=== PATIENT | male | born 1940 | race Caucasian/White ===

== ENCOUNTER → 2017-10-23 10:25 | Outpatient (CLI) | payer MEDICARE, OTHER, SELFPAY | PROVIDERS: Family Provider Internal Medicine; PCP Internal Medicine; Visit Provider Urology | DX: N39.0 Urinary tract infection, site not specified (principal) | CPT/HCPCS: 87086 ==

== ENCOUNTER → 2018-04-20 12:37 | Outpatient (CLI) | payer MEDICARE, OTHER, SELFPAY ==
[2018-04-20 13:57] LABS: Absolute Lymphocyte Count 0.85 X10^3/ul (0.83-4.51); Absolute Neutrophil Count 4.3 X10^3/uL (2.0-7.7); Basophil# 0.01 X10^3/uL; Basophil% 0.2 % (0-1); Eosinophil# 0.18 X10^3/uL; Hemoglobin 16.5 g/dl (13.0-16.5); Lymphocyte # 0.85 X10^3/ul (4.0); Lymphocyte % 14.1 % (19-41); Mean Corp Hgb Conc 35.1 g/gl (32-36); Mean Corpuscular Volume 91.1 fL (80-94); Mean Platelet Vol. 8.8 fl (6.2-12.0); Monocyte# 0.72 X10^3/uL; Monocyte% 11.9 % (0-10); Neutrophil # 4.27 X10^3/uL (2.7-7.7); Neutrophil % 70.6 % (47-70); Platelet Count 310 K/mm3 (150-450); RBC Distribution Width CV 11.9 % (11.6-14.6); RBC Distribution Width SD 39.3 fl (35.1-43.9); Red Blood Count 5.16 M/mm3 (4.6-6.2)
[2018-04-20 14:12] LABS: POSITIVE COUNT NO; POSITIVE DIFFERENTIAL NO; POSITIVE MORPHOLOGY NO
[2018-04-20 14:21] LABS: ALB/GLOB Ratio 1.1 RATIO (0.9-2.4); AST(SGOT) 23 U/L (15-37); Alanine Aminotransfer ALT/SGPT 30 U/L (16-61); Albumin, Serum 3.7 g/dL (3.2-5.0); Alkaline Phosphatase 80 U/L (45-117); Anion Gap 9 (5-15); BUN 19 mg/dL (7-18); BUN/Creat Ratio 16.2 RATIO (10-20); Calcium,Total 8.6 mg/dL (8.5-10.1); Chloride 94 mmol/L (98-107); Creatinine, Serum 1.17 mg/dL (0.70-1.30); EST Glomerular Filtration Rate 64 mL/min (>60); Est Glom Filt Rate - Afr Amer 78 mL/min (>60); Ferritin 74 ng/mL (26-388); Globulin 3.3 g/dL (2.2-4.2); Glucose 101 mg/dL (74-106); Iron 130 ug/dL (65-175); Iron Binding Capacity,Total 394 ug/dL (250-450); Potassium 4.5 mmol/L (3.5-5.1); Sodium Level 132 mmol/L (136-145); Thyroid Stim Hormone (TSH) 0.47 uIU/mL (0.358-3.74)
== END ==
PROVIDERS: Family Provider Internal Medicine; PCP Internal Medicine; Visit Provider Internal Medicine
DX: R53.83 Other fatigue (principal); R53.81 Other malaise; D64.9 Anemia, unspecified
CPT/HCPCS: 36415; 80053; 82728; 83540; 83550; 84439; 84443; 85025

== ENCOUNTER → 2018-06-24 07:41 | Outpatient (CLI) | payer MEDICARE, OTHER, SELFPAY ==
--- NOTE | 2018-06-24 07:42 | RDU_ITS ---
Reason For Study: Uncontrolled hypertension Right Renal Artery Left Renal Artery Right renal artery ostium 101/21.9 Left renal artery ostium 149/30.3 RSV/EDV. PSV/EDV. Right renal artery proximal Left renal artery proximal PSV/EDV 89.4/16.4 PSV/EDV. 150/32.8 . Right renal artery mid 85.7/24.6 Left renal artery mid 140/27.4 PSV/EDV. PSV/EDV . Right renal artery distal 70.3/12.8 Left renal artery distal 82.1/24.6 PSV/EDV. PSV/EDV. Right RAR 1.30. Left RAR 1.94. Right Renal Parenchyma Left Renal Parenchyma Upper Pole Medula 25.7/7.94 Left upper pole medulla 44.2/10.9 PSV/EDV. PSV/EDV . Right upper pole medulla EDR 0.31 . Left upper pole medulla EDR 0.25 . Right upper pole medulla R.I. Left upper pole medulla R.I. 0.75 . 0.69 . UP Cortex 20.5/6.11 PSV/EDV. Upper Jose Cortx 22.6/6.72 PSV/EDV. Left upper pole cortex EDR 0.30 . Right upper pole cortex EDR 0.30 . Left upper pole cortex R.I. 0.70 . Right upper pole cortex R.I. 0.70 . Left lower Pole medulla 36.1/10.1 Right lower Pole medulla 23.5/7.64 PSV/EDV . PSV/EDV . Left lower pole medulla EDR 0.28 . Right lower pole medulla EDR 0.33 . Left lower pole medulla R.I. 0.72 . Right lower pole medulla R.I. Lower Pole Cortx 20.5/7.64 PSV/EDV. 0.68 . Left lower pole cortex EDR 0.37 . Lower Pole Cortex 16.5/5.5 PSV/EDV. Left lower pole cortex R.I. 0.63 . Right lower pole cortex EDR 0.33 . Left Renal Hilar Right lower pole cortex R.I. 0.67 . LT Hilar avg 28.4/7.94 PSV/EDV . Right Renal Hilar Left hilar acceleration time 51 Right Hilar avg 45.5/15.3 PSV/EDV. m/sec. Right hilar acceleration time 59 Left Renal Dimensions m/sec. Left kidney size 10.1 cm . Right Renal Dimensions Left cortical dimension 1.4 cm . Right kidney size 10.2 cm . Cyst noted measuring 5.32 x 4.97 Right cortical dimension 1.58 cm . cm. Aorta Proximal abdominal aorta 1.59 x 1.63 cm . Proximal abdominal aorta peak systolic velocity is 77.5 cm/sec . Distal abdominal aorta 1.43 x 1.43 cm . Distal abdominal aorta peak systolic velocity is 110 cm/sec . Interpretation Summary <60% stenosis bilateral renal arteries Normal resistivity indices suggesting appropriate renal parenchymal function. Maintained right renal length 10.2cm and left renal length 10.1cm Suspect left renal cyst 5.32 x 4.97cm--clinical correlation would be appropriate. Ordering Physician: Kike Eaton Referring Physician: Tania Jackson Performed By: Emily Murrell RVT and Student
--- NOTE | 2018-06-24 07:42 | STE_ITS ---
Reason For Study: CAD, Fatigue Stress Results Protocol: Jese Protocol Maximum Predicted HR: 144 bpm Target HR: 122 bpm% Max imum Predicted HR: 91 % DurationHeart Rate Stage (mm:ss) (bpm) BPCom ment Baseline 72 150/82 No Chest Pain Jese Protocol Stage I 3:00 11 5 162/74No Chest Pain Jese Protocol Stage II 2:00 13 1 170/76No Chest Pain; Moderate Right Hip Pain Recovery 85 148/80 No Chest Pain Stress Duration: 5:00 mm:ss Maximum Stress HR: 131 bpmM ETS: 7 Baseline Echocardiogram Findings The estimated ejection fraction is 65 %. Stress Echo Wall motion Data Resting WMIntermediate WMStress WM Resting Wall Motion Wall Motion Stress No regional wall motion No regional wall motion abnormalities noted. abnormalities noted. EKG Data The baseline ECG displays normal sinus rhythm. The patient exercised according to the regular Jese protocol for a total duration of 5:00. The maximum heart rate attained was 131 beats per minute. This was 90% of maximum predicted heart rate. The patient exercised into stage 2 of the Jese protocol. During stress, there were no ST or T wave changes noted to suggest ischemia. No clinical angina was noted. Interpretation Summary The estimated ejection fraction is 65 %. Normal, adequate, treadmill echocardiogram. Negative for ischemia by EKG and echocardiographic criteria. No anginal symptoms noted. Rare PVC and PACs noted. Appropriate blood pressure response to exercise. Below average exercise capacity for age. Final LVEF of 75%. Test terminated due to hip pain. No complications. Ordering Physician: Kike Eaton Referring Physician: Kike Eaton Performed By: Olman Pereira RCS
== END ==
PROVIDERS: Family Provider Internal Medicine; PCP Internal Medicine; Referring Provider Internal Medicine Cardiovascular Disease; Visit Provider Internal Medicine Cardiovascular Disease
DX: I10 Essential (primary) hypertension (principal); E78.5 Hyperlipidemia, unspecified; I25.10 Atherosclerotic heart disease of native coronary artery without angina pectoris; R40.0 Somnolence
CPT/HCPCS: 93017; 93350; 93975

== ENCOUNTER → 2018-07-19 23:39 | Outpatient (CLI) | payer MEDICARE, OTHER, SELFPAY | PROVIDERS: Family Provider Internal Medicine; PCP Internal Medicine; Visit Provider Internal Medicine Cardiovascular Disease | DX: G47.10 Hypersomnia, unspecified (principal) | CPT/HCPCS: 95810 ==

== ENCOUNTER → 2018-08-20 07:43 | Outpatient (CLI) | payer MEDICARE, OTHER, SELFPAY ==
[2018-08-04 13:50] VITALS: BMI 28.5
[2018-08-06 14:02] VITALS: BMI 28.5
--- NOTE | 2018-08-20 14:11 | PFTCOMP ---
COMPLETE PULMONARY FUNCTION TEST INTERPRETATION Brief HPI: Patient is a 77 year old male, currently under the care of Lydia Brown, who presents to [facility] for complete pulmonary function tests secondary to diagnosis of dyspnea. Respiratory therapist reports good effort and reproducible results. Interpretation: Forced expiration spirometry shows no large airways obstructive ventilatory defect with an FEV1 of 106% predicted. There is a significant bronchodilator response in FVC by strict ATS criteria. Spirograms are of good quality and plateau slowly, indicating slowly emptying areas of the lungs. The respiratory flow volume loop shows a normal pattern. Lung volumes by body plethysmography show a normal total lung capacity at 6.25 L, 105% predicted. All other lung volumes are within normal limits. Diffusion capacity by carbon monoxide is elevated at 158% predicted. The airway resistance is normal. No previous pulmonary function tests were available for review. Impression: These pulmonary function tests are grossly within normal limits. Increase in FVC with bronchodilators may be secondary to prolonged exhalation time.
--- OUTSIDE RECORDS SUMMARY | 2018-10-15 01:19 | XMS RPT_ITS ---
:1940 Author Organization OHIP Support Name Relationship Address Phone MORGAN, PAT Unavailable [address] + [place] [address] R Unavailable Unavailable Unavailable BROWN, PAT Unavailable [phone] [place] [address] R Unavailable Unavailable Unavailable BROWN, PAT Unavailable [phone] [place] [address] R Unavailable Unavailable Unavailable BROWN, PAT Unavailable [phone] [place] [address] R Unavailable Unavailable Unavailable BROWN, PAT Unavailable [phone] [place] [address] R Unavailable Unavailable Unavailable BROWN, PAT Unavailable [phone] [place] [address] R Unavailable Unavailable Unavailable BROWN, PAT Unavailable [phone] [place] [address] R Unavailable Unavailable Unavailable BROWN, PAT Unavailable [phone] [place] [address] R Unavailable Unavailable Unavailable BROWN, PAT Unavailable [phone] [place] [address] R Unavailable Unavailable Unavailable BROWN, PAT Unavailable [phone] [place] [address] R Unavailable Unavailable Unavailable BROWN, PAT Unavailable [phone] [place] [address] R Unavailable Unavailable Unavailable BROWN, PAT Unavailable [phone] [place] [address] R Unavailable Unavailable Unavailable BROWN, PAT Unavailable [phone] [place] [address] R Unavailable Unavailable Unavailable BROWN, PAT Unavailable [phone] [place] [address] R Unavailable Unavailable Unavailable BROWN, PAT Unavailable [phone] [place] [address] R Unavailable Unavailable Unavailable BROWN, PAT Unavailable [address] + [place] [address] R Unavailable Unavailable Unavailable BROWN, PAT Unavailable [address] + [place] [address] R Unavailable Unavailable Unavailable BROWN, PAT Unavailable [address] + [place] [address] R Unavailable Unavailable Unavailable BROWN, PAT Unavailable [address] + [place] [address] R Unavailable Unavailable Unavailable BROWN, PAT Unavailable [address] + [place] [address] R Unavailable Unavailable Unavailable BROWN, PAT Unavailable [address] + [place] [address] R Unavailable Unavailable Unavailable BROWN, PAT Unavailable [address] + [place] [address] R Unavailable Unavailable Unavailable BROWN, PAT Unavailable [address] + [place] [address] R Unavailable Unavailable Unavailable BROWN, PAT Unavailable [address] + [place] [address] R Unavailable Unavailable Unavailable BROWN, PAT Unavailable [address] + [place] [address] R Unavailable Unavailable Unavailable BROWN, PAT Unavailable [address] + [place] [address] R Unavailable Unavailable Unavailable BROWN, PAT Unavailable [address] + [place] [address] R Unavailable Unavailable Unavailable BROWN, PAT Unavailable [address] + [place] [address] R Unavailable Unavailable Unavailable BROWN, PAT Unavailable [address] + [place] [address] R Unavailable Unavailable Unavailable BROWN, PAT Unavailable [address] + [place] [address] R Unavailable Unavailable Unavailable BROWN, PAT Unavailable [address] + [place] [address] R Unavailable Unavailable Unavailable BROWN, PAT Unavailable [address] + [place] [address] R Unavailable Unavailable Unavailable BROWN, PAT Unavailable [address] + [place] [address] R Unavailable Unavailable Unavailable BROWN, PAT Unavailable [phone] [place] [address] R Unavailable Unavailable Unavailable R Unavailable Unavailable Unavailable BROWN, PAT Unavailable [phone] [place] [address] R Unavailable Unavailable Unavailable Care Team Providers Name Role Phone Kike Eaton Attending Unavailable Oleghe, Efewongbe Referring Unavailable Kike Eaton Attending Unavailable Kike Eaton Referring Unavailable Oleghe, Efewongbe Primary Care Unavailable Kike Eaton Attending Unavailable Kike Eaton Referring Unavailable Oleghe, Efewongbe Primary Care Unavailable Valdemar Germain Consulting Unavailable Stephanie Lydia Consulting Unavailable Jese Osorio Attending Unavailable Lydia Brown Referring Unavailable Kike Eaton Attending Unavailable Oleghe, Efewongbe Referring Unavailable Kike Eaton Attending Unavailable Kike Eaton Referring Unavailable Oleghe, Efewongbe Primary Care Unavailable Oleghe, Efewongbe Attending Unavailable Oleghe, Efewongbe Primary Care Unavailable Huber Solano [facility] Attending Unavailable Oleghe, Efewongbe Referring Unavailable Oleghe, Efewongbe Primary Care Unavailable Oleghe, Efewongbe Attending Unavailable Oleghe, Efewongbe Referring Unavailable Oleghe, Efewongbe Primary Care Unavailable Huber Solano [facility] Consulting Unavailable Oleghe, Efewongbe Attending Unavailable Oleghe, Efewongbe Referring Unavailable Oleghe, Efewongbe Primary Care Unavailable Dean Vazquez Attending Unavailable Dean Vazquez Referring Unavailable Oleghe, Efewongbe Primary Care Unavailable Oleghe, Efewongbe Attending Unavailable Oleghe, Efewongbe Referring Unavailable Oleghe, Efewongbe Primary Care Unavailable Jaden Mustafa Attending Unavailable Oleghe, Efewongbe Referring Unavailable Oleghe, Efewongbe Primary Care Unavailable Nel Mcarthur Attending Unavailable Oleghe, Efewongbe Attending Unavailable Oleghe, Efewongbe Referring Unavailable Oleghe, Efewongbe Primary Care Unavailable Oleghe, Efewongbe Attending Unavailable Oleghe, Efewongbe Referring Unavailable Oleghe, Efewongbe Primary Care Unavailable Oleghe, Efewongbe Attending Unavailable Oleghe, Efewongbe Referring Unavailable Oleghe, Efewongbe Attending Unavailable Oleghe, Efewongbe Referring Unavailable Oleghe, Efewongbe Primary Care Unavailable Huber Solano [facility] Attending Unavailable Oleghe, Efewongbe Referring Unavailable Oleghe, Efewongbe Primary Care Unavailable Oleghe, Efewongbe Attending Unavailable Oleghe, Efewongbe Referring Unavailable Oleghe, Efewongbe Primary Care Unavailable Oleghe, Efewongbe Attending Unavailable Oleghe, Efewongbe Referring Unavailable Oleghe, Efewongbe Primary Care Unavailable Huber Solano [facility] Attending Unavailable Oleghe, Efewongbe Referring Unavailable Oleghe, Efewongbe Primary Care Unavailable Huber Solano [facility] Attending Unavailable Oleghe, Efewongbe Referring Unavailable Oleghe, Efewongbe Primary Care Unavailable Kike Eaton Attending Unavailable Oleghe, Efewongbe Referring Unavailable Oleghe, Efewongbe Primary Care Unavailable Kike Eaton Attending Unavailable Kike Eaton Referring Unavailable Oleghe, Efewongbe Primary Care Unavailable Kike Eaton Attending Unavailable Kike Eaton Referring Unavailable Oleghe, Efewongbe Primary Care Unavailable Kike Eaton Consulting Unavailable Duane Cummings Attending Unavailable Kike Eaton Referring Unavailable Oleghe, Efewongbe Primary Care Unavailable Kike Eaton Consulting Unavailable Kike Eaton Attending Unavailable Oleghe, Efewongbe Primary Care Unavailable Lydia Brown Attending Unavailable Oleghe, Efewongbe Referring Unavailable Huber Solano [facility] Attending Unavailable Oleghe, Efewongbe Referring Unavailable CebuDuane anderson Attending Unavailable Oleghe, Efewongbe Referring Unavailable Lydia Brown Attending Unavailable Lydia Brown Referring Unavailable Oleghe, Efewongbe Primary Care Unavailable Duane Cummings Attending Unavailable Cebul Duane Referring Unavailable Oleghe, Efewongbe Primary Care Unavailable Valdemar Germain Attending Unavailable Warr[place]ita Valdemar Referring Unavailable Oleghe, Efewongbe Primary Care Unavailable Lydia Brown Attending Unavailable Lydia Brown Referring Unavailable Oleghe, Efewongbe Primary Care Unavailable PROBLEMS PROBLEMS DATE TYPE CONDITION / CODE ATTENDING STATUS SOURCE 09/01/2018 Unknown R00.2 - Palpitations Kike Eaton Active [place] / R00.2(ICD-10) [facility] Rep[facility] 09/01/2018 Unknown I49.3 - Ventricular Kike Eaton Active [place] premature Community depolarization / Hospital I49.3(ICD-10) Repository 09/01/2018 Unknown E03.9 - Kike Eaton Active [place] Hypothyroidism, Community unspecified / Hospital E03.9(ICD-10) Repository 08/30/2018 Unknown G47.33 - Obstructive Stephanie Active [place] sleep apnea (adult) [facility] (pediatric) / Hospital G47.33(ICD-10) Repository 09/03/2018 Unknown R06.09 - Other forms Jese Osorio Active [place] of dyspnea / Community R06.09(ICD-10) Hospital Repository 08/06/2018 Unknown Z12.10 - Encounter Duane Cummings Active [place] for screening for Community malignant neoplasm of Hospital intestinal tract, Repository unspecified / Z12.10(ICD-10) 08/04/2018 Unknown Z76.89 - Persons Stephanie Active [place] encountering health [facility] services in other Hospital specified Repository circumstances / Z76.89(ICD-10) 08/04/2018 Unknown Z23 - Encounter for Anjelica Brown immunization / [facility] Z23(ICD-10) Hospital Repository 07/20/2018 Unknown I10 - Essential Kike Eaton Active [place] (primary) Community hypertension / Hospital I10(ICD-10) Repository 07/20/2018 Unknown R53.81 - Other Kike Eaton Active [place] malaise / Community R53.81(ICD-10) Hospital Repository 07/20/2018 Unknown R53.83 - Other Kike Eaton Active [place] fatigue / Community R53.83(ICD-10) Hospital Repository 07/20/2018 Unknown R40.0 - Somnolence / Kike Eaton Active [place] R40.0(ICD-10) [facility] Hospital Repository 07/20/2018 Unknown G47.10 - Hypersomnia, Kike Eaton Active [place] unspecified / Community G47.10(ICD-10) Hospital Repository 06/24/2018 Unknown E78.5 - CeDuane ly Active [place] Hyperlipidemia, Community unspecified / Hospital E78.5(ICD-10) Repository 06/24/2018 Unknown I25.10 - CeDaune ly Active [place] Atherosclerotic heart Community disease of [facility] coronary artery Repository without angina pectoris / I25.10(ICD-10) 04/20/2018 Unknown D64.9 - Anemia, Oleghe, Active [place] unspecified / [place] Community D64.9(ICD-10) Hospital Repository 09/29/2017 Unknown Z79.899 - Other long Huber Solano Active [place] term (current) drug [facility] Community therapy / Hospital Z79.899(ICD-10) Repository 09/29/2017 Unknown N40.0 - Benign SolanoHuber brink Active [place] prostatic hyperplasia [facility] Community without lower urinary Hospital tract symptoms / Repository N40.0(ICD-10) 09/29/2017 Unknown 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 / [facility] Community E29.1(ICD-10) Hospital Repository PROCEDURES PROCEDURES No Procedure Records FoundRESULTS RESULTS CBC-COMPLETE BLOOD CNT Collected: 09/08/2018 Status: F Source: [place] NO DIFF 4:25 [place] [facility] [place] CODE TESTS RESULT OUT OF RANGE REFERENCE UNITS LAB L100.1000 4.4-11.0 K/mm3 Normal WBC 10.2 LAB L100.1200 4.6-6.2 M/mm3 Normal RBC 4.80 LAB L100.1300 13.0-16.5 g/dl Normal HGB 15.6 LAB L100.1400 40-54 % Normal HCT 45.0 LAB L100.1500 80-94 fL Normal MCV 93.8 LAB L100.1600 27.0-32.0 pg High MCH 32.5 LAB L100.1700 32-36 g/gl Normal MCHC 34.7 LAB L100.1810 11.6-14.6 % Normal RDW CV 12.8 LAB L100.1820 35.1-43.9 fl Normal RDW SD 43.2 LAB L100.1900 150-450 K/mm3 Normal PLT 237 LAB L100.2000 6.2-12.0 fl Normal MPV 9.1 Performed By: #### L100.0500 #### [facility] [address] [place], [place], [id number] BASIC METABOLIC Collected: 09/08/2018 Status: F Source: [place] PROFILE (BMP) 4:25 AM [facility] [place] CODE TESTS RESULT OUT OF RANGE REFERENCE UNITS LAB L501.0100 74-106 mg/dL High GLU 116 Result Comment: Fasting Glucose result from 100 to 125 mg/dL suggests IMPAIRED HOMEOSTASIS per A.D.A. criteria. Please note revised GLUCOSE reference range effective 2017. LAB L501.1000 7-18 mg/dL High BUN 24 LAB L501.1100 0.70-1.30 mg/dL Normal CREAT,SERUM 1.12 Result Comment: The validity of the calculated GFR AND GFRAA in patients over 70 years has not been determined. Clinical correlation is essential. LAB L501.1110 >60 mL/min Normal EST GFR 68 Result Comment: Non- GFR Calc LAB L501.1115 >60 mL/min Normal EST GFR - AA 82 Result Comment: GFR Calc LAB L501.1255 ml/min Normal Estimated CRCL 54.29 LAB L501.1300 10-20 RATIO High BUN/CRE 21.4 LAB L501.2200 8.5-10 mg/dL Normal .1 CA 8.6 LAB L501.5300 136-14 mmol/L Low 5 NA 135 LAB L501.5600 3.5-5. mmol/L Normal 1 K 4.7 Result Comment: Moderate Hemolysis, Result may be falsely increased. LAB L501.5900 98-107 mmol/L Normal CL 100 LAB L501.6100 21.0-32.0 mmol/L Normal CO2 25.0 LAB L501.6200 5-15 Normal GAP 10 Performed By: #### L500.2500, L500.4100 #### [facility] [address] [place], [address] LIPID PROFILE Collected: 09/08/2018 Status: F Source: [place] 4:25 AM [facility] [place] TYPE CODE TESTS RESULT OUT OF RANGE REFERENCE UNITS LAB L501.4900 200 mg/dL Normal CHOL 131 Result Comment: <200 mg/dL Desirable 200-240 mg/dL Borderline >240 mg/dL High Risk LAB L501.5000 mg/dL Normal TRIG 163 Result Comment: The drugs N-Acetylcysteine and Metamizole may falsely depress this assay. Serum Triglycerides Reference Interval Normal <150 mg/dL Borderline high 150 - 199 mg/dL High 200 - 499 mg/dL Very High > or = 500 mg/dL LAB L501.6400 mg/dL Low HDL 36 Result Comment: The drugs N-Acetylcysteine and Metamizole may falsely depress this assay. Reference Range HDL <40 mg/dL Low HDL Cholesterol HDL >or= 60 mg/dL High HDL Cholesterol LAB L501.6500 0-130 mg/dL Normal LDL 62 LAB L501.6600 5-40 mg/dL Normal VLDL 33 Performed By: #### L500.2500, L500.4100 #### [facility] [address] [place], [address] ACT ACTIVATED CLOTTING Collected: 09/07/2018 Status: F Source: [place] TIME 11:30 AM [facility] [place] TYPE CODE TESTS RESULT OUT OF RANGE REFERENCE UNITS LAB L9100.0100 74-137 sec High ACTk CLOT 169 TIME Performed By: #### L9100.0100 #### [facility] Point of Care [address] [place] [address] CARDIOLOGY VISIT Observed: 09/06/2018 Status: F Source: [place] REPORT 11:26 AM [facility] [place] [facility] [address] [place] [address] OFFICE VISIT Date of Service: 09/06/18 MR#: [id number] Acct: [id number] Name: IMANI MINER Rep #: [id number] : 1940 Provider: Kike Eaton MD Age/Sex: 77/M Location: [facility] [place] Status: Signed HPI HPI Chief Complaint: 3 month f/u Details: IMANI MINER, is a 77 M who presents to the office today for establishment of cardiac care, hypertension, known coronary disease, hypercholesterolemia. Specifically the patient was referred to our office by Dr. Fe Rosario for assistance with hypertension. On further history he is a former patient Dr. Dunn seeing him last in 2013. At that time he had undergone a heart catheterization on 03/21/14 which demonstrated mild nonobstructive disease of his left main, LAD, left circumflex and RCA. His EF was 65% at that time. He has never had any interventions. He is a nondiabetic, lifelong smoker, lifelong nondrinker, but does have hypertriglyceridemia currently on statin based medicines. His father of an UT at age 60, and his mother had a pacemaker. His brother recently this past weekend from COPD and has a sister with known coronary disease who is also my patient. On further history the patient states that he has had progressively worsening fatigue and tiredness over the last several months with decreased exercise capacity. He used to be able to cut his whole grass in one sitting, and now has to do it in 2 phases over last summer. He is also had a headache for the last 3 days and has a history of migraines in the past. He denies any chest pain, angina but does complain of excessive daytime somnolence and sometimes takes naps both in the morning and in the evening. He had a sleep study about 10 years ago. Patient has shown me his log of blood pressures which range between 100s and 130 systolic, and ironically feels better when his blood pressure is in the low 100s. Patient underwent treadmill echocardiogram on 06/24/18 which was negative for inducible ischemia. Despite this, the patient continues to have symptoms of dyspnea on exertion and shortness of breath. In addition, he underwent a 24-hour Holter monitor which showed over 11,000 PVCs comprising 10.1% of his total QRSs. He had no runs noted. To better assess both his dyspnea on exertion as well as his excessive amount of PVCs, he is awaiting diagnostic coronary catheterization tomorrow morning. He denies any exertional chest pain. His main complaint is fatigue and apparently underwent a sleep study which was positive for obstructive sleep apnea. He is awaiting evaluation for CPAP therapy. In addition he underwent pulmonary function test on 08/20/18 which were negative for COPD. He is a non-smoker. He is here for an updated H AND P. In our office today's blood pressure is 110/64, with a pulse of 68 and regular. Physical exam demonstrates clear lungs bilaterally, regular rate and rhythm, normal S1/S2, no S3 or S4. No edema noted. EKG dated 01/03/17 showed normal sinus rhythm, left anterior hemiblock, no evidence of previous myocardial infarction. EKG today, 06/08/18 shows normal sinus rhythm, left anterior hemiblock, no evidence of previous myocardial infarction per his lipids as of 09/23/17 showed LDL of 58 and HDL of 36. Intake Vital Signs09/06/18 Height 5 ft 8 in 09/06/18 Weight: 185 lb 09/06/18 Body Mass Index (BMI) 28.1 09/06/18 Blood Pressure 110/64 Intake Visit Reasons: Update H AND P per EY Assistant Printer Floor Covering Required: No Is patient in pain?: No Allergies amoxicillin [From Augmentin] Adverse Reaction (Intermediate, Verified 09/06/18 11:12) Nausea/Vom/Diarrhea clavulanic acid [From Augmentin] Adverse Reaction (Intermediate, Verified 09/06/18 11:12) Nausea/Vom/Diarrhea lisinopril Adverse Reaction (Intermediate, Verified 09/06/18 11:12) cough atorvastatin [From Lipitor] Adverse Reaction (Verified 09/06/18 11:12) Pain in joints gemfibrozil [From Lopid] Adverse Reaction (Verified 09/06/18 11:12) Pain in joints niacin Adverse Reaction (Verified 09/06/18 11:12) Other Medications Aspirin [Aspirin, Baby] 81 mg PO QHS 03/20/14 [History Confirmed 09/06/18] Finasteride [Proscar] 5 mg PO QHS 03/20/14 [History Confirmed 09/06/18] Magnesium 500 mg PO DAILY 03/20/14 [History Confirmed 09/06/18] Multivitamins,Therapeutic [Multivitamin] 1 tab PO DAILY 03/20/14 [History Confirmed 09/06/18] Allergy Shot IM QWEEK 08/13/16 [History Confirmed 09/06/18] Bilberry 100 mg PO QHS 08/13/16 [History Confirmed 09/06/18] Calcium Carbonate [Calcium] 600 mg PO QHS 08/13/16 [History Confirmed 09/06/18] Cholecalciferol (VIT D3) [Vitamin D] 2,000 unit PO QHS 08/13/16 [History Confirmed 09/06/18] Testosterone Cypionate [Depo-Testosterone] 100 mg IM UD 08/13/16 [History Confirmed 09/06/18] Ubidecarenone [Co Q-10] 30 mg PO QHS 08/13/16 [History Confirmed 09/06/18] omeprazole 20 mg capsule,delayed release 20 mg PO DAILY 09/09/17 [History Confirmed 09/06/18] psyllium seed (sugar) oral powder 1 tbsp PO DAILY 09/09/17 [History Confirmed 09/06/18] budesonide-formoterol HFA 160 mcg-4.5 mcg/actuation aerosol inhaler 2 puff INHALATION BID 05/21/18 [History Confirmed 09/06/18] amlodipine 2.5 mg tablet 2.5 mg PO QHS 06/08/18 [History Confirmed 09/06/18] cyanocobalamin (vit B-12) 500 mcg tablet 250 mcg PO DAILY@0800 tab 06/08/18 [History Confirmed 09/06/18] labetalol 200 mg tablet 200 mg PO BID #180 tab 08/17/18 [Rx Confirmed 09/06/18] levothyroxine 112 mcg tablet 112 mcg PO QDAY #90 tab 08/17/18 [Rx Confirmed 09/06/18] Gabapentin [Neurontin] 300 mg PO TID 08/20/18 [History Confirmed 09/06/18] Hydrochlorothiazide [Hctz] 25 mg PO DAILY 08/20/18 [History Confirmed 09/06/18] Rosuvastatin Calcium 5 mg PO QHS 08/20/18 [History Confirmed 09/06/18] sertraline 25 mg tablet 25 mg PO LUNCH #90 tab 08/31/18 [Rx Confirmed 09/06/18] losartan 100 mg tablet 100 mg PO QHS #90 tab 09/02/18 [Rx Confirmed 09/06/18] clopidogrel 75 mg tablet 75 mg PO .COMPLEX #30 tab 09/03/18 [Rx Confirmed 09/06/18] [facility] Medical History Pre-operative cardiovascular exam, new EKG abnormalities c/w ischemia (Acute) Premature ventricular contractions (Acute) Screening for intestinal cancer (Acute) Hearing loss (Chronic) Nonrheumatic tricuspid (valve) insufficiency (Chronic) Hypothyroidism (Chronic) Atherosclerotic heart disease of [place] coronary artery without angina pectoris (Chronic) Malaise and fatigue (Acute) Hypertension (Chronic) Hypertension (Chronic) Gastroesophageal reflux disease (Chronic) Hyperlipidemia (Chronic) Arthritis (Acute) Hay fever (Acute) Shoulder pain (Acute) Crohns disease (Chronic) Surgical History History of left heart catheterization (Chronic 03/21/14) eye lesion removal (Acute) H/O hemorrhoidectomy (Resolved) H/O vasectomy (Resolved) History of prostate surgery (Resolved) Hx of appendectomy (Resolved) Family History Grandfather CVA (cerebral vascular accident) Depression Brother COPD (chronic obstructive pulmonary disease) Grandmother Depression Son Arthritis Father Arthritis CAD (coronary artery disease) Mother Hypertension Hyperlipidemia Pacemaker Other Cancer Social History household members: spouse housing: house current occupational status: retired pets and animals: No Smoking Status: Never smoker second hand exposure: No alcohol intake: never substance use type: does not use what type of physical activity do you participate in: walking frequency: 5-6 times per week ROS Const Const: Positive for other (Having cath tomorrow for new onset, frequent PVC's on holter.); negative for fatigue, weakness, body ache, fever(s), headache(s), chills, frequent falls, night sweats, daytime sleepiness, difficulty sleeping, excessive sweating, weight gain, weight loss, increased appetite, poor appetite or anorexia Eyes Eyes: Negative for blind spots, loss of peripheral vision, transient loss of vision, blurry vision, change in vision, double vision, floaters, tunnel vision or other ENT ENT: Negative for headache(s), dizziness, hearing loss, tinnitus, Nosebleed/epistaxis, balance problems, post nasal drip, lip swelling, tongue swelling, bleeding gums, hoarseness, neck pain, dry mouth or other Cardio Chest Pain: No Palpitations: Yes Edema: None Muscle aches with walking: None Resp Respiratory: Negative for SOB with activity, SOB at rest, SOB orthopnea\SOB lying down, Cough, Coughing up blood/hemoptysis, chest congestion, pain on inspiration, snoring, stridor, wheezing, crackles, paroxysmal nocturnal dyspnea or other GI GI: Negative nausea, vomiting, heartburn, constipation, belching, bloating, cramping, vomiting blood/hematemesis, bright, red blood in stools, black,tarry stools, loose stools, Difficulty Swallowing or other : Negative for hematuria, frequent nighttime urination/ nocturia, erectile dysfunction or abnormal vaginal bleeding Musc Musc: Negative for balance problems, muscle aches/ myalgia, muscle weakness or joint pain Skin Skin: Negative redness, non-healing lesions, rash, unusual bruising, skin ulcer, wounds, jaundice or other Neuro Neuro: Negative for weakness, headache(s), frequent falls, blurry vision, double vision, dizziness, lightheadedness, near syncope, syncope, orthostatic symptoms, confusion, memory loss, restless legs, vertigo, seizures, lack of coordination or other Cl Hematologic/Lymphatic: Negative for easy bleeding, easy bruising, enlarged lymph nodes or other Endo Endo: Negative for fatigue, excessive sweating, cold intolerance, heat intolerance, flushing, increased thirst/drinking, increased hunger, hair loss, hair growth or other Psych Psych: Negative for anxiety, depression, thoughts of harming anyone, thoughts of harming yourself, visual hallucinations, panic attacks or audible hallucinations Allergy Allergy/Immunology: Negative for lip swelling, Negative for tongue swelling, Negative for rash, Negative for throat swelling, Negative for hives Cardiology Exam Const Appearance: cooperative, healthy appearing and no acute distress Nutritional Appearance: well nourished Orientation: alert, oriented x3 and oriented to person Head Head: normal to inspection, atraumatic and normocephalic Nose: external nose normal Face and Sinus: face symmetric Mouth: oral mucosae normal Eyes General: appearance normal, both eyes and all related structures Eyelids: eyelids normal Conjunctivae: conjunctivae normal Pupils: PERRL and normal by confrontation EOM: EOM intact bilaterally Neck Neck: normal visual inspection and full ROM Carotids: normal carotid upstroke Chest Chest inspection: normal inspection of the chest Auscultation: Bilateral: Clear to Auscultation Cardio Palpation: normal PMI Rate: regular rate Rhythm: regular rhythm Heart sounds: S1 normal and S2 normal GI GI: normal to inspection, no hepatosplenomegaly and bowel sounds present Neuro General: alert, oriented x3, awake, CN's II-XI intact bilaterally and moves all extremities Skin Skin: no rashes or lesions noted Extremities Pulses: Normal: Right Femoral Pulse, Left Femoral Pulse, Right Dorsalis Pedis Pulse, Left Dorsalis Pedis Pulse, Right Posterior Tibial Pulse, Left Posterior Tibial Pulse, Right Radial Pulse, Left Radial Pulse Lower Extremity Edema: None: Bilateral Psych Psychological: normal affect Assessment AND Plan 1. Premature ventricular contractions I49.3 Plan 1. PVCs: The patient's 24-hour Holter monitor showed greater than 10% PVCs for his total heartbeat burden. He has known coronary disease documented in 2013 and has had progressively worsening dyspnea on exertion as well as significant fatigue and decreased exercise capacity. In order to better evaluate his symptoms I recommended a repeat diagnostic coronary angiogram which will take place tomorrow 09/07/18. In the meantime we will continue baby aspirin, amlodipine, Plavix, labetalol, losartan. 2. EH (obstructive sleep apnea) G47.33 Plan 2. Obstructive sleep apnea: The patient was diagnosed with moderate obstructive sleep apnea and is awaiting CPAP titration. If his coronary arteries are within normal limits and no significant disease is noted all of his symptoms may be related to his obstructive sleep apnea including his PVCs and fatigue. I would recommend consideration of discontinuation of labetalol and switching him to by systolic which is a decreased side effect profile for fatigue and tiredness. 3. Return office in 6 months. This note was generated using a voice recognition system and there may be incorrect words, spelling or punctuation that were not noted when reviewing the office note prior to saving. Plan Detail Follow Up 6M (Angelito) Coding Level of Care Code Off vis,est,level 3 Diagnoses Premature ventricular contractions I49.3 EH (obstructive sleep apnea) G47.33 Coding Level of Care Code Off vis,est,level 3 Diagnoses Premature ventricular contractions I49.3 EH (obstructive sleep apnea) G47.33 09/06/18 1126 <Electronically signed by Kike Eaton MD> Date Kike Eaton MD Cosigner Signature: Date (if applicable) CC: Tania Jackson MD CBC W/DIFF, AUTOMATED Collected: 09/03/2018 Status: F Source: [facility] 1:06 PM [facility] Order Comment: Comments: for heart cath Comments: for heart cath TYPE CODE TESTS RESULT OUT OF RANGE REFERENCE UNITS LAB L100.1000 4.4-11.0 K/mm3 Normal WBC 7.0 LAB L100.1200 4.6-6.2 M/mm3 Normal RBC 5.11 LAB L100.1300 13.0-16.5 g/dl Normal HGB 16.2 LAB L100.1400 40-54 % Normal HCT 47.5 LAB L100.1500 80-94 fL Normal MCV 93.0 LAB L100.1600 27.0-32.0 pg Normal MCH 31.7 LAB L100.1700 32-36 g/gl Normal MCHC 34.1 LAB L100.1810 11.6-14.6 % Normal RDW CV 12.6 LAB L100.1820 35.1-43.9 fl Normal RDW SD 42.7 LAB L100.1900 150-450 K/mm3 Normal PLT 249 LAB L100.2000 6.2-12.0 fl Normal MPV 9.4 LAB L100.2100 47-70 % High NEUT% 74.4 LAB L100.2200 19-41 % Low LY% 12.1 LAB L100.2300 0-10 % High MONO% 11.0 LAB L100.2400 0-5 % Normal EO% 2.1 LAB L100.2500 0-1 % Normal BASO% 0.3 LAB L100.2550 0.0-0.9 % Normal IM GRAN % 0.100 Result Comment: IG% - Immature Granulocytes (promyelocytes, myelocytes and metamyelocytes) > 1% indicates that a LEFT SHIFT is Present. LAB L100.2620 2.0-7.7 X10 3/uL Normal Absolute Neut 5.2 LAB L100.2720 0.83-4.51 X10 3/ul Normal Absolute Lymph 0.85 Performed By: #### L100.0100 #### [facility] [address] [place], [address] CHEST PA AND LATERAL Observed: 09/03/2018 Status: F Source: [place] 1:03 PM [facility] Imaging Services [address] [place] [address] Chest PA and Lateral MR#: [id number] Acct: [id number] Name: IMANI MINER Rep #: [id number] : 1940 M 77 From: Lupillo Smith MD PCP: Tania Jackson MD Status: REG CLI Study: Chest PA and Lateral Date of Exam: 09/03/18 Exam# [id number] Ordering Dr: Kike Eaton MD STUDY: X-RAY CHEST REASON FOR EXAM: Male, 77 years old. Tachycardia TECHNIQUE: PA and lateral views of the chest. COMPARISON: 01/26/2017 FINDINGS: Lungs are expanded. There is persistent opacification in the lingula thought to be atelectasis on the previous study but is more likely fibrosis since it is unchanged. No superimposed acute process. There is no demonstrated pleural abnormality. Normal size heart. Normal mediastinum and tati. Normal visualized pulmonary arteries. Normal visualized aortic arch and descending thoracic aorta. Normal visualized thoracic spine. Normal visualized ribs, clavicles, and shoulders. There is no demonstrated abnormality of the visualized soft tissue structures of the upper abdomen. 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 No acute pulmonary process Electronically Signed: Morales Smith MD at 17:00 EST , Service support , CC: Kike Eaton MD; Tania Jackson MD Mechanical Handyman: Signed BASIC METABOLIC Collected: 09/01/2018 Status: F Source: [facility] PROFILE (BMP) 10:25 AM [facility] TYPE CODE TESTS RESULT OUT OF RANGE REFERENCE UNITS LAB L501.0100 74-106 mg/dL Normal GLU 100 Result Comment: Fasting Glucose result from 100 to 125 mg/dL suggests IMPAIRED HOMEOSTASIS per A.D.A. criteria. Please note revised GLUCOSE reference range effective 2017. LAB L501.1000 7-18 mg/dL Normal BUN 17 LAB L501.1100 0.70-1.30 mg/dL Normal CREAT,SERUM 1.11 Result Comment: The validity of the calculated GFR AND GFRAA in patients over 70 years has not been determined. Clinical correlation is essential. LAB L501.1110 >60 mL/min Normal EST GFR 68 Result Comment: Non- GFR Calc LAB L501.1115 >60 mL/min Normal EST GFR - AA 83 Result Comment: GFR Calc LAB L501.1300 10-20 RATIO Normal BUN/CRE 15.3 LAB L501.2200 8.5-10.1 mg/dL CA Normal 8.9 LAB L501.5300 136-145 mmol/L NA Normal 136 LAB L501.5600 3.5-5.1 mmol/L K Normal 4.1 LAB L501.5900 98-107 mmol/L CL Normal 98 LAB L501.6100 21.0-32.0 mmol/L Normal CO2 30.0 LAB L501.6200 5-15 Normal GAP 8 Performed By: #### L500.2500, L501.5200, L501.9310, L501.9520 #### [facility] [address] [place], [address] MAGNESIUM Collected: 09/01/2018 Status: F Source: [place] 10:25 AM [facility] TYPE CODE TESTS RESULT OUT OF RANGE REFERENCE UNITS LAB L501.5200 1.6-2.6 mg/dL Normal MG 2.1 Performed By: #### L500.2500, L501.5200, L501.9310, L501.9520 #### [facility] [address] [place], [address] T4 TOTAL, THYROXIN Collected: 09/01/2018 Status: F Source: [place] 10:25 AM [facility] TYPE CODE TESTS RESULT OUT OF REFERENCE UNITS RANGE LAB L501.9310 4.5-12.1 ug/dL T4 High THYROXIN 12.3 Performed By: #### L500.2500, L501.5200, L501.9310, L501.9520 #### [facility] [address] [place], [address] THYROID STIM HORMONE Collected: 09/01/2018 Status: F Source: [place] (TSH) 10:25 AM [facility] TYPE CODE TESTS RESULT OUT OF RANGE REFERENCE UNITS LAB L501.9520 0.358-3.74 uIU/mL Normal TSH 0.78 Performed By: #### L500.2500, L501.5200, L501.9310, L501.9520 #### [facility] [address] [place], [address] 12 LEAD EKG PERFORMED Observed: 09/01/2018 Status: F Source: [facility] BY [facility] 9:55 AM [facility] [address] [place] [address] 12 Lead EKG performed by [facility] 09/01/18954 MR#: [id number] Acct: [id number] Name: IMANI MINER Rep #: [id number] : 1940 77 From: Kike Eaton MD Attending Dr: Kike Eaton MD Status: DEP AMB Ordering Dr: Kike Eaton MD Date: 09/01/18 Location: [facility] Sex: M C Admitted: BMS/12 Lead EKG performed by [facility] ECG Report Interpretation Sinus Rhythm - frequent ectopic ventricular beat s # VECs = 2-Left axis -anterior fascicular block. ABNORMAL Electronically signed on 09/03/2018 at 15:05 by Kike Eaton Software Version 8610 09/03/181510 Date Kike Eaton MD CC: Tania Jackson MD Date Dictated: 09/01/18954 Date Transcribed: 09/01/18954 Mechanical Handyman: Signed ORB SELLA POST Observed: 08/26/2018 Status: F Source: [facility] FOSSA EAR W/O 1:28 PM [facility] Imaging Services [address] [place] [address] Orb Sella Post Fossa Ear w/o MR#: [id number] Acct: [id number] Name: IMANI MINER Rep #: [id number] : 1940 M 77 From: Luca Arteaga MD PCP: Tania Jackson MD Status: REG CLI Study: Orb Sella Post Fossa Ear w/o Date of Exam: 08/26/18 Exam# [id number] Ordering Dr: Valdemar Germain MD ADDENDUM by Luca Arteaga MD on 08/27/18 at 0520 ADDENDUM 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 PROCEDURE: The study was done without contrast and presented in 3 planes. FINDINGS: Right temporal bone: There is a soft tissue density deep within the external auditory canal consistent with the. The right tympanic membrane is intact. The ossicular structures in the middle ear are normal. There is no evidence of cholesteatoma. The inner ear and the vestibulocochlear apparatus are normal. There is no evidence of a cerebellopontine angle mass. Left temporal bone: The left occipital external auditory canal is normal. The left tympanic membrane is intact. The scutum is normal. The ossicular structures in the middle ear are normal. There is no evidence of cholesteatoma. The vestibulocochlear apparatus on both sides are normal. The left internal auditory canal is normal. CT/Orb Sella Post Fossa Ear w/o IMPRESSION: No evidence of any sensorineural hearing loss. A soft tissue attenuation in the distal right external auditory canal. This may contribute to a conductive hearing loss on the right side. Electronically Signed: Luca Arteaga MD at 4:55 EST Tel , Service support , CC: Pastor Germain MD; Tania Jackson MD Mechanical Handyman: Signed OPERATIVE REPORT - Observed: 08/24/2018 Status: F Source: [place] ENDOSCOPY 8:31 AM [facility] Medical Records Department [address] [place] [address] Operative Report - Endoscopy MR#: [id number] Acct: [id number] Name: IMANI MINER Rep #: [id number] : 1940 77 From: Duane Cummings MD PCP: Tania Jackson MD Status: [place] [facility] [place] Name: Imani Miner Procedure Date: 08/24/2018 8:09 AM Date of : 1940 Age: 77 Procedure: Colonoscopy Indications: Screening for colorectal malignant neoplasm Providers: Duane Cummings MD Referring MD: Duane Cummings MD Medicines: See the Anesthesia note for documentation of the administered medications Patient Profile: Last Colonoscopy: August 2008. Complications: No immediate complications. Procedure: Pre-Anesthesia Assessment: - Prior to the procedure, a History and Physical was performed, and patient medications and allergies were reviewed. The patient's tolerance of previous anesthesia was also reviewed. The risks and benefits of the procedure and the sedation options and risks were discussed with the patient. All questions were answered, and informed consent was obtained. Prior Anticoagulants: The patient has taken no previous anticoagulant or antiplatelet agents. ASA Grade Assessment: II - A patient with mild systemic disease. After reviewing the risks and benefits, the patient was deemed in satisfactory condition to undergo the procedure. After I obtained informed consent, the scope was passed under direct vision. Throughout the procedure, the patient's blood pressure, pulse, and oxygen saturations were monitored continuously. The pediatric colonoscope was introduced through the anus and advanced to the ileocolonic anastomosis. The colonoscopy was performed without difficulty. The patient tolerated the procedure well. The quality of the bowel preparation was good. Ileocolonic anastomosis were photographed. Scope In: 8:15:42 AM Scope Withdrawal Time 0 hours 6 minutes 2 seconds Scope Out: 8:23:58 AM Total Procedure Duration Time 0 hours 8 minutes 16 seconds Findings: Hemorrhoids were found on perianal exam. The digital rectal exam findings include enlarged prostate. Multiple diverticula were found in the sigmoid colon and descending colon. There was evidence of a prior end-to-end ileo-colonic anastomosis at the hepatic flexure. This was patent and was characterized by healthy appearing mucosa. The exam was otherwise without abnormality. Impression: - Hemorrhoids found on perianal exam. - Enlarged prostate found on digital rectal exam. - Diverticulosis in the sigmoid colon and in the descending colon. - Patent end-to-end ileo-colonic anastomosis, characterized by healthy appearing mucosa. - The examination was otherwise normal. - No specimens collected. Recommendation: - Discharge patient to home. - Resume previous diet. - Continue present medications. - Repeat colonoscopy in 10 years for screening purposes. Procedure Code(s): --- Professional --- 60820, Colonoscopy, flexible; diagnostic, including collection of specimen(s) by brushing or washing, when performed (separate procedure) Diagnosis Code(s): --- Professional --- Z12.11, Encounter for screening for malignant neoplasm of colon K64.9, Unspecified hemorrhoids Z98.0, Intestinal bypass and anastomosis status K57.30, Diverticulosis of large intestine without perforation or abscess without bleeding N40.0, Benign prostatic hyperplasia without lower urinary tract symptoms CPT copyright 2017 [employer]. All rights reserved. The codes documented in this report are preliminary and upon microwave remote sensing scientist review may be revised to meet current compliance requirements. Duane Cummings MD 08/24/2018 8:30:35 AM This report has been signed electronically. Number of Addenda: 0 Note Initiated On: 08/24/2018 8:09 AM 08/24/18829 Date Duane Cummings MD [facility] Signature: Date (if indicated) CC: Tania Jackson MD; Duane Cummings MD Date Dictated: 08/24/18808 Date Transcribed: Mechanical Handyman: JOSE Signed PULMONARY FUNCTION Observed: 08/21/2018 Status: F Source: [place] REPORT COMP 6:44 AM [facility] Pulmonary Services/Neurology [facility] [place] [address] [place] [address] MR#: [id number] Acct: [id number] Name: IMANI MINER Rep #: [id number] : 1940 77 From: Jese Osorio MD Referring Dr: Lydia Brown [facility] Status: REG CLI Ordering Dr: Date: Location: [facility] Sex: M C COMPLETE PULMONARY FUNCTION TEST INTERPRETATION Brief HPI: Patient is a 77 year old male, currently under the care of Lydia Brown, who presents to [facility] for complete pulmonary function tests secondary to diagnosis of dyspnea. Respiratory therapist reports good effort and reproducible results. Interpretation: Forced expiration spirometry shows no large airways obstructive ventilatory defect with an FEV1 of 106% predicted. There is a significant bronchodilator response in FVC by strict ATS criteria. Spirograms are of good quality and plateau slowly, indicating slowly emptying areas of the lungs. The respiratory flow volume loop shows a normal pattern. Lung volumes by body plethysmography show a normal total lung capacity at 6.25 L, 105% predicted. All other lung volumes are within normal limits. Diffusion capacity by carbon monoxide is elevated at 158% predicted. The airway resistance is normal. No previous pulmonary function tests were available for review. Impression: These pulmonary function tests are grossly within normal limits. Increase in FVC with bronchodilators may be secondary to prolonged exhalation time. 08/21/18 0644 <Electronically signed by Jese Osorio MD> Date Jese Osorio MD CC: Jese Osorio MD; Lydia Brown; Tania Jackson MD Date Dictated: 08/20/181410 Date Transcribed: 08/20/181410 Mechanical Handyman: LISA Signed INTERNAL MEDICINE Observed: 08/07/2018 Status: F Source: [facility] OFFICE VISIT 8:18 AM [facility] [address] [place] [address] OFFICE VISIT Date of Service: 08/03/18 MR#: [id number] Acct: [id number] Name: IMANI MINER Rep #: [id number] : 1940 Provider: Huber Solano NP Age/Sex: 77/M Location: [facility] Status: Signed Intake Vital Signs08/03/18 Height 5 ft 8 in Intake Visit Reasons: 3 MO FU, BP AND WELL CK Chief Complaint: 3 month f/u Is patient in pain?: No Allergies amoxicillin [From Augmentin] Adverse Reaction (Intermediate, Verified 08/06/18 14:01) Nausea/Vom/Diarrhea clavulanic acid [From Augmentin] Adverse Reaction (Intermediate, Verified 08/06/18 14:01) Nausea/Vom/Diarrhea lisinopril Adverse Reaction (Intermediate, Verified 08/06/18 14:01) cough atorvastatin [From Lipitor] Adverse Reaction (Verified 08/06/18 14:01) Pain in joints gemfibrozil [From Lopid] Adverse Reaction (Verified 08/06/18 14:01) Pain in joints niacin Adverse Reaction (Verified 08/06/18 14:01) Other Medications Aspirin [Aspirin, Baby] 81 mg PO DAILY@0800 03/20/14 [History Confirmed 08/06/18] Finasteride [Proscar] 5 mg PO QHS 03/20/14 [History Confirmed 08/06/18] Magnesium 500 mg PO DAILY 03/20/14 [History Confirmed 08/06/18] Multivitamins,Therapeutic [Multivitamin] 1 tab PO DAILY 03/20/14 [History Confirmed 08/06/18] Allergy Shot IM QWEEK 08/13/16 [History Confirmed 08/06/18] Bilberry 100 mg PO DAILY 08/13/16 [History Confirmed 08/06/18] Calcium Carbonate [Calcium] 600 mg PO QHS 08/13/16 [History Confirmed 08/06/18] Cholecalciferol (VIT D3) [Vitamin D] 2,000 unit PO DAILY 08/13/16 [History Confirmed 08/06/18] Testosterone Cypionate [Depo-Testosterone] 100 mg IM QWEEK 08/13/16 [History Confirmed 08/06/18] Ubidecarenone [Co Q-10] 30 mg PO DAILY 08/13/16 [History Confirmed 08/06/18] gabapentin 300 mg capsule 300 mg PO Q8H #270 cap 09/09/17 [Rx Confirmed 08/06/18] levothyroxine 112 mcg tablet 112 mcg PO QDAY #90 tab 09/09/17 [Rx Confirmed 08/06/18] losartan 100 mg tablet 100 mg PO QDAY #90 tab 09/09/17 [Rx Confirmed 08/06/18] omeprazole 20 mg capsule,delayed release 20 mg PO ONCE 09/09/17 [History Confirmed 08/06/18] psyllium seed (sugar) oral powder 1 tbsp PO ONCE 09/09/17 [History Confirmed 08/06/18] hydrochlorothiazide 25 mg tablet 25 mg PO QDAY #90 tab 09/24/17 [Rx Confirmed 08/06/18] rosuvastatin 5 mg tablet 5 mg PO QDAY 02/02/18 [History Confirmed 08/06/18] labetalol 200 mg tablet 200 mg PO BID #180 tab 04/27/18 [Rx Confirmed 08/06/18] budesonide-formoterol HFA 160 mcg-4.5 mcg/actuation aerosol inhaler 2 puff INHALATION BID 05/21/18 [History Confirmed 08/06/18] amlodipine 2.5 mg tablet 2.5 mg PO DAILY 06/08/18 [History Confirmed 08/06/18] cyanocobalamin (vit B-12) 500 mcg tablet 250 mcg PO DAILY@0800 tab 06/08/18 [History Confirmed 08/06/18] sertraline 25 mg tablet 25 mg PO DAILY #30 tab 07/14/18 [Rx Confirmed 08/06/18] [facility] Medical History Screening for intestinal cancer (Acute) Hearing loss (Chronic) Nonrheumatic tricuspid (valve) insufficiency (Chronic) Hypothyroidism (Chronic) Atherosclerotic heart disease of [place] coronary artery without angina pectoris (Chronic) Malaise and fatigue (Acute) Hypertension (Chronic) Hypertension (Chronic) Gastroesophageal reflux disease (Chronic) Hyperlipidemia (Chronic) Arthritis (Acute) Hay fever (Acute) Shoulder pain (Acute) Crohns disease (Chronic) Surgical History History of left heart catheterization (Chronic 03/21/14) eye lesion removal (Acute) H/O hemorrhoidectomy (Resolved) H/O vasectomy (Resolved) History of prostate surgery (Resolved) Hx of appendectomy (Resolved) Family History Grandfather CVA (cerebral vascular accident) Depression Brother COPD (chronic obstructive pulmonary disease) Grandmother Depression Son Arthritis Father Arthritis CAD (coronary artery disease) Mother Hypertension Hyperlipidemia Pacemaker Other Cancer Social History household members: spouse housing: house current occupational status: retired pets and animals: No Smoking Status: Never smoker second hand exposure: No alcohol intake: never substance use type: does not use what type of physical activity do you participate in: walking frequency: 5-6 times per week HPI HPI Chief Complaint: 3 month f/u Details: IMANI MINER, is a 77 M who presents to the office today for an acute visit for cough and nasal drainage. Patient has a past medical history as listed above. Patient's most concerning complaint today is sore throat, nasal drainage and cough that have been going on for 2 days. Drainage and sputum are clear and the patient does notice some postnasal drip that triggers his cough. The patient states he is attempted to use nasal rinses and these have been ineffective. He denies fever, chills or wheezing. He denies any sick contacts and denies any other aggravating or relieving factors. The patient also notes that he has been doing better on his antidepressant. He states that his depression is well controlled denies any thoughts of self-harm or harming others. The patient otherwise denies any fever, chills, nausea, vomiting, shortness of breath, chest pain or pressure, palpitations, orthopnea, lower extremity edema, syncope or presyncopal episodes. ROS Const Constitutional: No weight change, body ache, chills, fatigue, sleep problems, fever(s), change in appetite, snoring, weakness, frequent falls, headache(s) or excessive sweating Eyes Eyes: No change in vision, eye pain, light sensitivity or blurry vision ENT ENT: Positive for nasal congestion, sore throat (mild), hearing loss and nasal discharge; no headache(s), abnormal hearing, ear pain, tinnitus or neck pain Resp Respiratory: Positive for cough Cough: Yes productive; no snoring, shortness of breath or wheezing Cardio Cardiology: No excessive sweating, chest pain at rest, chest pain with exertion, shortness of breath, dyspnea on exertion, palpitations, orthopnea or lightheadedness Gastro GI: No abdominal pain, change in bowel habits, constipation, diarrhea, vomiting, nausea/dyspepsia or cramping Genitourinary Male: No painful urination, urinary incontinence, urinary frequency, urinary urgency, blood in urine, testicle pain or other Musc Musculoskeletal: No neck pain, abnormal walking, joint pain, back pain, limited range of motion, numbness, tingling or muscle weakness Skin Skin: No redness, dry skin, itching, lesions, wounds or rash Neuro Neurology: Positive for dizziness; no weakness, frequent falls, headache(s), abnormal hearing, abnormal walking, numbness, tingling, abnormal speech or memory loss Psych Psychiatric: No change in appetite, No memory loss, Positive for anxiety (increased), No depression, No Thoughts of harming yourself/Others Endo Endocrine: No fatigue, excessive sweating, cold intolerance, increased thirst/drinking, heat intolerance, flushing or increased hunger Aller/Imm Allergy/Immunologic: No wheezing, itchy eyes, hives or seasonal allergy symptoms Cl/Lymp Hematologic/Lymphatic: No easy bleeding, easy bruising or enlarged lymph nodes Exam Const General: cooperative, comfortable, no acute distress Nutritional Appearance: average body habitus, well nourished Orientation: alert, oriented x3 Limitations: mental status not altered [facility] Head: normal to inspection Ears: hearing grossly normal bilaterally, TM abnormal with fluid behind the TM bilaterally Nose: external nose normal, mucous membranes and turbinates abnormal erythematous Face and sinus: normal facial exam, no sinus tenderness Mouth: oral mucosae normal Teeth and gingiva: dentition normal Throat: postnasal drainage Eyes General: appearance normal, both eyes and all related structures Resp Effort AND Inspection: normal respiratory effort, able to speak in complete sentences, normal respiratory pattern, symmetric chest movement, no audible wheezes, no cough Auscultation: Bilateral: Clear to Auscultation Cardio Palpation: normal PMI Rate: regular rate Heart Sounds: S1 normal, S2 normal, normal S1 and S2, no click, no gallops, no murmurs, no rubs Musc Musculoskeletal: No joint tenderness, decreased ROM or muscle weakness Skin General: no rashes or lesions noted, elasticity normal, turgor normal Lesions: no lesions Rashes: no rashes Neuro General: alert, awake, oriented x3, CN's II-XI intact bilaterally Speech: speech normal Gait: normal gait Motor: muscle tone normal throughout Extrem General: normal to inspection, normal gait, no edema, no pedal edema Psych Appearance: grossly normal Mental Status: mental status grossly normal Affect: normal affect Attitude: cooperative Thought Process: normal Assessment AND Plan 1. URI (upper respiratory infection) J06.9 Plan Patient symptoms are most likely viral at this time. 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 Patient also encouraged to drink plenty of fluids and get rest. Patient educated on signs and symptoms that would warrant emergency medical care. If symptoms progress or worsen, instructed to call our office, patient does note that azithromycin has worked for him in the past and he is tolerant to this antibiotic if needed. 2. Depression F32.9 Plan Patient states depression is well controlled on current medications. Patient educated on signs and symptoms that would warrant emergency medical care. This note was generated with [employer] dictation software. It may contain incorrect words, spelling, and punctuation that were not noted in checking the note before signing. Plan Detail Follow Up As previously scheduled or sooner Coding Level of Care Code Off vis,est,level 3 Diagnoses URI (upper respiratory infection) J06.9 Depression F32.9 08/07/18 0818 <Electronically signed by Huber HAQ> Date Huber [facility] Cosigner Signature: Date (if applicable) CC: SURGERY VISIT REPORT Observed: 08/06/2018 Status: F Source: [place] 2:39 PM [facility] 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 Is patient in pain?: No Allergies amoxicillin [From Augmentin] Adverse Reaction (Intermediate, Verified 08/06/18 14:01) Nausea/Vom/Diarrhea clavulanic acid [From Augmentin] Adverse Reaction (Intermediate, Verified 08/06/18 14:01) Nausea/Vom/Diarrhea lisinopril Adverse Reaction (Intermediate, Verified 08/06/18 14:01) cough atorvastatin [From Lipitor] Adverse Reaction (Verified 08/06/18 14:01) Pain in joints gemfibrozil [From Lopid] Adverse Reaction (Verified 08/06/18 14:01) Pain in joints niacin Adverse Reaction (Verified 08/06/18 14:01) Other Medications Aspirin [Aspirin, Baby] 81 mg PO DAILY@0800 03/20/14 [History Confirmed 08/06/18] Finasteride [Proscar] 5 mg PO QHS 03/20/14 [History Confirmed 08/06/18] Magnesium 500 mg PO DAILY 03/20/14 [History Confirmed 08/06/18] Multivitamins,Therapeutic [Multivitamin] 1 tab PO DAILY 03/20/14 [History Confirmed 08/06/18] Allergy Shot IM QWEEK 08/13/16 [History Confirmed 08/06/18] Bilberry 100 mg PO DAILY 08/13/16 [History Confirmed 08/06/18] Calcium Carbonate [Calcium] 600 mg PO QHS 08/13/16 [History Confirmed 08/06/18] Cholecalciferol (VIT D3) [Vitamin D] 2,000 unit PO DAILY 08/13/16 [History Confirmed 08/06/18] Testosterone Cypionate [Depo-Testosterone] 100 mg IM QWEEK 08/13/16 [History Confirmed 08/06/18] Ubidecarenone [Co Q-10] 30 mg PO DAILY 08/13/16 [History Confirmed 08/06/18] gabapentin 300 mg capsule 300 mg PO Q8H #270 cap 09/09/17 [Rx Confirmed 08/06/18] levothyroxine 112 mcg tablet 112 mcg PO QDAY #90 tab 09/09/17 [Rx Confirmed 08/06/18] losartan 100 mg tablet 100 mg PO QDAY #90 tab 09/09/17 [Rx Confirmed 08/06/18] omeprazole 20 mg capsule,delayed release 20 mg PO ONCE 09/09/17 [History Confirmed 08/06/18] psyllium seed (sugar) oral powder 1 tbsp PO ONCE 09/09/17 [History Confirmed 08/06/18] hydrochlorothiazide 25 mg tablet 25 mg PO QDAY #90 tab 09/24/17 [Rx Confirmed 08/06/18] rosuvastatin 5 mg tablet 5 mg PO QDAY 02/02/18 [History Confirmed 08/06/18] labetalol 200 mg tablet 200 mg PO BID #180 tab 04/27/18 [Rx Confirmed 08/06/18] budesonide-formoterol HFA 160 mcg-4.5 mcg/actuation aerosol inhaler 2 puff INHALATION BID 05/21/18 [History Confirmed 08/06/18] amlodipine 2.5 mg tablet 2.5 mg PO DAILY 06/08/18 [History Confirmed 08/06/18] cyanocobalamin (vit B-12) 500 mcg tablet 250 mcg PO DAILY@0800 tab 06/08/18 [History Confirmed 08/06/18] sertraline 25 mg tablet 25 mg PO DAILY #30 tab 07/14/18 [Rx Confirmed 08/06/18] [facility] Medical History Hearing loss (Chronic) Nonrheumatic tricuspid (valve) insufficiency (Chronic) Hypothyroidism (Chronic) Atherosclerotic heart disease of [place] coronary artery without angina pectoris (Chronic) Malaise and fatigue (Acute) Hypertension (Chronic) Hypertension (Chronic) Gastroesophageal reflux disease (Chronic) Hyperlipidemia (Chronic) Arthritis (Acute) Hay fever (Acute) Shoulder pain (Acute) Crohns disease (Chronic) Surgical History History of left heart catheterization (Chronic 03/21/14) eye lesion removal (Acute) H/O hemorrhoidectomy (Resolved) H/O vasectomy (Resolved) History of prostate surgery (Resolved) Hx of appendectomy (Resolved) Family History Grandfather CVA (cerebral vascular accident) Depression Brother COPD (chronic obstructive pulmonary disease) Grandmother Depression Son Arthritis Father Arthritis CAD (coronary artery disease) Mother Hypertension Hyperlipidemia Pacemaker Other Cancer Social History household members: spouse housing: house current occupational status: retired pets and animals: No Smoking Status: Never smoker second hand exposure: No alcohol intake: never substance use type: does not use what type of physical activity do you participate in: walking frequency: 5-6 times per week HPI HPI HPI: IMANI MINER, is a 77 M who presents to the office today for screening colonoscopy. He denies to me any acute problem. He notes that he has some hypertension. His new primary care physician is Dr. Jackson and the patient also has been referred to see Dr. Jose Eaton. The patient's had stress test. Sleep study and is now on CPAP. He also claims that he has progressive hearing loss and is being evaluated for a cochlear implant. I have previously assisted the patient in 1993 performed a right colectomy because of a appendiceal phlegmon. The patient's most recent colonoscopy was September 10, 2008. That was performed at that time because of left lower quadrant abdominal pain. Sigmoid diverticulosis without evidence of diverticulitis was identified. He had a patent ileocolonic anastomosis. He notes that over the past year and a half he has become quite sedentary. He knows that he is supposed to walk but cannot get motivated. He denies abdominal pain. ROS General General: Yes fatigue; no weight change, appetite, colon cancer, breast cancer or weakness HEENT HEENT: No difficulty swallowing, eye injury, eye surgery, swollen glands or hoarseness Endo Endocrine: Yes thyroid disease; no diabetes mellitus, thyroid cancer, Hair loss, heat intolerance or cold intolerance Skin Skin: Yes changing moles; no rash Breast Breast: No left breast lump, right breast lump, nipple discharge, breast pain, abnormal mammogram, abnormal US or breast enlargement Musc Musculoskeletal: Yes arthritis; no back problems, rheumatoid arthritis, gout or joint pain Cardio Cardiovascular: Yes high blood pressure; no murmur, pacemaker, heart disease, atrial fibrillation, heart attack, heart stent, palpitations, shortness of breat with exertion or chest pain Psych Psychiatric: No depression, anxiety or hearing voices Resp Respiratory: Yes cough, No shortness of breath, No sleep apnea, No COPD, No asthma, No emphysema, No wheezing Gastro Gastrointestinal: Yes acid reflux, No abdominal pain, No nausea or vomiting, No diarrhea, No constipation, No blood in stool, No hemorrhoids, No ulcers, No gallbladder problem, No black,tarry stools Cl Hematologic: No blood thinners, No blood disorders, No bleeding, No anemia, No blood clots Neuro Neurologic: No system reviewed and no additional complaints, except as docu, No as per HPI, No abnormal walking, No abnormal hearing, No abnormal movements, No abnormal speech, No behavioral changes, No burning sensations, No confusion, No seizure-like activity, No unsteadiness, No dizziness, No localized weakness, No frequent falls, No headache(s), No lack of coordination, No loss of vision, No memory loss, No numbness, No other visual disturbances, No radiating pain, No restless legs, No sensory deficit, No fainting, No tingling, No tremor(s), No weakness, No other Exam Const General: cooperative Nutritional Appearance: overweight Orientation: alert, awake, oriented x3 HENMT Head: normal to inspection Eyes General: appearance normal, both eyes and all related structures Chest Breast Palpation: No nipple discharge Resp Effort AND Inspection: normal respiratory effort Auscultation: clear to auscultation bilaterally Cardio Rate: regular rate Rhythm: regular rhythm Heart Sounds: no murmurs GI Other: Soft, nontender, well-healed transverse incision right lower quadrant, small reducible umbilical hernia, normal bowel sounds, Neuro General: alert, awake Extrem General: no clubbing, cyanosis or edema Psych Affect: normal affect Assessment AND Plan Problems 1. Screening for intestinal cancer Z12.10 Plan I have offered the patient a screening colonoscopy. I discussed the technique, benefits, risks, alternatives. He has had an opportunity to ask and have questions answered. With a newly diagnosed history of sleep apnea believe that it would be pertinent to proceed with monitored anesthesia care. The patient's previously been noted to have sigmoid diverticulosis and a tortuous sigmoid and descending colon. He has had an opportunity to ask and have questions answered. We will schedule and proceed at his discretion. I appreciate the ongoing opportunity of assisting with his surgical care. Cc: Lisandro Jackson and Angelito Cummings M.D., F.A.C.S. Coding Level of Care Code Off vis,new,level 1 Diagnoses Screening for intestinal cancer Z12.10 08/06/18 1439 <Electronically signed by Duane Cummings MD> Date Duane Cummings MD Cosigner Signature: Date (if applicable) CC: Kike Eaton MD; Tania Jackson MD PULMONARY VISIT REPORT Observed: 08/05/2018 Status: F Source: [place] 4:55 PM [facility] [address] [place] [address] OFFICE VISIT Date of Service: 08/04/18 MR#: [id number] Acct: [id number] Name: IMANI MINER Rep #: [id number] : 1940 Provider: Lydia Brown Age/Sex: 77/M [facility] Status: Signed Assessment AND Plan 1. EH (obstructive sleep apnea) G47.33 Plan New. Lengthy discussion about the pathophysiology of obstructive sleep apnea, the risks of untreated sleep apnea and the benefits of treatment. The patient conveys understanding and is agreeable to a titration study. Follow-up with Dr. Miner in 3 months, at which time anticipate the patient will be on therapy for at least 4-6 weeks. Contact the office with any difficulties acclimating to Pap therapy in the meantime. Did discuss initially the goal is to wear the device at least 4 hours nightly but ultimately the device should be worn any time spent sleeping (including naps). Orders Orders: Medications Discontinued: Pneumovax 23 (pneumococcal 23-cristy ps vaccine) Discontinue0.5 mL IM ONCE 0.5 mL 0RF NS d Reason: Office Medication has been Documented as given 2. Restless legs syndrome (RLS) G25.81 Plan We will hold off on treatment, plan to treat EH first if continues to have issues may treat RLS. 3. Dyspnea on exertion R06.09 Plan Patient has been diagnosed with asthma by PCP, yet has not had pulmonary function tests. Plan to further evaluate his shortness of breath on exertion and asthma beginning with a complete pulmonary function tests. The patient may require methacholine inhalation challenge if indicated. No change in maintenance medications at this point, Dr. Miner can evaluate this at the 3-month follow-up. Orders Orders: Plan Detail Other Orders Orders: Other Medications Discontinued: Pneumovax 23 (pneumococcal 23-cristy ps vaccine) Disconti0.5 mL IM ONCE 0.5 mL 0RF NS Z23 nued Reason: Office Medication has been Documented as gi juan Follow Up 3 Months (DMB) HPI Sleep concern: Details: This patient presents the office today for initial consultation regarding concern for swallowing. He is ambulatory and currently on room air. He is accompanied today by his . The patient reports that he has been noted to occasionally snore, he denies any gasping or waking up choking. He does take a daily 2-hour nap. He does not feel fatigued instantly upon arising in the morning but after about 2 hours of being awake he could go back to sleep. He does report occasional dry mouth in the morning. He denies any difficulty with headaches. Polysomnogram completed on July 19, 2018 does show an overall AHI of 11.7 events per hour, noted to be significantly higher in the REM stage of sleep at 60 events per hour. Also noted PLMS 48.5 events per hour. Impression is moderate to severe obstructive sleep apnea and a CPAP titration study was recommended. The patient denies any shortness of breath. He denies any cough, sputum production or hemoptysis. He denies any wheezing, chest tightness, chest pain or palpitations. He denies any fever, chills or body aches. 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 He is never had pulmonary function test done in the past. He has never been a smoker and has never been treated. He has had bronchitis occasionally throughout the years. He currently takes Symbicort daily. He does report rinsing his mouth out after each use and denies any medication side effects such as sore throat or thrush. He was told in the past that he has asthma. HPI Comments Details: Polysomnogram completed on July 19, 2018 interpreted as showing moderate obstructive sleep apnea but noted to be severe during the REM stage of sleep. The overall AHI was 11.7 events per hour, noted to be 60 events per hour in the REM stage of sleep and 11.7 events per hour in the supine position. A CPAP titration study was recommended. 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 Never a smoking, on symbicort for ??? 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 Accompanied by: Allergies amoxicillin [From Augmentin] Adverse Reaction (Intermediate, Verified 08/03/18 13:14) Nausea/Vom/Diarrhea clavulanic acid [From Augmentin] Adverse Reaction (Intermediate, Verified 08/03/18 13:14) Nausea/Vom/Diarrhea lisinopril Adverse Reaction (Intermediate, Verified 06/08/18 13:00) cough atorvastatin [From Lipitor] Adverse Reaction (Verified 06/08/18 13:00) Pain in joints gemfibrozil [From Lopid] Adverse Reaction (Verified 06/08/18 13:00) Pain in joints niacin Adverse Reaction (Verified 06/08/18 13:00) Other Medications Aspirin [Aspirin, Baby] 81 mg PO DAILY@0800 03/20/14 [History Confirmed 06/08/18] Finasteride [Proscar] 5 mg PO QHS 03/20/14 [History Confirmed 06/08/18] Magnesium 500 mg PO DAILY 03/20/14 [History Confirmed 06/08/18] Multivitamins,Therapeutic [Multivitamin] 1 tab PO DAILY 03/20/14 [History Confirmed 06/08/18] Allergy Shot IM QWEEK 08/13/16 [History Confirmed 06/08/18] Bilberry 100 mg PO DAILY 08/13/16 [History Confirmed 06/08/18] Calcium Carbonate [Calcium] 600 mg PO QHS 08/13/16 [History Confirmed 06/08/18] Cholecalciferol (VIT D3) [Vitamin D] 2,000 unit PO DAILY 08/13/16 [History Confirmed 06/08/18] Testosterone Cypionate [Depo-Testosterone] 100 mg IM QWEEK 08/13/16 [History Confirmed 06/08/18] Ubidecarenone [Co Q-10] 30 mg PO DAILY 08/13/16 [History Confirmed 06/08/18] gabapentin 300 mg capsule 300 mg PO Q8H #270 cap 09/09/17 [Rx Confirmed 06/08/18] levothyroxine 112 mcg tablet 112 mcg PO QDAY #90 tab 09/09/17 [Rx Confirmed 06/08/18] losartan 100 mg tablet 100 mg PO QDAY #90 tab 09/09/17 [Rx Confirmed 06/08/18] omeprazole 20 mg capsule,delayed release 20 mg PO ONCE 09/09/17 [History Confirmed 06/08/18] psyllium seed (sugar) oral powder 1 tbsp PO ONCE 09/09/17 [History Confirmed 06/08/18] hydrochlorothiazide 25 mg tablet 25 mg PO QDAY #90 tab 09/24/17 [Rx Confirmed 06/08/18] rosuvastatin 5 mg tablet 5 mg PO QDAY 02/02/18 [History Confirmed 06/08/18] labetalol 200 mg tablet 200 mg PO BID #180 tab 04/27/18 [Rx Confirmed 06/08/18] budesonide-formoterol HFA 160 mcg-4.5 mcg/actuation aerosol inhaler 2 puff INHALATION BID 05/21/18 [History Confirmed 05/21/18] amlodipine 2.5 mg tablet 2.5 mg PO DAILY 06/08/18 [History Confirmed 06/08/18] cyanocobalamin (vit B-12) 500 mcg tablet 250 mcg PO DAILY@0800 tab 06/08/18 [History Confirmed 06/08/18] sertraline 25 mg tablet 25 mg PO DAILY #30 tab 07/14/18 [Rx] [facility] Medical History Hearing loss (Chronic) Nonrheumatic tricuspid (valve) insufficiency (Chronic) Hypothyroidism (Chronic) Atherosclerotic heart disease of [place] coronary artery without angina pectoris (Chronic) Malaise and fatigue (Acute) Hypertension (Chronic) Hypertension (Chronic) Gastroesophageal reflux disease (Chronic) Hyperlipidemia (Chronic) Arthritis (Acute) Hay fever (Acute) Shoulder pain (Acute) Crohns disease (Chronic) Surgical History History of left heart catheterization (Chronic 03/21/14) eye lesion removal (Acute) H/O hemorrhoidectomy (Resolved) H/O vasectomy (Resolved) History of prostate surgery (Resolved) Hx of appendectomy (Resolved) Family History Grandfather CVA (cerebral vascular accident) Depression Brother COPD (chronic obstructive pulmonary disease) Grandmother Depression Son Arthritis Father Arthritis CAD (coronary artery disease) Mother Hypertension Hyperlipidemia Pacemaker Other Cancer Social History household members: spouse housing: house current occupational status: retired pets and animals: No Smoking Status: Never smoker second hand exposure: No alcohol intake: never substance use type: does not use what type of physical activity do you participate in: walking frequency: 5-6 times per week Review of Systems Const CONSTITUTIONAL: Positive fatigue; negative anorexia, body ache, chills, daytime sleepiness, fever(s), night sweats, oral thrush, stops breathing during sleep, weight loss, sleeping in chair, weight loss, weight gain, frequent colds, seasonal allergies, other, orthopnea or headache(s) EETM Ear Nose Throat Mouth: Positive hard of hearing; negative hearing normal, hoarseness, dry mouth in morning, change in vision, itchy eyes, eye pain, swallowing Difficulty, ear pain, nose bleed, headache(s), mouth pain, nasal congestion, nasal discharge, post nasal drip, sinus pain, sinus pressure, sore throat or other Cardio Cardiovascular: Negative chest pain, chest pain at rest, chest pain with activity, irregular heart rhythm, edema, shortness of breath when lying down, palpitations, murmur or other Resp Respiratory: Positive cough; negative as per HPI, shortness of breath, pain with cough, wheezing, chest congestion, chest tightness, pain on inspiration, inhalers, increase use of rescue inhalers, snoring, apnea or other Gastro Gastrointestional: Negative bloody stools, change in appetite, difficulty swallowing, reflux, hematemesis, melena stool, loose stool, constipation or other Genitourinary: Negative blood in urine, nocturia, pain with urination or other Musc Musculoskeletal: Negative body pain, back pain, neck pain or other Skin/Breast Skin/Breast: Negative dry skin, itching, rash, unusual bruising, breast lump or other Neuro Neurological: Negative restless legs, confusion, weakness or other Psych Psychocological: Negative abnormal sleep pattern, anxiety, thoughts of hurting self/others, hopelessness or other Lymph Lymphatic: Negative easy bleeding, easy bruising, swollen lymph nodes or other Exam Const Constitutional: Positive conversant, cooperative, in no acute respiratory distress, healthy appearing, well developed, well nourished and good hygiene Head Head: Positive normocephalic and atraumatic; negative cyanosis of lips/distal nose Eyes Eye: Positive clear conjunctiva; negative nystagmus or scleral abnormality Ears Ear: Positive hard of hearing and external ears normal; negative hearing normal Nose Nose: Positive external nose normal and no nasal discharge; negative epistaxis Mouth Mouth: Positive oral mucosae normal, no lesions and crowded posterior oropharynx; negative post nasal drip, malodorous breath or oral thrush present Mallampati Score: III: Mallampati Score Neck Neck: Positive normal visual inspection, full ROM and trachea midline; negative lymphadenopathy, JVD or tender Chest Wall Chest: Positive normal inspection of the chest and symmetric chest movement; negative increased A/P diameter Resp lung sounds: Positive clear to auscultation, good air exchange, normal expiratory time and normal respiratory effort; negative diminished, wheezes, rhonchi, rales, dullness to percussion or wheeze present on forced exhalation Cardio Cardiac: Positive regular rate, regular rhythm, S1 normal and S2 normal; negative murmur GI GI: Positive normal to inspection; negative distended Genitourinary: Positive deferred Musc Musculoskeletal: Positive steady gait and ROM normal; negative kyphosis or scoliosis Skin Pulmonary Skin Exam: Positive intact; negative rash Pulses Pulse: Yes pulses normal x4 extremities Extremities Extremities: Yes capillary refill normal, No clubbing, No cyanosis, No edema Neuro Neurologic: Yes conversant, Yes no focal neuro deficits, Yes normal concentration, Yes understands questions, Yes cooperative, Yes normal cognition, Yes normal coordination Lymph Lymphatic: No lymphadenopathy, No tenderness, No cervical adenopathy Psych Appearance: Positive grossly normal, eye contact and well kempt Mental Status: Positive mental status grossly normal Mood: Positive congruent mood Affect: Positive normal affect Immunizations Pneumovax 23 Performing Provider: EUN [place] Administered by: Florencia Fitzgerald on 08/04/18 14:48 Dose Route Admin Location Lot Number Expiration Date NDC Public Records Researcher 0.5 mL IM Left Deltoid [id number] 09/28/19 2635-6061-81 [employer] VIS Given Date VIS Publication Date 08/04/18 04/27/15 Eligibility Eligibility Date Coding Level of Care Code Off vis,new,level 4 Diagnoses EH (obstructive sleep apnea) G47.33 Restless legs syndrome (RLS) G25.81 Dyspnea on exertion R06.09 08/05/18 1655 <Electronically signed by Lydia HAQ> Date Lydia HAQ Cosigner Signature: Date (if applicable) CC: Tania Jackson MD RENAL ARTERY DUPLEX Observed: 06/24/2018 Status: F Source: [place] 6:26 PM [facility] Cardiovascular Services [address] [place] [address] Renal Artery Duplex Ultrasound 06/24/18 0755 MR#: [id number] Acct: [id number] Name: IMANI MINER Rep #: [id number] : 1940 77 From: Duane Cummings MD Attending Dr: Kike Eaton MD Status: REG CLI Ordering Dr: Kike Eaton MD Date: 06/24/18 Location: [facility] Sex: M C Admitted: Reason For Study: Uncontrolled hypertension Right Renal Artery Left Renal Artery Right renal artery ostium 101/21.9 Left renal artery ostium 149/30.3 RSV/EDV. PSV/EDV. Right renal artery proximal Left renal artery proximal PSV/EDV 89.4/16.4 PSV/EDV. 150/32.8 . Right renal artery mid 85.7/24.6 Left renal artery mid 140/27.4 PSV/EDV. PSV/EDV . Right renal artery distal 70.3/12.8 Left renal artery distal 82.1/24.6 PSV/EDV. PSV/EDV. Right RAR 1.30. Left RAR 1.94. Right Renal Parenchyma Left Renal Parenchyma Upper Pole Medula 25.7/7.94 Left upper pole medulla 44.2/10.9 PSV/EDV. PSV/EDV . Right upper pole medulla EDR 0.31 . Left upper pole medulla EDR 0.25 . Right upper pole medulla R.I. Left upper pole medulla R.I. 0.75 . 0.69 . UP Cortex 20.5/6.11 PSV/EDV. Upper Jose Cortx 22.6/6.72 PSV/EDV. Left upper pole cortex EDR 0.30 . Right upper pole cortex EDR 0.30 . Left upper pole cortex R.I. 0.70 . Right upper pole cortex R.I. 0.70 . Left lower Pole medulla 36.1/10.1 Right lower Pole medulla 23.5/7.64 PSV/EDV . PSV/EDV . Left lower pole medulla EDR 0.28 . Right lower pole medulla EDR 0.33 . Left lower pole medulla R.I. 0.72 . Right lower pole medulla R.I. Lower Pole Cortx 20.5/7.64 PSV/EDV. 0.68 . Left lower pole cortex EDR 0.37 . Lower Pole Cortex 16.5/5.5 PSV/EDV. Left lower pole cortex R.I. 0.63 . Right lower pole cortex EDR 0.33 . Left Renal Hilar Right lower pole cortex R.I. 0.67 . LT Hilar avg 28.4/7.94 PSV/EDV . Right Renal Hilar Left hilar acceleration time 51 Right Hilar avg 45.5/15.3 PSV/EDV. m/sec. Right hilar acceleration time 59 Left Renal Dimensions m/sec. Left kidney size 10.1 cm . Right Renal Dimensions Left cortical dimension 1.4 cm . Right kidney size 10.2 cm . Cyst noted measuring 5.32 x 4.97 Right cortical dimension 1.58 cm . cm. Aorta Proximal abdominal aorta 1.59 x 1.63 cm . Proximal abdominal aorta peak systolic velocity is 77.5 cm/sec . Distal abdominal aorta 1.43 x 1.43 cm . Distal abdominal aorta peak systolic velocity is 110 cm/sec . Interpretation Summary <60% stenosis bilateral renal arteries Normal resistivity indices suggesting appropriate renal parenchymal function. Maintained right renal length 10.2cm and left renal length 10.1cm Suspect left renal cyst 5.32 x 4.97cm--clinical correlation would be appropriate. Ordering Physician: Kike Eaton Referring Physician: Tania Jackson Performed By: Emily Murrell RVT and Student 06/24/181824 Date Duane Cummings MD CC: Kike Eaton MD; Tania Jackson MD Date Dictated: 06/24/18 0755 Date Transcribed: 06/24/181824 Mechanical Handyman: Signed STRESS TEST ECHO W/O Observed: 06/24/2018 Status: F Source: [place] [facility] 3:05 PM [facility] Cardiovascular Services [address] [place] [address] Stress Test Echo w/o Contrast MR#: [id number] Acct: [id number] Name: IMANI MINER Rep #: [id number] : 1940 77 From: Kike Eaton MD Primary Care: Tania Jackson MD Status: REG CLI Ordering Dr: Kike Eaton MD Sex: M C Reason For Study: CAD, Fatigue Stress Results Protocol: Jese Protocol Maximum Predicted HR: 144 bpm Target HR: 122 bpm% Max imum Predicted HR: 91 % DurationHeart Rate Stage (mm:ss) (bpm) BPCom ment Baseline 72 150/82 No Chest Pain Jese Protocol Stage I 3:00 11 5 162/74No Chest Pain Jese Protocol Stage II 2:00 13 1 170/76No Chest Pain; Moderate Right Hip Pain Recovery 85 148/80 No Chest Pain Stress Duration: 5:00 mm:ss Maximum Stress HR: 131 bpmM ETS: 7 Baseline Echocardiogram Findings The estimated ejection fraction is 65 %. Stress Echo Wall motion Data Resting WMIntermediate WMStress WM Resting Wall Motion Wall Motion Stress No regional wall motion No regional wall motion abnormalities noted. abnormalities noted. EKG Data The baseline ECG displays normal sinus rhythm. The patient exercised according to the regular Jese protocol for a total duration of 5:00. The maximum heart rate attained was 131 beats per minute. This was 90% of maximum predicted heart rate. The patient exercised into stage 2 of the Jese protocol. During stress, there were no ST or T wave changes noted to suggest ischemia. No clinical angina was noted. Interpretation Summary The estimated ejection fraction is 65 %. Normal, adequate, treadmill echocardiogram. Negative for ischemia by EKG and echocardiographic criteria. No anginal symptoms noted. Rare PVC and PACs noted. Appropriate blood pressure response to exercise. Below average exercise capacity for age. Final LVEF of 75%. Test terminated due to hip pain. No complications. Ordering Physician: Kike Eaton Referring Physician: Kike Eaton Performed By: Olman Pereira RCS 06/24/18 1504 Date Kike Eaton MD CC: Kike Eaton MD; Tania Jackson MD Date Dictated: 06/24/18911 Date Transcribed: 06/24/18 150 Mechanical Handyman: Signed CARDIOLOGY VISIT Observed: 06/08/2018 Status: F Source: [place] RE[place] 1:37 PM [facility] [address] [place] [address] OFFICE VISIT Date of Service: 06/08/18 MR#: [id number] Acct: [id number] Name: IMANI MINER Rep #: [id number] : 1940 Provider: Kike Eaton MD Age/Sex: 77/M Location: [facility] Status: Signed HPI HPI Chief Complaint: Dyspnea on exertion, fatigue, HTN, CAD Details: IMANI MINER, is a 77 M who presents to the office today for establishment of cardiac care, hypertension, known coronary disease, hypercholesterolemia. Specifically the patient was referred to our office by Dr. Fe Rosario for assistance with hypertension. On further history he is a former patient Dr. Dunn seeing him last in 2013. At that time he had undergone a heart catheterization on 03/21/14 which demonstrated mild nonobstructive disease of his left main, LAD, left circumflex and RCA. His EF was 65% at that time. He has never had any interventions. He is a nondiabetic, lifelong smoker, lifelong nondrinker, but does have hypertriglyceridemia currently on statin based medicines. His father of an UT at age 60, and his mother had a pacemaker. His brother recently this past weekend from COPD and has a sister with known coronary disease who is also my patient. On further history the patient states that he has had progressively worsening fatigue and tiredness over the last 3 months with decreased exercise capacity. He used to be able to cut his whole grass in one sitting, and now has to do it in 2 phases over last summer. He is also had a headache for the last 3 days and has a history of migraines in the past. He denies any chest pain, angina but does complain of excessive daytime somnolence and sometimes takes naps both in the morning and in the evening. He had a sleep study about 10 years ago. Patient has shown me his log of blood pressures which range between 100s and 130 systolic, and ironically feels better when his blood pressure is in the low 100s. In our office today's blood pressure is 120/60, with a pulse of 68 and regular. Physical exam demonstrates clear lungs bilaterally, regular rate and rhythm, normal S1/S2, no S3 or S4. No edema noted. EKG dated 01/03/17 showed normal sinus rhythm, left anterior hemiblock, no evidence of previous myocardial infarction. EKG today, 06/08/18 shows normal sinus rhythm, left anterior hemiblock, no evidence of previous myocardial infarction per his lipids as of 09/23/17 showed LDL of 58 and HDL of 36. Intake Vital Signs06/08/18 Height 5 ft 8 in 06/08/18 Weight: 189 lb 06/08/18 Body Mass Index (BMI) 28.7 06/08/18 Blood Pressure 120/60 Intake Visit Reasons: HTN, PREV PFM 2013 Assistant Printer Floor Covering Required: No Accompanied by: Is patient in pain?: No Allergies lisinopril Adverse Reaction (Intermediate, Verified 06/08/18 13:00) cough atorvastatin [From Lipitor] Adverse Reaction (Verified 06/08/18 13:00) Pain in joints gemfibrozil [From Lopid] Adverse Reaction (Verified 06/08/18 13:00) Pain in joints niacin Adverse Reaction (Verified 06/08/18 13:00) Other Medications Aspirin [Aspirin, Baby] 81 mg PO DAILY@0800 03/20/14 [History Confirmed 06/08/18] Finasteride [Proscar] 5 mg PO QHS 03/20/14 [History Confirmed 06/08/18] Magnesium 500 mg PO DAILY 03/20/14 [History Confirmed 06/08/18] Multivitamins,Therapeutic [Multivitamin] 1 tab PO DAILY 03/20/14 [History Confirmed 06/08/18] Allergy Shot IM QWEEK 08/13/16 [History Confirmed 06/08/18] Bilberry 100 mg PO DAILY 08/13/16 [History Confirmed 06/08/18] Calcium Carbonate [Calcium] 600 mg PO QHS 08/13/16 [History Confirmed 06/08/18] Cholecalciferol (VIT D3) [Vitamin D] 2,000 unit PO DAILY 08/13/16 [History Confirmed 06/08/18] Testosterone Cypionate [Depo-Testosterone] 100 mg IM QWEEK 08/13/16 [History Confirmed 06/08/18] Ubidecarenone [Co Q-10] 30 mg PO DAILY 08/13/16 [History Confirmed 06/08/18] gabapentin 300 mg capsule 300 mg PO Q8H #270 cap 09/09/17 [Rx Confirmed 06/08/18] levothyroxine 112 mcg tablet 112 mcg PO QDAY #90 tab 09/09/17 [Rx Confirmed 06/08/18] losartan 100 mg tablet 100 mg PO QDAY #90 tab 09/09/17 [Rx Confirmed 06/08/18] omeprazole 20 mg capsule,delayed release 20 mg PO ONCE 09/09/17 [History Confirmed 06/08/18] psyllium seed (sugar) oral powder 1 tbsp PO ONCE 09/09/17 [History Confirmed 06/08/18] hydrochlorothiazide 25 mg tablet 25 mg PO QDAY #90 tab 09/24/17 [Rx Confirmed 06/08/18] rosuvastatin 5 mg tablet 5 mg PO QDAY 02/02/18 [History Confirmed 06/08/18] labetalol 200 mg tablet 200 mg PO BID #180 tab 04/27/18 [Rx Confirmed 06/08/18] budesonide-formoterol HFA 160 mcg-4.5 mcg/actuation aerosol inhaler 2 puff INHALATION BID 05/21/18 [History Confirmed 05/21/18] sertraline 25 mg tablet 25 mg PO DAILY #30 tab 05/21/18 [Rx Confirmed 06/08/18] amlodipine 2.5 mg tablet 2.5 mg PO DAILY 06/08/18 [History Confirmed 06/08/18] cyanocobalamin (vit B-12) 500 mcg tablet 250 mcg PO DAILY@0800 tab 06/08/18 [History Confirmed 06/08/18] [facility] Medical History Nonrheumatic tricuspid (valve) insufficiency (Chronic) Hypothyroidism (Chronic) Atherosclerotic heart disease of [place] coronary artery without angina pectoris (Chronic) Malaise and fatigue (Acute) Hypertension (Chronic) Hypertension (Chronic) Gastroesophageal reflux disease (Chronic) Hyperlipidemia (Chronic) Arthritis (Acute) Hay fever (Acute) Shoulder pain (Acute) Surgical History History of left heart catheterization (Chronic 03/21/14) H/O hemorrhoidectomy (Acute) History of prostate surgery (Acute) Hx of appendectomy (Acute) eye lesion removal (Acute) Family History Grandfather CVA (cerebral vascular accident) Depression Brother COPD (chronic obstructive pulmonary disease) Grandmother Depression Son Arthritis Father Arthritis CAD (coronary artery disease) Mother Hypertension Hyperlipidemia Pacemaker Other Cancer Social History Smoking Status: Never smoker alcohol intake: never substance use type: does not use what type of physical activity do you participate in: walking frequency: 5-6 times per week ROS Const Const: Positive for fatigue and other (Has had headache for 4 days, right adventist and top of head. Severe fatigue); negative for weakness, body ache, fever(s), headache(s), chills, frequent falls, night sweats, daytime sleepiness, difficulty sleeping, excessive sweating, weight gain, weight loss, increased appetite, poor appetite or anorexia Eyes Eyes: Negative for blind spots, loss of peripheral vision, transient loss of vision, blurry vision, change in vision, double vision, floaters, tunnel vision or other ENT ENT: Negative for dizziness, hearing loss, tinnitus, Nosebleed/epistaxis, balance problems, post nasal drip, lip swelling, tongue swelling, bleeding gums, hoarseness, neck pain, dry mouth, other or headache(s) Cardio Chest Pain: No Palpitations: No Edema: None Muscle aches with walking: None Resp Respiratory: Negative for SOB with activity, SOB at rest, SOB orthopnea\SOB lying down, Cough, Coughing up blood/hemoptysis, chest congestion, pain on inspiration, snoring, stridor, wheezing, crackles, paroxysmal nocturnal dyspnea or other GI GI: Negative nausea, vomiting, heartburn, constipation, belching, bloating, cramping, vomiting blood/hematemesis, bright, red blood in stools, black,tarry stools, loose stools, Difficulty Swallowing or other : Negative for hematuria, frequent nighttime urination/ nocturia, erectile dysfunction or abnormal vaginal bleeding Musc Musc: Negative for balance problems, muscle aches/ myalgia, muscle weakness or joint pain Skin Skin: Negative redness, non-healing lesions, rash, unusual bruising, skin ulcer, wounds, jaundice or other Neuro Neuro: Positive for other (restless legs, on gabapentin); negative for blurry vision, double vision, dizziness, lightheadedness, near syncope, syncope, orthostatic symptoms, confusion, memory loss, restless legs, vertigo, seizures, lack of coordination, weakness, headache(s) or frequent falls Cl Hematologic/Lymphatic: Negative for easy bleeding, easy bruising, enlarged lymph nodes or other Endo Endo: Positive for fatigue; negative for cold intolerance, heat intolerance, flushing, increased thirst/drinking, increased hunger, hair loss, hair growth, other or excessive sweating Psych Psych: Negative for anxiety, depression, thoughts of harming anyone, thoughts of harming yourself, visual hallucinations, panic attacks or audible hallucinations Allergy Allergy/Immunology: Negative for lip swelling, Negative for tongue swelling, Negative for rash, Negative for throat swelling, Negative for hives Cardiology Exam Const Appearance: cooperative, healthy appearing and no acute distress Nutritional Appearance: well nourished Orientation: alert, oriented x3 and oriented to person Head Head: normal to inspection, atraumatic and normocephalic Nose: external nose normal Face and Sinus: face symmetric Mouth: oral mucosae normal Eyes General: appearance normal, both eyes and all related structures Eyelids: eyelids normal Conjunctivae: conjunctivae normal Pupils: PERRL and normal by confrontation EOM: EOM intact bilaterally Neck Neck: normal visual inspection and full ROM Carotids: normal carotid upstroke Chest Chest inspection: normal inspection of the chest Auscultation: Bilateral: Clear to Auscultation Cardio Palpation: normal PMI Rate: regular rate Rhythm: regular rhythm Heart sounds: S1 normal and S2 normal GI GI: normal to inspection, no hepatosplenomegaly and bowel sounds present Neuro General: alert, oriented x3, awake, CN's II-XI intact bilaterally and moves all extremities Skin Skin: no rashes or lesions noted Extremities Pulses: Normal: Right Femoral Pulse, Left Femoral Pulse, Right Dorsalis Pedis Pulse, Left Dorsalis Pedis Pulse, Right Posterior Tibial Pulse, Left Posterior Tibial Pulse, Right Radial Pulse, Left Radial Pulse Lower Extremity Edema: None: Bilateral Psych Psychological: normal affect Assessment AND Plan 1. Atherosclerotic heart disease of [place] coronary artery without angina pectoris I25.10 Nonobstructive CAD, <25% in septal platform consultant and ramus, per Dr. Dunn @ [facility] Plan 1. Coronary artery disease: The patient has known nonobstructive coronary disease by catheterization 2013. Patient has had progressively worsening fatigue, shortness of breath, and decreased energy level over the last 3 months. I recommended that he undergo a repeat treadmill echocardiogram to determine if he has any areas of ischemia as well as his blood pressure response to exercise. His most recent echocardiogram on 11/26/16 showed normal LV size and function with an EF of 65%, mild tricuspid regurgitation and an RVSP of 35 mmHg. Orders Orders: 2. Hyperlipidemia E78.5 Plan 2. Hyperlipidemia: His LDL and HDL cholesterol are fairly well-controlled. Continue Zocor. Orders Orders: 3. Hypertension I10 Plan 3. Hypertension: Patient's blood pressure is actually fairly well-controlled on current polypharmacy. Would recommend obtaining a renal ultrasound to confirm/deny the presence of significant renal artery stenosis although his high dose of losartan would point away from a renal source of his hypertension. Recommend he continue his amlodipine, baby aspirin, labetalol, hydrochlorothiazide and losartan. Orders Orders: 4. Somnolence, daytime R40.0 Plan 4. Daytime somnolence: The patient has signs and symptoms of possible obstructive sleep apnea with associated hypertension refractory to polypharmacy, daytime somnolence, and daily headaches. Recommend obtaining a sleep study going forward. 5. Return office in 6 months. This note was generated using a voice recognition system and there may be incorrect words, spelling or punctuation that were not noted when reviewing the office note prior to saving. Orders Orders: Plan Detail Follow Up +6M (Angelito) Coding Level of Care Code Off vis,new,level 4 Diagnoses Atherosclerotic heart disease of [place] coronary artery without angina pectoris I25.10 Hyperlipidemia E78.5 Hypertension I10 Somnolence, daytime R40.0 Coding Level of Care Code Off vis,new,level 4 Diagnoses Atherosclerotic heart disease of [place] coronary artery without angina pectoris I25.10 Hyperlipidemia E78.5 Hypertension I10 Somnolence, daytime R40.0 06/08/18 1337 <Electronically signed by Kike Eaton MD> Date Kike Eaton MD Cosigner Signature: Date (if applicable) CC: Tania Jackson MD 12 LEAD EKG PERFORMED Observed: 06/08/2018 Status: F Source: [facility] 1:27 PM [facility] [address] [place] [address] 12 Lead EKG performed by [facility] 06/08/18 1326 MR#: [id number] Acct: [id number] Name: IMANI MINER Rep #: [id number] : 1940 77 From: Kike Eaton MD Attending Dr: Kike Eaton MD Status: DEP [facility] Ordering Dr: Kike Eaton MD Date: 06/08/18 Location: [facility] Sex: M C Admitted: [facility]/12 Lead EKG performed by [facility] ECG Report Interpretation Sinus Rhythm -Left axis -anterior fascicular block. ABNORMAL Electronically signed on 09/03/2018 at 15:03 by Kike Eaton Software Version [id number] 09/03/18 1506 Date Kike Eaton MD CC: Tania Jackson MD Date Dictated: 06/08/181325 Date Transcribed: 06/08/181325 Mechanical Handyman: Signed INTERNAL MEDICINE Observed: 05/25/2018 Status: F Source: [place] OFFICE VISIT 8:49 AM [facility] [address] [place] [address] OFFICE VISIT Date of Service: 05/21/18 MR#: [id number] Acct: [id number] Name: IMANI MINER Rep #: [id number] : 1940 Provider: Huber Solano NP Age/Sex: 77/M Location: [facility] Status: Signed Intake Vital Signs05/21/18 Height 5 ft 8 in 05/21/18 Weight: 191 lb 05/21/18 Body Mass Index (BMI) 29.0 05/21/18 Blood Pressure 118/70 05/21/18 Blood Pressure Location Lt brachial 05/21/18 Blood Pressure Position Sitting Intake Visit Reasons: possible side effects from med Chief Complaint: chest pain and anxiety Is patient in pain?: No Allergies atorvastatin [From Lipitor] Adverse Reaction (Verified 04/27/18 13:35) Pain in joints gemfibrozil [From Lopid] Adverse Reaction (Verified 04/27/18 13:35) Pain in joints niacin Adverse Reaction (Verified 04/27/18 13:35) Other Medications Aspirin [Aspirin, Baby] 81 mg PO DAILY@79903/20/14 [History Confirmed 04/27/18] Cyanocobalamin [Vitamin B12] 2,500 mcg PO DAILY@79903/20/14 [History Confirmed 04/27/18] Finasteride [Proscar] 5 mg PO QHS 03/20/14 [History Confirmed 04/27/18] Magnesium 500 mg PO DAILY 03/20/14 [History Confirmed 04/27/18] Multivitamins,Therapeutic [Multivitamin] 1 tab PO DAILY 03/20/14 [History Confirmed 04/27/18] Allergy Shot IM QWEEK 08/13/16 [History Confirmed 04/27/18] Bilberry 100 mg PO DAILY 08/13/16 [History Confirmed 04/27/18] Calcium Carbonate [Calcium] 600 mg PO QHS 08/13/16 [History Confirmed 04/27/18] Cholecalciferol (VIT D3) [Vitamin D] 2,000 unit PO DAILY 08/13/16 [History Confirmed 04/27/18] Testosterone Cypionate [Depo-Testosterone] 100 mg IM QWEEK 08/13/16 [History Confirmed 04/27/18] Ubidecarenone [Co Q-10] 30 mg PO DAILY 08/13/16 [History Confirmed 04/27/18] gabapentin 300 mg capsule 300 mg PO Q8H #270 cap 09/09/17 [Rx Confirmed 04/27/18] levothyroxine 112 mcg tablet 112 mcg PO QDAY #90 tab 09/09/17 [Rx Confirmed 04/27/18] losartan 100 mg tablet 100 mg PO QDAY #90 tab 09/09/17 [Rx Confirmed 04/27/18] omeprazole 20 mg capsule,delayed release 20 mg PO ONCE 09/09/17 [History Confirmed 04/27/18] psyllium seed (sugar) oral powder 1 tbsp PO ONCE 09/09/17 [History Confirmed 04/27/18] hydrochlorothiazide 25 mg tablet 25 mg PO QDAY #90 tab 09/24/17 [Rx Confirmed 04/27/18] rosuvastatin 5 mg tablet 5 mg PO QDAY 02/02/18 [History Confirmed 04/27/18] amlodipine 5 mg tablet 2.5 mg PO QDAY tab 04/27/18 [History] labetalol 200 mg tablet 200 mg PO BID #180 tab 04/27/18 [Rx Confirmed 04/27/18] budesonide-formoterol HFA 160 mcg-4.5 mcg/actuation aerosol inhaler 2 puff INHALATION BID 05/21/18 [History Confirmed 05/21/18] sertraline 25 mg tablet 25 mg PO DAILY #30 tab 05/21/18 [Rx Confirmed 05/21/18] [facility] Medical History Arthritis (Acute) Hay fever (Acute) Shoulder pain (Acute) Thyroid disease (Acute) Hypertension (Chronic) Surgical History H/O hemorrhoidectomy (Acute) History of prostate surgery (Acute) Hx of appendectomy (Acute) eye lesion removal (Acute) Family History Grandfather CVA (cerebral vascular accident) Depression Brother COPD (chronic obstructive pulmonary disease) Grandmother Depression Son Arthritis Father Arthritis Other Cancer Hypertension Social History Smoking Status: Never smoker alcohol intake: never substance use type: does not use what type of physical activity do you participate in: walking frequency: 5-6 times per week HPI HPI Chief Complaint: chest pain and anxiety Details: IMANI MINER, is a 77 M who presents to the office today for chest pain and anxiety. His past medical history as listed above. Patient stated for the last couple of weeks he was having occasional muscle tightness around his chest to back area, but it resolves with Tylenol. He denies any injury or heavy lifting. He describes the pain as intermittent, achy pain and at 3/10. He states that he can reproduce the pain by pressing on his B/L ribs. He also stated that his noticed increased anxiety for the last couple weeks which he agrees and stated he was on sertraline in the past which resolved his anxiety. Originally was discontinued by his previous PCP per request of patient because he wanted to decrease the number of medications he was taking. Patient denies any thoughts of feelings of harming self or others. The patient otherwise denies any fever, chills, nausea, vomiting, shortness of breath, palpitations, orthopnea, lower extremity edema, syncope or presyncopal episodes. ROS Const Constitutional: Positive for fatigue; no weight change, body ache, chills, sleep problems, fever(s), change in appetite, snoring, weakness, frequent falls, headache(s) or excessive sweating Eyes Eyes: No change in vision, eye pain, light sensitivity or blurry vision ENT ENT: No headache(s), abnormal hearing, ear pain, tinnitus, nasal congestion, sore throat or neck pain Resp Respiratory: No snoring, cough, shortness of breath or wheezing Cardio Cardiology: Positive for chest pain at rest (occassional ache); no excessive sweating, chest pain with exertion, shortness of breath, dyspnea on exertion, palpitations, orthopnea or lightheadedness Gastro GI: No abdominal pain, change in bowel habits, constipation, diarrhea, vomiting, nausea/dyspepsia or cramping Genitourinary Male: No painful urination, urinary incontinence, urinary frequency, urinary urgency, blood in urine, testicle pain or other Musc Musculoskeletal: Positive for stiffness; no neck pain, abnormal walking, joint pain, back pain, limited range of motion, numbness, tingling, muscle cramps or muscle weakness Skin Skin: No redness, dry skin, itching, lesions, wounds or rash Neuro Neurology: No weakness, frequent falls, headache(s), abnormal hearing, abnormal walking, numbness, tingling, abnormal speech, dizziness, memory loss or behavioral changes Psych Psychiatric: No change in appetite, No memory loss, Positive for anxiety, No depression, No Thoughts of harming yourself/Others, No irritability, No behavioral changes Endo Endocrine: Positive for fatigue; no excessive sweating, cold intolerance, increased thirst/drinking, heat intolerance, flushing or increased hunger Aller/Imm Allergy/Immunologic: No wheezing, itchy eyes, hives or seasonal allergy symptoms Cl/Lymp Hematologic/Lymphatic: No easy bleeding, easy bruising or enlarged lymph nodes Exam Const General: cooperative, comfortable, no acute distress Nutritional Appearance: average body habitus, well nourished Orientation: alert, oriented x3 Limitations: mental status not altered [facility] Head: normal to inspection Ears: hearing grossly normal bilaterally Nose: external nose normal Eyes General: appearance normal, both eyes and all related structures Chest Chest palpation AND inspection: normal inspection of the chest, normal palpation of entire chest wall, tenderness rib (bilateral upper mid clavicular line) Resp Effort AND Inspection: normal respiratory effort, able to speak in complete sentences, normal respiratory pattern, symmetric chest movement, no audible wheezes, no cough Auscultation: Bilateral: Clear to Auscultation Cardio Palpation: normal PMI Rate: regular rate Heart Sounds: S1 normal, S2 normal, normal S1 and S2, no click, no gallops, no murmurs, no rubs GI Inspection: normal to inspection Auscultation: normal bowel sounds, no hyperactive bowel sounds, no hypoactive bowel sounds Palpation: soft, no hepatosplenomegaly Musc Musculoskeletal: No joint tenderness, decreased ROM or muscle weakness Skin General: no rashes or lesions noted, elasticity normal, turgor normal Lesions: no lesions Rashes: no rashes Neuro General: alert, awake, oriented x3, CN's II-XI intact bilaterally Speech: speech normal Gait: normal gait Motor: muscle tone normal throughout Extrem General: normal to inspection, normal gait, no edema, no pedal edema Psych Appearance: grossly normal Mental Status: mental status grossly normal Mood: anxious mood Affect: anxious affect Speech and Movement: speech and movement normal Attitude: cooperative Thought Process: normal Thought Content: normal Assessment AND Plan 1. Rib pain R07.81 Plan Tenderness noted upon palpation to bilateral mid upper clavicular line, pain is reducible. Low suspicion for cardiac etiology, seems musculoskeletal and recommended take [id number] analgesics as this provides moderate relief of his symptoms. Discussed red flag symptoms and when to seek urgent medical attention. Pt verbalized understanding. 2. Anxiety F41.9 Plan Patient stated he is having increased anxiety for the past couple of weeks and in the past has taken sertraline for this which was effective. Patient will be started on sertraline 25 mg daily at this time. Anxiety likely complicates his other medical conditions. Discussed side effects, red flag symptoms and when to seek urgent medical attention. Patient to follow-up in 1 month. Plan Detail Other Medications New: Discontinued: Follow Up 4-6 weeks or sooner if needed Coding Level of Care Code Off vis,est,level 3 Diagnoses Rib pain R07.81 Anxiety F41.9 05/25/18 0849 <Electronically signed by Huber HAQ> Date uHber HAQ Cosigner Signature: Date (if applicable) CC: INTERNAL MEDICINE Observed: 04/28/2018 Status: F Source: [facility] OFFICE VISIT 10:46 AM [facility] [place] [facility] [place] [place] [address] OFFICE VISIT Date of Service: 04/27/18 MR#: [id number] Acct: [id number] Name: IMANI MINER Asha Rep #: [id number] : 1940 Provider: Huber Solano NP Age/Sex: 77/M Location: [facility] Status: Signed Intake Vital Signs04/27/18 Height 5 ft 8 in 04/27/18 Weight: 191 lb 04/27/18 Body Mass Index (BMI) 29.0 04/27/18 Blood Pressure 115/67 Intake Visit Reasons: 4 week follow up Chief Complaint: 4 week FU - HTN Is patient in pain?: Yes (Rt shoulder) Pain scale (1-10): 5 Allergies atorvastatin [From Lipitor] Adverse Reaction (Verified 04/27/18 13:35) Pain in joints gemfibrozil [From Lopid] Adverse Reaction (Verified 04/27/18 13:35) Pain in joints niacin Adverse Reaction (Verified 04/27/18 13:35) Other Medications Aspirin [Aspirin, Baby] 81 mg PO DAILY@0800 03/20/14 [History Confirmed 04/27/18] Cyanocobalamin [Vitamin B12] 2,500 mcg PO DAILY@0800 03/20/14 [History Confirmed 04/27/18] Finasteride [Proscar] 5 mg PO QHS 03/20/14 [History Confirmed 04/27/18] Magnesium 500 mg PO DAILY 03/20/14 [History Confirmed 04/27/18] Multivitamins,Therapeutic [Multivitamin] 1 tab PO DAILY 03/20/14 [History Confirmed 04/27/18] Allergy Shot IM QWEEK 08/13/16 [History Confirmed 04/27/18] Bilberry 100 mg PO DAILY 08/13/16 [History Confirmed 04/27/18] Calcium Carbonate [Calcium] 600 mg PO QHS 08/13/16 [History Confirmed 04/27/18] Cholecalciferol (VIT D3) [Vitamin D] 2,000 unit PO DAILY 08/13/16 [History Confirmed 04/27/18] Testosterone Cypionate [Depo-Testosterone] 100 mg IM QWEEK 08/13/16 [History Confirmed 04/27/18] Ubidecarenone [Co Q-10] 30 mg PO DAILY 08/13/16 [History Confirmed 04/27/18] fluticasone 250 mcg-salmeterol 50 mcg/dose blistr powdr for inhalation 1 inh INHALATION ONCE 09/09/17 [History Confirmed 04/27/18] gabapentin 300 mg capsule 300 mg PO Q8H #270 cap 09/09/17 [Rx Confirmed 04/27/18] levothyroxine 112 mcg tablet 112 mcg PO QDAY #90 tab 09/09/17 [Rx Confirmed 04/27/18] losartan 100 mg tablet 100 mg PO QDAY #90 tab 09/09/17 [Rx Confirmed 04/27/18] omeprazole 20 mg capsule,delayed release 20 mg PO ONCE 09/09/17 [History Confirmed 04/27/18] psyllium seed (sugar) oral powder 1 tbsp PO ONCE 09/09/17 [History Confirmed 04/27/18] hydrochlorothiazide 25 mg tablet 25 mg PO QDAY #90 tab 09/24/17 [Rx Confirmed 04/27/18] rosuvastatin 5 mg tablet 5 mg PO QDAY 02/02/18 [History Confirmed 04/27/18] triamcinolone acetonide 0.1 % topical cream 1 applic TOPICAL BID 02/02/18 [History Confirmed 04/27/18] prednisone 20 mg tablet 20 mg PO QDAY #10 tab 02/05/18 [Rx Confirmed 04/27/18] amlodipine 5 mg tablet 2.5 mg PO QDAY tab 04/27/18 [History] labetalol 200 mg tablet 200 mg PO BID #180 tab 04/27/18 [Rx Confirmed 04/27/18] PFSH Medical History Arthritis (Acute) Hay fever (Acute) Shoulder pain (Acute) Thyroid disease (Acute) Hypertension (Chronic) Surgical History H/O hemorrhoidectomy (Acute) History of prostate surgery (Acute) Hx of appendectomy (Acute) eye lesion removal (Acute) Family History Grandfather CVA (cerebral vascular accident) Depression Brother COPD (chronic obstructive pulmonary disease) Grandmother Depression Son Arthritis Father Arthritis Other Cancer Hypertension Social History Smoking Status: Never smoker alcohol intake: never substance use type: does not use what type of physical activity do you participate in: walking frequency: 5-6 times per week HPI HPI Chief Complaint: 4 week FU - HTN Details: IMANI MINER, is a 77 M who presents to the office today for follow-up on hypertension his past medical history include BPH, GERD, hyperlipidemia, hypothyroidism, and RLS. Patient's blood pressure at this visit is 115/67 he brought in a record of his blood pressure that he 3 times a day at home. Average BPs 130s/60-70s. He does have intermittent complaints of blurred vision in the distance, but this is not new, his last eye exam was last May 2017 and he has an upcoming one in near future. He has a history of lower extremity edema ,which he stated has resolved after decreasing amlodipine. He denies headaches, lightheadedness, dizziness, fever, chills, nausea, vomiting, shortness of breath, chest pain or pressure, palpitations, orthopnea, lower extremity edema, syncope or presyncopal episodes. His malaise and fatigue has resolved as well ROS Const Constitutional: No chills, fatigue, fever(s), frequent falls, malaise, weakness, sleep problems or change in appetite Eyes Eyes: Positive for blurry vision; no change in vision, double vision, discharge or visual disturbances ENT ENT: No abnormal hearing, ear pain, ear pressure, tinnitus or dizziness/vertigo Resp Respiratory: No cough, shortness of breath or wheezing Cardio Cardiology: No chest pain at rest, chest pain with exertion, shortness of breath, dyspnea on exertion, generalized swelling, irregular heart rhythm, lightheadedness, orthopnea, fast heart rate or palpitations Gastro GI: No abdominal pain, change in bowel habits, constipation, diarrhea, nausea/dyspepsia or vomiting Genitourinary Male: No difficulty urinating, burning urination, painful urination, urinary incontinence, urinary frequency, urinary urgency, urinary hesitancy, urinary retention, blood in urine, Frequent nighttime urination/ nocturia, sexual problems, testicle lump or testicle pain Musc Musculoskeletal: Positive for joint pain (Left shoulder AND Rt Elbow); no back pain, joint swelling, limited range of motion, muscle weakness, numbness or tingling Skin Skin: No change in skin color, itching, rash or wounds Breast Breast: No breast lump or breast pain Neuro Neurology: No frequent falls, weakness, abnormal hearing, numbness, tingling, unsteady gait/balance, dizziness, loss of vision, memory loss or visual disturbances Psych Psychiatric: No memory loss, No anxiety, No change in appetite, No depression, No Thoughts of harming yourself/Others Endo Endocrine: No fatigue, heat intolerance, increased thirst/drinking, increased hunger or increased urination Aller/Imm Allergy/Immunologic: No wheezing, itchy eyes or seasonal allergy symptoms Cl/Lymp Hematologic/Lymphatic: No easy bleeding, easy bruising or enlarged lymph nodes Exam Const General: cooperative, comfortable, no acute distress Nutritional Appearance: average body habitus, well nourished Orientation: alert, oriented x3 Limitations: mental status not altered [facility] Head: normal to inspection, normocephalic, atraumatic Eyes General: appearance normal, both eyes and all related structures Visual Solomon: normal visual solomon by confrontation Alignment and Position: position normal, alignment normal Periorbital: periorbital findings normal Eyelids: eyelids normal Conjunctivae: conjunctivae normal Pupils: PERRL, normal by confrontation, accommodation normal Resp Effort AND Inspection: normal respiratory effort, able to speak in complete sentences, normal respiratory pattern, symmetric chest movement, no audible wheezes, no cough Auscultation: Bilateral: Clear to Auscultation Musc Musculoskeletal: No muscle weakness Extrem General: normal to inspection, normal gait, no edema, no pedal edema, no pedal edema, no clubbing, cyanosis or edema, full ROM Psych Appearance: grossly normal Mental Status: mental status grossly normal Affect: normal affect Attitude: cooperative Thought Process: normal Assessment AND Plan 1. HTN (hypertension) I10 Plan Hypertension: Controlled on current medications, will not make any adjustments at this time. Will continue with current medication regimen, risk factor reduction, and lifestyle modifications. Discussed dietary changes that should be considered which include reducing the amount of sodium intake. Discussed only checking BP one time per week. 2. Bilateral lower extremity edema R60.0 Plan resolved after decreasing the amlodipine to 2.5 mg daily. Is tolerating this new dose well. We will continue to monitor in the future. Also discussed decreasing salt intake and elevating his legs. Discussed red flag symptoms requiring urgent medical attention. Patient to follow-up in 3 months or sooner if needed. Dragon disc Plan Detail Other Medications Refilled: Follow Up Patient to follow-up as previously Coding Level of Care Code Off vis,est,level 3 Diagnoses HTN (hypertension) I10 Bilateral lower extremity edema R60.0 04/28/18 1046 <Electronically signed by Huber HAQ> Date Huber MAGALLANESC Cosigner Signature: Date (if applicable) CC: INTERNAL MEDICINE Observed: 04/23/2018 Status: F Source: [facility] OFFICE VISIT 1:32 PM [facility] [place] [facility] [address] [place] [address] [place] [address] OFFICE VISIT Date of Service: 04/20/18 MR#: [id number] Acct: [id number] Name: IMANI MINER Rep #: [id number] : 1940 Provider: Tania Jackson MD Age/Sex: 77/M Location: [facility] Status: Signed Intake Vital Signs04/20/18 Height 5 ft 8 in 04/20/18 Weight: 189 lb 04/20/18 Body Mass Index (BMI) 28.7 Intake Visit Reasons: acute illness for 5 days Chief Complaint: acute illness for 5 days Allergies atorvastatin [From Lipitor] Adverse Reaction (Verified 02/05/18 10:34) Pain in joints gemfibrozil [From Lopid] Adverse Reaction (Verified 02/05/18 10:34) Pain in joints niacin Adverse Reaction (Verified 02/05/18 10:34) Other Medications Aspirin [Aspirin, Baby] 81 mg PO DAILY@0800 03/20/14 [History Confirmed 02/05/18] Cyanocobalamin [Vitamin B12] 2,500 mcg PO DAILY@0800 03/20/14 [History Confirmed 02/05/18] Finasteride [Proscar] 5 mg PO QHS 03/20/14 [History Confirmed 02/05/18] Magnesium 500 mg PO DAILY 03/20/14 [History Confirmed 02/05/18] Multivitamins,Therapeutic [Multivitamin] 1 tab PO DAILY 03/20/14 [History Confirmed 02/05/18] Allergy Shot IM QWEEK 08/13/16 [History Confirmed 02/05/18] Bilberry 100 mg PO DAILY 08/13/16 [History Confirmed 02/05/18] Calcium Carbonate [Calcium] 600 mg PO QHS 08/13/16 [History Confirmed 02/05/18] Cholecalciferol (VIT D3) [Vitamin D] 2,000 unit PO DAILY 08/13/16 [History Confirmed 02/05/18] Testosterone Cypionate [Depo-Testosterone] 100 mg IM QWEEK 08/13/16 [History Confirmed 02/05/18] Ubidecarenone [Co Q-10] 30 mg PO DAILY 08/13/16 [History Confirmed 02/05/18] fluticasone 250 mcg-salmeterol 50 mcg/dose blistr powdr for inhalation 1 inh INHALATION ONCE 09/09/17 [History Confirmed 02/05/18] gabapentin 300 mg capsule 300 mg PO Q8H #270 cap 09/09/17 [Rx Confirmed 02/05/18] levothyroxine 112 mcg tablet 112 mcg PO QDAY #90 tab 09/09/17 [Rx Confirmed 02/05/18] losartan 100 mg tablet 100 mg PO QDAY #90 tab 09/09/17 [Rx Confirmed 02/05/18] omeprazole 20 mg capsule,delayed release 20 mg PO ONCE 09/09/17 [History Confirmed 02/05/18] psyllium seed (sugar) oral powder 1 tbsp PO ONCE 09/09/17 [History Confirmed 02/05/18] hydrochlorothiazide 25 mg tablet 25 mg PO QDAY #90 tab 09/24/17 [Rx Confirmed 02/05/18] labetalol 200 mg tablet 200 mg PO BID #180 tab 11/20/17 [Rx Confirmed 02/05/18] amlodipine 5 mg tablet 5 mg PO QDAY #90 tab 12/09/17 [Rx Confirmed 02/05/18] rosuvastatin 5 mg tablet 5 mg PO QDAY 02/02/18 [History Confirmed 02/05/18] triamcinolone acetonide 0.1 % topical cream 1 applic TOPICAL BID 02/02/18 [History Confirmed 02/05/18] prednisone 20 mg tablet 20 mg PO QDAY #10 tab 02/05/18 [Rx Confirmed 02/05/18] PFSH Medical History Arthritis (Acute) Hay fever (Acute) Shoulder pain (Acute) Thyroid disease (Acute) Hypertension (Chronic) Surgical History H/O hemorrhoidectomy (Acute) History of prostate surgery (Acute) Hx of appendectomy (Acute) eye lesion removal (Acute) Family History Grandfather CVA (cerebral vascular accident) Depression Brother COPD (chronic obstructive pulmonary disease) Grandmother Depression Son Arthritis Father Arthritis Other Cancer Hypertension Social History Smoking Status: Never smoker alcohol intake: never substance use type: does not use what type of physical activity do you participate in: walking frequency: 5-6 times per week HPI HPI Chief Complaint: acute illness for 5 days Details: IMANI MINER, is a 77yo M who presents to the office today due to concerns about feeling of unwell. Symptoms are said to have started about 5 days ago after he had been out mowing for longer than he typically does. He describes nausea, fatigue and occasional dizziness. There has been no loss of appetite change in bowel habit vomiting or recorded fever. He also describes chills and restless leg. He also reports uncontrollable crying. He denies any prior history of depression ROS Const Constitutional: Positive for chills, fatigue, weakness, headache(s) and excessive sweating; no weight change, body ache, sleep problems, fever(s), change in appetite, snoring or frequent falls Eyes Eyes: No change in vision, eye pain, light sensitivity or blurry vision ENT ENT: Positive for headache(s); no abnormal hearing, ear pain, tinnitus, nasal congestion, sore throat or neck pain Resp Respiratory: Positive for cough Cough: Yes non-productive; no snoring, shortness of breath or wheezing Cardio Cardiology: Positive for excessive sweating; no chest pain at rest, chest pain with exertion, shortness of breath, dyspnea on exertion, palpitations, orthopnea or lightheadedness Gastro GI: Positive for abdominal pain and nausea/dyspepsia; no change in bowel habits, constipation, diarrhea, vomiting or cramping Genitourinary Male: No painful urination, urinary incontinence, urinary frequency, urinary urgency, blood in urine, testicle pain or other Musc Musculoskeletal: No neck pain, abnormal walking, joint pain, back pain or limited range of motion Skin Skin: No redness, dry skin, itching, lesions, wounds or rash Neuro Neurology: Positive for weakness, headache(s) and dizziness; no frequent falls, abnormal hearing, abnormal walking, abnormal speech or memory loss Psych Psychiatric: No change in appetite, No memory loss, No anxiety, No depression, No Thoughts of harming yourself/Others Endo Endocrine: Positive for fatigue and excessive sweating; no cold intolerance, increased thirst/drinking, heat intolerance, flushing or increased hunger Aller/Imm Allergy/Immunologic: No wheezing, itchy eyes, hives or seasonal allergy symptoms Cl/Lymp Hematologic/Lymphatic: No easy bleeding, easy bruising or enlarged lymph nodes Exam Const General: cooperative, no acute distress Orientation: alert, awake, oriented x3 HENMT Head: atraumatic, normocephalic Ears: hearing grossly normal bilaterally Resp Effort AND Inspection: normal respiratory effort, able to speak in complete sentences Auscultation: Bilateral: Clear to Auscultation Cardio Rate: regular rate Rhythm: regular rhythm Heart Sounds: S1 normal, S2 normal GI Palpation: soft, no hepatosplenomegaly Neuro General: alert, awake, oriented x3, moves all extremities, CN's II-XI intact bilaterally Extrem General: no clubbing, cyanosis or edema Psych Appearance: grossly normal Affect: normal affect Assessment AND Plan 1. Malaise and fatigue R53.81; R53.83 Plan Precipitated after prone. Outside mowing. Otherwise no other focus of possible infection. ? Viral syndrome. Increase fluid intake and rest recommended. Advised to call or go to the ER if he notes worsening symptoms. Labs ordered Orders Orders: 2. Restless leg G25.81 Plan He describes what appears to be worsening restless leg symptoms. Iron studies ordered. Follow-up with results. This note was generated with [employer] dictation software. It may contain incorrect words, spelling, and punctuation that were not noted in checking the note before signing. Plan Detail Other Orders Orders: Coding Level of Care Code Off vis,est,level 4 Diagnoses Malaise and fatigue R53.81; R53.83 Restless leg G25.81 04/23/18 1332 <Electronically signed by Tania Jackson MD> Date Tania Jackson MD Cosigner Signature: Date (if applicable) CC: CBC W/DIFF, AUTOMATED Collected: 04/20/2018 Status: F Source: [facility] 12:41 PM [facility] [place] CODE TESTS RESULT OUT OF RANGE REFERENCE UNITS LAB L100.1000 4.4-11.0 K/mm3 Normal WBC 6.0 LAB L100.1200 4.6-6.2 M/mm3 Normal RBC 5.16 LAB L100.1300 13.0-16.5 g/dl Normal HGB 16.5 LAB L100.1400 40-54 % Normal HCT 47.0 LAB L100.1500 80-94 fL Normal MCV 91.1 LAB L100.1600 27.0-32.0 pg Normal MCH 32.0 LAB L100.1700 32-36 g/gl Normal MCHC 35.1 LAB L100.1810 11.6-14.6 % Normal RDW CV 11.9 LAB L100.1820 35.1-43.9 fl Normal RDW SD 39.3 LAB L100.1900 150-450 K/mm3 Normal PLT 310 LAB L100.2000 6.2-12.0 fl Normal MPV 8.8 LAB L100.2100 47-70 % High NEUT% 70.6 LAB L100.2200 19-41 % Low LY% 14.1 LAB L100.2300 0-10 % High MONO% 11.9 LAB L100.2400 0-5 % Normal EO% 3.0 LAB L100.2500 0-1 % Normal BASO% 0.2 LAB L100.2550 0.0-0.9 % Normal IM GRAN % 0.200 Result Comment: IG% - Immature Granulocytes (promyelocytes, myelocytes and metamyelocytes) > 1% indicates that a LEFT SHIFT is Present. LAB L100.2620 2.0-7.7 X10 3/uL Normal Absolute Neut 4.3 LAB L100.2720 0.83-4.51 X10 3/ul Normal Absolute Lymph 0.85 Performed By: #### L100.0100, L500.4050, L501.9520, L503.6096, L503.6150, L503.6550, L506.0400 #### [facility] [place] [address], [address] COMPREHENSIVE METABOLIC Collected: 04/20/2018 Status: F Source: [facility] [place] 12:41 PM [facility] [place] CODE TESTS RESULT OUT OF RANGE REFERENCE UNITS LAB L501.0100 74-106 mg/dL Normal GLU 101 Result Comment: Fasting Glucose result from 100 to 125 mg/dL suggests IMPAIRED HOMEOSTASIS per A.D.A. criteria. Please note revised GLUCOSE reference range effective 2017. LAB L501.1000 7-18 mg/dL High BUN 19 LAB L501.1100 0.70-1.30 mg/dL Normal CREAT,SERUM 1.17 Result Comment: The validity of the calculated GFR AND GFRAA in patients over 70 years has not been determined. Clinical correlation is essential. LAB L501.1110 >60 mL/min Normal EST GFR 64 Result Comment: Non- GFR Calc LAB L501.1115 >60 mL/min Normal EST GFR - AA 78 Result Comment: GFR Calc LAB L501.1300 10-20 RATIO Normal BUN/CRE 16.2 LAB L501.1500 6.4-8.2 g/dL T Normal PROT 7.0 LAB L501.1800 3.2-5.0 g/dL Normal ALB 3.7 LAB L501.1950 2.2-4.2 g/dL Normal GLOB 3.3 LAB L501.2000 0.9-2.4 RATIO Normal A/G 1.1 LAB L501.2200 8.5-10.1 mg/dL CA Normal 8.6 LAB L501.4100 15-37 U/L Normal AST 23 LAB L501.4305 45-117 U/L Normal ALK P 80 LAB L501.4405 16-61 U/L Normal ALT 30 LAB L501.4600 0.20-1.00 mg/dL High T BILI 1.30 LAB L501.5300 136-145 mmol/L Low NA 132 LAB L501.5600 3.5-5.1 mmol/L K Normal 4.5 LAB L501.5900 98-107 mmol/L Low CL 94 LAB L501.6100 21.0-32.0 mmol/L Normal CO2 29.0 LAB L501.6200 5-15 Normal GAP 9 Performed By: #### L100.0100, L500.4050, L501.9520, L503.6075, L503.6150, L503.6550, L506.0400 #### [facility] [address] [place], [place], [id number] THYROID STIM HORMONE Collected: 04/20/2018 Status: F Source: [facility] (TSH) 12:41 PM [facility] [place] TYPE CODE TESTS RESULT OUT OF RANGE REFERENCE UNITS LAB L501.9520 0.358-3.74 uIU/mL Normal TSH 0.47 Performed By: #### L100.0100, L500.4050, L501.9520, L503.6075, L503.6150, L503.6550, L506.0400 #### [facility] [address] [place], [place], [id number] IRON BINDING Collected: 04/20/2018 Status: F [facility] [place] TYPE CODE TESTS RESULT OUT OF RANGE REFERENCE UNITS LAB L503.6075 250-450 ug/dL Normal TIBC 394 Performed By: #### L100.0100, L500.4050, L501.9520, L503.6075, L503.6150, L503.6550, L506.0400 #### [facility] [address] [place], [place], [id number] IRON Collected: 04/20/2018 Status: F Source: [facility] 12:41 PM [facility] [place] TYPE CODE TESTS RESULT OUT OF RANGE REFERENCE UNITS LAB L503.6150 65-175 ug/dL Normal IRON 130 Performed By: #### L100.0100, L500.4050, L501.9520, L503.6075, L503.6150, L503.6550, L506.0400 #### [facility] [address] [place], [place], [id number] FERRITIN Collected: 04/20/2018 Status: F Source: [facility] 12:41 PM [facility] [place] TYPE CODE TESTS RESULT OUT OF RANGE REFERENCE UNITS LAB L503.6550 26-388 ng/mL Normal FERRITIN 74 Performed By: #### L100.0100, L500.4050, L501.9520, L503.6075, L503.6150, L503.6550, L506.0400 #### [facility] [address] [place], [address] T4 FREE DIRECT Collected: 04/20/2018 Status: F Source: [place] 12:41 PM [facility] [place] CODE TESTS RESULT OUT OF RANGE REFERENCE UNITS LAB L506.0400 0.76-1.46 ng/dL Normal T4 FREE 1.30 DIRECT Performed By: #### L100.0100, L500.4050, L501.9520, L503.6075, L503.6150, L503.6550, L506.0400 #### [facility] [address] [place], [address] INTERNAL MEDICINE Observed: 03/30/2018 Status: F Source: [place] OFFICE VISIT 4:57 PM [facility] [place] [facility] [address] [place] [address] [place] [address] OFFICE VISIT Date of Service: 03/30/18 MR#: [id number] Acct: [id number] Name: IMANI MINER Rep #: [id number] : 1940 Provider: Huber Solano NP Age/Sex: 77/M Location: [facility] Status: Signed Intake Vital Signs03/30/18 Height 5 ft 8 in Intake Visit Reasons: low BP readings, weakness Chief Complaint: BP concerns Is patient in pain?: Yes (lower leg pain, more so at night) Pain scale (1-10): 7 Allergies atorvastatin [From Lipitor] Adverse Reaction (Verified 02/05/18 10:34) Pain in joints gemfibrozil [From Lopid] Adverse Reaction (Verified 02/05/18 10:34) Pain in joints niacin Adverse Reaction (Verified 02/05/18 10:34) Other Medications Aspirin [Aspirin, Baby] 81 mg PO DAILY@0800 06/30/14 [History Confirmed 02/05/18] Cyanocobalamin [Vitamin B12] 2,500 mcg PO DAILY@0800 03/20/14 [History Confirmed 02/05/18] Finasteride [Proscar] 5 mg PO QHS 03/20/14 [History Confirmed 02/05/18] Magnesium 500 mg PO DAILY 03/20/14 [History Confirmed 02/05/18] Multivitamins,Therapeutic [Multivitamin] 1 tab PO DAILY 03/20/14 [History Confirmed 02/05/18] Allergy Shot IM QWEEK 08/13/16 [History Confirmed 02/05/18] Bilberry 100 mg PO DAILY 08/13/16 [History Confirmed 02/05/18] Calcium Carbonate [Calcium] 600 mg PO QHS 08/13/16 [History Confirmed 02/05/18] Cholecalciferol (VIT D3) [Vitamin D] 2,000 unit PO DAILY 08/13/16 [History Confirmed 02/05/18] Testosterone Cypionate [Depo-Testosterone] 100 mg IM QWEEK 08/13/16 [History Confirmed 02/05/18] Ubidecarenone [Co Q-10] 30 mg PO DAILY 08/13/16 [History Confirmed 02/05/18] fluticasone 250 mcg-salmeterol 50 mcg/dose blistr powdr for inhalation 1 inh INHALATION ONCE 09/09/17 [History Confirmed 02/05/18] gabapentin 300 mg capsule 300 mg PO Q8H #270 cap 09/09/17 [Rx Confirmed 02/05/18] levothyroxine 112 mcg tablet 112 mcg PO QDAY #90 tab 09/09/17 [Rx Confirmed 02/05/18] losartan 100 mg tablet 100 mg PO QDAY #90 tab 09/09/17 [Rx Confirmed 02/05/18] omeprazole 20 mg capsule,delayed release 20 mg PO ONCE 09/09/17 [History Confirmed 02/05/18] psyllium seed (sugar) oral powder 1 tbsp PO ONCE 09/09/17 [History Confirmed 02/05/18] hydrochlorothiazide 25 mg tablet 25 mg PO QDAY #90 tab 09/24/17 [Rx Confirmed 02/05/18] labetalol 200 mg tablet 200 mg PO BID #180 tab 11/20/17 [Rx Confirmed 02/05/18] amlodipine 5 mg tablet 5 mg PO QDAY #90 tab 12/09/17 [Rx Confirmed 02/05/18] rosuvastatin 5 mg tablet 5 mg PO QDAY 02/02/18 [History Confirmed 02/05/18] triamcinolone acetonide 0.1 % topical cream 1 applic TOPICAL BID 02/02/18 [History Confirmed 02/05/18] prednisone 20 mg tablet 20 mg PO QDAY #10 tab 02/05/18 [Rx Confirmed 02/05/18] PFSH Medical History Arthritis (Acute) Hay fever (Acute) Shoulder pain (Acute) Thyroid disease (Acute) Hypertension (Chronic) Surgical History H/O hemorrhoidectomy (Acute) History of prostate surgery (Acute) Hx of appendectomy (Acute) eye lesion removal (Acute) Family History Grandfather CVA (cerebral vascular accident) Depression Brother COPD (chronic obstructive pulmonary disease) Grandmother Depression Son Arthritis Father Arthritis Other Cancer Hypertension Social History Smoking Status: Never smoker alcohol intake: never substance use type: does not use what type of physical activity do you participate in: walking frequency: 5-6 times per week HPI HPI Chief Complaint: BP concerns Details: IMANI MINER, is a 77 M who presents to the office today for concerns related to blood pressure blood pressure medications. The patient has a past medical history as listed above. Patient states that he has been dealing with a rash to his bilateral lower extremities on and off for the last several months. He has been put on prednisone a couple times, which resolved the rash for a short period of time but the rash would always reappear. He also states that recently he has noticed swelling and tenderness in his bilateral lower extremities. There is no rash present at todays OV. Patient frequently checks his blood pressure at home. Some low blood pressure readings, 106/62, 113/66, 111/62, noted on his home blood pressure log. Patient states that he becomes symptomatic when his blood pressures dropped this low and he feels best at 130s/85. The patient otherwise denies any fever, chills, nausea, vomiting, shortness of breath, chest pain or pressure, palpitations, orthopnea, lower extremity edema, syncope or presyncopal episodes. ROS Const Constitutional: Positive for weakness; no weight change, body ache, chills, fatigue, sleep problems, fever(s), change in appetite, snoring, frequent falls or headache(s) Eyes Eyes: No change in vision, eye pain, light sensitivity or blurry vision ENT ENT: No headache(s), abnormal hearing, ear pain, tinnitus, nasal congestion, sore throat or neck pain Resp Respiratory: No snoring, cough, shortness of breath or wheezing Cardio Cardiology: Positive for generalized swelling (lower legs); no chest pain at rest, chest pain with exertion, shortness of breath, dyspnea on exertion, palpitations, orthopnea or lightheadedness Gastro GI: No abdominal pain, change in bowel habits, constipation, diarrhea, vomiting, nausea/dyspepsia or cramping Genitourinary Male: No painful urination, urinary incontinence, urinary frequency, urinary urgency, blood in urine, testicle pain or other Musc Musculoskeletal: Positive for numbness, tingling and other (lower leg pain); no neck pain, abnormal walking, joint pain, back pain or limited range of motion Skin Skin: No redness, dry skin, itching, lesions, wounds or rash Neuro Neurology: Positive for weakness, numbness and tingling; no frequent falls, headache(s), abnormal hearing, abnormal walking, abnormal speech, dizziness or memory loss Psych Psychiatric: No change in appetite, No memory loss, No anxiety, No depression, No Thoughts of harming yourself/Others Endo Endocrine: No fatigue, cold intolerance, increased thirst/drinking, heat intolerance, flushing or increased hunger Aller/Imm Allergy/Immunologic: No wheezing, itchy eyes, hives or seasonal allergy symptoms Cl/Lymp Hematologic/Lymphatic: No easy bleeding, easy bruising or enlarged lymph nodes Exam Const General: cooperative, comfortable, no acute distress Nutritional Appearance: average body habitus, well nourished Orientation: alert, oriented x3 Limitations: mental status not altered Eyes General: appearance normal, both eyes and all related structures Resp Effort AND Inspection: normal respiratory effort, able to speak in complete sentences, normal respiratory pattern, symmetric chest movement, no audible wheezes, no cough Auscultation: Bilateral: Clear to Auscultation Cardio Palpation: normal PMI Rate: regular rate Heart Sounds: S1 normal, S2 normal, normal S1 and S2, no click, no gallops, no murmurs, no rubs Pulses: dorsalis pedis pulses present Skin General: no rashes or lesions noted, elasticity normal, turgor normal Lesions: no lesions Rashes: no rashes Neuro General: alert, awake, oriented x3, CN's II-XI intact bilaterally Speech: speech normal Gait: normal gait Motor: muscle tone normal throughout Extrem General: normal to inspection, normal gait, edema Laterality: bilateral (lower ext.) Severity: pitting and 1+, no pedal edema Psych Appearance: grossly normal Mental Status: mental status grossly normal Affect: normal affect Attitude: cooperative Thought Process: normal Assessment AND Plan 1. Bilateral lower extremity edema R60.0 Plan edema and tenderness to bilateral lower extremities possibly due to amlodipine. Will decrease dose to 2.5 mg daily. 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 Patient educated to elevate lower extremities. 2. HTN (hypertension) I10 Plan Patient has had a few low blood pressure readings. Amlodipine dose decreased to 2.5 mg daily due to edema. Patient encouraged to continue monitoring blood pressures at home. Patient instructed to drop off blood pressure log for the next 2 weeks. If blood pressure remains low we will consider discontinuing amlodipine. Discussed red flag signs and symptoms that would warrant emergency medical care. This note was generated with [employer] dictation software. It may contain incorrect words, spelling, and punctuation that were not noted in checking the note before signing. Plan Detail Follow Up 4 Weeks Coding Level of Care Code Off vis,est,level 3 Diagnoses Bilateral lower extremity edema R60.0 HTN (hypertension) I10 03/30/18 3577 <Electronically signed by Huber HAQ> Date Huber HAQ Cosigner Signature: Date (if applicable) CC: INTERNAL MEDICINE Observed: 02/05/2018 Status: F Source: [place] OFFICE VISIT 1:42 PM [facility] [address] [place] [address] [place] [address] OFFICE VISIT Date of Service: 02/05/18 MR#: [id number] Acct: [id number] Name: IMANI MINER Rep #: [id number] : 1940 Provider: Tania Jackson MD Age/Sex: 77/M Location: [facility] Status: Signed Intake Vital Signs02/05/18 Height 5 ft 8 in 02/05/18 Weight: 192 lb 02/05/18 Body Mass Index (BMI) 29.2 02/05/18 Blood Pressure 134/76 Intake Visit Reasons: WORSENING RASH ON LEGS Chief Complaint: Rash worse on ankles Allergies atorvastatin [From Lipitor] Adverse Reaction (Verified 02/05/18 10:34) Pain in joints gemfibrozil [From Lopid] Adverse Reaction (Verified 02/05/18 10:34) Pain in joints niacin Adverse Reaction (Verified 02/05/18 10:34) Other Medications Aspirin [Aspirin, Baby] 81 mg PO DAILY@0800 03/20/14 [History Confirmed 02/05/18] Cyanocobalamin [Vitamin B12] 2,500 mcg PO DAILY@0800 03/20/14 [History Confirmed 02/05/18] Finasteride [Proscar] 5 mg PO QHS 03/20/14 [History Confirmed 02/05/18] Magnesium 500 mg PO DAILY 03/20/14 [History Confirmed 02/05/18] Multivitamins,Therapeutic [Multivitamin] 1 tab PO DAILY 03/20/14 [History Confirmed 02/05/18] Allergy Shot IM QWEEK 08/13/16 [History Confirmed 02/05/18] Bilberry 100 mg PO DAILY 08/13/16 [History Confirmed 02/05/18] Calcium Carbonate [Calcium] 600 mg PO QHS 08/13/16 [History Confirmed 02/05/18] Cholecalciferol (VIT D3) [Vitamin D] 2,000 unit PO DAILY 08/13/16 [History Confirmed 02/05/18] Testosterone Cypionate [Depo-Testosterone] 100 mg IM QWEEK 08/13/16 [History Confirmed 02/05/18] Ubidecarenone [Co Q-10] 30 mg PO DAILY 08/13/16 [History Confirmed 02/05/18] fluticasone 250 mcg-salmeterol 50 mcg/dose blistr powdr for inhalation 1 inh INHALATION ONCE 09/09/17 [History Confirmed 02/05/18] gabapentin 300 mg capsule 300 mg PO Q8H #270 cap 09/09/17 [Rx Confirmed 02/05/18] levothyroxine 112 mcg tablet 112 mcg PO QDAY #90 tab 09/09/17 [Rx Confirmed 02/05/18] losartan 100 mg tablet 100 mg PO QDAY #90 tab 09/09/17 [Rx Confirmed 02/05/18] omeprazole 20 mg capsule,delayed release 20 mg PO ONCE 09/09/17 [History Confirmed 02/05/18] psyllium seed (sugar) oral powder 1 tbsp PO ONCE 09/09/17 [History Confirmed 02/05/18] hydrochlorothiazide 25 mg tablet 25 mg PO QDAY #90 tab 09/24/17 [Rx Confirmed 02/05/18] labetalol 200 mg tablet 200 mg PO BID #180 tab 11/20/17 [Rx Confirmed 02/05/18] amlodipine 5 mg tablet 5 mg PO QDAY #90 tab 12/09/17 [Rx Confirmed 02/05/18] rosuvastatin 5 mg tablet 5 mg PO QDAY 02/02/18 [History Confirmed 02/05/18] triamcinolone acetonide 0.1 % topical cream 1 applic TOPICAL BID 02/02/18 [History Confirmed 02/05/18] prednisone 20 mg tablet 20 mg PO QDAY #10 tab 02/05/18 [Rx Confirmed 02/05/18] PFSH Medical History Arthritis (Acute) Hay fever (Acute) Shoulder pain (Acute) Thyroid disease (Acute) Hypertension (Chronic) Surgical History H/O hemorrhoidectomy (Acute) History of prostate surgery (Acute) Hx of appendectomy (Acute) eye lesion removal (Acute) Family History Grandfather CVA (cerebral vascular accident) Depression Brother COPD (chronic obstructive pulmonary disease) Grandmother Depression Son Arthritis Father Arthritis Other Cancer Hypertension Social History Smoking Status: Never smoker alcohol intake: never substance use type: does not use what type of physical activity do you participate in: walking frequency: 5-6 times per week HPI HPI Chief Complaint: Rash worse on ankles Details: IMANI MINER, is a 77yo M who presents to the office today due to worsening bilateral lower extremity rash. He was seen by his manuscripts curator recently and said rash was possibly due to lower extremity swelling. swelling has now resolved however, rash is still persistent and somewhat worsening. He feels well otherwise and denies chills, fever, sob, chest pain or palpitations. ROS Const Constitutional: No chills, fatigue, fever(s), frequent falls, malaise, weakness, sleep problems or change in appetite Eyes Eyes: No blurry vision, change in vision, double vision, discharge or visual disturbances ENT ENT: No abnormal hearing, ear pain, ear pressure, tinnitus or dizziness/vertigo Resp Respiratory: No cough, shortness of breath or wheezing Cardio Cardiology: No chest pain at rest, chest pain with exertion, shortness of breath, dyspnea on exertion, generalized swelling, irregular heart rhythm, lightheadedness, orthopnea, fast heart rate or palpitations Gastro GI: No abdominal pain, change in bowel habits, constipation, diarrhea, nausea/dyspepsia or vomiting Genitourinary Male: No difficulty urinating, burning urination, painful urination, urinary incontinence, urinary frequency, urinary urgency, urinary hesitancy, urinary retention, blood in urine, Frequent nighttime urination/ nocturia, sexual problems, testicle lump or testicle pain Musc Musculoskeletal: No joint pain, back pain, joint swelling, limited range of motion, numbness or tingling Skin Skin: Positive for rash (Both ankles worse); no change in skin color, itching or wounds Breast Breast: No breast lump or breast pain Neuro Neurology: No frequent falls, weakness, abnormal hearing, numbness, tingling, unsteady gait/balance, dizziness, loss of vision, memory loss or visual disturbances Psych Psychiatric: No memory loss, No anxiety, No change in appetite, No depression, No Thoughts of harming yourself/Others Endo Endocrine: No fatigue, heat intolerance, increased thirst/drinking, increased hunger or increased urination Aller/Imm Allergy/Immunologic: No wheezing, itchy eyes or seasonal allergy symptoms Cl/Lymp Hematologic/Lymphatic: No easy bleeding, easy bruising or enlarged lymph nodes Exam Const General: cooperative, no acute distress Orientation: alert, awake, oriented x3 HENMT Head: atraumatic, normocephalic Ears: hearing grossly normal bilaterally Resp Effort AND Inspection: normal respiratory effort, able to speak in complete sentences Auscultation: Bilateral: Clear to Auscultation Cardio Rate: regular rate Rhythm: regular rhythm Heart Sounds: S1 normal, S2 normal GI Palpation: soft, no hepatosplenomegaly Other: No tenderness on palpation of the inguinal area. No swelling appreciated. Skin Other: Bilateral maculopapular rash noted in the lower extremities. Left lower extremity appears to be improving while the right is extending upwards. Neuro General: alert, awake, oriented x3, moves all extremities, CN's II-XI intact bilaterally Extrem Other: Trace pitting edema extend into the distal nur Psych Appearance: grossly normal Mental Status: mental status grossly normal Mood: congruent mood Affect: normal affect Assessment AND Plan 1. Dermatitis L30.9 Plan Persisting/worsening on the right lower extremity. Patient reports an allergy to grass and was seen recently by his radar tester where he got a shot. He denies any other symptoms at this time. Mild superficial calf pain noted yesterday which has now resolved. Will try a course of oral steroids. Follow up on Thursday. Advised to go to the ER if he notes worsening swelling , shortness of breath or pain. Patient expressed understanding. Plan Detail Other Medications New: Coding Level of Care Code Off vis,est,level 3 Diagnoses Dermatitis L30.9 02/05/18 6512 <Electronically signed by Tania Jackson MD> Date Tnaia Jackson MD Cosigner Signature: Date (if applicable) CC: INTERNAL MEDICINE Observed: 02/02/2018 Status: F Source: [place] OFFICE VISIT 4:27 PM [facility] [address] [place] [address] OFFICE VISIT Date of Service: 02/02/18 MR#: [id number] Acct: [id number] Name: IMANI MINER Rep #: [id number] : 1940 Provider: Tania Jackson MD Age/Sex: 77/M Location: [facility] Status: Signed Intake Vital Signs02/02/18 Height 5 ft 8 in 02/02/18 Weight: 193 lb 02/02/18 Body Mass Index (BMI) 29.3 02/02/18 Blood Pressure 149/81 Intake Visit Reasons: ankle swelling Chief Complaint: Ankles swelling Is patient in pain?: Yes (Rt groin) Pain scale (1-10): 7 Allergies atorvastatin [From Lipitor] Adverse Reaction (Verified 02/02/18 15:09) Pain in joints gemfibrozil [From Lopid] Adverse Reaction (Verified 02/02/18 15:09) Pain in joints niacin Adverse Reaction (Verified 02/02/18 15:09) Other Medications Aspirin [Aspirin, Baby] 81 mg PO DAILY@0800 03/20/14 [History Confirmed 02/02/18] Cyanocobalamin [Vitamin B12] 2,500 mcg PO DAILY@0800 03/20/14 [History Confirmed 02/02/18] Finasteride [Proscar] 5 mg PO QHS 03/20/14 [History Confirmed 02/02/18] Magnesium 500 mg PO DAILY 03/20/14 [History Confirmed 02/02/18] Multivitamins,Therapeutic [Multivitamin] 1 tab PO DAILY 03/20/14 [History Confirmed 02/02/18] Allergy Shot IM QWEEK 08/13/16 [History Confirmed 02/02/18] Bilberry 100 mg PO DAILY 08/13/16 [History Confirmed 02/02/18] Calcium Carbonate [Calcium] 600 mg PO QHS 08/13/16 [History Confirmed 02/02/18] Cholecalciferol (VIT D3) [Vitamin D] 2,000 unit PO DAILY 08/13/16 [History Confirmed 02/02/18] Testosterone Cypionate [Depo-Testosterone] 100 mg IM QWEEK 08/13/16 [History Confirmed 02/02/18] Ubidecarenone [Co Q-10] 30 mg PO DAILY 08/13/16 [History Confirmed 02/02/18] fluticasone 250 mcg-salmeterol 50 mcg/dose blistr powdr for inhalation 1 inh INHALATION ONCE 09/09/17 [History Confirmed 02/02/18] gabapentin 300 mg capsule 300 mg PO Q8H #270 cap 09/09/17 [Rx Confirmed 02/02/18] levothyroxine 112 mcg tablet 112 mcg PO QDAY #90 tab 09/09/17 [Rx Confirmed 02/02/18] losartan 100 mg tablet 100 mg PO QDAY #90 tab 09/09/17 [Rx Confirmed 02/02/18] omeprazole 20 mg capsule,delayed release 20 mg PO ONCE 09/09/17 [History Confirmed 02/02/18] psyllium seed (sugar) oral powder 1 tbsp PO ONCE 09/09/17 [History Confirmed 02/02/18] hydrochlorothiazide 25 mg tablet 25 mg PO QDAY #90 tab 09/24/17 [Rx Confirmed 02/02/18] labetalol 200 mg tablet 200 mg PO BID #180 tab 11/20/17 [Rx Confirmed 02/02/18] amlodipine 5 mg tablet 5 mg PO QDAY #90 tab 12/09/17 [Rx Confirmed 02/02/18] rosuvastatin 5 mg tablet 5 mg PO QDAY 02/02/18 [History Confirmed 02/02/18] triamcinolone acetonide 0.1 % topical cream 1 applic TOPICAL BID 02/02/18 [History Confirmed 02/02/18] PFSH Medical History Arthritis (Acute) Hay fever (Acute) Shoulder pain (Acute) Thyroid disease (Acute) Hypertension (Chronic) Surgical History H/O hemorrhoidectomy (Acute) History of prostate surgery (Acute) Hx of appendectomy (Acute) eye lesion removal (Acute) Family History Grandfather CVA (cerebral vascular accident) Depression Brother COPD (chronic obstructive pulmonary disease) Grandmother Depression Son Arthritis Father Arthritis Other Cancer Hypertension Social History Smoking Status: Never smoker alcohol intake: never substance use type: does not use what type of physical activity do you participate in: walking frequency: 5-6 times per week HPI HPI Chief Complaint: Ankles swelling Details: IMANI MINER, is a 77yo M who presents to the office today due to bilateral lower extremity swelling and lower extremity rash. Swelling is said to be worse since the day progresses and relieved in the morning. Is currently on amlodipine for his blood pressure. He denies shortness of breath, palpitations or chest pain. He also reports right groin swelling which is said to be intermittent. He denies any known precipitating or aggravating factors. Typically resolves on its own. ROS Const Constitutional: No chills, fatigue, fever(s), frequent falls, malaise, weakness, sleep problems or change in appetite Eyes Eyes: No blurry vision, change in vision, double vision, discharge or visual disturbances ENT ENT: No abnormal hearing, ear pain, ear pressure, tinnitus or dizziness/vertigo Resp Respiratory: No shortness of breath or wheezing Cardio Cardiology: No chest pain at rest, chest pain with exertion, shortness of breath, dyspnea on exertion, irregular heart rhythm, lightheadedness, orthopnea, fast heart rate or palpitations Gastro GI: No abdominal pain, change in bowel habits, constipation, diarrhea, nausea/dyspepsia or vomiting Genitourinary Male: Positive for side pain (Pain Rt groin area); no difficulty urinating, burning urination, painful urination, urinary incontinence, urinary frequency, urinary urgency, urinary hesitancy, urinary retention, blood in urine, Frequent nighttime urination/ nocturia, sexual problems, testicle lump or testicle pain Musc Musculoskeletal: No joint pain, joint swelling, limited range of motion, numbness or tingling Skin Skin: Positive for rash; no change in skin color, itching or wounds Breast Breast: No breast lump or breast pain Neuro Neurology: No frequent falls, weakness, abnormal hearing, numbness, tingling, unsteady gait/balance, dizziness, loss of vision, memory loss or visual disturbances Psych Psychiatric: No memory loss, No anxiety, No change in appetite, No depression, No Thoughts of harming yourself/Others Endo Endocrine: No fatigue, heat intolerance, increased thirst/drinking, increased hunger or increased urination Aller/Imm Allergy/Immunologic: No wheezing or itchy eyes Cl/Lymp Hematologic/Lymphatic: No easy bleeding, easy bruising or enlarged lymph nodes Exam Const General: cooperative, no acute distress Orientation: alert, awake, oriented x3 HENMT Head: atraumatic, normocephalic Ears: hearing grossly normal bilaterally Resp Effort AND Inspection: normal respiratory effort, able to speak in complete sentences Auscultation: Bilateral: Clear to Auscultation Cardio Rate: regular rate Rhythm: regular rhythm Heart Sounds: S1 normal, S2 normal GI Palpation: soft, no hepatosplenomegaly Other: No tenderness on palpation of the inguinal area. No swelling appreciated. Skin Other: Bilateral maculopapular rash noted in the lower extremities. Appears to follow distribution. Neuro General: alert, awake, oriented x3, moves all extremities, CN's II-XI intact bilaterally Extrem Other: Trace pitting edema extend into the distal nur Psych Appearance: grossly normal Mental Status: mental status grossly normal Mood: congruent mood Affect: normal affect Assessment AND Plan 1. Lower extremity edema R60.0 Plan Trace and bilateral. Probably due to mild venous insufficiency/medication side effect. Conservative measures including lower extremity elevation, compression stockings and exercise discussed. Not severe enough to discontinue amlodipine. Will monitor. 2. Dermatitis L30.9 Plan Most likely contact. Follows a distribution around his stocking line. Advised to get 100% cotton stockings with no latex/bands. Okay to use triamcinolone occasionally. Lower extremity swelling prevention/control discussed as above. Follow-up at next visit. 3. Hypertension I10 Plan Better controlled. Continue current medications. Continue lifestyle modifications. Follow-up at next visit. This note was generated with [employer] dictation software. It may contain incorrect words, spelling, and punctuation that were not noted in checking the note before signing. Plan Detail Other Medications New: Discontinued: Coding Level of Care Code Off vis,est,level 3 Diagnoses Lower extremity edema R60.0 Dermatitis L30.9 Hypertension I10 02/02/18 2637 <Electronically signed by Tania Jackson MD> Date Tania Reyes Signature: Date (if applicable) CC: URGENT CARE VISIT Observed: 01/04/2018 Status: F Source: [facility] REPORT 10:51 AM [facility] [address] [place] [address] [address] [place] [address] OFFICE VISIT Date of Service: 01/04/18 MR#: [id number] Acct: [id number] Name: IMANI MINER Rep #: [id number] : 1940 Provider: Jaden WELLINGTON Age/Sex: 77/M Location: [facility] Status: Signed Intake Vital Signs01/04/18 Height 5 ft 8 in Intake Visit Reasons: LEFT TOE/TOE PAIN/ CUT TOENAIL TOO SHORT Allergies atorvastatin [From Lipitor] Adverse Reaction (Verified 01/04/18 10:32) Pain in joints gemfibrozil [From Lopid] Adverse Reaction (Verified 01/04/18 10:32) Pain in joints niacin Adverse Reaction (Verified 01/04/18 10:32) Other Medications Aspirin [Aspirin, Baby] 81 mg PO DAILY@0800 03/20/14 [History Confirmed 01/04/18] Cyanocobalamin [Vitamin B12] 2,500 mcg PO DAILY@0800 03/20/14 [History Confirmed 01/04/18] Finasteride [Proscar] 5 mg PO QHS 03/20/14 [History Confirmed 01/04/18] Magnesium 500 mg PO DAILY 03/20/14 [History Confirmed 01/04/18] Multivitamins,Therapeutic [Multivitamin] 1 tab PO DAILY 03/20/14 [History Confirmed 01/04/18] Allergy Shot IM QWEEK 08/13/16 [History Confirmed 01/04/18] Bilberry 100 mg PO DAILY 08/13/16 [History Confirmed 01/04/18] Calcium Carbonate [Calcium] 600 mg PO QHS 08/13/16 [History Confirmed 01/04/18] Cholecalciferol (VIT D3) [Vitamin D] 2,000 unit PO DAILY 08/13/16 [History Confirmed 01/04/18] Testosterone Cypionate [Depo-Testosterone] 100 mg IM QWEEK 08/13/16 [History Confirmed 01/04/18] Ubidecarenone [Co Q-10] 30 mg PO DAILY 08/13/16 [History Confirmed 01/04/18] Promethazine HCl/Codeine [Prometh-Codein 6.25-10 mg/5 ml] 5 ml PO Q4H PRN PRN 01/03/17 [History Confirmed 01/04/18] fluticasone 250 mcg-salmeterol 50 mcg/dose blistr powdr for inhalation 1 inh INHALATION ONCE 09/09/17 [History Confirmed 01/04/18] gabapentin 300 mg capsule 300 mg PO Q8H #270 cap 09/09/17 [Rx Confirmed 01/04/18] levothyroxine 112 mcg tablet 112 mcg PO QDAY #90 tab 09/09/17 [Rx Confirmed 01/04/18] losartan 100 mg tablet 100 mg PO QDAY #90 tab 09/09/17 [Rx Confirmed 01/04/18] omeprazole 20 mg capsule,delayed release 20 mg PO ONCE 09/09/17 [History Confirmed 01/04/18] psyllium seed (sugar) oral powder 1 tbsp PO ONCE 09/09/17 [History Confirmed 01/04/18] hydrochlorothiazide 25 mg tablet 25 mg PO QDAY #90 tab 09/24/17 [Rx Confirmed 01/04/18] labetalol 200 mg tablet 200 mg PO BID #180 tab 11/20/17 [Rx Confirmed 01/04/18] amlodipine 5 mg tablet 5 mg PO QDAY #90 tab 12/09/17 [Rx Confirmed 01/04/18] rosuvastatin 5 mg tablet 5 mg PO QDAY #90 tab 12/23/17 [Rx Confirmed 01/04/18] cephalexin 500 mg capsule 500 mg PO Q12H 10 Days #20 cap 01/04/18 [Rx Confirmed 01/04/18] PFSH Medical History Arthritis (Acute) Hay fever (Acute) Shoulder pain (Acute) Thyroid disease (Acute) Hypertension (Chronic) Family History Grandfather CVA (cerebral vascular accident) Depression Brother COPD (chronic obstructive pulmonary disease) Grandmother Depression Son Arthritis Father Arthritis Other Cancer Hypertension Social History Smoking Status: Never smoker alcohol intake: never substance use type: does not use what type of physical activity do you participate in: walking frequency: 5-6 times per week HPI HPI Details: IMANI MINER, is a 77 M who presents to the office today for irritation of the left fourth toe. Patient states that he cut his nail too short several days ago and noticed some swelling and redness to the toe. Patient denies any numbness or tingling to the toe. He has had no fever, chills, sweats. No other associated symptoms or alleviating/aggravating factors. ROS Const Constitutional: No chills, fever(s), abnormal sleep pattern or fatigue Resp Respiratory: No shortness of breath or chest congestion Cardio Cardiology: No chest pain at rest, chest pain with exertion or shortness of breath Musc Musculoskeletal: No abnormal walking, joint pain, tingling or numbness Skin Skin: Positive for other (Swelling and redness to the left fourth toe.); no wounds or lesions Breast Breast: Positive for other (Swelling and redness to the left fourth toe.) Neuro Neurology: No behavioral changes, confusion, abnormal walking, tingling or numbness Psych Psychiatric: No behavioral changes, No confusion, No abnormal sleep pattern Endo Endocrine: No fatigue Exam Const General: cooperative, healthy appearing Resp Effort AND Inspection: normal respiratory effort Auscultation: Bilateral: Clear to Auscultation Cardio Palpation: normal PMI Rate: regular rate Rhythm: regular rhythm Skin Other: Ingrown toenail of the left fourth toe with very mild swelling and localized erythema. No warmth or streaking. Appropriate Refill and sensation to the toe. Neuro General: alert, CN's II-XI intact bilaterally Sensory Exam: no sensory deficits noted Extrem Other: See skin for toe exam. Psych Appearance: grossly normal Mental Status: mental status grossly normal Assessment AND Plan Problems 1. Ingrown toenail of left foot with infection L60.0 Status Acute Plan Keflex as prescribed today. Patient also advised to use warm water soaks as well as advised on appropriate nail trimming. Patient to follow-up with PCP in 5-7 days if no better or sooner if worse. Advised of potential red flags when appropriate report to the ED. Patient verbalized understanding of all the above. This note was generated with [employer] dictation software. It may contain incorrect words, spelling, and punctuation that were not noted in checking the note before signing. Medications New: Coding Level of Care Code Off vis,est,level 3 Diagnoses Ingrown toenail of left foot with infection L60.0 01/04/18 1051 <Electronically signed by Jaden WELLINGTON> Date Jaden WELLINGTON Cosigner Signature: Date (if applicable) CC: INTERNAL MEDICINE Observed: 11/23/2017 Status: F Source: [facility] OFFICE VISIT 8:19 AM [facility] [address] [address] OFFICE VISIT Date of Service: 11/20/17 MR#: [id number] Acct: [id number] Name: MORGANIMANI Asha Rep #: [id number] : 1940 Provider: Tania Jackson MD Age/Sex: 76/M Location: [facility] Status: Signed Intake Vital Signs11/20/17 Height 5 ft 7 in 11/20/17 Weight: 190 lb 11/20/17 Body Mass Index (BMI) 29.7 11/20/17 Blood Pressure 104/64 11/20/17 Blood Pressure Location Lt brachial Intake Visit Reasons: 1 MO F/U Chief Complaint: follow-up visit Is patient in pain?: No Allergies atorvastatin [From Lipitor] Adverse Reaction (Verified 08/22/16 10:07) Pain in joints gemfibrozil [From Lopid] Adverse Reaction (Verified 08/22/16 10:07) Pain in joints niacin Adverse Reaction (Verified 08/22/16 10:07) Other Medications Aspirin [Aspirin, Baby] 81 mg PO DAILY@0800 03/20/14 [History Confirmed 09/09/17] Cyanocobalamin [Vitamin B12] 2,500 mcg PO DAILY@0800 03/20/14 [History Confirmed 09/09/17] Finasteride [Proscar] 5 mg PO QHS 03/20/14 [History Confirmed 09/09/17] Magnesium 500 mg PO DAILY 03/20/14 [History Confirmed 09/09/17] Multivitamins,Therapeutic [Multivitamin] 1 tab PO DAILY 03/20/14 [History Confirmed 09/09/17] Allergy Shot IM QWEEK 08/13/16 [History Confirmed 09/09/17] Bilberry 100 mg PO DAILY 08/13/16 [History Confirmed 09/09/17] Calcium Carbonate [Calcium] 600 mg PO QHS 08/13/16 [History Confirmed 09/09/17] Cholecalciferol (VIT D3) [Vitamin D] 2,000 unit PO DAILY 08/13/16 [History Confirmed 09/09/17] Testosterone Cypionate [Depo-Testosterone] 100 mg IM QWEEK 08/13/16 [History Confirmed 09/09/17] Ubidecarenone [Co Q-10] 30 mg PO DAILY 08/13/16 [History Confirmed 09/09/17] Promethazine HCl/Codeine [Prometh-Codein 6.25-10 mg/5 ml] 5 ml PO Q4H PRN PRN 01/03/17 [History Confirmed 09/09/17] fluticasone 250 mcg-salmeterol 50 mcg/dose blistr powdr for inhalation 1 inh INHALATION ONCE 09/09/17 [History Confirmed 09/09/17] gabapentin 300 mg capsule 300 mg PO Q8H #270 cap 09/09/17 [Rx Confirmed 09/09/17] levothyroxine 112 mcg tablet 112 mcg PO QDAY #90 tab 09/09/17 [Rx Confirmed 09/09/17] losartan 100 mg tablet 100 mg PO QDAY #90 tab 09/09/17 [Rx Confirmed 09/09/17] omeprazole 20 mg capsule,delayed release 20 mg PO ONCE 09/09/17 [History Confirmed 09/09/17] psyllium seed (sugar) oral powder 1 tbsp PO ONCE 09/09/17 [History Confirmed 09/09/17] simvastatin 40 mg tablet 40 mg PO QHS #90 tab 09/09/17 [Rx Confirmed 09/09/17] hydrochlorothiazide 25 mg tablet 25 mg PO QDAY #90 tab 09/24/17 [Rx] amlodipine 5 mg tablet 5 mg PO QDAY #30 tab 10/19/17 [Rx Confirmed 10/19/17] labetalol 200 mg tablet 200 mg PO BID #180 tab 11/20/17 [Rx Confirmed 11/20/17] PFSH Surgical History H/O hemorrhoidectomy (Acute) History of prostate surgery (Acute) Hx of appendectomy (Acute) eye lesion removal (Acute) Family History Grandfather CVA (cerebral vascular accident) Depression Brother COPD (chronic obstructive pulmonary disease) Grandmother Depression Son Arthritis Father Arthritis Social History Smoking Status: Never smoker alcohol intake: never substance use type: does not use what type of physical activity do you participate in: walking frequency: 5-6 times per week HPI HPI Chief Complaint: follow-up visit Details: IMANI MINER, is a 76yo M who presents to the office today for follow-up. He has no acute complaints at this time. At his last visit he had adjustments his blood pressure medication. Blood pressure today is 104/64 mmHg. He also brings along a blood pressure log which shows average blood pressure readings in the 130s. He feels well otherwise and denies chest pain, dizziness or leg swelling. He however reports itching of his feet. He denies any new changes but has noted some scabbing around his feet. Denies any known history of atopic or contact dermatitis. ROS Const Constitutional: No weight change, body ache, chills, fatigue, sleep problems, fever(s), change in appetite, snoring, weakness, frequent falls, headache(s) or excessive sweating Eyes Eyes: No change in vision, eye pain, light sensitivity or blurry vision ENT ENT: No headache(s), abnormal hearing, ear pain, tinnitus, nasal congestion, sore throat or neck pain Resp Respiratory: No snoring, cough, shortness of breath or wheezing Cardio Cardiology: No excessive sweating, chest pain at rest, chest pain with exertion, shortness of breath, dyspnea on exertion, palpitations, orthopnea or lightheadedness Gastro GI: No abdominal pain, change in bowel habits, constipation, diarrhea, vomiting, nausea/dyspepsia or cramping Musc Musculoskeletal: No neck pain, abnormal walking, joint pain, back pain, limited range of motion, numbness or tingling Skin Skin: No redness, dry skin, lesions, wounds or rash Neuro Neurology: No weakness, frequent falls, headache(s), abnormal hearing, abnormal walking, numbness, tingling, abnormal speech, dizziness or memory loss Psych Psychiatric: No change in appetite, No memory loss, No anxiety, No depression, No Thoughts of harming yourself/Others Endo Endocrine: No fatigue, excessive sweating, cold intolerance, increased thirst/drinking, heat intolerance, flushing or increased hunger Aller/Imm Allergy/Immunologic: No wheezing, hives or seasonal allergy symptoms Cl/Lymp Hematologic/Lymphatic: No easy bleeding, easy bruising or enlarged lymph nodes Exam Const General: cooperative, no acute distress, well developed Orientation: alert, awake, oriented x3 HENMT Head: normal to inspection, normocephalic, atraumatic Ears: hearing grossly normal bilaterally Resp Effort AND Inspection: normal respiratory effort, able to speak in complete sentences Auscultation: Bilateral: Clear to Auscultation Cardio Rate: regular rate Rhythm: regular rhythm Heart Sounds: S1 normal, S2 normal GI Palpation: soft, no hepatosplenomegaly Neuro General: alert, awake, oriented x3, moves all extremities, CN's II-XI intact bilaterally Extrem General: no clubbing, cyanosis or edema Psych Appearance: grossly normal Mental Status: mental status grossly normal Affect: normal affect Assessment AND Plan 1. Benign essential hypertension I10 Plan Now better controlled. Blood pressure in office today is 104/64 mmHg. Blood pressure log shows an average blood pressure reading in the 130s over 70s. Continue current medication. Lifestyle modification reinforced. Follow-up in 3 months. 2. Dermatitis L30.9 Plan Symptoms of itching around his feet possibly due to contact/allergic dermatitis. Moisturize skin daily. Hypoallergenic stockings and foot wear. OTC hydrocortisone. Advised to call the office if symptoms worsen. This note was generated with [employer] dictation software. It may contain incorrect words, spelling, and punctuation that were not noted in checking the note before signing. Plan Detail Other Medications Refilled: Coding Level of Care Code Off vis,est,level 3 Diagnoses Benign essential hypertension I10 Dermatitis L30.9 11/23/17 0819 <Electronically signed by Tania Jackson MD> Date Tania Jackson MD Cosigner Signature: Date (if applicable) CC: INTERNAL MEDICINE Observed: 10/23/2017 Status: F Source: [facility] OFFICE VISIT 4:49 PM [facility] [address] [address] [place] [address] OFFICE VISIT Date of Service: 10/19/17 MR#: [id number] Acct: [id number] Name: IMANI MINER Rep #: [id number] : 1940 Provider: Tania Jackson MD Age/Sex: 76/M Location: [facility] Status: Signed Intake Vital Signs10/19/17 Height 5 ft 7 in 10/19/17 Weight: 190 lb 8 oz Intake Visit Reasons: 3 M FU 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 [employer] Required: No Accompanied by: Is patient in pain?: Yes (back ) Pain scale (1-10): 2 Allergies atorvastatin [From Lipitor] Adverse Reaction (Verified 08/22/16 10:07) Pain in joints gemfibrozil [From Lopid] Adverse Reaction (Verified 08/22/16 10:07) Pain in joints niacin Adverse Reaction (Verified 08/22/16 10:07) Other Medications Aspirin [Aspirin, Baby] 81 mg PO DAILY@0800 03/20/14 [History Confirmed 09/09/17] Cyanocobalamin [Vitamin B12] 2,500 mcg PO DAILY@0800 03/20/14 [History Confirmed 09/09/17] Finasteride [Proscar] 5 mg PO QHS 03/20/14 [History Confirmed 09/09/17] Levothyroxine [Synthroid] 112 mcg PO DAILY 03/20/14 [History Confirmed 09/09/17] Magnesium 500 mg PO DAILY 03/20/14 [History Confirmed 09/09/17] Multivitamins,Therapeutic [Multivitamin] 1 tab PO DAILY 03/20/14 [History Confirmed 09/09/17] Allergy Shot IM QWEEK 08/13/16 [History Confirmed 09/09/17] Bilberry 100 mg PO DAILY 08/13/16 [History Confirmed 09/09/17] Calcium Carbonate [Calcium] 600 mg PO QHS 08/13/16 [History Confirmed 09/09/17] Cholecalciferol (VIT D3) [Vitamin D] 2,000 unit PO DAILY 08/13/16 [History Confirmed 09/09/17] Testosterone Cypionate [Depo-Testosterone] 100 mg IM QWEEK 08/13/16 [History Confirmed 09/09/17] Ubidecarenone [Co Q-10] 30 mg PO DAILY 08/13/16 [History Confirmed 09/09/17] Promethazine HCl/Codeine [Prometh-Codein 6.25-10 mg/5 ml] 5 ml PO Q4H PRN PRN 01/03/17 [History Confirmed 09/09/17] fluticasone 250 mcg-salmeterol 50 mcg/dose blistr powdr for inhalation 1 inh INHALATION ONCE 09/09/17 [History Confirmed 09/09/17] gabapentin 300 mg capsule 300 mg PO Q8H #270 cap 09/09/17 [Rx Confirmed 09/09/17] gabapentin 600 mg tablet 300 mg PO BIDCM tab 09/09/17 [History Confirmed 09/09/17] labetalol 200 mg tablet 200 mg PO BID #180 tab 09/09/17 [Rx Confirmed 09/09/17] levothyroxine 112 mcg tablet 112 mcg PO QDAY #90 tab 09/09/17 [Rx Confirmed 09/09/17] losartan 100 mg tablet 100 mg PO QDAY #90 tab 09/09/17 [Rx Confirmed 09/09/17] losartan 50 mg tablet 100 mg PO DAILY tab 09/09/17 [History Confirmed 09/09/17] omeprazole 20 mg capsule,delayed release 20 mg PO ONCE 09/09/17 [History Confirmed 09/09/17] psyllium seed (sugar) oral powder 1 tbsp PO ONCE 09/09/17 [History Confirmed 09/09/17] simvastatin 40 mg tablet 40 mg PO QHS #90 tab 09/09/17 [Rx Confirmed 09/09/17] hydrochlorothiazide 25 mg tablet 25 mg PO QDAY #90 tab 09/24/17 [Rx] amlodipine 5 mg tablet 5 mg PO QDAY #30 tab 10/19/17 [Rx Confirmed 10/19/17] PFSH Surgical History H/O hemorrhoidectomy (Acute) History of prostate surgery (Acute) Hx of appendectomy (Acute) eye lesion removal (Acute) Family History Grandfather CVA (cerebral vascular accident) Depression Brother COPD (chronic obstructive pulmonary disease) Grandmother Depression Son Arthritis Father Arthritis Social History Smoking Status: Never smoker alcohol intake: never substance use type: does not use what type of physical activity do you participate in: walking frequency: 5-6 times per week HPI 3 M FU: Details: IMANI MINER, is a 76yo M who presents to the office today for follow-up of his chronic medical conditions. He also has some acute complaints. He reports that history of epistaxis in the past however this had subsided. Most recently he noted bleeding from his nose. This bleeding is typically spontaneously resolved occasionally he has to apply little bit of pressure. He is currently on daily aspirin. He however stopped the aspirin when he noted the bleeding. He denies bleeding from other orifices or easy bruising.. He brings along the blood pressure log which shows still blood poorly controlled blood pressure with readings in the 150s and 160s systolic. He reports compliance with his blood pressure medications and is currently on labetalol, losartan and hydrochlorothiazide. He reports a prior history of difficult to control blood pressure. He denies chest pain, leg swelling, palpitations or shortness of breath. ROS Const Constitutional: No body ache, chills, fever(s), frequent falls, weight change, sleep problems, change in appetite, snoring, excessive sweating or weakness Eyes Eyes: No blurry vision, change in vision, eye pain or light sensitivity ENT ENT: No abnormal hearing, ear pain, tinnitus or sore throat Resp Respiratory: No snoring, shortness of breath or wheezing Cardio Cardiology: No excessive sweating, chest pain at rest, chest pain with exertion, shortness of breath, dyspnea on exertion, orthopnea, palpitations or lightheadedness Gastro GI: No abdominal pain, change in bowel habits, diarrhea, constipation, vomiting, nausea/dyspepsia or cramping Musc Musculoskeletal: No abnormal walking, limited range of motion, numbness or tingling Skin Skin: No redness, dry skin, itching, lesions, wounds or rash Neuro Neurology: No frequent falls, weakness, abnormal hearing, abnormal walking, numbness, tingling, abnormal speech, dizziness or memory loss Psych Psychiatric: No change in appetite, No memory loss, No anxiety, No depression, No Thoughts of harming yourself/Others Endo Endocrine: No excessive sweating, cold intolerance, increased thirst/drinking, heat intolerance, increased hunger or flushing Aller/Imm Allergy/Immunologic: No wheezing, itchy eyes, seasonal allergy symptoms or hives Cl/Lymp Hematologic/Lymphatic: No easy bleeding, easy bruising or enlarged lymph nodes Exam Const General: cooperative, no acute distress, well developed Orientation: alert, awake, oriented x3 HENMT Head: normal to inspection, normocephalic, atraumatic Ears: hearing grossly normal bilaterally Resp Effort AND Inspection: normal respiratory effort, able to speak in complete sentences Auscultation: Bilateral: Clear to Auscultation Cardio Rate: regular rate Rhythm: regular rhythm Heart Sounds: S1 normal, S2 normal GI Palpation: soft, no hepatosplenomegaly Neuro General: alert, awake, oriented x3, moves all extremities, CN's II-XI intact bilaterally Extrem General: no clubbing, cyanosis or edema Psych Appearance: grossly normal Mental Status: mental status grossly normal Affect: normal affect Assessment AND Plan 1. Epistaxis, recurrent R04.0 Plan He has a chronic history of epistaxis dating back to his childhood. Recent episodes typically spontaneously resolved with occasionally resolved on mild pressure. He denies bleeding from other orifices. Advised to humidify the air in his house. Saline spray. Follow-up at next visit if still persistent, will consider adjusting his antiplatelet. 2. Hypertension I10 Plan Still not optimally controlled. He is currently on labetalol, losartan and hydrochlorothiazide. Patient reports a prior history of difficult to control blood pressure. We will add amlodipine 5 mg daily. Lifestyle modification with salt restriction, exercise and weight loss. Follow-up in 1 month. This note was generated with [employer] software. It may contain incorrect words, spelling, and punctuation that were not noted in checking the note before signing. Plan Detail Other Medications New: Follow Up 1 Month Coding Level of Care Code Off vis,est,level 3 Diagnoses Epistaxis, recurrent R04.0 Hypertension I10 10/23/17 1649 <Electronically signed by Tania Jackson MD> Date Tania Jackson MD Cosigner Signature: Date (if applicable) CC: Observed: 10/23/2017 Status: F Source: [place] CULTURE, URINE 10:39 AM [facility] Urine Culture Culture exhibits no growth. Performed By: #### M100.0650 #### [facility] [address] [place], [address] BASIC METABOLIC Collected: 09/23/2017 Status: F Source: [place] PROFILE (BMP) 7:45 AM [facility] TYPE CODE TESTS RESULT OUT OF RANGE REFERENCE UNITS LAB L501.0100 70-110 mg/dL Normal GLU 104 LAB L501.1000 7-18 mg/dL High BUN 20 LAB L501.1100 0.70-1.30 mg/dL Normal 1.26 CREAT,SERUM Result Comment: The validity of the calculated GFR AND GFRAA in patients over 70 years has not been determined. Clinical correlation is essential. LAB L501.1110 >60 mL/min Low EST GFR 59 Result Comment: Non- GFR Calc LAB L501.1115 >60 mL/min Normal EST GFR - AA 72 Result Comment: GFR Calc LAB L501.1300 10-20 RATIO Normal BUN/CRE 15.9 LAB L501.2200 8.5-10.1 mg/dL CA Normal 8.6 LAB L501.5300 136-145 mmol/L NA Normal 136 LAB L501.5600 3.5-5.1 mmol/L K Normal 4.2 LAB L501.5900 98-107 mmol/L CL Normal 99 LAB L501.6100 21.0-32.0 mmol/L Normal CO2 28.0 LAB L501.6200 5-15 Normal GAP 9 Performed By: #### L500.2500, L500.3400, L500.4100 #### [facility] [address] [place], [place], [id number] LIVER PROFILE Collected: 09/23/2017 Status: F Source: [place] 7:45 AM [facility] TYPE CODE TESTS RESULT OUT OF RANGE REFERENCE UNITS LAB L501.1500 6.4-8.2 g/dL Normal T PROT 7.0 LAB L501.1800 3.4-5.0 g/dL Normal ALB 3.4 Result Comment: Please note revised Albumin AND Globulin reference range effective 2017. LAB L501.1950 2.2-4.2 g/dL Normal GLOB 3.6 LAB L501.4100 15-37 U/L Normal AST 23 LAB L501.4305 45-117 U/L Normal ALK P 105 LAB L501.4405 12-78 U/L Normal ALT 42 LAB L501.4600 0.20-1.00 mg/dL High T BILI 1.20 LAB L501.4700 0.00-0.30 mg/dL Normal D BILI 0.27 Performed By: #### L500.2500, L500.3400, L500.4100 #### [facility] [address] [place], [place], [id number] LIPID PROFILE Collected: 09/23/2017 Status: F Source: [place] 7:45 [facility] REPOSITORY TYPE CODE TESTS RESULT OUT OF RANGE REFERENCE UNITS LAB L501.4900 200 mg/dL Normal CHOL 138 Result Comment: <200 mg/dL Desirable 200-240 mg/dL Borderline >240 mg/dL High Risk LAB L501.5000 mg/dL High TRIG 220 Result Comment: The drugs N-Acetylcysteine and Metamizole may falsely depress this assay. Serum Triglycerides Reference Interval Normal <150 mg/dL Borderline high 150 - 199 mg/dL High 200 - 499 mg/dL Very High > or = 500 mg/dL LAB L501.6400 mg/dL Low HDL 36 Result Comment: The drugs N-Acetylcysteine and Metamizole may falsely depress this assay. Reference Range HDL <40 mg/dL Low HDL Cholesterol HDL >or= 60 mg/dL High HDL Cholesterol LAB L501.6500 0-130 mg/dL Normal LDL 58 LAB L501.6600 5-40 mg/dL High VLDL 44 Performed By: #### L500.2500, L500.3400, L500.4100 #### [facility] [address] [place], [place], [address] MAGNESIUM Collected: 09/23/2017 Status: F Source: [place] 7:45 AM [facility] [place] Order Comment: Order Date: 07/21/17 Order Info: 23522-2 - *Magnesium TYPE CODE TESTS RESULT OUT OF RANGE REFERENCE UNITS LAB L501.5200 1.8-2.4 mg/dL Normal MG 2.1 Performed By: #### L501.5200 #### [facility] [address] [place], [address] INTERNAL MEDICINE Observed: 09/10/2017 Status: F Source: [place] OFFICE VISIT 2:04 PM [facility] [address] [place] [address] OFFICE VISIT Date of Service: 09/09/17 MR#: [id number] Acct: [id number] Name: IMANI MINER Asha Rep #: [id number] : 1940 Provider: Huber Solano NP Age/Sex: 76/M Location: [facility] Status: Signed Intake Vital Signs09/09/17 Height 5 ft 7 in 09/09/17 Weight: 187 lb 6 oz 09/09/17 Body Mass Index (BMI) 29.3 09/09/17 Blood Pressure 173/84 09/09/17 Blood Pressure Location Lt brachial Intake Visit Reasons: ELEVATED BP Chief Complaint: elevated BP Allergies atorvastatin [From Lipitor] Adverse Reaction (Verified 08/22/16 10:07) Pain in joints gemfibrozil [From Lopid] Adverse Reaction (Verified 08/22/16 10:07) Pain in joints niacin Adverse Reaction (Verified 08/22/16 10:07) Other Medications Aspirin [Aspirin, Baby] 81 mg PO DAILY@0800 03/20/14 [History Confirmed 09/09/17] Cyanocobalamin [Vitamin B12] 2,500 mcg PO DAILY@0800 03/20/14 [History Confirmed 09/09/17] Finasteride [Proscar] 5 mg PO QHS 03/20/14 [History Confirmed 09/09/17] Levothyroxine [Synthroid] 112 mcg PO DAILY 03/20/14 [History Confirmed 09/09/17] Magnesium 500 mg PO DAILY 03/20/14 [History Confirmed 09/09/17] Multivitamins,Therapeutic [Multivitamin] 1 tab PO DAILY 03/20/14 [History Confirmed 09/09/17] Allergy Shot IM QWEEK 08/13/16 [History Confirmed 09/09/17] Bilberry 100 mg PO DAILY 08/13/16 [History Confirmed 09/09/17] Calcium Carbonate [Calcium] 600 mg PO QHS 08/13/16 [History Confirmed 09/09/17] Cholecalciferol (VIT D3) [Vitamin D] 2,000 unit PO DAILY 08/13/16 [History Confirmed 09/09/17] Testosterone Cypionate [Depo-Testosterone] 100 mg IM QWEEK 08/13/16 [History Confirmed 09/09/17] Ubidecarenone [Co Q-10] 30 mg PO DAILY 08/13/16 [History Confirmed 09/09/17] Promethazine HCl/Codeine [Prometh-Codein 6.25-10 mg/5 ml] 5 ml PO Q4H PRN PRN 01/03/17 [History Confirmed 09/09/17] fluticasone 250 mcg-salmeterol 50 mcg/dose blistr powdr for inhalation 1 inh INHALATION ONCE 09/09/17 [History Confirmed 09/09/17] gabapentin 300 mg capsule 300 mg PO Q8H #270 cap 09/09/17 [Rx Confirmed 09/09/17] gabapentin 600 mg tablet 300 mg PO BIDCM tab 09/09/17 [History Confirmed 09/09/17] hydrochlorothiazide 25 mg tablet 25 mg PO QDAY #30 tab 09/09/17 [Rx Confirmed 09/09/17] labetalol 200 mg tablet 200 mg PO BID #180 tab 09/09/17 [Rx Confirmed 09/09/17] levothyroxine 112 mcg tablet 112 mcg PO QDAY #90 tab 09/09/17 [Rx Confirmed 09/09/17] losartan 100 mg tablet 100 mg PO QDAY #90 tab 09/09/17 [Rx Confirmed 09/09/17] losartan 50 mg tablet 100 mg PO DAILY tab 09/09/17 [History Confirmed 09/09/17] omeprazole 20 mg capsule,delayed release 20 mg PO ONCE 09/09/17 [History Confirmed 09/09/17] psyllium seed (sugar) oral powder 1 tbsp PO ONCE 09/09/17 [History Confirmed 09/09/17] simvastatin 40 mg tablet 40 mg PO QHS #90 tab 09/09/17 [Rx Confirmed 09/09/17] PFSH Medical History BPH (benign prostatic hyperplasia) (Chronic) Hypertension (Chronic) Long-term current use of high risk medication other than anticoagulant (Chronic) Benign essential hypertension (Chronic) Benign prostate hyperplasia (Chronic) Gastroesophageal reflux disease (Chronic) Hyperlipidemia (Chronic) Hypothyroidism (Chronic) Restless leg syndrome (Chronic) Chest discomfort (Acute) Dyspnea (Acute) Abnormal nuclear stress test (Acute) High blood pressure (Chronic) Abnormal ECG (Acute) Surgical History H/O hemorrhoidectomy (Acute) History of prostate surgery (Acute) Hx of appendectomy (Acute) eye lesion removal (Acute) Family History Grandfather CVA (cerebral vascular accident) Depression Brother COPD (chronic obstructive pulmonary disease) Grandmother Depression Son Arthritis Father Arthritis Social History Smoking Status: Never smoker alcohol intake: never substance use type: does not use what type of physical activity do you participate in: walking frequency: 5-6 times per week HPI ELEVATED BP: Chief Complaint: elevated BP Details: IMANI MINER, is a 76 M who presents to the office today for an acute complaint of elevated blood pressure readings. He has a past medical history which is significant for that of hypertension, hyperlipidemia, hypothyroidism, restless leg syndrome, hearing impairment, osteoarthritis, GERD, and asthma. The patient states that he has been taking his blood pressure medications appropriately which consists of losartan 100 mg daily and labetalol 200 mg twice daily. The patient states that he has been monitoring His blood pressures daily at home and has noticed some elevated blood pressures with a systolic being as elevated as 170 and diastolic being as high as 90. The patient's blood pressure in the office today is 173/84. The patient denies any symptoms related to high blood pressure, though does state that when he took a blood pressure reading at home and it was 170s over 80s, he felt a little bit shaky and nervous. The patient denies any chest pain pressure, syncope or presyncopal episodes, changes in vision, headache, or blurry vision. The patient does note that he is on testosterone for his low testosterone and takes 100 mg IM every other week. He states he has not had his testosterone levels checked in some time. Records were reviewed and demonstrated that his last free testosterone level was slightly elevated. He otherwise denies any fever, chills, nausea, vomiting, shortness of breath, chest pain or pressure, syncope or presyncopal episodes. ROS Const Constitutional: No weight change, body ache, chills, sleep problems, fever(s), weakness, frequent falls, change in appetite, fatigue, headache(s), excessive sweating or snoring Eyes Eyes: No change in vision, eye pain, light sensitivity or blurry vision ENT ENT: No ear pain, tinnitus, nasal congestion, sore throat, headache(s), abnormal hearing or neck pain Resp Respiratory: Positive for cough (has taken his inhaler more often); no snoring, shortness of breath or wheezing Cardio Cardiology: No chest pain at rest, chest pain with exertion, shortness of breath, dyspnea on exertion, palpitations, orthopnea, lightheadedness or excessive sweating Gastro GI: No abdominal pain, change in bowel habits, constipation, diarrhea, vomiting, nausea/dyspepsia or cramping Musc Musculoskeletal: No neck pain, joint pain, back pain, limited range of motion, abnormal walking, numbness, tingling or muscle weakness Skin Skin: No redness, dry skin, lesions, wounds, rash or itching Neuro Neurology: No weakness, frequent falls, abnormal speech, dizziness, memory loss, headache(s), abnormal hearing, abnormal walking, numbness or tingling Psych Psychiatric: No change in appetite, No memory loss, No anxiety, No depression, No Thoughts of harming yourself/Others Endo Endocrine: No fatigue, cold intolerance, increased thirst/drinking, heat intolerance, flushing, increased hunger or excessive sweating Aller/Imm Allergy/Immunologic: No hives, seasonal allergy symptoms, wheezing or itchy eyes Cl/Lymp Hematologic/Lymphatic: No easy bleeding, easy bruising or enlarged lymph nodes Exam Const General: cooperative, comfortable, no acute distress Nutritional Appearance: average body habitus, well nourished Orientation: alert, oriented x3 Limitations: mental status not altered [facility] Head: normal to inspection Ears: hearing grossly normal bilaterally Nose: external nose normal Eyes General: appearance normal, both eyes and all related structures Neck Carotids: no bruits Resp Effort AND Inspection: normal respiratory effort, able to speak in complete sentences, normal respiratory pattern, symmetric chest movement, no audible wheezes, no cough Auscultation: Bilateral: Clear to Auscultation Cardio Palpation: normal PMI Rate: regular rate Heart Sounds: S1 normal, S2 normal, normal S1 and S2, no click, no gallops, no murmurs, no rubs Musc Musculoskeletal: No joint tenderness, decreased ROM or muscle weakness Skin General: no rashes or lesions noted, elasticity normal, turgor normal Lesions: no lesions Rashes: no rashes Neuro General: alert, awake, oriented x3, CN's II-XI intact bilaterally Speech: speech normal Gait: normal gait Motor: muscle tone normal throughout Extrem General: normal to inspection, normal gait, no edema, no pedal edema Psych Appearance: grossly normal Mental Status: mental status grossly normal Affect: normal affect Attitude: cooperative Thought Process: normal Assessment AND Plan 1. Benign essential hypertension I10 Plan Hypertension: Blood pressure is suboptimal at this time. Will make changes to current medication regimen which include the addition of hydrochlorothiazide 25 mg daily. Baseline labs reviewed. Educated patient on the potential side effects of the new medication and to keep a log of their blood pressures at home. Discussed risk factor reduction and lifestyle modifications. Discussed dietary changes that should be considered which include reducing the amount of sodium intake. Patient instructed to follow up in 6 weeks for hypertension follow up visit. Orders Orders: 2. BPH (benign prostatic hyperplasia) N40.0 Plan Patient's last PSA was over a year ago was elevated at 5, has not been checked since. The patient is on testosterone replacement therapy and therefore will recheck another PSA. 3. Hypogonadism, male E29.1 Plan Free testosterone has not been checked in over a year, we will recheck a level and make recommendations based on the level. This note was generated with [employer] dictation software. It may contain incorrect words, spelling, and punctuation that were not noted in checking the note before signing. 4. Hyperlipidemia E78.5 Plan He will continue with his current statin therapy at this time. Will recheck a lipid and hepatic panel. And make adjustments as necessary. Orders Orders: Plan Detail Other Orders Orders: Other Medications New: Coding Level of Care Code Off vis,est,level 3 Diagnoses Benign essential hypertension I10 BPH (benign prostatic hyperplasia) N40.0 Hypogonadism, male E29.1 Hyperlipidemia E78.5 09/10/17 1404 <Electronically signed by Huber HAQ> Date Huber HAQ Cosigner Signature: Date (if applicable) CC: PSA,TOTAL- DIAGNOSTIC Collected: 09/09/2017 Status: F Source: [place] 3:48 PM [facility] [place] TYPE CODE TESTS RESULT OUT OF RANGE REFERENCE UNITS LAB L501.9940 0.0-4.0 ng/mL PSA, Normal DIAGNOSTIC 1.22 Result Comment: This test was performed using the TPSA assay method for the [employer] chemistry system. Values obtained with different assay methods cannot be used interchangably. When changing PSA assays in the course of monitoring a patient, additional sequential testing should be carried out to confirm baseline values. Performed By: #### L501.9940 #### [facility] [address] [place], [place], [address] #### L3100.5310 #### [facility] (refer to report for specific site) refer to report for address and phone number TESTOSTERONE, TOTAL / Collected: 09/09/2017 Status: F Source: [facility] 3:48 PM [facility] Order Comment: Has Patient had X-rays with Contrast this admission? N TYPE CODE TESTS RESULT OUT OF RANGE REFERENCE UNITS LAB L3100.5320 264-916 ng/dL Normal 650 TESTOSTER,TO VADIM Result Comment: Adult male reference interval is based on a population of healthy nonobese males (BMI <30) between 19 and 39 years old. nola Clinton.al. JCEM 2017,102;6637-8199. PMID: [id number]. LAB L3100.5340 . ng/dL TESTOSTER,FREE Normal Test not performed Result Comment: Unable to calculate result since non-numeric result obtained for component test. LAB L3100.5360 . % Test not Normal TESTOSTER %FREE performed Result Comment: Quantity was not sufficient for analysis. Contacted Anitha at your facility 09/23/2017 Performed By: #### L501.9940 #### [facility] [address] [place], [address] #### L3100.5310 #### [facility] (refer to report for specific site) refer to report for address and phone number ALLERGIES ALLERGIES DATE TYPE / CODE NAME / CODE REACTION SEVERITY SOURCE 09/06/2018 Drug lisinopril/U97108 cough [place] Allergy/416 0658(RXNORM) [facility] 134063([facility] ED CT) Repository 09/06/2018 Drug niacin/[id number] Other Unknown [place] Allergy/416 (RXNORM) [facility] 762089([facility] ED CT) Repository 09/06/2018 Drug gemfibrozil/F0060 Pain in joints Unknown [place] Allergy/416 83643(RXNORM) [facility] 302361([facility] ED CT) Repository 09/06/2018 Drug clavulanic Nausea/Vom/Diar [place] Allergy/416 acid/[id number](R mikey [facility] 759922([facility] ED CT) Repository 09/06/2018 Drug amoxicillin/F0060 Nausea/Vom/Diar [place] Allergy/416 77259(RXNORM) mikey [facility] 852468([facility] ED CT) Repository 09/06/2018 Drug atorvastatin/F006 Pain in joints Unknown [place] Allergy/416 209759(RXNORM) [facility] 753044([facility] ED CT) Repository ENCOUNTERS ENCOUNTERS ADMIT/DISCHARGE ACCOUNT ADMITTING ENCOUNTER LOCATION SOURCE NUMBER CLASS 09/07/2018 [id number] Ambulatory [place] 8 [facility] Hospital ing:ICURoom: Repository [id number]: 1 09/06/2018 [id number] Ambulatory BMSBuilding:B Hali [address] [facility] Repository 09/06/2018/ [id number] Ambulatory BMSBuilding:B [place] [address] Repository 09/03/2018 [id number] Ambulatory Hali [place] 1 [facility] Hospital ing:LAB Repository 09/01/2018 [id number] Ambulatory [place] Hali 4 [facility] Hospital ing:LAB Repository 09/01/2018/ [id number] Ambulatory BMSBuilding:B [place] [address] Repository 08/30/2018 [id number] Ambulatory [place] Hali 1 [facility] Hospital ing:SL Repository 08/26/2018 [id number] Ambulatory Hali H[place] 4 [facility] Hospital ing:CT Repository 08/24/2018/ [id number] Ambulatory H[place] 8 6 [facility] Hospital ing:ENRoom: Repository AC14 08/20/2018 [id number] Ambulatory BMSBuilding:W [place] 6 [facility] Repository 08/20/2018 [id number] [place]ulatory [place] 1 [facility] Hospital ing:PSN Repository 08/06/2018/ [id number] Ambulatory BMSBuilding:B [place] 8 0 MS.[facility] Repository 08/04/2018/ [id number] Ambulatory BMSBuilding:B [place] 8 2 MS.[facility] [place] Repository 08/03/2018/ [id number] Ambulatory BMSBuilding:B [place] 8 5 [facility] Repository 07/19/2018 [id number] Ambulatory [place] 8 [facility] Hospital ing:SL Repository 06/24/2018 [id number] Ambulatory BMSBuilding:B Hali [address] Repository 06/24/2018 [id number] Ambulatory BMSBuilding:B [place] 2 MS.CF.[facility] Hospital Repository 06/24/2018 [id number] Ambulatory [place] Hali 1 [facility] Hospital ing:CVS Repository 06/08/2018/ [id number] Ambulatory BMSBuilding:B [place] 8 1 [facility] Hospital Repository 05/21/2018/ [id number] Ambulatory BMSBuilding:B [place] 8 9 MS.[facility] Hospital Repository 04/27/2018/ [id number] Ambulatory BMSBuilding:B [place] 8 8 [facility] Hospital Repository 04/20/2018 [id number] Ambulatory [place] 1 [facility] Hospital ing:MTLAB Repository 04/20/2018/ [id number] Ambulatory BMSBuilding:B [place] 8 1 [facility] Repository 03/30/2018/ [id number] Ambulatory BMSBuilding:B [place] 8 6 MS.[facility] Hospital Repository 02/22/2018/ [id number] Ambulatory BMSBuilding:B [place] 8 6 [facility] Hospital Repository 02/09/2018 [id number] Ambulatory BMSBuilding:B [place] 7 [facility] Repository 02/05/2018/ [id number] Ambulatory BMSBuilding:B [place] 8 4 [facility] Repository 02/02/2018/ [id number] Ambulatory BMSBuilding:B [place] 8 0 MS.[facility] Hospital Repository 01/04/2018/ [id number] Ambulatory BMSBuilding:B [place] 8 9 MS.[facility] Hospital Repository 11/20/2017/ [id number] Ambulatory BMSBuilding:B [place] 8 3 MS.[facility] Hospital Repository 10/23/2017 [id number] Ambulatory Hali Hali 6 [facility] Hospital ing:MTLAB Repository 10/19/2017/ [id number] Ambulatory BMSBuilding:B [place] 8 5 MS.[facility] Hospital Repository 09/23/2017 [id number] [place]ulatory [place] 9 [facility] Hospital ing:MTLAB Repository 09/09/2017 [id number] Ambulatory Hali [place] 0 [facility] ing:LAB.FUTUR Repository E 09/09/2017/ [id number] Ambulatory BMSBuilding:B [place] [address] [facility] Repository PAYERS PAYERS ENCOUNTER GUARANTOR PAYER SUBSCRIBER SOURCE 09/07/2018 IMANI Barry Primary IMANI PUENTES5 [place] Insurance:MEDICARE BROWNDOB: [facility] [place] PART A BPolicy Number: [id number] Hospital 05714Hyt: (437) [id number] Repository [phone] () Date:2018-09-03 09/07/2018 Secondary IMANI Lal Insurance:HUMANA BROWNDOB: [facility] [id number] Hospital Number: Repository [id number] Date:4686-71-52OQ [address] [address]VC: 09/07/2018 Tertiary NOT GIVENUNK [place] Insurance:SELF PAY [facility] Number: Effective Repository Date:2018-09-03 09/06/2018 IMANI Barry Primary IMANI PUENTES5 [place] Insurance:MEDICARE BROWNDOB: [facility] [place] PART A BPolicy Number: [id number] Hospital 55037Rpp: ([phone] [id number] Repository [phone] () Date:2018-09-06 09/06/2018 Secondary IMANI Lal Insurance:HUMANA BROWNDOB: [facility] [id number] Hospital Number: Repository [id number] Date:4256-70-68LL [address] [place] [address]CO: 09/06/2018 Tertiary NOT GIVENUNK [place] Insurance:SELF PAY [facility] Number: Effective Repository Date:2018-09-06 09/06/2018 IMANI Barry Primary IMANI PUENTES5 [place] Insurance:MEDICARE BROWNDOB: [facility] [place] [place] PART A BPolicy Number: [id number] Hospital 95263Pqr: ([phone] [id number] Repository [phone] () Date:2018-09-03 09/06/2018 Secondary IMANI Lal Insurance:HUMANA BROWNDOB: [facility] COMMERCIALPoly [id number] Hospital Number: Repository [id number] Date:0735-86-04PD[address] [address]RL: 09/06/2018 Tertiary NOT GIVENUNK [place] Insurance:SELF PAY [facility] Number: Effective Repository Date:2018-09-06 09/03/2018 IMANI W Primary IMANI MINER1445 [place] Insurance:MEDICARE BROWNDOB: [place], [place] PART A BPolicy Number: [id number] Hospital [id number]: 330 [id number] Repository [phone] () Date:2018-09-03 09/03/2018 Secondary IMANI Barry [place] Insurance:HUMANA BROWNDOB: [facility] [id number] Hospital Number: Repository [id number] Date:[id number] [address]MW: 09/03/2018 Tertiary NOT GIVENUNK [place] Insurance:SELF PAY [facility] Number: Effective Repository Date:2018-09-03 09/01/2018 IMANI W Primary IMANI [id number] [place] Insurance:MEDICARE BROWNDOB: [place] PART A BPolicy Number: [id number] Hospital 905[address]Ynh: 330 [id number] Repository [phone] () Date:2018-09-01 09/01/2018 Secondary IMANI Barry Hali Insurance:HUMANA BROWNDOB: [facility] [id number] Hospital Number: Repository [id number] Date:7793-01-05OX [address] [address]WL: 09/01/2018 Tertiary NOT GIVENUNK [place] Insurance:SELF PAY [facility] Number: Effective Repository Date:2018-09-01 09/01/2018 IMANI Barry Primary IMANI MINER1445 [place] Insurance:MEDICARE [place]OWNDOB: [place] PART A BPolicy Number: [id number] Hospital [address]Ddl: 330 [id number] Repository [phone] (HP) Date:2018-09-01 09/01/2018 Secondary IMANI Lal Insurance:HUMANA BROWNDOB: [facility] [id number] Hospital Number: Repository [id number] Date:6734-25-99BH [address] [address]MI: 09/01/2018 Tertiary NOT GIVENUNK [place] Insurance:SELF PAY [facility] Number: Effective Repository Date:2018-09-01 08/30/2018 IMANI Barry Primary IMANI [id number] [place] Insurance:MEDICARE BROWNDOB: [facility] [place] PART A BPolicy Number: [id number] Hospital 120[address]Ran: 330 [id number] Repository [phone] (HP) Date:2018-08-05 08/30/2018 Secondary IMANI Lal Insurance:HUMANA BROWNDOB: [facility] [id number] Hospital Number: Repository [id number] Date:0531-36-03JB [address] [address]JR: 08/30/2018 Tertiary NOT GIVENUNK [place] Insurance:SELF PAY [facility] Number: Effective Repository Date:2018-08-05 08/26/2018 IMANI Barry Primary IMANI [id number] [place] Insurance:MEDICARE BROWNDOB: [facility] [place] PART A BPolicy Number: [id number] Hospital 105[address]Fvx: 330 [id number] Repository [phone] (HP) Date:2018-08-16 08/26/2018 Secondary IMANI Lal Insurance:HUMANA MORGANDOB: [facility] [id number] Hospital Number: Repository [id number] Date:7010-87-23KW [address] [address]AX: 08/26/2018 Tertiary NOT GIVENUNK [place] Insurance:SELF PAY [facility] Number: Effective Repository Date:2018-08-16 08/24/2018 IMANI Barry Primary IMANI PUENTES5 [place] Insurance:MEDICARE BROWNDOB: [place] PART A BPolicy Number: [id number] Hospital [address]Xpo: 330 [id number] Repository [phone] () Date:2018-08-06 08/24/2018 Secondary IMANI Barry [place] Insurance:HUMANA BROWNDOB: [facility] [id number] Hospital Number: Repository [id number] Date:0198-95-19VS[address] [address]WL: 08/24/2018 Tertiary NOT GIVENUNK [place] Insurance:SELF PAY [facility] Number: Effective Repository Date:2018-08-06 08/20/2018 IMANI Barry Primary IMANI [id number] [place] Insurance:MEDICARE BROWNDOB: [facility] [place] PART A BPolicy Number: [id number] Hospital [address]Ubn: 330 [id number] Repository [phone] () Date:2018-08-04 08/20/2018 Secondary IMANI Barry [place] Insurance:HUMANA BROWNDOB: [facility] [id number] Hospital Number: Repository [id number] Date:6770-77-60PQ [address] [address]WK: 08/20/2018 Tertiary NOT GIVENUNK [place] Insurance:SELF PAY [facility] Number: Effective Repository Date:2018-08-20 08/20/2018 IMANI Barry Primary IMANI PUENTES5 [place] Insurance:MEDICARE BROWNDOB: [facility] [place] PART A BPolicy Number: [id number] Hospital 52019Lrr: (577) [id number] Repository [phone] (HP) Date:2018-08-04 08/20/2018 Secondary IMANI Barry [place] Insurance:HUMANA BROWNDOB: Community COMMERCIALPolicy [id number] Hospital Number: Repository [id number] Date:7177-95-41FP [address] [address]KI: 08/20/2018 Tertiary NOT GIVENUNK [place] Insurance:SELF PAY [facility] Number: Effective Repository Date:2018-08-04 08/06/2018 IMANI W Primary IMANI PUENTES5 [place] Insurance:MEDICARE BROWNDOB: [place] PART A BPolicy Number: [id number] Hospital 38479Egm: [phone] [id number] Repository [phone] () Date:2018-07-19 08/06/2018 Secondary IMANI Barry [place] Insurance:HUMANA BROWNDOB: [facility] COMMERCIALPolicy [id number] Hospital Number: Repository [id number] Date:3273-46-61UA [address] [address]DF: 08/06/2018 Tertiary NOT GIV[place]UNK [place] Insurance:SELF PAY [facility] Number: Effective Repository Date:2018-08-04 08/04/2018 IMANI Barry Primary IMANI PUENTES5 [place] Insurance:MEDICARE BROWNDOB: [place] PART A BPolicy Number: [id number] Hospital [address]08[address]Izt: [phone] [id number] Repository [phone] () Date:2018-07-08 08/04/2018 Secondary IMANI Lal Insurance:HUMANA BROWNDOB: [facility] COMMERCIALPolicy [id number] Hospital Number: Repository [id number] Date:2470-07-06BM [address] [address]CC: 08/04/2018 Tertiary NOT [place]IV[place]UNK [place] Insurance:SELF PAY [facility] Number: Effective Repository Date:2018-07-29 08/03/2018 IMANI W Primary IMANI PUENTES5 [place] Insurance:MEDICARE BROWNDOB: [place] PART A BPolicy Number: [id number] Hospital 25360Hth: [phone] [id number] Repository [phone] () Date:2018-04-27 08/03/2018 Secondary IMANI Barry [place] Insurance:HUMANA BROWNDOB: [facility] [id number] Hospital Number: Repository [id number] Date:3724-27-24OK [address] [address]SC: 08/03/2018 Tertiary NOT GIVENUNK [place] Insurance:SELF PAY [facility] Hospital Number: Effective Repository Date:2018-08-03 07/19/2018 IMANI W Primary IMANI PUENTES5 [place] Insurance:MEDICARE BROWNDOB: [place] PART A BPolicy Number: [id number] Hospital [address]Azt: 330 [id number] Repository [phone] () Date:2018-06-28 07/19/2018 Secondary IMANI Barry [place] Insurance:HUMANA BROWNDOB: [facility] [id number] Hospital Number: Repository [id number] Date:8302-77-16[place] [address]WP: 07/19/2018 Tertiary NOT GIVENUNK [place] Insurance:SELF PAY [facility] Number: Effective Repository Date:2018-06-28 06/24/2018 IMANI W Primary IMANI PUENTES5 [place] Insurance:MEDICARE BROWNDOB: [place] PART A BPolicy Number: [id number] Hospital 447[address]Yvt: ([phone] [id number] Repository [phone] () Date:2018-06-08 06/24/2018 Secondary IMANI W [place] Insurance:HUMANA BROWNDOB: [facility] COMMERCIALPolicy [id number] Hospital Number: Repository [id number] Date:8541-95-42AP [address] [address]KR: 06/24/2018 Tertiary NOT GIVENUNK [place] Insurance:SELF PAY [facility] Hospital Number: Effective Repository Date:2018-06-24 06/24/2018 IMANI Barry Primary IMANI MAR[place] Insurance:[place] A BPolicy Number: [id number] Hospital [address]Ldu: (353) [id number] Repository [phone] () Date:2018-06-08 06/24/2018 Secondary IMANI Barry [place] Insurance:HUMANA BROWNDOB: Community COMMERCIALPolicy [id number] Hospital Number: Repository [id number] Date:1044-22-64ZJ[address] [address]WX: 06/24/2018 Tertiary NOT GIVENUNK [place] Insurance:SELF PAY [facility] Hospital Number: Effective Repository Date:2018-06-24 06/24/2018 IMANI Barry Primary IMANI MARSH Insurance:MEDICARE [place] PART A BPolicy Number: [id number] Hospital [address]Edc: ([phone]) [id number] Repository [phone] () Date:2018-06-08 06/24/2018 Secondary IMANI [place] Insurance:HUMANA BROWNDOB: Community COMMERCIALPolicy [id number] Hospital Number: Repository [id number] Date:3420-26-32XZ[address] [address]KA: 06/24/2018 Tertiary NOT [place]IV[place]UNK [place] Insurance:SELF PAY [facility] Hospital Number: Effective Repository Date:2018-06-08 06/08/2018 IMANI Barry Primary IMANI MARSH Insurance:MEDICARE [place]OB[place] PART A BPolicy Number: [id number] Hospital [address]Ogu: ([phone]) [id number] Repository [phone] () Date:2018-06-01 06/08/2018 Secondary IMANI Barry [place] Insurance:HUMANA BROWNDOB: Community COMMERCIALPolicy [id number] Hospital Number: Repository [id number] Date:1347-73-41HE[address] [address]TD: 06/08/2018 Tertiary NOT [place] Insurance:SELF PAY [facility] Number: Effective Repository Date:2018-06-08 05/21/2018 IMANI Barry Primary IMANI PUENTES5 [place] Insurance:MEDICARE [place]OB[place] PART A BPolicy Number: [id number] Hospital [address]Eon: [phone]) [id number] Repository [phone] () Date:2018-05-21 05/21/2018 Secondary IMANI Barry [place] Insurance:HUMANA BROWNDOB: [facility] COMMERCIALPrime Healthcare Servicesy [id number] Hospital Number: Repository [id number] Date:0984-69-83XB[address]46[address]WP: 05/21/2018 Tertiary NOT [place]K [place] Insurance:SELF PAY [facility] Number: Effective Repository Date:2018-05-21 04/27/2018 IMANI W Primary IMANI PUENTES5 [place] Insurance:MEDICARE [place]OB[place] PART A BPolicy Number: [id number] Hospital [address]Ziu: [phone] [id number] Repository [phone] () Date:2018-03-30 04/27/2018 Secondary IMANI Barry [place] Insurance:HUMANA BROWNDOB: [facility] COMMERCIALPolicy [id number] Hospital Number: Repository [id number] Date:4631-65-62VB[address] [address]AJ: 04/27/2018 Tertiary NOT GIVENUNK [place] Insurance:SELF PAY [facility] Hospital Number: Effective Repository Date:2018-04-27 04/20/2018 IMANI W Primary IMANI PUENTES5 [place] Insurance:MEDICARE [place]OB[place] PART A BPolicy Number: [id number] Hospital [address]Ljc: ([phone] [id number] Repository [phone] () Date:2018-04-20 04/20/2018 Secondary IMANI Lal Insurance:HUMANA BROWNDOB: [facility] COMMERCIALPolicy [id number] Hospital Number: Repository [id number] Date:3399-94-75CQ [address] [address]BJ: 04/20/2018 Tertiary NOT GIVENUNK [place] Insurance:SELF PAY [facility] Number: Effective Repository Date:2018-04-20 04/20/2018 IMANI Barry Primary IMANI MINER1445 [place] Insurance:MEDICARE BROWNDOB: [facility] [place] PART A BPolicy Number: [id number] Hospital [address]Goj: (124) [id number] Repository [phone] () Date:2018-04-20 04/20/2018 Secondary IMANI Barry [place] Insurance:HUMANA BROWNDOB: [facility] [id number] Hospital Number: Repository [id number] Date:3005-33-66BL [address] [address]QF: 04/20/2018 Tertiary NOT [place]K [place] Insurance:SELF PAY [facility] Number: Effective Repository Date:2018-04-20 03/30/2018 IMANI Barry Primary IMANI MINER1445 [place] Insurance:MEDICARE BROWNDOB: [facility] [place] PART A BPolicy Number: [id number] Hospital [address]Hlx: [phone] [id number] Repository [phone] () Date:2018-03-29 03/30/2018 Secondary IMANI Barry [place] Insurance:HUMANA MORGANDOB: [facility] Centeric [id number] Hospital Number: Repository [id number] Date:1117-10-66BY[address] [address]HH: 03/30/2018 Tertiary NOT GIVENUNK [place] Insurance:SELF PAY [facility] Number: Effective Repository Date:2018-03-30 02/22/2018 IMANI W Primary IMANI MINER1445 [place] Insurance:MEDICARE BROWNDOB: [facility] [place] PART A BPolicy Number: [id number] Hospital [address]Fhw: [id number] Repository [phone] Date:2017-11-20 0-7 (HP) 02/22/2018 Secondary IMANI Barry [place] Insurance:HUMANA BROWNDOB: [facility] [id number] Hospital Number: Repository [id number] Date:5303-57-09MD [address] [place] [address]KM: 02/22/2018 Tertiary NOT GIVENUNK [place] Insurance:SELF PAY [facility] Number: Effective Repository Date:2018-03-04 02/09/2018 IMANI W Primary IMANI PUENTES5 [place] Insurance:MEDICARE BROWNDOB: [place] PART A BPolicy Number: [id number] Hospital [address]Bug: [id number] Repository [phone] Date:2018-02-05 0-7 (HP) 02/09/2018 Secondary IMANI Barry [place] Insurance:HUMANA BROWNDOB: [facility] [id number] Hospital Number: Repository [id number] Date:9144-22-04AD[address] [address]EI: 02/09/2018 Tertiary NOT GIVENUNK [place] Insurance:SELF PAY [facility] Number: Effective Repository Date:2018-02-05 02/05/2018 IMANI W Primary IMANI PUENTES5 [place] Insurance:MEDICARE BROWNDOB: [place] PART A BPolicy Number: [id number] Hospital [address]Onc: [id number] Repository [phone] Date:2018-02-05 0-7 (HP) 02/05/2018 Secondary IMANI Barry [place] Insurance:HUMANA BROWNDOB: [facility] [id number] Hospital Number: Repository [id number] Date:7097-75-72TL[address] [address]MO: 02/05/2018 Tertiary NOT [place]IV[place]UNK [place] Insurance:SELF PAY [facility] Hospital Number: Effective Repository Date:2018-02-05 02/02/2018 IMANI Barry Primary IMANI MARSH Insurance:MEDICARE [place]OB[place] BPolicy Number: [id number] Hospital [address]Dhq: [id number] Repository [phone] Date:2018-02-01 0-7 (HP) 02/02/2018 Secondary IMANI Barry [place] Insurance:HUMANA BROWNDOB: [facility] [id number] Hospital Number: Repository [id number] Date:5963-11-33YM [address] [address]TM: 02/02/2018 Tertiary NOT GIVENUNK [place] Insurance:SELF PAY [facility] Number: Effective Repository Date:2018-02-02 01/04/2018 IMANI Barry Primary IMANI PUENTES5 [place] Insurance:MEDICARE [place]OB[place] BPolicy Number: [id number] Hospital [address]Dou: [id number] Repository [phone] Date:2018-01-04 0-7 (HP) 01/04/2018 Secondary IMANI Barry [place] Insurance:HUMANA BROWNDOB: Community COMMERCIALPolicy [id number] Hospital Number: Repository [id number] Date:2708-78-06FW [address] [address]MN: 01/04/2018 Tertiary NOT GIVENUNK [place] Insurance:SELF PAY [facility] Number: Effective Repository Date:2018-01-04 11/20/2017 IMANI Barry Primary IMANI PUENTES5 [place] Insurance:MEDICARE [place]OB[place] BPolicy Number: [id number] Hospital [address]Tyi: [id number] Repository [phone] Date:2017-10-19 0-7 (HP) 11/20/2017 Secondary IMANI Barry [place] Insurance:HUMANA BROWNDOB: Community COMMERCIALPolicy [id number] Hospital Number: Repository [id number] Date:1845-86-95VX [address] [address]KL: 11/20/2017 Tertiary NOT [place]IV[place]K [place] Insurance:SELF PAY [facility] Hospital Number: Effective Repository Date:2017-10-19 10/23/2017 IMANI W Primary IMANI MARSH Insurance:MEDICARE [place] BPolicy Number: [id number] Hospital [address]Hjy: [id number] Repository [phone] Date:2017-10-23 0-7 (HP) 10/23/2017 Secondary IMANI Barry [place] Insurance:HUMANA BROWNDOB: Community COMMERCIALPolicy [id number] Hospital Number: Repository [id number] Date:5348-47-62JF [address] [address]NO: 10/23/2017 Tertiary NOT GIVENUNK [place] Insurance:SELF PAY [facility] Hospital Number: Effective Repository Date:2017-10-23 10/19/2017 IMANI Barry Primary IMANI PUENTES5 [place] Insurance:MEDICARE [place]OB[place] BPolicy Number: [id number] Hospital 86322Utz: [id number] Repository [phone] Date:2017-08-22 0-7 (HP) 10/19/2017 Secondary IMANI Barry [place] Insurance:HUMANA BROWNDOB: Community COMMERCIALPolicy [id number] Hospital Number: Repository [id number] Date:2673-05-56UO [address] [address]LJ: 10/19/2017 Tertiary NOT GIV[place]UNK [place] Insurance:SELF PAY [facility] Hospital Number: Effective Repository Date:2017-08-22 09/23/2017 IMANI W Primary IMANI PUENTES5 [place] Insurance:MEDIC[place] BROWNDOB: [place] PART A BPolicy Number: [id number] Hospital 727[address]Cyd: [id number] Repository [phone] Date:2017-09-23 0-7 (HP) 09/23/2017 Secondary IMANI Barry [place] Insurance:HUMANA BROWNDOB: [facility] [id number] Hospital Number: Repository [id number] Date:4892-44-46GA[address] [address]ZI: 09/23/2017 Tertiary NOT GIVENUNK [place] Insurance:SELF PAY [facility] Number: Effective Repository Date:2017-09-23 09/09/2017 IMANI W Primary IMANI PUENTES5 [place] Insurance:MEDIC[place] BROWNDOB: [place] PART A BPolicy Number: [id number] Hospital [address]Nlk: [id number] Repository [phone] Date:2017-07-23 0-7 (HP) 09/09/2017 Secondary IMANI Barry [place] Insurance:HUMANA BROWNDOB: [facility] [id number] Hospital Number: Repository [id number] Date:7392-03[place] [address]WP: 09/09/2017 Tertiary NOT [place]IV[place]UNK [place] Insurance:SELF PAY [facility] Number: Effective Repository Date:2017-07-23 09/09/2017 IMANI W Primary IMANI MARSH Insurance:MEDICARE BROWNDOB: [place] PART A BPolicy Number: [id number] Hospital 28[address]Rdh: [id number] Repository [phone] Date:2017-09-08 0-7 (HP) 09/09/2017 Secondary IMANI Barry [place] Insurance:HUMANA BROWNDOB: [facility] COMMERCIALPolicy [id number] Hospital Number: Repository [id number] Date:0633[place]01[place] [address]WP: 09/09/2017 Tertiary NOT GIVENUNK [place] Insurance:SELF PAY [facility]: Effective Repository Date:2017-09-08
== END ==
PROVIDERS: Family Provider Internal Medicine; PCP Internal Medicine; Referring Provider Nurse Practitioner Acute Care; Visit Provider Nurse Practitioner Acute Care
DX: R06.09 Other forms of dyspnea (principal)
CPT/HCPCS: 94060; 94726; 94729

== ENCOUNTER 2018-08-24 06:54 | Day surgery (SDC) | payer MEDICARE, OTHER, SELFPAY ==
[2018-08-06 14:02] VITALS: BMI 28.5
[2018-08-24] VITALS (8 sets, daily range): BP systolic 94–117; BP diastolic 52–82; PULSE 67–78; RESP 14–16; TEMP 36–36.2; O2SAT 96–98; BMI 27.7
--- NOTE | 2018-08-24 08:31 | OP.ENDO_ITS ---
Patient Name: Chapo Miner Procedure Date: 08/24/2018 8:09 AM Date of : 1940 Age: 77 Procedure: Colonoscopy Indications: Screening for colorectal malignant neoplasm Providers: Duane Cummings MD Referring MD: Duane Cummings MD Medicines: See the Anesthesia note for documentation of the administered medications Patient Profile: Last Colonoscopy: August 2008. Complications: No immediate complications. Procedure: Pre-Anesthesia Assessment: - Prior to the procedure, a History and Physical was performed, and patient medications and allergies were reviewed. The patient's tolerance of previous anesthesia was also reviewed. The risks and benefits of the procedure and the sedation options and risks were discussed with the patient. All questions were answered, and informed consent was obtained. Prior Anticoagulants: The patient has taken no previous anticoagulant or antiplatelet agents. ASA Grade Assessment: II - A patient with mild systemic disease. After reviewing the risks and benefits, the patient was deemed in satisfactory condition to undergo the procedure. After I obtained informed consent, the scope was passed under direct vision. Throughout the procedure, the patient's blood pressure, pulse, and oxygen saturations were monitored continuously. The pediatric colonoscope was introduced through the anus and advanced to the ileocolonic anastomosis. The colonoscopy was performed without difficulty. The patient tolerated the procedure well. The quality of the bowel preparation was good. Ileocolonic anastomosis were photographed. Scope In: 8:15:42 AM Scope Withdrawal Time 0 hours 6 minutes 2 seconds Scope Out: 8:23:58 AM Total Procedure Duration Time 0 hours 8 minutes 16 seconds Findings: Hemorrhoids were found on perianal exam. The digital rectal exam findings include enlarged prostate. Multiple diverticula were found in the sigmoid colon and descending colon. There was evidence of a prior end-to-end ileo-colonic anastomosis at the hepatic flexure. This was patent and was characterized by healthy appearing mucosa. The exam was otherwise without abnormality. Impression: - Hemorrhoids found on perianal exam. - Enlarged prostate found on digital rectal exam. - Diverticulosis in the sigmoid colon and in the descending colon. - Patent end-to-end ileo-colonic anastomosis, characterized by healthy appearing mucosa. - The examination was otherwise normal. - No specimens collected. Recommendation: - Discharge patient to home. - Resume previous diet. - Continue present medications. - Repeat colonoscopy in 10 years for screening purposes. Procedure Code(s): --- Professional --- 15101, Colonoscopy, flexible; diagnostic, including collection of specimen(s) by brushing or washing, when performed (separate procedure) Diagnosis Code(s): --- Professional --- Z12.11, Encounter for screening for malignant neoplasm of colon K64.9, Unspecified hemorrhoids Z98.0, Intestinal bypass and anastomosis status K57.30, Diverticulosis of large intestine without perforation or abscess without bleeding N40.0, Benign prostatic hyperplasia without lower urinary tract symptoms CPT copyright 2017 [employer]. All rights reserved. The codes documented in this report are preliminary and upon field superintendent review may be revised to meet current compliance requirements. Duane Cummings MD 08/24/2018 8:30:35 AM This report has been signed electronically. Number of Addenda: 0 Note Initiated On: 08/24/2018 8:09 AM
== END 2018-08-24 09:27 | disposition home or self-care (01) ==
LOC: EN 06:54 → AC 06:56
PROVIDERS: Family Provider Internal Medicine; PCP Internal Medicine; Referring Provider Surgery; Visit Provider Surgery
PROC: 0DJD8ZZ Inspection of Lower Intestinal Tract, Via Natural or Artificial Opening Endoscopic (ICD-10-PCS; CPT 45378; principal; 2018-08-24 07:55)
DX: Z12.11 Encounter for screening for malignant neoplasm of colon (principal); K64.9 Unspecified hemorrhoids; N40.0 Benign prostatic hyperplasia without lower urinary tract symptoms; K57.30 Diverticulosis of large intestine without perforation or abscess without bleeding; Z98.0 Intestinal bypass and anastomosis status; E03.9 Hypothyroidism, unspecified; I25.10 Atherosclerotic heart disease of native coronary artery without angina pectoris; I10 Essential (primary) hypertension; K21.9 Gastro-esophageal reflux disease without esophagitis; E78.5 Hyperlipidemia, unspecified; K50.90 Crohn's disease, unspecified, without complications
CPT/HCPCS: G0121; J7120

== ENCOUNTER → 2018-08-26 13:23 | Outpatient (CLI) | payer MEDICARE, OTHER, SELFPAY ==
[2018-08-06 14:02] VITALS: BMI 28.5
[2018-08-24 07:30] VITALS: BMI 27.7
--- NOTE | 2018-08-26 13:28 | CT_ITS ---
CT scan of the temporal bones CLINICAL HISTORY: Hearing loss. PROCEDURE: The study was done without contrast and presented in 3 planes. FINDINGS: Right temporal bone: There is a soft tissue density deep within the external auditory canal consistent with the. The right tympanic membrane is intact. The ossicular structures in the middle ear are normal. There is no evidence of cholesteatoma. The inner ear and the vestibulocochlear apparatus are normal. There is no evidence of a cerebellopontine angle mass. Left temporal bone: The left occipital external auditory canal is normal. The left tympanic membrane is intact. The scutum is normal. The ossicular structures in the middle ear are normal. There is no evidence of cholesteatoma. The vestibulocochlear apparatus on both sides are normal. The left internal auditory canal is normal. CT/Orb Sella Post Fossa Ear w/o IMPRESSION: No evidence of any sensorineural hearing loss. A soft tissue attenuation in the distal right external auditory canal. This may contribute to a conductive hearing loss on the right side. Electronically Signed: Luca Arteaga MD at 4:55 EST Tel , Service support ,
== END ==
PROVIDERS: Family Provider Internal Medicine; PCP Internal Medicine; Referring Provider Otolaryngology; Visit Provider Otolaryngology
DX: H91.90 Unspecified hearing loss, unspecified ear (principal)
CPT/HCPCS: 70480

== ENCOUNTER → 2018-08-30 20:00 | Outpatient (CLI) | payer MEDICARE, OTHER, SELFPAY ==
[2018-08-04 13:50] VITALS: BMI 28.5
== END ==
PROVIDERS: Family Provider Internal Medicine; PCP Internal Medicine; Referring Provider Nurse Practitioner Acute Care; Visit Provider Nurse Practitioner Acute Care
DX: G47.33 Obstructive sleep apnea (adult) (pediatric) (principal)
CPT/HCPCS: 95811

== ENCOUNTER → 2018-09-01 10:18 | Outpatient (CLI) | payer MEDICARE, OTHER, SELFPAY ==
[2018-08-24 07:30] VITALS: BMI 27.7
[2018-09-01 11:57] LABS: Anion Gap 8 (5-15); BUN 17 mg/dL (7-18); BUN/Creat Ratio 15.3 RATIO (10-20); Calcium,Total 8.9 mg/dL (8.5-10.1); Chloride 98 mmol/L (98-107); Creatinine, Serum 1.11 mg/dL (0.70-1.30); EST Glomerular Filtration Rate 68 mL/min (>60); Est Glom Filt Rate - Afr Amer 83 mL/min (>60); Glucose 100 mg/dL (74-106); Magnesium 2.1 mg/dL (1.6-2.6); Potassium 4.1 mmol/L (3.5-5.1); Sodium Level 136 mmol/L (136-145); T4 Total, Thyroxin 12.3 ug/dL (4.5-12.1); Thyroid Stim Hormone (TSH) 0.78 uIU/mL (0.358-3.74)
--- OUTSIDE RECORDS SUMMARY | 2018-10-18 12:04 | XMS RPT_ITS ---
:1940 Author Organization OHIP Support Name Relationship Address Phone MORGAN, PAT Unavailable [address] + [place] [address] R Unavailable Unavailable Unavailable BROWN, PAT Unavailable [phone] [place] [address] R Unavailable Unavailable Unavailable BROWN, PAT Unavailable [phone] [place] [address] R Unavailable Unavailable Unavailable BROWN, PAT Unavailable [phone] [place] [address] R Unavailable Unavailable Unavailable BROWN, PAT Unavailable [phone] [place] [address] R Unavailable Unavailable Unavailable BROWN, PAT Unavailable [phone] [place] [address] R Unavailable Unavailable Unavailable BROWN, PAT Unavailable [phone] [place] [address] R Unavailable Unavailable Unavailable BROWN, PAT Unavailable [phone] [place] [address] R Unavailable Unavailable Unavailable BROWN, PAT Unavailable [phone] [place] [address] R Unavailable Unavailable Unavailable BROWN, PAT Unavailable [phone] [place] [address] R Unavailable Unavailable Unavailable BROWN, PAT Unavailable [phone] [place] [address] R Unavailable Unavailable Unavailable BROWN, PAT Unavailable [phone] [place] [address] R Unavailable Unavailable Unavailable BROWN, PAT Unavailable [phone] [place] [address] R Unavailable Unavailable Unavailable BROWN, PAT Unavailable [phone] [place] [address] R Unavailable Unavailable Unavailable BROWN, PAT Unavailable [phone] [place] [address] R Unavailable Unavailable Unavailable BROWN, PAT Unavailable [address] + [place] [address] R Unavailable Unavailable Unavailable BROWN, PAT Unavailable [address] + [place] [address] R Unavailable Unavailable Unavailable BROWN, PAT Unavailable [address] + [place] [address] R Unavailable Unavailable Unavailable BROWN, PAT Unavailable [address] + [place] [address] R Unavailable Unavailable Unavailable BROWN, PAT Unavailable [address] + [place] [address] R Unavailable Unavailable Unavailable BROWN, PAT Unavailable [address] + [place] [address] R Unavailable Unavailable Unavailable BROWN, PAT Unavailable [address] + [place] [address] R Unavailable Unavailable Unavailable BROWN, PAT Unavailable [address] + [place] [address] R Unavailable Unavailable Unavailable BROWN, PAT Unavailable [address] + [place] [address] R Unavailable Unavailable Unavailable BROWN, PAT Unavailable [address] + [place] [address] R Unavailable Unavailable Unavailable BROWN, PAT Unavailable [address] + [place] [address] R Unavailable Unavailable Unavailable BROWN, PAT Unavailable [address] + [place] [address] R Unavailable Unavailable Unavailable BROWN, PAT Unavailable [address] + [place] [address] R Unavailable Unavailable Unavailable BROWN, PAT Unavailable [address] + [place] [address] R Unavailable Unavailable Unavailable BROWN, PAT Unavailable [address] + [place] [address] R Unavailable Unavailable Unavailable BROWN, PAT Unavailable [address] + [place] [address] R Unavailable Unavailable Unavailable BROWN, PAT Unavailable [address] + [place] [address] R Unavailable Unavailable Unavailable BROWN, PAT Unavailable [address] + [place] [address] R Unavailable Unavailable Unavailable BROWN, PAT Unavailable [phone] [place] [address] R Unavailable Unavailable Unavailable BROWN, PAT Unavailable [phone] [place] [address] R Unavailable Unavailable Unavailable BROWN, PAT Unavailable [phone] [place] [address] R Unavailable Unavailable Unavailable BROWN, PAT Unavailable [phone] [place] [address] R Unavailable Unavailable Unavailable BROWN, PAT Unavailable [phone] [place] [address] R Unavailable Unavailable Unavailable BROWN, PAT Unavailable [phone] [place] [address] R Unavailable Unavailable Unavailable BROWN, PAT Unavailable [phone] [place] [address] R Unavailable Unavailable Unavailable BROWN, PAT Unavailable [phone] [place] [address] R Unavailable Unavailable Unavailable Care Team Providers Name Role Phone Kike Eaton Attending Unavailable Oleghe, Efewongbe Referring Unavailable Kike Eaton Attending Unavailable Angelito Kike Referring Unavailable Oleghe, Efewongbe Primary Care Unavailable Kkie Eaton Attending Unavailable Angelito Kike Referring Unavailable Oleghe, Efewongbe Primary Care Unavailable Valdemar Germain Consulting Unavailable Stephanie Lydia Consulting Unavailable Jese Osorio Attending Unavailable Stephanie Lydia Referring Unavailable EatonKike Attending Unavailable Oleghe, Efewongbe Referring Unavailable Kike Eaton Attending Unavailable Angelito Kike Referring Unavailable Oleghe, Efewongbe Primary Care Unavailable Nel Mcarthur Attending Unavailable Kike Eaton Attending Unavailable Kike Eaton Referring Unavailable Oleghe, Efewongbe Primary Care Unavailable Kike Eaton Consulting Unavailable Oleghe, Efewongbe Primary Care Unavailable Kike Haas Attending Unavailable Margy Taylor Attending Unavailable Candice Galvez Attending Unavailable Oleghe, Efewongbe Referring Unavailable Kike Eaton Attending Unavailable Kike Eaton Referring Unavailable Kike Eaton Attending Unavailable Angelito Kike Referring Unavailable Kike Eaton Attending Unavailable Kike [...] Oleghe, Efewongbe Primary Care Unavailable Huber Solano ASBESTOS HANDLER-C Attending Unavailable Oleghe, Efewongbe Referring Unavailable Oleghe, Efewongbe Primary Care Unavailable Oleghe, Efewongbe Attending Unavailable Oleghe, Efewongbe Referring Unavailable Oleghe, Efewongbe Primary Care Unavailable Oleghe, Efewongbe Attending Unavailable Oleghe, Efewongbe Referring Unavailable Oleghe, Efewongbe Primary Care Unavailable Huber Solano ASBESTOS HANDLER-C Attending Unavailable Oleghe, Efewongbe Referring Unavailable Oleghe, Efewongbe Primary Care Unavailable Huber Solano ASBESTOS HANDLER-C Attending Unavailable Oleghe, Efewongbe Referring Unavailable Oleghe, Efewongbe Primary Care Unavailable Kike Eaton Attending Unavailable Oleghe, Efewongbe Referring Unavailable Oleghe, Efewongbe Primary Care Unavailable Kike Eaton Attending Unavailable Kike Eaton Referring Unavailable Oleghe, Efewongbe Primary Care Unavailable Duane Cummings Attending Unavailable Kike Eaton Attending Unavailable Kike Eaton [...] Unavailable Oleghe, Efewongbe Referring Unavailable Huber Solano ASBESTOS HANDLER-C Attending Unavailable Oleghe, Efewongbe Referring Unavailable Duane Cummings Attending Unavailable Oleghe, Efewongbe Referring Unavailable Lydia Brown Attending Unavailable Stephanie, Lydia Referring Unavailable Oleghe, Efewongbe Primary Care Unavailable CeDuane ly Attending Unavailable CeDuane ly Referring Unavailable Oleghe, Efewongbe Primary Care Unavailable Valdemar Germain Attending Unavailable Valdemar Germain Referring Unavailable Oleghe, Efewongbe Primary Care Unavailable Lydia Brown Attending Unavailable Brown, Lydia Referring Unavailable Oleghe, Efewongbe Primary Care Unavailable PROBLEMS PROBLEMS DATE TYPE CONDITION / CODE ATTENDING STATUS SOURCE 10/11/2018 Unknown I49.3 - Ventricular Kike Eaton Active [facility] depolarization / Hospital I49.3(ICD-10) Repository 10/11/2018 Unknown I10 - Essential Kike Eaton Active [facility] (primary) Community hypertension / Hospital I10(ICD-10) Repository 10/11/2018 Unknown I25.10 - Kike Eaton Active [facility] Atherosclerotic heart [facility] disease of [facility] coronary artery Repository without angina pectoris / I25.10(ICD-10) 10/11/2018 Unknown E78.5 - Kike Eaton Active [facility] Hyperlipidemia, Community unspecified / Hospital E78.5(ICD-10) Repository 10/11/2018 Unknown Z95.5 - Presence of Kike Eaton Active [facility] coronary angioplasty Community implant and graft / Hospital Z95.5(ICD-10) Repository 09/30/2018 Unknown R07.9 - Chest pain, Kike Eaton Active [facility] unspecified / Community R07.9(ICD-10) Hospital Repository 09/01/2018 Unknown R00.2 - Palpitations Kike Eaton Active [facility] / R00.2(ICD-10) Community Hospital Repository 09/01/2018 Unknown E03.9 - Kike Eaton Active [facility] Hypothyroidism, Community unspecified / Hospital E03.9(ICD-10) Repository 08/30/2018 Unknown G47.33 - Obstructive Stephanie Active [facility] sleep apnea (adult) [facility] (pediatric) / Hospital G47.33(ICD-10) Repository 10/05/2018 Unknown Z12.11 - Encounter Cebul, Duane Active [facility] for screening for Community malignant neoplasm of Hospital colon / Repository Z12.11(ICD-10) 10/05/2018 Unknown K64.9 - Unspecified CebulDuane Active [facility] hemorrhoids / Community K64.9(ICD-10) Hospital Repository 10/05/2018 Unknown K57.30 - CebulDuane Active [facility] Diverticulosis of Community large intestine Hospital without perforation Repository or abscess without bleeding / K57.30(ICD-10) 10/05/2018 Unknown Z98.0 - Intestinal CebulDuane Active [facility] bypass and Community anastomosis status / Hospital Z98.0(ICD-10) Repository 09/03/2018 Unknown R06.09 - Other forms DevonJese travis Active [facility] of dyspnea / Community R06.09(ICD-10) Hospital Repository 08/06/2018 Unknown Z12.10 - Encounter CeDuane ly Active [facility] for screening for Community malignant neoplasm of Hospital intestinal tract, Repository unspecified / Z12.10(ICD-10) 08/04/2018 Unknown Z76.89 - Persons Stephanie, Active [facility] encountering health [facility] services in other Hospital specified Repository circumstances / Z76.89(ICD-10) 08/04/2018 Unknown Z23 - Encounter for Stephanie Active [facility] immunization / [facility] Z23(ICD-10) Hospital Repository 07/20/2018 Unknown R53.81 - Other Kike Eaton Active [facility] malaise / Community R53.81(ICD-10) Hospital Repository 07/20/2018 Unknown R53.83 - Other Kike Eaton Active [facility] fatigue / Community R53.83(ICD-10) Hospital Repository 07/20/2018 Unknown R40.0 - Somnolence / Kike Eaton Active [facility] R40.0(ICD-10) Community Hospital Repository 07/20/2018 Unknown G47.10 - Hypersomnia, Kike Eaton Active [facility] unspecified / Community G47.10(ICD-10) Hospital Repository 04/20/2018 Unknown D64.9 - Anemia, Renetta, Active [facility] unspecified / E[place] Community D64.9(ICD-10) Hospital Repository PROCEDURES PROCEDURES No Procedure Records FoundRESULTS RESULTS CR - HISTORY AND Observed: 10/06/2018 Status: F Source: [place] PHYSICAL 8:46 AM [facility] [address] [place] [address] CR - History AND Physical MR#: [id number] Acct: [id number] Name: IMANI MINER Rep #: [id number] : 1940 77 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 Kike Eaton Primary Diagnosis: PCI w/stent - History of Present Cardiac Event Onset Date: Enter Onset Date of cardiac illnesses in Comment field below PTCA or coronary stenting:: Yes - 09/07/2018; after holter monitor and diagnostic testing Type of Symptoms:: skipping heart rate. Interventions with present event:: Heart cath, holter monitor Were there any complications?: hematoma at sight of cath insertion; 20# weight applied - Medications Home Medications: Ambulatory Orders Medication Instructions Recorded Aspirin [Aspirin, Baby] 81 mg PO QHS 03/20/14 Finasteride [Proscar] 5 mg PO QHS 03/20/14 Magnesium 500 mg PO DAILY 03/20/14 Multivitamins,Therapeutic 1 tab PO DAILY 03/20/14 - Allergies Allergies/Adverse Reactions: Allergies amoxicillin [From Augmentin] Adverse Reaction (Intermediate, Verified 09/20/18 13:24) Nausea/Vom/Diarrhea clavulanic acid [From Augmentin] Adverse Reaction (Intermediate, Verified 09/20/18 13:24) Nausea/Vom/Diarrhea lisinopril Adverse Reaction (Intermediate, Verified 09/20/18 13:24) cough atorvastatin [From Lipitor] Adverse Reaction (Verified 09/20/18 13:24) Pain in joints gemfibrozil [From Lopid] Adverse Reaction (Verified 09/20/18 13:24) Pain in joints niacin Adverse Reaction (Verified 09/20/18 13:24) Other HOT FLASHES - Sleep Disorder Evaluation Hx of Sleep Apnea: Yes Do you snore loudly (louder than talking or can be heard through closed doors)?: Yes - has CPAP machine at home, getting used to it. Do you often feel tired/ fatigued/ sleepy during daytime?: No Has anyone observed you stop breathing during sleep?: No History of Hypertension (for STOP score): Yes - sleep study done here at [facility] STOP Results: Positive Advanced Directives - Advanced Directives Power of General Milling Superintendent: Yes Living Will: Yes Advance Directives on File: Yes DNR Order?:: No - MOLST See MOLST form: No Past Medical History - Past Medical Illness Medical History: Past Medical History (Last Updated 09/07/18 @ 20:10 by Nel Mcarthur) Pre-operative cardiovascular exam, new EKG abnormalities c/w ischemia (Acute) Z01.810, R94.31 Premature ventricular contractions (Acute) I49.3 Screening for intestinal cancer (Acute) Z12.10 Hearing loss (Chronic) H91.90 Nonrheumatic tricuspid (valve) insufficiency (Chronic) I36.1 Mild (1+) per echo 11/26/2016. RVSP 35 mmhg. Hypothyroidism (Chronic) E03.9 Atherosclerotic heart disease of [place] coronary artery without angina pectoris (Chronic) I25.10 CAMERON (2.5 X 38 [employer]) to mid LAD; CAMERON (2.5 X 12 [employer]) to Diagonal per Dr. Eaton @ [facility] 09/07/2018 Malaise and fatigue (Acute) R53.81, R53.83 Hypertension (Chronic) I10 Hypertension (Chronic) I10 Gastroesophageal reflux disease (Chronic) K21.9 Hyperlipidemia (Chronic) E78.5 Arthritis M19.90 Hay fever J30.1 Shoulder pain M25.519 Crohns disease K50.90 - Past Surgical History Surgical History: Past Surgical History (Last Reviewed 09/20/18 @ 13:25 by Sapna Carranza) Stented coronary artery (Chronic) Onset Date: 09/07/18 Z95.5 CAMERON (2.5 X 38 Prom[employer] Synergy) to mid LAD; CAMERON (2.5 X 12 Promus Synergy) to Diagonal per Dr. 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 Dunn @ [facility] eye lesion removal H/O hemorrhoidectomy Z98.890 1989 H/O vasectomy Z98.52 1972 History of prostate surgery Z98.890 2009 AND 2016 Hx of appendectomy Z98.890, Z90.49 ruptured appendix, 1993 Surgical History: - - Family History Summary Family History: Family History (Last Reviewed 09/20/18 @ 13:25 by Sapna Carranza) Grandfather CVA (cerebral vascular accident) Depression Brother COPD (chronic obstructive pulmonary disease) Grandmother Depression Son Arthritis Father Arthritis CAD (coronary artery disease) Mother Hypertension Hyperlipidemia Pacemaker Other Cancer Social History - Smoking History Smoking Status: Never smoker Hx Tobacco Use: No Hx Smoking Exposure: No - Alcohol Use Alcohol Usage: No - not for 55 years - Substance Abuse Hx Substance Use: No - Occupation Occupation (List type of work in comments):: Retired - in 1996 and held a partt [employer] job for 5 years, now fully retired. - Hobbies, Recreation, Social Activities Hobbies: Other - lawn work, gardening, mowing lawn. Recreational Activities: I am able to engage in all my recreational activities Social Environment - Status Marital Status: - Current Living Arrangements Living Environment:: Spouse - Children How many children do you have?: 3 Do any of your children live nearby?: Yes - 2 in [facility] - Safety Do you feel safe in your surroundings?: Yes - Assistance Do you need any assistance at home?: none Review of Systems - Review of Systems Hints: Right click = Denies (Slash). Left click = Reports ([employer]) Review of Present Symptoms: Reports: Shortness of Breath with Exertion - a little bit, Dizziness/Lightheadedness - a little bit; often times when standing up from sitting or laying position, Fatigue - takes a nap daily, Heart Arrhythmia/Irregularities - irregular rhythm lsat day or two has had irregular rhythm. H/O PVCs., Appetite - Normal, Appetite - Special Diet - cut out caffeine, tried cutting back on salt still using,, Sleep - Normal. Denies: Shortness of Breath at Rest, Sexual Changes - Pain Is Patient Pain Free?: No Pain Location: lower extremity - right knee and leg pain Risk Factor Assessment - Chief Complaint Chief Complaint: Patient presentst o cardiac rehab today following recent PTCA and coronary stent implant in August 2018. Patient is very [place] and wears bilateral hearing aids. He was to have an occular implant done, but that has been placed on hold due to his recent PCI and blood thinners. - Vital Signs Temperature: 98.7 F Respiratory Rate: 14 Pulse Ox: 96 Blood Pressure: 110/64 Nailbeds:: pink - Pulse Pulse Rate: 58 Pulse Rhythm: Regular - Hypertension How long have you been treated?: 15 On medication(s)?: yes Blood Pressure Sitting - Left Arm: 110/64 - Blood Cholesterol/Lipids Total Cholesterol (mg/dL) Goal = less than 200 mg/dL: 131 HDL Cholesterol (mg/dL) Goal = less than 40 mg/dL: 36 LDL Cholesterol (mg/dL) Goal = less than 70 mg/dL: 62 Triglycerides (mg/dL) Goal = less than 150 mg/dL: 163 - Diabetes Nutrition Referral for Diabetes: No - Obesity Height: 5 ft 8 in Weight:: 185 lb Weight in Pounds: 185.0 lbs Weight Source: Estimated by Patient Body Mass Index (BMI): 28.1 Nutritional Referral for Obesity: No - Physical Inactivity Physical Inactivity: None - Risk Stratification Risk Guidelines: Lowest Risk: Risk Factor for Smoking, Risk Factor for Dyslipidemia, Risk Factor for Diabetes, Risk Factor for Hypertension, Risk Factor for Sedentary Lifestyle, Risk Factor for Depression, Moderate Risk: Risk Factor for Obesity - For Smoking Smoking Risk Guidelines: Smoking Low Risk: None or quit greater than 6 months ago. Smoking Moderate Risk: Smoker or quit 6 months or less ago. Smoking High Risk: Smoker - For Dyslipidemia Dyslipidemia Risk Guidelines: Low Risk: Moderate Risk: High Risk: 15-25% fat 25.1-29% fat >/= 30% fat. <7% sat fat 7-9% sat fat >9% sat fat. <150 mg chol 150-299 mg chol >/= 300 mg chol. LDL <100 LDL 100-129 LDL >/= 130. Chol/HDL ratio <5.0 Chol/HDL ratio 5.0-6.0 Chol/HDL ratio >6.0. Triglycerides <100 Triglycerides 100-149 Triglycerides >/= 150 - For Diabetes Mellitus Diabetes Risk Guidelines: Diabetes Low Risk: HgA1c <6.5% and/or FBG <120. Diabetes Moderate Risk: HgA1c 6.6-7.9% and/or FBG 120- 180. Diabetes High Risk: HgA1c >/= 8% and/or FBG >180 - For Obesity/Overweight Obesity/Overweight Risk Guidelines: Obesity Low Risk: BMI <25.0. Obesity Moderate Risk: BMI 25-29.9. Obesity High Risk: BMI >/= 30.0 - For Hypertension Hypertension Risk Guidelines: Hypertension Low Risk: Systolic <120 and Diastolic <80. Hypertension Moderate Risk: Systolic 120-139 and Diastolic 80-89. Hypertension High Risk: Systolic >/= 140 and Diastolic >/= 90 - For Sedentary Lifestyle Sedentary Lifestyle Risk Guidelines: Sedentary Lifestyle Low Risk: >/= 1,500 kcal/week. Sedentary Lifestyle Moderate Risk: 700-1,499 kcal/week. Sedentary Lifestyle High Risk: < 700 kcal/week - For Depression Depression Risk Guidelines: Depression Low Risk: Not clinically depressed. Depression Moderate Risk: Mildly depressed. Depression High Risk: Clinically depressed - Family History Family History: Family History (Last Reviewed 09/20/18 @ 13:25 by Sapna Carranza) Grandfather CVA (cerebral vascular accident) Depression Brother COPD (chronic obstructive pulmonary disease) Grandmother Depression Son Arthritis Father Arthritis CAD (coronary artery disease) Mother Hypertension Hyperlipidemia Pacemaker Other Cancer Motivation - Motivation to Participate On a scale of 1 to 10, how prepared are you to commit to attending program?: 10 What do you see as barriers to successfully being able to complete the program?: a little problem with pain in his right hip. What do you see as the benefits of succesfully completing the program? In other words, what do you hope to get out of participating in the program?: be more healthy, live a few more years, control BP, and be more active Are there issues you are dealing with that will interfere with completing the program?: none Do you have a spouse or signficant other, family or friends who will help support you to complete the program?: yes. 10/05/18 1027 <Electronically signed by He Cleary CRT, RCP, BS> Date He Cleary CRT, RCP, HELGA Outcome assessment reviewed. Exercise plan approved as documented. Treatment plan and goals support patient needs/abilities. Continue with current plan. I certify the patient demonstrates improvement and remains willing and capable of participation. the patient continues to benefit from cardiac rehab services/training. The patient may continue at current intensity, endurance and modality and progress per protocol. 10/06/18 0846 <Electronically signed by Kike Eaton MD> Cosigner Signature: Date Kike Eaton MD CC: Signed CARDIOLOGY VISIT Observed: 09/24/2018 Status: F Source: [place] REPORT 2:10 PM [facility] [address] [place] [address] OFFICE VISIT Date of Service: 09/20/18 MR#: [id number] Acct: [id number] Name: IMANI MINER Rep #: [id number] : 1940 Provider: Candice Galvez Age/Sex: 77/M Location[place] [facility] [place] Status: Signed HPI HPI Chief Complaint: 3 month f/u Details: IMANI MINER, is a 77 M who presents to the office today for a cardiovascular follow-up. He has a history of coronary artery disease with recent stenting in August 2018 to his LAD and diagonal. He also has a history of hypertension and hyperlipidemia. He recently established with us for concerns over his hypertension. Patient underwent a stress echocardiogram in June 2018 which was negative for ischemia however he continued to have shortness of breath and decreased exercise capacity. He did have a Holter monitor which demonstrated over 11,000 PVCs compromising 10% of his scan. He underwent a diagnostic heart catheterization for his continued shortness of breath. He was noted to have disease in his LAD and diagonal wonder which she went stenting for. Pt sts that since he had his stenting done he notes that he has had a decrease in PVCs. He also notes that his SOB is better. He has not had any chest pain/heaviness/tightness. He does not have any lightheadedness/dizziness. He does not have any near syncope/syncope. He does not have any edema. Intake Vital Signs09/20/18 Body Mass Index (BMI) 26.5 Intake Visit Reasons: 2 WK S/P PCI Bid Clerk Required: No Accompanied by: Son Is patient in pain?: No Allergies amoxicillin [From Augmentin] Adverse Reaction (Intermediate, Verified 09/20/18 13:24) Nausea/Vom/Diarrhea clavulanic acid [From Augmentin] Adverse Reaction (Intermediate, Verified 09/20/18 13:24) Nausea/Vom/Diarrhea lisinopril Adverse Reaction (Intermediate, Verified 09/20/18 13:24) cough atorvastatin [From Lipitor] Adverse Reaction (Verified 09/20/18 13:24) Pain in joints gemfibrozil [From Lopid] Adverse Reaction (Verified 09/20/18 13:24) Pain in joints niacin Adverse Reaction (Verified 09/20/18 13:24) Other Medications Aspirin [Aspirin, Baby] 81 mg PO QHS 03/20/14 [History Confirmed 09/20/18] Finasteride [Proscar] 5 mg PO QHS 03/20/14 [History Confirmed 09/20/18] Magnesium 500 mg PO DAILY 03/20/14 [History Confirmed 09/20/18] Multivitamins,Therapeutic [Multivitamin] 1 tab PO DAILY 03/20/14 [History Confirmed 09/20/18] Allergy Shot 1 unit IM QWEEK 08/13/16 [History Confirmed 09/20/18] Bilberry 375 mg PO QHS 08/13/16 [History Confirmed 09/20/18] Calcium Carbonate [Calcium] 1,500 mg PO QHS 08/13/16 [History Confirmed 09/20/18] Cholecalciferol (VIT D3) [Vitamin D3] 2,000 unit PO QHS 08/13/16 [History Confirmed 09/20/18] Testosterone Cypionate [Depo-Testosterone] 100 mg IM UD 08/13/16 [History Confirmed 09/20/18] Ubidecarenone [Co Q-10] 30 mg PO QHS 08/13/16 [History Confirmed 09/20/18] omeprazole 20 mg capsule,delayed release 20 mg PO DAILY 09/09/17 [History Confirmed 09/20/18] psyllium seed (sugar) oral powder 1 tbsp PO DAILY 09/09/17 [History Confirmed 09/20/18] budesonide-formoterol HFA 160 mcg-4.5 mcg/actuation aerosol inhaler 2 puff INHALATION BID 05/21/18 [History Confirmed 09/20/18] cyanocobalamin (vit B-12) 500 mcg tablet 250 mcg PO DAILY@0800 tab 06/08/18 [History Confirmed 09/20/18] labetalol 200 mg tablet 200 mg PO BID #180 tab 08/17/18 [Rx Confirmed 09/20/18] levothyroxine 112 mcg tablet 112 mcg PO QDAY #90 tab 08/17/18 [Rx Confirmed 09/20/18] Hydrochlorothiazide [Hctz] 25 mg PO DAILY 08/20/18 [History Confirmed 09/20/18] Rosuvastatin Calcium 5 mg PO QHS 08/20/18 [History Confirmed 09/20/18] sertraline 25 mg tablet 25 mg PO LUNCH #90 tab 08/31/18 [Rx Confirmed 09/20/18] losartan 100 mg tablet 100 mg PO QHS #90 tab 09/02/18 [Rx Confirmed 09/20/18] amlodipine 5 mg tablet 5 mg PO DAILY #90 tab 09/17/18 [Rx Confirmed 09/20/18] gabapentin 300 mg capsule 300 mg PO TID #270 cap 09/17/18 [Rx Confirmed 09/20/18] clopidogrel 75 mg tablet 75 mg PO DAILY #90 tab 09/20/18 [Rx Confirmed 09/20/18] Ejection fraction %: 65 to 70 PFSH Medical History Pre-operative cardiovascular exam, new EKG abnormalities c/w ischemia (Acute) Premature ventricular contractions (Acute) Screening for intestinal cancer (Acute) Hearing loss (Chronic) Nonrheumatic tricuspid (valve) insufficiency (Chronic) Hypothyroidism (Chronic) Atherosclerotic heart disease of [place] coronary artery without angina pectoris (Chronic) Malaise and fatigue (Acute) Hypertension (Chronic) Hypertension (Chronic) Gastroesophageal reflux disease (Chronic) Hyperlipidemia (Chronic) Arthritis (Acute) Hay fever (Acute) Shoulder pain (Acute) Crohns disease (Chronic) Surgical History Stented coronary artery (Chronic 09/07/18) History of left heart catheterization (Chronic 03/21/14) [...] never substance use type: does not use caffeine: No what type of physical activity do you participate in: walking frequency: 5-6 times per week ROS Const Const: Negative for weakness, fatigue, fever(s) or headache(s) Eyes Eyes: Negative for blind spots, loss of peripheral vision or transient loss of vision ENT ENT: Negative for headache(s), dizziness, tinnitus or Nosebleed/epistaxis Cardio Chest Pain: No Palpitations: No Edema: None Muscle aches with walking: None Resp Respiratory: Negative for SOB with activity, SOB at rest, SOB orthopnea\SOB lying down or Cough GI GI: Negative nausea, vomiting, heartburn or vomiting blood/hematemesis : Negative for hematuria Musc Musc: Negative for muscle aches/ myalgia Neuro Neuro: Negative for weakness, headache(s), dizziness, near syncope, syncope, lightheadedness or orthostatic symptoms Cl Hematologic/Lymphatic: Negative for easy bleeding Endo Endo: Negative for fatigue Cardiology Exam Const Appearance: cooperative, healthy appearing [...] Psychological: normal affect Assessment AND Plan 1. Atherosclerosis of [place] coronary artery of [place] heart without angina pectoris I25.10 [place] (2.5 X 38 Promus Synergy) to mid LAD; CAMERON (2.5 X 12 Promus Synergy) to Diagonal per Dr. Eaton @ [facility] 09/07/2018 Plan Pt symptoms have improved. Reviewed his medications. He is aware that he will need to be on his Plavix for at least one year. He will be referred for cardiac rehab. 2. Pure hypercholesterolemia E78.00; E78.0 Plan Recent lipid profile has been reviewed. Patient will continue with his current dose of low intensity statin. 3. Essential hypertension I10 Plan Blood pressure is well controlled on current medications, we do not recommend any changes at this time. 4. Premature ventricular contractions I49.3 Plan Symptoms seemed to have improved. Pt will continue with his current dose of BB. His PVCs will be monitored with cardiac rehab. Plan Detail Other Medications Changed: Additional Comments Thank you for allowing us to participate in patient's plan of care, if you have any questions please do not hesitate to call. This note was generated using a voice recognition system and there may be incorrect words, spelling or punctuation errors that were not noted when reviewing the office note prior to saving. Follow Up 09/20/18 (keep as is) Coding Level of Care Code Off vis,est,level 4 Diagnoses Atherosclerosis of [place] coronary artery of [place] heart without angina pectoris I25.10 [place] vs. transplanted heart: [place] heart Pure hypercholesterolemia E78.00; E78.0 Hyperlipidemia type: pure hypercholesterolemia Essential hypertension I10 Hypertension type: essential hypertension Premature ventricular contractions I49.3 Coding Level of Care Code Off vis,est,level 4 Diagnoses Atherosclerosis of [place] coronary artery of [place] heart without angina pectoris I25.10 [place] vs. transplanted heart: [place] heart Pure hypercholesterolemia E78.00; E78.0 Hyperlipidemia type: pure hypercholesterolemia Essential hypertension I10 Hypertension type: essential hypertension Premature ventricular contractions I49.3 Supplemental Info Supplemental Information Heart catheterization in 2018 demonstrated : normal LV size, wall motion,and systolic function Single vessel CAD of the LAD and DIAG Successful PTCA/CAMERON of mid LAD with a 2.5 x 38 Promus Synergy, post dilated with a 2.5 x 12 NC; 85%-->0%, no dissection. Successful PTCA/CAMERON proximal DIAG with a 2.5 x 12 Promus Synergy, post dilated proximally with a 2.75 and 3.0 x 8 NC Balloon; 75%-->0%, no dissection. Labs LDL Cholesterol 62 mg/dL (0-130) 09/08/18 HDL Cholesterol 36 mg/dL (40-) L 09/08/18 Triglycerides 163 mg/dL (-199) 09/08/18 VLDL Cholesterol 33 mg/dL (5-40) 09/08/18 Diagnostics Electrocardiogram 09/08/18 Chest X-Ray 09/03/18 Pulmonary Pulmonary Function Test 08/20/18 09/24/18 1316 <Electronically signed by Candice WELLINGTON> Date Candice WELLINGTON Cosigner Signature: Date (if applicable) CC: Tania Jackson MD EMERGENCY DEPARTMENT Observed: 09/14/2018 Status: F Source: [facility] SUMMARY 7:56 AM [facility] Medical Records Department [address] [place] [address] Emergency Department Summary 09/11/18 0302 MR#: [id number] Acct: [id number] Name: IMANI MINER Rep #: [id number] : 1940 77 From: Cedric Fonseca MD PCP: Tania Jackson MD Status: DEP ER - ER Visit Summary Date of Service: 09/11/18 Chief Complaint: Instructed to have Site evaluated History of Present Illness: The patient is a 77 M who had a cardiac catheterization by Dr. Jose Eaton on Thursday. Right femoral artery was cannulated. Patient states he had 2 stents placed. He states there was difficulty post catheterization regarding bleeding. This evening he states he felt the lump in the right inguinal and applied pressure for 20 minutes. He states the lump is now smaller in size. Spoke with Dr. Eaton who says the vessel was ultrasounded during his hospital stay earlier this week. No pseudoaneurysm noted at that time. Patient is on Plavix. He states the area of discoloration and ecchymosis is not significantly larger. Physical Examination: Vital signs remarkable blood pressure 165/91. Examination of the right groin reveals significant amount of ecchymosis. The right femoral artery is much more prominent palpable and larger in size on the right compared to left. Mild discomfort with pressure. Test Results: Arterial ultrasound ordered to evaluate for pseudoaneurysm Emergency Department Course and Treatment: IV was established. 20 pound sandbag was applied. Since patient is not actively bleeding who will be observed in the ER until vascular personnel available in the morning for arterial study to evaluate for pseudoaneurysm. Treatment Plan: 20 pound sandbag and arterial study in the morning Disposition: Pending results of ultrasound and discussing case again with Dr. Eaton Impression: Pending arterial study This note was generated with Signal[employer] software. It may contain incorrect words, spelling, and punctuation that were not noted in review of the chart prior to signing <Cedric Fonseca - Last Filed: 09/11/18 03:02> - ER Visit Summary Ultrasound was performed is negative for pseudoaneurysm or fistula. Patient was assessed by Dr. Eaton here in the department. They addressed his hypertension. He will be discharged home with continued home care with follow-up as arranged. 1. Right inguinal hematoma This note was generated with [employer] dictation software. It may contain incorrect words, spelling, and punctuation that were not noted in review of the chart prior to signing <Kike Haas - Last Filed: 09/11/18 09:40> ED Disposition <Cedric Fonseca - Last Filed: 09/11/18 03:02> <Kike Haas - Last Filed: 09/11/18 09:40> - Plan for ED Patient: Disposition: Home or Assisted Living Chief Complaint: Wound Check Instructions: ED Cardiac Cath Post Bleed Hematom Referrals: Tania Jackson MD [Primary Care Provider] - Kike Eaton MD [STAFF PHYSICIAN] - (as scheduled) What to do if you have Problems For any increased pain, shortness of breath, bleeding, nausea or vomiting, chest pain, or any unexpected problems, contact your Primary Care Provider. Call [facility] ([phone]) or report to the closest Emergency Room. Call 911 if necessary. 09/14/18 0756 <Electronically signed by Cedric Fonseca MD> Date Cedric Fonseca MD 09/13/18 0703<Electronically signed by Kike Haas DO> Cosigner Signature (If Indicated): Date Kike Haas DO CC: Tania Jackson MD ARTERIAL DUPLEX US, Observed: 09/13/2018 Status: F Source: [facility] 6:56 AM [facility] Cardiovascular Services [address] [place] [address] Art Duplex US Unilat Lower Ext 09/11/18 0837 MR#: [id number] Acct: [id number] Name: IMANI MINER Rep #: [id number] : 1940 77 From: Duane Cummings MD Attending Dr: Status: DEP ER Ordering Dr: Cedric Fonseca MD Date: 09/11/18 Location: ED Sex: M C Admitted: Reason For Study: PSEUDOANEURYSM Right Velocities RT LEATHER SPLITTER measures .9 x .9 cm with a velocity of 110 cm/sec. RT CFV demonstrated normal phasic flow pattern. No evidence of Pseudoaneurysm or AV Fistula. Interpretation Summary Normal right common femoral artery 0.9 x 0.9cm with no evidence for pseudoaneurysm or AV fistula Ordering Physician: Cedric Fonseca Referring Physician: TANIA JACKSON Performed By: Joleen Puente, RDCS, RVT 09/13/18 0656 Date Duane Cummings MD CC: Kike Haas DO; Tania Jackson MD; Cedric Fonseca MD Date Dictated: 09/11/1837 Date Transcribed: 09/13/18655 [place]: Signed 12 LEAD ELECTROCARDIOGRAM Observed: 09/10/2018 Status: F Source: [facility] 2:23 PM [facility] Cardiovascular Services [address] [place] [address] 12 Lead EKG 09/07/18 1851 MR#: [id number] Acct: [id number] Name: IMANI MINER Rep #: [id number] : 1940 77 From: Celso Thomas MD Attending Dr: Kike Eaton MD [facility] Ordering Dr: Kike Eaton MD Date: 09/07/18 Location: [facility] Sex: M C Admitted: Test Reason : CP Blood Pressure : / mmHG Vent. Rate : 074 BPM Atrial Rate : 074 BPM P-R Int : 146 ms QRS Dur : 096 ms QT Int : 380 ms P-R-T Axes : 059 -75 044 degrees QTc Int : 421 ms Normal sinus rhythm Left anterior fascicular block Abnormal ECG When compared with ECG of 03-JAN-2017 03:01, No significant change was found Confirmed by KAYLA ANTONIO, CELSO ([id number]), online editor JERAMIE REAL ([id number]) on 09/10/2018 2:22:45 PM Referred By: Kike Eaton Confirmed By:CELSO THOMAS MD 09/10/18 1422 Date Celso Thomas MD CC: Kike Eaton MD; Tania Jackson MD Signed 12 LEAD ELECTROCARDIOGRAM Observed: 09/10/2018 Status: F Source: [facility] 2:19 PM [facility] Cardiovascular Services [address] [place] [address] 12 Lead EKG 09/08/18 0537 MR#: [id number] Acct: [id number] Name: IMANI MINER Rep #: [id number] : 1940 77 From: Celso Thomas MD Attending Dr: Kike Eaton MD Status: DEP [facility] Ordering Dr: Kike Eaton MD Date: 09/08/18 Location: [facility] Sex: M C Admitted: Test Reason : Blood Pressure : / mmHG Vent. Rate : 099 BPM Atrial Rate : 099 BPM P-R Int : 142 ms QRS Dur : 094 ms QT Int : 338 ms P-R-T Axes : 069 -63 065 degrees QTc Int : 433 ms Sinus rhythm with occasional Premature ventricular complexes Left anterior fascicular block Abnormal ECG When compared with ECG of 07-SEP-2018 18:51, MANUAL COMPARISON REQUIRED, DATA IS UNCONFIRMED Confirmed by KAYLA ANTONIO, CELSO ([id number]), online editor JERAMIE REAL ([id number]) on 09/10/2018 2:18:41 PM Referred By: Kike Eaton Confirmed By:CELSO THOMAS MD 09/10/18 1418 Date Celso Thomas MD CC: Kike Eaton MD; Tania Jackson MD Signed ARTERIAL DUPLEX US, Observed: 09/08/2018 Status: F Source: [facility] LIMITED 9:05 PM [facility] Cardiovascular Services [address] [place] [address] Art Duplex US Unilat Lower Ext 09/08/18 0804 MR#: [id number] Acct: [id number] Name: IMANI MINER Rep #: [id number] : 1940 77 From: Duane Cummings MD Attending Dr: Kike Eaton MD [facility] Ordering Dr: Kike Eaton MD Date: 09/08/18 Location: [facility] Sex: M C Admitted: Reason For Study: RT groin pain/ecchymosis Right Velocities Left Velocities RT LEATHER SPLITTER - 1.1 x 1.0 cm with a velocity of 112.0 LTCFA - 1.1 x 1.0 cm with a velocity of 91.9 cm/s cm/s LT CFV demonstrates normal phasic flow signal. RT CFV demonstrates normal phasic flow signal No evidence of pseudoaneurysm or AV fistula. Procedure Exam performed portable in ICU/CCU. Interpretation Summary Common femoral arteries appear bilaterally patent, demonstrating pulsatile color flow bilaterally. There is no evidence of pseudoanuerysm, arterio-venous fistula, or other iatrogenic abnormality on either side. Ordering Physician: Kike Eaton Referring Physician: Tania Jackson Performed By: Emily Murrell RVT 09/08/182103 Date Duane Cummings MD CC: iKke Eaton MD; Tania Jackson MD Date Dictated: 09/08/18803 Date Transcribed: 09/08/182103 [place]: Signed DISCHARGE INSTRUCTION Observed: 09/08/2018 Status: F Source: [facility] 8:43 AM [facility] Medical Records Department [address] [place] [address] Instructions for Home/Discharge Instructions 09/08/18 0838 MR#: [id number] Acct: [id number] Name: IMANI MINER Rep #: [id number] : 1940 77 From: Candice WELLINGTON PCP: Tania Jackson MD Status: REG SDC Discharge Diet: No Restrictions - You may continue your normal diet. May resume sexual activity in: No Restrictions Lifting Restrictions: 10 pounds and also avoid any pushing or pulling for 3 days after your test. Call your doctor if your incision/area has: Continuous Slow Oozing, Sudden Increased Bleeding, Increased Pain/ Swelling, Increased Redness, Foul Smelling Discharge, Swelling at the incision site Call your doctor if you observe: Fever of 101 or Higher, Shortness of breath, Chest pain Remove Dressing in (days):: 1 Additional Dressing/Incision Instructions:: Keep the dressing (bandage) on until the next morning. You may then shower, but do not take a tub bath for 5 days after your test. It is normal to have some tenderness and discomfort at the puncture site. Sometimes bruising also occurs. However, if pain, numbness, or coldness occurs below the puncture site (in your leg, toes, arms or fingers) call your doctor at once. You may have a small, marble sized knot at the puncture site. This is normal. Do not rub it. It will go away in 4-6 weeks. Bleeding can occur from the area where the puncture was done. Blood may spurt or drip from the site. If blood spurts, apply pressure right away to stop bleeding and call 911. Although rare, bleeding into the tissue (hematoma) can also occur. If this happens, a large, firm area goose egg under the skin will appear. If any of these occur, lie down as flat as you can and have someone apply firm pressure to the cath site with a gauze pad or a clean washcloth for 10-15 minutes. Call 911 or go to the Emergency Department. Additional Instructions: You will need to stay on your Plavix for at least one year When you come in to the office visit we will discuss cardiac rehab Allergies/Adverse Reactions: Allergies amoxicillin [From Augmentin] Adverse Reaction (Intermediate, Verified 09/06/18 11:12) Nausea/Vom/Diarrhea clavulanic acid [From Augmentin] Adverse Reaction (Intermediate, Verified 09/06/18 11:12) Nausea/Vom/Diarrhea lisinopril Adverse Reaction (Intermediate, Verified 09/06/18 11:12) cough atorvastatin [From Lipitor] Adverse Reaction (Verified 09/06/18 11:12) Pain in joints gemfibrozil [From Lopid] Adverse Reaction (Verified 09/06/18 11:12) Pain in joints niacin Adverse Reaction (Verified 09/06/18 11:12) Other HOT FLASHES Medications to take at Discharge Aspirin [Aspirin, Baby] 81 mg PO QHS 03/20/14 Finasteride [Proscar] 5 mg PO QHS 03/20/14 Magnesium 500 mg PO DAILY 03/20/14 Multivitamins,Therapeutic [Multivitamin] 1 tab PO DAILY 03/20/14 Allergy Shot 1 unit IM QWEEK 08/13/16 Bilberry 375 mg PO QHS 08/13/16 Calcium Carbonate [Calcium] 1,500 mg PO QHS 08/13/16 Cholecalciferol (VIT D3) [Vitamin D3] 2,000 unit PO QHS 08/13/16 Testosterone Cypionate [Depo-Testosterone] 100 mg IM UD 08/13/16 Ubidecarenone [Co Q-10] 30 mg PO QHS 08/13/16 omeprazole 20 mg capsule,delayed release 20 mg PO DAILY 09/09/17 psyllium seed (sugar) oral powder 1 tbsp PO DAILY 09/09/17 budesonide-formoterol HFA 160 mcg-4.5 mcg/actuation aerosol inhaler 2 puff INHALATION BID 05/21/18 amlodipine 2.5 mg tablet 2.5 mg PO QHS 06/08/18 cyanocobalamin (vit B-12) 500 mcg tablet 250 mcg PO DAILY@0800 tab 06/08/18 labetalol 200 mg tablet 200 mg PO BID #180 tab 08/17/18 levothyroxine 112 mcg tablet 112 mcg PO QDAY #90 tab 08/17/18 Gabapentin [Neurontin] 300 mg PO TID 08/20/18 Hydrochlorothiazide [Hctz] 25 mg PO DAILY 08/20/18 Rosuvastatin Calcium 5 mg PO QHS 08/20/18 sertraline 25 mg tablet 25 mg PO LUNCH #90 tab 08/31/18 losartan 100 mg tablet 100 mg PO QHS #90 tab 09/02/18 clopidogrel 75 mg tablet 75 mg PO .COMPLEX #30 tab 09/03/18 Primary Care Physician: Tania Jackson MD [Primary Care Provider] - Test Results: Test results from this visit will be discussed in further detail at your follow-up appointment, if applicable. Please Follow Up With: Candice Galvez PA When: 09/20 at 1pm Cardiac Rehabilitation Info Cardiac Rehabilitation Program Information: Cardiac Rehabilitation is important for patients like you who are recovering from a heart problem. Cardiac rehabilitation programs are recognized as integral to the continued care of the patient with coronary heart disease. The cardiac rehabilitation program is designed to optimize a patient's physical, psychological, and social functioning. Health customer care assistant work in cardiac rehabilitation programs and assist you with getting the treatments you need to get stronger and healthier - like exercise, healthy eating habits, and medications. Cardiac rehabilitation has been show to help people with heart problems live longer and have better life enjoyment than people who do not go to cardiac rehabilitation. Please contact the Cardiac Rehabilitation Program at [facility] at in two weeks if you have not heard from them. 09/08/18 0843 <Electronically signed by Candice WELLINGTON> Date Candice WELLINGTON CC: Tania Jackson MD CBC-COMPLETE BLOOD CNT Collected: 09/08/2018 Status: F Source: [facility] NO DIFF 4:25 AM [facility] [...] MPV 9.1 Performed By: #### L100.0500 #### [facility] [address] [place], [address] BASIC METABOLIC Collected: 09/08/2018 Status: F Source: [facility] PROFILE (BMP) 4:25 AM [facility] [...] 10 Performed By: #### L500.2500, L500.4100 #### [facility] [address] [place], [address] LIPID PROFILE Collected: 09/08/2018 Status: F Source: [facility] 4:25 AM [facility] [...] 33 Performed By: #### L500.2500, L500.4100 #### [facility] [address] [place], [address] ACT ACTIVATED CLOTTING Collected: 09/07/2018 Status: F Source: [facility] TIME 11:30 AM [facility] TYPE CODE TESTS RESULT OUT OF RANGE REFERENCE UNITS LAB L9100.0100 74-137 sec High ACTk CLOT 169 TIME Performed By: #### L9100.0100 #### [facility] Point of Care [address] [place] [address] CARDIOLOGY VISIT Observed: 09/06/2018 Status: F Source: [facility] REPORT 11:26 AM [facility] [address] [place] [address] OFFICE VISIT Date of Service: 09/06/18 MR#: [id number] Acct: [id number] Name: IMANI MINER Rep #: [id number] : 1940 Provider: Kike Eaton MD Age/Sex: 77/M Location: [facility] Status: Signed HPI [facility] Chief Complaint: 3 month f/u Details: IMANI [...] statin based medicines. His father of an IN at age 60, and his mother had [...] Visit Reasons: Update H AND P per PRETTY Bid Clerk Required: No Is patient in pain?: No [...] .COMPLEX #30 tab 09/03/18 [Rx Confirmed 09/06/18] PFSH Medical History Pre-operative cardiovascular exam, new EKG abnormalities c/w ischemia (Acute) Premature ventricular contractions (Acute) Screening for intestinal cancer (Acute) Hearing loss (Chronic) Nonrheumatic tricuspid (valve) insufficiency (Chronic) Hypothyroidism (Chronic) Atherosclerotic heart disease of [place] coronary artery without angina pectoris (Chronic) Malaise [...] Lymph 0.85 Performed By: #### L100.0100 #### [facility] [address] [place], [address] CHEST PA AND LATERAL Observed: 09/03/2018 Status: F Source: [facility] 1:03 PM [facility] Imaging Services [address] [place] [address] Chest PA and Lateral MR#: [id number] Acct: [id number] Name: IMANI MINER Rep #: [id number] : 1940 M 77 From: Lupillo Smith MD PCP: Tania Jackson MD Status: REG CLI Study: Chest PA and Lateral Date of Exam: 09/03/18 Exam# [id number] Ordering Dr: Kike Eaton MD STUDY: X-RAY [...] CC: Kike Eaton MD; Tania Jackson MD [place]: Signed BASIC METABOLIC Collected: 09/01/2018 Status: F Source: [facility] PROFILE ([facility]) 10:25 AM [facility] [...] By: #### L500.2500, L501.5200, L501.9310, L501.9520 #### [facility] [address] [place], [place], [address] MAGNESIUM Collected: 09/01/2018 Status: F Source: [facility] 10:25 AM [facility] TYPE CODE TESTS RESULT OUT OF RANGE REFERENCE UNITS LAB L501.5200 1.6-2.6 mg/dL Normal MG 2.1 Performed By: #### L500.2500, L501.5200, L501.9310, L501.9520 #### [facility] [address] [place], [address] T4 TOTAL, THYROXIN Collected: 09/01/2018 Status: F Source: [facility] 10:25 AM [facility] TYPE CODE TESTS RESULT OUT OF REFERENCE UNITS RANGE LAB L501.9310 4.5-12.1 ug/dL T4 High THYROXIN 12.3 Performed By: #### L500.2500, L501.5200, L501.9310, L501.9520 #### [facility] [address] [place], [address] THYROID STIM HORMONE Collected: 09/01/2018 Status: F Source: [facility] ([facility]) 10:25 AM [facility] TYPE CODE TESTS RESULT OUT OF RANGE REFERENCE UNITS LAB L501.9520 0.358-3.74 uIU/mL Normal TSH 0.78 Performed By: #### L500.2500, L501.5200, L501.9310, L501.9520 #### [facility] [facility] [address] [place], [address] 12 LEAD EKG PERFORMED Observed: 09/01/2018 Status: F Source: [facility] 9:55 AM [facility] [address] [facility] [place] [address] 12 Lead EKG performed by [facility] 09/01/18 0955 MR#: [id number] Acct: [id number] Name: IMANI MINER Rep #: [id number] : 1940 77 From: Kike Eaton MD Attending Dr: Kike Eaton MD Status: DEP AMB Ordering Dr: Kike Eaton MD Date: 09/01/18 Location: [facility] Sex: M C Admitted: [facility]/12 Lead EKG performed by [facility] ECG Report Interpretation Sinus Rhythm - frequent ectopic ventricular beat s # VECs = 2-Left axis -anterior fascicular block. ABNORMAL Electronically signed on 09/03/2018 at 15:05 by Kike Eaton Software Version 8610 09/03/18 8534 Date Kike Eaton MD CC: Tania Jackson MD Date Dictated: 09/01/18954 Date Transcribed: 09/01/18954 [place]: Signed ORB SELLA POST Observed: 08/26/2018 Status: F Source: [facility] FOSSA EAR W/O 1:28 PM [facility] Imaging Services [address] [place] [address] Orb Sella Post Fossa Ear w/o MR#: [id number] Acct: [id number] Name: IMANI MINER Rep #: [id number] : 1940 M 77 From: Luca Arteaga MD PCP: Tania Jackson MD Status: REG CLI Study: Orb Sella Post Fossa Ear w/o Date of Exam: 08/26/18 Exam# [id number] Ordering Dr: Valdemar Germain MD ADDENDUM by [...] CC: Pastor Germain MD; Tania Jackson MD [place]: Signed OPERATIVE REPORT - Observed: 08/24/2018 Status: F Source: [facility] ENDOSCOPY 8:31 AM [facility] Medical Records Department [address] [place] [address] Operative Report - Endoscopy MR#: [id number] Acct: [id number] Name: IMANI MINER Rep #: [id number] : 1940 77 From: Duane Cummings MD PCP: Tania Jackson MD Status: REG [facility] Patient Name: Imani Miner Procedure Date: 08/24/2018 [...] screening purposes. Procedure Code(s): --- Professional --- 14529, Colonoscopy, flexible; diagnostic, including collection of specimen(s) by brushing or washing, when performed (separate procedure) Diagnosis Code(s): --- Professional --- Z12.11, Encounter for screening for malignant neoplasm of colon K64.9, Unspecified hemorrhoids Z98.0, Intestinal bypass and anastomosis status K57.30, Diverticulosis of large intestine without perforation or abscess without bleeding N40.0, Benign prostatic hyperplasia without lower urinary tract symptoms CPT copyright 2017 [employer]. All rights reserved. The codes documented in this report are preliminary and upon land acquisition specialist review may be revised to meet current compliance requirements. Duane Cummings MD 08/24/2018 8:30:35 AM This report has been signed electronically. Number of Addenda: 0 Note Initiated On: 08/24/2018 8:09 AM 08/24/18829 Date Duane Cummings MD Cosigner Signature: Date (if indicated) CC: Tania Jackson MD; Duane Cummings MD Date Dictated: 08/24/18808 Date Transcribed: [place]: JOSE Signed PULMONARY FUNCTION Observed: 08/21/2018 Status: F Source: [facility] REPORT COMP 6:44 AM [facility] Pulmonary Services/Neurology [address] [place] [address] MR#: [id number] Acct: [id number] Name: IMANI MINER Rep #: [id number] : 1940 77 From: Jese Osorio MD Referring Dr: Lydia Brown ASBESTOS HANDLER Status: REG CLI Ordering Dr: Date: Location: [facility] Sex: M C COMPLETE PULMONARY FUNCTION TEST INTERPRETATION Brief HPI: Patient is a 77 year old male, currently under the care of Lydia Brown, who presents to [facility] for complete pulmonary function tests secondary to [...] Lydia Brown; Tania Jackson MD Date Dictated: 08/20/18 1411 Date Transcribed: 08/20/18 141 [place]: LISA Signed INTERNAL MEDICINE Observed: 08/07/2018 Status: F Source: [facility] OFFICE VISIT 8:18 AM [facility] [address] [place] [address] [place] [address] OFFICE VISIT Date of Service: 08/03/18 MR#: [id number] Acct: [id number] Name: IMANI MINER Asha Rep #: [id number] : 1940 Provider: Huber Solano NP Age/Sex: 77/M Location: [facility] Status: Signed Intake Vital Signs08/03/18 Height 5 [...] 5 mg tablet 5 mg PO QDAY 05/15/18 [History Confirmed 08/06/18] labetalol 200 mg tablet [...] DAILY #30 tab 07/14/18 [Rx Confirmed 08/06/18] PFS Medical History Screening for intestinal cancer (Acute) Hearing loss (Chronic) Nonrheumatic tricuspid (valve) insufficiency (Chronic) Hypothyroidism (Chronic) Atherosclerotic heart disease of [place] coronary artery without angina pectoris (Chronic) Malaise [...] oriented x3 Limitations: mental status not altered [facility] Head: normal to inspection Ears: hearing grossly [...] viral at this time. Patient encouraged to bulk picker Flonase prrj-cgt-gwmcrtz and use 2 sprays in each nostril once a day for his postnasal drip and may continue with hggh-qnt-dmokcek cough syrup that does not contain Sudafed [...] medical care. This note was generated with [employer] dictation software. It may contain incorrect words, spelling, and punctuation that were not noted in checking the note before signing. Plan Detail Follow Up As previously scheduled or sooner Coding Level of Care Code Off vis,est,level 3 Diagnoses URI (upper respiratory infection) J06.9 Depression F32.9 08/07/18 0818 <Electronically signed by Huber HAQ> Date Huber HAQ Cosigner Signature: Date (if applicable) CC: SURGERY VISIT REPORT Observed: 08/06/2018 Status: F Source: [facility] 2:39 PM [facility] [address] [place] [address] [address] [place] [address] OFFICE VISIT Date of Service: 08/06/18 MR#: [id number] Acct: [id number] Name: IMANI MINER Rep #: [id number] : 1940 Provider: Duane Cummings MD Age/Sex: 77/M Location: [facility] Status: Signed Intake Vital Signs08/06/18 Body Mass Index (BMI) 28.5 08/06/18 Height 5 ft 8 in 08/06/18 Weight: 185 lb 08/06/18 Body Mass Index (BMI) 28.1 Intake Visit Reasons: BRBPR, change in bowel habits Chief Complaint: 3 month f/u Bid Clerk Required: No Is patient in pain?: No [...] DAILY #30 tab 07/14/18 [Rx Confirmed 08/06/18] PFSH Medical History Hearing loss (Chronic) Nonrheumatic tricuspid (valve) insufficiency (Chronic) Hypothyroidism (Chronic) Atherosclerotic heart disease of [place] coronary artery without angina pectoris (Chronic) Malaise [...] VISIT REPORT Observed: 08/05/2018 Status: F Source: [facility] 4:55 PM [facility] [address] [address] [place] [address] OFFICE VISIT Date of Service: 08/04/18 MR#: [id number] Acct: [id number] Name: IMANI MINER Rep #: [id number] : 1940 Provider: Lydia Brown Age/Sex: 77/M Location: [facility] Status: Signed Assessment AND Plan 1. EH [...] as gi juan Follow Up 3 Months (ROSY) HPI Sleep concern: Details: This patient presents [...] body aches. 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 [...] CPAP titration study was recommended. 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 Never a smoking, on symbicort for ??? 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 0.5 mL IM Left Deltoid [id number] 09/28/19 8930-9376-50 [employer] VIS Given Date VIS Publication Date 08/04/18 04/27/15 Eligibility Eligibility Date Coding Level of Care Code Off vis,new,level 4 Diagnoses EH (obstructive sleep apnea) G47.33 Restless legs syndrome (RLS) G25.81 Dyspnea on exertion R06.09 08/05/18 1655 <Electronically signed by Lydia Brown ASBESTOS HANDLER-C> Date Lydia Brown ASBESTOS HANDLER-C Cosigner Signature: Date (if applicable) CC: Tania Jackson MD RENAL ARTERY DUPLEX Observed: 06/24/2018 Status: F Source: [facility] 6:26 PM [facility] Cardiovascular Services [address] [place] [address] Renal Artery Duplex Ultrasound 06/24/18 0755 MR#: [id number] Acct: [id number] Name: IMANI MINER Rep #: [id number] : 1940 77 From: Duane Cummings MD Attending Dr: Kike Eaton MD Status: REG CLI Ordering Dr: Kike Eaton MD Date: 06/24/18 Location: [facility] Sex: M C Admitted: Reason For Study: [...] MD; Tania Jackson MD Date Dictated: 06/24/18 075 Date Transcribed: 06/24/181824 [place]: Signed STRESS TEST ECHO W/O Observed: 06/24/2018 Status: F Source: [facility] CONTRAST 3:05 PM [facility] Cardiovascular Services [address] [place] [address] Stress Test Echo w/o Contrast MR#: [id number] Acct: [id number] Name: IMANI MINER Rep #: [id number] : 1940 77 From: Kike Eaton MD [...] Date Dictated: 06/24/18911 Date Transcribed: 06/24/18 150 [place]: Signed CARDIOLOGY VISIT Observed: 06/08/2018 Status: F Source: [facility] REPORT 1:37 PM [facility] [address] [place] [address]. [address] [place] [address] OFFICE VISIT Date of Service: 06/08/18 MR#: [id number] Acct: [id number] Name: IMANI MINER Rep #: [id number] : 1940 Provider: Kike Eaton MD Age/Sex: 77/M Location: [facility] Status: Signed HPI [facility] Chief Complaint: Dyspnea on exertion, fatigue, HTN, [...] statin based medicines. His father of an IN at age 60, and his mother had [...] 58 and HDL of 36. Intake Vital Signs09/18/18 Height 5 ft 8 in 06/08/18 Weight: 189 lb 06/08/18 Body Mass Index (BMI) 28.7 06/08/18 Blood Pressure 120/60 Intake Visit Reasons: HTN, PREV PFM 2013 Bid Clerk Required: No Accompanied by: Is patient in [...] PO DAILY@0800 tab 06/08/18 [History Confirmed 06/08/18] [facility] Medical History Nonrheumatic tricuspid (valve) insufficiency (Chronic) Hypothyroidism (Chronic) Atherosclerotic heart disease of [place] coronary artery without angina pectoris (Chronic) Malaise [...] (Has had headache for 4 days, right adventism and top of head. Severe fatigue); negative [...] AND Plan 1. Atherosclerotic heart disease of [place] coronary artery without angina pectoris I25.10 Nonobstructive CAD, <25% in septal cross tie maker and ramus, per Dr. Dunn @ [facility] Plan 1. Coronary artery disease: The [...] vis,new,level 4 Diagnoses Atherosclerotic heart disease of [place] coronary artery without angina pectoris I25.10 Hyperlipidemia E78.5 Hypertension I10 Somnolence, daytime R40.0 Coding Level of Care Code Off vis,new,level 4 Diagnoses Atherosclerotic heart disease of [place] coronary artery without angina pectoris I25.10 Hyperlipidemia E78.5 Hypertension I10 Somnolence, daytime R40.0 06/08/18 1337 <Electronically signed by Kike Eaton MD> Date Kike Eaton MD Cosigner Signature: Date (if applicable) CC: Tania Jackson MD 12 LEAD EKG PERFORMED Observed: 06/08/2018 Status: F Source: [facility] 1:27 PM [facility] [place] [address] [place] [address] 12 Lead EKG performed by [facility] 06/08/18 1326 MR#: [id number] Acct: [id number] Name: IMANI MINER Rep #: [id number] : 1940 77 From: Kike Eaton MD Attending Dr: Kike Eaton MD Status: DEP AMB Ordering Dr: Kike Eaton MD Date: 06/08/18 Location: [facility] Sex: M C Admitted: [facility]/12 Lead EKG performed by [facility] ECG Report Interpretation Sinus Rhythm -Left axis -anterior fascicular block. ABNORMAL Electronically signed on 09/03/2018 at 15:03 by Kike Eaton Software Version 8610 09/03/18 1506 Date Kike Eaton MD CC: Tania Jackson MD Date Dictated: 06/08/18 1326 Date Transcribed: 06/08/18 1326 [place]: Signed INTERNAL MEDICINE Observed: 05/25/2018 Status: F Source: [facility] OFFICE VISIT 8:49 AM [facility] [address] [place] [address] OFFICE VISIT Date of Service: 05/21/18 MR#: [id number] Acct: [id number] Name: IMANI MINER Rep #: [id number] : 1940 Provider: Huber Solano NP Age/Sex: 77/M Location: [facility] Status: Signed Intake Vital Signs05/21/18 Height [...] DAILY #30 tab 05/21/18 [Rx Confirmed 05/21/18] PFSH Medical History Arthritis (Acute) Hay fever [...] oriented x3 Limitations: mental status not altered HENMT Head: normal to inspection Ears: hearing grossly [...] cardiac etiology, seems musculoskeletal and recommended take amcg-soy-xarqvbf analgesics as this provides moderate relief of [...] F41.9 05/25/18 0849 <Electronically signed by Huber MAGALLANESC> Date Huber Solano NP-Dustin Grayigner Signature: Date (if applicable) CC: INTERNAL MEDICINE Observed: 04/28/2018 Status: F Source: [facility] OFFICE VISIT 10:46 AM [facility] [address] [place] [address] [place] [address] OFFICE VISIT Date of Service: 04/27/18 MR#: [id number] Acct: [id number] Name: IMANI MINER Rep #: [id number] : 1940 Provider: Huber Solano NP Age/Sex: 77/M Location: [facility] Status: Signed Intake Vital Signs04/27/18 Height 5 [...] [History Confirmed 04/27/18] Allergy Shot IM QWEEK 11/23/16 [History Confirmed 04/27/18] Bilberry 100 mg PO [...] BID #180 tab 04/27/18 [Rx Confirmed 04/27/18] [facility] Medical History Arthritis (Acute) Hay [...] oriented x3 Limitations: mental status not altered [facility] Head: normal to inspection, normocephalic, atraumatic Eyes [...] F Source: [facility] OFFICE VISIT 1:32 PM [facility] [place] [address] [place] [address] OFFICE VISIT Date of Service: 04/20/18 MR#: [id number] Acct: [id number] Name: IMANI MINER Rep #: [id number] : 1940 Provider: Tania Jackson MD Age/Sex: 77/M Location: [facility] Status: Signed Intake Vital Signs04/20/18 Height [...] acute distress Orientation: alert, awake, oriented x3 [facility] Head: atraumatic, normocephalic Ears: hearing grossly normal [...] with results. This note was generated with [employer] software. It may contain incorrect words, spelling, [...] 0.85 Performed By: #### L100.0100, L500.4050, L501.9520, L503.6075, L503.6150, L503.6550, L506.0400 #### [facility] [address] [place], [address] COMPREHENSIVE METABOLIC Collected: 04/20/2018 Status: F Source: [facility] 12:41 PM [facility] [...] L500.4050, L501.9520, L503.6075, L503.6150, L503.6550, L506.0400 #### [facility] [address] [facility] [place], [place], [address] THYROID STIM HORMONE Collected: 04/20/2018 Status: F Source: [facility] ([facility]) 12:41 PM [facility] TYPE CODE TESTS RESULT OUT OF RANGE REFERENCE UNITS LAB L501.9520 0.358-3.74 uIU/mL Normal TSH 0.47 Performed By: #### L100.0100, L500.4050, L501.9520, L503.6075, L503.6150, L503.6550, L506.0400 #### [facility] [address] [facility] [place], [place], [id number] IRON BINDING Collected: 04/20/2018 Status: F Source: [facility] 12:41 PM [facility] TYPE CODE TESTS RESULT OUT OF RANGE REFERENCE UNITS LAB L503.6075 250-450 ug/dL Normal TIBC 394 Performed By: #### L100.0100, L500.4050, L501.9520, L503.6075, L503.6150, L503.6550, L506.0400 #### [facility] [address] [place], [address] IRON Collected: 04/20/2018 Status: F Source: [facility] 12:41 PM [facility] TYPE CODE TESTS RESULT OUT OF RANGE REFERENCE UNITS LAB L503.6150 65-175 ug/dL Normal IRON 130 Performed By: #### L100.0100, L500.4050, L501.9520, L503.6075, L503.6150, L503.6550, L506.0400 #### [facility] [address] [place], [place], [address] FERRITIN Collected: 04/20/2018 Status: F Source: [facility] 12:41 PM [facility] TYPE CODE TESTS RESULT OUT OF RANGE REFERENCE UNITS LAB L503.6550 26-388 ng/mL Normal FERRITIN 74 Performed By: #### L100.0100, L500.4050, L501.9520, L503.6075, L503.6150, L503.6550, L506.0400 #### [facility] [address] [place], [place], [address] T4 FREE DIRECT Collected: 04/20/2018 Status: F Source: [facility] 12:41 PM [facility] TYPE CODE TESTS RESULT OUT OF RANGE REFERENCE UNITS LAB L506.0400 0.76-1.46 ng/dL Normal T4 FREE 1.30 DIRECT Performed By: #### L100.0100, L500.4050, L501.9520, L503.6075, L503.6150, L503.6550, L506.0400 #### [facility] [address] [place], [address] INTERNAL MEDICINE Observed: 03/30/2018 Status: F Source: [facility] OFFICE VISIT 4:57 PM [facility] [address] [place] [address] [place] [address] OFFICE VISIT Date of Service: 03/30/18 MR#: [id number] Acct: [id number] Name: IMANI MINER Rep #: [id number] : 1940 Provider: Huber Solnao NP Age/Sex: 77/M Location: [facility] Status: Signed Intake Vital Signs03/30/18 Height 5 [...] 2.5 mg daily. Also encouraged patient to bulk picker compression stockings, 10-15 mmHg. Patient educated to [...] medical care. This note was generated with [employer] software. It may contain incorrect words, spelling, and punctuation that were not noted in checking the note before signing. Plan Detail Follow Up 4 Weeks Coding Level of Care Code Off vis,est,level 3 Diagnoses Bilateral lower extremity edema R60.0 HTN (hypertension) I10 03/30/18 1657 <Electronically signed by Huber HAQ> Date Huber HAQ Cosigner Signature: Date (if applicable) CC: INTERNAL MEDICINE Observed: 02/05/2018 Status: F Source: [facility] OFFICE VISIT 1:42 PM [facility] [address] [place] [address] [place] [address] OFFICE VISIT Date of Service: 02/05/18 MR#: [id number] Acct: [id number] Name: IMANI MINER Rep #: [id number] : 1940 Provider: Tania Jackson MD Age/Sex: 77/M Location: [facility] Status: Signed Intake Vital Signs02/05/18 Height [...] 02/05/18] Cyanocobalamin [Vitamin B12] 2,500 mcg PO DAILY@0803/20/14 [History Confirmed 02/05/18] Finasteride [Proscar] 5 mg [...] extremity rash. 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 He denies [...] Off vis,est,level 3 Diagnoses Dermatitis L30.9 02/05/18 1342 <Electronically signed by Tania Jackson MD> Date Tania Jackson MD Cosigner Signature: Date (if applicable) CC: INTERNAL MEDICINE Observed: 02/02/2018 Status: F Source: [facility] OFFICE VISIT 4:27 PM [facility] [address] [place] [address] [place] [address] OFFICE VISIT Date of Service: 02/02/18 MR#: [id number] Acct: [id number] Name: IMANI MINER Rep #: [id number] : 1940 Provider: Tania Jackson MD Age/Sex: 77/M Location: [facility] Status: Signed Intake Vital Signs02/02/18 Height [...] acute distress Orientation: alert, awake, oriented x3 [facility] Head: atraumatic, normocephalic Ears: hearing grossly normal [...] next visit. This note was generated with [employer] software. It may contain incorrect words, spelling, and punctuation that were not noted in checking the note before signing. Plan Detail Other Medications New: Discontinued: Coding Level of Care Code Off vis,est,level 3 Diagnoses Lower extremity edema R60.0 Dermatitis L30.9 Hypertension I10 02/02/18 1627 <Electronically signed by Tania Jackson MD> Date Tania Jackson MD Cosigner Signature: Date (if applicable) CC: URGENT CARE VISIT Observed: 01/04/2018 Status: F Source: [facility] REPORT 10:51 AM [facility] [address] [place] [address] OFFICE VISIT Date of Service: 01/04/18 MR#: [id number] Acct: [id number] Name: IMANI MINER Rep #: [id number] : 1940 Provider: Jaden WELLINGTON Age/Sex: 77/M Location: [facility] Status: Signed Intake Vital Signs01/04/18 Height 5 [...] the above. This note was generated with [employer] dictation software. It may contain incorrect words, [...] F Source: [facility] OFFICE VISIT 8:19 AM [facility] [address] [facility] [address] [place] [address] OFFICE VISIT Date of Service: 11/20/17 MR#: [id number] Acct: [id number] Name: IMANI MINER Rep #: [id number] : 1940 Provider: Tania Jackson MD Age/Sex: 76/M Location: [facility] Status: Signed Intake Vital Signs11/20/17 Height 5 [...] well developed Orientation: alert, awake, oriented x3 [facility] Head: normal to inspection, normocephalic, atraumatic Ears: [...] symptoms worsen. This note was generated with [employer] software. It may contain incorrect words, spelling, and punctuation that were not noted in checking the note before signing. Plan Detail Other Medications Refilled: Coding Level of Care Code Off vis,est,level 3 Diagnoses Benign essential hypertension I10 Dermatitis L30.9 11/23/17 0819 <Electronically signed by Tania aJckson MD> Date Tania Jackson MD Cosigner Signature: Date (if applicable) CC: INTERNAL MEDICINE Observed: 10/23/2017 Status: F Source: [facility] OFFICE VISIT 4:49 PM [facility] [address] [place] [address] OFFICE VISIT Date of Service: 10/19/17 MR#: [id number] Acct: [id number] Name: IMANI MINER Rep #: [id number] : 1940 Provider: Tania Jackson MD Age/Sex: 76/M Location: [facility] Status: Signed Intake Vital Signs10/19/17 Height 5 ft 7 in 10/19/17 Weight: 190 lb 8 oz Intake Visit Reasons: 3 M FU Bid Clerk Required: No Accompanied by: Is patient in [...] well developed Orientation: alert, awake, oriented x3 [facility] Head: normal to inspection, normocephalic, atraumatic Ears: [...] 1 month. This note was generated with [employer] software. It may contain incorrect words, spelling, and punctuation that were not noted in checking the note before signing. Plan Detail Other Medications New: Follow Up 1 Month Coding Level of Care Code Off vis,est,level 3 Diagnoses Epistaxis, recurrent R04.0 Hypertension I10 10/23/17 3289 <Electronically signed by Tania Jackson MD> Date Tania Jackson MD Cosigner Signature: Date (if applicable) CC: Observed: 10/23/2017 Status: F Source: [facility] CULTURE, URINE 10:39 AM [facility] [place] [facility] [place] Urine Culture Culture exhibits no growth. Performed By: #### M100.0650 #### [facility] Laboratory [facility] [place], [address] ALLERGIES ALLERGIES DATE TYPE / CODE NAME / CODE REACTION SEVERITY SOURCE 09/20/2018 Drug lisinopril/I55702 cough [place] Allergy/416 0658(RXNORM) [facility] 919542([facility] ED CT) Repository 09/20/2018 Drug niacin/[id number] Other Unknown Hali Allergy/416 (RXNORM) [facility] 894044([facility] ED CT) Repository 09/20/2018 Drug gemfibrozil/F0060 Pain in joints Unknown [place]ali Allergy/416 18241(RXNORM) [facility] 655077([facility] ED CT) Repository 09/20/2018 Drug clavulanic Nausea/Vom/Diar [place]ali Allergy/416 acid/[id number](R mikey [facility] 074649([facility] ED CT) Repository 09/20/2018 Drug amoxicillin/F0060 Nausea/Vom/Diar [place]ali Allergy/416 76804(RXNORM) mikey [facility] 230729([facility] ED CT) Repository 09/20/2018 Drug atorvastatin/F006 Pain in joints Unknown [place] Allergy/416 091512(RXNORM) [facility] 646577([facility] ED CT) Repository ENCOUNTERS ENCOUNTERS ADMIT/DISCHARGE ACCOUNT ADMITTING ENCOUNTER LOCATION SOURCE NUMBER CLASS 10/11/2018 [id number] Ambulatory Hali Hali 3 [facility] ing:CR Repository 10/05/2018 [id number] Ambulatory [place] 3 [facility] ing:CR Repository 09/20/2018/ [id number] Ambulatory BMSBuilding:B [place] 8 6 [facility] Repository 09/16/2018 [id number] Ambulatory BMSBuilding:B [place] 3 [facility] Repository 09/11/2018/ [id number] Emergency Hali [place] 8 9 [facility] ing:ED Repository 09/08/2018 [id number] Ambulatory BMSBuilding:B Hali 3 [facility] Repository 09/07/2018/ [id number] Ambulatory Hali Hali 8 8 [facility] ing:CLSPRoom: Repository [id number] 09/07/2018 [id number] Ambulatory BMSBuilding:W [place] 9 [facility] Repository 09/06/2018 [id number] Ambulatory BMSBuilding:B Hali 9 [facility] Repository 09/06/2018/ [id number] Ambulatory BMSBuilding:B Hali 8 6 [facility] Repository 09/03/2018 [id number] Ambulatory [place] 1 [facility] Hospital ing:LAB Repository 09/03/2018 [id number] Ambulatory BMSBuilding:W [place] 2 [facility] Repository 09/01/2018 [id number] Ambulatory Hali Hali 4 [facility] Hospital ing:LAB Repository 09/01/2018/ [id number] Ambulatory BMSBuilding:B Hali 8 3 [facility] Repository 08/30/2018 [id number] Ambulatory [place] Hali 1 [facility]SL Repository 08/26/2018 [id number] Ambulatory Hali [place] 4 [facility] Hospital ing:CT Repository 08/24/2018/ [id number] Ambulatory BMSBuilding:B Hali 8 4 [facility] Repository 08/24/2018/ [id number] Ambulatory [place] Hali 8 6 [facility] Hospital ing:ENRoom: Repository AC14 08/20/2018 [id number] Ambulatory BMSBuilding:W [place] 6 [facility] Repository 08/20/2018 [id number] Ambulatory [place] Hali 1 [facility] Hospital ing:PSN Repository 08/06/2018/ [id number] Ambulatory BMSBuilding:B Hali 8 0 [facility] Repository 08/04/2018/ [id number] Ambulatory BMSBuilding:B [place] 8 2 [facility] Repository 08/03/2018/ [id number] Ambulatory BMSBuilding:B Hali 8 5 [facility] Repository 07/19/2018 [id number] Ambulatory Hali Hali 8 [facility] ing:SL Repository 06/24/2018 [id number] Ambulatory BMSBuilding:B Hali 8 [facility] Repository 06/24/2018 [id number] Ambulatory BMSBuilding:B Hali 2 [facility] Repository 06/24/2018 [id number] Ambulatory [place] Hali 1 [facility] Hospital ing:CVS Repository 06/08/2018/ [id number] Ambulatory BMSBuilding:B Hali 8 1 [facility] Repository 05/21/2018/ [id number] Ambulatory BMSBuilding:B Hali 8 9 [facility] Repository 04/27/2018/ [id number] Ambulatory BMSBuilding:B Hali 8 8 [facility] Repository 04/20/2018 [id number] Ambulatory Hali Hali 1 [facility] Hospital ing:MTLAB Repository 04/20/2018/ [id number] Ambulatory BMSBuilding:B Hali 8 1 [facility] Repository 03/30/2018/ [id number] Ambulatory BMSBuilding:B Hali 8 6 [facility] Repository 02/22/2018/ [id number] Ambulatory BMSBuilding:B [place] 8 6 [facility] Repository 02/09/2018 [id number] Ambulatory BMSBuilding:B [place] 7 [facility] Repository 02/05/2018/ [id number] Ambulatory BMSBuilding:B [place] 8 4 [facility] Repository 02/02/2018/ [id number] Ambulatory BMSBuilding:B [place] 8 0 [facility] Repository 01/04/2018/ [id number] Ambulatory BMSBuilding:B Hali 8 9 [facility] Repository 11/20/2017/ [id number] Ambulatory BMSBuilding:B Hali 8 3 [facility] Repository 10/23/2017 [id number] Ambulatory [place] Hali 6 [facility] Hospital ing:MTLAB Repository 10/19/2017/ [id number] Ambulatory BMSBuilding:B [place] 8 5 [facility] Repository PAYERS PAYERS ENCOUNTER GUARANTOR PAYER SUBSCRIBER SOURCE 10/11/2018 IMANI MINER1445 [place] Insurance:MEDICARE BROWNDOB: [facility] katharine ANDRES PART A BPolicy Number: [id number] Hospital 08318Sgi: 330 [id number] Repository [phone] () Date:2018-10-05 10/11/2018 Secondary IMANI Barry Hali Insurance:HUMANA BROWNDOB: [facility] COMMERCIALPoly [id number] Hospital Number: Repository [id number] Date:4743-12-25WA [address] [address]ES: 10/11/2018 Tertiary NOT GIVENUNK [place] Insurance:SELF PAY [facility] Hospital Number: Effective Repository Date:2018-10-05 10/05/2018 IMANI W Primary IMANI PUENTES5 [place] Insurance:MEDICARE BROWNDOB: [place] PART A BPolicy Number: [id number] Hospital 64706Ibx: 330 [id number] Repository [phone] () Date:2018-09-22 10/05/2018 Secondary IMANI Barry [place] Insurance:HUMANA BROWNDOB: [facility] COMMERCIALPolicy [id number] Hospital Number: Repository [id number] Date:7625-58-57GS [address] [address]JU: 10/05/2018 Tertiary NOT GIVENUNK Hali Insurance:SELF PAY [facility] Hospital Number: Effective Repository Date:2018-09-22 09/20/2018 IMANI W Primary IMANI PUENTES5 MARSH Insurance:MEDICARE BROWNDOB: [place] PART A BPolicy Number: [id number] Hospital 47145Jzb: 330 [id number] Repository [phone] () Date:2018-09-07 09/20/2018 Secondary IMANI Barry [place] Insurance:HUMANA BROWNDOB: [facility] [id number] Hospital Number: Repository [id number] Date:8886-48-23FZ [address] [address]RU: 09/20/2018 Tertiary NOT GIVENUNK [place] Insurance:SELF PAY [facility] Hospital Number: Effective Repository Date:2018-09-20 09/16/2018 IMANI Barry Primary IMANI MARSH Insurance:MEDICARE [place]OB[place] PART A BPolicy Number: [id number] Hospital 21147Ygu: 330 [id number] Repository [phone] (HP) Date:2018-09-16 09/16/2018 Secondary IMANI Lal Insurance:HUMANA BROWNDOB: [facility] COMMERCIALPolicy [id number] Hospital Number: Repository [id number] Date:6833-26-66XX [address] [place] [address]WV: 09/16/2018 Tertiary NOT GIVENUNK [place] Insurance:SELF PAY [facility] Hospital Number: Effective Repository Date:2018-09-16 09/11/2018 IMANI W Primary IMANI MRASH Insurance:MEDICARE BROWNDOB: [place] PART A BPolicy Number: [id number] Hospital 377[address]Upd: 330 [id number] Repository [phone] (HP) Date:2018-09-11 09/11/2018 Secondary IMANI Lal Insurance:HUMANA BROWNDOB: [facility]CIAL[facility] [id number] Hospital Number: Repository [id number] Date:3075-85-80VF [address] [place] [address]HY: 09/11/2018 Tertiary NOT GIVENUNK Hali Insurance:SELF PAY [facility] Hospital Number: Effective Repository Date:2018-09-11 09/08/2018 IMANI Barry Primary IMANI MARSH Insurance:MEDICARE BROWNDOB: [place] PART A BPolicy Number: [id number] Hospital 23883Taz: 330 [id number] Repository [phone] (HP) Date:2018-09-03 09/08/2018 Secondary IMANI Lal Insurance:HUMANA BROWNDOB: [facility] COMMERCIALPolicy [id number] Hospital Number: Repository [id number] Date:6072-74-44MF[address] [address]LB: 09/08/2018 Tertiary NOT GIVENUNK [place]ali Insurance:SELF PAY [facility] Number: Effective Repository Date:2018-09-08 09/07/2018 IMANI Barry Primary IMANI PUENTES5 [place] Insurance:MEDICARE BROWNDOB: [place] PART A BPolicy Number: [id number] Hospital 14174Pzk: (046) [id number] Repository [phone] () Date:2018-09-03 09/07/2018 Secondary IMANI Lal Insurance:HUMANA BROWNDOB: [facility] [id number] Hospital Number: Repository [id number] Date:7174-58-98XE[address] [address]YL: 09/07/2018 Tertiary NOT GIVENUNK Hali Insurance:SELF PAY [facility] Hospital Number: Effective Repository Date:2018-09-03 09/07/2018 IMANI W Primary IMANI PUENTES5 [place] Insurance:MEDICARE BROWNDOB: [facility] [place] PART A BPolicy Number: [id number] Hospital 750[address]Fca: (520) [id number] Repository [phone] () Date:2018-09-03 09/07/2018 Secondary IMANI Lal Insurance:HUMANA BROWNDOB: [facility] [id number] Hospital Number: Repository [id number] Date:4172-96-31OM[address] [address]DJ: 09/07/2018 Tertiary NOT GIVENUNK [place] Insurance:SELF PAY [facility] Hospital Number: Effective Repository Date:2018-09-07 09/06/2018 IMANI Barry Primary IMANI PUENTES5 [place] Insurance:MEDICARE BROWNDOB: [facility] [place] PART A BPolicy Number: [id number] Hospital 00777Qek: (072) [id number] Repository [phone] () Date:2018-09-06 09/06/2018 Secondary IMANI Barry [place] Insurance:HUMANA BROWNDOB: [facility] COMMERCIALPoly [id number] Hospital Number: Repository [id number] Date:6389-76-92CQ [address] [address]MY: 09/06/2018 Tertiary NOT GIVENUNK [place] Insurance:SELF PAY [facility] Hospital Number: Effective Repository Date:2018-09-06 09/06/2018 IMANI W Primary IMANI MINER1445 [place] Insurance:MEDICARE BROWNDOB: [place] PART A BPolicy Number: [id number] Hospital 50171Apw: 330 [id number] Repository [phone] () Date:2018-09-03 09/06/2018 Secondary IMANI Barry Hali Insurance:HUMANA BROWNDOB: [facility] [id number] Hospital Number: Repository [id number] Date:6727-18-29RT [address] [address]VN: 09/06/2018 Tertiary NOT GIVENUNK [place] Insurance:SELF PAY [facility] Hospital Number: Effective Repository Date:2018-09-06 09/03/2018 IMANI W Primary IMANI MINER1445 [place] Insurance:MEDICARE BROWNDOB: [place] PART A BPolicy Number: [id number] Hospital 698[address]Eeh: 330 [id number] Repository [phone] () Date:2018-09-03 09/03/2018 Secondary IMANI Barry Hali Insurance:HUMANA BROWNDOB: [facility] [id number] Hospital Number: Repository [id number] Date:7125-74-51IU [address] [address]QR: 09/03/2018 Tertiary NOT GIVENUNK Hali Insurance:SELF PAY [facility] Hospital Number: Effective Repository Date:2018-09-03 09/03/2018 IMANI Barry Primary IMANI MINER1445 [place] Insurance:MEDICARE BROWNDOB: [place] PART A BPolicy Number: [id number] Hospital 55655Zlk: 330 [id number] Repository [phone] () Date:2018-09-01 09/03/2018 Secondary IMANI Lal Insurance:HUMANA BROWNDOB: [facility] COMM[facility]CIAL[facility] [id number] Hospital Number: Repository [id number] Date:5111-89-77IQ [address] [place] [address]MA: 09/03/2018 Tertiary NOT GIVENUNK Hali Insurance:SELF PAY [facility] Hospital Number: Effective Repository Date:2018-09-01 09/01/2018 IMANI W Primary IMANI MINER1445 [place] Insurance:MEDICARE BROWNDOB: [facility] PART A BPolicy Number: [id number] Hospital 68124Tpx: 330 [id number] Repository [phone] () Date:2018-09-01 09/01/2018 Secondary IMANI Lal Insurance:HUMANA BROWNDOB: [facility] [id number] Hospital Number: Repository [id number] Date:4467-47-22AP [address] [address]XY: 09/01/2018 Tertiary NOT GIVENUNK [place] Insurance:SELF PAY [facility] Hospital Number: Effective Repository Date:2018-09-01 09/01/2018 IMANI W Primary IMANI MINER1445 [place] Insurance:MEDICARE BROWNDOB: [facility] PART A BPolicy Number: [id number] Hospital 01007Mtr: 330 [id number] Repository [phone] () Date:2018-09-01 09/01/2018 Secondary IMANI Lal Insurance:HUMANA BROWNDOB: [facility]CIALB[facility] Center[facility] [id number] Hospital Number: Repository [id number] Date:4506-53-58UI [address] [address]AD: 09/01/2018 Tertiary NOT GIVENUNK [place] Insurance:SELF PAY [facility] Hospital Number: Effective Repository Date:2018-09-01 08/30/2018 IMANI Barry Primary IMANI PUENTES5 [place] Insurance:MEDICARE BROWNDOB: [place] PART A BPolicy Number: [id number] Hospital 62326Syy: 330 [id number] Repository [phone] () Date:2018-08-05 08/30/2018 Secondary IMANI Barry Hali Insurance:HUMANA BROWNDOB: [facility] [id number] Hospital Number: Repository [id number] Date:4166-02-07IM [address] [address]TL: 08/30/2018 Tertiary NOT GIVENUNK Hali Insurance:SELF PAY [facility] Hospital Number: Effective Repository Date:2018-08-05 08/26/2018 IMANI Asha Primary IMANI PUENTES5 [place] Insurance:MEDICARE BROWNDOB: [place] PART A BPolicy Number: [id number] Hospital 33589Xzl: 330 [id number] Repository [phone] () Date:2018-08-16 08/26/2018 Secondary IMANI Barry [place] Insurance:HUMANA BROWNDOB: [facility] [id number] Hospital Number: Repository [id number] Date:1975-67-12DY [address] [address]VA: 08/26/2018 Tertiary NOT GIVENUNK H[place] Insurance:SELF PAY [facility] Hospital Number: Effective Repository Date:2018-08-16 08/24/2018 IMANI Barry Primary IMANI PUENTES5 [place] Insurance:MEDICARE BROWNDOB: [place] PART A BPolicy Number: [id number] Hospital 34094Lzw: (457) [id number] Repository [phone] (HP) Date:2018-08-06 08/24/2018 Secondary IMANI Barry [place] Insurance:HUMANA BROWNDOB: Community COMMERCIALPolicy [id number] Hospital Number: Repository [id number] Date:1322-75-32ZG [place] 758[address]12[address]WP: 08/24/2018 Tertiary NOT GIVENUNK [place] Insurance:SELF PAY [facility] Hospital Number: Effective Repository Date:2018-08-24 08/24/2018 IMANI W Primary IMANI PUENTES5 [place] Insurance:MEDICARE BROWNDOB: [place] PART A BPolicy Number: [id number] Hospital 01333Wuj: 330 [id number] Repository [phone] () Date:2018-08-06 08/24/2018 Secondary IMANI Barry Hali Insurance:HUMANA BROWNDOB: [facility] COMMERCIALPolicy [id number] Hospital Number: Repository [id number] Date:1646-43-73FU[address] [address]OL: 08/24/2018 Tertiary NOT GIVENUNK [place] Insurance:SELF PAY [facility] Hospital Number: Effective Repository Date:2018-08-06 08/20/2018 IMANI Barry Primary IMANI PUENTES5 [place] Insurance:MEDICARE BROWNDOB: [place] PART A BPolicy Number: [id number] Hospital 92702Ocn: 330 [id number] Repository [phone] () Date:2018-08-04 08/20/2018 Secondary IMANI Lal Insurance:HUMANA BROWNDOB: [facility] COMMERCIALPolicy [id number] Hospital Number: Repository [id number] Date:0076-56-26ZT[address] [address]LI: 08/20/2018 Tertiary NOT GIVENUNK [place] Insurance:SELF PAY [facility] Hospital Number: Effective Repository Date:2018-08-20 08/20/2018 IMANI W Primary IMANI PUENTES5 [place] Insurance:MEDICARE BROWNDOB: [facility] PART A BPolicy Number: [id number] Hospital 50853Lbm: 330 [id number] Repository [phone] () Date:2018-08-04 08/20/2018 Secondary IMANI Lal Insurance:HUMANA BROWNDOB: [facility] [id number] Hospital Number: Repository [id number] Date:8856-40-94DZ [address] [address]YV: 08/20/2018 Tertiary NOT GIVENUNK [place] Insurance:SELF PAY [facility] Hospital Number: Effective Repository Date:2018-08-04 08/06/2018 IMANI Barry Primary IMANI MINER1445 [place] Insurance:MEDICARE BROWNDOB: [facility] [place] PART A BPolicy Number: [id number] Hospital 12901Shb: 330 [id number] Repository [phone] () Date:2018-07-19 08/06/2018 Secondary IMANI Lal Insurance:HUMANA BROWNDOB: [facility] [id number] Hospital Number: Repository [id number] Date:6451-70-76DO [address] [address]PT: 08/06/2018 Tertiary NOT GIVENUNK [place] Insurance:SELF PAY [facility] Hospital Number: Effective Repository Date:2018-08-04 08/04/2018 IMANI W Primary IMANI MINER1445 [place] Insurance:MEDICARE BROWNDOB: [facility] PART A BPolicy Number: [id number] Hospital 88794Sqk: 330 [id number] Repository [phone] () Date:2018-07-08 08/04/2018 Secondary IMANI Lal Insurance:HUMANA BROWNDOB: [facility] [id number] Hospital Number: Repository [id number] Date:4355-89-34HM [address] [address]AS: 08/04/2018 Tertiary NOT GIVENUNK [place] Insurance:SELF PAY [facility] Hospital Number: Effective Repository Date:2018-07-29 08/03/2018 IMANI Barry Primary IMANI PUENTES5 [place] Insurance:MEDICARE BROWNDOB[place] PART A BPolicy Number: [id number] Hospital 66335Icm: ([phone] [id number] Repository [phone] () Date:2018-04-27 08/03/2018 Secondary IMANI Lal Insurance:HUMANA BROWNDOB: [facility] [id number] Hospital Number: Repository [id number] Date:6506-72-70RF[address] [address]NB: 08/03/2018 Tertiary NOT GIVENUNK [place] Insurance:SELF PAY [facility] Hospital Number: Effective Repository Date:2018-08-03 07/19/2018 IMANI Barry Primary IMANI PUENTES5 [place] Insurance:MEDICARE BROWNDOB: [place] PART A BPolicy Number: [id number] Hospital 98285Pei: (563) [id number] Repository [phone] () Date:2018-06-28 07/19/2018 Secondary IMANI [place] Insurance:HUMANA BROWNDOB: [facility] [id number] Hospital Number: Repository [id number] Date:9251-54-23NK[address] [address]ZY: 07/19/2018 Tertiary NOT GIVENUNK [place] Insurance:SELF PAY [facility] Hospital Number: Effective Repository Date:2018-06-28 06/24/2018 IMANI Barry Primary IMANI MARSH Insurance:MEDICARE BROWNDOB: [place] PART A BPolicy Number: [id number] Hospital 45548Wdc: (126) [id number] Repository [phone] () Date:2018-06-08 06/24/2018 Secondary IMANI Barry Hali Insurance:HUMANA BROWNDOB: [facility] COMMERCIALPolicy [id number] Hospital Number: Repository [id number] Date:7927-21-47AL[address] [address]RY: 06/24/2018 Tertiary NOT GIVENUNK [place] Insurance:SELF PAY [facility] Hospital Number: Effective Repository Date:2018-06-24 06/24/2018 IMANI Barry Primary IMANI PUENTES5 [place] Insurance:MEDICARE BROWNDOB: [place] PART A BPolicy Number: [id number] Hospital 66763Plz: (743) [id number] Repository [phone] () Date:2018-06-08 06/24/2018 Secondary IMANI Barry [place] Insurance:HUMANA BROWNDOB: [facility] COMMERCIALPolicy [id number] Hospital Number: Repository [id number] Date:9683-31-50MI[address] [address]KH: 06/24/2018 Tertiary NOT GIVENUNK [place] Insurance:SELF PAY [facility] Hospital Number: Effective Repository Date:2018-06-24 06/24/2018 IMANI W Primary IMANI PUENTES5 [place] Insurance:MEDICARE BROWNDOB: [place] PART A BPolicy Number: [id number] Hospital 29633Klp: (596) [id number] Repository [phone] () Date:2018-06-08 06/24/2018 Secondary IMANI Barry Hali Insurance:HUMANA BROWNDOB: [facility] COMMERCIALPolicy [id number] Hospital Number: Repository [id number] Date:1514-44-40SG[address] [address]AS: 06/24/2018 Tertiary NOT GIVENUNK [place] Insurance:SELF PAY [facility] Hospital Number: Effective Repository Date:2018-06-08 06/08/2018 IMANI W Primary IMANI PUENTES5 [place] Insurance:MEDICARE BROWNDOB: [place] PART A BPolicy Number: [id number] Hospital 79422Hcn: (207) [id number] Repository [phone] () Date:2018-06-01 06/08/2018 Secondary IMANI Barry Hali Insurance:HUMANA BROWNDOB: [facility] [id number] Hospital Number: Repository [id number] Date:4661-71-87ID[address] [address]VA: 06/08/2018 Tertiary NOT GIVENUNK [place] Insurance:SELF PAY [facility] Hospital Number: Effective Repository Date:2018-06-08 05/21/2018 IMANI W Primary IMANI PUENTES5 [place] Insurance:MEDICARE BROWNDOB: [facility] [place] PART A BPolicy Number: [id number] Hospital 69[address]Bad: (603) [id number] Repository [phone] () Date:2018-05-21 05/21/2018 Secondary IMANI Asha [place] Insurance:HUMANA BROWNDOB: [facility] COMMERCIALPolicy [id number] Hospital Number: Repository [id number] Date:3730-62-93XU [address] [address]VM: 05/21/2018 Tertiary NOT GIVENUNK [place] Insurance:SELF PAY [facility] Hospital Number: Effective Repository Date:2018-05-21 04/27/2018 IMANI W Primary IMANI MINER1445 [place] Insurance:MEDICARE BROWNDOB: [facility] PART A BPolicy Number: [id number] Hospital 30736Wxu: (240) [id number] Repository [phone] () Date:2018-03-30 04/27/2018 Secondary IMANI Barry [place] Insurance:HUMANA MORGANDOB: [facility] [id number] Hospital Number: Repository [id number] Date:3514-77-23EL[address] [address]EG: 04/27/2018 Tertiary NOT GIVENUNK [place] Insurance:SELF PAY [facility] Hospital Number: Effective Repository Date:2018-04-27 04/20/2018 IMANI W Primary IMANI PUENTES5 [place] Insurance:MEDICARE BROWNDOB: [place] PART A BPolicy Number: [id number] Hospital 38703Lur: (637) [id number] Repository [phone] () Date:2018-04-20 04/20/2018 Secondary IMANI W [place] Insurance:HUMANA BROWNDOB: [facility] [id number] Hospital Number: Repository [id number] Date:2264-32-62NB[address] [address]UD: 04/20/2018 Tertiary NOT GIVENUNK [place] Insurance:SELF PAY [facility] Hospital Number: Effective Repository Date:2018-04-20 04/20/2018 IMANI W Primary IMANI [id number] [place] Insurance:MEDICARE [place] PART A BPolicy Number: [id number] Hospital [address]902Ynu: [id number] Repository [phone] () Date:2018-04-20 04/20/2018 Secondary IMANI Barry Hali Insurance:HUMANA BROWNDOB[facility] [id number] Hospital Number: Repository [id number] Date:[id number] [address]FF: 04/20/2018 Tertiary NOT GIVENUNK [place] Insurance:SELF PAY [facility] Hospital Number: Effective Repository Date:2018-04-20 03/30/2018 IMANI W Primary IMANI [id number] [place] Insurance:MEDICARE [place] BPolicy Number: [id number] Hospital [address]13[address]Bwz: (248) [id number] Repository [phone] () Date:2018-03-29 03/30/2018 Secondary IMANI W [place] Insurance:HUMANA BROWNDOB: [facility] [id number] Hospital Number: Repository [id number] Date:[id number] [address]OR: 03/30/2018 Tertiary NOT GIVENUNK [place] Insurance:SELF PAY [facility] Number: Effective Repository Date:2018-03-30 02/22/2018 IMANI Barry Primary IMANI MARSH Insurance:MEDICARE [place] BPolicy Number: [id number] Hospital [address]Xrm: [id number] Repository [phone] Date:2017-11-20 0-7 (HP) 02/22/2018 Secondary IMANI Barry Hali Insurance:HUMANA BROWNDOB: [facility] [id number] Hospital Number: Repository [id number] Date:[id number] [address] [address]MV: 02/22/2018 Tertiary NOT GIVENUNK [place] Insurance:SELF PAY [facility] Number: Effective Repository Date:2018-03-04 02/09/2018 IMANI W Primary IMANI MARSH Insurance:MEDICARE [place] BPolicy Number: [id number] Hospital [address]Fcw: [id number] Repository [phone] Date:2018-02-05 0-7 (HP) 02/09/2018 Secondary IMANI Barry Hali Insurance:HUMANA BROWNDOB: Community COMMERCIALPolicy [id number] Hospital Number: Repository [id number] Date:[id number] [address] [address]KR: 02/09/2018 Tertiary NOT GIVENUNK [place] Insurance:SELF PAY [facility] Number: Effective Repository Date:2018-02-05 02/05/2018 IMANI Barry Primary IMANI MARSH Insurance:MEDICARE [place] BPolicy Number: [id number] Hospital [address]Alv: [id number] Repository [phone] Date:2018-02-05 0-7 (HP) 02/05/2018 Secondary IMANI Barry [place] Insurance:HUMANA BROWNDOB: Community COMMERCIALPolicy [id number] Hospital Number: Repository [id number] Date:[id number] [address] [address]BK: 02/05/2018 Tertiary NOT GIVENUNK [place] Insurance:SELF PAY [facility] Number: Effective Repository Date:2018-02-05 02/02/2018 IMANI W Primary IMANI PUENTES5 [place] Insurance:MEDICARE [place] PART A BPolicy Number: [id number] Hospital [address]Cmc: [id number] Repository [phone] Date:2018-02-01 0-7 (HP) 02/02/2018 Secondary IMANI Barry Hali Insurance:HUMANA BROWNDOB: [facility] COMMERCIALPolicy [id number] Hospital Number: Repository [id number] Date:[id number] [address] [address]FV: 02/02/2018 Tertiary NOT GIVENUNK [place] Insurance:SELF PAY [facility] Number: Effective Repository Date:2018-02-02 01/04/2018 IMANI W Primary IMANI PUENTES5 [place] Insurance:MEDICARE BROWNDOB: [facility] [place] PART A BPolicy Number: [id number] Hospital [address]Ktd: [id number] Repository [phone] Date:2018-01-04 0-7 (HP) 01/04/2018 Secondary IMANI Barry [place] Insurance:HUMANA BROWNDOB: Community COMMERCIALPolicy [id number] Hospital Number: Repository [id number] Date:[id number] [address]UE: 01/04/2018 Tertiary NOT GIVENUNK [place] Insurance:SELF PAY [facility] Number: Effective Repository Date:2018-01-04 11/20/2017 IMANI W Primary IMANI PUENTES5 [place] Insurance:MEDICARE [place] PART A BPolicy Number: [id number] Hospital [address]Byb: [id number] Repository [phone] Date:2017-10-19 0-7 (HP) 11/20/2017 Secondary IMANI Barry Hali Insurance:HUMANA BROWNDOB: [facility] COMMERCIALPoly [id number] Hospital Number: Repository [id number] Date:[id number] [address]GR: 11/20/2017 Tertiary NOT GIVENUNK [place] Insurance:SELF PAY [facility] Number: Effective Repository Date:2017-10-19 10/23/2017 IMANI W Primary IMANI [id number] [place] Insurance:MEDICARE BROWNDOB: [place] PART A BPolicy Number: [id number] Hospital [address]Isx: [id number] Repository [phone] Date:2017-10-23 0-7 (HP) 10/23/2017 Secondary IMANI Barry Hali Insurance:HUMANA BROWNDOB: [facility] [id number] Hospital Number: Repository [id number] Date:[id number] [address]XU: 10/23/2017 Tertiary NOT GIVENUNK [place] Insurance:SELF PAY [facility] Number: Effective Repository Date:2017-10-23 10/19/2017 IMANI W Primary IMANI [id number] [place] Insurance:MEDICARE BROWNDOB: [place] PART A BPolicy Number: [id number] Hospital [address]Dhg: [id number] Repository [phone] Date:2017-08-22 0-7 (HP) 10/19/2017 Secondary IMANI Barry Hali Insurance:HUMANA BROWNDOB: [facility] COMMERCIALPolicy [id number] Hospital Number: Repository [id number] Date:[id number] [address]HB: 10/19/2017 Tertiary NOT GIVENUNK [place] Insurance:SELF PAY [facility]: Effective Repository Date:2017-08-22
== END ==
PROVIDERS: Family Provider Internal Medicine; PCP Internal Medicine; Referring Provider Internal Medicine Cardiovascular Disease; Visit Provider Internal Medicine Cardiovascular Disease
DX: R00.2 Palpitations (principal); E03.9 Hypothyroidism, unspecified; I49.3 Ventricular premature depolarization
CPT/HCPCS: 36415; 80048; 83735; 84436; 84443; 93225; 93226

== ENCOUNTER → 2018-09-03 12:59 | Outpatient (CLI) | payer MEDICARE, OTHER, SELFPAY ==
[2018-08-24 07:30] VITALS: BMI 27.7
--- NOTE | 2018-09-03 13:03 | RAD_ITS ---
STUDY: X-RAY CHEST REASON FOR EXAM: Male, 77 years old. Tachycardia TECHNIQUE: PA and lateral views of the chest. COMPARISON: 01/26/2017 FINDINGS: Lungs are expanded. There is persistent opacification in the lingula thought to be atelectasis on the previous study but is more likely fibrosis since it is unchanged. No superimposed acute process. There is no demonstrated pleural abnormality. Normal size heart. Normal mediastinum and tati. Normal visualized pulmonary arteries. Normal visualized aortic arch and descending thoracic aorta. Normal visualized thoracic spine. Normal visualized ribs, clavicles, and shoulders. There is no demonstrated abnormality of the visualized soft tissue structures of the upper abdomen. 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 No acute pulmonary process Electronically Signed: Morales Smith MD at 17:00 EST , Service support ,
[2018-09-03 13:51] LABS: Absolute Lymphocyte Count 0.85 X10^3/ul (0.83-4.51); Absolute Neutrophil Count 5.2 X10^3/uL (2.0-7.7); Basophil# 0.02 X10^3/uL; Basophil% 0.3 % (0-1); Eosinophil# 0.15 X10^3/uL; Eosinophils% 2.1 % (0-5); Hematocrit 47.5 % (40-54); Hemoglobin 16.2 g/dl (13.0-16.5); Lymphocyte # 0.85 X10^3/ul (4.0); Lymphocyte % 12.1 % (19-41); Mean Corp Hgb Conc 34.1 g/gl (32-36); Mean Corpuscular Hgb 31.7 pg (27.0-32.0); Mean Platelet Vol. 9.4 fl (6.2-12.0); Monocyte# 0.77 X10^3/uL; Neutrophil # 5.21 X10^3/uL (2.7-7.7); Neutrophil % 74.4 % (47-70); Platelet Count 249 K/mm3 (150-450); RBC Distribution Width CV 12.6 % (11.6-14.6); RBC Distribution Width SD 42.7 fl (35.1-43.9); Red Blood Count 5.11 M/mm3 (4.6-6.2)
[2018-09-03 13:54] LABS: POSITIVE COUNT NO; POSITIVE DIFFERENTIAL NO; POSITIVE MORPHOLOGY NO
--- OUTSIDE RECORDS SUMMARY | 2018-10-20 08:21 | XMS RPT_ITS ---
:1940 Author Organization OHIP Support Name Relationship Address Phone MORGAN, PAT Unavailable [address] + [place] [address] R Unavailable Unavailable Unavailable BROWN, PAT Unavailable [phone] [place] [address] R Unavailable Unavailable Unavailable BROWN, PAT Unavailable [phone] [place] [address] R Unavailable Unavailable Unavailable BROWN, PAT Unavailable [phone] [place] [address] R Unavailable Unavailable Unavailable BROWN, PAT Unavailable [phone] [place] [address] R Unavailable Unavailable Unavailable BROWN, PAT Unavailable [phone] [place] [address] R Unavailable Unavailable Unavailable BROWN, PAT Unavailable [phone] [place] [address] R Unavailable Unavailable Unavailable BROWN, PAT Unavailable [phone] [place] [address] R Unavailable Unavailable Unavailable BROWN, PAT Unavailable [phone] [place] [address] R Unavailable Unavailable Unavailable BROWN, PAT Unavailable [phone] [place] [address] R Unavailable Unavailable Unavailable BROWN, PAT Unavailable [phone] [place] [address] R Unavailable Unavailable Unavailable BROWN, PAT Unavailable [phone] [place] [address] R Unavailable Unavailable Unavailable BROWN, PAT Unavailable [phone] [place] [address] R Unavailable Unavailable Unavailable BROWN, PAT Unavailable [phone] [place] [address] R Unavailable Unavailable Unavailable BROWN, PAT Unavailable [phone] [place] [address] R Unavailable Unavailable Unavailable BROWN, PAT Unavailable [address] + [place] [address] R Unavailable Unavailable Unavailable BROWN, PAT Unavailable [address] + [place] [address] R Unavailable Unavailable Unavailable BROWN, PAT Unavailable [address] + [place] [address] R Unavailable Unavailable Unavailable BROWN, PAT Unavailable [address] + [place] [address] R Unavailable Unavailable Unavailable BROWN, PAT Unavailable [address] + [place] [address] R Unavailable Unavailable Unavailable BROWN, PAT Unavailable [address] + [place] [address] R Unavailable Unavailable Unavailable BROWN, PAT Unavailable [address] + [place] [address] R Unavailable Unavailable Unavailable BROWN, PAT Unavailable [address] + [place] [address] R Unavailable Unavailable Unavailable BROWN, PAT Unavailable [address] + [place] [address] R Unavailable Unavailable Unavailable BROWN, PAT Unavailable [address] + [place] [address] R Unavailable Unavailable Unavailable BROWN, PAT Unavailable [address] + [place] [address] R Unavailable Unavailable Unavailable BROWN, PAT Unavailable [address] + [place] [address] R Unavailable Unavailable Unavailable BROWN, PAT Unavailable [address] + [place] [address] R Unavailable Unavailable Unavailable BROWN, PAT Unavailable [address] + [place] [address] R Unavailable Unavailable Unavailable BROWN, PAT Unavailable [address] + [place] [address] R Unavailable Unavailable Unavailable BROWN, PAT Unavailable [address] + [place] [address] R Unavailable Unavailable Unavailable BROWN, PAT Unavailable [address] + [place] [address] R Unavailable Unavailable Unavailable BROWN, PAT Unavailable [address] + [place] [address] R Unavailable Unavailable Unavailable BROWN, PAT Unavailable [phone] [place] [address] R Unavailable Unavailable Unavailable BROWN, PAT Unavailable [phone] [place] [address] R Unavailable Unavailable Unavailable BROWN, PAT Unavailable [phone] [place] [address] R Unavailable Unavailable Unavailable BROWN, PAT Unavailable [phone] [place] [address] R Unavailable Unavailable Unavailable BROWN, PAT Unavailable [phone] [place] [address] R Unavailable Unavailable Unavailable BROWN, PAT Unavailable [phone] [place] [address] R Unavailable Unavailable Unavailable BROWN, PAT Unavailable [phone] [place] [address] R Unavailable Unavailable Unavailable BROWN, PAT Unavailable [phone] [place] [address] R Unavailable Unavailable Unavailable Care Team Providers Name Role Phone Kike Eaton Attending Unavailable Oleghe, Efewongbe Referring Unavailable Kike Eaton Attending Unavailable Angelito Kike Referring Unavailable Oleghe, Efewongbe Primary Care Unavailable Kike Eaton Attending Unavailable Angelito Kike Referring Unavailable Oleghe, Efewongbe Primary Care Unavailable Valdemar Germain Consulting Unavailable Stephanie Lydai Consulting Unavailable Jese Osorio Attending Unavailable Stephanie [...] Referring Unavailable Kike Eaton Attending Unavailable Angelito Kkie Referring Unavailable Kike Eaton Attending Unavailable Kike [...] Oleghe, Efewongbe Primary Care Unavailable Huber Solano CODING DIRECTOR-C Attending Unavailable Oleghe, Efewongbe Referring Unavailable Oleghe, Efewongbe Primary Care Unavailable Oleghe, Efewongbe Attending Unavailable Oleghe, Efewongbe Referring Unavailable Oleghe, Efewongbe Primary Care Unavailable Oleghe, Efewongbe Attending Unavailable Oleghe, Efewongbe Referring Unavailable Oleghe, Efewongbe Primary Care Unavailable Huber Solano CODING DIRECTOR-C Attending Unavailable Oleghe, Efewongbe Referring Unavailable Oleghe, Efewongbe Primary Care Unavailable Huber Solano CODING DIRECTOR-C Attending Unavailable Oleghe, Efewongbe Referring Unavailable Oleghe, [...] Attending Unavailable Oleghe, Efewongbe Referring Unavailable Huber Soalno CODING DIRECTOR-C Attending Unavailable Oleghe, Efewongbe Referring Unavailable Duane Cummings Attending Unavailable Oleghe, Efewongbe Referring Unavailable Lydia Brown Attending Unavailable Stephanie, Lydia Referring Unavailable Oleghe, Efewongbe Primary Care Unavailable CeDuane ly Attending Unavailable CebuDuane anderson Referring Unavailable Oleghe, Efewongbe Primary Care Unavailable Valdemar Germain Attending Unavailable Valdemar Germain Referring Unavailable Oleghe, Efewongbe Primary Care Unavailable Lydia Brown Attending Unavailable Brown, Lydia Referring Unavailable Oleghe, Efewongbe Primary Care Unavailable PROBLEMS PROBLEMS DATE TYPE CONDITION / CODE ATTENDING STATUS SOURCE 10/13/2018 Unknown I49.3 - Ventricular Kike Eaton Active [facility] premature [facility] depolarization / Hospital I49.3(ICD-10) Repository 10/13/2018 Unknown I10 - Essential Kike Eaton Active [facility] (primary) Community hypertension / Hospital I10(ICD-10) Repository 10/13/2018 Unknown I25.10 - Kike Eaton Active [facility] 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 angina pectoris / I25.10(ICD-10) 10/13/2018 Unknown E78.5 - Kike Eaton Active [facility] Hyperlipidemia, Community unspecified / Hospital E78.5(ICD-10) Repository 10/13/2018 Unknown Z95.5 - Presence of Kike Eaton Active [facility] coronary angioplasty Community implant and graft / Hospital Z95.5(ICD-10) Repository 09/30/2018 Unknown R07.9 - Chest pain, Kike Eaton Active [facility] unspecified / Community R07.9(ICD-10) Hospital Repository 09/01/2018 Unknown R00.2 - Palpitations Kike Eaton Active [facility] / R00.2(ICD-10) Community Hospital Repository 09/01/2018 Unknown E03.9 - Kike Eaton Active [facility] Hypothyroidism, Community unspecified / Hospital E03.9(ICD-10) Repository 08/30/2018 Unknown G47.33 - Obstructive Stephanie Active [facility] sleep apnea (adult) [facility] Community (pediatric) / Hospital G47.33(ICD-10) Repository 10/05/2018 Unknown Z12.11 - Encounter Cebul, Duane Active [facility] for screening for Community malignant neoplasm of Hospital colon / Repository Z12.11(ICD-10) 10/05/2018 Unknown K64.9 - Unspecified CebulDuane Active [facility] hemorrhoids / Community K64.9(ICD-10) Hospital Repository 10/05/2018 Unknown K57.30 - CebulDuane Active [facility] Diverticulosis of Community large intestine Hospital without perforation Repository or abscess without bleeding / K57.30(ICD-10) 10/05/2018 Unknown Z98.0 - Intestinal CebulDuane Active [facility] bypass and Community anastomosis status / Hospital Z98.0(ICD-10) Repository 09/03/2018 Unknown R06.09 - Other forms DevonJese travis Active [facility] of dyspnea / Community R06.09(ICD-10) Hospital Repository 08/06/2018 Unknown Z12.10 - Encounter CeDuane ly Active [facility] for screening for Community malignant neoplasm of Hospital intestinal tract, Repository unspecified / Z12.10(ICD-10) 08/04/2018 Unknown Z76.89 - Persons Stephanie, Active [facility] encountering health [facility] services in other Hospital specified Repository circumstances / Z76.89(ICD-10) 08/04/2018 Unknown Z23 - Encounter for Stephanie Active [facility] immunization / [facility] Z23(ICD-10) Hospital Repository 07/20/2018 Unknown R53.81 - Other Kike Eaton Active [facility] malaise / Community R53.81(ICD-10) Hospital Repository 07/20/2018 Unknown R53.83 - Other Kike Eaton Active [facility] fatigue / Community R53.83(ICD-10) Hospital Repository 07/20/2018 Unknown R40.0 - Somnolence / Kike Eaton Active [facility] R40.0(ICD-10) Community Hospital Repository 07/20/2018 Unknown G47.10 - Hypersomnia, Kike Eaton Active [facility] unspecified / Community G47.10(ICD-10) Hospital Repository 04/20/2018 Unknown D64.9 - Anemia, Renetta, Active [facility] unspecified / [facility] Community D64.9(ICD-10) Hospital Repository PROCEDURES PROCEDURES No Procedure Records FoundRESULTS RESULTS CR - HISTORY AND Observed: 10/06/2018 Status: F Source: [place] PHYSICAL 8:46 AM [facility] REPOSITORY 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 Eaton @ [facility] 09/07/2018 Malaise and fatigue (Acute) R53.81, R53.83 [...] Synergy) to Diagonal per Dr. 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 Dunn @ [facility] eye lesion removal H/O hemorrhoidectomy Z98.890 1989 [...] children live nearby?: Yes - 2 in [facility] - Safety Do you feel safe in your surroundings?: Yes - Assistance Do you need any assistance at home?: none Review of Systems - Review of Systems Hints: Right click = Denies (Slash). Left click = Reports ([place]) Review of Present Symptoms: Reports: Shortness of [...] implant in August 2018. 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 He was [...] CARDIOLOGY VISIT Observed: 09/24/2018 Status: F Source: [place] REPORT 2:10 PM [facility] REPOSITORY [facility] [address] [place] [address] OFFICE VISIT Date of Service: 09/20/18 MR#: [id number] Acct: [id number] Name: IMANI MINER Rep #: [id number] : 1940 Provider: Candice Galvez Age/Sex: 77/M Location[facility] Status: Signed HPI HPI Chief Complaint: [...] Intake Visit Reasons: 2 WK S/P PCI Mix Maker Required: No Accompanied by: Son Is patient [...] (Chronic) Hypothyroidism (Chronic) Atherosclerotic heart disease of [place] coronary artery without angina pectoris (Chronic) Malaise [...] affect Assessment AND Plan 1. Atherosclerosis of [place] coronary artery of [place] heart without angina pectoris I25.10 [place] (2.5 X 38 [employer] Synergy) to mid LAD; [place] (2.5 X 12 Prom[employer] Synergy) to Diagonal per Dr. Eaton @ [facility] 09/07/2018 Plan Pt symptoms have improved. Reviewed [...] Code Off vis,est,level 4 Diagnoses Atherosclerosis of [place] coronary artery of [place] heart without angina pectoris I25.10 [place] vs. transplanted heart: [place] heart Pure hypercholesterolemia E78.00; E78.0 Hyperlipidemia type: pure hypercholesterolemia Essential hypertension I10 Hypertension type: essential hypertension Premature ventricular contractions I49.3 Coding Level of Care Code Off vis,est,level 4 Diagnoses Atherosclerosis of [place] coronary artery of [place] heart without angina pectoris I25.10 [place] vs. transplanted heart: [place] heart Pure hypercholesterolemia E78.00; E78.0 Hyperlipidemia type: [...] EMERGENCY DEPARTMENT Observed: 09/14/2018 Status: F Source: [place] SUMMARY 7:56 AM [facility] Medical Records Department [address] [place] [address] Emergency Department Summary 09/11/18 0302 MR#: [id number] Acct: [id number] Name: IMANI MINER Rep #: [id number] : 1940 77 From: Cedric Fonseca MD [...] arterial study This note was generated with [employer]ation software. It may contain incorrect words, spelling, [...] inguinal hematoma This note was generated with [employer] dictation software. It may contain incorrect words, [...] your Primary Care Provider. Call [facility] ([phone]) or report to the closest Emergency Room. Call 911 if necessary. 09/14/18 0756 <Electronically signed by Cedric Fonseca MD> Date Cedric Fonseca MD 09/13/18 0703<Electronically signed by Kike Haas DO> Cosigner Signature (If Indicated): Date Kike Haas DO CC: Tania Jackson MD ARTERIAL DUPLEX US, Observed: 09/13/2018 Status: F Source: [facility] 6:56 AM [facility] REPOSITORY [facility] Cardiovascular Services [address] [place] [address] Art Duplex US Unilat Lower Ext 09/11/18 0837 MR#: [id number] Acct: [id number] Name: IMANI MINER Rep #: [id number] : 1940 77 From: Duane Cummings MD Attending Dr: Status: DEP ER Ordering Dr: Cedric Fonseca MD Date: 09/11/18 Location: ED Sex: M C Admitted: Reason For Study: PSEUDOANEURYSM Right Velocities RT COMPENSATION INTERN measures .9 x .9 cm with a [...] MD Date Dictated: 09/11/1837 Date Transcribed: 09/13/18655 Supervisor Powdered Sugar: Signed 12 LEAD ELECTROCARDIOGRAM Observed: 09/10/2018 Status: F Source: [place] 2:23 PM [facility] REPOSITORY [facility] Cardiovascular Services [address] [place] [address] 12 Lead EKG 09/07/18 1851 MR#: [id number] Acct: [id number] Name: IMANI MINER Rep #: [id number] : 1940 77 From: Celso Thomas MD Attending Dr: Kike Eaton MD Status: [facility] Ordering Dr: Kike Eaton MD Date: 09/07/18 Location: [facility] Sex: M C Admitted: Test Reason [...] found Confirmed by KAYLA ANTONIO, CELSO ([id number]), non linear editor JERAMIE REAL ([id number]) on 09/10/2018 2:22:45 PM Referred By: Kike Eaton Confirmed By:CELSO THOMAS MD 09/10/18 1422 Date Celso Thomas MD CC: Kike Eaton MD; Tania Jackson MD Signed 12 LEAD ELECTROCARDIOGRAM Observed: 09/10/2018 Status: F Source: [place] 2:19 PM [facility] REPOSITORY [facility] Cardiovascular Services [address] [place] [address] 12 Lead EKG 09/08/18 0537 MR#: [id number] Acct: [id number] Name: IMANI MINER Rep #: [id number] : 1940 77 From: Celso Thomas MD Attending Dr: Kike Eaton MD Status: [facility] [place]: Kike Eaton MD Date: 09/08/18 Location: [facility] Sex: M C Admitted: Test Reason [...] UNCONFIRMED Confirmed by KAYLA ANTONIO, CELSO ([id number]), non linear editor JERAMIE REAL ([id number]) on 09/10/2018 2:18:41 PM Referred By: Kike Eaton Confirmed By:CELSO THOMAS MD 09/10/18 1418 Date Celso Thomas MD CC: Kike Eaton MD; Tania Jackson MD Signed ARTERIAL DUPLEX US, Observed: 09/08/2018 Status: F Source: [place] LIMITED 9:05 PM [facility] REPOSITORY [facility] Cardiovascular Services [address] [place] [address] Art Duplex US Unilat Lower Ext 09/08/18 0804 MR#: [id number] Acct: [id number] Name: IMANI MINER Rep #: [id number] : 1940 77 From: Duane Cummings MD Attending Dr: Kike Eaton MD Status: [facility] Ordering Dr: Kike Eaton MD Date: 09/08/18 Location: [facility] Sex: M C Admitted: Reason For Study: RT groin pain/ecchymosis Right Velocities Left Velocities RT COMPENSATION INTERN - 1.1 x 1.0 cm with a [...] RVT 09/08/182103 Date Duane Cummings MD CC: Kike Eaton MD; Tania Jackson MD Date Dictated: 09/08/18803 Date Transcribed: 09/08/182103 Supervisor Powdered Sugar: Signed DISCHARGE INSTRUCTION Observed: 09/08/2018 Status: F Source: [place] 8:43 AM [facility] REPOSITORY [facility] Medical Records Department [address] [place] [address] Instructions for Home/Discharge Instructions 09/08/18 0838 MR#: [id number] Acct: [id number] Name: IMANI MINER Rep #: [id number] : 1940 77 From: Candice WELLINGTON PCP: [...] patient's physical, psychological, and social functioning. Health post anesthesia care unit nurse work in cardiac rehabilitation programs and assist you with getting the treatments you need to get stronger and healthier - like exercise, healthy eating habits, and medications. Cardiac rehabilitation has been show to help people with heart problems live longer and have better life enjoyment than people who do not go to cardiac rehabilitation. Please contact the Cardiac Rehabilitation Program at [facility] at in two weeks if you have not heard from them. 09/08/18 0843 <Electronically signed by Candice WELLINGTON> Date Candice WELLINGTON CC: Tania Jackson MD CBC-COMPLETE BLOOD CNT Collected: 09/08/2018 Status: F Source: [place] NO DIFF 4:25 AM [facility] REPOSITORY TYPE CODE TESTS RESULT OUT OF [...] MPV 9.1 Performed By: #### L100.0500 #### [facility] [address] [place], [address] BASIC METABOLIC Collected: 09/08/2018 Status: F Source: [place] PROFILE (BMP) 4:25 AM [facility] REPOSITORY TYPE CODE TESTS RESULT OUT OF [...] 10 Performed By: #### L500.2500, L500.4100 #### [facility] [address] [place], [address] LIPID PROFILE Collected: 09/08/2018 Status: F Source: [place] 4:25 AM [facility] REPOSITORY TYPE CODE TESTS RESULT OUT OF [...] 33 Performed By: #### L500.2500, L500.4100 #### [facility] [address] [place], [address] ACT ACTIVATED CLOTTING Collected: 09/07/2018 Status: F Source: [place] TIME 11:30 AM [facility] REPOSITORY TYPE CODE TESTS RESULT OUT OF RANGE REFERENCE UNITS LAB L9100.0100 74-137 sec High ACTk CLOT 169 TIME Performed By: #### L9100.0100 #### [facility] Point of Care [address] [place] [address] CARDIOLOGY VISIT Observed: 09/06/2018 Status: F Source: [place] REPORT 11:26 AM [facility] REPOSITORY [facility] [address] [place] [address] OFFICE VISIT Date of Service: 09/06/18 MR#: [id number] Acct: [id number] Name: IMANI MINER Rep #: [id number] : 1940 Provider: Kike Eaton MD Age/Sex: 77/M [place] [facility] Status: Signed HPI [facility] Chief Complaint: 3 month f/u Details: IMANI [...] statin based medicines. His father of an [place] at age 60, and his mother had [...] Reasons: Update H AND P per PRETTY Mix Maker Required: No Is patient in pain?: No [...] (Chronic) Hypothyroidism (Chronic) Atherosclerotic heart disease of [place] coronary artery without angina pectoris (Chronic) Malaise [...] 09/03/2018 Status: F Source: [place] 1:06 PM [facility] REPOSITORY Order Comment: Comments: for heart cath [...] Lymph 0.85 Performed By: #### L100.0100 #### [facility] [address] [place], [address] CHEST PA AND LATERAL Observed: 09/03/2018 Status: F Source: [place] 1:03 PM [facility] REPOSITORY [facility] Imaging Services [address] [place] [address] Chest PA and Lateral MR#: [id number] Acct: [id number] Name: IMANI MINER Rep #: [id number] : 1940 M 77 From: Lupillo Smith MD PCP: Tania Jackson MD Status: REG CLI Study: Chest PA and Lateral Date of Exam: 09/03/18 Exam# [id number] Ordering Dr: Kike Eaton MD STUDY: X-RAY [...] CC: Kike Eaton MD; Tania Jackson MD Supervisor Powdered Sugar: Signed BASIC METABOLIC Collected: 09/01/2018 Status: F Source: [place] PROFILE ([facility]) 10:25 AM [facility] REPOSITORY TYPE CODE TESTS RESULT OUT OF [...] By: #### L500.2500, L501.5200, L501.9310, L501.9520 #### [facility] [address] [place], [place], [address] MAGNESIUM Collected: 09/01/2018 Status: F Source: [place] 10:25 AM [facility] REPOSITORY TYPE CODE TESTS RESULT OUT OF RANGE REFERENCE UNITS LAB L501.5200 1.6-2.6 mg/dL Normal MG 2.1 Performed By: #### L500.2500, L501.5200, L501.9310, L501.9520 #### [facility] [address] [place], [address] T4 TOTAL, THYROXIN Collected: 09/01/2018 Status: F Source: [place] 10:25 AM [facility] REPOSITORY TYPE CODE TESTS RESULT OUT OF REFERENCE UNITS RANGE LAB L501.9310 4.5-12.1 ug/dL T4 High THYROXIN 12.3 Performed By: #### L500.2500, L501.5200, L501.9310, L501.9520 #### [facility] [address] [place] [place], [address] THYROID STIM HORMONE Collected: 09/01/2018 Status: F Source: [place] (TSH) 10:25 AM [facility] REPOSITORY TYPE CODE TESTS RESULT OUT OF RANGE REFERENCE UNITS LAB L501.9520 0.358-3.74 uIU/mL Normal TSH 0.78 Performed By: #### L500.2500, L501.5200, L501.9310, L501.9520 #### [facility] [address] [place], [address] 12 LEAD EKG PERFORMED Observed: 09/01/2018 Status: F Source: [place] [facility] 9:55 AM [facility] REPOSITORY [facility] [address] [facility] [place] [address] 12 Lead EKG performed by [facility] 09/01/18 0955 MR#: [id number] Acct: [id number] Name: IMANI MINER Rep #: [id number] : 1940 77 From: Kike Eaton MD Attending Dr: Kike Eaton MD Status: DEP AMB Ordering Dr: Kike Eaton MD Date: 09/01/18 [place] [facility] Sex: M C Admitted: [facility]/12 Lead EKG performed by [facility] ECG Report Interpretation Sinus Rhythm - frequent ectopic ventricular beat s # VECs = 2-Left axis -anterior fascicular block. ABNORMAL Electronically signed on 09/03/2018 at 15:05 by Kike Eaton Software Version [id number] 09/03/18 8535 Date Kike Eaton MD CC: Tania Jackson MD Date Dictated: 09/01/18954 Date Transcribed: 09/01/18954 Supervisor Powdered Sugar: Signed ORB SELLA POST Observed: 08/26/2018 Status: F Source: [place] FOSSA EAR W/O 1:28 PM [facility] REPOSITORY [facility] Imaging Services [address] [address] Orb Sella Post Fossa Ear w/o MR#: [id number] Acct: [id number] Name: IMANI MINER Rep #: [id number] : 1940 M 77 From: Luca Arteaga MD PCP: Tnaia Jacksno MD Status: REG CLI Study: Orb Sella Post Fossa Ear w/o Date of Exam: 08/26/18 Exam# [id number] Ordering Dr: Valdemar Germain MD ADDENDUM by [...] CC: Pastor Germain MD; Tania Jackson MD Supervisor Powdered Sugar: Signed OPERATIVE REPORT - Observed: 08/24/2018 Status: F Source: [facility] ENDOSCOPY 8:31 AM [facility] REPOSITORY [facility] Medical Records Department [address] [place] [address] Operative Report - Endoscopy MR#: [id number] Acct: [id number] Name: IMANI MINER Rep #: [id number] : 1940 77 From: Duane Cummings MD PCP: Tania Jackson MD Status: [place] [facility] Patient Name: Imani Miner Procedure Date: 08/24/2018 [...] screening purposes. Procedure Code(s): --- Professional --- 60062, Colonoscopy, flexible; diagnostic, including collection of specimen(s) by brushing or washing, when performed (separate procedure) Diagnosis Code(s): --- Professional --- Z12.11, Encounter for screening for malignant neoplasm of colon K64.9, Unspecified hemorrhoids Z98.0, Intestinal bypass and anastomosis status K57.30, Diverticulosis of large intestine without perforation or abscess without bleeding N40.0, Benign prostatic hyperplasia without lower urinary tract symptoms CPT copyright 2017 [employer]. All rights reserved. The codes documented in this report are preliminary and upon greeting card writer review may be revised to meet current compliance requirements. Duane Cummings MD 08/24/2018 8:30:35 AM This report has been signed electronically. Number of Addenda: 0 Note Initiated On: 08/24/2018 8:09 AM 08/24/18829 Date Duane Cummings MD Cosigner Signature: Date (if indicated) CC: Tania Jackson MD; Duane Cummings MD Date Dictated: 08/24/18808 Date Transcribed: Supervisor Powdered Sugar: JOSE Signed PULMONARY FUNCTION Observed: 08/21/2018 Status: F Source: CONETOE REPORT COMP 6:44 AM [facility] REPOSITORY [facility] Pulmonary Services/Neurology [address] [place] [address] MR#: [id number] Acct: [id number] Name: IMANI MINER Rep #: [id number] : 1940 77 From: Jese Osorio MD Referring Dr: Lydia Brown CODING DIRECTOR Status: REG CLI Ordering Dr: Date: Location: [facility] Sex: M C COMPLETE PULMONARY FUNCTION TEST INTERPRETATION Brief HPI: Patient is a 77 year old male, currently under the care of Lydia Brown, who presents to [facility] for complete pulmonary function tests secondary [...] Dictated: 08/20/18 1411 Date Transcribed: 08/20/18 141 Supervisor Powdered Sugar: LISA Signed INTERNAL MEDICINE Observed: 08/07/2018 Status: F Source: CONETOE OFFICE VISIT 8:18 AM [facility] Internal Medicine [address] [place] [address] [place] [address] OFFICE VISIT Date of Service: 08/03/18 MR#: [id number] Acct: [id number] Name: IMANI MINER Asha Rep #: [id number] : 1940 Provider: Huber Solano NP Age/Sex: 77/M Location: [facility] Status: Signed Intake Vital Signs08/03/18 Height [...] (Chronic) Hypothyroidism (Chronic) Atherosclerotic heart disease of [place] coronary artery without angina pectoris (Chronic) Malaise [...] Limitations: mental status not altered [facility] Head: normal to inspection Ears: [...] viral at this time. Patient encouraged to knot picker cloth Flonase wldz-jlc-qnxgelg and use 2 sprays in each nostril once a day for his postnasal drip and may continue with cqep-tnz-tgwssju cough syrup that does not contain Sudafed [...] medical care. This note was generated with [employer] dictation software. It may contain incorrect words, [...] VISIT REPORT Observed: 08/06/2018 Status: F Source: CONETOE 2:39 PM [facility] REPOSITORY [facility] [address] [place] [address] [address] [place] [address] OFFICE VISIT Date of Service: 08/06/18 MR#: [id number] Acct: [id number] Name: IMANI MINER Rep #: [id number] : 1940 Provider: Duane Cummings MD Age/Sex: 77/M Location: [facility] Status: Signed Intake Vital Signs08/06/18 Body Mass Index (BMI) 28.5 08/06/18 Height 5 ft 8 in 08/06/18 Weight: 185 lb 08/06/18 Body Mass Index (BMI) 28.1 Intake Visit Reasons: BRBPR, change in bowel habits Chief Complaint: 3 month f/u Mix Maker Required: No Is patient in pain?: No [...] (Chronic) Hypothyroidism (Chronic) Atherosclerotic heart disease of [place] coronary artery without angina pectoris (Chronic) Malaise [...] VISIT REPORT Observed: 08/05/2018 Status: F Source: CONETOE 4:55 PM [facility] REPOSITORY [facility] [address] [address] [place] [address] OFFICE VISIT Date of Service: 08/04/18 MR#: [id number] Acct: [id number] Name: IMANI MINER Rep #: [id number] : 1940 Provider: Lydia Brown Age/Sex: 77/M [facility] Status: Signed Assessment AND Plan 1. EH [...] body aches. 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 [...] CPAP titration study was recommended. 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 Never a smoking, on symbicort for ??? Intake Vital Signs11/14/18 Height 5 ft 8 in 08/04/18 Weight: 187 lb 8 oz Intake Visit Reasons: Sleep problems Mix Maker Required: No Accompanied by: Allergies amoxicillin [From [...] (Chronic) Hypothyroidism (Chronic) Atherosclerotic heart disease of [place] coronary artery without angina pectoris (Chronic) Malaise [...] Admin Location Lot Number Expiration Date NDC Identification Technician 0.5 mL IM Left Deltoid [id number] 09/28/19 2520-4087-40 [place] [employer] [place] VIS Given Date VIS Publication Date 08/04/18 04/27/15 Eligibility Eligibility Date Coding Level of Care Code Off vis,new,level 4 Diagnoses EH (obstructive sleep apnea) G47.33 Restless legs syndrome (RLS) G25.81 Dyspnea on exertion R06.09 08/05/18 1655 <Electronically signed by Lydia Brown CODING DIRECTOR-C> Date Lydia Brown CODING DIRECTOR-C Cosigner Signature: Date (if applicable) CC: Tania Jackson MD RENAL ARTERY DUPLEX Observed: 06/24/2018 Status: F Source: HALI 6:26 PM [facility] REPOSITORY [facility] Cardiovascular Services [address] [place] [address] Renal Artery Duplex Ultrasound 06/24/18 0755 MR#: [id number] Acct: [id number] Name: IMANI MINER Rep #: [id number] : 1940 77 From: Duane Cummings MD Attending Dr: Kike Eaton MD Status: REG CLI Ordering Dr: Kike Eaton MD Date: 06/24/18 [facility] Sex[facility] M C Admitted: Reason For [...] Date Dictated: 06/24/18 075 Date Transcribed: 06/24/181824 Supervisor Powdered Sugar: Signed STRESS TEST ECHO W/O Observed: 06/24/2018 Status: F Source: [facility]ET[facility] CONTRAST 3:05 PM [facility] REPOSITORY [facility] Cardiovascular Services [address] [place] [address] Stress Test Echo w/o Contrast MR#: [id number] Acct: [id number] Name: IMANI MINER Rep #: [id number] : 1940 77 From: Kike Eaton MD [...] Date Dictated: 06/24/18911 Date Transcribed: 06/24/18 150 Supervisor Powdered Sugar: Signed CARDIOLOGY VISIT Observed: 06/08/2018 Status: F Source: CONETOE REPORT 1:37 PM [facility] REPOSITORY [facility] [address] [place] [address]. [address] [place] [address] OFFICE VISIT Date of Service: 06/08/18 MR#: [id number] Acct: [id number] Name: IMANI MINER Rep #: [id number] : 1940 Provider: Kike Eaton MD Age/Sex: 77/M [facility] Status: Signed HPI [facility] Chief Complaint: Dyspnea on exertion, fatigue, HTN, [...] statin based medicines. His father of an [place] at age 60, and his mother had [...] Intake Visit Reasons: HTN, PREV PFM 2013 Mix Maker Required: No Accompanied by: Is patient in [...] PO DAILY@0800 tab 06/08/18 [History Confirmed 06/08/18] [facility] Medical History Nonrheumatic tricuspid (valve) insufficiency (Chronic) Hypothyroidism (Chronic) Atherosclerotic heart disease of [place] coronary artery without angina pectoris (Chronic) Malaise [...] (Has had headache for 4 days, right presybeterian and top of head. Severe fatigue); negative [...] AND Plan 1. 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 Dunn @ [facility] Plan 1. Coronary artery disease: The patient [...] vis,new,level 4 Diagnoses Atherosclerotic heart disease of [place] coronary artery without angina pectoris I25.10 Hyperlipidemia E78.5 Hypertension I10 Somnolence, daytime R40.0 Coding Level of Care Code Off vis,new,level 4 Diagnoses Atherosclerotic heart disease of [place] coronary artery without angina pectoris I25.10 Hyperlipidemia E78.5 Hypertension I10 Somnolence, daytime R40.0 06/08/18 1337 <Electronically signed by Kike Eaton MD> Date Kike Eaton MD Cosigner Signature: Date (if applicable) CC: Tania Jackson MD 12 LEAD EKG PERFORMED Observed: 06/08/2018 Status: F Source: HALI BY [facility] 1:27 PM [facility] REPOSITORY [place] [address] [place] [address] 12 Lead EKG performed by [facility] 06/08/18 1326 MR#: [id number] Acct: [id number] Name: IMANI MINER Rep #: [id number] : 1940 77 From: Kike Eaton MD Attending Dr: Kike Eaton MD Status: DEP AMB Ordering Dr: Kike Eaton MD Date: 06/08/18 [place] [facility] Sex: M C Admitted: BMS/12 Lead EKG performed by [facility] ECG Report Interpretation Sinus Rhythm -Left axis -anterior fascicular block. ABNORMAL Electronically signed on 09/03/2018 at 15:03 by Kike Eaton Software Version 8610 09/03/18 1506 Date Kike Eaton MD CC: Tania Jackson MD Date Dictated: 06/08/18 1326 Date Transcribed: 06/08/18 1326 Supervisor Powdered Sugar: Signed INTERNAL MEDICINE Observed: 05/25/2018 Status: F Source: CONETOE OFFICE VISIT 8:49 AM [facility] Internal Medicine [address] [place] [address] OFFICE VISIT Date of Service: 05/21/18 MR#: [id number] Acct: [id number] Name: IMANI MINER Rep #: [id number] : 1940 Provider: Huber Solano NP Age/Sex: 77/M Location: [facility] Status: Signed Intake Vital Signs05/21/18 Height [...] cardiac etiology, seems musculoskeletal and recommended take jixp-ziv-hukmmel analgesics as this provides moderate relief of [...] F Source: HALI OFFICE VISIT 10:46 AM [facility] Internal Medicine [address] [place] [address] OFFICE VISIT Date of Service: 04/27/18 MR#: [id number] Acct: [id number] Name: IMANI MINER Rep #: [id number] : 1940 Provider: Huber Solano NP Age/Sex: 77/M [place] [facility] Status: Signed Intake Vital Signs04/27/18 Height 5 [...] BID #180 tab 04/27/18 [Rx Confirmed 04/27/18] [facility] Medical History Arthritis (Acute) Hay fever (Acute) [...] Limitations: mental status not altered [facility] Head: normal to inspection, normocephalic, [...] F Source: HALI OFFICE VISIT 1:32 PM [facility] Internal Medicine [facility] [place] [address] OFFICE VISIT Date of Service: 04/20/18 MR#: [id number] Acct: [id number] Name: IMANI MINER Rep #: [id number] : 1940 Provider: Tania Jackson MD Age/Sex: 77/M Location: [facility] Status: Signed Intake Vital Signs04/20/18 Height [...] Orientation: alert, awake, oriented x3 [facility] Head: atraumatic, normocephalic Ears: hearing [...] with results. This note was generated with [employer]ation software. It may contain incorrect words, spelling, [...] 04/20/2018 Status: F Source: HALI 12:41 PM [facility] REPOSITORY TYPE CODE TESTS RESULT OUT OF [...] L500.4050, L501.9520, L503.6075, L503.6150, L503.6550, L506.0400 #### [facility] [address] [place], [address] COMPREHENSIVE METABOLIC Collected: 04/20/2018 Status: F Source: [facility] 12:41 PM [facility] REPOSITORY TYPE CODE TESTS RESULT OUT OF [...] L500.4050, L501.9520, L503.6075, L503.6150, L503.6550, L506.0400 #### [facility] [address] [facility] [place], [place], [address] THYROID STIM HORMONE Collected: 04/20/2018 Status: F Source: [facility]ETOE (TSH) 12:41 PM [facility] REPOSITORY TYPE CODE TESTS RESULT OUT OF RANGE REFERENCE UNITS LAB L501.9520 0.358-3.74 uIU/mL Normal TSH 0.47 Performed By: #### L100.0100, L500.4050, L501.9520, L503.6075, L503.6150, L503.6550, L506.0400 #### [facility] [address] [facility] [place], [place], [address] IRON BINDING Collected: 04/20/2018 Status: F Source: [facility] 12:41 PM [facility] REPOSITORY TYPE CODE TESTS RESULT OUT OF RANGE REFERENCE UNITS LAB L503.6075 250-450 ug/dL Normal TIBC 394 Performed By: #### L100.0100, L500.4050, L501.9520, L503.6075, L503.6150, L503.6550, L506.0400 #### [facility] [address] [place], [address] IRON Collected: 04/20/2018 Status: F Source: [facility] 12:41 PM [facility] REPOSITORY TYPE CODE TESTS RESULT OUT OF RANGE REFERENCE UNITS LAB L503.6150 65-175 ug/dL Normal IRON 130 Performed By: #### L100.0100, L500.4050, L501.9520, L503.6075, L503.6150, L503.6550, L506.0400 #### [facility] [address] [place], [place], [address] FERRITIN Collected: 04/20/2018 Status: F Source: [facility] 12:41 PM [facility] REPOSITORY TYPE CODE TESTS RESULT OUT OF RANGE REFERENCE UNITS LAB L503.6550 26-388 ng/mL Normal FERRITIN 74 Performed By: #### L100.0100, L500.4050, L501.9520, L503.6075, L503.6150, L503.6550, L506.0400 #### [facility] [address] [place], [place], [address] T4 FREE DIRECT Collected: 04/20/2018 Status: F Source: [facility] 12:41 PM [facility] REPOSITORY TYPE CODE TESTS RESULT OUT OF RANGE REFERENCE UNITS LAB L506.0400 0.76-1.46 ng/dL Normal T4 FREE 1.30 DIRECT Performed By: #### L100.0100, L500.4050, L501.9520, L503.6075, L503.6150, L503.6550, L506.0400 #### [facility] [address] [place], [address] INTERNAL MEDICINE Observed: 03/30/2018 Status: F Source: HALI OFFICE VISIT 4:57 PM [facility] REPOSITORY [facility] [address] [place] [address] OFFICE VISIT Date of Service: 03/30/18 MR#: [id number] Acct: [id number] Name: IMANI MINER Rep #: [id number] : 1940 Provider: Huber Solano NP Age/Sex: 77/M Location[place] [facility] Status: Signed Intake Vital Signs03/30/18 Height 5 [...] 2.5 mg daily. Also encouraged patient to knot picker cloth compression stockings, 10-15 mmHg. Patient educated to [...] medical care. This note was generated with [employer] software. It may contain incorrect words, spelling, [...] F Source: HALI OFFICE VISIT 1:42 PM [facility] Internal Medicine [address] [place] [address] [place] [address] OFFICE VISIT Date of Service: 02/05/18 MR#: [id number] Acct: [id number] Name: IMANI MINER Rep #: [id number] : 1940 Provider: Tania Jackson MD Age/Sex: 77/M Location: [facility] Status: Signed Intake Vital Signs02/05/18 Height [...] extremity rash. 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 He denies [...] F Source: HALI OFFICE VISIT 4:27 PM [facility] Internal Medicine [address] [place] [address] [place] [address] OFFICE VISIT Date of Service: 02/02/18 MR#: [id number] Acct: [id number] Name: IMANI MINER Rep #: [id number] : 1940 Provider: Tania Jackson MD Age/Sex: 77/M Location: [facility] Status: Signed Intake Vital Signs02/02/18 Height [...] Orientation: alert, awake, oriented x3 [facility] Head: atraumatic, normocephalic Ears: hearing [...] next visit. This note was generated with [employer] software. It may contain incorrect words, spelling, [...] Status: F Source: HALI REPORT 10:51 AM [facility] REPOSITORY [facility] [address] [place] [address] OFFICE VISIT Date of Service: 01/04/18 MR#: [id number] Acct: [id number] Name: IMANI MINER Rep #: [id number] : 1940 Provider: Jaden WELLINGTON Age/Sex: 77/M Location[place] [facility] Status: Signed Intake Vital Signs01/04/18 Height 5 [...] the above. This note was generated with [employer] dictation software. It may contain incorrect words, [...] F Source: HALI OFFICE VISIT 8:19 AM [facility] Internal Medicine [address] [facility] [address] [place] [address] OFFICE VISIT Date of Service: 11/20/17 MR#: [id number] Acct: [id number] Name: IMANI MINER Rep #: [id number] : 1940 Provider: Tania Jackson MD Age/Sex: 76/M Location: [facility] Status: Signed Intake Vital Signs11/20/17 Height 5 [...] Orientation: alert, awake, oriented x3 [facility] Head: normal to inspection, normocephalic, [...] symptoms worsen. This note was generated with [employer] software. It may contain incorrect words, spelling, [...] INTERNAL MEDICINE Observed: 10/23/2017 Status: F Source: CONETOE OFFICE VISIT 4:49 PM [facility] Internal Medicine [address] [place] [address] OFFICE VISIT Date of Service: 10/19/17 MR#: [id number] Acct: [id number] Name: IMANI MINER Rep #: [id number] : 1940 Provider: Tania Jackson MD Age/Sex: 76/M Location: [facility] Status: Signed Intake Vital Signs10/19/17 Height 5 ft 7 in 10/19/17 Weight: 190 lb 8 oz Intake Visit Reasons: 3 M FU Mix Maker Required: No Accompanied by: Is patient in [...] Orientation: alert, awake, oriented x3 [facility] Head: normal to inspection, normocephalic, [...] 1 month. This note was generated with [employer] software. It may contain incorrect words, spelling, and punctuation that were not noted in checking the note before signing. Plan Detail Other Medications New: Follow Up 1 Month Coding Level of Care Code Off vis,est,level 3 Diagnoses Epistaxis, recurrent R04.0 Hypertension I10 10/23/17 8009 <Electronically signed by Tania Jackson MD> Date Tania Jackson MD Cosigner Signature: Date (if applicable) CC: Observed: 10/23/2017 Status: F Source: HALI CULTURE, URINE 10:39 AM [facility] REPOSITORY Urine Culture Culture exhibits no growth. Performed By: #### M100.0650 #### [facility] [place], [address] ALLERGIES ALLERGIES DATE TYPE / CODE NAME / CODE REACTION SEVERITY SOURCE 09/20/2018 Drug lisinopril/F89285 cough [place] [facility] Allergy/416 0658(RXNORM) Community 814097([facility] ED CT) Repository 09/20/2018 Drug niacin/H438659401 Other Unknown Hali Allergy/416 (RXNORM) [facility] 111909([facility] ED CT) Repository 09/20/2018 Drug gemfibrozil/F0060 Pain in joints Unknown [facility]ali Allergy/416 02003(RXNORM) [facility] 944537([facility] ED CT) Repository 09/20/2018 Drug clavulanic Nausea/Vom/Diar [place] Hali Allergy/416 acid/[id number](R mikey Community 597295([facility] ED CT) Repository 09/20/2018 Drug amoxicillin/F0060 Nausea/Vom/Diar [place] [facility]ali Allergy/416 19713(RXNORM) mikey [facility] 935073([facility] ED CT) Repository 09/20/2018 Drug atorvastatin/F006 Pain in joints Unknown [facility] Allergy/416 170321(RXNORM) [facility] 602311([facility] ED CT) Repository ENCOUNTERS ENCOUNTERS ADMIT/DISCHARGE ACCOUNT ADMITTING ENCOUNTER LOCATION SOURCE NUMBER CLASS 10/13/2018 [id number] Ambulatory Hali Hali 3 [facility] ing:CR Repository 10/05/2018 [id number] Ambulatory [facility] 3 [facility] ing:CR Repository 09/20/2018/ [id number] Ambulatory BMSBuilding:B [facility] 8 6 [place] Repository 09/16/2018 [id number] Ambulatory BMSBuilding:B [facility] 3 [facility] Repository 09/11/2018/ [id number] Emergency Hali [facility] 8 9 [facility] ing:ED Repository 09/08/2018 [id number] Ambulatory BMSBuilding:B Hali 3 [facility] Repository 09/07/2018/ [id number] Ambulatory Hali Hali 8 8 [facility] ing:CLSPRoom: Repository [id number] 09/07/2018 [id number] Ambulatory BMSBuilding:W [facility] 9 [facility] Repository 09/06/2018 [id number] Ambulatory BMSBuilding:B Hali 9 [facility] Repository 09/06/2018/ [id number] Ambulatory BMSBuilding:B Hali 8 6 [facility] Repository 09/03/2018 [id number] Ambulatory [facility] 1 [facility] ing:LAB Repository 09/03/2018 [id number] Ambulatory BMSBuilding:W [facility] 2 [facility] Repository 09/01/2018 [id number] Ambulatory Hali Hali 4 [facility] ing:LAB Repository 09/01/2018/ [id number] Ambulatory BMSBuilding:B Hali 8 3 [facility] Repository 08/30/2018 [id number] Ambulatory [facility]ali 1 [facility]SL Repository 08/26/2018 [id number] Ambulatory [facility]ali [facility] 4 [facility] ing:CT Repository 08/24/2018/ [id number] Ambulatory BMSBuilding:B Hali 8 4 [facility] Repository 08/24/2018/ [id number] Ambulatory [facility] Hali 8 6 [facility] ing:ENRoom: Repository AC14 08/20/2018 [id number] Ambulatory BMSBuilding:W [facility] 6 [facility] Repository 08/20/2018 [id number] Ambulatory [facility] Hali 1 [facility] ing:PSN Repository 08/06/2018/ [id number] Ambulatory BMSBuilding:B Hali 8 0 [facility] Repository 08/04/2018/ [id number] Ambulatory BMSBuilding:B [facility] 8 2 [facility] Repository 08/03/2018/ [id number] Ambulatory BMSBuilding:B Hali 8 5 [facility] Repository 07/19/2018 [id number] Ambulatory Hali Hali 8 [facility] ing:SL Repository 06/24/2018 [id number] Ambulatory BMSBuilding:B Hali 8 [facility] Repository 06/24/2018 [id number] Ambulatory BMSBuilding:B Hali 2 [facility] Repository 06/24/2018 [id number] Ambulatory [facility] Hali 1 [facility] ing:CVS Repository 06/08/2018/ [id number] Ambulatory BMSBuilding:B Hali 8 1 [facility] Repository 05/21/2018/ [id number] Ambulatory BMSBuilding:B Hali 8 9 [facility] Repository 04/27/2018/ [id number] Ambulatory BMSBuilding:B Hali 8 8 [facility] Repository 04/20/2018 [id number] Ambulatory Hali Hali 1 [facility] ing:MTLAB Repository 04/20/2018/ [id number] Ambulatory BMSBuilding:B Hali 8 1 [facility] Repository 03/30/2018/ [id number] Ambulatory BMSBuilding:B Hali 8 6 [facility] Repository 02/22/2018/ [id number] Ambulatory BMSBuilding:B [facility] 8 6 [facility] Repository 02/09/2018 [id number] Ambulatory BMSBuilding:B [facility] 7 [facility] Repository 02/05/2018/ [id number] Ambulatory BMSBuilding:B [facility] 8 4 [facility] Repository 02/02/2018/ [id number] Ambulatory BMSBuilding:B [facility] 8 0 [facility] Repository 01/04/2018/ [id number] Ambulatory BMSBuilding:B Hali 8 9 [facility] Repository 11/20/2017/ [id number] Ambulatory BMSBuilding:B Hali 8 3 [facility] Repository 10/23/2017 [id number] Ambulatory [place] Hali 6 [facility] ing:MTLAB Repository 10/19/2017/ [id number] Ambulatory BMSBuilding:B Gilead 8 5 MS.[facility] Repository PAYERS PAYERS ENCOUNTER GUARANTOR PAYER SUBSCRIBER SOURCE 10/13/2018 IMANI MINER1445 [place] Insurance:MEDICARE BROWNDOB: [facility]ly [facility] katharine ANDRES PART A BPolicy Number: [id number] Hospital 85060Qyg: 330 [id number] Repository [phone] () Date:2018-10-05 10/13/2018 Secondary IMANI Barry Hali Insurance:HUMANA BROWNDOB: Formerly [facility] COMMERCIALPoly [id number] Hospital Number: Repository [id number] Date:8687-63-37XC [address] [address]IC: 10/13/2018 Tertiary NOT GIVENUNK [place] Insurance:SELF PAY [facility] Number: Effective Repository Date:2018-10-05 10/05/2018 IMANI W Primary IMANI PUENTES5 SAL[place] Insurance:MEDICARE BROWNDOB: [place] PART A BPolicy Number: [id number] Hospital 67544Gud: 330 [id number] Repository [phone] () Date:2018-09-22 10/05/2018 Secondary IMANI Barry [place] Insurance:HUMANA BROWNDOB: Formerly [facility] COMMERCIALPolicy [id number] Hospital Number: Repository [id number] Date:0447-37-02MZ [address] [address]YF: 10/05/2018 Tertiary NOT GIVENUNK Hali Insurance:SELF PAY [facility] Number: Effective Repository Date:2018-09-22 09/20/2018 IMANI W Primary IMANI PUENTES5 MARSH Insurance:MEDICARE BROWNDOB: [place] PART A BPolicy Number: [id number] Hospital 12068Uyf: 330 [id number] Repository [phone] () Date:2018-09-07 09/20/2018 Secondary IMANI Barry [place] Insurance:HUMANA BROWNDOB: [facility]ly [facility] [id number] Hospital Number: Repository [id number] Date:1279-23-54QK [address] [address]OW: 09/20/2018 Tertiary NOT GIVENUNK [place] Insurance:SELF PAY [facility] Hospital Number: Effective Repository Date:2018-09-20 09/16/2018 IMANI Barry Primary IMANI MARSH Insurance:MEDICARE [place] PART A BPolicy Number: [id number] Hospital 41570Aiu: 330 [id number] Repository [phone] (HP) Date:2018-09-16 09/16/2018 Secondary IMANI Lal Insurance:HUMANA BROWNDOB: Community COMMERCIALPolicy [id number] Hospital Number: Repository [id number] Date:0751-11-78JK [address] [place] [address]XZ: 09/16/2018 Tertiary NOT GIVENUNK [place] Insurance:SELF PAY [facility] Number: Effective Repository Date:2018-09-16 09/11/2018 IMANI W Primary IMANI MARSH Insurance:MEDICARE BROWNDOB[place] PART A BPolicy Number: [id number] Hospital 47139Yjd: 330 [id number] Repository [phone] (HP) Date:2018-09-11 09/11/2018 Secondary IMANI Lal Insurance:HUMANA BROWNDOB: [facility] [id number] Hospital Number: Repository [id number] Date:3848-83-71AC [address] [place] [address]ES: 09/11/2018 Tertiary NOT GIVENUNK Hali Insurance:SELF PAY [facility] Number: Effective Repository Date:2018-09-11 09/08/2018 IMANI Barry Primary IMANI MARSH Insurance:MEDICARE BROWNDOB[place] PART A BPolicy Number: [id number] Hospital 99486Vxu: 330 [id number] Repository [phone] (HP) Date:2018-09-03 09/08/2018 Secondary IMANI Lal Insurance:HUMANA BROWNDOB: [facility]ly [facility] COMMERCIALPolicy [id number] Hospital Number: Repository [id number] Date:8823-30-08UG[address] [address]IB: 09/08/2018 Tertiary NOT GIVENUNK Hali Insurance:SELF PAY [facility] Number: Effective Repository Date:2018-09-08 09/07/2018 IMANI Barry Primary IMANI PUENTES5 [place] Insurance:MEDICARE BROWNDOB[place] PART A BPolicy Number: [id number] Hospital 59346Bot: (629) [id number] Repository [phone] () Date:2018-09-03 09/07/2018 Secondary IMANI Lal Insurance:HUMANA BROWNDOB: [facility] [id number] Hospital Number: Repository [id number] Date:9778-72-06XM[address] [address]OL: 09/07/2018 Tertiary NOT GIVENUNK Hali Insurance:SELF PAY [facility] Number: Effective Repository Date:2018-09-03 09/07/2018 IMANI W Primary IMANI PUENTES5 SAL[place] Insurance:MEDICARE BROWNDOB: [facility] [place] PART A BPolicy Number: [id number] Hospital 01339Yqa: (140) [id number] Repository [phone] () Date:2018-09-03 09/07/2018 Secondary IMANI Lal Insurance:HUMANA BROWNDOB: [facility] [id number] Hospital Number: Repository [id number] Date:8681-17-27TF[address] [address]NV: 09/07/2018 Tertiary NOT GIVENUNK [place] Insurance:SELF PAY [facility] Hospital Number: Effective Repository Date:2018-09-07 09/06/2018 IMANI Barry Primary IMANI PUENTES5 SAL[place] Insurance:MEDICARE BROWNDOB: [facility] [place] PART A BPolicy Number: [id number] Hospital 20790Mxq: (918) [id number] Repository [phone] () Date:2018-09-06 09/06/2018 Secondary IMANI Barry [place] Insurance:HUMANA BROWNDOB: [facility]ly [facility] COMMERCIALPoly [id number] Hospital Number: Repository [id number] Date:5055-38-50GF [address] [address]WP: 09/06/2018 Tertiary NOT GIVENUNK [place] Insurance:SELF PAY [facility] Hospital Number: Effective Repository Date:2018-09-06 09/06/2018 IMANI W Primary IMANI MINER1445 [place] Insurance:MEDICARE BROWNDOB: [place] PART A BPolicy Number: [id number] Hospital 18997Adf: 330 [id number] Repository [phone] () Date:2018-09-03 09/06/2018 Secondary IMANI Barry Hali Insurance:HUMANA BROWNDOB: [facility] [id number] Hospital Number: Repository [id number] Date:9526-73-81RZ [address] [address]TI: 09/06/2018 Tertiary NOT GIVENUNK [place] Insurance:SELF PAY [facility] Hospital Number: Effective Repository Date:2018-09-06 09/03/2018 IMANI W Primary IMANI MINER1445 [place] Insurance:MEDICARE BROWNDOB: [place] PART A BPolicy Number: [id number] Hospital 28461Yjo: 330 [id number] Repository [phone] () Date:2018-09-03 09/03/2018 Secondary IMANI Barry Hali Insurance:HUMANA BROWNDOB: [facility] [id number] Hospital Number: Repository [id number] Date:5923-43-53NN [address] [address]OR: 09/03/2018 Tertiary NOT GIVENUNK Hali Insurance:SELF PAY [facility] Hospital Number: Effective Repository Date:2018-09-03 09/03/2018 IMANI Barry Primary IMANI MINER1445 [place] Insurance:MEDICARE BROWNDOB: [place] PART A BPolicy Number: [id number] Hospital 97112Qpl: 330 [id number] Repository [phone] () Date:2018-09-01 09/03/2018 Secondary IMANI Lal Insurance:HUMANA BROWNDOB: [facility] [id number] Hospital Number: Repository [id number] Date:3365-04-32HM [address] [place] [address]EJ: 09/03/2018 Tertiary NOT GIVENUNK Hali Insurance:SELF PAY [facility] Hospital Number: Effective Repository Date:2018-09-01 09/01/2018 IMANI W Primary IMANI [id number] [place] Insurance:MEDICARE BROWNDOB: [facility], or PART A BPolicy Number: [id number] Hospital 17583Nhl: 330 [id number] Repository [phone] () Date:2018-09-01 09/01/2018 Secondary IMANI Lal Insurance:HUMANA BROWNDOB: [facility] [id number] Hospital Number: Repository [id number] Date:0418-21-35VR [address] [address]JS: 09/01/2018 Tertiary NOT GIVENUNK [place] Insurance:SELF PAY [facility] Hospital Number: Effective Repository Date:2018-09-01 09/01/2018 IMANI W Primary IMANI MINER1445 [place] Insurance:MEDICARE BROWNDOB: [facility], or PART A BPolicy Number: [id number] Hospital 27646Bxj: 330 [id number] Repository [phone] () Date:2018-09-01 09/01/2018 Secondary IMANI Lal Insurance:HUMANA BROWNDOB: [facility] [id number] Hospital Number: Repository [id number] Date:2314-35-29IF [address] [address]NE: 09/01/2018 Tertiary NOT GIVENUNK [place] Insurance:SELF PAY [facility] Hospital Number: Effective Repository Date:2018-09-01 08/30/2018 IMANI Barry Primary IMANI PUENTES5 [place] Insurance:MEDICARE BROWNDOB[place] PART A BPolicy Number: [id number] Hospital 11474Dqh: 330 [id number] Repository [phone] () Date:2018-08-05 08/30/2018 Secondary IMANI Barry Hali Insurance:HUMANA BROWNDOB: [facility] [id number] Hospital Number: Repository [id number] Date:0151-80-37NM [address] [address]DA: 08/30/2018 Tertiary NOT GIVENUNK Hali Insurance:SELF PAY [facility] Hospital Number: Effective Repository Date:2018-08-05 08/26/2018 IMANI Asha Primary IMANI PUENTES5 [place] Insurance:MEDICARE BROWNDOB[place] PART A BPolicy Number: [id number] Hospital 09830Dcj: 330 [id number] Repository [phone] () Date:2018-08-16 08/26/2018 Secondary IMANI Barry [place] Insurance:HUMANA BROWNDOB: [facility] [id number] Hospital Number: Repository [id number] Date:2319-62-83KY [address] [address]MK: 08/26/2018 Tertiary NOT GIVENUNK Hali Insurance:SELF PAY [facility] Hospital Number: Effective Repository Date:2018-08-16 08/24/2018 IMANI Barry Primary IMANI PUENTES5 [place] Insurance:MEDICARE BROWNDOB: [place] PART A BPolicy Number: [id number] Hospital 90669Ykf: (006) [id number] Repository [phone] (HP) Date:2018-08-06 08/24/2018 Secondary IMANI Barry Gilead Insurance:HUMANA BROWNDOB: Community COMMERCIALPolicy [id number] Hospital Number: Repository [id number] Date:1719-64-64QE [place] 3[address]WP: 08/24/2018 Tertiary NOT GIVENUNK Hali Insurance:SELF PAY [facility] Hospital Number: Effective Repository Date:2018-08-24 08/24/2018 IMANI W Primary IMANI PUENTES5 [place] Insurance:MEDICARE BROWNDOB: [place] PART A BPolicy Number: [id number] Hospital 49139Bdi: 330 [id number] Repository [phone] () Date:2018-08-06 08/24/2018 Secondary IMANI Barry Hali Insurance:HUMANA BROWNDOB: [facility]ly [facility] COMMERCIALPolicy [id number] Hospital Number: Repository [id number] Date:9819-90-34OM[address] [address]XX: 08/24/2018 Tertiary NOT GIVENUNK Hali Insurance:SELF PAY [facility] Hospital Number: Effective Repository Date:2018-08-06 08/20/2018 IMANI Barry Primary IMANI PUENTES5 [place] Insurance:MEDICARE BROWNDOB: [place] PART A BPolicy Number: [id number] Hospital 87033Vcb: 330 [id number] Repository [phone] () Date:2018-08-04 08/20/2018 Secondary IMANI Lal Insurance:HUMANA BROWNDOB: [facility] COMMERCIALPolicy [id number] Hospital Number: Repository [id number] Date:5969-33-53XV[address] [address]HE: 08/20/2018 Tertiary NOT GIVENUNK [place] Insurance:SELF PAY [facility] Hospital Number: Effective Repository Date:2018-08-20 08/20/2018 IMANI W Primary IMANI PUENTES5 MARSH Insurance:MEDICARE BROWNDOB: [facility], or PART A BPolicy Number: [id number] Hospital 43882Gcv: 330 [id number] Repository [phone] () Date:2018-08-04 08/20/2018 Secondary IMANI Lal Insurance:HUMANA BROWNDOB: [facility] [id number] Hospital Number: Repository [id number] Date:8256-04-78LV [address] [address]WG: 08/20/2018 Tertiary NOT GIVENUNK Hali Insurance:SELF PAY [facility] Hospital Number: Effective Repository Date:2018-08-04 08/06/2018 IMANI Barry Primary IMANI MINER1445 [place] Insurance:MEDICARE BROWNDOB: [facility] PART A BPolicy Number: [id number] Hospital 92825Nju: 330 [id number] Repository [phone] () Date:2018-07-19 08/06/2018 Secondary IMANI Lal Insurance:HUMANA BROWNDOB: [facility] [id number] Hospital Number: Repository [id number] Date:1699-47-26PL [address] [address]EU: 08/06/2018 Tertiary NOT GIVENUNK Hali Insurance:SELF PAY [facility] Hospital Number: Effective Repository Date:2018-08-04 08/04/2018 IMANI W Primary IMANI MINER1445 SAL[place] Insurance:MEDICARE BROWNDOB: [facility], or PART A BPolicy Number: [id number] Hospital 04335Dlu: 330 [id number] Repository [phone] () Date:2018-07-08 08/04/2018 Secondary IMANI Lal Insurance:HUMANA BROWNDOB: [facility] [id number] Hospital Number: Repository [id number] Date:4254-79-38JJ [address] [address]CU: 08/04/2018 Tertiary NOT GIVENUNK [place] Insurance:SELF PAY [facility] Hospital Number: Effective Repository Date:2018-07-29 08/03/2018 IMANI Barry Primary IMANI PUENTES5 [place] Insurance:MEDICARE BROWNDOB: [place] PART A BPolicy Number: [id number] Hospital 40622Pru: (477) [id number] Repository [phone] () Date:2018-04-27 08/03/2018 Secondary IMANI Lal Insurance:HUMANA BROWNDOB: [facility] [id number] Hospital Number: Repository [id number] Date:7596-06-03FU[address] [address]IW: 08/03/2018 Tertiary NOT GIVENUNK [place] Insurance:SELF PAY [facility] Hospital Number: Effective Repository Date:2018-08-03 07/19/2018 IMANI Barry Primary IMANI PUENTES5 [place] Insurance:MEDICARE BROWNDOB: [place] PART A BPolicy Number: [id number] Hospital 32441Zrn: (774) [id number] Repository [phone] () Date:2018-06-28 07/19/2018 Secondary IMANI Loveoster Insurance:HUMANA BROWNDOB: [facility] [id number] Hospital Number: Repository [id number] Date:6990-59-13VD[address] [address]BD: 07/19/2018 Tertiary NOT GIVENUNK [place] Insurance:SELF PAY [facility] Hospital Number: Effective Repository Date:2018-06-28 06/24/2018 IMANI Barry Primary IMANI MARSH Insurance:MEDICARE BROWNDOB: [place] PART A BPolicy Number: [id number] Hospital 62299Cnn: (727) [id number] Repository [phone] () Date:2018-06-08 06/24/2018 Secondary IMANI Barry Hali Insurance:HUMANA BROWNDOB: Community COMMERCIALPolicy [id number] Hospital Number: Repository [id number] Date:3896-69-29CU[address] [address]WN: 06/24/2018 Tertiary NOT GIVENUNK [place] Insurance:SELF PAY [facility] Hospital Number: Effective Repository Date:2018-06-24 06/24/2018 IMANI Barry Primary IMANI PUENTES5 [place] Insurance:MEDICARE BROWNDOB: [place] PART A BPolicy Number: [id number] Hospital 16208Qpg: (618) [id number] Repository [phone] () Date:2018-06-08 06/24/2018 Secondary IMANI Barry [place] Insurance:HUMANA BROWNDOB: [facility] COMMERCIALPolicy [id number] Hospital Number: Repository [id number] Date:1092-66-97LI[address] [address]CZ: 06/24/2018 Tertiary NOT GIVENUNK Hali Insurance:SELF PAY [facility] Hospital Number: Effective Repository Date:2018-06-24 06/24/2018 IMANI W Primary IMANI PUENTES5 [place] Insurance:MEDICARE BROWNDOB: [place] PART A BPolicy Number: [id number] Hospital 24170Lex: (983) [id number] Repository [phone] () Date:2018-06-08 06/24/2018 Secondary IMANI Barry Hali Insurance:HUMANA BROWNDOB: Community COMMERCIALPolicy [id number] Hospital Number: Repository [id number] Date:7574-74-80NR[address] [address]RU: 06/24/2018 Tertiary NOT GIVENUNK [place] Insurance:SELF PAY [facility] Hospital Number: Effective Repository Date:2018-06-08 06/08/2018 IMANI W Primary IMANI PUENTES5 [place] Insurance:MEDICARE BROWNDOB: [place] PART A BPolicy Number: [id number] Hospital 02502Zju: (628) [id number] Repository [phone] () Date:2018-06-01 06/08/2018 Secondary IMANI Barry Hali Insurance:HUMANA BROWNDOB: [facility] [id number] Hospital Number: Repository [id number] Date:9559-75-53FN[address] [address]DL: 06/08/2018 Tertiary NOT GIVENUNK [place] Insurance:SELF PAY [facility] Hospital Number: Effective Repository Date:2018-06-08 05/21/2018 IMANI W Primary IMANI PUENTES5 [place] Insurance:MEDICARE BROWNDOB: [facility] [place], [place] PART A BPolicy Number: [id number] Hospital 37734Hha: (349) [id number] Repository [phone] () Date:2018-05-21 05/21/2018 Secondary IMANI Asha [place] Insurance:HUMANA BROWNDOB: [facility] COMMERCIALPolicy [id number] Hospital Number: Repository [id number] Date:7673-82-72VQ [address] [address]PK: 05/21/2018 Tertiary NOT GIVENUNK [place] Insurance:SELF PAY [facility] Hospital Number: Effective Repository Date:2018-05-21 04/27/2018 IMANI W Primary IMANI MINER1445 [place] Insurance:MEDICARE BROWNDOB: [facility], or PART A BPolicy Number: [id number] Hospital 72779Awl: (744) [id number] Repository [phone] () Date:2018-03-30 04/27/2018 Secondary IMANI Barry [place] Insurance:HUMANA MORGANDOB: [facility] [id number] Hospital Number: Repository [id number] Date:6463-30-94CK[address] [address]SP: 04/27/2018 Tertiary NOT GIVENUNK [place] Insurance:SELF PAY [facility] Hospital Number: Effective Repository Date:2018-04-27 04/20/2018 IMANI W Primary IMANI PUENTES5 [place] Insurance:MEDICARE BROWNDOB[place] PART A BPolicy Number: [id number] Hospital 55230Rbn: (301) [id number] Repository [phone] () Date:2018-04-20 04/20/2018 Secondary IMANI W Hali Insurance:HUMANA BROWNDOB: [facility] [id number] Hospital Number: Repository [id number] Date:3045-19-56FM[address] [address]QS: 04/20/2018 Tertiary NOT GIVENUNK Hali Insurance:SELF PAY [facility] Hospital Number: Effective Repository Date:2018-04-20 04/20/2018 IMANI W Primary IMANI MINER1445 [place] Insurance:MEDICARE BROWNDOB: [place] PART A BPolicy Number: [id number] Hospital 16609Wtk: 330 [id number] Repository [phone] () Date:2018-04-20 04/20/2018 Secondary IMANI Barry Hali Insurance:HUMANA BROWNDOB: [facility] [id number] Hospital Number: Repository [id number] Date:6845-90-46GU[address] [address]AD: 04/20/2018 Tertiary NOT GIVENUNK [place] Insurance:SELF PAY [facility] Hospital Number: Effective Repository Date:2018-04-20 03/30/2018 IMANI W Primary IMANI MINER1445 [place] Insurance:MEDICARE BROWNDOB: [place] PART A BPolicy Number: [id number] Hospital 78799Ofn: (777) [id number] Repository [phone] () Date:2018-03-29 03/30/2018 Secondary IMANI W [place] Insurance:HUMANA BROWNDOB: [facility] [id number] Hospital Number: Repository [id number] Date:4932-56-55OM[address] [address]LZ: 03/30/2018 Tertiary NOT GIVENUNK [place] Insurance:SELF PAY [facility] Hospital Number: Effective Repository Date:2018-03-30 02/22/2018 IMANI Barry Primary IMANI MARSH Insurance:MEDICARE BR[place]NDOB[place] PART A BPolicy Number: [id number] Hospital 50406Man: [id number] Repository [phone] Date:2017-11-20 0-7 (HP) 02/22/2018 Secondary IMANI Barry Hali Insurance:HUMANA BROWNDOB: [facility] [id number] Hospital Number: Repository [id number] Date:2525-65-14DN [address] [address]JW: 02/22/2018 Tertiary NOT GIVENUNK Hali Insurance:SELF PAY [facility] Hospital Number: Effective Repository Date:2018-03-04 02/09/2018 IMANI W Primary IMANI MARSH Insurance:MEDICARE [place]NDOB: [place] PART A BPolicy Number: [id number] Hospital 24196Agm: [id number] Repository [phone] Date:2018-02-05 0-7 (HP) 02/09/2018 Secondary IMANI Barry Hali Insurance:HUMANA BROWNDOB: Community COMMERCIALPolicy [id number] Hospital Number: Repository [id number] Date:7952-49-37OG [address] [address]GG: 02/09/2018 Tertiary NOT GIVENUNK [place] Insurance:SELF PAY [facility] Hospital Number: Effective Repository Date:2018-02-05 02/05/2018 IMANI Barry Primary IMANI MARSH Insurance:MEDICARE [place]NDOB: [place] PART A BPolicy Number: [id number] Hospital 95388Bbi: [id number] Repository [phone] Date:2018-02-05 0-7 (HP) 02/05/2018 Secondary IMANI Barry [place] Insurance:HUMANA BROWNDOB: Community COMMERCIALPolicy [id number] Hospital Number: Repository [id number] Date:6008-20-35MN [address] [address]ZD: 02/05/2018 Tertiary NOT GIVENUNK Hali Insurance:SELF PAY [facility] Hospital Number: Effective Repository Date:2018-02-05 02/02/2018 IMANI W Primary IMANI PUENTES5 [place] Insurance:MEDICARE BROWNDOB: [place], or PART A BPolicy Number: [id number] Hospital 80545Qmz: [id number] Repository [phone] Date:2018-02-01 0-7 (HP) 02/02/2018 Secondary IMANI Barry Hali Insurance:HUMANA BROWNDOB: Formerly [facility] COMMERCIALPolicy [id number] Hospital Number: Repository [id number] Date:[id number] [address]SH: 02/02/2018 Tertiary NOT GIVENUNK [place] Insurance:SELF PAY [facility] Number: Effective Repository Date:2018-02-02 01/04/2018 IMANI W Primary IMANI PUENTES5 [place] Insurance:MEDICARE BROWNDOB: [facility] [facility] DRCONETOE, or PART A BPolicy Number: [id number] Hospital [address]Eng: [id number] Repository [phone] Date:2018-01-04 0-7 (HP) 01/04/2018 Secondary IMANI Barry [place] Insurance:HUMANA BROWNDOB: Community COMMERCIALPolicy [id number] Hospital Number: Repository [id number] Date:[id number] [address]LZ: 01/04/2018 Tertiary NOT GIVENUNK [place] Insurance:SELF PAY [facility]ly [facility] Number: Effective Repository Date:2018-01-04 11/20/2017 IMANI W Primary IMANI [id number] SAL[place] Insurance:MEDICARE [place]OB[place] PART A BPolicy Number: [id number] Hospital [address]Pdv: [id number] Repository [phone] Date:2017-10-19 0-7 (HP) 11/20/2017 Secondary IMANI Barry Hali Insurance:HUMANA BROWNDOB: Formerly [facility] COMMERCIALPoly [id number] Hospital Number: Repository [id number] Date:[id number] [address]DA: 11/20/2017 Tertiary NOT GIVENUNK Hali Insurance:SELF PAY Formerly [facility] Number: Effective Repository Date:2017-10-19 10/23/2017 IMANI W Primary IMANI [id number] [place] Insurance:MEDICARE BROWNDOB: [place], [place] PART A BPolicy Number: [id number] Hospital [address]687Qgd: [id number] Repository [phone] Date:2017-10-23 0-7 (HP) 10/23/2017 Secondary IMANI Barry Hali Insurance:HUMANA BROWNDOB: Formerly [facility] [id number] Hospital Number: Repository [id number] Date:[id number] [address]OX: 10/23/2017 Tertiary NOT GIVENUNK Hali Insurance:SELF PAY [facility]ly [facility] Number: Effective Repository Date:2017-10-23 10/19/2017 IMANI W Primary IMANI [id number] [place] Insurance:MEDICARE BROWNDOB: [place] PART A BPolicy Number: [id number] Hospital 110[address]Gtz: [id number] Repository [phone] Date:2017-08-22 0-7 (HP) 10/19/2017 Secondary IMANI Barry Hali Insurance:HUMANA BROWNDOB: Formerly [facility] COMMERCIALPolicy [id number] Hospital Number: Repository [id number] Date:[id number] [address]YK: 10/19/2017 Tertiary NOT GIVENUNK Hali Insurance:SELF PAY Formerly [facility] Number: Effective Repository Date:2017-08-22
== END ==
PROVIDERS: Family Provider Internal Medicine; PCP Internal Medicine; Referring Provider Internal Medicine Cardiovascular Disease; Visit Provider Internal Medicine Cardiovascular Disease
DX: I25.10 Atherosclerotic heart disease of native coronary artery without angina pectoris (principal); I49.3 Ventricular premature depolarization; R94.31 Abnormal electrocardiogram [ECG] [EKG]; Z01.810 Encounter for preprocedural cardiovascular examination
CPT/HCPCS: 36415; 71046; 85025

== ENCOUNTER 2018-09-07 07:57 | Day surgery (SDC) | payer MEDICARE, OTHER, SELFPAY ==
[2018-08-24 07:30] VITALS: BMI 27.7
[2018-09-06 11:07] VITALS: BMI 28.1
[2018-09-06 12:43] VITALS: BMI 28.1
[2018-09-07] VITALS (19 sets, daily range): BP systolic 112–172; BP diastolic 64–88; PULSE 69–102; RESP 12–22; TEMP 36.8; O2SAT 91–99; BMI 28.8
[2018-09-07 11:40] LABS: ACT Activated Clotting Time 169 sec (74-137)
--- NOTE | 2018-09-07 11:45 | EKG12_ITS ---
Test Reason : CP Blood Pressure : / mmHG Vent. Rate : 074 BPM Atrial Rate : 074 BPM P-R Int : 146 ms QRS Dur : 096 ms QT Int : 380 ms P-R-T Axes : 059 -75 044 degrees QTc Int : 421 ms Normal sinus rhythm Left anterior fascicular block Abnormal ECG When compared with ECG of 03-JAN-2017 03:01, No significant change was found Confirmed by KAYLA ANTONIO, LEE ([id number]), brands editor JERAMIE REAL ([id number]) on 09/10/2018 2:22:45 PM Referred By: Kike Eaton Confirmed By:LEE GARZA MD
--- NOTE | 2018-09-07 11:55 | CL.I_ITS ---
Patient Name: IMANI MORA Study Date: 09/07/2018 Performing: Kike Eaton MD Ht: 68.11 inches 173 cm : 1940 Wt: 185.19 lbs 84 kg Age: 77 Gender: male BSA: 1.98 PROCEDURE(S) PERFORMED [id number]/LV [id number] W OR WO PTCA, EACH ADD'L ARTERY, SAME MAJOR [id number] W OR WO PTCA, SINGLE CORONARY ARTERY CLINICAL PROFILE AND CO-MORBIDITIES Indications: New Onset Angina <= 2 months, Worsening Angina, Stable Known CAD, Pre-Operative Eval uation Heart Failure: None Stress/Imaging Stress Echocardiogram: Yes Result: Negative Stress Echocardiogram: Negative Angina Classification Anginal Classification w/in 2 Weeks: CCS III CAD Presentations: Unstable angina. Comorbidities/Risk Factors: Hypertension Dyslipidemia CONCLUSIONS Normal LV size, wall motion,and systolic function Single vessel CAD of the LAD and DIAG Successful PTCA/CAMERON of mid LAD with a 2.5 x 38 Promus Synergy, post dilated with a 2.5 x 12 NC; 85%-- >0%, no dissection. Successful PTCA/CAMERON proximal DIAG with a 2.5 x 12 Promus Synergy, post dilated proximally with a 2.75 and 3.0 x 8 NC Balloon; 75%-->0%, no dissection. RECOMMENDATIONS Referred for immediate PCI Highly recommend quitting all tobacco products Follow up with primary machined parts quality inspector Risk factor modification ASA Indefinitley Plavix for at least 12 months Routine post interventional care Refer for Outpatient Cardiac Rehab Manual sheath removal per protocol Follow up with Dr. Eaton Manual sheath removal. DESCRIPTION OF PROCEDURE The patient arrived to the procedure lab. The risks and benefits of the procedure as well as a full d escription of our services here and lack of surgical backup were fully explained to the patient and/o r their significant other prior to the catheterization. The Timeout was completed, verifying the tona ect patient and procedure. The patient's procedural site was prepped and draped in the usual fashion. Local anesthetic was given subcutaneously to right groin region with Lidocaine 2%. Using a modified Seldinger technique, arterial access was obtained via the right femoral artery, a 4Fr sheath was inse rted. Left Coronary Artery selective angiography was performed in multiple views using a 4 Fr. JL5 c atheter. Right Coronary Artery selective angiography was then performed in multiple views using a 4 F r. 3DRC catheter. Left Ventriculography was performed in HODGES projection using a 4 Fr. Pigtail cathete r. LV to AO pullback pressures were then recordedThe images were reviewed and options discussed. A decision was then made to proceed with an Intervention, IVUS or other adjunct procedure. Arterial sheath was exchanged for a 6 Fr Sheath. ebu 3.75 Guide catheter was inserted and engaged into the LCA. bmw Guide wire was advanced to the LAD. emerge 2.00 x 12 Balloon catheter was advanced across lesion in the LAD, mid. PTCA balloon inflated at 8 atms for 12 secs. PTCA balloon inflated at 10 atms for 6 secs. PTCA balloon inflated at 8 atms for 8 secs. Angiogram performed post balloon dil atation. synergy 2.5 x 38 Drug Eluting stent was advanced across the lesion in the LAD, mid. Angiogra m performed post stent deployment. nc emerge 2.50 x 12 Balloon catheter was inserted post stent. Luz Marina ogram performed post balloon dilatation. bmw Guide wire was advanced to the Diagonal. synergy 2.5 x 1 2 Drug Eluting stent was advanced across the lesion in the first diagonal, proximal. Angiogram perfor med post stent deployment. nc emerge 2.75 x 8 Balloon catheter was inserted post stent. nc emerge 3.0 0 x 8 Balloon catheter was inserted post stent. Angiogram performed post balloon dilatation. Contrast was injected through the sheath and the Right Iliac and Femoral artery were asse ssed for possible closure device. CORONARY ANGIOGRAPHY DOMINANCE: Right Dominant LEFT HEART ASSESSMENT Left Ventricular Ejection Fraction: by LV Gram 55-60 % Normal Left Ventricular systolic function Normal LV wall motion LEFT MAIN: Angiographically normal LEFT ANTERIOR DECENDING ARTERY: MID LAD: 85 % Stenosis DIAGONAL 1: Proximal - 75 % Stenosis CIRCUMFLEX ARTERY: Non-obstructive RIGHT CORONARY ARTERY: Non-obstructive INTERVENTION INFORMATION LESION SITE: LAD (Mid) Lesion Complexity: High/C, lesion at bifurcation: No, thrombus present: No, lesion length: 38 mm, cul prit lesion: Yes Pre Stenosis: 85 % Pre intervention MATIAS flow: 3 PROCEDURE: Drug Eluting Stent with pre and post dilatation Post Stenosis: 0 % Post intervention MATIAS flow: 3 Lesion Devices: Steven Sci EMERGE MR 2.00x12 BALLOON Steven Sci Synergy MR CAMERON 2.50x38 Steven Sci NC EMERGE MR 2.50x12 BALLOON LESION SITE: Diagonal (Proximal) Lesion Complexity: Non-High/Non-C, lesion at bifurcation: Yes, thrombus present: No, lesion length: 1 2 mm, culprit lesion: No Pre Stenosis: 75 % Pre intervention MATIAS flow: 3 PROCEDURE: Drug Eluting Stent with post dilatation Post Stenosis: 0 % Post intervention MATIAS flow: 3 Lesion Devices: Steven Sci Synergy MR CAMERON 2.50x12 Steven Sci NC EMERGE MR 2.75x08 BALLOON Steven Sci NC EMERGE MR 3.00x08 BALLOON COMPLICATIONS No Complications PROCEDURE MEDICATIONS Oxygen: 2 L/min via nasal cannula Heparin 6000 unit(s) IV 09/07/2018 11:00:35 Nitro 200 mcg IC 09/07/2018 10:53:50 Nitro 200 mcg IC 09/07/2018 10:53:50 Nitro 200 mcg IC 09/07/2018 11:03:08 Nitro 200 mcg IC 09/07/2018 11:08:30 SUMMARY OF HEMODYNAMIC DATA Time AIR REST ECG 08:24:55 AO 134/76 (102) SA 10:51:04 LV 143/-11, 13 10:58:33 LV 145/-12, 14 10:58:40 LVp 138/-12, 14 10:58:46 AOp 137/72 (101) 10:58:51 Signed By Kike Eaton MD On 09/07/2018 11:55:15 Kike Eaton MD
--- NOTE | 2018-09-07 13:15 | NURSING ---
Pt found with hematoma, Femstop no longer in correct position, pt stated he might have moved. Manual pressure held, Femstop position corrected. Pt again instructed to keep right leg and hips still and educated on the reasoning and importance of staying flat. Patient verbalized understanding.
--- NOTE | 2018-09-07 14:30 | NURSING ---
On assessment pt was using the urinal and found to have a roughly fist sized hematoma. Manual pressure applied immediately to site by this RN, Dr Eaton notified by another RN. Femstop placed per Dr Godoy orders and inflated to 40mm/hg. Manual pressure held for 30 minutes prior to femstop being placed. pt tolerated without complication.
[2018-09-07] MEDS: Morphine 2 MG/ML Syringe IV ×3 (15:04→22:09)
[2018-09-07] MEDS: Gabapentin 300 MG Capsule PO (17:05)
[2018-09-07] MEDS: 0.9% Normal Saline 1,000 ML 150 ML IV (17:07)
[2018-09-07] MEDS: oxyCODONE 5 MG Tablet PO (17:20)
[2018-09-07] MEDS: LORazepam 1 MG Tablet PO (18:15)
[2018-09-07] MEDS: Budesonide Respules 0.5 MG/2 ML AMPUL.NEB. INHALATION (18:44)
[2018-09-07] MEDS: Albuterol 2.5 MG/3 ML VIAL.NEB. INHALATION (18:44)
[2018-09-07] MEDS: Metoclopramide 10 MG/2 ML Vial 5 MG IV (21:07)
[2018-09-07] MEDS: Aspirin 81 MG TAB.CHEW PO (22:10)
[2018-09-07] MEDS: Calcium Carbonate 500 MG Tablet 1500 MG PO (22:11)
[2018-09-07] MEDS: amLODIPine 2.5 MG Tablet PO (22:11)
[2018-09-07] MEDS: Finasteride 5 MG Tablet PO (22:12)
[2018-09-07] MEDS: Rosuvastatin Calcium 5 MG Tablet PO (22:22)
[2018-09-07] MEDS: Losartan Potassium 100 MG Tablet PO (22:23)
[2018-09-08] VITALS (12 sets, daily range): BP systolic 106–145; BP diastolic 56–79; PULSE 72–114; RESP 10–18; TEMP 36.7; O2SAT 92–97; BMI 28.0
[2018-09-08 04:38] LABS: Hemoglobin 15.6 g/dl (13.0-16.5); Mean Corp Hgb Conc 34.7 g/gl (32-36); Mean Corpuscular Hgb 32.5 pg (27.0-32.0); Mean Corpuscular Volume 93.8 fL (80-94); Mean Platelet Vol. 9.1 fl (6.2-12.0); Platelet Count 237 K/mm3 (150-450); RBC Distribution Width CV 12.8 % (11.6-14.6); RBC Distribution Width SD 43.2 fl (35.1-43.9); White Blood Count 10.2 K/mm3 (4.4-11.0)
[2018-09-08 04:39] LABS: Scan Indicated on CBC? Y/N NO
[2018-09-08 04:53] LABS: Anion Gap 10 (5-15); BUN 24 mg/dL (7-18); BUN/Creat Ratio 21.4 RATIO (10-20); Calcium,Total 8.6 mg/dL (8.5-10.1); Chloride 100 mmol/L (98-107); Cholesterol 131 mg/dL (200); Creatinine, Serum 1.12 mg/dL (0.70-1.30); EST Glomerular Filtration Rate 68 mL/min (>60); Est Glom Filt Rate - Afr Amer 82 mL/min (>60); Estimated Creatinine Clearance 54.29 ml/min; Glucose 116 mg/dL (74-106); High Density Lipoprotein 36 mg/dL; Potassium 4.7 mmol/L (3.5-5.1); Sodium Level 135 mmol/L (136-145); Triglycerides 163 mg/dL; Very Low Density Lipoprotein 33 mg/dL (5-40)
--- NOTE | 2018-09-08 06:00 | ADUL_ITS ---
Reason For Study: RT groin pain/ecchymosis Right Velocities Left Velocities RT PRACTICE MANAGERS - 1.1 x 1.0 cm with a velocity of 112.0 LTCFA - 1.1 x 1.0 cm with a velocity of 91.9 cm/s cm/s LT CFV demonstrates normal phasic flow signal. RT CFV demonstrates normal phasic flow signal No evidence of pseudoaneurysm or AV fistula. Procedure Exam performed portable in ICU/CCU. Interpretation Summary Common femoral arteries appear bilaterally patent, demonstrating pulsatile color flow bilaterally. There is no evidence of pseudoanuerysm, arterio-venous fistula, or other iatrogenic abnormality on either side. Ordering Physician: Kike Eaton Referring Physician: Tania Jackson Performed By: Emily Murrell RVT
[2018-09-08] MEDS: Levothyroxine 112 MCG Tablet PO (06:28)
[2018-09-08] MEDS: Albuterol 2.5 MG/3 ML VIAL.NEB. INHALATION (07:17)
[2018-09-08] MEDS: Budesonide Respules 0.5 MG/2 ML AMPUL.NEB. INHALATION (07:17)
[2018-09-08] MEDS: Clopidogrel Bisulfate 75 MG Tablet PO (08:22)
[2018-09-08] MEDS: Cyanocobalamin 500 MCG Tablet 250 MCG PO (08:23)
[2018-09-08] MEDS: Multivitamins,Therapeutic Tablet 1 TABLET PO (08:23)
[2018-09-08] MEDS: Psyllium 1 PACKET PO (08:23)
[2018-09-08] MEDS: hydroCHLOROthiazide 25 MG Tablet PO (08:23)
[2018-09-08] MEDS: Gabapentin 300 MG Capsule PO (08:23)
[2018-09-08] MEDS: Pantoprazole Sodium 20 MG Tablet PO (08:23)
--- NOTE | 2018-09-08 08:38 | PCM.DC.CCA ---
Discharge Diet: No Restrictions - You may continue your normal diet. May resume sexual activity in: No Restrictions Lifting Restrictions: 10 pounds and also avoid any pushing or pulling for 3 days after your test. Call your doctor if your incision/area has: Continuous Slow Oozing, Sudden Increased Bleeding, Increased Pain/ Swelling, Increased Redness, Foul Smelling Discharge, Swelling at the incision site Call your doctor if you observe: Fever of 101 or Higher, Shortness of breath, Chest pain Remove Dressing in (days):: 1 Additional Dressing/Incision Instructions:: Keep the dressing (bandage) on until the next morning. You may then shower, but do not take a tub bath for 5 days after your test. It is normal to have some tenderness and discomfort at the puncture site. Sometimes bruising also occurs. However, if pain, numbness, or coldness occurs below the puncture site (in your leg, toes, arms or fingers) call your doctor at once. You may have a small, marble sized knot at the puncture site. This is normal. Do not rub it. It will go away in 4-6 weeks. Bleeding can occur from the area where the puncture was done. Blood may spurt or drip from the site. If blood spurts, apply pressure right away to stop bleeding and call 911. Although rare, bleeding into the tissue (hematoma) can also occur. If this happens, a large, firm area goose egg under the skin will appear. If any of these occur, lie down as flat as you can and have someone apply firm pressure to the cath site with a gauze pad or a clean washcloth for 10-15 minutes. Call 911 or go to the Emergency Department. Additional Instructions: You will need to stay on your Plavix for at least one year When you come in to the office visit we will discuss cardiac rehab Allergies/Adverse Reactions: Allergies amoxicillin [From Augmentin] Adverse Reaction (Intermediate, Verified 09/06/18 11:12) Nausea/Vom/Diarrhea clavulanic acid [From Augmentin] Adverse Reaction (Intermediate, Verified 09/06/18 11:12) Nausea/Vom/Diarrhea lisinopril Adverse Reaction (Intermediate, Verified 09/06/18 11:12) cough atorvastatin [From Lipitor] Adverse Reaction (Verified 09/06/18 11:12) Pain in joints gemfibrozil [From Lopid] Adverse Reaction (Verified 09/06/18 11:12) Pain in joints niacin Adverse Reaction (Verified 09/06/18 11:12) Other HOT FLASHES Medications to take at Discharge Aspirin [Aspirin, Baby] 81 mg PO QHS 03/20/14 Finasteride [Proscar] 5 mg PO QHS 03/20/14 Magnesium 500 mg PO DAILY 03/20/14 Multivitamins,Therapeutic [Multivitamin] 1 tab PO DAILY 03/20/14 Allergy Shot 1 unit IM QWEEK 08/13/16 Bilberry 375 mg PO QHS 08/13/16 Calcium Carbonate [Calcium] 1,500 mg PO QHS 08/13/16 Cholecalciferol (VIT D3) [Vitamin D3] 2,000 unit PO QHS 08/13/16 Testosterone Cypionate [Depo-Testosterone] 100 mg IM UD 08/13/16 Ubidecarenone [Co Q-10] 30 mg PO QHS 08/13/16 omeprazole 20 mg capsule,delayed release 20 mg PO DAILY 09/09/17 psyllium seed (sugar) oral powder 1 tbsp PO DAILY 09/09/17 budesonide-formoterol HFA 160 mcg-4.5 mcg/actuation aerosol inhaler 2 puff INHALATION BID 05/21/18 amlodipine 2.5 mg tablet 2.5 mg PO QHS 06/08/18 cyanocobalamin (vit B-12) 500 mcg tablet 250 mcg PO DAILY@0800 tab 06/08/18 labetalol 200 mg tablet 200 mg PO BID #180 tab 08/17/18 levothyroxine 112 mcg tablet 112 mcg PO QDAY #90 tab 08/17/18 Gabapentin [Neurontin] 300 mg PO TID 08/20/18 Hydrochlorothiazide [Hctz] 25 mg PO DAILY 08/20/18 Rosuvastatin Calcium 5 mg PO QHS 08/20/18 sertraline 25 mg tablet 25 mg PO LUNCH #90 tab 08/31/18 losartan 100 mg tablet 100 mg PO QHS #90 tab 09/02/18 clopidogrel 75 mg tablet 75 mg PO .COMPLEX #30 tab 09/03/18 Primary Care Physician: Tania Jackson MD [Primary Care Provider] - Test Results: Test results from this visit will be discussed in further detail at your follow-up appointment, if applicable. Please Follow Up With: Candice Galvez PA When: 09/20 at 1pm Cardiac Rehabilitation Info Cardiac Rehabilitation Program Information: Cardiac Rehabilitation is important for patients like you who are recovering from a heart problem. Cardiac rehabilitation programs are recognized as integral to the continued care of the patient with coronary heart disease. The cardiac rehabilitation program is designed to optimize a patient's physical, psychological, and social functioning. Health life care planner work in cardiac rehabilitation programs and assist you with getting the treatments you need to get stronger and healthier - like exercise, healthy eating habits, and medications. Cardiac rehabilitation has been show to help people with heart problems live longer and have better life enjoyment than people who do not go to cardiac rehabilitation. Please contact the Cardiac Rehabilitation Program at [facility] at in two weeks if you have not heard from them.
--- NOTE | 2018-09-08 08:43 | CRPHASE1 ---
Patient Data/Charges Professor Of Pathology:: Kike Eaton Phase I Charge:: Level I - Education Risk Factors/Lifestyle Smoking Status: Never smoker Hx Hypertension: Yes - ON MEDS Height: 1.73 m Weight:: 84 kg BMI: 28.0 Caffeine: Yes Family History: Family History (Last Reviewed 09/06/18 @ 11:07 by Nel Mcarthur) Grandfather CVA (cerebral vascular accident) Depression Brother COPD (chronic obstructive pulmonary disease) Grandmother Depression Son Arthritis Father Arthritis CAD (coronary artery disease) Mother Hypertension Hyperlipidemia Pacemaker Other Cancer Family History: High Cholesterol, Hypertension Laboratory Values: Cardiac Rehab Phase I Labs Triglycerides 163 mg/dL (-199) 09/08/18 04:25 Cholesterol 131 mg/dL (200) 09/08/18 04:25 LDL Cholesterol 62 mg/dL (0-130) 09/08/18 04:25 HDL Cholesterol 36 mg/dL (40-) L 09/08/18 04:25 Phase I Education Given On:: [place], Nutrition, Antiplatelet medication Hospital Course Cardiac Cath Date:: 09/07/18 Medical/Surgical History Pulmonary:: Yes EH:: Yes PTCA:: Yes Discharge/Home/Social Eval Discharge Disposition: Home
--- NOTE | 2018-09-08 08:47 | CRPH1.INSTRU ---
General Education CAD and cardiac anatomy and function:: Patient communicates acknowledgment Explanation of diagnoses and procedures:: Patient communicates acknowledgment Sign/Symptoms of NE:: Patient communicates acknowledgment Antiplatelet therapy: Patient communicates acknowledgment Proper use of NTG-SL: Patient communicates acknowledgment Emergency procedures and activation of EMS: Patient communicates acknowledgment Compliance of all prescribed medications: Patient communicates acknowledgment Smoking Patient Nicotine/Smoking Risk Factors Are:: Never smoked Dyslipidemia Recommendations Include:: Lipid profile not available Overweight/Obesity Patient Overweight/Obesity Risk Factors Are:: Overweight = 26-29 Overweight/Obesity:: Patient communicates acknowledgment Hypertension Recommendations Include:: Maintain BP <130/85 Hypertension:: Patient communicates acknowledgment - ON MEDS STILL HARD TO CONTROL Heart Disease Patient Heart Disease Risk Factors Are:: Family history of heart disease < 65 years old - MOM HAD PACEMAKER Heart Disease Response Code:: Patient communicates acknowledgment Diabetes Patient Diabetes Risk Factors Are:: No documented hx of diabetes Metabolic Syndrome Patient Metabolic Syndrome Risk Factors Are [3 of 5]:: Hypertension Metabolic Syndrome Response Code:: Patient communicates acknowledgment Sedentary Sedentary Response Code:: Patient communicates acknowledgment Stress Stress Response Code:: Patient communicates acknowledgment
--- NOTE | 2018-09-08 09:04 | PCM.PN.CARD ---
Subjectve: Patient doing very well this morning. Right groin is clean/dry/intact without evidence of thrills or bruits. Patient has a mild ecchymosis over his groin site after he had a groin bleed yesterday after getting up to go to the bathroom after his bed rest was . Direct manual pressure was held for 30 minutes time, followed by FemoStop. He has 2+ DP PT pulses bilaterally and has had no additional bleeding. Ultrasound yesterday was negative for pseudoaneurysm, repeat ultrasound is pending. Patient denies any chest pain. EKG shows normal sinus rhythm with rare PVC. Telemetry shows normal sinus rhythm with rare PVC. Objective: Vital Signs Temp Pulse Resp BP Pulse Ox 98.0 F 104 H 16 142/73 H 97 09/08/18 00:00 09/08/18 08:00 09/08/18 08:00 09/08/18 08:00 09/08/18 08:00 Oxygen Delivery Method Room Air Weight: 185 lb 3.013 oz Body Mass Index (BMI) 28.8 Intake and Output for Last 24 Hours 09/06/18 09/07/18 09/08/18 23:59 23:59 23:59 Intake Total 1182 / 1182 375 / 375 Output Total 650 / 650 Balance 532 / 532 375 / 375 General: Awake, Alert, Oriented x 3 HEENT: PERRL, EOMI, Sclera Non Icteric Neck: Supple, Good ROM, No Lymph Node Enlargement Lungs: Clear to auscultation Cardiovascular: Regular Rhythm, Normal S1, Normal S2, No Murmurs, No Rubs, No Gallops Vascular: No Carotid Bruits, Normal Femoral Pulses, Normal Radial Pulses, Normal Dorsalis Pedal Pulse, Normal Posterior Tibial Pulses Abdomen: Bowel Sounds Present, Soft, Non Tender, No HSM, No Organomegaly Extremities: No Cyanosis, No Clubbing, No edema Neurological: No Focal Motor or Sensory Deficit 09/08/18 04:25: Sodium 135 L, Potassium 4.7, Chloride 100, Carbon Dioxide 25.0, Anion Gap 10, BUN 24 H, Creatinine 1.12, Est GFR (MDRD) Af Amer 82, Est GFR (MDRD) Non-Af 68, BUN/Creatinine Ratio 21.4 H, Glucose 116 H, Calcium 8.6, Triglycerides 163, Cholesterol 131, LDL Cholesterol 62, VLDL Cholesterol 33, HDL Cholesterol 36 L 09/08/18 04:25: WBC 10.2, RBC 4.80, Hgb 15.6, Hct 45.0, MCV 93.8, MCH 32.5 H, MCHC 34.7, RDW 12.8, RDW Differential 43.2, Plt Count 237, MPV 9.1 Rhythm: EKG: ECHO: Stress Test: Cardiac Cath: PCI: CT Surgery: Holter monitor: EPS: PPM: CXR: Chest CT Scan: Medical Necessity - Tobacco Use Smoking Status: Never smoker Assessment/Plan 1. Coronary artery disease: Patient underwent successful angioplasty and drug-eluting stenting x2, one to the LAD, one to the diagonal, with an excellent result. He has had no further chest pain, and his PVCs have improved although not completely resolved. Patient feels much better this morning. His right groin despite his hematoma yesterday is soft, with mild ecchymosis. He has no significant tenderness. He has 2+ DP and PT pulses bilaterally. At this point I would recommend baby aspirin, Plavix, antihypertensives, and discharged home. He will follow-up with our office in 2 weeks time followed by cardiac rehab to assist with blood pressure, PVCs, and cardiac health. Would not recommend antiarrhythmic therapy at this time. If the patient's blood pressure is elevated during cardiac rehab we can increase his beta-hannah to assist with PVCs. 2. Hyperlipidemia: Continue statin based medications. Repeat lipid profile after cardiac rehab. 3. Patient may be discharged home. Follow up with Dr. Eaton. Code Visit Inpatient E&M: 23971 Subs Hosp L2
--- NOTE | 2018-09-08 09:09 | PN.CARD_ITS ---
Subjectve: Patient doing very well this morning. Right groin is clean/dry/intact without evidence of thrills or bruits. Patient has a mild ecchymosis over his groin site after he had a groin bleed yesterday after getting up to go to the bathroom after his bed rest was . Direct manual pressure was held for 30 minutes time, followed by FemoStop. He has 2+ DP PT pulses bilaterally and has had no additional bleeding. Ultrasound yesterday was negative for pseudoaneurysm, repeat ultrasound is pending. Patient denies any chest pain. EKG shows normal sinus rhythm with rare PVC. Telemetry shows normal sinus rhythm with rare PVC. Objective: Vital Signs Temp Pulse Resp BP Pulse Ox 98.0 F 104 H 16 142/73 H 97 09/08/18 00:00 09/08/18 08:00 09/08/18 08:00 09/08/18 08:00 09/08/18 08:00 Oxygen Delivery Method Room Air Weight: 185 lb 3.013 oz Body Mass Index (BMI) 28.8 Intake and Output for Last 24 Hours 09/06/18 09/07/18 09/08/18 23:59 23:59 23:59 Intake Total 1182 / 1182 375 / 375 Output Total 650 / 650 Balance 532 / 532 375 / 375 General: Awake, Alert, Oriented x 3 HEENT: PERRL, EOMI, Sclera Non Icteric Neck: Supple, Good ROM, No Lymph Node Enlargement Lungs: Clear to auscultation Cardiovascular: Regular Rhythm, Normal S1, Normal S2, No Murmurs, No Rubs, No Gallops Vascular: No Carotid Bruits, Normal Femoral Pulses, Normal Radial Pulses, Normal Dorsalis Pedal Pulse, Normal Posterior Tibial Pulses Abdomen: Bowel Sounds Present, Soft, Non Tender, No HSM, No Organomegaly Extremities: No Cyanosis, No Clubbing, No edema Neurological: No Focal Motor or Sensory Deficit 09/08/18 04:25: Sodium 135 L, Potassium 4.7, Chloride 100, Carbon Dioxide 25.0, Anion Gap 10, BUN 24 H, Creatinine 1.12, Est GFR (MDRD) Af Amer 82, Est GFR (MDRD) Non-Af 68, BUN/Creatinine Ratio 21.4 H, Glucose 116 H, Calcium 8.6, Triglycerides 163, Cholesterol 131, LDL Cholesterol 62, VLDL Cholesterol 33, HDL Cholesterol 36 L 09/08/18 04:25: WBC 10.2, RBC 4.80, Hgb 15.6, Hct 45.0, MCV 93.8, MCH 32.5 H, MCHC 34.7, RDW 12.8, RDW Differential 43.2, Plt Count 237, MPV 9.1 Rhythm: EKG: ECHO: Stress Test: Cardiac Cath: PCI: CT Surgery: Holter monitor: EPS: PPM: CXR: Chest CT Scan: Medical Necessity - Tobacco Use Smoking Status: Never smoker Assessment/Plan 1. Coronary artery disease: Patient underwent successful angioplasty and drug- eluting stenting x2, one to the LAD, one to the diagonal, with an excellent r esult. He has had no further chest pain, and his PVCs have improved although not completely resolved. Patient feels much better this morning. His right groin despite his hematoma yesterday is soft, with mild ecchymosis. He has no significant tenderness. He has 2+ DP and PT pulses bilaterally. At this point I would recommend baby aspirin, Plavix, antihypertensives, and discharged home. He will follow-up with our office in 2 weeks time followed by cardiac rehab to assist with blood pressure, PVCs, and cardiac health. Would not recommend antiarrhythmic therapy at this time. If the patient's blood pressure is elevated during cardiac rehab we can increase his beta-hannah to assist with PVCs. 2. Hyperlipidemia: Continue statin based medications. Repeat lipid profile after cardiac rehab. 3. Patient may be discharged home. Follow up with Dr. Eaton. Code Visit Inpatient E&M: 15635 Subs Hosp L2
--- NOTE | 2018-09-08 10:00 | EKG12_ITS ---
Test Reason : Blood Pressure : / mmHG Vent. Rate : 099 BPM Atrial Rate : 099 BPM P-R Int : 142 ms QRS Dur : 094 ms QT Int : 338 ms P-R-T Axes : 069 -63 065 degrees QTc Int : 433 ms Sinus rhythm with occasional Premature ventricular complexes Left anterior fascicular block Abnormal ECG When compared with ECG of 07-SEP-2018 18:51, MANUAL COMPARISON REQUIRED, DATA IS UNCONFIRMED Confirmed by KAYLA ANTONIO, LEE ([id number]), editor managing director JERAMIE REAL ([id number] on 09/10/2018 2:18:41 PM Referred By: Kike Eaton Confirmed By:LEE GARZA MD
--- OUTSIDE RECORDS SUMMARY | 2018-12-09 12:48 | XMS RPT_ITS ---
:1940 Author Organization OHIP Support Name Relationship Address Phone MORGAN, PAT Unavailable [address] + [place] [address] R Unavailable Unavailable Unavailable BROWN, PAT Unavailable [phone] [place] [address] R Unavailable Unavailable Unavailable BROWN, PAT Unavailable [phone] [place] [address] R Unavailable Unavailable Unavailable BROWN, PAT Unavailable [phone] [place] [address] R Unavailable Unavailable Unavailable BROWN, PAT Unavailable [phone] [place] [address] R Unavailable Unavailable Unavailable BROWN, PAT Unavailable [phone] [place] [address] R Unavailable Unavailable Unavailable BROWN, PAT Unavailable [phone] [place] [address] R Unavailable Unavailable Unavailable BROWN, PAT Unavailable [phone] [place] [address] R Unavailable Unavailable Unavailable BROWN, PAT Unavailable [phone] [place] [address] R Unavailable Unavailable Unavailable BROWN, PAT Unavailable [phone] [place] [address] R Unavailable Unavailable Unavailable BROWN, PAT Unavailable [phone] [place] [address] R Unavailable Unavailable Unavailable BROWN, PAT Unavailable [phone] [place] [address] R Unavailable Unavailable Unavailable BROWN, PAT Unavailable [phone] [place] [address] R Unavailable Unavailable Unavailable BROWN, PAT Unavailable [phone] [place] [address] R Unavailable Unavailable Unavailable BROWN, PAT Unavailable [phone] [place] [address] R Unavailable Unavailable Unavailable BROWN, PAT Unavailable [address] + [place] [address] R Unavailable Unavailable Unavailable BROWN, PAT Unavailable [address] + [place] [address] R Unavailable Unavailable Unavailable BROWN, PAT Unavailable [address] + [place] [address] R Unavailable Unavailable Unavailable BROWN, PAT Unavailable [address] + [place] [address] R Unavailable Unavailable Unavailable BROWN, PAT Unavailable [address] + [place] [address] R Unavailable Unavailable Unavailable BROWN, PAT Unavailable [address] + [place] [address] R Unavailable Unavailable Unavailable BROWN, PAT Unavailable [address] + [place] [address] R Unavailable Unavailable Unavailable BROWN, PAT Unavailable [address] + [place] [address] R Unavailable Unavailable Unavailable BROWN, PAT Unavailable [address] + [place] [address] R Unavailable Unavailable Unavailable BROWN, PAT Unavailable [address] + [place] [address] R Unavailable Unavailable Unavailable BROWN, PAT Unavailable [address] + [place] [address] R Unavailable Unavailable Unavailable BROWN, PAT Unavailable [address] + [place] [address] R Unavailable Unavailable Unavailable BROWN, PAT Unavailable [address] + [place] [address] R Unavailable Unavailable Unavailable BROWN, PAT Unavailable [address] + [place] [address] R Unavailable Unavailable Unavailable BROWN, PAT Unavailable [address] + [place] [address] R Unavailable Unavailable Unavailable BROWN, PAT Unavailable [address] + [place] [address] R Unavailable Unavailable Unavailable BROWN, PAT Unavailable [address] + [place] [address] R Unavailable Unavailable Unavailable BROWN, PAT Unavailable [address] + [place] [address] R Unavailable Unavailable Unavailable BROWN, PAT Unavailable [phone] [place] [address] R Unavailable Unavailable Unavailable BROWN, PAT Unavailable [phone] [place] [address] R Unavailable Unavailable Unavailable BROWN, PAT Unavailable [phone] [place] [address] R Unavailable Unavailable Unavailable BROWN, PAT Unavailable [phone] [place] [address] R Unavailable Unavailable Unavailable BROWN, PAT Unavailable [phone] [place] [address] R Unavailable Unavailable Unavailable BROWN, PAT Unavailable [phone] [place] [address] R Unavailable Unavailable Unavailable BROWN, PAT Unavailable [phone] [place] [address] R Unavailable Unavailable Unavailable BROWN, PAT Unavailable [phone] [place] [address] R Unavailable Unavailable Unavailable Care Team Providers Name Role Phone Kike Eaton Attending Unavailable Oleghe, Efewongbe Referring Unavailable Kike Eaton Attending Unavailable Kike Eaton Referring Unavailable Oleghe, Efewongbe Primary Care Unavailable Kike Eaton Attending Unavailable Kike Eaton Referring Unavailable Oleghe, Efewongbe Primary Care Unavailable Valdemar Germain Consulting Unavailable Stephanie Lydia Consulting Unavailable Jese Osorio Attending Unavailable Stephanie Lydia Referring Unavailable Kike Eaton Attending Unavailable Oleghe, [...] Eaton Referring Unavailable Kike Eaton Attending Unavailable Kike Eaton Referring Unavailable Kike Eaton Attending Unavailable Kike Eaton Referring Unavailable Oleghe, Efewongbe Primary Care Unavailable Kike Eaton Attending Unavailable Kike Eaton Referring Unavailable Oleghe, Efewongbe Primary Care Unavailable Duane Cummings Attending Unavailable Oleghe, Efewongbe Attending Unavailable Oleghe, [...] Oleghe, Efewongbe Primary Care Unavailable Huber Solano INSTRUCTOR PHYSICAL EDUCATION-C Attending Unavailable Oleghe, Efewongbe Referring Unavailable Oleghe, Efewongbe Primary Care Unavailable Oleghe, Efewongbe Attending Unavailable Oleghe, Efewongbe Referring Unavailable Oleghe, Efewongbe Primary Care Unavailable Oleghe, Efewongbe Attending Unavailable Oleghe, Efewongbe Referring Unavailable Oleghe, Efewongbe Primary Care Unavailable Huber Solano INSTRUCTOR PHYSICAL EDUCATION-C Attending Unavailable Oleghe, Efewongbe Referring Unavailable Oleghe, Efewongbe Primary Care Unavailable Huber Solano INSTRUCTOR PHYSICAL EDUCATION-C Attending Unavailable Oleghe, Efewongbe Referring Unavailable Oleghe, [...] Unavailable Oleghe, Efewongbe Referring Unavailable Huber Solano INSTRUCTOR PHYSICAL EDUCATION-C Attending Unavailable Oleghe, Efewongbe Referring Unavailable Duane Cummings Attending Unavailable Oleghe, Efewongbe Referring Unavailable Lydia Brown Attending Unavailable Stephanie, Lydia Referring Unavailable Oleghe, Efewongbe Primary Care Unavailable Duane Cummings Attending Unavailable Duane Cummings Referring Unavailable Oleghe, Efewongbe Primary Care Unavailable Valdemar Germain Attending Unavailable Valdemar Germain Referring Unavailable Oleghe, Efewongbe Primary Care Unavailable Lydia Brown Attending Unavailable Brown, Lydia Referring Unavailable Oleghe, Efewongbe Primary Care Unavailable PROBLEMS PROBLEMS DATE TYPE CONDITION / CODE ATTENDING STATUS SOURCE 10/13/2018 Unknown I49.3 - Ventricular Kike Eaton Active [facility] depolarization / Hospital I49.3(ICD-10) Repository 10/13/2018 Unknown Z95.5 - Presence of Kike Eaton Active [facility] coronary angioplasty Community implant and graft / Hospital Z95.5(ICD-10) Repository 10/13/2018 Unknown I10 - Essential Kike Eaton Active [facility] (primary) [facility] hypertension / Hospital I10(ICD-10) Repository 10/13/2018 Unknown E78.5 - Kike Eaton Active [facility] Hyperlipidemia, Community unspecified / Hospital E78.5(ICD-10) Repository 10/13/2018 Unknown I25.10 - Kike Eaton Active [facility] Atherosclerotic heart [facility] disease of [facility] coronary artery Repository without angina pectoris / I25.10(ICD-10) 09/30/2018 Unknown R07.9 - Chest pain, Kike Eaton Active [facility] unspecified / Community R07.9(ICD-10) Hospital Repository 09/01/2018 Unknown R00.2 - Palpitations Kike Eaton Active [facility] / R00.2(ICD-10) Community Hospital Repository 09/01/2018 Unknown E03.9 - Kike Eaton Active [facility] Hypothyroidism, Community unspecified / Hospital E03.9(ICD-10) Repository 08/30/2018 Unknown G47.33 - Obstructive Stephanie Active [facility] sleep apnea (adult) [facility] (pediatric) / Hospital G47.33(ICD-10) Repository 10/05/2018 Unknown Z12.11 - Encounter Cebul, Duane Active [facility] for screening for Community malignant neoplasm of Hospital colon / Repository Z12.11(ICD-10) 10/05/2018 Unknown K64.9 - Unspecified CebulDuane Active [facility] hemorrhoids / Community K64.9(ICD-10) Hospital Repository 10/05/2018 Unknown K57.30 - CebulDuane Active [facility] Diverticulosis of Community large intestine Hospital without perforation Repository or abscess without bleeding / K57.30(ICD-10) 10/05/2018 Unknown Z98.0 - Intestinal CebulDuane Active [facility] bypass and Community anastomosis status / Hospital Z98.0(ICD-10) Repository 09/03/2018 Unknown R06.09 - Other forms DevonJese travis Active [facility] of dyspnea / Community R06.09(ICD-10) Hospital Repository 08/06/2018 Unknown Z12.10 - Encounter CeDuane ly Active [facility] for screening for Community malignant neoplasm of Hospital intestinal tract, Repository unspecified / Z12.10(ICD-10) 08/04/2018 Unknown Z76.89 - Persons Stephanie, Active [facility] encountering health [facility] services in other Hospital specified Repository circumstances / Z76.89(ICD-10) 08/04/2018 Unknown Z23 - Encounter for Stephanie Active [facility] immunization / [facility] Z23(ICD-10) Hospital Repository 07/20/2018 Unknown R53.81 - Other Kike Eaton Active [facility] malaise / Community R53.81(ICD-10) Hospital Repository 07/20/2018 Unknown R53.83 - Other Kike Eaton Active [facility] fatigue / Community R53.83(ICD-10) Hospital Repository 07/20/2018 Unknown R40.0 - Somnolence / Kike Eaton Active [facility] R40.0(ICD-10) Community Hospital Repository 07/20/2018 Unknown G47.10 - Hypersomnia, Kike Eaton Active [facility] unspecified / Community G47.10(ICD-10) Hospital Repository 04/20/2018 Unknown D64.9 - Anemia, Renetta, Active [facility] unspecified / E[place] Community D64.9(ICD-10) Hospital Repository PROCEDURES PROCEDURES No Procedure Records FoundRESULTS RESULTS CR - HISTORY AND Observed: 10/06/2018 Status: F Source: [place] PHYSICAL 8:46 AM [facility] REPOSITORY [facility] Cardiac Rehab [address] [place] [address] CR - History AND Physical MR#: [id number] Acct: [id number] Name: IMANI MINER Rep #: [id number] : 1940 77 From: He Cleary WIG COMBER, CLERK TELEGRAPH SERVICE, BS PCP: Tania Jackson MD DOS: 10/05/18 [...] Yes - sleep study done here at [facility] STOP Results: Positive Advanced Directives - Advanced Directives Power of Chair Spring Assembler: Yes Living Will: Yes Advance Directives on [...] Hypothyroidism (Chronic) E03.9 Atherosclerotic heart disease of [place] coronary artery without angina pectoris (Chronic) I25.10 [place] (2.5 X 38 Promus Synergy) to mid LAD; [place] (2.5 X 12 Promus Synergy) to Diagonal per Dr. Eaton @ [facility] 09/07/2018 Malaise and fatigue (Acute) R53.81, R53.83 [...] Synergy) to Diagonal per Dr. 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 Dunn @ [facility] eye lesion removal H/O hemorrhoidectomy Z98.890 1989 [...] children live nearby?: Yes - 2 in [facility] - Safety Do you feel safe in your surroundings?: Yes - Assistance Do you need any assistance at home?: none Review of Systems - Review of Systems Hints: Right click = Denies ([place]). Left click = Reports ([place]) Review of Present Symptoms: Reports: Shortness of [...] implant in August 2018. Patient is very [place] and wears bilateral hearing aids. He was [...] RCP, BS> Date He Cleary CRT, RCP, HLEGA Outcome assessment reviewed. Exercise plan approved as [...] CARDIOLOGY VISIT Observed: 09/24/2018 Status: F Source: [place] REPORT 2:10 PM [facility] REPOSITORY [facility] [address] [place] [address] OFFICE VISIT Date of Service: 09/20/18 MR#: [id number] Acct: [id number] Name: IMANI MINER Rep #: [id number] : 1940 Provider: Candice Galvez Age/Sex: 77/M Location: [facility] Status: Signed HPI HPI Chief Complaint: [...] Intake Visit Reasons: 2 WK S/P PCI Relay Shop Supervisor Required: No Accompanied by: Son Is patient [...] (Chronic) Hypothyroidism (Chronic) Atherosclerotic heart disease of [place] coronary artery without angina pectoris (Chronic) Malaise [...] affect Assessment AND Plan 1. Atherosclerosis of [place] coronary artery of [place] heart without angina pectoris I25.10 [place] (2.5 X 38 Promus Synergy) to mid LAD; [place] (2.5 X 12 Promus Synergy) to Diagonal per Dr. Eaton @ [facility] 09/07/2018 Plan Pt symptoms have improved. Reviewed [...] Code Off vis,est,level 4 Diagnoses Atherosclerosis of [place] coronary artery of [place] heart without angina pectoris I25.10 [place] vs. transplanted heart: [place] heart Pure hypercholesterolemia E78.00; E78.0 Hyperlipidemia type: pure hypercholesterolemia Essential hypertension I10 Hypertension type: essential hypertension Premature ventricular contractions I49.3 Coding Level of Care Code Off vis,est,level 4 Diagnoses Atherosclerosis of [place] coronary artery of [place] heart without angina pectoris I25.10 [place] vs. transplanted heart: [place] heart Pure hypercholesterolemia E78.00; E78.0 Hyperlipidemia type: [...] EMERGENCY DEPARTMENT Observed: 09/14/2018 Status: F Source: [place] SUMMARY 7:56 AM [facility] Medical Records Department [address] [place] [address] Emergency Department Summary 09/11/18 0302 MR#: [id number] Acct: [id number] Name: IMANI MINER Rep #: [id number] : 1940 77 From: Cedric Fonseac MD PCP: Tania Jackson MD Status: DEP [...] arterial study This note was generated with Urban Interactionsation software. It may contain incorrect words, spelling, [...] inguinal hematoma This note was generated with DinnDinn dictation software. It may contain incorrect words, [...] your Primary Care Provider. Call [facility] ([phone]) or report to the closest Emergency Room. Call 911 if necessary. 09/14/18 0756 <Electronically signed by Cedric Fonseca MD> Date Cedric Fonseca MD 09/13/18 0703<Electronically signed by Kike Haas DO> Cosigner Signature (If Indicated): Date Kike Haas DO CC: Tania Jackson MD ARTERIAL DUPLEX US, Observed: 09/13/2018 Status: F Source: [facility] 6:56 AM [facility] REPOSITORY [facility] Cardiovascular Services [address] [place] [address] Art Duplex US Unilat Lower Ext 09/11/18 0837 MR#: [id number] Acct: [id number] Name: IMANI MINER Rep #: [id number] : 1940 77 From: Duane Cummings MD Attending Dr: Status: DEP ER Ordering Dr: Cedric Fonseca MD Date: 09/11/18 Location: ED Sex: M C Admitted: Reason For Study: PSEUDOANEURYSM Right Velocities RT UNIFORMER measures .9 x .9 cm with a [...] MD Date Dictated: 09/11/1837 Date Transcribed: 09/13/18655 Money Manager: Signed 12 LEAD ELECTROCARDIOGRAM Observed: 09/10/2018 Status: F Source: [place] 2:23 PM [facility] REPOSITORY [facility] Cardiovascular Services [address] [place] [address] 12 Lead EKG 09/07/18 1851 MR#: [id number] Acct: [id number] Name: IMANI MINER Rep #: [id number] : 1940 77 From: Celso Thomas MD Attending Dr: Kike Eaton MD Status: [facility] Ordering Dr: Kike Eaton MD Date: 09/07/18 Location: [facility] Sex: M C Admitted: Test Reason [...] found Confirmed by KAYLA ANTONIO, CELSO ([id number]), food expeditor JERAMIE REAL (56) on 09/10/2018 2:22:45 PM Referred By: Kike Eaton Confirmed By:CELSO THOMAS MD 09/10/18 1422 Date Celso Thomas MD CC: Kike Eaton MD; Tania Jackson MD Signed 12 LEAD ELECTROCARDIOGRAM Observed: 09/10/2018 Status: F Source: [place] 2:19 PM ON LICENSE OF [facility] REPOSITORY [facility] Cardiovascular Services [address] [place] [address] 12 Lead EKG 09/08/18 0537 MR#: [id number] Acct: [id number] Name: IMANI MINER Rep #: [id number] : 1940 77 From: Celso Thomas MD Attending Dr: Kike Eaton MD Status: DEP [facility] Ordering Dr: Kike Eaton MD Date: 09/08/18 Location: [facility] Sex: M C Admitted: Test Reason [...] UNCONFIRMED Confirmed by KAYLA ANTONIO, CELSO ([id number]), food expeditor JERAMIE REAL (56) on 09/10/2018 2:18:41 PM Referred By: Kike Eaton Confirmed By:CELSO THOMAS MD 09/10/18 1418 Date Celso Thomas MD CC: Kike Eaton MD; Tania Jackson MD Signed ARTERIAL DUPLEX US, Observed: 09/08/2018 Status: F Source: [place] LIMITED 9:05 PM ON LICENSE OF [facility] REPOSITORY [facility] Cardiovascular Services [address] [place] [address] Art Duplex US Unilat Lower Ext 09/08/18 0804 MR#: [id number] Acct: [id number] Name: IMANI MINER Rep #: [id number] : 1940 77 From: Duane Cummings MD Attending Dr: Kike Eaton MD Status: [facility] Ordering Dr: Kike Eaton MD Date: 09/08/18 Location: [facility] Sex: M C Admitted: Reason For Study: RT groin pain/ecchymosis Right Velocities Left Velocities RT UNIFORMER - 1.1 x 1.0 cm with a [...] MD Date Dictated: 09/08/18803 Date Transcribed: 09/08/182103 Money Manager: Signed DISCHARGE INSTRUCTION Observed: 09/08/2018 Status: F Source: [place] 8:43 AM [facility] REPOSITORY [facility] Medical Records Department [address] [place] [address] Instructions for Home/Discharge Instructions 09/08/18 0838 MR#: [id number] Acct: [id number] Name: IMANI MINER Rep #: [id number] : 1940 77 From: Candice WELLINGTON PCP: [...] patient's physical, psychological, and social functioning. Health complex care nurse practitioner work in cardiac rehabilitation programs and assist you with getting the treatments you need to get stronger and healthier - like exercise, healthy eating habits, and medications. Cardiac rehabilitation has been show to help people with heart problems live longer and have better life enjoyment than people who do not go to cardiac rehabilitation. Please contact the Cardiac Rehabilitation Program at [facility] at in two weeks if you have not heard from them. 09/08/18 0843 <Electronically signed by Candice WELLINGTON> Date Candice WELLINGTON CC: Tania Jackson MD CBC-COMPLETE BLOOD CNT Collected: 09/08/2018 Status: F Source: [place] NO DIFF 4:25 AM [facility] REPOSITORY TYPE CODE TESTS RESULT OUT OF [...] MPV 9.1 Performed By: #### L100.0500 #### [facility] [address] [place], [address] BASIC METABOLIC Collected: 09/08/2018 Status: F Source: [place] PROFILE (BMP) 4:25 AM [facility] REPOSITORY TYPE CODE TESTS RESULT OUT OF [...] 10 Performed By: #### L500.2500, L500.4100 #### [facility] [address] [place], [address] LIPID PROFILE Collected: 09/08/2018 Status: F Source: [place] 4:25 AM [facility] REPOSITORY TYPE CODE TESTS RESULT OUT OF [...] 33 Performed By: #### L500.2500, L500.4100 #### [facility] [address] [place], [address] ACT ACTIVATED CLOTTING Collected: 09/07/2018 Status: F Source: [place] TIME 11:30 AM [facility] REPOSITORY TYPE CODE TESTS RESULT OUT OF RANGE REFERENCE UNITS LAB L9100.0100 74-137 sec High ACTk CLOT 169 TIME Performed By: #### L9100.0100 #### [facility] Point of Care [address] [place] [address] CARDIOLOGY VISIT Observed: 09/06/2018 Status: F Source: [place] REPORT 11:26 AM [facility] REPOSITORY [facility] [address] [place] [address] OFFICE VISIT Date of Service: 09/06/18 MR#: [id number] Acct: [id number] Name: IMANI MINER Rep #: [id number] : 1940 Provider: Kike Eaton MD Age/Sex: 77/M Location: [facility] Status: Signed HPI [facility] Chief Complaint: 3 month f/u Details: [...] statin based medicines. His father of an [place] at age 60, and his mother had [...] Reasons: Update H AND P per PRETTY Relay Shop Supervisor Required: No Is patient in pain?: No [...] (Chronic) Hypothyroidism (Chronic) Atherosclerotic heart disease of [place] coronary artery without angina pectoris (Chronic) Malaise [...] 09/03/2018 Status: F Source: [place] 1:06 PM [facility] REPOSITORY Order Comment: Comments: for heart cath [...] Lymph 0.85 Performed By: #### L100.0100 #### [facility] [address] [place], [address] CHEST PA AND LATERAL Observed: 09/03/2018 Status: F Source: [place] 1:03 PM [facility] REPOSITORY [facility] Imaging Services [address] [place] [address] Chest PA and Lateral MR#: [id number] Acct: [id number] Name: IMANI MINER Rep #: [id number] : 1940 M 77 From: Lupillo Smith MD PCP: Tania [place] MD Status: REG CLI Study: Chest PA and Lateral Date of Exam: 09/03/18 Exam# [id number] Ordering Dr: Kike Eaton MD STUDY: X-RAY [...] CC: Kike Eaton MD; Tania [place] MD Money Manager: Signed BASIC METABOLIC Collected: 09/01/2018 Status: F Source: [place] PROFILE ([facility]) 10:25 AM [facility] REPOSITORY TYPE CODE TESTS RESULT OUT OF [...] By: #### L500.2500, L501.5200, L501.9310, L501.9520 #### [facility] [address] [place], [place], [address] MAGNESIUM Collected: 09/01/2018 Status: F Source: [place] 10:25 AM [facility] REPOSITORY TYPE CODE TESTS RESULT OUT OF RANGE REFERENCE UNITS LAB L501.5200 1.6-2.6 mg/dL Normal MG 2.1 Performed By: #### L500.2500, L501.5200, L501.9310, L501.9520 #### [facility] [address] [place], [address] T4 TOTAL, THYROXIN Collected: 09/01/2018 Status: F Source: [place] 10:25 AM [facility] REPOSITORY TYPE CODE TESTS RESULT OUT OF REFERENCE UNITS RANGE LAB L501.9310 4.5-12.1 ug/dL T4 High THYROXIN 12.3 Performed By: #### L500.2500, L501.5200, L501.9310, L501.9520 #### [facility] [address] [place], [address] THYROID STIM HORMONE Collected: 09/01/2018 Status: F Source: [place] (TSH) 10:25 AM [facility] REPOSITORY TYPE CODE TESTS RESULT OUT OF RANGE REFERENCE UNITS LAB L501.9520 0.358-3.74 uIU/mL Normal TSH 0.78 Performed By: #### L500.2500, L501.5200, L501.9310, L501.9520 #### [facility] [address] [place], [address] 12 LEAD EKG PERFORMED Observed: 09/01/2018 Status: F Source: [place] BY [facility] 9:55 AM [facility] REPOSITORY [facility] [address] [facility] [address] 12 Lead EKG performed by [facility] 09/01/18 0955 MR#: [id number] Acct: [id number] Name: IMANI MINER Rep #: [id number] : 1940 77 From: Kike Eaton MD Attending Dr: Kike Eaton MD Status: DEP AMB Ordering Dr: Kike Eaton MD Date: 09/01/18 Location: [facility] Sex: M C Admitted: [facility]/12 Lead EKG performed by [facility] ECG Report Interpretation Sinus Rhythm - frequent ectopic ventricular beat s # VECs = 2-Left axis -anterior fascicular block. ABNORMAL Electronically signed on 09/03/2018 at 15:05 by Kike Eaton Software Version [id number] 09/03/18 5525 Date Kike Eaton MD CC: Tania Jackson MD Date Dictated: 09/01/18954 Date Transcribed: 09/01/18954 Money Manager: Signed ORB SELLA POST Observed: 08/26/2018 Status: F Source: [place] FOSSA EAR W/O 1:28 PM [facility] REPOSITORY [facility] Imaging Services [address] [place] [address] Orb Sella Post Fossa Ear w/o MR#: [id number] Acct: [id number] Name: IMANI MINER Rep #: [id number] : 1940 M 77 From: Luca Arteaga MD PCP: Tania Jackson MD Status: REG CLI Study: Orb Sella Post Fossa Ear w/o Date of Exam: 08/26/18 Exam# [id number] Ordering Dr: Valdemar Germain MD ADDENDUM by [...] CC: Pastor Germain MD; Tania Jackson MD Money Manager: Signed OPERATIVE REPORT - Observed: 08/24/2018 Status: F Source: [place] ENDOSCOPY 8:31 AM [facility] REPOSITORY [facility] Medical Records Department [address] [place] [address] Operative Report - Endoscopy MR#: [id number] Acct: [id number] Name: IMANI MINER Rep #: [id number] : 1940 77 From: Duane Cummings MD PCP: Tania Jackson MD Status: REG [facility] Patient Name: Imani Miner Procedure Date: 08/24/2018 [...] screening purposes. Procedure Code(s): --- Professional --- 37260, Colonoscopy, flexible; diagnostic, including collection of specimen(s) by brushing or washing, when performed (separate procedure) Diagnosis Code(s): --- Professional --- Z12.11, Encounter for screening for malignant neoplasm of colon K64.9, Unspecified hemorrhoids Z98.0, Intestinal bypass and anastomosis status K57.30, Diverticulosis of large intestine without perforation or abscess without bleeding N40.0, Benign prostatic hyperplasia without lower urinary tract symptoms CPT copyright 2017 [employer]. All rights reserved. The codes documented in this report are preliminary and upon newcomer hostess review may be revised to meet current compliance requirements. Duane Cummings MD 08/24/2018 8:30:35 AM This report has been signed electronically. Number of Addenda: 0 Note Initiated On: 08/24/2018 8:09 AM 08/24/18829 Date Duane Cummings MD Cosigner Signature: Date (if indicated) CC: Tania Jackson MD; Duane Cummings MD Date Dictated: 08/24/18808 Date Transcribed: Money Manager: JOSE Signed PULMONARY FUNCTION Observed: 08/21/2018 Status: F Source: [place] REPORT COMP 6:44 AM [facility] REPOSITORY [facility] Pulmonary Services/Neurology [address] [place] [address] MR#: [id number] Acct: [id number] Name: IMANI MINER Rep #: [id number] : 1940 77 From: Jese Osorio MD Referring Dr: Lydia Brown INSTRUCTOR PHYSICAL EDUCATION Status: REG CLI Ordering Dr: Date: Location: [facility] Sex: M C COMPLETE PULMONARY FUNCTION TEST INTERPRETATION Brief HPI: Patient is a 77 year old male, currently under the care of Lydia Brown, who presents to [facility] for complete pulmonary function tests secondary to [...] Dictated: 08/20/18 1411 Date Transcribed: 08/20/18 141 Money Manager: LISA Signed INTERNAL MEDICINE Observed: 08/07/2018 Status: F Source: [place] OFFICE VISIT 8:18 AM [facility] [place] [facility] [address] [place] [address] [place] [address] OFFICE VISIT Date of Service: 08/03/18 MR#: [id number] Acct: [id number] Name: IMANI MINER Asha Rep #: [id number] : 1940 Provider: Huber Solano NP Age/Sex: 77/M Location: [facility] Status: Signed Intake Vital Signs08/03/18 Height [...] (Chronic) Hypothyroidism (Chronic) Atherosclerotic heart disease of [place] coronary artery without angina pectoris (Chronic) Malaise [...] oriented x3 Limitations: mental status not altered [facility] Head: normal to inspection Ears: hearing [...] viral at this time. Patient encouraged to supervisor picking crew Flonase qarn-ggr-dzjjtsf and use 2 sprays in each nostril once a day for his postnasal drip and may continue with uwmb-zsd-npaqgkj cough syrup that does not contain Sudafed [...] medical care. This note was generated with DinnDinn dictation software. It may contain incorrect words, [...] VISIT REPORT Observed: 08/06/2018 Status: F Source: [place] 2:39 PM [facility] REPOSITORY [facility] [address] [place] [address] [address] [place] [address] OFFICE VISIT Date of Service: 08/06/18 MR#: [id number] Acct: [id number] Name: IMANI MINER Rep #: [id number] : 1940 Provider: Duane Cummings MD Age/Sex: 77/M Location: [facility] Status: Signed Intake Vital Signs08/06/18 Body Mass Index (BMI) 28.5 08/06/18 Height 5 ft 8 in 08/06/18 Weight: 185 lb 08/06/18 Body Mass Index (BMI) 28.1 Intake Visit Reasons: BRBPR, change in bowel habits Chief Complaint: 3 month f/u Relay Shop Supervisor Required: No Is patient in pain?: No [...] (Chronic) Hypothyroidism (Chronic) Atherosclerotic heart disease of [place] coronary artery without angina pectoris (Chronic) Malaise [...] VISIT REPORT Observed: 08/05/2018 Status: F Source: [place] 4:55 PM [facility] REPOSITORY [facility] [address] [place] [address] OFFICE VISIT Date of Service: 08/04/18 MR#: [id number] Acct: [id number] Name: IMANI MINER Rep #: [id number] : 1940 Provider: Lydia Brown Age/Sex: 77/M Location: [facility] Status: Signed Assessment AND Plan 1. EH [...] body aches. 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 [...] CPAP titration study was recommended. 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 Never a smoking, on symbicort for ??? Intake Vital Signs11/14/18 Height 5 ft 8 in 08/04/18 Weight: 187 lb 8 oz Intake Visit Reasons: Sleep problems Relay Shop Supervisor Required: No Accompanied by: Allergies amoxicillin [From [...] (Chronic) Hypothyroidism (Chronic) Atherosclerotic heart disease of [place] coronary artery without angina pectoris (Chronic) Malaise [...] Admin Location Lot Number Expiration Date NDC Drawer In Hand 0.5 mL IM Left Deltoid [id number] 09/28/19 [id number] [employer] VIS Given Date VIS Publication Date 08/04/18 04/27/15 Eligibility Eligibility Date Coding Level of Care Code Off vis,new,level 4 Diagnoses EH (obstructive sleep apnea) G47.33 Restless legs syndrome (RLS) G25.81 Dyspnea on exertion R06.09 08/05/18 1655 <Electronically signed by Lydia Brown INSTRUCTOR PHYSICAL EDUCATION-C> Date Lydia Brown INSTRUCTOR PHYSICAL EDUCATION-C Cosigner Signature: Date (if applicable) CC: Tania [facility] MD RENAL ARTERY DUPLEX Observed: 06/24/2018 Status: F Source: [facility] 6:26 PM [facility] REPOSITORY [facility] Cardiovascular Services [address] [place] [address] Renal Artery Duplex Ultrasound 06/24/18 0755 MR#: [id number] Acct: [id number] Name: IMANI MINER Rep #: [id number] : 1940 77 From: Duane Cummings MD Attending Dr: Kike Eaton MD Status: REG CLI Ordering Dr: Kike Eaton MD Date: 06/24/18 Location: [facility] Sex: M C Admitted: Reason For [...] Duane Cummings MD CC: Kike Eaton MD; aTnia Jackson MD Date Dictated: 06/24/18 075 Date Transcribed: 06/24/181824 Money Manager: Signed STRESS TEST ECHO W/O Observed: 06/24/2018 Status: F Source: [place] CONTRAST 3:05 PM [facility] REPOSITORY [facility] Cardiovascular Services [address] [place] [address] Stress Test Echo w/o Contrast MR#: [id number] Acct: [id number] Name: IMANI MINER Rep #: [id number] : 1940 77 From: Kike Eaton MD [...] Date Dictated: 06/24/18911 Date Transcribed: 06/24/18 150 Money Manager: Signed CARDIOLOGY VISIT Observed: 06/08/2018 Status: F Source: [place] REPORT 1:37 PM [facility] REPOSITORY [facility] [address] [place] [address]. [address] [place] [address] OFFICE VISIT Date of Service: 06/08/18 MR#: [id number] Acct: [id number] Name: IMANI MINER Rep #: [id number] : 1940 Provider: Kike Eaton MD Age/Sex: 77/M Location: [facility] Status: Signed HPI [facility] Chief Complaint: Dyspnea on exertion, fatigue, [...] statin based medicines. His father of an [place] at age 60, and his mother had [...] Intake Visit Reasons: HTN, PREV PFM 2013 Relay Shop Supervisor Required: No Accompanied by: Is patient in [...] tab 06/08/18 [History Confirmed 06/08/18] [facility] Medical History Nonrheumatic tricuspid (valve) insufficiency (Chronic) Hypothyroidism (Chronic) Atherosclerotic heart disease of [place] coronary artery without angina pectoris (Chronic) Malaise [...] (Has had headache for 4 days, right anglican and top of head. Severe fatigue); negative [...] AND Plan 1. 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 Dunn @ [facility] Plan 1. Coronary artery disease: The patient [...] vis,new,level 4 Diagnoses Atherosclerotic heart disease of [place] coronary artery without angina pectoris I25.10 Hyperlipidemia E78.5 Hypertension I10 Somnolence, daytime R40.0 Coding Level of Care Code Off vis,new,level 4 Diagnoses Atherosclerotic heart disease of [place] coronary artery without angina pectoris I25.10 Hyperlipidemia E78.5 Hypertension I10 Somnolence, daytime R40.0 06/08/18 1337 <Electronically signed by Kike Eaton MD> Date Kike Eaton MD Cosigner Signature: Date (if applicable) CC: Tania [facility] MD 12 LEAD EKG PERFORMED Observed: 06/08/2018 Status: F Source: [facility] BY [facility] 1:27 PM [facility] REPOSITORY [place] [address] [place] [address] 12 Lead EKG performed by [facility] 06/08/18 1326 MR#: [id number] Acct: [id number] Name: IMANI MINER Rep #: [id number] : 1940 77 From: Kike Eaton MD Attending Dr: Kike Eaton MD Status: DEP AMB Ordering Dr: Kike Eaton MD Date: 06/08/18 Location: [facility] Sex: M C Admitted: BMS/12 Lead EKG performed by [facility] ECG Report Interpretation Sinus Rhythm -Left axis -anterior fascicular block. ABNORMAL Electronically signed on 09/03/2018 at 15:03 by Kike Eaton Software Version 8610 09/03/18 1506 Date Kike Eaton MD CC: Tnaia Jackson MD Date Dictated: 06/08/18 1326 Date Transcribed: 06/08/18 1326 Money Manager: Signed INTERNAL MEDICINE Observed: 05/25/2018 Status: F Source: [place] OFFICE VISIT 8:49 AM [facility] [place] [facility] [address] [place] [address] OFFICE VISIT Date of Service: 05/21/18 MR#: [id number] Acct: [id number] Name: IMANI MINER Rep #: [id number] : 1940 Provider: Huber Solano NP Age/Sex: 77/M Location: [facility] Status: Signed Intake Vital Signs05/21/18 Height [...] cardiac etiology, seems musculoskeletal and recommended take hodz-ras-zemqwnn analgesics as this provides moderate relief of [...] F Source: [facility] OFFICE VISIT 10:46 AM [facility] [place] [facility] [address] [place] [address] OFFICE VISIT Date of Service: 04/27/18 MR#: [id number] Acct: [id number] Name: IMANI MINER Rep #: [id number] : 1940 Provider: Huber Solano NP Age/Sex: 77/M Location: [facility].RANGER Status: Signed Intake Vital Signs04/27/18 Height 5 [...] BID #180 tab 04/27/18 [Rx Confirmed 04/27/18] [facility] Medical History Arthritis (Acute) Hay [...] oriented x3 Limitations: mental status not altered [facility] Head: normal to inspection, normocephalic, atraumatic [...] F Source: [facility] OFFICE VISIT 1:32 PM [facility] [place] [facility] [place] [address] OFFICE VISIT Date of Service: 04/20/18 MR#: [id number] Acct: [id number] Name: IMANI MINER Rep #: [id number] : 1940 Provider: Tania [facility] MD Age/Sex: 77/M Location: [facility] Status: Signed Intake Vital Signs04/20/18 Height [...] acute distress Orientation: alert, awake, oriented x3 [facility] Head: atraumatic, normocephalic Ears: hearing grossly normal [...] with results. This note was generated with Urban Interactionsation software. It may contain incorrect words, spelling, [...] 04/20/2018 Status: F Source: [facility] 12:41 PM [facility] REPOSITORY TYPE CODE TESTS RESULT OUT OF [...] L500.4050, L501.9520, L503.6075, L503.6150, L503.6550, L506.0400 #### [facility] [address] [place], [address] COMPREHENSIVE METABOLIC Collected: 04/20/2018 Status: F Source: [facility] 12:41 PM [facility] REPOSITORY TYPE CODE TESTS RESULT OUT OF [...] L500.4050, L501.9520, L503.6075, L503.6150, L503.6550, L506.0400 #### [facility] [address] [facility] [place], [place], [address] THYROID STIM HORMONE Collected: 04/20/2018 Status: F Source: [place] (TSH) 12:41 PM [facility] REPOSITORY TYPE CODE TESTS RESULT OUT OF RANGE REFERENCE UNITS LAB L501.9520 0.358-3.74 uIU/mL Normal TSH 0.47 Performed By: #### L100.0100, L500.4050, L501.9520, L503.6075, L503.6150, L503.6550, L506.0400 #### [facility] [address] [facility] [place], [place], [address] IRON BINDING Collected: 04/20/2018 Status: F Source: [facility] 12:41 PM [facility] REPOSITORY TYPE CODE TESTS RESULT OUT OF RANGE REFERENCE UNITS LAB L503.6075 250-450 ug/dL Normal TIBC 394 Performed By: #### L100.0100, L500.4050, L501.9520, L503.6075, L503.6150, L503.6550, L506.0400 #### [facility] [address] [place], [address] IRON Collected: 04/20/2018 Status: F Source: [place] 12:41 PM [facility] REPOSITORY TYPE CODE TESTS RESULT OUT OF RANGE REFERENCE UNITS LAB L503.6150 65-175 ug/dL Normal IRON 130 Performed By: #### L100.0100, L500.4050, L501.9520, L503.6075, L503.6150, L503.6550, L506.0400 #### [facility] [address] [place], [place], [address] FERRITIN Collected: 04/20/2018 Status: F Source: [place] 12:41 PM [facility] REPOSITORY TYPE CODE TESTS RESULT OUT OF RANGE REFERENCE UNITS LAB L503.6550 26-388 ng/mL Normal FERRITIN 74 Performed By: #### L100.0100, L500.4050, L501.9520, L503.6075, L503.6150, L503.6550, L506.0400 #### [facility] [address] [place], [place], [address] T4 FREE DIRECT Collected: 04/20/2018 Status: F Source: [place] 12:41 PM [facility] REPOSITORY TYPE CODE TESTS RESULT OUT OF RANGE REFERENCE UNITS LAB L506.0400 0.76-1.46 ng/dL Normal T4 FREE 1.30 DIRECT Performed By: #### L100.0100, L500.4050, L501.9520, L503.6075, L503.6150, L503.6550, L506.0400 #### [facility] [address] [place], [address] INTERNAL MEDICINE Observed: 03/30/2018 Status: F Source: [facility] OFFICE VISIT 4:57 PM [facility] REPOSITORY [facility] [address] [place] [address] OFFICE VISIT Date of Service: 03/30/18 MR#: [id number] Acct: [id number] Name: IMANI MINER Rep #: [id number] : 1940 Provider: Huber Solano NP Age/Sex: 77/M Location: [facility] Status: Signed Intake Vital Signs03/30/18 Height 5 [...] 2.5 mg daily. Also encouraged patient to supervisor picking crew compression stockings, 10-15 mmHg. Patient educated to [...] medical care. This note was generated with Urban Interactions[employer] software. It may contain incorrect words, spelling, [...] F Source: [facility] OFFICE VISIT 1:42 PM [facility] [place] [facility] [address] [place] [address] [place] [address] OFFICE VISIT Date of Service: 02/05/18 MR#: [id number] Acct: [id number] Name: IMANI MINER Rep #: [id number] : 1940 Provider: Tania [facility] MD Age/Sex: 77/M Location: [facility] Status: Signed Intake Vital Signs02/05/18 Height [...] extremity rash. He was seen by his master carpenter recently and said rash was possibly due [...] acute distress Orientation: alert, awake, oriented x3 [facility] Head: atraumatic, normocephalic Ears: hearing grossly normal [...] grass and was seen recently by his electrical equipment tester where he got a shot. He [...] F Source: [facility] OFFICE VISIT 4:27 PM [facility] [place] [facility] [address] [place] [address] [place] [address] OFFICE VISIT Date of Service: 02/02/18 MR#: [id number] Acct: [id number] Name: IMANI MINER Rep #: [id number] : 1940 Provider: Tania [facility] MD Age/Sex: 77/M Location: [facility] Status: Signed Intake Vital Signs02/02/18 Height [...] Aller/Imm Allergy/Immunologic: No wheezing or itchy eyes Lc/Lymp Hematologic/Lymphatic: No easy bleeding, easy bruising or enlarged lymph nodes Exam Const General: cooperative, no acute distress Orientation: alert, awake, oriented x3 [facility] Head: atraumatic, normocephalic Ears: hearing grossly normal [...] next visit. This note was generated with Urban Interactionsation software. It may contain incorrect words, spelling, [...] Status: F Source: [facility] REPORT 10:51 AM [facility] REPOSITORY [facility] [address] [place] [address] OFFICE VISIT Date of Service: 01/04/18 MR#: [id number] Acct: [id number] Name: IMANI MINER Rep #: [id number] : 1940 Provider: Jaden WELLINGTON Age/Sex: 77/M Location: [facility] Status: Signed Intake Vital Signs01/04/18 Height 5 [...] the above. This note was generated with DinnDinn dictation software. It may contain incorrect words, [...] F Source: [facility] OFFICE VISIT 8:19 AM [facility] [place] [facility] [address] [facility] [address] [place] [address] OFFICE VISIT Date of Service: 11/20/17 MR#: [id number] Acct: [id number] Name: IMANI MINER Rep #: [id number] : 1940 Provider: Tania [facility] MD Age/Sex: 76/M Location: [facility] Status: Signed Intake Vital Signs11/20/17 Height 5 [...] well developed Orientation: alert, awake, oriented x3 [facility] Head: normal to inspection, normocephalic, atraumatic Ears: [...] symptoms worsen. This note was generated with Urban Interactionsation software. It may contain incorrect words, spelling, [...] INTERNAL MEDICINE Observed: 10/23/2017 Status: F Source: [place] OFFICE VISIT 4:49 PM [facility] [place] [facility] [address] [place] [address] OFFICE VISIT Date of Service: 10/19/17 MR#: [id number] Acct: [id number] Name: IMANI MINER Rep #: [id number] : 1940 Provider: Tania [facility] MD Age/Sex: 76/M Location: [facility] Status: Signed Intake Vital Signs10/19/17 Height 5 ft 7 in 10/19/17 Weight: 190 lb 8 oz Intake Visit Reasons: 3 M FU Relay Shop Supervisor Required: No Accompanied by: Is patient in [...] well developed Orientation: alert, awake, oriented x3 [facility] Head: normal to inspection, normocephalic, atraumatic Ears: [...] 1 month. This note was generated with Urban Interactionsation software. It may contain incorrect words, spelling, and punctuation that were not noted in checking the note before signing. Plan Detail Other Medications New: Follow Up 1 Month Coding Level of Care Code Off vis,est,level 3 Diagnoses Epistaxis, recurrent R04.0 Hypertension I10 10/23/17 1609 <Electronically signed by Tania [facility] MD> Date Tania [place] MD Cosigner Signature: Date (if applicable) CC: Observed: 10/23/2017 Status: F Source: [facility] CULTURE, URINE 10:39 AM [facility] REPOSITORY Urine Culture Culture exhibits no growth. Performed By: #### M100.0650 #### [facility] [place], [address] ALLERGIES ALLERGIES DATE TYPE / CODE NAME / CODE REACTION SEVERITY SOURCE 09/20/2018 Drug lisinopril/R75717 cough [place] [facility] Allergy/416 0658(RXNORM) [facility] 684790([facility]) Repository 09/20/2018 Drug niacin/P095430647 Other Unknown [facility] Allergy/416 (RXNORM) [facility] 281826([facility]) Repository 09/20/2018 Drug gemfibrozil/F0060 Pain in joints Unknown [facility] Allergy/416 16341(RXNORM) [facility] 285573([facility]) Repository 09/20/2018 Drug clavulanic Nausea/Vom/Diar [place] Allergy/416 acid/X938392024(R mikey [facility] 255208([facility] ED [facility]) Repository 09/20/2018 Drug amoxicillin/F0060 Nausea/Vom/Diar [place] Allergy/416 47965(RXNORM) mikey [facility] 750392([facility]) Repository 09/20/2018 Drug atorvastatin/F006 Pain in joints Unknown [facility] Allergy/416 507378(RXNORM) [facility] 894095([facility]) Repository ENCOUNTERS ENCOUNTERS ADMIT/DISCHARGE ACCOUNT ADMITTING ENCOUNTER LOCATION SOURCE NUMBER CLASS 10/13/2018 [id number] Ambulatory [facility]ali Hali 3 [facility] ing:CR Repository 10/05/2018 [id number] Ambulatory [facility] 3 [facility] ing:CR Repository 09/20/2018/ [id number] Ambulatory BMSBuilding:B [facility] 8 6 [facility] Repository 09/16/2018 [id number] Ambulatory [facility] Rep[facility] 09/11/2018/ [id number] Emergency [facility] 8 9 [facility] ing:ED Repository 09/08/2018 [id number] Ambulatory BMSBuilding:B H[facility] 3 [place].[facility] Repository 09/07/2018/ [id number] Ambulatory Hali Hali 8 8 [facility] ing:CLSPRoom: Repository [id number] 09/07/2018 [id number] Ambulatory BMSBuilding:W [facility] 9 [facility] Repository 09/06/2018 [id number] Ambulatory BMSBuilding:B Hali 9 [facility] Repository 09/06/2018/ [id number] Ambulatory BMSBuilding:B [facility] 8 6 [place] Repository 09/03/2018 [id number] Ambulatory [facility] 1 [facility] Hospital ing:LAB Repository 09/03/2018 [id number] Ambulatory BMSBuilding:W [facility] 2 [facility] Repository 09/01/2018 [id number] Ambulatory Hali Hali 4 [facility] Hospital ing:LAB Repository 09/01/2018/ [id number] Ambulatory BMSBuilding:B H[facility] 8 3 [facility] Repository 08/30/2018 [id number] [facility]ulatory [facility] 1 [facility] Repository 08/26/2018 [id number] Ambulatory [facility] 4 [facility] ing:CT Repository 08/24/2018/ [id number] Ambulatory BMSBuilding:B H[facility] 8 4 [place].[facility] Repository 08/24/2018/ [id number] Ambulatory [facility] 8 6 [facility] Hospital ing:ENRoom: Repository AC14 08/20/2018 [id number] Ambulatory BMSBuilding:W [facility] 6 [facility] Repository 08/20/2018 [id number] Ambulatory [facility] Hali 1 [facility] ing:PSN Repository 08/06/2018/ [id number] Ambulatory BMSBuilding:B Hali 8 0 [facility] Repository 08/04/2018/ [id number] Ambulatory BMSBuilding:B [facility] 8 2 [place] Repository 08/03/2018/ [id number] Ambulatory BMSBuilding:B [facility] 8 5 [facility] Repository 07/19/2018 [id number] Ambulatory Hali Hali 8 [facility] ing:SL Repository 06/24/2018 [id number] Ambulatory BMSBuilding:B Hali 8 [place].[facility] Repository 06/24/2018 [id number] Ambulatory BMSBuilding:B Hali 2 [place].[facility] Repository 06/24/2018 [id number] Ambulatory [facility] Hali 1 [facility] Hospital ing:[facility] Repository 06/08/2018/ [id number] Ambulatory BMSBuilding:B [facility] 8 1 [facility] [facility] Repository 05/21/2018/ [id number] [facility] 04/27/2018/ [id number] [facility] 04/20/2018 [id number] Ambulatory Hali Hali 1 [facility] Hospital ing:MTLAB Repository 04/20/2018/ [id number] Amb[facility]MS[facility] 03/30/2018/ [id number] [facility]MS[facility] 02/22/2018/ [id number] Ambulatory [facility] [place] [facility] 02/09/2018 [id number] [facility] 02/05/2018/ [id number] Amb[facility] [place] [facility] 02/02/2018/ [id number] Amb[facility] [place] [facility] 01/04/2018/ [id number] Ambulatory BMSBuilding:B Hali 8 9 [facility] Repository 11/20/2017/ [id number] Amb[facility]MSBuilding[facility] 10/23/2017 [id number] Ambulatory [place] Hali 6 [facility] Hospital ing:MTLAB Repository 10/19/2017/ [id number] Ambulatory [facility] [place] [facility] PAYERS PAYERS ENCOUNTER GUARANTOR PAYER SUBSCRIBER SOURCE 10/13/2018 IMANI MINER1445 [place] Insurance:MEDICARE BROWNDOB: [facility] katharine ANDRES PART A BPolicy Number: [id number] Hospital 33654Gjs: 330 [id number] Repository [phone] () Date:2018-10-05 10/13/2018 Secondary IMANI Barry Hali Insurance:HUMANA BROWNDOB: [facility] COMMERCIALPoly [id number] Hospital Number: Repository [id number] Date:6577-87-90XI [address] [address]IF: 10/13/2018 Tertiary NOT GIVENUNK [place] Insurance[place] [facility] [place]: Effective Repository Date:2018-10-05 10/05/2018 IMANI W Primary IMANI PUENTES5 [place] Insurance:MEDICARE BROWNDOB: [place] PART A BPolicy Number: [id number] Hospital 07932Eqp: 330 [id number] Repository [phone] () Date:2018-09-22 10/05/2018 Secondary IMANI Barry [place] Insurance:HUMANA BROWNDOB: [facility] COMMERCIALPolicy [id number] Hospital Number: Repository [id number] Date:6506-75-46BE [address] [address]RK: 10/05/2018 Tertiary NOT GIVENUNK [place] Insurance:SELF [place] [facility] Number: Effective Repository Date:2018-09-22 09/20/2018 IMANI W Primary IMANI PUENTES5 [place] Insurance:MEDICARE BROWNDOB: [place] PART A BPolicy Number: [id number] Hospital 33699Alk: 330 [id number] Repository [phone] () Date:2018-09-07 09/20/2018 Secondary IMANI Barry [place] Insurance:HUMANA BROWNDOB: [facility] [id number] Hospital Number: Repository [id number] Date:2629-35-27YE [address] [address]CE: 09/20/2018 Tertiary NOT GIVENUNK [place] Insurance[place]SELF [place] [facility] Number: Effective Repository Date:2018-09-20 09/16/2018 IMANI Barry Primary IMANI MARSH Insurance:MEDICARE [place]OB[place] PART A BPolicy Number: [id number] Hospital 41539Vpe: 330 [id number] Repository [phone] (HP) Date:2018-09-16 09/16/2018 Secondary IMANI Lal Insurance:HUMANA BROWNDOB: Community COMMERCIALPolicy [id number] Hospital Number: Repository [id number] Date:8473-39-26CN [address] [place] [address]TO: 09/16/2018 Tertiary NOT GIVENUNK [place] Insurance:SELF [place] [facility] Number: Effective Repository Date:2018-09-16 09/11/2018 IMANI W Primary IMANI MARSH Insurance:MEDICARE [place]NDOB: [place] PART A BPolicy Number: [id number] Hospital 61593Crw: 330 [id number] Repository [phone] (HP) Date:2018-09-11 09/11/2018 Secondary IMANI Lal Insurance:HUMANA BROWNDOB: [facility] [id number] Hospital Number: Repository [id number] Date:2085-57-85KM [address] [place] [address]SI: 09/11/2018 Tertiary NOT GIVENUNK [place] Insurance:SELF [place] [facility] Number: Effective Repository Date:2018-09-11 09/08/2018 IMANI Barry Primary IMANI MARSH Insurance:MEDICARE BROWNDOB: [place] PART A BPolicy Number: [id number] Hospital 278[address]Try: 330 [id number] Repository [phone] (HP) Date:2018-09-03 09/08/2018 Secondary IMANI Lal Insurance:HUMANA BROWNDOB: [facility] COMMERCIALPolicy [id number] Hospital Number: Repository [id number] Date:7382-46-91KM[address] [address]IQ: 09/08/2018 Tertiary NOT GIVENUNK Hali Insurance:SELF PAY [facility] Number: Effective Repository Date:2018-09-08 09/07/2018 IMANI Barry Primary IMANI PUENTES5 [place] Insurance:MEDICARE BROWNDOB: [place] PART A BPolicy Number: [id number] Hospital 90115Iux: (479) [id number] Repository [phone] () Date:2018-09-03 09/07/2018 Secondary IMANI Lal Insurance:HUMANA BROWNDOB: [facility] [id number] Hospital Number: Repository [id number] Date:3965-26-64WA[address] [address]HX: 09/07/2018 Tertiary NOT GIVENUNK [place]ali Insurance:SELF [place] [facility] Number: Effective Repository Date:2018-09-03 09/07/2018 IMANI W Primary IMANI PUENTES5 [place] Insurance:MEDICARE BROWNDOB: [facility] [place] PART A BPolicy Number: [id number] Hospital 23274Bho: (383) [id number] Repository [phone] () Date:2018-09-03 09/07/2018 Secondary IMANI Lla Insurance:HUMANA BROWNDOB: [facility] [id number] Hospital Number: Repository [id number] Date:0933-26-00KV[address] [address]BL: 09/07/2018 Tertiary NOT GIVENUNK [place] Insurance:SELF PAY [facility] Hospital Number: Effective Repository Date:2018-09-07 09/06/2018 IMANI Barry Primary IMANI PUENTES5 [place] Insurance:MEDICARE BROWNDOB: [facility] [place] PART A BPolicy Number: [id number] Hospital 44814Gko: (236) [id number] Repository [phone] () Date:2018-09-06 09/06/2018 Secondary IMANI Barry [place] Insurance:HUMANA BROWNDOB: [facility] COMMERCIALPoly [id number] Hospital Number: Repository [id number] Date:3709-68-88DK [address] [address]JU: 09/06/2018 Tertiary NOT GIVENUNK [place] Insurance:SELF PAY [facility] Number: Effective Repository Date:2018-09-06 09/06/2018 IMANI W Primary IMANI MINER1445 [place] Insurance:MEDICARE BROWNDOB: [place] PART A BPolicy Number: [id number] Hospital 78728Bmn: 330 [id number] Repository [phone] () Date:2018-09-03 09/06/2018 Secondary IMANI Barry Hali Insurance:HUMANA BROWNDOB: [facility] [id number] Hospital Number: Repository [id number] Date:7205-33-69JY [address] [address]DW: 09/06/2018 Tertiary NOT GIVENUNK [place] Insurance:SELF [place] [facility] Number: Effective Repository Date:2018-09-06 09/03/2018 IMANI W Primary IMANI MINER1445 [place] Insurance:MEDICARE BROWNDOB: [place] PART A BPolicy Number: [id number] Hospital 55822Bxa: 330 [id number] Repository [phone] () Date:2018-09-03 09/03/2018 Secondary IMANI Barry Hali Insurance:HUMANA BROWNDOB: [facility] [id number] Hospital Number: Repository [id number] Date:5369-68-60YR [address] [address]NM: 09/03/2018 Tertiary NOT GIVENUNK Hali Insurance:SELF PA[place] [facility] Number: Effective Repository Date:2018-09-03 09/03/2018 IMANI Barry Primary IMANI MINER1445 [place] Insurance:MEDICARE [place]NDOB[place] PART A BPolicy Number: [id number] Hospital 32587Ceg: 330 [id number] Repository [phone] () Date:2018-09-01 09/03/2018 Secondary IMANI Lal Insurance:HUMANA BROWNDOB: [facility] [id number] Hospital Number: Repository [id number] Date:0036-91-56PV [address] [place] [address]TI: 09/03/2018 Tertiary NOT GIVENUNK [place]ali Insurance:SELF [place] [facility] Number: Effective Repository Date:2018-09-01 09/01/2018 IMANI W Primary IMANI MINER1445 [place] Insurance:MEDICARE BROWNDOB: [facility] [place] PART A BPolicy Number: [id number] Hospital 23133Jhq: 330 [id number] Repository [phone] () Date:2018-09-01 09/01/2018 Secondary IMANI Lal Insurance:HUMANA BROWNDOB: [facility] [id number] Hospital Number: Repository [id number] Date:5941-46-92OW [address] [address]OV: 09/01/2018 Tertiary NOT GIVENUNK [place] Insurance:SELF PA[place] [facility] Number: Effective Repository Date:2018-09-01 09/01/2018 IMANI W Primary IMANI MINER1445 [place] Insurance:MEDICARE BROWNDOB: [facility] [place] PART A BPolicy Number: [id number] Hospital 40919Dga: 330 [id number] Repository [phone] () Date:2018-09-01 09/01/2018 Secondary IMANI Lal Insurance:HUMANA BROWNDOB: [facility] [id number] Hospital Number: Repository [id number] Date:5918-04-06LQ [address] [address]EN: 09/01/2018 Tertiary NOT GIVENUNK [place] Insurance:SELF PAY [facility] Hospital Number: Effective Repository Date:2018-09-01 08/30/2018 IMANI Barry Primary IMANI PUNETES5 [place] Insurance:MEDICARE [place]OWNDOB: [place] PART A BPolicy Number: [id number] Hospital 72341Szw: 330 [id number] Repository [phone] () Date:2018-08-05 08/30/2018 Secondary IMANI Barry Hali Insurance:HUMANA BROWNDOB: [facility] [id number] Hospital Number: Repository [id number] Date:7731-58-42OA [address] [address]JM: 08/30/2018 Tertiary NOT GIVENUNK Hali Insurance:SELF [place] [facility] Number: Effective Repository Date:2018-08-05 08/26/2018 IMANI Asha Primary IMANI PUENTES5 [place] Insurance:MEDICARE BROWNDOB: [place] PART A BPolicy Number: [id number] Hospital 92258Flj: 330 [id number] Repository [phone] () Date:2018-08-16 08/26/2018 Secondary IMANI Barry [place] Insurance:HUMANA BROWNDOB: [facility] [id number] Hospital Number: Repository [id number] Date:5082-81-61PI [address] [address]SU: 08/26/2018 Tertiary NOT GIVENUNK [place] Insurance:[place] [facility] Number: Effective Repository Date:2018-08-16 08/24/2018 IMANI Barry Primary IMANI PUENTES5 [place] Insurance:MEDICARE BROWNDOB: [place] PART A BPolicy Number: [id number] Hospital 10697Vua: (226) [id number] Repository [phone] (HP) Date:2018-08-06 08/24/2018 Secondary IMANI Barry [place] Insurance:HUMANA BROWNDOB: Community COMMERCIALPolicy [id number] Hospital Number: Repository [id number] Date:3429-13-41FH [place] 73[address]WP: 08/24/2018 Tertiary NOT GIVENUNK Hali Insurance:SELF PAY [facility] Hospital Number: Effective Repository Date:2018-08-24 08/24/2018 IMANI W Primary IMANI PUENTES5 [place] Insurance:MEDICARE BROWNDOB: [place] PART A BPolicy Number: [id number] Hospital 89316Gyv: 330 [id number] Repository [phone] () Date:2018-08-06 08/24/2018 Secondary IMANI Barry Hali Insurance:HUMANA BROWNDOB: [facility] COMMERCIALPolicy [id number] Hospital Number: Repository [id number] Date:7092-83-24KT[address] [address]WV: 08/24/2018 Tertiary NOT GIVENUNK Hali Insurance:SELF PAY [facility] Hospital Number: Effective Repository Date:2018-08-06 08/20/2018 IMANI Barry Primary IMANI PUENTES5 [place] Insurance:MEDICARE BROWNDOB: [place] PART A BPolicy Number: [id number] Hospital 33790Jxi: 330 [id number] Repository [phone] () Date:2018-08-04 08/20/2018 Secondary IMANI Lal Insurance:HUMANA BROWNDOB: [facility] COMMERCIALPolicy [id number] Hospital Number: Repository [id number] Date:2779-66-12DZ[address] [address]RI: 08/20/2018 Tertiary NOT GIVENUNK [place] Insurance:SELF PAY [facility] Hospital Number: Effective Repository Date:2018-08-20 08/20/2018 IMANI W Primary IMANI PUENTES5 [place] Insurance:MEDICARE BROWNDOB: [facility] BPolicy Number: [id number] Hospital 33849Zzf: 330 [id number] Repository [phone] () Date:2018-08-04 08/20/2018 Secondary IMANI Lal Insurance:HUMANA BROWNDOB: [facility] [id number] Hospital Number: Repository [id number] Date:8281-73-75QA [address] [address]ZC: 08/20/2018 Tertiary NOT GIVENUNK [place] Insurance:[facility] [facility] Number: Effective Repository Date:2018-08-04 08/06/2018 IMANI Barry Primary IMANI MINER1445 [place] Insurance:MEDICARE BROWNDOB: [facility] PART A BPolicy Number: [id number] Hospital 71611Jcx: 330 [id number] Repository [phone] () Date:2018-07-19 08/06/2018 Secondary IMANI Lal Insurance:HUMANA BROWNDOB: [facility] [id number] Hospital Number: Repository [id number] Date:7270-37-87FP [address] [address]WH: 08/06/2018 Tertiary NOT GIVENUNK [place] Insurance:[place]LF [place] [facility] Number: Effective Repository Date:2018-08-04 08/04/2018 IMANI W Primary IMANI MINER1445 [place] Insurance:MEDICARE BROWNDOB: [facility] [place] BPolicy Number: [id number] Hospital 33043Kzy: 330 [id number] Repository [phone] () Date:2018-07-08 08/04/2018 Secondary IMANI Lal Insurance:HUMANA BROWNDOB: [facility] [id number] Hospital Number: Repository [id number] Date:7039-46-49UL [address] [address]BY: 08/04/2018 Tertiary NOT GIVENUNK [place] Insurance:SELF [place] [facility] Number: Effective Repository Date:2018-07-29 08/03/2018 IMANI Barry Primary IMANI PUENTES5 [place] Insurance:MEDICARE [place]OWNDOB: [place] PART A BPolicy Number: [id number] Hospital 42449Tgz: (506) [id number] Repository [phone] () Date:2018-04-27 08/03/2018 Secondary IMANI Lal Insurance:HUMANA BROWNDOB: [facility] [id number] Hospital Number: Repository [id number] Date:3764-53-25QS[address] [address]MX: 08/03/2018 Tertiary NOT GIVENUNK [place] Insurance:[facility]LF [place] [facility] Number: Effective Repository Date:2018-08-03 07/19/2018 IMANI Barry Primary IMANI PUENTES5 [place] Insurance:MEDICARE [place]OWNDOB: [place] PART A BPolicy Number: [id number] Hospital 43968Myj: (056) [id number] Repository [phone] () Date:2018-06-28 07/19/2018 Secondary IMANI Loveoster Insurance:HUMANA BROWNDOB: [facility] [id number] Hospital Number: Repository [id number] Date:6869-82-05NJ[address] [address]LX: 07/19/2018 Tertiary NOT GIVENUNK [place] Insurance:SELF [place] [facility] Number: Effective Repository Date:2018-06-28 06/24/2018 IMANI Barry Primary IMANI MARSH Insurance:MEDICARE BROWNDOB: [place] PART A BPolicy Number: [id number] Hospital 11542Che: (396) [id number] Repository [phone] () Date:2018-06-08 06/24/2018 Secondary IMANI Barry Hali Insurance:HUMANA BROWNDOB: Community COMMERCIALPolicy [id number] Hospital Number: Repository [id number] Date:0174-88-42IS[address] [address]EJ: 06/24/2018 Tertiary NOT GIVENUNK [place] Insurance:SELF PAY [facility] Hospital Number: Effective Repository Date:2018-06-24 06/24/2018 IMANI Barry Primary IMANI PUENTES5 [place] Insurance:MEDICARE BROWNDOB: [place] PART [place] BPolicy Number: [id number] Hospital 75761Wsa: (932) [id number] Repository [phone] () Date:2018-06-08 06/24/2018 Secondary IMANI Barry [place] Insurance:HUMANA BROWNDOB: [facility] COMMERCIALPolicy [id number] Hospital Number: Repository [id number] Date:6204-81-56IZ[address] [address]GO: 06/24/2018 Tertiary NOT GIVENUNK [place] Insurance:SELF PAY [facility] Hospital Number: Effective Repository Date:2018-06-24 06/24/2018 IMANI W Primary IMANI PUENTES5 [place] Insurance:MEDICARE BROWNDOB: [place] PART [place] BPolicy Number: [id number] Hospital 44832Lvb: (936) [id number] Repository [phone] () Date:2018-06-08 06/24/2018 Secondary IMANI Barry Hali Insurance:HUMANA BROWNDOB: Community COMMERCIALPolicy [id number] Hospital Number: Repository [id number] Date:7236-92-07WT[address] [address]UT: 06/24/2018 Tertiary NOT GIVENUNK [place] Insurance:SELF PAY [facility] Hospital Number: Effective Repository Date:2018-06-08 06/08/2018 IMANI W Primary IMANI PUENTES5 [place] Insurance:MEDICARE BROWNDOB: [place] PART [place] BPolicy Number: [id number] Hospital 63730Rgg: (781) [id number] Repository [phone] () Date:2018-06-01 06/08/2018 Secondary IMANI Barry Hali Insurance:HUMANA BROWNDOB: [facility] [id number] Hospital Number: Repository [id number] Date:9127-96-90ZH[address] [address]IS: 06/08/2018 Tertiary NOT GIVENUNK [place] Insurance[place] [facility] Number: Effective Repository Date:2018-06-08 05/21/2018 IMANI W Primary IMANI PUENTES5 [place] Insurance:MEDICARE BROWNDOB: [facility] [place] PART [place] BPolicy Number: [id number] Hospital 10427Ufb: (383) [id number] Repository [phone] () Date:2018-05-21 05/21/2018 Secondary IMANI Asha [place] Insurance:HUMANA BROWNDOB: [facility] COMMERCIALPolicy [id number] Hospital Number: Repository [id number] Date:5700-66-77TV [address] [address]UL: 05/21/2018 Tertiary NOT GIVENUNK [place] Insurance:[facility] [facility] Number: Effective Repository Date:2018-05-21 04/27/2018 IMANI W Primary IMANI MINER1445 [place] Insurance:MEDICARE BROWNDOB: [facility] [place] PART A BPolicy Number: [id number] Hospital 35047Ajl: (327) [id number] Repository [phone] () Date:2018-03-30 04/27/2018 Secondary IMANI Barry [place] Insurance:HUMANA MORGANDOB: [facility] [id number] Hospital Number: Repository [id number] Date:5506-45-09TN[address] [address]AC: 04/27/2018 Tertiary NOT GIVENUNK [place] Insurance:[facility] [facility] Number: Effective Repository Date:2018-04-27 04/20/2018 IMANI W Primary IMANI PUENTES5 [place] Insurance:MEDICARE BROWNDOB: [place] PART [place] BPolicy Number: [id number] Hospital 55342Klp: (309) [id number] Repository [phone] () Date:2018-04-20 04/20/2018 Secondary IMANI W H[place] Insurance:HUMANA BROWNDOB: [facility] [id number] Hospital Number: Repository [id number] Date:1881-17-05EZ[address] [address]ZM: 04/20/2018 Tertiary NOT GIVENUNK [place] Insurance:[facility] [facility] Number: Effective Repository Date:2018-04-20 04/20/2018 IMANI W Primary IMANI MINER1445 [place] Insurance:MEDICARE [place]OWNDOB: [place] PART [place] BPolicy Number: [id number] Hospital 76243Tdi: 330 [id number] Repository [phone] () Date:2018-04-20 04/20/2018 Secondary IMANI Barry Hali Insurance:HUMANA BROWNDOB: [facility] [id number] Hospital Number: Repository [id number] Date:0639-80-22BC[address] [address]VO: 04/20/2018 Tertiary NOT GIVENUNK [place] Insurance:SELF [place] [facility] Number: Effective Repository Date:2018-04-20 03/30/2018 IMANI W Primary IMANI MINER1445 [place] Insurance:MEDICARE [place]OWNDOB: [place] PART [place] BPolicy Number: [id number] Hospital 11179Zvl: (313) [id number] Repository [phone] () Date:2018-03-29 03/30/2018 Secondary IMANI W [place] Insurance:HUMANA BROWNDOB: [facility] [id number] Hospital Number: Repository [id number] Date:9436-02-98OI[address] [address]NI: 03/30/2018 Tertiary NOT GIVENUNK [place] Insurance:SELF PAY [facility] Hospital Number: Effective Repository Date:2018-03-30 02/22/2018 IMANI Barry Primary IMANI MARSH Insurance:MEDICARE [place]NDOB: [place] PART [place] BPolicy Number: [id number] Hospital 85337Pch: [id number] Repository [phone] Date:2017-11-20 0-7 (HP) 02/22/2018 Secondary IMANI Barry Hali Insurance:HUMANA BROWNDOB: [facility] [id number] Hospital Number: Repository [id number] Date:3214-12-34DL [address] [address]VG: 02/22/2018 Tertiary NOT GIVENUNK [place] Insurance:SELF PAY [facility] Hospital Number: Effective Repository Date:2018-03-04 02/09/2018 IMANI W Primary IMANI MARSH Insurance:MEDICARE [place]NDOB: [place] PART [place] BPolicy Number: [id number] Hospital 58436Ezl: [id number] Repository [phone] Date:2018-02-05 0-7 (HP) 02/09/2018 Secondary IMANI Barry Hali Insurance:HUMANA BROWNDOB: Community COMMERCIALPolicy [id number] Hospital Number: Repository [id number] Date:2919-63-11KJ [address] [address]OB: 02/09/2018 Tertiary NOT GIVENUNK [place] Insurance:SELF PAY [facility] Hospital Number: Effective Repository Date:2018-02-05 02/05/2018 IMANI Barry Primary IMANI MARSH Insurance:MEDICARE [place]NDOB: [place] PART [place] BPolicy Number: [id number] Hospital 00370Ern: [id number] Repository [phone] Date:2018-02-05 0-7 (HP) 02/05/2018 Secondary IMANI Barry [place] Insurance:HUMANA BROWNDOB: Community COMMERCIALPolicy [id number] Hospital Number: Repository [id number] Date:3062-84-98WS [address] [address]LD: 02/05/2018 Tertiary NOT GIVENUNK [place] Insurance:SELF PAY [facility] Hospital Number: Effective Repository Date:2018-02-05 02/02/2018 IMANI W Primary IMANI PUENTES5 [place] Insurance:MEDICARE [place]OB: [place] BPolicy Number: [id number] Hospital 87448Xpq: [id number] Repository [phone] Date:2018-02-01 0-7 (HP) 02/02/2018 Secondary IMANI Barry Hali Insurance:HUMANA BROWNDOB: [facility] COMMERCIALPolicy [id number] Hospital Number: Repository [id number] Date:1128-04-18KD [address] [address]CA: 02/02/2018 Tertiary NOT GIVENUNK [place] Insurance:SELF PAY [facility] Number: Effective Repository Date:2018-02-02 01/04/2018 IMANI W Primary IMANI PUENTES5 [place] Insurance:MEDICARE BROWNDOB: [facility] [place] A BPolicy Number: [id number] Hospital [address]Ztr: [id number] Repository [phone] Date:2018-01-04 0-7 (HP) 01/04/2018 Secondary IMANI Barry [place] Insurance:HUMANA BROWNDOB: Community COMMERCIALPolicy [id number] Number: Repository [id number] Date:[id number] [address]UX: 01/04/2018 Tertiary NOT GIVENUNK [place] Insurance:SELF PAY [facility] Number: Effective Repository Date:2018-01-04 11/20/2017 IMANI W Primary IMANI PUENTES5 [place] Insurance:MEDICARE [place]OB[place] PART A BPolicy Number: [id number] Hospital [address]Dwy: [id number] Repository [phone] Date:2017-10-19 0-7 (HP) 11/20/2017 Secondary IMANI Barry [place] Insurance:HUMANA BROWNDOB: [facility] COMMERCIALPoly [id number] Hospital Number: Repository [id number] Date:[id number] [address]IP: 11/20/2017 Tertiary NOT GIVENUNK [place] Insurance:SELF PAY [facility] Number: Effective Repository Date:2017-10-19 10/23/2017 IMANI W Primary IMANI [id number] [place] Insurance:MEDICARE BROWNDOB: [place] PART A BPolicy Number: [id number] [address]Nat: [id number] Repository [phone] Date:2017-10-23 0-7 (HP) 10/23/2017 Secondary IMANI Barry [place] Insurance:HUMANA BROWNDOB: [facility] [id number] Hospital Number: Repository [id number] Date:[id number] [address]BW: 10/23/2017 Tertiary NOT GIVENUNK [place] Insurance:SELF PAY [facility] Number: Effective Repository Date:2017-10-23 10/19/2017 IMANI W Primary IMANI [id number] [place] Insurance:MEDICARE BROWNDOB: [place] PART A BPolicy Number: [id number] Hospital [address]Dcz: [id number] Repository [phone] Date:2017-08-22 0-7 (HP) 10/19/2017 Secondary IMANI Barry Hali Insurance:HUMANA BROWNDOB: [facility] COMMERCIALPolicy [id number] Hospital Number: Repository [id number] Date:[id number] [address]CJ: 10/19/2017 Tertiary NOT GIVENUNK [place] Insurance:SELF PAY [facility] Effective Repository Date:2017-08-22
== END 2018-09-08 10:30 | disposition home or self-care (01) ==
LOC: CLSP 07:57 → ICU 11:32
PROVIDERS: Family Provider Internal Medicine; PCP Internal Medicine; Referring Provider Internal Medicine Cardiovascular Disease; Visit Provider Internal Medicine Cardiovascular Disease
DX: I25.10 Atherosclerotic heart disease of native coronary artery without angina pectoris (principal); E78.5 Hyperlipidemia, unspecified; I10 Essential (primary) hypertension; I49.3 Ventricular premature depolarization; R94.31 Abnormal electrocardiogram [ECG] [EKG]; R10.31 Right lower quadrant pain; R23.3 Spontaneous ecchymoses; I44.4 Left anterior fascicular block
CPT/HCPCS: 80048; 80061; 85027; 85347; 92928; 92929; 93005; 93458; 93926; 94640; J7030; J7040; Q9967; C1725; C1769; C1874; C1887; C9600; C9601

== ENCOUNTER 2018-09-11 02:43 | Emergency (ER) | payer MEDICARE, OTHER, SELFPAY ==
[2018-09-07 13:38] VITALS: BMI 28.8
[2018-09-08 08:47] VITALS: BMI 28.0
[2018-09-11 02:43] VITALS: BP 165/91; PULSE 73; RESP 16; TEMP 36.4; O2SAT 97; BMI 26.5
--- NOTE | 2018-09-11 03:01 | ED.RN ---
DR NICOLE PAGED
--- NOTE | 2018-09-11 03:02 | ED.VISSUMM ---
- ER Visit Summary Date of Service: 09/11/18 Chief Complaint: Instructed to have Site evaluated History of Present Illness: The patient is a 77 M who had a cardiac catheterization by Dr. Jose Eaton on Thursday. Right femoral artery was cannulated. Patient states he had 2 stents placed. He states there was difficulty post catheterization regarding bleeding. This evening he states he felt the lump in the right inguinal and applied pressure for 20 minutes. He states the lump is now smaller in size. Spoke with Dr. Eaton who says the vessel was ultrasounded during his hospital stay earlier this week. No pseudoaneurysm noted at that time. Patient is on Plavix. He states the area of discoloration and ecchymosis is not significantly larger. Physical Examination: Vital signs remarkable blood pressure 165/91. Examination of the right groin reveals significant amount of ecchymosis. The right femoral artery is much more prominent palpable and larger in size on the right compared to left. Mild discomfort with pressure. Test Results: Arterial ultrasound ordered to evaluate for pseudoaneurysm Emergency Department Course and Treatment: IV was established. 20 pound sandbag was applied. Since patient is not actively bleeding who will be observed in the ER until vascular personnel available in the morning for arterial study to evaluate for pseudoaneurysm. Treatment Plan: 20 pound sandbag and arterial study in the morning Disposition: Pending results of ultrasound and discussing case again with Dr. Eaton Impression: Pending arterial study This note was generated with Logoproation software. It may contain incorrect words, spelling, and punctuation that were not noted in review of the chart prior to signing <Cedric Fonseca - Last Filed: 09/11/18 03:02> - ER Visit Summary Ultrasound was performed is negative for pseudoaneurysm or fistula. Patient was assessed by Dr. Eaton here in the department. They addressed his hypertension. He will be discharged home with continued home care with follow-up as arranged. 1. Right inguinal hematoma This note was generated with Logoproation software. It may contain incorrect words, spelling, and punctuation that were not noted in review of the chart prior to signing <Kike Haas - Last Filed: 09/11/18 09:40> ED Disposition <Cedric Fonseca - Last Filed: 09/11/18 03:02> <Kike Haas - Last Filed: 09/11/18 09:40> - Plan for ED Patient: Disposition: Home or Assisted Living Chief Complaint: Wound Check Instructions: ED Cardiac Cath Post Bleed Hematom Referrals: Tania Jackson MD [Primary Care Provider] - Kike Eaton MD [STAFF PHYSICIAN] - (as scheduled)
--- NOTE | 2018-09-11 03:09 | ADUL_ITS ---
Reason For Study: PSEUDOANEURYSM Right Velocities RT CANVAS CUTTER HAND measures .9 x .9 cm with a velocity of 110 cm/sec. RT CFV demonstrated normal phasic flow pattern. No evidence of Pseudoaneurysm or AV Fistula. Interpretation Summary Normal right common femoral artery 0.9 x 0.9cm with no evidence for pseudoaneurysm or AV fistula Ordering Physician: Cedric Fonseca Referring Physician: KHADIJAH VAZQUEZ Performed By: Joleen Puente, MARGARITO, RVT
[2018-09-11 07:44] VITALS: BP 151/74; PULSE 71; RESP 18; O2SAT 99
[2018-09-11 09:37] VITALS: BP 172/83; PULSE 70; RESP 12; O2SAT 94
[2018-09-11 09:46] VITALS: BP 174/89; PULSE 72; RESP 15; O2SAT 98
== END 2018-09-11 09:46 | disposition home or self-care (01) ==
PROVIDERS: Emergency Provider Emergency Medicine; Family Provider Internal Medicine; PCP Internal Medicine
DX: S30.1XXA Contusion of abdominal wall, initial encounter (principal); X58.XXXA Exposure to other specified factors, initial encounter; I72.4 Aneurysm of artery of lower extremity; Y93.89 Activity, other specified; Y92.9 Unspecified place or not applicable; Y99.9 Unspecified external cause status; R23.3 Spontaneous ecchymoses; I10 Essential (primary) hypertension; E78.00 Pure hypercholesterolemia, unspecified; I25.10 Atherosclerotic heart disease of native coronary artery without angina pectoris; K21.9 Gastro-esophageal reflux disease without esophagitis; G47.33 Obstructive sleep apnea (adult) (pediatric); E03.9 Hypothyroidism, unspecified; N40.0 Benign prostatic hyperplasia without lower urinary tract symptoms
CPT/HCPCS: 93926; 99283

== ENCOUNTER → 2018-10-05 09:09 | Outpatient (CLI) | payer MEDICARE, OTHER, SELFPAY ==
[2018-09-08 08:47] VITALS: BMI 28.0
[2018-09-20 13:23] VITALS: BMI 26.5
--- NOTE | 2018-10-05 10:04 | PCM.CR.HP2 ---
CR - History & Physical - General Arrival date:: 10/05/18 Arrival time:: 09:30 Date of Referral:: 09/08/18 Date of CR Evaluation:: 10/05/18 Referring Physician: Dr. Kike Eaton Primary Diagnosis: PCI w/stent - History of Present Cardiac Event Onset Date: Enter Onset Date of cardiac illnesses in Comment field below PTCA or coronary stenting:: Yes - 09/07/2018; after holter monitor and diagnostic testing Type of Symptoms:: skipping heart rate. Interventions with present event:: Heart cath, holter monitor Were there any complications?: hematoma at sight of cath insertion; 20# weight applied - Medications Home Medications: Ambulatory Orders Medication Instructions Recorded Aspirin [Aspirin, Baby] 81 mg PO QHS 03/20/14 Finasteride [Proscar] 5 mg PO QHS 03/20/14 Magnesium 500 mg PO DAILY 03/20/14 Multivitamins,Therapeutic 1 tab PO DAILY 03/20/14 [Multivitamin] Allergy Shot 1 unit IM QWEEK 08/13/16 Bilberry 375 mg PO QHS 08/13/16 Calcium Carbonate [Calcium] 1,500 mg PO QHS 08/13/16 Cholecalciferol (VIT D3) [Vitamin 2,000 unit PO QHS 08/13/16 D3] Testosterone Cypionate 100 mg IM UD 08/13/16 [Depo-Testosterone] Ubidecarenone [Co Q-10] 30 mg PO QHS 08/13/16 omeprazole 20 mg capsule,delayed 20 mg PO DAILY 09/09/17 release psyllium seed (sugar) oral powder 1 tbsp PO DAILY 09/09/17 budesonide-formoterol HFA 160 2 puff INHALATION BID 05/21/18 mcg-4.5 mcg/actuation aerosol inhaler cyanocobalamin (vit B-12) 500 mcg 250 mcg PO DAILY@0800 tab 06/08/18 tablet labetalol 200 mg tablet 200 mg PO BID #180 tab 08/17/18 levothyroxine 112 mcg tablet 112 mcg PO QDAY #90 tab 08/17/18 Hydrochlorothiazide [Hctz] 25 mg PO DAILY 08/20/18 Rosuvastatin Calcium 5 mg PO QHS 08/20/18 sertraline 25 mg tablet 25 mg PO LUNCH #90 tab 08/31/18 losartan 100 mg tablet 100 mg PO QHS #90 tab 09/02/18 amlodipine 5 mg tablet 5 mg PO DAILY #90 tab 09/17/18 gabapentin 300 mg capsule 300 mg PO TID #270 cap 09/17/18 clopidogrel 75 mg tablet 75 mg PO DAILY #90 tab 09/20/18 - Allergies Allergies/Adverse Reactions: Allergies amoxicillin [From Augmentin] Adverse Reaction (Intermediate, Verified 09/20/18 13:24) Nausea/Vom/Diarrhea clavulanic acid [From Augmentin] Adverse Reaction (Intermediate, Verified 09/20/18 13:24) Nausea/Vom/Diarrhea lisinopril Adverse Reaction (Intermediate, Verified 09/20/18 13:24) cough atorvastatin [From Lipitor] Adverse Reaction (Verified 09/20/18 13:24) Pain in joints gemfibrozil [From Lopid] Adverse Reaction (Verified 09/20/18 13:24) Pain in joints niacin Adverse Reaction (Verified 09/20/18 13:24) Other HOT FLASHES - Sleep Disorder Evaluation Hx of Sleep Apnea: Yes Do you snore loudly (louder than talking or can be heard through closed doors)?: Yes - has CPAP machine at home, getting used to it. Do you often feel tired/ fatigued/ sleepy during daytime?: No Has anyone observed you stop breathing during sleep?: No History of Hypertension (for STOP score): Yes - sleep study done here at [facility] STOP Results: Positive Advanced Directives - Advanced Directives Power of Clinical Investigator: Yes Living Will: Yes Advance Directives on File: Yes DNR Order?:: No - MOLST See MOLST form: No Past Medical History - Past Medical Illness Medical History: Past Medical History (Last Updated 09/07/18 @ 20:10 by Nel Mcarthur) Pre-operative cardiovascular exam, new EKG abnormalities c/w ischemia (Acute) Z01.810, R94.31 Premature ventricular contractions (Acute) I49.3 Screening for intestinal cancer (Acute) Z12.10 Hearing loss (Chronic) H91.90 Nonrheumatic tricuspid (valve) insufficiency (Chronic) I36.1 Mild (1+) per echo 11/26/2016. RVSP 35 mmhg. Hypothyroidism (Chronic) E03.9 Atherosclerotic heart disease of [place] coronary artery without angina pectoris (Chronic) I25.10 [place] (2.5 X 38 Promus Synergy) to mid LAD; CAMERON (2.5 X 12 Promus Synergy) to Diagonal per Dr. Eaton @ [facility] 09/07/2018 Malaise and fatigue (Acute) R53.81, R53.83 Hypertension (Chronic) I10 Hypertension (Chronic) I10 Gastroesophageal reflux disease (Chronic) K21.9 Hyperlipidemia (Chronic) E78.5 Arthritis M19.90 Hay fever J30.1 Shoulder pain M25.519 Crohns disease K50.90 - Past Surgical History Surgical History: Past Surgical History (Last Reviewed 09/20/18 @ 13:25 by Sapna Carranza) Stented coronary artery (Chronic) Onset Date: 09/07/18 Z95.5 CAMERON (2.5 X 38 Promus Synergy) to mid LAD; [place]ER[place] (2.5 X 12 Promus Synergy) to Diagonal per Dr. Eaton @ [facility] History of left heart catheterization (Chronic) Onset Date: 03/21/14 Z98.890 Nonobstructive CAD, <25% in septal test inspection engineer and ramus, per Dr. Dunn @ [facility] eye lesion removal H/O hemorrhoidectomy Z98.890 1989 H/O vasectomy Z98.52 1972 History of prostate surgery Z98.890 2009 & 2015 Hx of appendectomy Z98.890, Z90.49 ruptured appendix, 1993 Surgical History: - - Family History Summary Family History: Family History (Last Reviewed 09/20/18 @ 13:25 by Sapna Carranza) Grandfather CVA (cerebral vascular accident) Depression Brother COPD (chronic obstructive pulmonary disease) Grandmother Depression Son Arthritis Father Arthritis CAD (coronary artery disease) Mother Hypertension Hyperlipidemia Pacemaker Other Cancer Social History - Smoking History Smoking Status: Never smoker Hx Tobacco Use: No Hx Smoking Exposure: No - Alcohol Use Alcohol Usage: No - not for 55 years - Substance Abuse Hx Substance Use: No - Occupation Occupation (List type of work in comments):: Retired - in 1996 and held a partt [employer] job for 5 years, now fully retired. - Hobbies, Recreation, Social Activities Hobbies: Other - lawn work, gardening, mowing lawn. Recreational Activities: I am able to engage in all my recreational activities Social Environment - Status Marital Status: - Current Living Arrangements Living Environment:: Spouse - Children How many children do you have?: 3 Do any of your children live nearby?: Yes - 2 in [place] area - Safety Do you feel safe in your surroundings?: Yes - Assistance Do you need any assistance at home?: none Review of Systems - Review of Systems Hints: Right click = Denies (Slash). Left click = Reports ([place]) Review of Present Symptoms: Reports: Shortness of Breath with Exertion - a little bit, Dizziness/Lightheadedness - a little bit; often times when standing up from sitting or laying position, Fatigue - takes a nap daily, Heart Arrhythmia/Irregularities - irregular rhythm lsat day or two has had irregular rhythm. H/O PVCs., Appetite - Normal, Appetite - Special Diet - cut out caffeine, tried cutting back on salt still using,, Sleep - Normal. Denies: Shortness of Breath at Rest, Sexual Changes - Pain Is Patient Pain Free?: No Pain Location: lower extremity - right knee and leg pain Risk Factor Assessment - Chief Complaint Chief Complaint: Patient presentst o cardiac rehab today following recent PTCA and coronary stent implant in August 2018. Patient is very [place] and wears bilateral hearing aids. He was to have an occular implant done, but that has been placed on hold due to his recent PCI and blood thinners. - Vital Signs Temperature: 98.7 F Respiratory Rate: 14 Pulse Ox: 96 Blood Pressure: 110/64 Nailbeds:: pink - Pulse Pulse Rate: 58 Pulse Rhythm: Regular - Hypertension How long have you been treated?: 15 On medication(s)?: yes Blood Pressure Sitting - Left Arm: 110/64 - Blood Cholesterol/Lipids Total Cholesterol (mg/dL) Goal = less than 200 mg/dL: 131 HDL Cholesterol (mg/dL) Goal = less than 40 mg/dL: 36 LDL Cholesterol (mg/dL) Goal = less than 70 mg/dL: 62 Triglycerides (mg/dL) Goal = less than 150 mg/dL: 163 - Diabetes Nutrition Referral for Diabetes: No - Obesity Height: 5 ft 8 in Weight:: 185 lb Weight in Pounds: 185.0 lbs Weight Source: Estimated by Patient Body Mass Index (BMI): 28.1 Nutritional Referral for Obesity: No - Physical Inactivity Physical Inactivity: None - Risk Stratification Risk Guidelines: Lowest Risk: Risk Factor for Smoking, Risk Factor for Dyslipidemia, Risk Factor for Diabetes, Risk Factor for Hypertension, Risk Factor for Sedentary Lifestyle, Risk Factor for Depression, Moderate Risk: Risk Factor for Obesity - For Smoking Smoking Risk Guidelines: Smoking Low Risk: None or quit greater than 6 months ago. Smoking Moderate Risk: Smoker or quit 6 months or less ago. Smoking High Risk: Smoker - For Dyslipidemia Dyslipidemia Risk Guidelines: Low Risk: Moderate Risk: High Risk: 15-25% fat 25.1-29% fat >/= 30% fat. <7% sat fat 7-9% sat fat >9% sat fat. <150 mg chol 150-299 mg chol >/= 300 mg chol. LDL <100 LDL 100-129 LDL >/= 130. Chol/HDL ratio <5.0 Chol/HDL ratio 5.0-6.0 Chol/HDL ratio >6.0. Triglycerides <100 Triglycerides 100-149 Triglycerides >/= 150 - For Diabetes Mellitus Diabetes Risk Guidelines: Diabetes Low Risk: HgA1c <6.5% and/or FBG <120. Diabetes Moderate Risk: HgA1c 6.6-7.9% and/or FBG 120-180. Diabetes High Risk: HgA1c >/= 8% and/or FBG >180 - For Obesity/Overweight Obesity/Overweight Risk Guidelines: Obesity Low Risk: BMI <25.0. Obesity Moderate Risk: BMI 25-29.9. Obesity High Risk: BMI >/= 30.0 - For Hypertension Hypertension Risk Guidelines: Hypertension Low Risk: Systolic <120 and Diastolic <80. Hypertension Moderate Risk: Systolic 120-139 and Diastolic 80-89. Hypertension High Risk: Systolic >/= 140 and Diastolic >/= 90 - For Sedentary Lifestyle Sedentary Lifestyle Risk Guidelines: Sedentary Lifestyle Low Risk: >/= 1,500 kcal/week. Sedentary Lifestyle Moderate Risk: 700-1,499 kcal/week. Sedentary Lifestyle High Risk: < 700 kcal/week - For Depression Depression Risk Guidelines: Depression Low Risk: Not clinically depressed. Depression Moderate Risk: Mildly depressed. Depression High Risk: Clinically depressed - Family History Family History: Family History (Last Reviewed 09/20/18 @ 13:25 by Sapna Carranza) Grandfather CVA (cerebral vascular accident) Depression Brother COPD (chronic obstructive pulmonary disease) Grandmother Depression Son Arthritis Father Arthritis CAD (coronary artery disease) Mother Hypertension Hyperlipidemia Pacemaker Other Cancer Motivation - Motivation to Participate On a scale of 1 to 10, how prepared are you to commit to attending program?: 10 What do you see as barriers to successfully being able to complete the program?: a little problem with pain in his right hip. What do you see as the benefits of succesfully completing the program? In other words, what do you hope to get out of participating in the program?: be more healthy, live a few more years, control BP, and be more active Are there issues you are dealing with that will interfere with completing the program?: none Do you have a spouse or signficant other, family or friends who will help support you to complete the program?: yes.
--- NOTE | 2018-10-05 10:09 | CR.HP_ITS ---
CR - History & Physical - General Arrival date:: 10/05/18 Arrival time:: 09:30 Date of Referral:: 09/08/18 Date of CR Evaluation:: 10/05/18 Referring Physician: Dr. Kike Eaton Primary Diagnosis: PCI w/stent - History of Present Cardiac Event Onset Date: Enter Onset Date of cardiac illnesses in Comment field below PTCA or coronary stenting:: Yes - 09/07/2018; after holter monitor and diagnostic testing Type of Symptoms:: skipping heart rate. Interventions with present event:: Heart cath, holter monitor Were there any complications?: hematoma at sight of cath insertion; 20# weight applied - Medications Home Medications: Ambulatory Orders Medication Instructions Recorded Aspirin [Aspirin, Baby] 81 mg PO QHS 03/20/14 Finasteride [Proscar] 5 mg PO QHS 03/20/14 Magnesium 500 mg PO DAILY 03/20/14 Multivitamins,Therapeutic 1 tab PO DAILY 03/20/14 [Multivitamin] Allergy Shot 1 unit IM QWEEK 08/13/16 Bilberry 375 mg PO QHS 08/13/16 Calcium Carbonate [Calcium] 1,500 mg PO QHS 08/13/16 Cholecalciferol (VIT D3) [Vitamin 2,000 unit PO QHS 08/13/16 D3] Testosterone Cypionate 100 mg IM UD 08/13/16 [Depo-Testosterone] Ubidecarenone [Co Q-10] 30 mg PO QHS 08/13/16 omeprazole 20 mg capsule,delayed 20 mg PO DAILY 09/09/17 release psyllium seed (sugar) oral powder 1 tbsp PO DAILY 09/09/17 budesonide-formoterol HFA 160 2 puff INHALATION BID 05/21/18 mcg-4.5 mcg/actuation aerosol inhaler cyanocobalamin (vit B-12) 500 mcg 250 mcg PO DAILY@0800 tab 06/08/18 tablet labetalol 200 mg tablet 200 mg PO BID #180 tab 08/17/18 levothyroxine 112 mcg tablet 112 mcg PO QDAY #90 tab 08/17/18 Hydrochlorothiazide [Hctz] 25 mg PO DAILY 08/20/18 Rosuvastatin Calcium 5 mg PO QHS 08/20/18 sertraline 25 mg tablet 25 mg PO LUNCH #90 tab 08/31/18 losartan 100 mg tablet 100 mg PO QHS #90 tab 09/02/18 amlodipine 5 mg tablet 5 mg PO DAILY #90 tab 09/17/18 gabapentin 300 mg capsule 300 mg PO TID #270 cap 09/17/18 clopidogrel 75 mg tablet 75 mg PO DAILY #90 tab 09/20/18 - Allergies Allergies/Adverse Reactions: Allergies amoxicillin [From Augmentin] Adverse Reaction (Intermediate, Verified 09/20/18 13:24) Nausea/Vom/Diarrhea clavulanic acid [From Augmentin] Adverse Reaction (Intermediate, Verified 09/20/18 13:24) Nausea/Vom/Diarrhea lisinopril Adverse Reaction (Intermediate, Verified 09/20/18 13:24) cough atorvastatin [From Lipitor] Adverse Reaction (Verified 09/20/18 13:24) Pain in joints gemfibrozil [From Lopid] Adverse Reaction (Verified 09/20/18 13:24) Pain in joints niacin Adverse Reaction (Verified 09/20/18 13:24) Other HOT FLASHES - Sleep Disorder Evaluation Hx of Sleep Apnea: Yes Do you snore loudly (louder than talking or can be heard through closed doors)?: Yes - has CPAP machine at home, getting used to it. Do you often feel tired/ fatigued/ sleepy during daytime?: No Has anyone observed you stop breathing during sleep?: No History of Hypertension (for STOP score): Yes - sleep study done here at [facility] STOP Results: Positive Advanced Directives - Advanced Directives Power of Cap Inspector: Yes Living Will: Yes Advance Directives on File: Yes DNR Order?:: No - MOLST See MOLST form: No Past Medical History - Past Medical Illness Medical History: Past Medical History (Last Updated 09/07/18 @ 20:10 by Nel Mcarthur) Pre-operative cardiovascular exam, new EKG abnormalities c/w ischemia (Acute) Z01.810, R94.31 Premature ventricular contractions (Acute) I49.3 Screening for intestinal cancer (Acute) Z12.10 Hearing loss (Chronic) H91.90 Nonrheumatic tricuspid (valve) insufficiency (Chronic) I36.1 Mild (1+) per echo 11/26/2016. RVSP 35 mmhg. Hypothyroidism (Chronic) E03.9 Atherosclerotic heart disease of [place] coronary artery without angina pectoris (Chronic) I25.10 CAMERON (2.5 X 38 Promus Synergy) to mid LAD; CAMERON (2.5 X 12 Promus Synergy) to Diagonal per Dr. Eaton @ [facility] 09/07/2018 Malaise and fatigue (Acute) R53.81, R53.83 Hypertension (Chronic) I10 Hypertension (Chronic) I10 Gastroesophageal reflux disease (Chronic) K21.9 Hyperlipidemia (Chronic) E78.5 Arthritis M19.90 Hay fever J30.1 Shoulder pain M25.519 Crohns disease K50.90 - Past Surgical History Surgical History: Past Surgical History (Last Reviewed 09/20/18 @ 13:25 by Sapna Carranza) Stented coronary artery (Chronic) Onset Date: 09/07/18 Z95.5 CAMERON (2.5 X 38 Promus Synergy) to mid LAD; CAMERON (2.5 X 12 Promus Synergy) to Diagonal per Dr. Eaton @ [facility] History of left heart catheterization (Chronic) Onset Date: 03/21/14 Z98.890 Nonobstructive CAD, <25% in septal neurology manager and ramus, per Dr. Dunn @ [facility] eye lesion removal H/O hemorrhoidectomy Z98.890 1989 H/O vasectomy Z98.52 1972 History of prostate surgery Z98.890 2009 & 2015 Hx of appendectomy Z98.890, Z90.49 ruptured appendix, 1993 Surgical History: - - Family History Summary Family History: Family History (Last Reviewed 09/20/18 @ 13:25 by Sapna Carranza) Grandfather CVA (cerebral vascular accident) Depression Brother COPD (chronic obstructive pulmonary disease) Grandmother Depression Son Arthritis Father Arthritis CAD (coronary artery disease) Mother Hypertension Hyperlipidemia Pacemaker Other Cancer Social History - Smoking History Smoking Status: Never smoker Hx Tobacco Use: No Hx Smoking Exposure: No - Alcohol Use Alcohol Usage: No - not for 55 years - Substance Abuse Hx Substance Use: No - Occupation Occupation (List type of work in comments):: Retired - in 1996 and held a partt [employer] job for 5 years, now fully retired. - Hobbies, Recreation, Social Activities Hobbies: Other - lawn work, gardening, mowing lawn. Recreational Activities: I am able to engage in all my recreational activities Social Environment - Status Marital Status: - Current Living Arrangements Living Environment:: Spouse - Children How many children do you have?: 3 Do any of your children live nearby?: Yes - 2 in [place] area - Safety Do you feel safe in your surroundings?: Yes - Assistance Do you need any assistance at home?: none Review of Systems - Review of Systems Hints: Right click = Denies (Slash). Left click = Reports (Nice) Review of Present Symptoms: Reports: Shortness of Breath with Exertion - a little bit, Dizziness/Lightheadedness - a little bit; often times when standing up from sitting or laying position, Fatigue - takes a nap daily, Heart Arrhythmia/Irregularities - irregular rhythm lsat day or two has had irregular rhythm. H/O PVCs., Appetite - Normal, Appetite - Special Diet - cut out caffeine, tried cutting back on salt still using,, Sleep - Normal. Denies: Shortness of Breath at Rest, Sexual Changes - Pain Is Patient Pain Free?: No Pain Location: lower extremity - right knee and leg pain Risk Factor Assessment - Chief Complaint Chief Complaint: Patient presentst o cardiac rehab today following recent PTCA and coronary stent implant in August 2018. Patient is very [place] and wears bilateral hearing aids. He was to have an occular implant done, but that has been placed on hold due to his recent PCI and blood thinners. - Vital Signs Temperature: 98.7 F Respiratory Rate: 14 Pulse Ox: 96 Blood Pressure: 110/64 Nailbeds:: pink - Pulse Pulse Rate: 58 Pulse Rhythm: Regular - Hypertension How long have you been treated?: 15 On medication(s)?: yes Blood Pressure Sitting - Left Arm: 110/64 - Blood Cholesterol/Lipids Total Cholesterol (mg/dL) Goal = less than 200 mg/dL: 131 HDL Cholesterol (mg/dL) Goal = less than 40 mg/dL: 36 LDL Cholesterol (mg/dL) Goal = less than 70 mg/dL: 62 Triglycerides (mg/dL) Goal = less than 150 mg/dL: 163 - Diabetes Nutrition Referral for Diabetes: No - Obesity Height: 5 ft 8 in Weight:: 185 lb Weight in Pounds: 185.0 lbs Weight Source: Estimated by Patient Body Mass Index (BMI): 28.1 Nutritional Referral for Obesity: No - Physical Inactivity Physical Inactivity: None - Risk Stratification Risk Guidelines: Lowest Risk: Risk Factor for Smoking, Risk Factor for Dyslipidemia, Risk Factor for Diabetes, Risk Factor for Hypertension, Risk Fa ctor for Sedentary Lifestyle, Risk Factor for Depression, Moderate Risk: Risk Factor for Obesity - For Smoking Smoking Risk Guidelines: Smoking Low Risk: None or quit greater than 6 months ago. Smoking Moderate Risk: Smoker or quit 6 months or less ago. Smoking High Risk: Smoker - For Dyslipidemia Dyslipidemia Risk Guidelines: Low Risk: Moderate Risk: High Risk: 15-25% fat 25.1-29% fat >/= 30% fat. <7% sat fat 7-9% sat fat >9% sat fat. <150 mg chol 150-299 mg chol >/= 300 mg chol. LDL <100 LDL 100-129 LDL >/= 130. Chol/HDL ratio <5.0 Chol/HDL ratio 5.0-6.0 Chol/HDL ratio >6.0. Triglycerides <100 Triglycerides 100-149 Triglycerides >/= 150 - For Diabetes Mellitus Diabetes Risk Guidelines: Diabetes Low Risk: HgA1c <6.5% and/or FBG <120. Diabetes Moderate Risk: HgA1c 6.6-7.9% and/or FBG 120-180. Diabetes High Risk: HgA1c >/= 8% and/or FBG >180 - For Obesity/Overweight Obesity/Overweight Risk Guidelines: Obesity Low Risk: BMI <25.0. Obesity Moderate Risk: BMI 25-29.9. Obesity High Risk: BMI >/= 30.0 - For Hypertension Hypertension Risk Guidelines: Hypertension Low Risk: Systolic <120 and Diastolic <80. Hypertension Moderate Risk: Systolic 120-139 and Diastolic 80-89. Hypertension High Risk: Systolic >/= 140 and Diastolic >/= 90 - For Sedentary Lifestyle Sedentary Lifestyle Risk Guidelines: Sedentary Lifestyle Low Risk: >/= 1,500 kcal/week. Sedentary Lifestyle Moderate Risk: 700-1,499 kcal/week. Sedentary Lifestyle High Risk: < 700 kcal/week - For Depression Depression Risk Guidelines: Depression Low Risk: Not clinically depressed. Depression Moderate Risk: Mildly depressed. Depression High Risk: Clinically depressed - Family History Family History: Family History (Last Reviewed 09/20/18 @ 13:25 by Sapna Carranza) Grandfather CVA (cerebral vascular accident) Depression Brother COPD (chronic obstructive pulmonary disease) Grandmother Depression Son Arthritis Father Arthritis CAD (coronary artery disease) Mother Hypertension Hyperlipidemia Pacemaker Other Cancer Motivation - Motivation to Participate On a scale of 1 to 10, how prepared are you to commit to attending program?: 10 What do you see as barriers to successfully being able to complete the program?: a little problem with pain in his right hip. What do you see as the benefits of succesfully completing the program? In other words, what do you hope to get out of participating in the program?: be more healthy, live a few more years, control BP, and be more active Are there issues you are dealing with that will interfere with completing the program?: none Do you have a spouse or signficant other, family or friends who will help support you to complete the program?: yes.
[2018-10-05 10:26] VITALS: BP 110/64; PULSE 58; RESP 14; TEMP 37.1; O2SAT 96; BMI 28.1
--- NOTE | 2018-10-05 11:29 | CR.ITP_ITS ---
General Information - General Information Admitting Diagnosis: PCI w/stent - Education/Goals Barriers to Learning: Hearing Impairment - Acute hearing loss bilaterally Individual Counseling: Initial Assessment: Abnormal Cholesterol Levels, High Blood Pressure, Overweight/Obesity Cardiac Rehabilitation Goals: 1. Maintain the individual as the primary focus of care. 2. To improve the patient's quality of life. 3. Identification of cardiac risk factors and provide cardiac risk factor management. 4. Enhance the psychosocial status of the patient. 5. Reconditioning enough to allow the patient to resume customary activities. 6. Control symptoms of cardiac disease Scale for measuring improvement of personal goals: Enter appropriate number in Comments. 2 = Unchanged. 3 = Slightly Better. 4 = Moderate Improvement. 5 = Met my Goal Personal Goals: Initial Assessment: Improve energy level, Participate in home exercise program, Improve knowledge of cardiac disease, Improve muscle strength and endurance, Improve diet and eating habits (eat healthier), Control risk factors (learn risk factor modification) Exercise - Initial Assessment - Visit Date of Eval: 10/05/18 - start 10/08/18 Session #:: 0 - Stages of Change Stages of Change:: Action - Exercise Prescription Mode:: Treadmill, Rower, Airdyne, NuStep Angina with exercise?: No Target Heart Rate:: 102-110 - Hypertension Do any of the following apply?: Yes Resting Blood Pressure:: 110/64 - Intervention Home Exercise/Activity Goal:: Sitting Time <3 hrs/day - Education Goals:: Warm-up, RPE LANE Scale, S/S, Safe Exercise, Self-Monitoring - Exercise Program Goals Exercise Program Goals: Aerobic Activity >30 min, B/P <130/80 Nutrition - Initial Assessment - Program Goals Nutrition Program Goals: LDL <70. Total Cholesterol <200. HDL >45. Triglycerides <150. HgbA1C <7%. BMI <25 - Visit Date of Assessment:: 10/05/18 - Stages of Change Stages of Change:: Action - Lipids Total Cholesterol (mg/dL) Goal = less than 200 mg/dL: 131 HDL Cholesterol (mg/dL) Goal = less than 45 mg/dL: 36 LDL Cholesterol (mg/dL) Goal = less than 70 mg/dL: 62 Triglycerides (mg/dL) Goal = less than 150 mg/dL: 163 - Diabetes Diabetes:: No - Weight Management Height: 5 ft 8 in Weight:: 185 lb Body Fat %:: 28.1 - Intervention Referral to dietitian:: No Referral to Diabetic Clinic:: No Will attend diet classes:: Yes - Education Gave educational materials for:: Healthy eating Tobacco - Initial Assessment - Program Goals Tobacco Program Goals: Complete smoking cessation. Attend education classes. Improve Knowledge Test score - Stage of Change Stages of Change:: Action - Learning Barriers Learning Barriers: Hearing - acute hearing loss bilaterally; wears hearing aids, Ready to Learn - Family Support Do you have family support?: Yes - Tobacco Use Tobacco Use: Non-smoker Do you use smokeless tobacco?: No - Intervention Smoking Cessation Referral:: No Individual Education/Counseling:: No Education Schedule Given:: Yes - Education Gave educational material for:: Coronary artery disease, Risk factors, Sexuality, Medical compliance, Cardiac A&P, Angina signs & symptoms Psychosocial - Initial Assess - Target Goals Target Goals: Assess presence or absence of depression. Using a valid screening tool, maximizes coping skills. Positive support system - Stages of Change Stages of Change:: Action - Psychosocial Test Tool Used:: HANDS Depression Questionnaire - Intervention PS - Interventions: Yes Attend Stress Management Classes, Yes Uses Stress M anagement Skills, No Referral to Mental Health, No Referral to [facility] Case Management, No Referral to Physician - Education Gave educational materials for:: Coping techniques, Signs & symptoms of depression, Stress management, Relaxation techniques - Patient/Program Goal Preventative Medication(s):: Aspirin, Clopidogrel, Beta hannah, Statin/lipid - Assistive Devices Assistive Devices:: None Fall Risk Assessed:: Yes Patient Health Questionnaire Initial Assessment 1. Little interest or pleasure in doing things: Not at all 2. Feeling down, depressed, or hopeless: Not at all 3. Trouble falling or staying asleep, or sleeping too much: Not at all 4. Feeling tired or having little energy: More than half the days 5. Poor appetite or overeating: Nearly every day 6. Feeling bad about yourself -- or that you are a failure or have let yourself or your family down: Not at all 7. Trouble concentrating on things, such as reading the newspaper or watching television: Not at all 8. Moving or speaking so slowly that other people could have noticed. Or the opposite - being so fidgety or restless that you have been moving around a lot more than usual: Not at all 9. Thoughts that you would be better off , or of hurting yourself in some way: Not at all How difficult have these problems made it for you to do your work, take care of things at home, or get along with other people?: Not difficult at all Total Score: 5 MALVIN-Q SV Test - Statements CAD is a disease of the arteries in the heart: False Examples of risk factors for heart disease: True Angina is chest pain or discomfort: True The benefits of resistance training include: True Eating more meat and dairy products: False Anti-platelet medications such as aspirin are important: True The only effective way to manage stress: False An exercise warm-up slowly increases heart rate: True Prepared, processed foods usually have high sodium: True Depression is common after a heart attack: I Don't Know The statin medications lower cholesterol: True To control blood pressure, lower the amount of sodium: True If someone gets chest discomfort during walking: False Transfats are partially hydrogenated vegetable oils: True Sleep apnea that is not treated increases the risk: False To control cholesterol, one should become a vegetarian: False Someone knows if he/she is exercising at the right level: I Don't Know Diabetes cannot be prevented with exercise & health eating: False Stress is a large risk for heart attack: True A diet that can help lower blood pressure is rich in: True - Total Score Total Correct Responses: 18 Self-Efficacy Initial Assessment We would like to know how confident you are in doing certain activities. Please select your confidence level for:: Select your confidence level for the following using the scale 1-10 where 1 is not at all confident and 10 is totally confident. Your score is the average of all 6 responses. Fatigue: How confident are you that you can keep the fatigue caused by your disease from interfering with the things you want to do? Select Number: 10 Physical Discomfort or Pain: How confident are you that you can keep the physical discomfort or pain of your disease from interfering with the things you want to do? Select Number: 10 Emotional Distress: How confident are you that you can keep the emotional distress caused by your disease from interfering with the things you want to do? Select Number: 10 Other Symptoms or Health Problems: How confident are you that you can keep other symptoms or health problems from interfering with the things you want to do? Select Number: 7 Different Tasks and Activities: How confident are you that you can do the different tasks and activities needed to manage your health condition so as to reduce your need to see a doctor? Select Number: 8 Medication: How confident are you that you can do things other than just taking medication to reduce how much your illness affects your everyday life? Select Number: 9 Total Score:: 9 Nutrition Survey - Nutrition Survey Instructions Scoring Instructions: Scoring is as follows: Yes = 1 points. No = 0 point. Patient score that is >/=12 is considered to be at potential nutritional risk and could benefit from a referral to a registered dietitian. - Nutrition Survey Initial Have you lost >10 lbs over the past 2 months without trying?: No Are you following a special diet at home for diabetes, low fat, or low salt?: No Are you interested in meeting with a dietitian for help understanding your diet?: Yes Do you eat less than 3 meals a day?: No Do you eat fatty meats (lisa, sausage, ribs, etc), fried foods, desserts, large amounts of salad dressings, margarine, butter, or cheese most days?: Yes Do you have food allergies? [Enter types in comment field]: No Do you eat in restaurants more than 3 times a week?: No Do you season food with salt, seasoning salt, or garlic salt?: Yes Do you used canned, boxed, frozen meals, or soups, seasoning packets?: No Total Score:: 3
[2018-10-05 11:31] VITALS: BP 110/64
== END ==
PROVIDERS: Family Provider Internal Medicine; PCP Internal Medicine; Referring Provider Internal Medicine Cardiovascular Disease; Visit Provider Internal Medicine Cardiovascular Disease
DX: Z95.5 Presence of coronary angioplasty implant and graft (principal)

== ENCOUNTER 2018-10-18 10:15 | Outpatient (RCR) | payer MEDICARE, OTHER, SELFPAY ==
[2018-09-08 08:47] VITALS: BMI 28.0
[2018-10-05 10:26] VITALS: BMI 28.1
== END 2018-10-21 23:59 ==
LOC: CR 10:15
PROVIDERS: Family Provider Internal Medicine; PCP Internal Medicine; Referring Provider Internal Medicine Cardiovascular Disease; Visit Provider Internal Medicine Cardiovascular Disease
DX: I49.3 Ventricular premature depolarization (principal); I25.10 Atherosclerotic heart disease of native coronary artery without angina pectoris; Z95.5 Presence of coronary angioplasty implant and graft
CPT/HCPCS: 93798

== ENCOUNTER 2018-10-30 10:42 | Inpatient (IN) | payer MEDICARE, OTHER, SELFPAY ==
[2018-09-08 08:47] VITALS: BMI 28.0
[2018-10-05 10:26] VITALS: BMI 28.1
[2018-10-30] VITALS (13 sets, daily range): BP systolic 126–152; BP diastolic 71–85; PULSE 61–94; RESP 10–20; TEMP 36.5–36.8; O2SAT 93–97; BMI 28.1; BMI 28.0
--- NOTE | 2018-10-30 10:52 | EKG12_ITS ---
Test Reason : CP Blood Pressure : / mmHG Vent. Rate : 071 BPM Atrial Rate : 071 BPM P-R Int : 170 ms QRS Dur : 102 ms QT Int : 364 ms P-R-T Axes : 061 -66 054 degrees QTc Int : 395 ms Normal sinus rhythm Left anterior fascicular block Abnormal ECG Confirmed by KAYLA ANTONIO, LEE ([id number]), editor in chief JERAMIE REAL ([id number]) on 11/02/2018 8:26:26 AM Referred By: Kike Eaton Confirmed By:LEE GARZA MD
--- NOTE | 2018-10-30 10:52 | RAD_ITS ---
STUDY: X-RAY CHEST REASON FOR EXAM: Male, 77 years old. Chest pain TECHNIQUE: AP COMPARISON: 09/03/2018 FINDINGS: EKG leads project over the chest. No airspace consolidation. Minimal fibrotic changes in the lung bases, left more than right, stable. There is no demonstrated pleural abnormality. Normal size heart. Normal mediastinum and tati. Normal visualized pulmonary arteries. There is atherosclerotic calcification of the aortic arch with tortuosity. No acute bony process. There is no demonstrated abnormality of the visualized soft tissue structures of the upper abdomen. RAD/Chest 1 View (Portable) IMPRESSION: Stable, nonacute portable x-ray examination of the chest. Electronically Signed: Bryant Davis MD at 11:13 EST , Service support ,
--- NOTE | 2018-10-30 10:53 | ED.VISSUMM ---
- ER Visit Summary Date of Service: 10/30/18 Chief Complaint: Chest pain History of Present Illness: The patient is a 77 M who has had intermittent chest pain since yesterday. He describes a dull squeezing pain in the left parasternal area that radiated to the left arm and left jaw today. Happened throughout the night but then it went away. When he woke up this morning it started again. It does not seem to be related to exertion. However, at cardiac rehab earlier in the week he did have some pain. He had 2 stents placed on September 07. He has been in cardiac rehab since then. He sees Dr. Eaton. He is on aspirin and Plavix Physical Examination: Vital signs reviewed. HEENT exam unremarkable. Heart is regular rate and rhythm without murmurs. Lungs are clear to auscultation. Abdomen is soft and nontender. Extremities reveal no edema. Peripheral pulses are equal. Skin exam normal. Neurologic exam normal. Test Results: EKG is sinus rhythm with rate of 71. Left anterior fascicular block is noted. Chest x-ray reveals chronic changes. Laboratory studies unremarkable except for sodium of 132. Emergency Department Course and Treatment: The patient was given aspirin. His MATIAS score is 4. I talked with Dr. Estrada since he just had stents approximately 2 months ago. He states that since his pain is more frequent he should be admitted to the hospital for a rule out. I discussed with the hospitalist for admission. Treatment Plan: [] Disposition: Admit to PCU Impression: Chest pain, history of coronary artery disease This note was generated with [employer] dictation software. It may contain incorrect words, spelling, and punctuation that were not noted in review of the chart prior to signing ED Disposition - Plan for ED Patient: Referrals: Tania Jackson MD [Primary Care Provider] -
[2018-10-30] MEDS: Aspirin 81 MG TAB.CHEW 324 MG PO (11:07)
[2018-10-30 11:33] LABS: Absolute Lymphocyte Count 0.54 X10^3/ul (0.83-4.51); Absolute Neutrophil Count 4.2 X10^3/uL (2.0-7.7); Basophil# 0.01 X10^3/uL; Basophil% 0.2 % (0-1); Eosinophil# 0.21 X10^3/uL; Eosinophils% 3.8 % (0-5); Hematocrit 45.7 % (40-54); Hemoglobin 15.9 g/dl (13.0-16.5); Lymphocyte # 0.54 X10^3/ul (4.0); Lymphocyte % 9.6 % (19-41); Mean Corp Hgb Conc 34.8 g/gl (32-36); Mean Corpuscular Hgb 32.4 pg (27.0-32.0); Mean Corpuscular Volume 93.3 fL (80-94); Mean Platelet Vol. 8.5 fl (6.2-12.0); Monocyte# 0.61 X10^3/uL; Monocyte% 10.9 % (0-10); Neutrophil # 4.22 X10^3/uL (2.7-7.7); Neutrophil % 75.3 % (47-70); Platelet Count 247 K/mm3 (150-450); RBC Distribution Width SD 40.7 fl (35.1-43.9); White Blood Count 5.6 K/mm3 (4.4-11.0)
[2018-10-30 11:34] LABS: Differential Indicated SCAN CRITERIA MET; POSITIVE COUNT NO; POSITIVE DIFFERENTIAL YES; POSITIVE MORPHOLOGY NO
[2018-10-30 11:37] LABS: Anion Gap 7 (5-15); BUN 19 mg/dL (7-18); BUN/Creat Ratio 19.6 RATIO (10-20); Calcium,Total 8.4 mg/dL (8.5-10.1); Chloride 99 mmol/L (98-107); Creatinine, Serum 0.97 mg/dL (0.70-1.30); EST Glomerular Filtration Rate 80 mL/min (>60); Est Glom Filt Rate - Afr Amer 96 mL/min (>60); Estimated Creatinine Clearance 62.68 ml/min; Glucose 119 mg/dL (74-106); Potassium 3.9 mmol/L (3.5-5.1); Sodium Level 132 mmol/L (136-145)
[2018-10-30 11:58] LABS: Reactive Lymphocyte 1+
[2018-10-30 11:59] LABS: Platelet Estimate ADEQUATE (ADEQ); Red Cell Morphology NORM C+C NORMAL (NORM C&C)
--- NOTE | 2018-10-30 13:56 | EKG12_ITS ---
Test Reason : CP REPEAT Blood Pressure : / mmHG Vent. Rate : 074 BPM Atrial Rate : 074 BPM P-R Int : 150 ms QRS Dur : 106 ms QT Int : 356 ms P-R-T Axes : 059 -68 060 degrees QTc Int : 395 ms Normal sinus rhythm Left anterior fascicular block Abnormal ECG When compared with ECG of 30-OCT-2018 14:41, MANUAL COMPARISON REQUIRED, DATA IS UNCONFIRMED Confirmed by KAYLA ANTONIO, LEE ([id number]), book or script editor JERAMIE REAL ([id number]) on 11/04/2018 8:58:16 AM Referred By: Kike Eaton Confirmed By:LEE GARZA MD
[2018-10-30] MEDS: Heparin Injection (Vial) 5,000 UNIT/ML VIAL 5000 UNIT SC ×2 (16:25→22:00)
--- NOTE | 2018-10-30 17:02 | STE_ITS ---
Reason For Study: Chest Pain Stress Results Protocol: Jese Protocol Maximum Predicted HR: 144 bpm Target HR: 122 bpm % Maximum Predicted HR: 87 % DurationHeart Rate Stage (mm:ss) (bpm) BP Comment Baseline 71 140/80No Chest Pain Jese Protocol Stage I 3:00 102 152/74No Chest Pain Jese Protocol Stage II 3:00 125 160/72Mild Chest Pain Recovery 88 118/70No Chest Pain Stress Duration: 6:00 mm:ss Maximum Stress HR: 125 bpm METS: 7 Baseline Echocardiogram Findings Stress Echo Wall motion Data Resting WM Intermediate WM Stress WM Resting Wall Motion Wall Motion Stress Mid-Inferior: Mildly hypokinetic. No regional wall motion All segments Normal. abnormalities noted. Interpretation Summary Exercise stress echo. Resting EKG demonstrates normal sinus rhythm with a rate of 71 bpm normal intervals are noted resting blood pressure 140/80 mmHg. The patient exercised according to regular Jese protocol for total duration of 6 minutes the maximum heart rate attained was 127 bpm which was 88% of maximum predicted heart rate the maximum workload was 7 metabolic equivalents. The patient maintained sinus rhythm throughout the recording. At rest there were ST changes noted with no meet the criteria for ischemia peak exercise upsloping ST changes were noted with no meet the criteria for ischemia resting blood pressure 140/80 mmHg with a peak blood pressure 160/72 mmHg. Good blood pressure response to exercise was noted minimal chest discomfort was noted at peak exercise which was suggestive but not diagnostic of angina. Stress echo: Resting echocardiographic images demonstrated overall preserved left ventricular systolic function. There is minimal mid inferior hypokinesis present. The estimated ejection fraction is 55%. The patient exercised and at peak exercise the peak ejection fraction was noted to be 65% with improvement in all william. No wall motion of normality was noted to suggest angina. There was wall thickening and chamber contractility noted throughout. The test was terminated due to leg fatigue. Conclusion: Normal resting echocardiographic with mild mid inferior hypokinesis and normal stress echocardiographic images. No ischemia noted Ordering Physician: Paintsil, Bronte Referring Physician: Celso Thomas Performed By: Nirmala Haley RDCS
--- NOTE | 2018-10-30 17:03 | PCM.HP.STD ---
Problem List (1) Stented coronary artery Status: Chronic Comment: CAMERON (2.5 X 38 Promus Synergy) to mid LAD; CAMERON (2.5 X 12 Promus Synergy) to Diagonal per Dr. Eaton @ [facility] (2) EH (obstructive sleep apnea) Status: Chronic (3) Hearing loss Status: Chronic Qualifiers: Hearing loss type: unspecified (4) Hypothyroidism Status: Chronic Qualifiers: Hypothyroidism type: unspecified Qualified Code(s): E03.9 - Hypothyroidism, unspecified (5) Hypertension Status: Chronic Qualifiers: Hypertension type: essential hypertension Qualified Code(s): I10 - Essential (primary) hypertension (6) BPH (benign prostatic hyperplasia) Status: Chronic Qualifiers: Lower urinary tract symptom detail: unspecified (7) Restless leg syndrome Status: Chronic (8) Chest pain Status: Chronic Qualifiers: Ischemic chest pain type: unspecified angina pectoris type History of Present Illness Date of Admission: 10/30/18 Chief Complaint: Chest pain - 5 days The patient is a 77 year old M with past medical history of CAD status post stents, hypertension, hyperlipidemia, hypothyroidism, BPH, hearing loss who comes in with complaint of chest pain. Patient last had a cardiac cath with stent placed in August 2018. He has been following up with cardiac rehab. Last Thursday, after cardiac rehab, he experienced substernal chest pain/pressure that is described as pulsating, not associated with diaphoresis or dizziness or palpitations or nausea or vomiting. Lasted for more than an hour and went away. Chest pain recurred 2 days later whilst doing cardiac rehab, lasted for a few seconds and went away. His cardiology office was consulted, recommended stress echo to be done on Thursday. Patient went home and later that night had persistent chest pain, except for some minutes. Recurred again this morning. Denied any orthopnea PND or worsening shortness of breath. Sleeps with a CPAP. Vitals in the ED show temperature of 97.8F, heart rate 74, blood pressure 129/76, respiratory to 20, SPO2 97% on room air. Patient counseled 5.6, hemoglobin 15.9, platelet count 247, sodium 132, potassium 3.9, chloride 99, bicarbonate 26, BUN 19, creatinine 0.97, troponin was negative. EKG showed no acute ST-T changes. Past Medical History Past Medical History (Chronic Problems): Chronic Problems (Last Updated 09/07/18 @ 20:10 by Nel Mcarthur) Chest pain (Chronic) Stented coronary artery (Chronic 09/07/18) CAMERON (2.5 X 38 Promus Synergy) to mid LAD; CAMERON (2.5 X 12 Promus Synergy) to Diagonal per Dr. Eaton @ [facility] EH (obstructive sleep apnea) (Chronic) Hearing loss (Chronic) Nonrheumatic tricuspid (valve) insufficiency (Chronic) Mild (1+) per echo 11/26/2016. RVSP 35 mmhg. Hypothyroidism (Chronic) Atherosclerotic heart disease of [place] coronary artery without angina pectoris (Chronic) CAMERON (2.5 X 38 Promus Synergy) to mid LAD; CAMERON (2.5 X 12 Promus Synergy) to Diagonal per Dr. Eaton @ [facility] 09/07/2018 History of left heart catheterization (Chronic 03/21/14) Nonobstructive CAD, <25% in septal optical fabricator and ramus, per Dr. Dunn @ [facility] Hypertension (Chronic) Epistaxis, recurrent (Chronic) BPH (benign prostatic hyperplasia) (Chronic) Hypertension (Chronic) Long-term current use of high risk medication other than anticoagulant (Chronic) Benign prostate hyperplasia (Chronic) Gastroesophageal reflux disease (Chronic) Hyperlipidemia (Chronic) Restless leg syndrome (Chronic) Medical History: Medical History (Last Updated 09/07/18 @ 20:10 by Nel Mcarthur) Pre-operative cardiovascular exam, new EKG abnormalities c/w ischemia (Acute) Z01.810, R94.31 Premature ventricular contractions (Acute) I49.3 Screening for intestinal cancer (Acute) Z12.10 Hearing loss (Chronic) H91.90 Nonrheumatic tricuspid (valve) insufficiency (Chronic) I36.1 Mild (1+) per echo 11/26/2016. RVSP 35 mmhg. Hypothyroidism (Chronic) E03.9 Atherosclerotic heart disease of [place] coronary artery without angina pectoris (Chronic) I25.10 CAMERON (2.5 X 38 Promus Synergy) to mid LAD; CAMERON (2.5 X 12 Promus Synergy) to Diagonal per Dr. Eaton @ [facility] 09/07/2018 Malaise and fatigue (Acute) R53.81, R53.83 Hypertension (Chronic) I10 Hypertension (Chronic) I10 Gastroesophageal reflux disease (Chronic) K21.9 Hyperlipidemia (Chronic) E78.5 Arthritis M19.90 Hay fever J30.1 Shoulder pain M25.519 Crohns disease K50.90 Allergies amoxicillin [From Augmentin] Adverse Reaction (Intermediate, Verified 10/30/18 10:43) Nausea/Vom/Diarrhea clavulanic acid [From Augmentin] Adverse Reaction (Intermediate, Verified 10/30/18 10:43) Nausea/Vom/Diarrhea lisinopril Adverse Reaction (Intermediate, Verified 10/30/18 10:43) cough atorvastatin [From Lipitor] Adverse Reaction (Verified 10/30/18 10:43) Pain in joints gemfibrozil [From Lopid] Adverse Reaction (Verified 10/30/18 10:43) Pain in joints niacin Adverse Reaction (Verified 10/30/18 10:43) Other HOT FLASHES Home Medications: Ambulatory Orders Medication Instructions Recorded Aspirin [Aspirin, Baby] 81 mg PO QHS 03/20/14 Finasteride [Proscar] 5 mg PO QHS 03/20/14 Magnesium 500 mg PO DAILY 03/20/14 Multivitamins,Therapeutic 1 tab PO DAILY 03/20/14 [Multivitamin] Allergy Shot 1 unit IM QWEEK 08/13/16 Bilberry 375 mg PO QHS 08/13/16 Calcium Carbonate [Calcium] 1,500 mg PO QHS 08/13/16 Cholecalciferol (VIT D3) [Vitamin 2,000 unit PO QHS 08/13/16 D3] Testosterone Cypionate 100 mg IM UD 08/13/16 [Depo-Testosterone] Ubidecarenone [Co Q-10] 30 mg PO QHS 08/13/16 omeprazole 20 mg capsule,delayed 20 mg PO DAILY 09/09/17 release psyllium seed (sugar) oral powder 1 tbsp PO DAILY 09/09/17 budesonide-formoterol HFA 160 2 puff INHALATION BID 05/21/18 mcg-4.5 mcg/actuation aerosol inhaler cyanocobalamin (vit B-12) 500 mcg 250 mcg PO DAILY@0800 tab 06/08/18 tablet Hydrochlorothiazide [Hctz] 25 mg PO DAILY 08/20/18 Rosuvastatin Calcium 5 mg PO QHS 08/20/18 Amlodipine Besylate 5 mg PO DAILY 10/30/18 Clopidogrel Bisulfate [Plavix] 75 mg PO DAILY 10/30/18 Gabapentin [Neurontin] 300 mg PO TID 10/30/18 Labetalol [Trandate (Beta Bruno)] 200 mg PO BID 10/30/18 Levothyroxine Sodium [Synthroid] 112 mcg PO QDAY 10/30/18 Losartan Potassium 100 mg PO QHS 10/30/18 Sertraline HCl [Zoloft] 25 mg PO LUNCH 10/30/18 Surgical History: Surgical History (Last Reviewed 09/20/18 @ 13:25 by Sapna Carranza) Stented coronary artery (Chronic) Onset Date: 09/07/18 Z95.5 CAMERON (2.5 X 38 Promus Synergy) to mid LAD; CAMERON (2.5 X 12 Promus Synergy) to Diagonal per Dr. Eaton @ [facility] History of left heart catheterization (Chronic) Onset Date: 03/21/14 Z98.890 Nonobstructive CAD, <25% in septal optical fabricator and ramus, per Dr. Dunn @ [facility] eye lesion removal H/O hemorrhoidectomy Z98.890 1989 H/O vasectomy Z98.52 1972 History of prostate surgery Z98.890 2009 & 2015 Hx of appendectomy Z98.890, Z90.49 ruptured appendix, 1993 Surgical History: - - Status post appendectomy, status post prostate surgery, status post left heart cath, status post vasectomy, status post CAMERON, post eye surgery x2, status post hemorrhoidectomy Psychiatric History: No pertinent psych hx Lives: Spouse/ Significant Other Smoking Status: Never smoker Tobacco Use: Non-smoker Alcohol: None Drugs: None - *Family History Maternal Family History: Family History (Last Reviewed 09/20/18 @ 13:25 by Sapna Carranza) Grandfather CVA (cerebral vascular accident) Depression Brother COPD (chronic obstructive pulmonary disease) Grandmother Depression Son Arthritis Father Arthritis CAD (coronary artery disease) Mother Hypertension Hyperlipidemia Pacemaker Other Cancer History Items: Heart Disease - Status post pacemaker, Hypertension Paternal Family History: Family History (Last Reviewed 09/20/18 @ 13:25 by Sapna Carranza) Grandfather CVA (cerebral vascular accident) Depression Brother COPD (chronic obstructive pulmonary disease) Grandmother Depression Son Arthritis Father Arthritis CAD (coronary artery disease) Mother Hypertension Hyperlipidemia Pacemaker Other Cancer History Items: Cancer - Basal cell carcinoma, Heart Disease Review of Systems Constitutional: Denies: Anorexia, Chills, Fever, Night Sweats, Weakness, Weight Change Eyes: Denies: Blurred vision, Cataracts, Conjunctivae Inflammation, Double vision, Pain, Redness, Vision Change HEENT: Reports: Difficulty Hearing, Hard of Hearing. Denies: Difficulty Swallowing, Head Aches, Hearing Changes, Sinus Congestion, Sinus Drainage Cardiovascular: Reports: Chest Pain, Chest Tightness. Denies: Claudication, Light Headedness, Orthopnea, Palpitations, Paroxysmal Noc. Dyspnea, Syncope Respiratory: Denies: Cough, Hemoptysis, Shortness of Breath, Shortness of breath at rest, Shortness of breath upon exertion, Sputum production Gastrointestinal: Denies: Abdominal Pain, Nausea, Vomiting Genitourinary: Denies: Dysuria Musculoskeletal: Denies: Joint Pain, Joint stiffness, Joint swelling, Joint Tenderness Skin: Denies: Pruritis, Rash, Wounds Neurological: Denies: Difficulty swallowing, Focal weakness, Numbness, Tingling Psychiatric: Denies: Anxiety, Depression, Homicidal Ideations, Suicidal Ideations Hematologic/ Lymphatic: Denies: Easy Bruising, Easy Bleeding VTE Information - Inpt Only VTE Present on Admission: No VTE Pharm Prophylaxis ordered?: Yes - Physical Exam General: Alert, Oriented x3, Cooperative, No apparent distress HEENT: Atraumatic, PERRLA, EOMI, Normocephalic, - - Hard of hearing Neck: Supple, No JVD, Negative Carotid Bruits Lungs: Clear to auscultation, Normal air movement Cardiovascular: Regular rate, Regular Rhythm, Normal S1, Normal S2, No murmurs Abdomen: Bowel Sounds Present, Soft, Non Tender, Non-Distended, No Hepato-splenomegaly Extremities: No edema, Capillary Refill Less than 3 Seconds Skin: No rashes, No breakdown Musculoskeletal: No Tenderness to Palpation of Joints or Extremities Lymphatic: No Cervical, Supraclavicular, or Inguinal Adenopathy Neurological: Cranial nerves II-XII grossly intact, Neuro grossly intact Psych/Mental Status: Normal Affect, Appropriate Vital Signs Temp Pulse Resp BP Pulse Ox 97.9 F 73 18 126/71 H 94 10/30/18 16:01 10/30/18 16:01 10/30/18 16:01 10/30/18 16:01 10/30/18 16:01 Oxygen Delivery Method Room Air Weight: 83.8 kg Body Mass Index (BMI) 28.0 Laboratory Tests Past 24 Hrs 10/30/18 10/30/18 10/30/18 11:10 11:10 14:10 WBC 5.6 RBC 4.90 Hgb 15.9 Hct 45.7 MCV 93.3 MCH 32.4 H MCHC 34.8 RDW 12.0 RDW Differential 40.7 Plt Count 247 MPV 8.5 Immature Gran % (Auto) 0.200 Neut % (Auto) 75.3 H Lymph % (Auto) 9.6 L [place] % (Auto) 10.9 H Eos % (Auto) 3.8 Baso % (Auto) 0.2 Absolute Neuts (auto) 4.2 Absolute Lymphs (auto) 0.54 L Total Counted Not Reportable Differential Comment Reactive Lymphocytes 1+ Platelet Estimate ADEQUATE RBC Morphology NORM C+C Sodium 132 L Potassium 3.9 Chloride 99 Carbon Dioxide 26.0 Anion Gap 7 BUN 19 H Creatinine 0.97 Estim Creat Clear Calc 62.68 Est GFR (MDRD) Af Amer 96 Est GFR (MDRD) Non-Af 80 BUN/Creatinine Ratio 19.6 Glucose 119 H Calcium 8.4 L Troponin I < 0.015 < 0.015 Assessment/Plan All Active Problems (Last Updated 09/07/18 @ 20:10 by Nel Mcarthur) Pre-operative cardiovascular exam, new EKG abnormalities c/w ischemia (Acute) Premature ventricular contractions (Acute) Screening for intestinal cancer (Acute) Dyspnea on exertion (Acute) Malaise and fatigue (Acute) Dermatitis (Acute) Lower extremity edema (Acute) Ingrown toenail of left foot with infection (Acute) Abnormal nuclear stress test (Resolved) Chest discomfort (Resolved) Dyspnea (Resolved) The patient is a 77 year old M with past medical history of CAD status post stents, hypertension, hyperlipidemia, hypothyroidism, BPH, hearing loss who comes in with complaint of chest pain. 1. Angina, history of CAD status post stent, multiple cardiovascular risk factors, table vitals, troponin x1 is negative, no acute ST-T changes on EKG Plan: Admit to PCU, monitor on telemetry, trend troponins, continue on aspirin, Plavix, beta-bruno, statin, stress echo on Thursday 2. Hypertension, controlled, continue home medication 3. Hyperlipidemia, on statin 4. Hypothyroidism, on levothyroxine 5. BPH, on Proscar 6. Depression, on Zoloft 7. DVT prophylaxis with heparin subcu Code Visit OBSV E&M: [id number] Initial observation care L3
--- NOTE | 2018-10-30 17:07 | HP.PCM_ITS ---
Problem List (1) Stented coronary artery Status: Chronic Comment: CAMERON (2.5 X 38 Promus Synergy) to mid LAD; CAMERON (2.5 X 12 Promus Synergy) to Diagonal per Dr. Eaton @ [facility] (2) EH (obstructive sleep apnea) Status: Chronic (3) Hearing loss Status: Chronic Qualifiers: Hearing loss type: unspecified (4) Hypothyroidism Status: Chronic Qualifiers: Hypothyroidism type: unspecified Qualified Code(s): E03.9 - Hypothyroidism, unspecified (5) Hypertension Status: Chronic Qualifiers: Hypertension type: essential hypertension Qualified Code(s): I10 - Essential (primary) hypertension (6) BPH (benign prostatic hyperplasia) Status: Chronic Qualifiers: Lower urinary tract symptom detail: unspecified (7) Restless leg syndrome Status: Chronic (8) Chest pain Status: Chronic Qualifiers: Ischemic chest pain type: unspecified angina pectoris type History of Present Illness Date of Admission: 10/30/18 Chief Complaint: Chest pain - 5 days The patient is a 77 year old M with past medical history of CAD status post stents, hypertension, hyperlipidemia, hypothyroidism, BPH, hearing loss who comes in with complaint of chest pain. Patient last had a cardiac cath with stent placed in August 2018. He has been following up with cardiac rehab. Last Thursday, after cardiac rehab, he experienced substernal chest pain/pressure that is described as pulsating, not associated with diaphoresis or dizziness or palpitations or nausea or vomiting. Lasted for more than an hour and went away. Chest pain recurred 2 days later whilst doing cardiac rehab, lasted for a few seconds and went away. His cardiology office was consulted, recommended stress echo to be done on Thursday. Patient went home and later that night had persistent chest pain, except for some minutes. Recurred again this morning. Denied any orthopnea PND or worsening shortness of breath. Sleeps with a CPAP. Vitals in the ED show temperature of 97.8F, heart rate 74, blood pressure 129/76, respiratory to 20, SPO2 97% on room air. Patient counseled 5.6, hemoglobin 15.9, platelet count 247, sodium 132, potassium 3.9, chloride 99, bicarbonate 26, BUN 19, creatinine 0.97, troponin was negative. EKG showed no acute ST-T changes. Past Medical History Past Medical History (Chronic Problems): Chronic Problems (Last Updated 09/07/18 @ 20:10 by Nel Mcarthur) Chest pain (Chronic) Stented coronary artery (Chronic 09/07/18) CAMERON (2.5 X 38 Promus Synergy) to mid LAD; CAMERON (2.5 X 12 Promus Synergy) to Diagonal per Dr. Eaton @ [facility] EH (obstructive sleep apnea) (Chronic) Hearing loss (Chronic) Nonrheumatic tricuspid (valve) insufficiency (Chronic) Mild (1+) per echo 11/26/2016. RVSP 35 mmhg. Hypothyroidism (Chronic) Atherosclerotic heart disease of [place] coronary artery without angina pectoris (Chronic) CAMERON (2.5 X 38 Promus Synergy) to mid LAD; CAMERON (2.5 X 12 Promus Synergy) to Diagonal per Dr. 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 Dunn @ [facility] Hypertension (Chronic) Epistaxis, recurrent (Chronic) BPH (benign prostatic hyperplasia) (Chronic) Hypertension (Chronic) Long-term current use of high risk medication other than anticoagulant (Chronic) Benign prostate hyperplasia (Chronic) Gastroesophageal reflux disease (Chronic) Hyperlipidemia (Chronic) Restless leg syndrome (Chronic) Medical History: Medical History (Last Updated 09/07/18 @ 20:10 by Nel Mcarthur) Pre-operative cardiovascular exam, new EKG abnormalities c/w ischemia (Acute) Z01.810, R94.31 Premature ventricular contractions (Acute) I49.3 Screening for intestinal cancer (Acute) Z12.10 Hearing loss (Chronic) H91.90 Nonrheumatic tricuspid (valve) insufficiency (Chronic) I36.1 Mild (1+) per echo 11/26/2016. RVSP 35 mmhg. Hypothyroidism (Chronic) E03.9 Atherosclerotic heart disease of [place] coronary artery without angina pectoris (Chronic) I25.10 CAMERON (2.5 X 38 Promus Synergy) to mid LAD; CAMERON (2.5 X 12 Promus Synergy) to Diagonal per Dr. Eaton @ [facility] 09/07/2018 Malaise and fatigue (Acute) R53.81, R53.83 Hypertension (Chronic) I10 Hypertension (Chronic) I10 Gastroesophageal reflux disease (Chronic) K21.9 Hyperlipidemia (Chronic) E78.5 Arthritis M19.90 Hay fever J30.1 Shoulder pain M25.519 Crohns disease K50.90 Allergies amoxicillin [From Augmentin] Adverse Reaction (Intermediate, Verified 10/30/18 10:43) Nausea/Vom/Diarrhea clavulanic acid [From Augmentin] Adverse Reaction (Intermediate, Verified 10/30/18 10:43) Nausea/Vom/Diarrhea lisinopril Adverse Reaction (Intermediate, Verified 10/30/18 10:43) cough atorvastatin [From Lipitor] Adverse Reaction (Verified 10/30/18 10:43) Pain in joints gemfibrozil [From Lopid] Adverse Reaction (Verified 10/30/18 10:43) Pain in joints niacin Adverse Reaction (Verified 10/30/18 10:43) Other HOT FLASHES Home Medications: Ambulatory Orders Medication Instructions Recorded Aspirin [Aspirin, Baby] 81 mg PO QHS 03/20/14 Finasteride [Proscar] 5 mg PO QHS 03/20/14 Magnesium 500 mg PO DAILY 03/20/14 Multivitamins,Therapeutic 1 tab PO DAILY 03/20/14 [Multivitamin] Allergy Shot 1 unit IM QWEEK 08/13/16 Bilberry 375 mg PO QHS 08/13/16 Calcium Carbonate [Calcium] 1,500 mg PO QHS 08/13/16 Cholecalciferol (VIT D3) [Vitamin 2,000 unit PO QHS 08/13/16 D3] Testosterone Cypionate 100 mg IM UD 08/13/16 [Depo-Testosterone] Ubidecarenone [Co Q-10] 30 mg PO QHS 08/13/16 omeprazole 20 mg capsule,delayed 20 mg PO DAILY 09/09/17 release psyllium seed (sugar) oral powder 1 tbsp PO DAILY 09/09/17 budesonide-formoterol HFA 160 2 puff INHALATION BID 05/21/18 mcg-4.5 mcg/actuation aerosol inhaler cyanocobalamin (vit B-12) 500 mcg 250 mcg PO DAILY@0800 tab 06/08/18 tablet Hydrochlorothiazide [Hctz] 25 mg PO DAILY 08/20/18 Rosuvastatin Calcium 5 mg PO QHS 08/20/18 Amlodipine Besylate 5 mg PO DAILY 10/30/18 Clopidogrel Bisulfate [Plavix] 75 mg PO DAILY 10/30/18 Gabapentin [Neurontin] 300 mg PO TID 10/30/18 Labetalol [Trandate (Beta Bruno)] 200 mg PO BID 10/30/18 Levothyroxine Sodium [Synthroid] 112 mcg PO QDAY 10/30/18 Losartan Potassium 100 mg PO QHS 10/30/18 Sertraline HCl [Zoloft] 25 mg PO LUNCH 10/30/18 Surgical History: Surgical History (Last Reviewed 09/20/18 @ 13:25 by Sapna Carranza) Stented coronary artery (Chronic) Onset Date: 09/07/18 Z95.5 CAMERON (2.5 X 38 Promus Synergy) to mid LAD; CAMERON (2.5 X 12 Promus Synergy) to Diagonal per Dr. Eaton @ [facility] History of left heart catheterization (Chronic) Onset Date: 03/21/14 Z98.890 Nonobstructive CAD, <25% in septal transportation assistant and ramus, per Dr. Dunn @ [facility] eye lesion removal H/O hemorrhoidectomy Z98.890 1989 H/O vasectomy Z98.52 1972 History of prostate surgery Z98.890 2009 & 2015 Hx of appendectomy Z98.890, Z90.49 ruptured appendix, 1993 Surgical History: - - Status post appendectomy, status post prostate surgery, status post left heart cath, status post vasectomy, status post CAMERON, post eye surgery x2, status post hemorrhoidectomy Psychiatric History: No pertinent psych hx Lives: Spouse/ Significant Other Smoking Status: Never smoker Tobacco Use: Non-smoker Alcohol: None Drugs: None - *Family History Maternal Family History: Family History (Last Reviewed 09/20/18 @ 13:25 by Sapna Carranza) Grandfather CVA (cerebral vascular accident) Depression Brother COPD (chronic obstructive pulmonary disease) Grandmother Depression Son Arthritis Father Arthritis CAD (coronary artery disease) Mother Hypertension Hyperlipidemia Pacemaker Other Cancer History Items: Heart Disease - Status post pacemaker, Hypertension Paternal Family History: Family History (Last Reviewed 09/20/18 @ 13:25 by Sapna Carranza) Grandfather CVA (cerebral vascular accident) Depression Brother COPD (chronic obstructive pulmonary disease) Grandmother Depression Son Arthritis Father Arthritis CAD (coronary artery disease) Mother Hypertension Hyperlipidemia Pacemaker Other Cancer History Items: Cancer - Basal cell carcinoma, Heart Disease Review of Systems Constitutional: Denies: Anorexia, Chills, Fever, Night Sweats, Weakness, Weight Change Eyes: Denies: Blurred vision, Cataracts, Conjunctivae Inflammation, Double vision, Pain, Redness, Vision Change HEENT: Reports: Difficulty Hearing, Hard of Hearing. Denies: Difficulty Swallowing, Head Aches, Hearing Changes, Sinus Congestion, Sinus Drainage Cardiovascular: Reports: Chest Pain, Chest Tightness. Denies: Claudication, Light Headedness, Orthopnea, Palpitations, Paroxysmal Noc. Dyspnea, Syncope Respiratory: Denies: Cough, Hemoptysis, Shortness of Breath, Shortness of breath at rest, Shortness of breath upon exertion, Sputum production Gastrointestinal: Denies: Abdominal Pain, Nausea, Vomiting Genitourinary: Denies: Dysuria Musculoskeletal: Denies: Joint Pain, Joint stiffness, Joint swelling, Joint Tenderness Skin: Denies: Pruritis, Rash, Wounds Neurological: Denies: Difficulty swallowing, Focal weakness, Numbness, Tingling Psychiatric: Denies: Anxiety, Depression, Homicidal Ideations, Suicidal Ideations Hematologic/ Lymphatic: Denies: Easy Bruising, Easy Bleeding VTE Information - Inpt Only VTE Present on Admission: No VTE Pharm Prophylaxis ordered?: Yes - Physical Exam General: Alert, Oriented x3, Cooperative, No apparent distress HEENT: Atraumatic, PERRLA, EOMI, Normocephalic, - - Hard of hearing Neck: Supple, No JVD, Negative Carotid Bruits Lungs: Clear to auscultation, Normal air movement Cardiovascular: Regular rate, Regular Rhythm, Normal S1, Normal S2, No murmurs Abdomen: Bowel Sounds Present, Soft, Non Tender, Non-Distended, No Hepato- splenomegaly Extremities: No edema, Capillary Refill Less than 3 Seconds Skin: No rashes, No breakdown Musculoskeletal: No Tenderness to Palpation of Joints or Extremities Lymphatic: No Cervical, Supraclavicular, or Inguinal Adenopathy Neurological: Cranial nerves II-XII grossly intact, Neuro grossly intact Psych/Mental Status: Normal Affect, Appropriate Vital Signs Temp Pulse Resp BP Pulse Ox 97.9 F 73 18 126/71 H 94 10/30/18 16:01 10/30/18 16:01 10/30/18 16:01 10/30/18 16:01 10/30/18 16:01 Oxygen Delivery Method Room Air Weight: 83.8 kg Body Mass Index (BMI) 28.0 Laboratory Tests Past 24 Hrs 10/30/18 10/30/18 10/30/18 11:10 11:10 14:10 WBC 5.6 RBC 4.90 Hgb 15.9 Hct 45.7 MCV 93.3 MCH 32.4 H MCHC 34.8 RDW 12.0 RDW Differential 40.7 Plt Count 247 MPV 8.5 Immature Gran % (Auto) 0.200 Neut % (Auto) 75.3 H Lymph % (Auto) 9.6 L [place] % (Auto) 10.9 H Eos % (Auto) 3.8 Baso % (Auto) 0.2 Absolute Neuts (auto) 4.2 Absolute Lymphs (auto) 0.54 L Total Counted Not Reportable Differential Comment Reactive Lymphocytes 1+ Platelet Estimate ADEQUATE RBC Morphology NORM C+C Sodium 132 L Potassium 3.9 Chloride 99 Carbon Dioxide 26.0 Anion Gap 7 BUN 19 H Creatinine 0.97 Estim Creat Clear Calc 62.68 Est GFR (MDRD) Af Amer 96 Est GFR (MDRD) Non-Af 80 BUN/Creatinine Ratio 19.6 Glucose 119 H Calcium 8.4 L Troponin I < 0.015 < 0.015 Assessment/Plan All Active Problems (Last Updated 09/07/18 @ 20:10 by Nel Mcarthur) Pre-operative cardiovascular exam, new EKG abnormalities c/w ischemia (Acute) Premature ventricular contractions (Acute) Screening for intestinal cancer (Acute) Dyspnea on exertion (Acute) Malaise and fatigue (Acute) Dermatitis (Acute) Lower extremity edema (Acute) Ingrown toenail of left foot with infection (Acute) Abnormal nuclear stress test (Resolved) Chest discomfort (Resolved) Dyspnea (Resolved) The patient is a 77 year old M with past medical history of CAD status post stents, hypertension, hyperlipidemia, hypothyroidism, BPH, hearing loss who comes in with complaint of chest pain. 1. Angina, history of CAD status post stent, multiple cardiovascular risk factors, table vitals, troponin x1 is negative, no acute ST-T changes on EKG Plan: Admit to PCU, monitor on telemetry, trend troponins, continue on aspirin, Plavix, beta-bruno, statin, stress echo on Thursday 2. Hypertension, controlled, continue home medication 3. Hyperlipidemia, on statin 4. Hypothyroidism, on levothyroxine 5. BPH, on Proscar 6. Depression, on Zoloft 7. DVT prophylaxis with heparin subcu Code Visit OBSV E&M: 19016 Initial observation care L3
[2018-10-30] MEDS: Sertraline 50 MG Tablet 25 MG PO (17:57)
[2018-10-30] MEDS: Multivitamins,Therapeutic Tablet 1 TABLET PO (17:57)
[2018-10-30 18:10] LABS: AST(SGOT) 18 U/L (15-37); Alanine Aminotransfer ALT/SGPT 31 U/L (16-61); Albumin, Serum 3.5 g/dL (3.2-5.0); Alkaline Phosphatase 76 U/L (45-117); Bilirubin, Direct 0.25 mg/dL (0.00-0.30); Globulin 3.1 g/dL (2.2-4.2); Protein, Total 6.6 g/dL (6.4-8.2)
--- NOTE | 2018-10-30 19:24 | EKG12_ITS ---
Test Reason : CP ADMISSION Blood Pressure : / mmHG Vent. Rate : 066 BPM Atrial Rate : 066 BPM P-R Int : 152 ms QRS Dur : 104 ms QT Int : 386 ms P-R-T Axes : 072 -62 044 degrees QTc Int : 404 ms Normal sinus rhythm Left anterior fascicular block Abnormal ECG When compared with ECG of 30-OCT-2018 10:43, MANUAL COMPARISON REQUIRED, DATA IS UNCONFIRMED Confirmed by KAYLA ANTONIO, LEE ([id number]), loan expeditor JERAMIE REAL ([id number]) on 11/04/2018 9:15:32 AM Referred By: Kike Eaton Confirmed By:LEE GARZA MD
[2018-10-30] MEDS: Albuterol 2.5 MG/3 ML VIAL.NEB. INHALATION (20:41)
[2018-10-30] MEDS: Budesonide Respules 0.5 MG/2 ML AMPUL.NEB. INHALATION (20:41)
[2018-10-30] MEDS: Losartan Potassium 100 MG Tablet PO (21:59)
[2018-10-30] MEDS: Aspirin 81 MG TAB.CHEW PO (21:59)
[2018-10-30] MEDS: Gabapentin 300 MG Capsule PO (21:59)
[2018-10-30] MEDS: Rosuvastatin Calcium 5 MG Tablet PO (21:59)
[2018-10-30] MEDS: amLODIPine 5 MG Tablet PO (22:00)
[2018-10-30] MEDS: Finasteride 5 MG Tablet PO (22:01)
[2018-10-30] MEDS: Labetalol 200 MG Tablet PO (22:01)
[2018-10-30] MEDS: Calcium (Elemental) 500 MG Tablet 1500 MG PO (22:01)
[2018-10-30] MEDS: Mag Hydrox/Al Hydrox/Simeth 30 ML UDC PO (22:08)
[2018-10-31] VITALS (14 sets, daily range): BP systolic 115–147; BP diastolic 69–76; PULSE 71–91; RESP 14–18; TEMP 36.6–36.7; O2SAT 93–95
[2018-10-31 06:27] LABS: Anion Gap 10 (5-15); BUN 18 mg/dL (7-18); Calcium,Total 8.9 mg/dL (8.5-10.1); Chloride 98 mmol/L (98-107); EST Glomerular Filtration Rate 77 mL/min (>60); Est Glom Filt Rate - Afr Amer 93 mL/min (>60); Glucose 100 mg/dL (74-106); Sodium Level 134 mmol/L (136-145)
[2018-10-31] MEDS: Heparin Injection (Vial) 5,000 UNIT/ML VIAL 5000 UNIT SC (06:31)
[2018-10-31] MEDS: Gabapentin 300 MG Capsule PO ×3 (06:31→21:52)
[2018-10-31] MEDS: Levothyroxine 112 MCG Tablet PO (06:31)
[2018-10-31] MEDS: Budesonide Respules 0.5 MG/2 ML AMPUL.NEB. INHALATION ×2 (07:05→20:40)
[2018-10-31] MEDS: Albuterol 2.5 MG/3 ML VIAL.NEB. INHALATION ×3 (07:05→20:30)
--- NOTE | 2018-10-31 07:58 | EKG12_ITS ---
Test Reason : ROUTINE AM Blood Pressure : / mmHG Vent. Rate : 076 BPM Atrial Rate : 076 BPM P-R Int : 152 ms QRS Dur : 102 ms QT Int : 374 ms P-R-T Axes : 053 -61 050 degrees QTc Int : 420 ms Sinus rhythm with occasional Premature ventricular complexes Left anterior fascicular block Abnormal ECG When compared with ECG of 30-OCT-2018 19:36, MANUAL COMPARISON REQUIRED, DATA IS UNCONFIRMED Confirmed by KAYLA ANTONIO, LEE ([id number]), design editor JERAMIE REAL ([id number]) on 11/04/2018 8:57:35 AM Referred By: Kike Eaton Confirmed By:LEE GARZA MD
[2018-10-31] MEDS: Pantoprazole Sodium 20 MG Tablet PO (10:08)
[2018-10-31] MEDS: Clopidogrel Bisulfate 75 MG Tablet PO (10:08)
[2018-10-31] MEDS: Cyanocobalamin 500 MCG Tablet 250 MCG PO (10:08)
[2018-10-31] MEDS: Labetalol 200 MG Tablet PO ×2 (10:08→21:53)
[2018-10-31] MEDS: Magnesium Oxide 400 MG Tablet PO (10:08)
[2018-10-31] MEDS: hydroCHLOROthiazide 25 MG Tablet PO (10:09)
--- NOTE | 2018-10-31 10:15 | PCM.PN.HOSP ---
Subjective: Patient was seen and examined. He had an episode of chest pain yesterday. EKG showed no new ST-T changes. Troponins x 3 negative. He feels well today. Denied any new complains except for bloatedness. Denies chest pain, SOB, palpitations. No events on telemetry. Objective: Physical Exam General: Alert, Oriented x3, Cooperative, No apparent distress HEENT: Atraumatic, PERRLA, EOMI, Normocephalic, - - Hard of hearing Neck: Supple, No JVD, Negative Carotid Bruits Lungs: Clear to auscultation, Normal air movement Cardiovascular: Regular rate, Regular Rhythm, Normal S1, Normal S2, No murmurs Abdomen: Bowel Sounds Present, Soft, Non Tender, Non-Distended, No Hepato-splenomegaly Extremities: No edema, Capillary Refill Less than 3 Seconds Skin: No rashes, No breakdown Musculoskeletal: No Tenderness to Palpation of Joints or Extremities Lymphatic: No Cervical, Supraclavicular, or Inguinal Adenopathy Neurological: Cranial nerves II-XII grossly intact, Neuro grossly intact Psych/Mental Status: Normal Affect, Appropriate Vitals/I&O's: Vital Signs Temp Pulse Resp BP Pulse Ox 98.0 F 82 16 116/69 95 10/31/18 10:03 10/31/18 10:03 10/31/18 10:03 10/31/18 10:03 10/31/18 10:03 Oxygen Delivery Method Room Air Weight: 82.4 kg Body Mass Index (BMI) 28.0 Intake and Output for Last 24 Hours 10/29/18 10/30/18 10/31/18 23:59 23:59 23:59 Intake Total 120 / 120 Balance 120 / 120 Laboratory Results 10/30/18 11:10: WBC 5.6, RBC 4.90, Hgb 15.9, Hct 45.7, MCV 93.3, MCH 32.4 H, MCHC 34.8, RDW 12.0, RDW Differential 40.7, Plt Count 247, MPV 8.5, Immature Gran % (Auto) 0.200, Neut % (Auto) 75.3 H, Lymph % (Auto) 9.6 L, [place] % (Auto) 10.9 H, Eos % (Auto) 3.8, Baso % (Auto) 0.2, Absolute Neuts (auto) 4.2, Absolute Lymphs (auto) 0.54 L, Total Counted Not Reportable, Differential Comment , Reactive Lymphocytes 1+, Platelet Estimate ADEQUATE, RBC Morphology NORM C+C 10/30/18 11:10: Sodium 132 L, Potassium 3.9, Chloride 99, Carbon Dioxide 26.0, Anion Gap 7, BUN 19 H, Creatinine 0.97, Estim Creat Clear Calc 62.68, Est GFR (MDRD) Af Amer 96, Est GFR (MDRD) Non-Af 80, BUN/Creatinine Ratio 19.6, Glucose 119 H, Calcium 8.4 L, Troponin I < 0.015 10/30/18 14:10: Troponin I < 0.015 10/30/18 17:17: Total Bilirubin 0.90, Direct Bilirubin 0.25, AST 18, ALT 31, Alkaline Phosphatase 76, Troponin I < 0.015, Total Protein 6.6, Albumin 3.5, Globulin 3.1 10/31/18 05:30: Sodium 134 L, Potassium 4.0, Chloride 98, Carbon Dioxide 26.0, Anion Gap 10, BUN 18, Creatinine 1.00, Estim Creat Clear Calc 60.80, Est GFR (MDRD) Af Amer 93, Est GFR (MDRD) Non-Af 77, BUN/Creatinine Ratio 18.0, Glucose 100, Calcium 8.9 Current Medications Albuterol Sulfate (Ventolin Aerosols) 2.5 mg INHALATION Q6HWA.RT [facility] Last Admin: 10/31/18 07:05 Dose: 2.5 mg Amlodipine Besylate (Norvasc) 5 mg PO QHS [facility] Last Admin: 10/30/18 22:00 Dose: 5 mg Aspirin (Aspirin, Baby) 81 mg PO QHS [facility] Last Admin: 10/30/18 21:59 Dose: 81 mg Bisacodyl (Dulcolax) 5 mg PO DAILY PRN PRN PRN Reason: Constipation Budesonide (Pulmicort Aerosol) 0.5 mg INHALATION Q12H.RT [facility] Last Admin: 10/31/18 07:05 Dose: 0.5 mg Calcium Carbonate (Os-Filiberto 500) 1,500 mg PO QHS [facility] Last Admin: 10/30/18 22:01 Dose: 1,500 mg Cholecalciferol (Vitamin D) 2,000 unit PO QHS [facility] Last Admin: 10/30/18 22:02 Dose: 2,000 unit Clopidogrel Bisulfate (Plavix) 75 mg PO DAILY [facility] Last Admin: 10/31/18 10:08 Dose: 75 mg Cyanocobalamin (Vitamin B12) 250 mcg PO DAILY@0800 [facility] Last Admin: 10/31/18 10:08 Dose: 250 mcg Finasteride (Proscar) 5 mg PO QHS [facility] Last Admin: 10/30/18 22:01 Dose: 5 mg Gabapentin (Neurontin) 300 mg PO TID [facility] Last Admin: 10/31/18 06:31 Dose: 300 mg Heparin Sodium (Porcine) (Heparin Na) 5,000 unit SC Q8 [facility] Last Admin: 10/31/18 06:31 Dose: 5,000 unit Hydrochlorothiazide (Hctz) 25 mg PO DAILY [facility] Last Admin: 10/31/18 10:09 Dose: 25 mg Labetalol HCl (Trandate) 200 mg PO BID [facility] Last Admin: 10/31/18 10:08 Dose: 200 mg Levothyroxine Sodium (Synthroid) 112 mcg PO DAILY@0600 [facility] Last Admin: 10/31/18 06:31 Dose: 112 mcg [facility] Admin: 10/30/18 21:59 Dose: 100 mg Magnesium Hydroxide (Milk Of Magnesia) 30 ml PO DAILY PRN PRN Reason: Constipation Magnesium Oxide (Mag-Ox 400) 400 mg PO DAILY [facility] Last Admin: 10/31/18 10:08 Dose: 400 mg Multivitamins (Multivitamin) 1 tablet PO DAILY@1700 [facility] Last Admin: 10/30/18 17:57 Dose: 1 tablet Nitroglycerin (Nitrostat) 0.4 mg SUBLINGUAL Q5M PRN PRN Reason: CHEST PAIN Ondansetron HCl (Zofran) 4 mg IV Q8H PRN PRN PRN Reason: NAUSEA Pantoprazole Sodium (Protonix) 20 mg PO DAILY [facility] Last Admin: 10/31/18 10:08 Dose: 20 mg Psyllium Hydrophilic Mucilloid (Metamucil) 1 packet PO DAILY PRN PRN PRN Reason: CONSTIPATION Rosuvastatin Calcium (Crestor) 5 mg PO QHS [facility] Last Admin: 10/30/18 21:59 Dose: 5 mg Sertraline HCl (Zoloft) 25 mg PO LUNCH [facility] Last Admin: 10/30/18 17:57 Dose: 25 mg Sodium Chloride () 5 - 15 ml IV UD PRN PRN Reason: SALINE FLUSH Medical Necessity - Tobacco Use Smoking Status: Never smoker Tobacco Use: Non-smoker Assessment/Plan All Active Problems (Last Updated 09/07/18 @ 20:10 by Nel Mcarthur) Pre-operative cardiovascular exam, new EKG abnormalities c/w ischemia (Acute) Premature ventricular contractions (Acute) Screening for intestinal cancer (Acute) Dyspnea on exertion (Acute) Malaise and fatigue (Acute) Dermatitis (Acute) Lower extremity edema (Acute) Ingrown toenail of left foot with infection (Acute) Abnormal nuclear stress test (Resolved) Chest discomfort (Resolved) Dyspnea (Resolved) The patient is a 77 year old M with past medical history of CAD status post stents, hypertension, hyperlipidemia, hypothyroidism, BPH, hearing loss who comes in with complaint of chest pain. 1. Angina, history of CAD status post stent, multiple cardiovascular risk factors, EKG is unremarkable, troponins x 3 negative Stress ECHO in am, continue on aspirin, Plavix, beta-hannah, statin, 2. Hypertension, controlled, continue home medication 3. Hyperlipidemia, on statin 4. Hypothyroidism, on levothyroxine 5. BPH, on Proscar 6. Depression, on Zoloft 7. DVT prophylaxis with heparin subcu Code Visit Inpatient E&M: 16272 Subs Hosp L2
[2018-10-31] MEDS: Sertraline 50 MG Tablet 25 MG PO (12:09)
[2018-10-31] MEDS: Multivitamins,Therapeutic Tablet 1 TABLET PO (18:05)
[2018-10-31] MEDS: Aspirin 81 MG TAB.CHEW PO (21:52)
[2018-10-31] MEDS: Losartan Potassium 100 MG Tablet PO (21:52)
[2018-10-31] MEDS: Calcium (Elemental) 500 MG Tablet 1500 MG PO (21:53)
[2018-10-31] MEDS: Rosuvastatin Calcium 5 MG Tablet PO (21:53)
[2018-10-31] MEDS: amLODIPine 5 MG Tablet PO (21:53)
[2018-10-31] MEDS: Finasteride 5 MG Tablet PO (21:54)
[2018-11-01] VITALS (7 sets, daily range): BP systolic 121–138; BP diastolic 74–78; PULSE 70–82; RESP 14–18; TEMP 36.4–36.6; O2SAT 93–96
[2018-11-01] MEDS: Clopidogrel Bisulfate 75 MG Tablet PO (05:29)
[2018-11-01] MEDS: Levothyroxine 112 MCG Tablet PO (05:29)
[2018-11-01] MEDS: Gabapentin 300 MG Capsule PO (05:29)
[2018-11-01 05:48] LABS: Absolute Lymphocyte Count 0.66 X10^3/ul (0.83-4.51); Absolute Neutrophil Count 4.2 X10^3/uL (2.0-7.7); Basophil# 0.01 X10^3/uL; Basophil% 0.2 % (0-1); Eosinophil# 0.22 X10^3/uL; Eosinophils% 3.9 % (0-5); Hematocrit 46.8 % (40-54); Lymphocyte # 0.66 X10^3/ul (4.0); Lymphocyte % 11.6 % (19-41); Mean Corp Hgb Conc 34.2 g/gl (32-36); Mean Corpuscular Hgb 31.8 pg (27.0-32.0); Mean Platelet Vol. 8.5 fl (6.2-12.0); Monocyte# 0.63 X10^3/uL; Monocyte% 11.1 % (0-10); Neutrophil # 4.15 X10^3/uL (2.7-7.7); Platelet Count 261 K/mm3 (150-450); RBC Distribution Width CV 12.1 % (11.6-14.6); RBC Distribution Width SD 40.8 fl (35.1-43.9); Red Blood Count 5.03 M/mm3 (4.6-6.2); White Blood Count 5.7 K/mm3 (4.4-11.0)
--- NOTE | 2018-11-01 05:55 | EKG12_ITS ---
Test Reason : Blood Pressure : / mmHG Vent. Rate : 072 BPM Atrial Rate : 072 BPM P-R Int : 148 ms QRS Dur : 104 ms QT Int : 382 ms P-R-T Axes : 057 -63 053 degrees QTc Int : 418 ms Normal sinus rhythm Left anterior fascicular block Abnormal ECG When compared with ECG of 31-OCT-2018 08:04, MANUAL COMPARISON REQUIRED, DATA IS UNCONFIRMED Confirmed by KAYLA ANTONIO, LEE ([id number]), order editor JERAMIE REAL ([id number]) on 11/04/2018 8:50:18 AM Referred By: Kike Eaton Confirmed By:LEE GARZA MD
[2018-11-01 05:57] LABS: International Normalized Ratio 0.9; Prothrombin Time (Protime)PT. 12.6 SECONDS (11.7-14.9)
[2018-11-01 05:58] LABS: Partial Thromboplast Time 40.8 Seconds (24.1-36.2)
[2018-11-01 06:00] LABS: Anion Gap 10 (5-15); BUN 21 mg/dL (7-18); BUN/Creat Ratio 21.3 RATIO (10-20); Calcium,Total 8.9 mg/dL (8.5-10.1); Chloride 97 mmol/L (98-107); Creatinine, Serum 0.98 mg/dL (0.70-1.30); EST Glomerular Filtration Rate 79 mL/min (>60); Est Glom Filt Rate - Afr Amer 95 mL/min (>60); Estimated Creatinine Clearance 62.04 ml/min; Glucose 104 mg/dL (74-106); Potassium 3.8 mmol/L (3.5-5.1); Sodium Level 134 mmol/L (136-145)
[2018-11-01 06:24] LABS: POSITIVE COUNT NO; POSITIVE DIFFERENTIAL NO; POSITIVE MORPHOLOGY NO
[2018-11-01] MEDS: Budesonide Respules 0.5 MG/2 ML AMPUL.NEB. INHALATION (07:47)
[2018-11-01] MEDS: Albuterol 2.5 MG/3 ML VIAL.NEB. INHALATION (07:47)
[2018-11-01] MEDS: Magnesium Oxide 400 MG Tablet PO (10:15)
[2018-11-01] MEDS: hydroCHLOROthiazide 25 MG Tablet PO (10:15)
[2018-11-01] MEDS: Cyanocobalamin 500 MCG Tablet 250 MCG PO (10:15)
[2018-11-01] MEDS: Labetalol 200 MG Tablet PO (10:15)
[2018-11-01] MEDS: Pantoprazole Sodium 20 MG Tablet PO (10:15)
--- NOTE | 2018-11-01 10:22 | DCINST_ITS ---
- Discharge Diagnoses Current Active Problems: Current Active and Chronic Problems (Last Updated 09/07/18 @ 20:10 by Nel Mcarthur) Chest pain (Chronic) Reason(s) for Visit for Discharge Instructions: Chest pain You will use the following diet at home:: Cardiac Your food should be the consistency of: Regular Your liquids should be the consistency of: Regular/Thin Discharge Activity: Return to Normal Activity Allergies/Adverse Reactions: Allergies amoxicillin [From Augmentin] Adverse Reaction (Intermediate, Verified 10/30/18 10:43) Nausea/Vom/Diarrhea clavulanic acid [From Augmentin] Adverse Reaction (Intermediate, Verified 10/30/18 10:43) Nausea/Vom/Diarrhea lisinopril Adverse Reaction (Intermediate, Verified 10/30/18 10:43) cough atorvastatin [From Lipitor] Adverse Reaction (Verified 10/30/18 10:43) Pain in joints gemfibrozil [From Lopid] Adverse Reaction (Verified 10/30/18 10:43) Pain in joints niacin Adverse Reaction (Verified 10/30/18 10:43) Other HOT FLASHES Medications to take at Discharge Aspirin [Aspirin, Baby] 81 mg PO QHS 03/20/14 Finasteride [Proscar] 5 mg PO QHS 03/20/14 Magnesium 500 mg PO DAILY 03/20/14 Multivitamins,Therapeutic [Multivitamin] 1 tab PO DAILY 03/20/14 Allergy Shot 1 unit IM QWEEK 08/13/16 Bilberry 375 mg PO QHS 08/13/16 Calcium Carbonate [Calcium] 1,500 mg PO QHS 08/13/16 Cholecalciferol (VIT D3) [Vitamin D3] 2,000 unit PO QHS 08/13/16 Testosterone Cypionate [Depo-Testosterone] 100 mg IM UD 08/13/16 Ubidecarenone [Co Q-10] 30 mg PO QHS 08/13/16 omeprazole 20 mg capsule,delayed release 20 mg PO DAILY 09/09/17 psyllium seed (sugar) oral powder 1 tbsp PO DAILY 09/09/17 budesonide-formoterol HFA 160 mcg-4.5 mcg/actuation aerosol inhaler 2 puff INHALATION BID 05/21/18 cyanocobalamin (vit B-12) 500 mcg tablet 250 mcg PO DAILY@0800 tab 06/08/18 Hydrochlorothiazide [Hctz] 25 mg PO DAILY 08/20/18 Rosuvastatin Calcium 5 mg PO QHS 08/20/18 Amlodipine Besylate 5 mg PO DAILY 10/30/18 Clopidogrel Bisulfate [Plavix] 75 mg PO DAILY 10/30/18 Gabapentin [Neurontin] 300 mg PO TID 10/30/18 Labetalol [Trandate (Beta Bruno)] 200 mg PO BID 10/30/18 Levothyroxine Sodium [Synthroid] 112 mcg PO QDAY 10/30/18 Losartan Potassium 100 mg PO QHS 10/30/18 Sertraline HCl [Zoloft] 25 mg PO LUNCH 10/30/18 Primary Care Physician: Tania Jackson MD [Primary Care Provider] - Please follow up with your Primary Care Physician in: in 1-2 weeks Test Results: Test results from this visit will be discussed in further detail at your follow- up appointment, if applicable. Please Follow Up With: Kike Eaton MD When: within 1-2 weeks Proposed Discharge Date: 11/01/18
--- NOTE | 2018-11-01 10:22 | PCM.DC.SUM ---
Discharge Date and Diagnosis Date of Admission: 10/30/18 Date of Discharge: 11/01/18 - Primary Discharge Diagnosis Chest pain - Secondary Discharge Diagnosis Chronic Problems (Last Updated 09/07/18 @ 20:10 by Nel Mcarthur) Chest pain (Chronic) Stented coronary artery (Chronic 09/07/18) CAMERON (2.5 X 38 Promus Synergy) to mid LAD; CAMERON (2.5 X 12 Promus Synergy) to Diagonal per Dr. Eaton @ [facility] EH (obstructive sleep apnea) (Chronic) Hearing loss (Chronic) Nonrheumatic tricuspid (valve) insufficiency (Chronic) Mild (1+) per echo 11/26/2016. RVSP 35 mmhg. Hypothyroidism (Chronic) Atherosclerotic heart disease of [place] coronary artery without angina pectoris (Chronic) CAMERON (2.5 X 38 Prom[employer]nergy) to mid LAD; CAMERON (2.5 X 12 Promus Synergy) to Diagonal per Dr. 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 Dunn @ [facility] Hypertension (Chronic) Epistaxis, recurrent (Chronic) BPH (benign prostatic hyperplasia) (Chronic) Hypertension (Chronic) Long-term current use of high risk medication other than anticoagulant (Chronic) Benign prostate hyperplasia (Chronic) Gastroesophageal reflux disease (Chronic) Hyperlipidemia (Chronic) Restless leg syndrome (Chronic) Hospital Course and Treatment Imaging Results: Clinical Impression(s) from Imaging Studies Chest X-Ray 10/30/18 10:52 IMPRESSION: Stable, nonacute portable x-ray examination of the chest. Electronically Signed: Bryant Davis MD at 11:13 EST , Service support , None Operations: None Procedures: Stress test Summary of Care Provided: The patient is a 77 year old M with past medical history of CAD status post stents, hypertension, hyperlipidemia, hypothyroidism, BPH, hearing loss who comes in with complaint of chest pain. EKG was unremarkable. Troponins x2 was negative. Patient was managed on the telemetry with no acute events. He underwent a stress echo that was reportedly normal. He was continued on aspirin, Plavix, beta-bruno, statin. He was discharged on Imdur. Patient was told to continue with cardiac rehab. He will follow-up with Dr. Eaton within 1-2 weeks. Subjective: The day of discharge, patient was seen and examined. No new complaints. He felt better. - Physical Exam General: Alert, Oriented x3, Cooperative, No apparent distress HEENT: Atraumatic, PERRLA, EOMI, Normocephalic Neck: Supple, No JVD, Negative Carotid Bruits Lungs: Clear to auscultation, Normal air movement Cardiovascular: Regular rate, Regular Rhythm, Normal S1, Normal S2, No murmurs Abdomen: Bowel Sounds Present, Soft, Non Tender, Non-Distended, No Hepato-splenomegaly Extremities: No edema Skin: No rashes, No breakdown Musculoskeletal: No Tenderness to Palpation of Joints or Extremities Lymphatic: No Cervical, Supraclavicular, or Inguinal Adenopathy Neurological: Cranial nerves II-XII grossly intact Psych/Mental Status: Normal Affect, Appropriate Vital Signs Temp Pulse Resp BP Pulse Ox 97.6 F L 82 16 121/74 H 94 11/01/18 10:10 11/01/18 10:10 11/01/18 10:10 11/01/18 10:10 11/01/18 10:10 Oxygen Delivery Method Room Air Weight: 82.1 kg Body Mass Index (BMI) 28.0 Intake and Output for Last 24 Hours 10/30/18 10/31/18 11/01/18 23:59 23:59 23:59 Intake Total 120 / 120 400 / 400 Balance 120 / 120 400 / 400 Laboratory Tests Past 24 Hrs 11/01/18 11/01/18 11/01/18 05:20 05:20 05:20 WBC 5.7 RBC 5.03 Hgb 16.0 Hct 46.8 MCV 93.0 MCH 31.8 MCHC 34.2 RDW 12.1 RDW Differential 40.8 Plt Count 261 MPV 8.5 Immature Gran % (Auto) 0.200 Neut % (Auto) 73.0 H Lymph % (Auto) 11.6 L [place] % (Auto) 11.1 H Eos % (Auto) 3.9 Baso % (Auto) 0.2 Absolute Neuts (auto) 4.2 Absolute Lymphs (auto) 0.66 L Total Counted Not Reportable PT 12.6 INR 0.9 APTT 40.8 H Sodium 134 L Potassium 3.8 Chloride 97 L Carbon Dioxide 27.0 Anion Gap 10 BUN 21 H Creatinine 0.98 Estim Creat Clear Calc 62.04 Est GFR (MDRD) Af Amer 95 Est GFR (MDRD) Non-Af 79 BUN/Creatinine Ratio 21.3 H Glucose 104 Calcium 8.9 Discharge Diet: Low fat/ Low Cholesterol, 2000 mg Sodium Diet Discharge Activity: Return to Normal Activity Home Medications: Medications to take at Discharge Aspirin [Aspirin, Baby] 81 mg PO QHS 03/20/14 Finasteride [Proscar] 5 mg PO QHS 03/20/14 Magnesium 500 mg PO DAILY 03/20/14 Multivitamins,Therapeutic [Multivitamin] 1 tab PO DAILY 03/20/14 Allergy Shot 1 unit IM QWEEK 08/13/16 Bilberry 375 mg PO QHS 08/13/16 Calcium Carbonate [Calcium] 1,500 mg PO QHS 08/13/16 Cholecalciferol (VIT D3) [Vitamin D3] 2,000 unit PO QHS 08/13/16 Testosterone Cypionate [Depo-Testosterone] 100 mg IM UD 08/13/16 Ubidecarenone [Co Q-10] 30 mg PO QHS 08/13/16 omeprazole 20 mg capsule,delayed release 20 mg PO DAILY 09/09/17 psyllium seed (sugar) oral powder 1 tbsp PO DAILY 09/09/17 budesonide-formoterol HFA 160 mcg-4.5 mcg/actuation aerosol inhaler 2 puff INHALATION BID 05/21/18 cyanocobalamin (vit B-12) 500 mcg tablet 250 mcg PO DAILY@0800 tab 06/08/18 Hydrochlorothiazide [Hctz] 25 mg PO DAILY 08/20/18 Rosuvastatin Calcium 5 mg PO QHS 08/20/18 Amlodipine Besylate 5 mg PO DAILY 10/30/18 Clopidogrel Bisulfate [Plavix] 75 mg PO DAILY 10/30/18 Gabapentin [Neurontin] 300 mg PO TID 10/30/18 Labetalol [Trandate (Beta Bruno)] 200 mg PO BID 10/30/18 Levothyroxine Sodium [Synthroid] 112 mcg PO QDAY 10/30/18 Losartan Potassium 100 mg PO QHS 10/30/18 Sertraline HCl [Zoloft] 25 mg PO LUNCH 10/30/18 Isosorbide Mononitrate [Imdur] 30 mg PO DAILY #30 tablet 11/01/18 Following Prescrptions Were Given to Patient: Isosorbide Mononitrate [Imdur] 30 mg PO DAILY #30 tablet Primary Care Physician: Tania Jackson MD [Primary Care Provider] - Please follow up with your Primary Care Physician in: in 1-2 weeks Please Follow Up With: Kike Eaton MD When: within 1-2 weeks Disposition: Home Minutes spent on discharge:: 40 Patient Condition:: Stable Medical Necessity - Tobacco Use Smoking Status: Never smoker Tobacco Use: Non-smoker Meaningful Use Info Meaningful Use Diagnoses (Choose all that apply): None applicable Code Visit Inpatient E&M: 64839 Disch Hosp
--- NOTE | 2018-11-01 11:09 | CASEMGMT ---
JULITO MONTOYA assessment: Face to Face with patient for initial transition planning/care coordination assessment. JULITO MONTOYA introduced self and role at [facility], pt voices understanding and consents to assessment at this time. Pt is sitting up in chair in no distress at this time. Pt is A/Ox4 at this time and answers all questions appropriately at this time. Pt is hearing impaired and wears hearing aides. Pt states was scheduled to have cochlear implant placed tomorrow but will now have to wait a year d/t heart/blood thinners. Care providers, pharmacy, and demographics verified/updated at this time. PCP: Renetta Specialists: Angelito cardio; Kristofer pulm; Ignacio uro; Elan, ENT; Yasmin, chiro Preferred Pharmacy: [facility]; [facility] Insurance: [facility] A/B, [employer] Prescription Benefit: [facility] Living Will/HPOA: Pt states that he does have LW/HPOA and they are currently on file at [facility] at this time. Pt states that his , Radha Miner, is HPOA. LNOK: Radha Miner, ; Burak Miner, son Living Arrangements: Pt states lives with in 1 story home with 2 steps in and states no concerns at home at this time. Pt states is independent with ADL's. Transportation: Pt states drives self and no transportation concerns at this time. DME/HHC: Pt states has grab bars in the shower, tub bench, and cpap. Pt states no need for any further DME at this time. Pt states no hx of HHC or SNF in the past. Pt states no concerns with going home at time of discharge. Pt is retired. Pt states does not smoke or drink ETOH. Pt states no further questions/concerns at this time. CM to follow for any further discharge planning/needs. Advised pt to ask for CM if any further questions/concerns/needs arise, voices understanding. Plan: [place] JULITO MONTOYA
== END 2018-11-01 12:02 | disposition home or self-care (01) | DRG 313 ==
LOC: ED 11:35 → PCU 13:19
PROVIDERS: Admitting Provider Internal Medicine; Emergency Provider Emergency Medicine; Family Provider Internal Medicine; PCP Internal Medicine; Visit Provider Internal Medicine
DX: R07.9 Chest pain, unspecified (principal); E78.5 Hyperlipidemia, unspecified; E03.9 Hypothyroidism, unspecified; F32.9 Major depressive disorder, single episode, unspecified; I10 Essential (primary) hypertension; N40.0 Benign prostatic hyperplasia without lower urinary tract symptoms; G47.33 Obstructive sleep apnea (adult) (pediatric); H91.90 Unspecified hearing loss, unspecified ear; K21.9 Gastro-esophageal reflux disease without esophagitis; G25.81 Restless legs syndrome; I25.10 Atherosclerotic heart disease of native coronary artery without angina pectoris; Z95.5 Presence of coronary angioplasty implant and graft; Z79.899 Other long term (current) drug therapy
CPT/HCPCS: 36415; 71045; 80048; 80076; 84484; 85025; 85610; 85730; 93005; 93017; 93350; 93798; 94640; 99282; A4216

== ENCOUNTER 2018-11-12 06:50 | Day surgery (SDC) | payer MEDICARE, OTHER, SELFPAY ==
[2018-09-08 08:47] VITALS: BMI 28.0
[2018-11-10 13:29] VITALS: BMI 28.3
[2018-11-11 09:57] VITALS: BMI 28.3
--- NOTE | 2018-11-12 09:07 | CL.D_ITS ---
Patient Name: IMANI MORA Study Date: 11/12/2018 Performing: Celso Thomas MD Ht: 68.11 inches 173 cm : 1940 Wt: 185.19 lbs 84 kg Age: 77 Gender: male BSA: 1.98 PROCEDURE(S) PERFORMED NE45-TZF/COR/LV CLINICAL PROFILE AND INDICATIONS Indications: Suspected CAD Heart Failure: None Stress/Imaging Stress/Image Study Performed: No CAD Presentations: Stable angina. CONCLUSIONS Previously placed stent in the left anterior descending artery is patent as well as in the diagonal v essel is patent. There is moderate disease noted in the mid left anterior descending artery. RECOMMENDATIONS Medical therapy DESCRIPTION OF PROCEDURE The patient arrived to the procedure lab. The risks and benefits of the procedure as well as a full d escription of our services here and current unavailability of surgical backup were fully explained to the patient and/or their significant other prior to the catheterization. The Timeout was completed, verifying the correct patient and procedure. The patient's procedural site was prepped and draped in the usual fashion. Local anesthetic was given subcutaneously to right radial region with Lidocaine 2% . Using a modified Seldinger technique, arterial access was obtained via the right radial artery, a 6 Fr sheath was inserted. Right Coronary Artery selective angiography was then performed in multiple v iews using a 5 Fr. 4.0 Brunswick catheter. Left Coronary Artery selective angiography was performed in mu ltiple views using a 5 Fr. 4.0 [place] catheter.The arterial sheath was pulled and a TR Band was applie d for hemostasis 15cc air CORONARY ANGIOGRAPHY DOMINANCE: Right Dominant LEFT HEART ASSESSMENT Normal LV wall motion Normal Left Ventricular systolic function LEFT MAIN: Angiographically normal LEFT ANTERIOR DECENDING ARTERY: MID LAD: Previously placed stent is patent, 30 % Stenosis DIAGONAL 1: Proximal - Previously placed stent is patent RIGHT CORONARY ARTERY: Angiographically normal COMPLICATIONS No Complications PROCEDURE MEDICATIONS Fentanyl 50 mcg IV Versed 1 mg IV Oxygen: 2 L/min via nasal cannula Heparin diluted in 23cc Heparinized saline. Patient given 10cc IA of this solution. 11/12/2018 08:36: 28 Verapamil 2.5mg, Ntg 100mcgs, 2000 units of Heparin diluted in 23cc Heparinized saline. Patient give n 10cc IA of this solution. 11/12/2018 08:36:28 IV Fluids: .9 NaCl increased to 150 ml/hr 11/12/2018 08:39:16 SUMMARY OF HEMODYNAMIC DATA Time AIR REST ECG 07:17:20 AO 87/47 (65) SA 08:38:48 LV 110/0, 16 08:52:12 LV 109/1, 17 08:52:18 LV 96/0, 16 08:54:19 LVp 100/0, 16 08:54:26 AOp 105/47 (71) 08:54:31 Signed By Celso Thomas MD On 11/12/2018 09:07:00 Celso Thomas MD
== END 2018-11-12 14:24 | disposition home or self-care (01) ==
LOC: CLSP 06:52
PROVIDERS: Family Provider Internal Medicine; PCP Internal Medicine; Referring Provider Internal Medicine Cardiovascular Disease; Visit Provider Internal Medicine Cardiovascular Disease
DX: I25.9 Chronic ischemic heart disease, unspecified (principal); I25.10 Atherosclerotic heart disease of native coronary artery without angina pectoris; I10 Essential (primary) hypertension; E78.5 Hyperlipidemia, unspecified; Z79.82 Long term (current) use of aspirin; G47.33 Obstructive sleep apnea (adult) (pediatric); E03.9 Hypothyroidism, unspecified; K21.9 Gastro-esophageal reflux disease without esophagitis; K50.90 Crohn's disease, unspecified, without complications; Z95.5 Presence of coronary angioplasty implant and graft
CPT/HCPCS: 93458; 99152; 99153; J7040; C1769; C1894; Q9967

== ENCOUNTER 2018-11-17 10:15 | Outpatient (RCR) | payer MEDICARE, OTHER, SELFPAY ==
[2018-09-08 08:47] VITALS: BMI 28.0
[2018-10-05 10:26] VITALS: BMI 28.1
--- NOTE | 2018-11-05 08:26 | PCM.CR.ITP ---
Exercise - 30-day Assessment - Visit Date of Eval: 11/05/18 Session #:: 10 - Stages of Change Stages of Change:: Action - Exercise Prescription Mode:: Treadmill, Rower, Airdyne, NuStep Frequency (x/week): 3 Duration:: 30-45 METs - Progression: 0.5-1 MET as tolerated: 4 Target Heart Rate:: 110-115 - Hypertension Resting Blood Pressure:: 106/50 Peak Exercise Blood Pressure:: 110/60 Medication Changes:: No - Intervention Home Exercise/Activity Goal:: Moderate Exercise 30 min/day x 5 days/wk - Education Goals:: Warm-up, RPE LANE Scale, S/S, Safe Exercise, Self-Monitoring - Exercise Program Goals Exercise Program Goals: Aerobic Activity >30 min Nutrition - 30-Day Assessment - Program Goals Nutrition Program Goals: LDL <70. Total Cholesterol <200. HDL >45. Triglycerides <150. HgbA1C <7%. BMI <25 - Visit Date of Eval: 11/05/18 - Stages of Change Stages of Change:: Action - Diabetes Diabetes:: No Insulin: No Non-Insulin Dependent?: No - Weight Management Weight:: 189 lb 12.8 oz - Intervention Referral to dietitian:: No Referral to Diabetic Clinic:: No Will attend diet classes:: Yes - Education Attended class for:: Healthy eating Tobacco - Initial Assessment - Program Goals Tobacco Program Goals: Complete smoking cessation. Attend education classes. Improve Knowledge Test score - Learning Barriers Learning Barriers: Hearing - acute hearing loss bilaterally; wears hearing aids, Ready to Learn Tobacco - 30-Day Assessment - Program Goals Tobacco Program Goals: Complete smoking cessation. Attend education classes. Improve Knowledge Test score - Stage of Change Stages of Change:: Action - Learning Barriers Learning Barriers: Participates in education - Family Support Do you have family support?: Yes - Tobacco Use Tobacco Use: Non-smoker Do you use smokeless tobacco?: No - Intervention Smoking Cessation Referral:: No Individual Education/Counseling:: No Education Schedule Given:: Yes - Education Attended class for:: Coronary artery disease, Risk factors, Sexuality, Medical compliance, Cardiac A&P, Angina signs & symptoms Psychosocial - Initial Assess - Target Goals Target Goals: Assess presence or absence of depression. Using a valid screening tool, maximizes coping skills. Positive support system - Psychosocial Test Tool Used:: HANDS Depression Questionnaire - Assistive Devices Fall Risk Assessed:: Yes Psychosocial - 30-Day Assess - Target Goals Target Goals: Assess presence or absence of depression. Using a valid screening tool, maximizes coping skills. Positive support system - Stages of Change Stages of Change:: Action - Psychosocial Test Tool Used:: HANDS Depression Questionnaire - Intervention PS - Interventions: Yes Attend Stress Management Classes, Yes Uses Stress Management Skills, No Referral to Mental Health, No Referral to [facility] Case Management, No Referral to Physician - Education Attended classes for:: Coping techniques, Signs & symptoms of depression, Stress management, Relaxation techniques - Patient/Program Goal Preventative Medication(s):: Aspirin, Clopidogrel, Beta hannah, Statin/lipid - Assistive Devices Assistive Devices:: None Fall Risk Assessed:: Yes Patient Health Questionnaire 30-Day Re-eval Assessment 1. Little interest or pleasure in doing things: Not at all 2. Feeling down, depressed, or hopeless: Not at all 3. Trouble falling or staying asleep, or sleeping too much: Not at all 4. Feeling tired or having little energy: Several days 5. Poor appetite or overeating: Several days 6. Feeling bad about yourself -- or that you are a failure or have let yourself or your family down: Not at all 7. Trouble concentrating on things, such as reading the newspaper or watching television: Several days 8. Moving or speaking so slowly that other people could have noticed. Or the opposite - being so fidgety or restless that you have been moving around a lot more than usual: Not at all 9. Thoughts that you would be better off , or of hurting yourself in some way: Not at all How difficult have these problems made it for you to do your work, take care of things at home, or get along with other people?: Not difficult at all Total Score: 3 Self-Efficacy 30-Day Re-eval Assessment We would like to know how confident you are in doing certain activities. Please select your confidence level for:: Select your confidence level for the following using the scale 1-10 where 1 is not at all confident and 10 is totally confident. Your score is the average of all 6 responses. Fatigue: How confident are you that you can keep the fatigue caused by your disease from interfering with the things you want to do? Select Number: 10 Physical Discomfort or Pain: How confident are you that you can keep the physical discomfort or pain of your disease from interfering with the things you want to do? Select Number: 10 Emotional Distress: How confident are you that you can keep the emotional distress caused by your disease from interfering with the things you want to do? Select Number: 10 Other Symptoms or Health Problems: How confident are you that you can keep other symptoms or health problems from interfering with the things you want to do? Select Number: 9 Different Tasks and Activities: How confident are you that you can do the different tasks and activities needed to manage your health condition so as to reduce your need to see a doctor? Select Number: 10 Medication: How confident are you that you can do things other than just taking medication to reduce how much your illness affects your everyday life? Select Number: 10 Total Score:: 9
[2018-11-05 08:33] VITALS: BP 106/50; BP 110/60
== END 2018-11-18 23:59 ==
LOC: CR 10:15
PROVIDERS: Family Provider Internal Medicine; PCP Internal Medicine; Referring Provider Internal Medicine Cardiovascular Disease; Visit Provider Internal Medicine Cardiovascular Disease
DX: I25.10 Atherosclerotic heart disease of native coronary artery without angina pectoris (principal); I49.3 Ventricular premature depolarization; Z95.5 Presence of coronary angioplasty implant and graft
CPT/HCPCS: 93798

== ENCOUNTER → 2018-12-03 08:36 | Outpatient (CLI) | payer MEDICARE, OTHER, SELFPAY ==
[2018-09-08 08:47] VITALS: BMI 28.0
[2018-11-30 09:57] VITALS: BMI 28.3
--- NOTE | 2018-12-03 08:40 | AAAS_ITS ---
Reason For Study: ECP Aorta Measurements Aorta Doppler Measurements Proximal aorta measures1.90cm x 1.83cm. in cross- Peak systolic flow velocities within the proximal sectional axis. aorta measure 116 cm/sec. Proximal aorta measures2.01cm. in longitudinal Peak systolic flow velocities within the mid aorta axis. measure 101 cm/sec. Mid aorta measures1.88cm x 1.79cm. in cross- Peak systolic flow velocities within the distal sectional axis. aorta measure 117 cm/sec. Mid aorta measures1.81cm. in longitudinal axis. Distal aorta measures1.55cm x 1.71cm. in cross- sectional axis. Distal aorta measures1.55cm. in longitudinal axis. Left Iliac Artery Left iliac artery measures 1.15cm x 1.05 cm. in the cross-sectional axis. Left iliac artery measures 1.21 cm. in the longitudinal axis. Peak systolic velocity in the left iliac artery measures 154 cm/sec. Right Iliac Artery Right iliac artery measures 0.92cm x 0.87 cm. in the cross-sectional axis. Right iliac artery measures 1.0 cm. in the longitudinal axis. Peak systolic velocity in the right iliac artery measures 118 cm/sec. Procedure Aorta IVC Iliac vasculature or bypass grafts [id number]. Exam performed in department. Interpretation Summary Maximal abdominal aortic diameter proximally at 1.9 x 1.83cm Minimally elevated aortic velocities greater than 100cc/min consistent with mild occlusive disease Right common iliac 0.92 x 0.87 cm Left common iliac 1.15 x 1.05 cm Ordering Physician: Kike Eaton Referring Physician: Tania Jackson Performed By: Brandee Lauren, RDCS, RVT
== END ==
PROVIDERS: Family Provider Internal Medicine; PCP Internal Medicine; Referring Provider Internal Medicine Cardiovascular Disease; Visit Provider Internal Medicine Cardiovascular Disease
DX: I25.118 Atherosclerotic heart disease of native coronary artery with other forms of angina pectoris (principal); R07.9 Chest pain, unspecified; Z95.5 Presence of coronary angioplasty implant and graft
CPT/HCPCS: 76706; 93798

== ENCOUNTER → 2018-12-16 11:04 | Outpatient (CLI) | payer MEDICARE, OTHER, SELFPAY ==
[2018-09-08 08:47] VITALS: BMI 28.0
[2018-12-16 10:39] VITALS: BMI 27.5
[2018-12-16 11:09] LABS: Bacteria 0 SEEN /hpf (None Seen); Mucous, Urine 0 SEEN /hpf (<or=2+); Red Blood Cells-Urine 0 SEEN /hpf (0-5); White Blood Cells 0 SEEN /hpf (0-5)
[2018-12-16 12:31] LABS: Color, Urine Yellow (Yellow); Glucose, Dipstick Normal (Normal); Ketone-Dipstick Negative (Negative); Leukocyte Esterase-Dipstick 25 /ul (Negative); Nitrite-Dipstick Negative (Negative); Occult Blood-Urine Negative /ul (Negative); Protein-Dipstick Negative (Negative); Urine Bilirubin Dipstick Negative (Negative); Urine Clarity Sl. Cloudy (Clear); Urine Urobilinogen Normal (Normal)
[2018-12-16 12:47] LABS: Squamous Epithelial Cells - UA 0-5 SEEN /hpf (0-5)
== END ==
PROVIDERS: Family Provider Internal Medicine; PCP Internal Medicine; Visit Provider Nurse Practitioner Family
DX: R31.9 Hematuria, unspecified (principal)
CPT/HCPCS: 81001

== ENCOUNTER 2018-12-17 09:00 | Outpatient (RCR) | payer MEDICARE, OTHER, SELFPAY ==
[2018-09-08 08:47] VITALS: BMI 28.0
[2018-11-30 09:57] VITALS: BMI 28.3
--- NOTE | 2018-12-03 11:46 | PCM.CR.ITP ---
General Information - General Information Admitting Diagnosis: pci w/stenting - Education/Goals Barriers to Learning: None Cardiac Rehabilitation Goals: 1. Maintain the individual as the primary focus of care. 2. To improve the patient's quality of life. 3. Identification of cardiac risk factors and provide cardiac risk factor management. 4. Enhance the psychosocial status of the patient. 5. Reconditioning enough to allow the patient to resume customary activities. 6. Control symptoms of cardiac disease Scale for measuring improvement of personal goals: Enter appropriate number in Comments. 2 = Unchanged. 3 = Slightly Better. 4 = Moderate Improvement. 5 = Met my Goal Exercise - 60-Day Assessment - Visit Date of Eval: 12/03/18 Session #:: 22 - Stages of Change Stages of Change:: Action - Physician Prescribed Exercise Modalities: Treadmill, Airdyne, NuStep Frequency (days/week): 3 Duration (Minutes):: 30-45 Intensity: 60-80% age predicted maximum heart rate reserve METs - Progression: 0.5-1.0 MET, RPE 11-14 WEEK: 4.5 Target Heart Rate:: 110-115 Max HR 111 - Hypertension Resting Blood Pressure:: 110/58 Peak Exercise Blood Pressure:: 130/72 - Exercise Program Goals Exercise Program Goals: Aerobic Activity >30 min, B/P <130/80 Nutrition - 60-Day Assessment - Program Goals Nutrition Program Goals: LDL <70. Total Cholesterol <200. HDL >45. Triglycerides <150. HgbA1C <7%. BMI <25 - Visit Date of Eval: 12/03/18 - Stages of Change Stages of Change:: Action - Weight Management Weight:: 81.873 kg - Intervention Referral to dietitian:: No Referral to Diabetic Clinic:: No Will attend diet classes:: Yes - Education Attended class for:: Signs & symptoms of hypoglycemia, Signs & symptoms of hyperglycemia, Relate diabetes to coronary artery disease, Healthy eating Tobacco - Initial Assessment - Program Goals Tobacco Program Goals: Complete smoking cessation. Attend education classes. Improve Knowledge Test score - Learning Barriers Learning Barriers: Hearing - acute hearing loss bilaterally; wears hearing aids, Ready to Learn Tobacco - 60-Day Assessment - Program Goals Tobacco Program Goals: Complete smoking cessation. Attend education classes. Improve Knowledge Test score - Stage of Change Stages of Change:: Action - Learning Barriers Learning Barriers: Participates in education - Family Support Do you have family support?: Yes - Tobacco Use Tobacco Use: Non-smoker Do you use smokeless tobacco?: No - Intervention Smoking Cessation Referral:: No Individual Education/Counseling:: No Education Schedule Given:: Yes - Education Attended class for:: Tobacco triggers, Coronary artery disease, Risk factors, Sexuality, Medical compliance, Cardiac A&P, Angina signs & symptoms Psychosocial - Initial Assess - Target Goals Target Goals: Assess presence or absence of depression. Using a valid screening tool, maximizes coping skills. Positive support system - Psychosocial Test Tool Used:: HANDS Depression Questionnaire - Assistive Devices Fall Risk Assessed:: Yes Psychosocial - 60-Day Assess - Target Goals Target Goals: Assess presence or absence of depression. Using a valid screening tool, maximizes coping skills. Positive support system - Stages of Change Stages of Change:: Action - Psychosocial Test Tool Used:: HANDS Depression Questionnaire - Intervention PS - Interventions: Yes Attend Stress Management Classes, Yes Uses Stress Management Skills, No Referral to Mental Health, No Referral to [facility] Case Management, No Referral to Physician - Education Attended classes for:: Coping techniques, Signs & symptoms of depression, Stress management, Relaxation techniques - Assistive Devices Assistive Devices:: None Fall Risk Assessed:: Yes Patient Health Questionnaire 60-Day Re-eval Assessment 1. Little interest or pleasure in doing things: Not at all 2. Feeling down, depressed, or hopeless: Not at all 3. Trouble falling or staying asleep, or sleeping too much: Not at all 4. Feeling tired or having little energy: Several days 5. Poor appetite or overeating: Several days 6. Feeling bad about yourself -- or that you are a failure or have let yourself or your family down: Not at all 7. Trouble concentrating on things, such as reading the newspaper or watching television: Several days 8. Moving or speaking so slowly that other people could have noticed. Or the opposite - being so fidgety or restless that you have been moving around a lot more than usual: Not at all 9. Thoughts that you would be better off , or of hurting yourself in some way: Not at all How difficult have these problems made it for you to do your work, take care of things at home, or get along with other people?: Not difficult at all Total Score: 3 Self-Efficacy 60-Day Re-eval Assessment We would like to know how confident you are in doing certain activities. Please select your confidence level for:: Select your confidence level for the following using the scale 1-10 where 1 is not at all confident and 10 is totally confident. Your score is the average of all 6 responses. Fatigue: How confident are you that you can keep the fatigue caused by your disease from interfering with the things you want to do? Select Number: 10 Physical Discomfort or Pain: How confident are you that you can keep the physical discomfort or pain of your disease from interfering with the things you want to do? Select Number: 10 Emotional Distress: How confident are you that you can keep the emotional distress caused by your disease from interfering with the things you want to do? Select Number: 10 Other Symptoms or Health Problems: How confident are you that you can keep other symptoms or health problems from interfering with the things you want to do? Select Number: 9 Different Tasks and Activities: How confident are you that you can do the different tasks and activities needed to manage your health condition so as to reduce your need to see a doctor? Select Number: 10 Medication: How confident are you that you can do things other than just taking medication to reduce how much your illness affects your everyday life? Select Number: 10 Total Score:: 9
[2018-12-03 11:50] VITALS: BP 110/58; BP 130/72
== END 2018-12-19 23:59 ==
LOC: CR 09:00
PROVIDERS: Family Provider Internal Medicine; PCP Internal Medicine; Referring Provider Internal Medicine Cardiovascular Disease; Visit Provider Internal Medicine Cardiovascular Disease
DX: I25.118 Atherosclerotic heart disease of native coronary artery with other forms of angina pectoris (principal); I49.3 Ventricular premature depolarization; R31.9 Hematuria, unspecified; Z95.5 Presence of coronary angioplasty implant and graft
CPT/HCPCS: 81001; 92971; 93798; G0166

== ENCOUNTER 2018-12-17 10:15 | Outpatient (RCR) | payer MEDICARE, OTHER, SELFPAY ==
[2018-09-08 08:47] VITALS: BMI 28.0
[2018-11-19 01:22] VITALS: BP 106/50; BP 110/60; BMI 28.1
== END 2018-12-19 23:59 ==
LOC: CR 10:15
PROVIDERS: Family Provider Internal Medicine; PCP Internal Medicine; Referring Provider Internal Medicine Cardiovascular Disease; Visit Provider Internal Medicine Cardiovascular Disease
DX: I25.10 Atherosclerotic heart disease of native coronary artery without angina pectoris (principal); I49.3 Ventricular premature depolarization; Z95.5 Presence of coronary angioplasty implant and graft
CPT/HCPCS: 93798

== ENCOUNTER 2019-01-18 08:00 | Outpatient (RCR) | payer MEDICARE, OTHER, SELFPAY ==
[2018-09-08 08:47] VITALS: BMI 28.0
[2018-12-20 01:06] VITALS: BMI 28.3
[2018-12-20 01:39] VITALS: BP 110/58; BP 130/72
--- NOTE | 2019-01-03 08:31 | PCM.CR.ITP ---
General Information - General Information Admitting Diagnosis: PCI with stent - Education/Goals Cardiac Rehabilitation Goals: 1. Maintain the individual as the primary focus of care. 2. To improve the patient's quality of life. 3. Identification of cardiac risk factors and provide cardiac risk factor management. 4. Enhance the psychosocial status of the patient. 5. Reconditioning enough to allow the patient to resume customary activities. 6. Control symptoms of cardiac disease Scale for measuring improvement of personal goals: Enter appropriate number in Comments. 2 = Unchanged. 3 = Slightly Better. 4 = Moderate Improvement. 5 = Met my Goal Exercise - 90-Day Assessment - Visit Date of Eval: 01/03/19 Session #:: 35 - Stages of Change Stages of Change:: Action - Physician Prescribed Exercise Modalities: Treadmill, Airdyne, NuStep Frequency (days/week): 3 Duration (Minutes):: 30-45 Intensity: 60-80% age predicted maximum heart rate reserve METs - Progression: 0.5-1.0 MET, RPE 11-14 WEEK: 5 Target Heart Rate:: 110-115 Max HR 120 - Hypertension Resting Blood Pressure:: 108/60 Peak Exercise Blood Pressure:: 148/68 - Intervention Home Exercise/Activity Goal:: Sitting Time <3 hrs/day - Education Goals:: Warm-up, RPE LANE Scale, S/S, Safe Exercise, Self-Monitoring - Exercise Program Goals Exercise Program Goals: Aerobic Activity >30 min, B/P <130/80 Nutrition - 90-Day Assessment - Program Goals Nutrition Program Goals: LDL <70. Total Cholesterol <200. HDL >45. Triglycerides <150. HgbA1C <7%. BMI <25 - Visit Date of Eval: 01/03/19 - Stages of Change Stages of Change:: Action - Weight Management Weight:: 81.873 kg - Intervention Referral to dietitian:: No Referral to Diabetic Clinic:: No Will attend diet classes:: Yes - Education Attended class for:: Signs & symptoms of hypoglycemia, Signs & symptoms of hyperglycemia, Relate diabetes to coronary artery disease, Healthy eating Tobacco - Initial Assessment - Program Goals Tobacco Program Goals: Complete smoking cessation. Attend education classes. Improve Knowledge Test score - Learning Barriers Learning Barriers: Hearing - acute hearing loss bilaterally; wears hearing aids, Ready to Learn Tobacco - 90-Day Assessment - Program Goals Tobacco Program Goals: Complete smoking cessation. Attend education classes. Improve Knowledge Test score - Stage of Change Stages of Change:: Action - Learning Barriers Learning Barriers: Participates in education - Family Support Do you have family support?: Yes - Tobacco Use Tobacco Use: Non-smoker - Intervention Smoking Cessation Referral:: No Individual Education/Counseling:: No Education Schedule Given:: Yes - Education Attended class for:: Tobacco triggers, Coronary artery disease, Risk factors, Sexuality, Medical compliance, Cardiac A&P, Angina signs & symptoms Psychosocial - Initial Assess - Target Goals Target Goals: Assess presence or absence of depression. Using a valid screening tool, maximizes coping skills. Positive support system - Psychosocial Test Tool Used:: HANDS Depression Questionnaire - Assistive Devices Fall Risk Assessed:: Yes Psychosocial - 90-Day Assess - Target Goals Target Goals: Assess presence or absence of depression. Using a valid screening tool, maximizes coping skills. Positive support system - Stages of Change Stages of Change:: Action - Psychosocial Test Tool Used:: HANDS Depression Questionnaire - Intervention PS - Interventions: Yes Attend Stress Management Classes, Yes Uses Stress Management Skills, No Referral to Mental Health, No Referral to [facility] Case Management, No Referral to Physician - Education Attended classes for:: Coping techniques, Signs & symptoms of depression, Stress management, Relaxation techniques - Assistive Devices Assistive Devices:: None Fall Risk Assessed:: Yes Patient Health Questionnaire 90-Day Re-eval Assessment 1. Little interest or pleasure in doing things: Not at all 2. Feeling down, depressed, or hopeless: Not at all 3. Trouble falling or staying asleep, or sleeping too much: Not at all 4. Feeling tired or having little energy: Several days 5. Poor appetite or overeating: Several days 6. Feeling bad about yourself -- or that you are a failure or have let yourself or your family down: Not at all 7. Trouble concentrating on things, such as reading the newspaper or watching television: Several days 8. Moving or speaking so slowly that other people could have noticed. Or the opposite - being so fidgety or restless that you have been moving around a lot more than usual: Not at all 9. Thoughts that you would be better off , or of hurting yourself in some way: Not at all How difficult have these problems made it for you to do your work, take care of things at home, or get along with other people?: Not difficult at all Total Score: 3 Self-Efficacy 90-Day Re-eval Assessment We would like to know how confident you are in doing certain activities. Please select your confidence level for:: Select your confidence level for the following using the scale 1-10 where 1 is not at all confident and 10 is totally confident. Your score is the average of all 6 responses. Fatigue: How confident are you that you can keep the fatigue caused by your disease from interfering with the things you want to do? Select Number: 10 Physical Discomfort or Pain: How confident are you that you can keep the physical discomfort or pain of your disease from interfering with the things you want to do? Select Number: 10 Emotional Distress: How confident are you that you can keep the emotional distress caused by your disease from interfering with the things you want to do? Select Number: 10 Other Symptoms or Health Problems: How confident are you that you can keep other symptoms or health problems from interfering with the things you want to do? Select Number: 9 Different Tasks and Activities: How confident are you that you can do the different tasks and activities needed to manage your health condition so as to reduce your need to see a doctor? Select Number: 10 Medication: How confident are you that you can do things other than just taking medication to reduce how much your illness affects your everyday life? Select Number: 10 Total Score:: 9
[2019-01-03 08:39] VITALS: BP 108/60; BP 148/68
== END 2019-01-18 23:59 ==
LOC: CR 08:00
PROVIDERS: Family Provider Internal Medicine; PCP Internal Medicine; Referring Provider Internal Medicine Cardiovascular Disease; Visit Provider Internal Medicine Cardiovascular Disease
DX: I25.118 Atherosclerotic heart disease of native coronary artery with other forms of angina pectoris (principal); I49.3 Ventricular premature depolarization; Z95.5 Presence of coronary angioplasty implant and graft
CPT/HCPCS: 92971; 93798; G0166

== ENCOUNTER 2019-01-21 08:00 | Outpatient (RCR) | payer MEDICARE, OTHER, SELFPAY ==
[2018-09-08 08:47] VITALS: BMI 28.0
[2019-01-19 01:36] VITALS: BP 108/60; BP 148/68; BMI 28.3
== END 2019-02-18 23:59 ==
LOC: CR 08:00
PROVIDERS: Family Provider Internal Medicine; PCP Internal Medicine; Referring Provider Internal Medicine Cardiovascular Disease; Visit Provider Internal Medicine Cardiovascular Disease
DX: I25.118 Atherosclerotic heart disease of native coronary artery with other forms of angina pectoris (principal); I49.3 Ventricular premature depolarization; Z95.5 Presence of coronary angioplasty implant and graft; E29.1 Testicular hypofunction; Z12.5 Encounter for screening for malignant neoplasm of prostate
CPT/HCPCS: 36415; 84153; 84403; 92971; G0103; G0166

== ENCOUNTER → 2019-02-15 14:38 | Outpatient (CLI) | payer MEDICARE, OTHER, SELFPAY ==
[2018-09-08 08:47] VITALS: BMI 28.0
[2019-02-15 14:38] VITALS: BMI 26.9
[2019-02-15 16:21] LABS: PSA,Total - Annual Screen 1.49 ng/mL (0.00-4.00)
== END ==
PROVIDERS: Family Provider Internal Medicine; PCP Internal Medicine; Referring Provider Nurse Practitioner Adult Health; Visit Provider Nurse Practitioner Adult Health
DX: Z12.5 Encounter for screening for malignant neoplasm of prostate (principal); E29.1 Testicular hypofunction
CPT/HCPCS: 36415; 84153; 84403; G0103

== ENCOUNTER 2019-04-14 10:52 | Observation (INO) | payer MEDICARE, OTHER, SELFPAY ==
[2018-09-08 08:47] VITALS: BMI 28.0
[2019-03-18 10:44] VITALS: BMI 26.9
[2019-04-14] VITALS (14 sets, daily range): BP systolic 128–186; BP diastolic 72–89; PULSE 47–67; RESP 16–18; TEMP 36.4–36.8; O2SAT 94–97; BMI 27.3; BMI 25.7
--- NOTE | 2019-04-14 11:16 | RAD_ITS ---
STUDY: X-RAY CHEST REASON FOR EXAM: Male, 78 years old. Substernal chest pain TECHNIQUE: 2 AP views COMPARISON: 10/30/18 FINDINGS: EKG leads overlie the chest The lungs are clear and expanded. There is no demonstrated pleural abnormality. Normal size heart. Normal mediastinum and tati. Normal visualized pulmonary arteries. There is atherosclerotic calcification of the aortic arch with tortuosity. Normal visualized thoracic spine. Normal visualized ribs, clavicles, and shoulders. There is no demonstrated abnormality of the visualized soft tissue structures of the upper abdomen. RAD/Chest 1 View (Portable) IMPRESSION: Normal x-ray examination of the chest. Electronically Signed: Morales Smith MD at 11:33 EDT , Service support ,
--- NOTE | 2019-04-14 11:16 | EKG12_ITS ---
Test Reason : CP Blood Pressure : / mmHG Vent. Rate : 059 BPM Atrial Rate : 059 BPM P-R Int : 154 ms QRS Dur : 100 ms QT Int : 412 ms P-R-T Axes : 046 -65 018 degrees QTc Int : 407 ms Sinus bradycardia Left anterior fascicular block Abnormal ECG Confirmed by NORBERTO ANTONIO, CASSIDY ([id number]), purchasing expeditor ANA LUISA ALLEN ([id number]) on 04/18/2019 2:04:09 PM Referred By: Jack Parsons Confirmed By:MORENA THORNTON MD
[2019-04-14 11:36] LABS: Absolute Lymphocyte Count 0.73 X10^3/uL (0.83-4.51); Absolute Neutrophil Count 3.6 X10^3/uL (2.0-7.7); Basophil# 0.02 X10^3/uL; Basophil% 0.4 % (0-1); Eosinophil# 0.14 X10^3/uL; Eosinophils% 2.8 % (0-5); Hematocrit 42.3 % (40-54); Hemoglobin 14.7 g/dL (13.0-16.5); Lymphocyte # 0.73 X10^3/ul (4.0); Lymphocyte % 14.4 % (19-41); Mean Corp Hgb Conc 34.8 g/dL (32-36); Mean Corpuscular Hgb 32.1 pg (27.0-32.0); Mean Corpuscular Volume 92.4 fL (80-94); Mean Platelet Vol. 8.7 fl (6.2-12.0); Monocyte# 0.59 X10^3/uL; Monocyte% 11.6 % (0-10); NRBC Flagged by Analyzer 0 % (0-5); Neutrophil # 3.58 X10^3/uL (2.7-7.7); Neutrophil % 70.4 % (47-70); Platelet Count 220 K/mm3 (150-450); RBC Distribution Width CV 11.3 % (11.6-14.6); RBC Distribution Width SD 38.4 fl (35.1-43.9); Red Blood Count 4.58 M/mm3 (4.6-6.2); White Blood Count 5.1 K/mm3 (4.4-11.0)
[2019-04-14 11:48] LABS: Anion Gap 5 (5-15); BUN 23 mg/dL (7-18); Calcium,Total 8.9 mg/dL (8.5-10.1); Chloride 100 mmol/L (98-107); EST Glomerular Filtration Rate 77 mL/min (>60); Est Glom Filt Rate - Afr Amer 93 mL/min (>60); Estimated Creatinine Clearance 59.85 ml/min; Glucose 87 mg/dL (74-106); Potassium 4.2 mmol/L (3.5-5.1); Sodium Level 135 mmol/L (136-145)
--- NOTE | 2019-04-14 12:54 | ED.DCSUM_ITS ---
History of Present Illness Chief Complaint: Chest Pain Informant: Patient, Significant Other Onset: Today, Yesterday Context: Sudden Onset Timing: Intermittent Quality: Pain Location: Central chest Current Severity: Mild Maximum Severity: Moderate Worsened by: Nothing Relieved by: Nothing Associated Symptoms: No associated symptoms or radiation Narrative: Patient is an elderly male with known coronary disease who has 2 stents. He states his practice professional Dr. Eaton. He apparently has vessels that are not accessible or small in size that no intervention was undertaken. He did undergo ECT P therapy. He states the treatment alleviated his discomfort. He denies URI symptoms. He denies fever chills. He denies GI or symptoms. He denies leg pain, swelling discoloration. He states he is compliant with his medication. His last dose of aspirin was last evening which is less than 24 hours ago. He is on Plavix. Prior similar symptoms: Yes Recent Illness/Hospitalization: Yes - Past Medical History (1) Premature ventricular contractions Status: Acute (2) Atherosclerotic heart disease of [place] coronary artery with other forms of angina pectoris Status: Chronic Comment: CAMERON (2.5 X 38 Promus Synergy) to mid LAD; CAMERON (2.5 X 12 Promus Synergy) to Diagonal per Dr. Eaton @ [facility] 09/07/2018 (3) BPH (benign prostatic hyperplasia) Status: Chronic (4) Gastroesophageal reflux disease Status: Chronic (5) Hyperlipidemia Status: Chronic (6) Hypertension Status: Chronic (7) Hypothyroidism Status: Chronic (8) Long-term current use of high risk medication other than anticoagulant Status: Chronic (9) Restless leg syndrome Status: Chronic (10) Stented coronary artery Status: Chronic Comment: CAMERON (2.5 X 38 Promus [employer]nergy) to mid LAD; CAMERON (2.5 X 12 Promus Synergy) to Diagonal per Dr. Eaton @ [facility] Past Medical History - Allergies and Home Meds Allergies/Adverse Reactions: Allergies amoxicillin [From Augmentin] Adverse Reaction (Intermediate, Verified 04/14/19 10:52) Nausea/Vom/Diarrhea clavulanic acid [From Augmentin] Adverse Reaction (Intermediate, Verified 04/14/19 10:52) Nausea/Vom/Diarrhea lisinopril Adverse Reaction (Intermediate, Verified 04/14/19 10:52) cough atorvastatin [From Lipitor] Adverse Reaction (Verified 04/14/19 10:52) Pain in joints gemfibrozil [From Lopid] Adverse Reaction (Verified 04/14/19 10:52) Pain in joints niacin Adverse Reaction (Verified 04/14/19 10:52) Other HOT FLASHES Primary Care Physician: Tania Jackson MD [Primary Care Provider] - Prior records reviewed: Yes Surgical History: - - Status post appendectomy, status post prostate surgery, status post left heart cath, status post vasectomy, status post CAMERON, post eye surgery x2, status post hemorrhoidectomy Lives: Spouse/ Significant Other Smoking Status: Never smoker Alcohol: None Drugs: None - Family History Maternal Family History: Family History (Last Reviewed 12/23/18 @ 13:03 by Nel Mcarthur) Grandfather CVA (cerebral vascular accident) Depression Brother COPD (chronic obstructive pulmonary disease) Grandmother Depression Son Arthritis Father Arthritis CAD (coronary artery disease) Mother Hypertension Hyperlipidemia Pacemaker Other Cancer Family History: Reports: Heart Disease - Status post pacemaker, Hypertension Paternal Family History: Family History (Last Reviewed 12/23/18 @ 13:03 by Nel Mcarthur) Grandfather CVA (cerebral vascular accident) Depression Brother COPD (chronic obstructive pulmonary disease) Grandmother Depression Son Arthritis Father Arthritis CAD (coronary artery disease) Mother Hypertension Hyperlipidemia Pacemaker Other Cancer Family History: Reports: Cancer - Basal cell carcinoma, Heart Disease Review of Systems General: Denies: Chills, Fever, Sweats Eyes: Denies: Visual changes - bilaterally, Blurred Vision - bilaterally, Diplopia ENT: Denies: Rhinorrhea, Sore throat Cardiovascular: Reports: Chest pain. Denies: Palpitations, Heart racing Respiratory: Denies: Dyspnea, Cough, Dyspnea on exertion Gastrointestinal: Denies: Abdominal pain, Nausea, Vomiting, Diarrhea, Melena, Hematochezia Genitourinary: Denies: Dysuria, Hematuria, Frequency Musculoskeletal: Denies: Myalgias, Arthralgias, Neck pain, Back pain, Swelling, Extremity Pain Skin: Denies: Rash, Wounds Neurological: Denies: Headache, Weakness, Numbness Hematologic: Denies: Easy bruising, Easy bleeding Allergy: Denies: Uticaria, Swelling of the mouth Physical Exam Vital Signs/Narrative: Vital Signs Temp Pulse Resp BP Pulse Ox 04/14/19 11:38 96 04/14/19 10:53 98.1 F 64 17 169/80 H 97 Inital Vital Signs reviewed: Yes General: Well nourished, Well developed, No Acute Distress Head: Normocephalic, Atraumatic Eyes: Perrl, EOMI ENT: Moist mucous membranes, No rhinorrhea Neck: Supple, Nontender Cardiovascular: Regular rate, Regular rhythm, No murmurs, Normal S1, Normal S2 Respiratory: No distress, CTA bilaterally, Chest nontender Abdomen: Soft, Nontender, Nondistended, Normal bowel sounds, No masses Back: Nontender, Normal Inspection Extremities: Nontender, No edema, - - There is no asymmetry, swelling, discoloration, leg vein distention, palpable cords or tenderness along the distribution of the deep venous system. Skin: Normal color, No rash Neurological: Alert, Oriented x3, Cranial nerves II-XII grossly intact, Normal Strength, Normal Sensation Psychological: Normal affect, Normal Mood Diagnostic/Tx/Re-eval Chest X-Ray - ED: 1 View, Read by ED Physician, Normal, Heart, Lungs, Mediastinum, Bony Structures, No Acute Disease Impressions Chest X-Ray 04/14/19 11:16 IMPRESSION: Normal x-ray examination of the chest. Electronically Signed: Morales Smith MD at 11:33 EDT , Service support , 04/14/19 11:16 Chest 1 View (Portable) [RAD] Stat Laboratory Results 04/14/19 04/14/19 10:51 10:51 WBC 5.1 RBC 4.58 L Hgb 14.7 Hct 42.3 MCV 92.4 MCH 32.1 H MCHC 34.8 RDW Std Deviation 38.4 RDW Coeff of Beni 11.3 L Plt Count 220 MPV 8.7 Immature Gran % (Auto) 0.400 Neut % (Auto) 70.4 H Lymph % (Auto) 14.4 L [place] % (Auto) 11.6 H Eos % (Auto) 2.8 Baso % (Auto) 0.4 Absolute Neuts (auto) 3.6 Absolute Lymphs (auto) 0.73 L Absolute Nucleated RBC 0.00 Nucleated RBC % 0 Sodium 135 L Potassium 4.2 Chloride 100 Carbon Dioxide 30.0 Anion Gap 5 BUN 23 H Creatinine 1.00 Estim Creat Clear Calc 59.85 Est GFR (MDRD) Af Amer 93 Est GFR (MDRD) Non-Af 77 BUN/Creatinine Ratio 23.0 H Glucose 87 Calcium 8.9 Troponin I < 0.015 - Rhythm Strip Rhythm Strip: Sinus Rhythm Rate: 62 Ectopy: PVC(s) - EKG Initial EKG Interpretation: Sinus Bradycardia - Ventricular rate is 59. CO interval is 154 ms. QS duration 100 ms. QT duration is 412 ms. There is evidence of left anterior fascicular block with [place] to the left. There is no acute ischemic changes. EKG is unchanged from prior dated November 01, 2018. - Medical Decision Making Patient states pain is similar to the pain he had prior to therapy after angioplasty. He took 2 nitro. The nitro 1 hour apart. He reported no improvement. He had resolution of his pain prior to the administration of the nitroglycerin by the nurse. Patient was informed of the results. Case was discussed initially with Dr. Celso Thomas. Case was then discussed with Dr. Jose Eaton who recommended admission and stress testing in the morning. ED Disposition - Plan for ED Patient: Disposition: Acute Care Hospital [facility] Diagnosis: Central chest pain, Atherosclerotic heart disease of [place] coronary artery with other forms of angina pectoris, Hypertension Referrals: Tania Jackson MD [Primary Care Provider] -
[2019-04-14] MEDS: Nitroglycerin SL (ED/IMG/CATH) 0.4 MG TABLET SUBLINGUAL ×2 (13:09→13:14)
--- NOTE | 2019-04-14 13:12 | EKG12_ITS ---
Test Reason : REPEAT-CP Blood Pressure : / mmHG Vent. Rate : 049 BPM Atrial Rate : 049 BPM P-R Int : 170 ms QRS Dur : 108 ms QT Int : 458 ms P-R-T Axes : 063 -60 007 degrees QTc Int : 413 ms Sinus bradycardia Left anterior fascicular block Abnormal ECG Confirmed by NORBERTO ANTONIO, CASSIDY ([id number]), assistant editor ANA LUISA ALLEN ([id number]) on 04/18/2019 2:04:24 PM Referred By: Jack Parsons Confirmed By:MORENA THORNTON MD
--- NOTE | 2019-04-14 13:12 | ED.RN ---
PT REPORTS HAVING HIS CHEST PAIN RETURN, DR CUETO MADE AWARE, REPEAT ECG PERFORMED
--- NOTE | 2019-04-14 13:53 | HP.PCM_ITS ---
Problem List (1) Chest pain Status: Chronic Qualifiers: Chest pain type: chest pain due to myocardial ischemia Ischemic chest pain type: unspecified angina pectoris type Qualified Code(s): I25.9 - Chronic ischemic heart disease, unspecified History of Present Illness Date of Admission: 04/14/19 Chief Complaint: chest pain The patient is a 78 year old M who was in his health and then mowed his lawn with a push more yesterday and was feeling fine and then afterwards, with sitting down and then had a midsternal chest pain. I last for a while and eventually abated. It recurred again today and then got better and only to recur again in the emergency room patient said that he has some chest pain when he has had cardiac stents in the past and this is similar presentation. States that he did take few Tums yesterday and did not relieve his pain he denies any other constitutional symptoms. Denies his chest pain radiating anywhere. [] Past Medical History Past Medical History (Chronic Problems): Chronic Problems (Last Reviewed 12/23/18 @ 13:03 by Nel Mcarthur) Atherosclerotic heart disease of [place]qu[place] coronary artery with other forms of angina pectoris (Chronic) CAMERON (2.5 X 38 Prom[employer]) to mid LAD; CAMERON (2.5 X 12 [employer]nergy) to Diagonal per Dr. Eaton @ [facility] 09/07/2018 Chest pain (Chronic) Stented coronary artery (Chronic 09/07/18) CAMERON (2.5 X 38 [employer]) to mid LAD; CAMERON (2.5 X 12 [employer]) to Diagonal per Dr. Eaton @ [facility] EH (obstructive sleep apnea) (Chronic) Hearing loss (Chronic) Nonrheumatic tricuspid (valve) insufficiency (Chronic) Mild (1+) per echo 11/26/2016. RVSP 35 mmhg. Hypothyroidism (Chronic) History of left heart catheterization (Chronic 03/21/14) Nonobstructive CAD, <25% in septal snaker and ramus, per Dr. Dunn @ [facility] Hypertension (Chronic) Epistaxis, recurrent (Chronic) BPH (benign prostatic hyperplasia) (Chronic) Hypertension (Chronic) Long-term current use of high risk medication other than anticoagulant (Chronic) Benign prostate hyperplasia (Chronic) Gastroesophageal reflux disease (Chronic) Hyperlipidemia (Chronic) Restless leg syndrome (Chronic) Medical History: Medical History (Last Reviewed 04/14/19 @ 13:54 by Jack Parsons DO) Atherosclerotic heart disease of [place] coronary artery with other forms of angina pectoris (Chronic) I25.118 CAMERON (2.5 X 38 [employer]) to mid LAD; CAMERON (2.5 X 12 [employer]nergy) to Diagonal per Dr. Eaton @ [facility] 09/07/2018 Pre-operative cardiovascular exam, new EKG abnormalities c/w ischemia (Acute) Z01.810, R94.31 Premature ventricular contractions (Acute) I49.3 Screening for intestinal cancer (Acute) Z12.10 EH (obstructive sleep apnea) (Chronic) G47.33 Hearing loss (Chronic) H91.90 Nonrheumatic tricuspid (valve) insufficiency (Chronic) I36.1 Mild (1+) per echo 11/26/2016. RVSP 35 mmhg. Hypothyroidism (Chronic) E03.9 Malaise and fatigue (Acute) R53.81, R53.83 Hypertension (Chronic) I10 Hypertension (Chronic) I10 Gastroesophageal reflux disease (Chronic) K21.9 Hyperlipidemia (Chronic) E78.5 Arthritis M19.90 Hay fever J30.1 Shoulder pain M25.519 Crohns disease K50.90 Allergies amoxicillin [From Augmentin] Adverse Reaction (Intermediate, Verified 04/14/19 10:52) Nausea/Vom/Diarrhea clavulanic acid [From Augmentin] Adverse Reaction (Intermediate, Verified 04/14/19 10:52) Nausea/Vom/Diarrhea lisinopril Adverse Reaction (Intermediate, Verified 04/14/19 10:52) cough atorvastatin [From Lipitor] Adverse Reaction (Verified 04/14/19 10:52) Pain in joints gemfibrozil [From Lopid] Adverse Reaction (Verified 04/14/19 10:52) Pain in joints niacin Adverse Reaction (Verified 04/14/19 10:52) Other HOT FLASHES Home Medications: Ambulatory Orders Medication Instructions Recorded Aspirin [Aspirin, Baby] 81 mg PO QHS 03/20/14 Finasteride [Proscar] 5 mg PO QHS 03/20/14 Magnesium 500 mg PO DAILY 03/20/14 Multivitamins,Therapeutic 1 tab PO DAILY 03/20/14 [Multivitamin] Allergy Shot 1 unit IM QWEEK 08/13/16 Bilberry 375 mg PO QHS 08/13/16 Calcium Carbonate [Calcium] 1,500 mg PO QHS 08/13/16 Cholecalciferol (VIT D3) [Vitamin 2,000 unit PO QHS 08/13/16 D3] omeprazole 20 mg capsule,delayed 20 mg PO DAILY 09/09/17 release psyllium seed (sugar) oral powder 1 tbsp PO DAILY 09/09/17 cyanocobalamin (vit B-12) 500 mcg 250 mcg PO DAILY@0800 tab 06/08/18 tablet Clopidogrel Bisulfate [Plavix] 75 mg PO DAILY 10/30/18 Levothyroxine Sodium [Synthroid] 112 mcg PO QDAY 10/30/18 labetalol 200 mg tablet 200 mg PO BID #180 tab 11/10/18 nitroglycerin 0.4 mg sublingual 0.4 mg SUBLINGUAL Q5-15M PRN #25 11/10/18 tablet tab budesonide-formoterol HFA 160 2 puff INHALATION BID 12/23/18 mcg-4.5 mcg/actuation aerosol inhaler fluticasone propionate 50 1 spray INTRANASAL DAILY 12/23/18 mcg/actuation nasal spray,suspension gabapentin 300 mg capsule 300 mg PO TID #270 cap 01/13/19 rosuvastatin 5 mg tablet 5 mg PO QHS #90 tab 01/28/19 sertraline 25 mg tablet 25 mg PO LUNCH #90 tab 02/02/19 isosorbide mononitrate ER 30 mg 30 mg PO .COMPLEX #270 tab 02/15/19 tablet,extended release 24 hr losartan 100 mg tablet 50 mg PO QHS #90 tab 03/28/19 Surgical History: Surgical History (Last Reviewed 04/14/19 @ 13:54 by Jack Parsons DO) Stented coronary artery (Chronic) Onset Date: 09/07/18 Z95.5 CAMERON (2.5 X 38 [employer]) to mid LAD; CAMERON (2.5 X 12 [employer]) to Diagonal per Dr. Eaton @ [facility] History of left heart catheterization (Chronic) Onset Date: 03/21/14 Z98.890 Nonobstructive CAD, <25% in septal snaker and ramus, per Dr. Dunn @ [facility] H/O hemorrhoidectomy Z98.891989 H/O vasectomy Z98.52 1972 History of prostate surgery Z98.890 2009 & 2016 Hx of appendectomy Z98.890, Z90.49 ruptured appendix, 1993 eye lesion removal Surgical History: - - Status post appendectomy, status post prostate surgery, status post left heart cath, status post vasectomy, status post CAMERON, post eye surgery x2, status post hemorrhoidectomy Psychiatric History: No pertinent psych hx Lives: Spouse/ Significant Other Smoking Status: Never smoker Alcohol: None Drugs: None - *Family History Maternal Family History: Family History (Last Reviewed 04/14/19 @ 13:54 by Jack Parsons DO) Grandfather CVA (cerebral vascular accident) Depression Brother COPD (chronic obstructive pulmonary disease) Grandmother Depression Son Arthritis Father Arthritis CAD (coronary artery disease) Mother Hypertension Hyperlipidemia Pacemaker Other Cancer History Items: Heart Disease - Status post pacemaker, Hypertension Paternal Family History: Family History (Last Reviewed 04/14/19 @ 13:54 by Jack Parsons DO) Grandfather CVA (cerebral vascular accident) Depression Brother COPD (chronic obstructive pulmonary disease) Grandmother Depression Son Arthritis Father Arthritis CAD (coronary artery disease) Mother Hypertension Hyperlipidemia Pacemaker Other Cancer History Items: Cancer - Basal cell carcinoma, Heart Disease Review of Systems Constitutional: Denies: Anorexia, Chills, Fever, Night Sweats Eyes: Denies: Blurred vision, Double vision HEENT: Reports: - - 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 Denies: Head Aches, Sinus Congestion, Sinus Drainage Cardiovascular: Reports: Chest Pain. Denies: Edema, Palpitations Respiratory: Denies: Cough, Shortness of breath at rest, Sputum production Gastrointestinal: Denies: Abdominal Pain, Nausea, Vomiting Genitourinary: Denies: Dysuria Musculoskeletal: Denies: Joint Pain, Joint Tenderness Skin: Reports: - - Rosacea. Denies: Rash, Wounds Neurological: Reports: - - Was having a dizziness and started was due to his blood pressure medications which have been recently decreased.. Denies: Focal weakness, Numbness, Tingling Psychiatric: Denies: Anxiety, Depression, Homicidal Ideations, Suicidal Ideations Hematologic/ Lymphatic: Denies: Easy Bruising, Easy Bleeding, Hx of blood clot Comment: A 10 point review of systems were negative except as mentioned in the history of present illness and the other review of systems. VTE Information - Inpt Only VTE Present on Admission: No VTE Mechan Device Prophylaxis: None VTE Pharm Prophylaxis ordered?: Yes Patient Problems: Active and Suspected Problems (Last Reviewed 12/23/18 @ 13:03 by Nel Mcarthur) Central chest pain (Acute) - Physical Exam General: Alert, Cooperative, No apparent distress HEENT: Atraumatic, Normocephalic Oral: Moist Mucosa, No Gingival or Mucosal Lesions/ Ulcerations Neck: No Nodes, Thyroid Normal Size and Texture Lungs: Clear to auscultation, Normal air movement, No rhonchi, No wheeze, No rales Cardiovascular: Regular rate, Regular Rhythm, Normal S1, Normal S2, No murmurs Abdomen: Bowel Sounds Present, Soft, Non Tender, Non-Distended, No Hepato- splenomegaly Extremities: No edema, No Calf Tenderness Skin: No rashes, No breakdown Musculoskeletal: No Tenderness to Palpation of Joints or Extremities, No Muscle Wasting Neurological: Deep Tendon Reflexes 2+/4 and Symmetrical, Neuro grossly intact, Sensory exam intact to light touch and pain Psych/Mental Status: Normal Affect, Appropriate Vital Signs Temp Pulse Resp BP Pulse Ox 36.7 C 50 L 17 186/83 H 96 04/14/19 10:53 04/14/19 13:29 04/14/19 13:29 04/14/19 13:29 04/14/19 13:29 Oxygen Delivery Method Room Air Weight: 81.5 kg Body Mass Index (BMI) 27.3 Laboratory Tests Past 24 Hrs 04/14/19 04/14/19 10:51 10:51 WBC 5.1 RBC 4.58 L Hgb 14.7 Hct 42.3 MCV 92.4 MCH 32.1 H MCHC 34.8 RDW Std Deviation 38.4 RDW Coeff of Beni 11.3 L Plt Count 220 MPV 8.7 Immature Gran % (Auto) 0.400 Neut % (Auto) 70.4 H Lymph % (Auto) 14.4 L Harper % (Auto) 11.6 H Eos % (Auto) 2.8 Baso % (Auto) 0.4 Absolute Neuts (auto) 3.6 Absolute Lymphs (auto) 0.73 L Absolute Nucleated RBC 0.00 Nucleated RBC % 0 Sodium 135 L Potassium 4.2 Chloride 100 Carbon Dioxide 30.0 Anion Gap 5 BUN 23 H Creatinine 1.00 Estim Creat Clear Calc 59.85 Est GFR (MDRD) Af Amer 93 Est GFR (MDRD) Non-Af 77 BUN/Creatinine Ratio 23.0 H Glucose 87 Calcium 8.9 Troponin I < 0.015 EKG reviewed and showed normal sinus rhythm with left anterior fascicular block. Unchanged from November 01, 2018. Assessment/Plan All Active Problems (Last Reviewed 12/23/18 @ 13:03 by Nel Mcarthur) Central chest pain (Acute) Pre-operative cardiovascular exam, new EKG abnormalities c/w ischemia (Acute) Premature ventricular contractions (Acute) Screening for intestinal cancer (Acute) Dyspnea on exertion (Acute) Malaise and fatigue (Acute) Dermatitis (Acute) Lower extremity edema (Acute) Ingrown toenail of left foot with infection (Acute) Abnormal nuclear stress test (Resolved) Chest discomfort (Resolved) Dyspnea (Resolved) 1. Chest pain * Heart score and MATIAS score are 5. * Given the similarity of symptoms from being consistent with his prior cardiac issues, plan will be to cycle troponins and order a stress test. Based on the results of either of those, if they are abnormal, cardiology would be consulted. The event that both are normal, then the patient will be discharged. The explained the patient that possibly this could be related with esophageal spasm but that would need to be a diagnosis of exclusion given his high risk profile. * Patient will continue with aspirin and clopidogrel. Patient on a low-dose of rosuvastatin. Patient has a known intolerance to atorvastatin. * Patient will have a chemical stress test performed on the 26, unless his troponins become segmentally elevated that event then the stress test will be stopped and cardiology will be consulted 2. VTE prophylaxis: Low risk as patient is observation status. Code Visit OBSV E&M: 35536 Initial observation care L3
--- NOTE | 2019-04-14 14:24 | EKG12_ITS ---
Test Reason : CP Blood Pressure : / mmHG Vent. Rate : 065 BPM Atrial Rate : 065 BPM P-R Int : 152 ms QRS Dur : 100 ms QT Int : 400 ms P-R-T Axes : 060 -63 032 degrees QTc Int : 416 ms Sinus rhythm with occasional Premature ventricular complexes Left anterior fascicular block Abnormal ECG When compared with ECG of 14-APR-2019 14:48, MANUAL COMPARISON REQUIRED, DATA IS UNCONFIRMED Confirmed by NORBERTO ANTONIO, CASSIDY ([id number]), web content editor ANA LUISA ALLEN ([id number]) on 04/18/2019 2:11:56 PM Referred By: Jack Parsons Confirmed By:MORENA THORNTON MD
--- NOTE | 2019-04-14 14:58 | CASEMGMT ---
LW/POA in echart. SW printed and will place in chart. Christy Miner is listed as POA. JASMIN Chaney
--- NOTE | 2019-04-14 15:04 | STEWCON_ITS ---
Reason For Study: Chest Pain Stress Results Protocol: Jese Protocol Maximum Predicted HR: 143 bpm Target HR: 122 bpm % Maximum Predicted HR: 88 % DurationHeart Rate Stage (mm:ss) (bpm) BP Comment Baseline 66 148/80No Chest Pain; Diluted Definity 4 ML Given Jese Protocol Stage I 3:00 88 132/70No Chest Pain Jese Protocol Stage II 3:00 106 144/64No Chest Pain Jese Protocol Stage III 2:00 126 160/60No Chest Pain; Mild Dyspnea; Fatigue Recovery 81 120/70No Chest Pain Stress Duration: 8:00 mm:ss Maximum Stress HR: 126 bpm METS: 10 Baseline Echocardiogram Findings The estimated ejection fraction is 55 %. Stress Echo Wall motion Data Resting WM Intermediate WM Stress WM Resting Wall Motion Wall Motion Stress Mid-Anterior : Mildly No regional wall motion hypokinetic. abnormalities noted. EKG Data The baseline ECG displays normal sinus rhythm. The patient exercised according to the regular Jese protocol for a total duration of 8:00. The maximum heart rate attained was 131 beats per minute. This was 91% of maximum predicted heart rate. The patient exercised into stage 3 of the Jese protocol. During stress, there were no ST or T wave changes noted to suggest ischemia. No clinical angina was noted. Interpretation Summary The estimated ejection fraction is 55 %. Mid-Anterior : Mildly hypokinetic Normal, adequate, treadmill echocardiogram. Negative for ischemia by EKG and echocardiographic anterior. No anginal symptoms noted. Rare PVCs noted. Appropriate blood pressure response exercise. Average exercise capacity for age. Patient at baseline mild mid anteroseptal hypokinesis which improved with exercise. Decreased sensitivity due to poor echo windows requiring Definity agent. Final LVEF is 65%. Test terminated due to fatigue. No complications. The study was technically difficult. Contrast injection was performed. Ordering Physician: Kike Eaton Referring Physician: Tania Jackson Performed By: Brandee Lauren, RDCS, RVT
--- NOTE | 2019-04-14 15:05 | PCM.CONS.C ---
Problem List (1) Atherosclerotic heart disease of [place] coronary artery with other forms of angina pectoris Status: Chronic Comment: CAMERON (2.5 X 38 Promus Synergy) to mid LAD; CAMERON (2.5 X 12 Promus Synergy) to Diagonal per Dr. Eaton @ [facility] 09/07/2018 (2) Premature ventricular contractions Status: Acute (3) Hypertension Status: Chronic Qualifiers: Hypertension type: essential hypertension Qualified Code(s): I10 - Essential (primary) hypertension (4) Gastroesophageal reflux disease Status: Chronic (5) Hyperlipidemia Status: Chronic Qualifiers: Hyperlipidemia type: pure hypercholesterolemia Qualified Code(s): E78.00 - Pure hypercholesterolemia, unspecified; E78.0 - Pure hypercholesterolemia Reason for Consult Date of Consultation: 04/14/19 Reason for Consultation: Chest pain, coronary artery disease, hypertension, hyperlipidemia History of Present Illness: IMANI MORA, is a 78 M who has a history of coronary artery disease with recent stenting in August 2018 to his LAD and diagonal. He also has a history of hypertension and hyperlipidemia. He recently established with us for concerns over his hypertension. Patient underwent a stress echocardiogram in June 2018 which was negative for ischemia however he continued to have shortness of breath and decreased exercise capacity. He did have a Holter monitor which demonstrated over 11,000 PVCs compromising 10% of his scan. He underwent a diagnostic heart catheterization for his continued shortness of breath. He was noted to have disease in his LAD and diagonal in which he had stented, and his PVCs completely resolved. Pt returned for a routine appt on 11/10/18 and was in cardiac rehab that morning and developed chest pain while on the airodyne. He was diaphoretic. He stopped and the pain went away. It was a 6/10. He has chest pain a few weeks prior to that, but it did not last long. Rehab did not note any changes in his EKG. He did have one episode of lightheadedness. He did not have any syncope. He thinks he is slightly more SOB and he has been working with pulmonary on this. Given his known coronary disease, excessive PVCs and recurrent exertional angina he underwent repeat catheterization on 11/12/18 which demonstrated widely patent previously placed LAD stent as well as patent diagonal. I reviewed those films again prior to visiting the patient in his hospital room. The patient was treated medically. Since her last visit he is doing very well and denies any chest pain, angina, shortness of breath or dyspnea on exertion. He is taking and tolerating his medicines well. Patient is had undergone ECP therapy until around January 2019, with an excellent result. Patient has had no symptoms whatsoever up until last evening after he was hand mowing his grass with a self-propelled lawnmower, and pulling out weeds. He had no exertional symptoms during his cutting of the grass, however when he sat down in his chair he developed about 4 out of 10 substernal chest pain with no associated nausea, shortness of breath or dyspnea. Patient took 2 sublingual nitroglycerin but they did not improve his pain. His pain went away on its own. Patient woke up this morning, and had no significant chest pain until later in the morning. He had recurrent midsternal chest pressure but no associated palpitations, dyspnea or shortness of breath. The patient took 3 Tums and 2 sublingual nitroglycerin and when he had no effect he came to the emergency room. Upon arrival the patient was given 2 more sublingual nitroglycerin which apparently resolved his pain. His EKG showed normal sinus rhythm, left anterior hemiblock, no acute changes. His 2 troponins have been negative. Patient has been compliant with his baby aspirin and Plavix as well as his other antihypertensive medications. Patient's previous symptoms which include his into his coronary disease were PVCs but he has had none of those that he can detect. In addition he was found to be very hypertensive upon arrival with his blood pressure 186/83, and now is 177/79. Past Medical History Allergies/Adverse Reactions: Allergies amoxicillin [From Augmentin] Adverse Reaction (Intermediate, Verified 04/14/19 10:52) Nausea/Vom/Diarrhea clavulanic acid [From Augmentin] Adverse Reaction (Intermediate, Verified 04/14/19 10:52) Nausea/Vom/Diarrhea lisinopril Adverse Reaction (Intermediate, Verified 04/14/19 10:52) cough atorvastatin [From Lipitor] Adverse Reaction (Verified 04/14/19 10:52) Pain in joints gemfibrozil [From Lopid] Adverse Reaction (Verified 04/14/19 10:52) Pain in joints niacin Adverse Reaction (Verified 04/14/19 10:52) Other HOT FLASHES Home Medications: Ambulatory Orders Medication Instructions Recorded Aspirin [Aspirin, Baby] 81 mg PO QHS 03/20/14 Finasteride [Proscar] 5 mg PO QHS 03/20/14 Magnesium 500 mg PO DAILY 03/20/14 Multivitamins,Therapeutic 1 tab PO DAILY 03/20/14 [Multivitamin] Allergy Shot 1 unit IM QWEEK 08/13/16 Bilberry 375 mg PO QHS 08/13/16 Calcium Carbonate [Calcium] 1,500 mg PO QHS 08/13/16 Cholecalciferol (VIT D3) [Vitamin 2,000 unit PO QHS 08/13/16 D3] omeprazole 20 mg capsule,delayed 20 mg PO DAILY 09/09/17 release psyllium seed (sugar) oral powder 1 tbsp PO DAILY 09/09/17 cyanocobalamin (vit B-12) 500 mcg 250 mcg PO DAILY@0800 tab 06/08/18 tablet Clopidogrel Bisulfate [Plavix] 75 mg PO DAILY 10/30/18 Levothyroxine Sodium [Synthroid] 112 mcg PO QDAY 10/30/18 labetalol 200 mg tablet 200 mg PO BID #180 tab 11/10/18 nitroglycerin 0.4 mg sublingual 0.4 mg SUBLINGUAL Q5-15M PRN #25 11/10/18 tablet tab budesonide-formoterol HFA 160 2 puff INHALATION BID 12/23/18 mcg-4.5 mcg/actuation aerosol inhaler fluticasone propionate 50 1 spray INTRANASAL DAILY 12/23/18 mcg/actuation nasal spray,suspension gabapentin 300 mg capsule 300 mg PO TID #270 cap 01/13/19 rosuvastatin 5 mg tablet 5 mg PO QHS #90 tab 01/28/19 sertraline 25 mg tablet 25 mg PO LUNCH #90 tab 02/02/19 isosorbide mononitrate ER 30 mg 30 mg PO .COMPLEX #270 tab 02/15/19 tablet,extended release 24 hr losartan 100 mg tablet 50 mg PO QHS #90 tab 03/28/19 Past Medical History (Chronic Problems): Chronic Problems (Last Reviewed 04/14/19 @ 13:54 by Jack Parsons DO) Atherosclerotic heart disease of [place] coronary artery with other forms of angina pectoris (Chronic) CAMERON (2.5 X 38 Promus Synergy) to mid LAD; CAMERON (2.5 X 12 Promus Synergy) to Diagonal per Dr. Eaton @ [facility] 09/07/2018 Chest pain (Chronic) Stented coronary artery (Chronic 09/07/18) CAMERON (2.5 X 38 Promus Synergy) to mid LAD; CAMERON (2.5 X 12 Promus Synergy) to Diagonal per Dr. Eaton @ [facility] EH (obstructive sleep apnea) (Chronic) Hearing loss (Chronic) Nonrheumatic tricuspid (valve) insufficiency (Chronic) Mild (1+) per echo 11/26/2016. RVSP 35 mmhg. Hypothyroidism (Chronic) History of left heart catheterization (Chronic 03/21/14) Nonobstructive CAD, <25% in septal account auditor and ramus, per Dr. Dunn @ [facility] Hypertension (Chronic) Epistaxis, recurrent (Chronic) BPH (benign prostatic hyperplasia) (Chronic) Hypertension (Chronic) Long-term current use of high risk medication other than anticoagulant (Chronic) Benign prostate hyperplasia (Chronic) Gastroesophageal reflux disease (Chronic) Hyperlipidemia (Chronic) Restless leg syndrome (Chronic) Surgical History: - - Status post appendectomy, status post prostate surgery, status post left heart cath, status post vasectomy, status post CAMERON, post eye surgery x2, status post hemorrhoidectomy Psychiatric History: No pertinent psych hx - *Family History Maternal Family History: Family History (Last Reviewed 04/14/19 @ 13:54 by Jack Parsons DO) Grandfather CVA (cerebral vascular accident) Depression Brother COPD (chronic obstructive pulmonary disease) Grandmother Depression Son Arthritis Father Arthritis CAD (coronary artery disease) Mother Hypertension Hyperlipidemia Pacemaker Other Cancer History Items: Heart Disease - Status post pacemaker, Hypertension Paternal Family History: Family History (Last Reviewed 04/14/19 @ 13:54 by Jack Parsons DO) Grandfather CVA (cerebral vascular accident) Depression Brother COPD (chronic obstructive pulmonary disease) Grandmother Depression Son Arthritis Father Arthritis CAD (coronary artery disease) Mother Hypertension Hyperlipidemia Pacemaker Other Cancer History Items: Cancer - Basal cell carcinoma, Heart Disease Lives: Spouse/ Significant Other Smoking Status: Never smoker Alcohol: None Drugs: None Review of Systems - Review of Systems General: Denies: Fever, Night Sweats, Fatigue Cardiovascular: Reports: Chest Discomfort, Chest Discomfort at Rest. Denies: Shortness of Breath, Orthopnea, PND, Peripheral Edema, Palpitations, Lightheadedness, Dizziness, Near Syncope, Syncope Respiratory: Denies: Cough, Sputum Production, Hemoptysis Gastrointestinal: Denies: Hematemesis, Hematochezia, Melena Genitourinary: Denies: Dysuria, Hematuria Skin: Denies: Rash Subjectve: Patient sitting in bed, no acute distress. Objective: Vital Signs Temp Pulse Resp BP Pulse Ox 97.6 F L 51 L 16 163/74 H 96 04/14/19 13:58 04/14/19 14:30 04/14/19 13:58 04/14/19 13:59 04/14/19 13:58 Oxygen Delivery Method Room Air Weight: 168 lb 12.8 oz Body Mass Index (BMI) 25.7 General: Awake, Alert, Oriented x 3 HEENT: PERRL, EOMI, Sclera Non Icteric Neck: Supple, Good ROM, No Lymph Node Enlargement Lungs: Clear to auscultation Cardiovascular: Regular Rhythm, Normal S1, Normal S2, No Murmurs, No Rubs, No Gallops Vascular: No Carotid Bruits, Normal Femoral Pulses, Normal Radial Pulses, Normal Dorsalis Pedal Pulse, Normal Posterior Tibial Pulses Abdomen: Bowel Sounds Present, Soft, Non Tender, No HSM, No Organomegaly Extremities: No Cyanosis, No Clubbing, No edema Neurological: No Focal Motor or Sensory Deficit 04/14/19 10:51: WBC 5.1, RBC 4.58 L, Hgb 14.7, Hct 42.3, MCV 92.4, MCH 32.1 H, MCHC 34.8, Plt Count 220, MPV 8.7, Immature Gran % (Auto) 0.400, Neut % (Auto) 70.4 H, Lymph % (Auto) 14.4 L, [place] % (Auto) 11.6 H, Eos % (Auto) 2.8, Baso % (Auto) 0.4, Absolute Neuts (auto) 3.6, Nucleated RBC % 0 04/14/19 10:51: Sodium 135 L, Potassium 4.2, Chloride 100, Carbon Dioxide 30.0, Anion Gap 5, BUN 23 H, Creatinine 1.00, Est GFR (MDRD) Af Amer 93, Est GFR (MDRD) Non-Af 77, BUN/Creatinine Ratio 23.0 H, Glucose 87, Calcium 8.9, Troponin I < 0.015 04/14/19 14:35: Troponin I < 0.015 Rhythm: EKG: ECHO: Pending Stress Test: Pending Cardiac Cath: PCI: CT Surgery: Holter monitor: EPS: PPM: CXR: Chest CT Scan: Assessment/Plan 1. Chest pain: Patient's chest pain appears to be atypical in nature although he does have significant known coronary artery disease. His last catheterization in October 2018 demonstrated minimal nonobstructive disease of his RCA, left circumflex, and widely patent stents in his diagonal and LAD. No additional stenting was performed I recommended at that time. In addition the patient engaged in fairly heavy activity yesterday and may have had hypertension induced chest pain. He certainly had hypertension upon arrival to the emergency room and continue to do so here. His first troponins are negative x2. I recommended increasing his losartan to 50 mg p.o. twice daily as well as his Imdur to 30 mg p.o. twice daily in an attempt to better control his blood pressure. Once this is adequately controlled and assuming he has no additional troponin release, I recommended he undergo a treadmill echocardiogram to determine if he has hypertensive blood pressure response to exercise, or any evidence of anterior lateral ischemia. If his stress test is grossly abnormal, he may require a repeat diagnostic coronary angiogram. In addition I recommend a repeat 2D echo with Doppler to evaluate for possible pulmonary hypertension, or change in his LV function. If his stress test is negative, he may then be discharged home tomorrow morning or afternoon. 2. Hyperlipidemia: Recommend obtaining a fasting lipid profile. Continue statin based medicines. His LDL should be less than 70. 3. Thank you very much for the opportunity to participate in the cardiac care of your patient. Consultation time took place between 3 PM and 3:30 PM. Code Visit Inpatient E&M: 43732 Init Hosp L2
--- NOTE | 2019-04-14 15:13 | ECHOCS_ITS ---
Reason For Study: Chest Pain Procedure This was a 2D Doppler, Color Flow transthoracic echocardiogram. The study was technically difficult. Contrast injection was performed. Exam performed in department. Left Ventricle Normal size and thickness. The estimated ejection fraction is 55 %. Septal motion consistent with IVCD. Stage 1 diastolic dysfunction. Mid-anteroseptal : Mildly hypokinetic. Anterior [place] : Mildly hypokinetic. Right Ventricle Normal size and thickness. Normal systolic function. Atria Normal left atrium. Normal right atrium. Normal atrial septum. Mitral Valve The mitral valve is structurally normal. No prolapse or stenosis seen. Trivial mitral valve insufficiency. Tricuspid Valve Normal tricuspid valve. Mild (1+) tricuspid valve insufficiency. Right ventricular systolic pressure estimated to be 36 mmHg. Aortic Valve Normal aortic valve. Trisinus/trileaflet aortic valve. Pulmonic Valve Normal pulmonic valve. Mild (1+) pulmonic valve insufficiency. Great Vessels Normal aortic root. Normal arch. Normal inferior vena cava. Inferior vena cava collapse with sniff. Pericardium/Pleural No pericardial effusion. Medication Diluted definity 2ml given slow IV push to enhance endocardial definition. MMode/2D Measurements & Calculations LVIDd: 4.9 cm IVSd: 0.99 cm Ao root diam: 3.1 cm LVIDs: 3.7 cm LVPWd: 0.88 cm RVDd: 3.8 cm FS: 24.7 % LAV(MOD-bp): 32.7 ml LVAd ap4: 29.2 cm2 SV(MOD-sp4): 45.8 ml LAV(MOD-bp) Indexed: 17.3 ml/m2 EDV(MOD-sp4): 93.9 ml LAV(MOD-sp2): 39.8 ml EDV(sp4-el): 98.2 ml LAV(MOD-sp4): 27.9 ml LVAs ap4: 19.6 cm2 ESV(MOD-sp4): 48.1 ml ESV(sp4-el): 48.8 ml EF(MOD-sp4): 48.8 % EF(sp4-el): 50.3 % SV(sp4-el): 49.4 ml LA A4 area: 12.6 cm2 LA dimension(2D): 3.2 cm RA A4 area: 12.2 cm2 Doppler Measurements & Calculations MV E max gt: 57.8 cm/sec Lat Peak E' Gt: 7.6 cm/sec Med Peak E' Gt: 5.6 cm/sec MV A max gt: 72.9 cm/sec E/E' lat: 7.6 E/E' med: 10.4 MV E/A: 0.79 Ao V2 max: 110.0 cm/sec LV V1 max: 78.9 cm/sec PA V2 max: 96.3 cm/sec Ao max P.8 mmHg LV V1 max P.5 mmHg Ao V2 mean: 82.6 cm/sec Ao mean P.9 mmHg Ao V2 VTI: 23.2 cm PI end-d gt: 94.4 cm/sec TR max tg: 275.9 cm/sec TR max P.5 mmHg Interpretation Summary The estimated ejection fraction is 55 %. Mid-anteroseptal : Mildly hypokinetic Anterior [place] : Mildly hypokinetic Trivial mitral valve insufficiency. Mild (1+) tricuspid valve insufficiency. Right ventricular systolic pressure estimated to be 36 mmHg. Stage 1 diastolic dysfunction. Compared to echo report dated 11/26/2016, no appreciable changes noted. The study was technically difficult. Contrast injection was performed. Ordering Physician: Kike Eaton Referring Physician: Tania Jackson Performed By: Brandee Lauren, MARGARITO, RVT
[2019-04-14 15:45] LABS: Cholesterol 151 mg/dL (200); High Density Lipoprotein 47 mg/dL; Triglycerides 177 mg/dL; Very Low Density Lipoprotein 35 mg/dL (5-40)
[2019-04-14] MEDS: Gabapentin 300 MG Capsule PO (15:51)
[2019-04-14] MEDS: Sertraline 50 MG Tablet 25 MG PO (15:51)
--- NOTE | 2019-04-14 21:07 | EKG12_ITS ---
Test Reason : CP ADMISSION Blood Pressure : / mmHG Vent. Rate : 047 BPM Atrial Rate : 047 BPM P-R Int : 162 ms QRS Dur : 102 ms QT Int : 446 ms P-R-T Axes : 059 -62 009 degrees QTc Int : 394 ms Sinus bradycardia Left anterior fascicular block Abnormal ECG When compared with ECG of 14-APR-2019 13:08, MANUAL COMPARISON REQUIRED, DATA IS UNCONFIRMED Confirmed by NORBERTO ANTONIO, CASSIDY ([id number]), video news editor ANA LUISA ALLEN ([id number]) on 04/18/2019 2:17:57 PM Referred By: Jack Parsons Confirmed By:MORENA THORNTON MD
[2019-04-14] MEDS: Albuterol 2.5 MG/3 ML VIAL.NEB. INHALATION (21:27)
[2019-04-14] MEDS: Budesonide Respules 0.5 MG/2 ML AMPUL.NEB. INHALATION (21:27)
[2019-04-14] MEDS: Rosuvastatin Calcium 5 MG Tablet PO (21:36)
[2019-04-14] MEDS: Aspirin 81 MG TAB.CHEW PO (21:36)
[2019-04-14] MEDS: Isosorbide Mononitrate 30 MG Tablet PO (21:36)
[2019-04-14] MEDS: Labetalol 200 MG Tablet PO (21:36)
[2019-04-14] MEDS: Finasteride 5 MG Tablet PO (21:36)
[2019-04-14] MEDS: Calcium Carbonate 500 MG Tablet PO (21:36)
[2019-04-14] MEDS: Losartan Potassium 50 MG Tablet PO (21:36)
--- NOTE | 2019-04-14 21:36 | NURSING ---
This RN was called to patients room for intermittent chest pain. Patient stated chest pain was a 3 on scale of 0-10 with a dull pressure midsternal and that it has been on/off all day. Patients vitals were taken and patient stated pain was a 0 upon completion of vital signs. This RN was called back to patients room again with chest pain 4 out of 0-10 with a dull pressure midsternal. Again pain was brief and rated 0 on scale of 0-10. See mar for scheduled medications given.
[2019-04-15 03:00] VITALS: PULSE 68
[2019-04-15 03:20] VITALS: BP 146/79; PULSE 64; RESP 16; TEMP 36.6; O2SAT 96
--- NOTE | 2019-04-15 05:55 | EKG12_ITS ---
Test Reason : AM EKG Blood Pressure : / mmHG Vent. Rate : 067 BPM Atrial Rate : 067 BPM P-R Int : 160 ms QRS Dur : 102 ms QT Int : 412 ms P-R-T Axes : 062 -65 034 degrees QTc Int : 435 ms Sinus rhythm with occasional Premature ventricular complexes Left anterior fascicular block Abnormal ECG When compared with ECG of 14-APR-2019 21:14, MANUAL COMPARISON REQUIRED, DATA IS UNCONFIRMED Confirmed by NORBERTO ANTONIO, CASSIDY ([id number]), production editor ANA LUISA ALLEN ([id number]) on 04/18/2019 2:11:23 PM Referred By: Jack Parsons Confirmed By:MORENA THORNTON MD
[2019-04-15 06:13] LABS: Cholesterol 152 mg/dL (200); High Density Lipoprotein 42 mg/dL; Magnesium 2.1 mg/dL (1.6-2.6); Triglycerides 189 mg/dL; Very Low Density Lipoprotein 38 mg/dL (5-40)
[2019-04-15 06:34] VITALS: BP 153/89; PULSE 67; RESP 16; TEMP 36.6; O2SAT 95
[2019-04-15] MEDS: Levothyroxine 112 MCG Tablet PO (06:38)
[2019-04-15] MEDS: Losartan Potassium 50 MG Tablet PO (06:39)
[2019-04-15] MEDS: Clopidogrel Bisulfate 75 MG Tablet PO (06:39)
[2019-04-15] MEDS: 0.9% NaCl Peripheral Flush Adult/Peds IV (06:40)
[2019-04-15 07:22] VITALS: PULSE 72
[2019-04-15 07:33] VITALS: PULSE 68; RESP 16; O2SAT 95
[2019-04-15] MEDS: Budesonide Respules 0.5 MG/2 ML AMPUL.NEB. INHALATION (07:33)
[2019-04-15] MEDS: Albuterol 2.5 MG/3 ML VIAL.NEB. INHALATION (07:34)
[2019-04-15 09:28] VITALS: BP 107/81; PULSE 77; RESP 17; TEMP 36.6; O2SAT 95
[2019-04-15] MEDS: Cyanocobalamin 500 MCG Tablet 250 MCG PO (09:34)
[2019-04-15] MEDS: Gabapentin 300 MG Capsule PO (09:34)
[2019-04-15] MEDS: Isosorbide Mononitrate 30 MG Tablet PO (09:35)
[2019-04-15] MEDS: Labetalol 200 MG Tablet PO (09:35)
[2019-04-15] MEDS: Pantoprazole Sodium 20 MG Tablet PO (09:36)
--- NOTE | 2019-04-15 09:53 | PCM.PN.CARD ---
Subjectve: Patient doing well this morning. No 24-hour events. Blood pressure much better controlled. Objective: Vital Signs Temp Pulse Resp BP Pulse Ox 97.8 F 77 17 107/81 H 95 04/15/19 09:28 04/15/19 09:28 04/15/19 09:28 04/15/19 09:28 04/15/19 09:28 Oxygen Delivery Method Room Air Weight: 168 lb 12.8 oz Body Mass Index (BMI) 25.7 Intake and Output for Last 24 Hours 04/13/19 04/14/19 04/15/19 23:59 23:59 23:59 Intake Total 540 / 540 Balance 540 / 540 General: Awake, Alert, Oriented x 3 HEENT: PERRL, EOMI, Sclera Non Icteric Neck: Supple, Good ROM, No Lymph Node Enlargement Lungs: Clear to auscultation Cardiovascular: Regular Rhythm, Normal S1, Normal S2, No Murmurs, No Rubs, No Gallops Vascular: No Carotid Bruits, Normal Femoral Pulses, Normal Radial Pulses, Normal Dorsalis Pedal Pulse, Normal Posterior Tibial Pulses Abdomen: Bowel Sounds Present, Soft, Non Tender, No HSM, No Organomegaly Extremities: No Cyanosis, No Clubbing, No edema Neurological: No Focal Motor or Sensory Deficit 04/14/19 10:51: WBC 5.1, RBC 4.58 L, Hgb 14.7, Hct 42.3, MCV 92.4, MCH 32.1 H, MCHC 34.8, Plt Count 220, MPV 8.7, Immature Gran % (Auto) 0.400, Neut % (Auto) 70.4 H, Lymph % (Auto) 14.4 L, [place] % (Auto) 11.6 H, Eos % (Auto) 2.8, Baso % (Auto) 0.4, Absolute Neuts (auto) 3.6, Nucleated RBC % 0 04/14/19 10:51: Sodium 135 L, Potassium 4.2, Chloride 100, Carbon Dioxide 30.0, Anion Gap 5, BUN 23 H, Creatinine 1.00, Est GFR (MDRD) Af Amer 93, Est GFR (MDRD) Non-Af 77, BUN/Creatinine Ratio 23.0 H, Glucose 87, Calcium 8.9, Troponin I < 0.015 04/14/19 14:35: Troponin I < 0.015 04/14/19 14:35: Triglycerides 177, Cholesterol 151, LDL Cholesterol 69, VLDL Cholesterol 35, HDL Cholesterol 47 04/14/19 18:00: Troponin I < 0.015 04/15/19 05:15: Magnesium 2.1, Triglycerides 189, Cholesterol 152, LDL Cholesterol 72, VLDL Cholesterol 38, HDL Cholesterol 42 Rhythm: EKG: ECHO: LVEF around 55 to 60%, RVSP of 36 mmHg, no change from previous. Stress Test: Negative Cardiac Cath: PCI: CT Surgery: Holter monitor: EPS: PPM: CXR: Chest CT Scan: Medical Necessity - Tobacco Use Smoking Status: Never smoker Assessment/Plan 1. Chest pain: Patient's chest pain appears to be atypical in nature although he does have significant known coronary artery disease. His last catheterization in October 2018 demonstrated minimal nonobstructive disease of his RCA, left circumflex, and widely patent stents in his diagonal and LAD. No additional stenting was performed I recommended at that time. In addition the patient engaged in fairly heavy activity yesterday and may have had hypertension induced chest pain. He certainly had hypertension upon arrival to the emergency room and continue to do so here. His first troponins are negative x2. I recommended increasing his losartan to 50 mg p.o. twice daily as well as his Imdur to 30 mg p.o. twice daily in an attempt to better control his blood pressure. Once this is adequately controlled and assuming he has no additional troponin release, I recommended he undergo a treadmill echocardiogram to determine if he has hypertensive blood pressure response to exercise, or any evidence of anterior lateral ischemia. If his stress test is grossly abnormal, he may require a repeat diagnostic coronary angiogram. His 2D echo Doppler demonstrated an EF around 55 to 60% and RVSP of 36 mmHg, which is not appreciably changed since 2017. His stress echocardiogram was negative for inducible ischemia, negative for chest pain, and appropriate blood pressure response to exercise. Would not recommend repeat catheterization at this time. 2. Hyperlipidemia: Recommend obtaining a fasting lipid profile. Continue statin based medicines. His LDL should be less than 70. 3. Thank you very much for the opportunity to participate in the cardiac care of your patient. Be discharged home with follow-up with Dr. Eaton going forward. Results conveyed to the floor. Code Visit Inpatient E&M: 76357 Subs Hosp L2
--- NOTE | 2019-04-15 10:01 | DCINST_ITS ---
- Discharge Diagnoses Current Active Problems: Current Active and Chronic Problems (Last Reviewed 04/14/19 @ 13:54 by Jack Parsons DO) Central chest pain (Acute) Atherosclerotic heart disease of [place] coronary artery with other forms of angina pectoris (Chronic) CAMERON (2.5 X 38 Promus Synergy) to mid LAD; CAMERON (2.5 X 12 Promus Synergy) to Diagonal per Dr. Eaton @ [facility] [place] 09/07/2018 Hypertension (Chronic) You will use the following diet at home:: No restrictions Your food should be the consistency of: Regular Your liquids should be the consistency of: Regular/Thin Discharge Activity: Return to Normal Activity Weight Bearing Status: Full weight bearing Allergies/Adverse Reactions: Allergies amoxicillin [From Augmentin] Adverse Reaction (Intermediate, Verified 04/14/19 10:52) Nausea/Vom/Diarrhea clavulanic acid [From Augmentin] Adverse Reaction (Intermediate, Verified 04/14/19 10:52) Nausea/Vom/Diarrhea lisinopril Adverse Reaction (Intermediate, Verified 04/14/19 10:52) cough atorvastatin [From Lipitor] Adverse Reaction (Verified 04/14/19 10:52) Pain in joints gemfibrozil [From Lopid] Adverse Reaction (Verified 04/14/19 10:52) Pain in joints niacin Adverse Reaction (Verified 04/14/19 10:52) Other HOT FLASHES Medications to take at Discharge Aspirin [Aspirin, Baby] 81 mg PO QHS 03/20/14 Finasteride [Proscar] 5 mg PO QHS 03/20/14 Magnesium 500 mg PO DAILY 03/20/14 Multivitamins,Therapeutic [Multivitamin] 1 tab PO DAILY 03/20/14 Allergy Shot 1 unit IM QWEEK 08/13/16 Bilberry 375 mg PO QHS 08/13/16 Calcium Carbonate [Calcium] 1,500 mg PO QHS 08/13/16 Cholecalciferol (VIT D3) [Vitamin D3] 2,000 unit PO QHS 08/13/16 omeprazole 20 mg capsule,delayed release 20 mg PO DAILY 09/09/17 psyllium seed (sugar) oral powder 1 tbsp PO DAILY 09/09/17 cyanocobalamin (vit B-12) 500 mcg tablet 250 mcg PO DAILY@0800 tab 06/08/18 Clopidogrel Bisulfate [Plavix] 75 mg PO DAILY 10/30/18 Levothyroxine Sodium [Synthroid] 112 mcg PO QDAY 10/30/18 labetalol 200 mg tablet 200 mg PO BID #180 tab 11/10/18 nitroglycerin 0.4 mg sublingual tablet 0.4 mg SUBLINGUAL Q5-15M PRN #25 tab 11/10/18 budesonide-formoterol HFA 160 mcg-4.5 mcg/actuation aerosol inhaler 2 puff INHALATION BID 12/23/18 fluticasone propionate 50 mcg/actuation nasal spray,suspension 1 spray INTRANASAL DAILY 12/23/18 gabapentin 300 mg capsule 300 mg PO TID #270 cap 01/13/19 rosuvastatin 5 mg tablet 5 mg PO QHS #90 tab 01/28/19 sertraline 25 mg tablet 25 mg PO LUNCH #90 tab 02/02/19 Isosorbide Mononitrate [Imdur] 30 mg PO BID #60 tab 04/15/19 Losartan Potassium [Cozaar] 50 mg PO BID #60 tab 04/15/19 The following prescriptions were given: Losartan Potassium [Cozaar] 50 mg PO BID #60 tab Prescription Printed Isosorbide Mononitrate [Imdur] 30 mg PO BID #60 tab Prescription Printed Primary Care Physician: Tania Jackson MD [Primary Care Provider] - Please follow up with your Primary Care Physician in: in 2 weeks Test Results: Test results from this visit will be discussed in further detail at your follow- up appointment, if applicable. Please Follow Up With: Kike Eaton MD When: as scheduled
--- NOTE | 2019-04-15 15:20 | DS.PCM_ITS ---
Discharge Date and Diagnosis Date of Admission: 04/14/19 Date of Discharge: 04/15/19 - Primary Discharge Diagnosis #1 musculoskeletal chest pain #2 coronary artery disease #3 hyperlipidemia #4 essential hypertension - Secondary Discharge Diagnosis Chronic Problems (Last Reviewed 04/14/19 @ 13:54 by Jack Parsons DO) Atherosclerotic heart disease of [place] coronary artery with other forms of angina pectoris (Chronic) CAMERON (2.5 X 38 [employer]) to mid LAD; CAMERON (2.5 X 12 [employer]) to Diagonal per Dr. Eaton @ [facility] 09/07/2018 Chest pain (Chronic) Stented coronary artery (Chronic 09/07/18) CAMERON (2.5 X 38 [employer]) to mid LAD; CAMERON (2.5 X 12 [employer]) to Diagonal per Dr. Eaton @ [facility] EH (obstructive sleep apnea) (Chronic) Hearing loss (Chronic) Nonrheumatic tricuspid (valve) insufficiency (Chronic) Mild (1+) per echo 11/26/2016. RVSP 35 mmhg. 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 Dunn @ [facility] Hypertension (Chronic) Epistaxis, recurrent (Chronic) BPH (benign prostatic hyperplasia) (Chronic) Hypertension (Chronic) Long-term current use of high risk medication other than anticoagulant (Chronic) Benign prostate hyperplasia (Chronic) Gastroesophageal reflux disease (Chronic) Hyperlipidemia (Chronic) Restless leg syndrome (Chronic) Hospital Course and Treatment Operations: None Procedures: 2-D Echocardiogram, - - Stress echo Summary of Care Provided: The patient is a 78 year old M was seen in the emergency room at [facility] with a chief complaint of intermittent chest pain. Work-up in the emergency room included an EKG which showed a sinus bradycardia without evidence of ischemic changes, chest x-ray was unremarkable, labs including troponin were unremarkable. Patient had a past history of coronary angiogram with stent placement in August 2018. Patient was placed into observation on PCU, serial cardiac enzymes were obtained and were normal. Patient underwent a stress echocardiogram and an echocardiogram-stress echocardiogram was negative for reversible ischemia, patient's echocardiogram showed a normal EF. Patient was seen in consultation by cardiology and his medications were adjusted by cardiology. On 04/15/2019, patient was seen and examined: On examination he appeared in good health and spirits, he is hard of hearing. Vital signs as documented. Skin warm and dry and without overt rashes. Neck without JVD. Lungs clear. Heart exam notable for regular rhythm, normal sounds and absence of murmurs, rubs or gallops. Abdomen unremarkable and without evidence of organomegaly, masses, or abdominal aortic enlargement. Extremities nonedematous. Neuro: Cranial nerves II through XII are grossly intact, no focal motor deficits were noted, sensation to light touch and pinprick intact. Psych: Patient is alert and oriented x3, he does not appear anxious or depressed. On 04/15/2019, patient was seen and examined and felt to be in stable condition for discharge home. - Physical Exam Vital Signs Temp Pulse Resp BP Pulse Ox 97.8 F 77 17 107/81 H 95 04/15/19 09:28 04/15/19 09:28 04/15/19 09:28 04/15/19 09:28 04/15/19 09:28 Oxygen Delivery Method Room Air Weight: 76.566 kg Body Mass Index (BMI) 25.7 Intake and Output for Last 24 Hours 04/13/19 04/14/19 04/15/19 23:59 23:59 23:59 Intake Total 540 / 540 Balance 540 / 540 Laboratory Tests Past 24 Hrs 04/14/19 04/14/19 04/15/19 14:35 18:00 05:15 Magnesium 2.1 Troponin I < 0.015 Triglycerides 177 189 Cholesterol 151 152 LDL Cholesterol 69 72 VLDL Cholesterol 35 38 HDL Cholesterol 47 42 Discharge Activity: Return to Normal Activity Weight Bearing Status: Full weight bearing Home Medications: Medications to take at Discharge Aspirin [Aspirin, Baby] 81 mg PO QHS 03/20/14 Finasteride [Proscar] 5 mg PO QHS 03/20/14 Magnesium 500 mg PO DAILY 03/20/14 Multivitamins,Therapeutic [Multivitamin] 1 tab PO DAILY 03/20/14 Allergy Shot 1 unit IM QWEEK 08/13/16 Bilberry 375 mg PO QHS 08/13/16 Calcium Carbonate [Calcium] 1,500 mg PO QHS 08/13/16 Cholecalciferol (VIT D3) [Vitamin D3] 2,000 unit PO QHS 08/13/16 omeprazole 20 mg capsule,delayed release 20 mg PO DAILY 09/09/17 psyllium seed (sugar) oral powder 1 tbsp PO DAILY 09/09/17 cyanocobalamin (vit B-12) 500 mcg tablet 250 mcg PO DAILY@0800 tab 06/08/18 Clopidogrel Bisulfate [Plavix] 75 mg PO DAILY 10/30/18 Levothyroxine Sodium [Synthroid] 112 mcg PO QDAY 10/30/18 labetalol 200 mg tablet 200 mg PO BID #180 tab 11/10/18 nitroglycerin 0.4 mg sublingual tablet 0.4 mg SUBLINGUAL Q5-15M PRN #25 tab 11/10/18 budesonide-formoterol HFA 160 mcg-4.5 mcg/actuation aerosol inhaler 2 puff INHALATION BID 12/23/18 fluticasone propionate 50 mcg/actuation nasal spray,suspension 1 spray INTRANASAL DAILY 12/23/18 gabapentin 300 mg capsule 300 mg PO TID #270 cap 01/13/19 rosuvastatin 5 mg tablet 5 mg PO QHS #90 tab 01/28/19 sertraline 25 mg tablet 25 mg PO LUNCH #90 tab 02/02/19 Isosorbide Mononitrate [Imdur] 30 mg PO UD #1 tab 04/15/19 Losartan Potassium [Cozaar] 50 mg PO BID #60 tab 04/15/19 Following Prescrptions Were Given to Patient: Losartan Potassium [Cozaar] 50 mg PO BID #60 tab Prescription Printed Isosorbide Mononitrate [Imdur] 30 mg PO UD #1 tab Primary Care Physician: Tania Jackson MD [Primary Care Provider] - Please follow up with your Primary Care Physician in: in 2 weeks Please Follow Up With: Kike Eaton MD When: as scheduled Disposition: Home Minutes spent on discharge:: 31 Patient Condition:: Stable Medical Necessity - Tobacco Use Smoking Status: Never smoker Meaningful Use Info Meaningful Use Diagnoses (Choose all that apply): None applicable Code Visit OBSV E&M: 18442 Observation care discharge
--- NOTE | 2019-04-19 18:48 | ED.RN ---
Contacted pt regarding a phone call related to a lab draw after admit to hospital. States the needle stick sent a lightning bolt feeling to hand and fingers. Stated still has intermittent pain and has appt with PCP tomorrow. Encouraged pt to f/u with patient Advocate jamal. He was very gracious and expressed appreciation for all the care at [facility].
== END 2019-04-15 10:02 | disposition home or self-care (01) ==
LOC: ED 12:59 → PCU 04-15 06:12
PROVIDERS: Internal Medicine Cardiovascular Disease; Emergency Provider Emergency Medicine; Family Provider Internal Medicine; PCP Internal Medicine; Visit Provider Internal Medicine
DX: R07.89 Other chest pain (principal); I25.10 Atherosclerotic heart disease of native coronary artery without angina pectoris; E78.5 Hyperlipidemia, unspecified; I10 Essential (primary) hypertension; I44.4 Left anterior fascicular block; Z95.5 Presence of coronary angioplasty implant and graft; Z79.899 Other long term (current) drug therapy; Z79.82 Long term (current) use of aspirin; Z79.51 Long term (current) use of inhaled steroids; N40.0 Benign prostatic hyperplasia without lower urinary tract symptoms; K21.9 Gastro-esophageal reflux disease without esophagitis; E03.9 Hypothyroidism, unspecified; G25.81 Restless legs syndrome; R00.1 Bradycardia, unspecified; G47.33 Obstructive sleep apnea (adult) (pediatric); M19.90 Unspecified osteoarthritis, unspecified site
CPT/HCPCS: 36415; 71045; 80048; 80061; 83735; 84484; 85025; 93005; 93017; 93306; 93350; 94640; 99218; 99285; Q9957; A4216; C8928; C8929; G0378

== ENCOUNTER → 2019-04-18 11:30 | Outpatient (CLI) | payer MEDICARE, OTHER, SELFPAY ==
[2018-09-08 08:47] VITALS: BMI 28.0
[2019-04-14 13:51] VITALS: BMI 25.7
== END ==
PROVIDERS: Family Provider Internal Medicine; PCP Internal Medicine; Referring Provider Nurse Practitioner Adult Health; Visit Provider Nurse Practitioner Adult Health
DX: E29.1 Testicular hypofunction (principal)
CPT/HCPCS: 36415; 84403

== ENCOUNTER → 2019-05-24 10:28 | Outpatient (CLI) | payer MEDICARE, OTHER, SELFPAY ==
[2018-09-08 08:47] VITALS: BMI 28.0
[2019-04-29 15:01] VITALS: BMI 25.7
== END ==
PROVIDERS: Family Provider Internal Medicine; PCP Internal Medicine; Referring Provider Urology; Visit Provider Urology
DX: E29.1 Testicular hypofunction (principal)
CPT/HCPCS: 36415; 84403

== ENCOUNTER → 2019-06-01 16:10 | Outpatient (CLI) | payer MEDICARE, OTHER, SELFPAY ==
[2018-09-08 08:47] VITALS: BMI 28.0
[2019-06-01 15:00] VITALS: BMI 26.5
[2019-06-01 17:56] LABS: Thyroid Stim Hormone (TSH) 0.47 uIU/mL (0.358-3.74)
== END ==
PROVIDERS: Family Provider Internal Medicine; PCP Internal Medicine; Referring Provider Internal Medicine; Visit Provider Internal Medicine
DX: E03.9 Hypothyroidism, unspecified (principal); R31.9 Hematuria, unspecified
CPT/HCPCS: 36415; 84443

== ENCOUNTER → 2019-09-02 11:46 | Outpatient (CLI) | payer MEDICARE, OTHER, SELFPAY ==
[2018-09-08 08:47] VITALS: BMI 28.0
[2019-09-02 11:07] VITALS: BMI 27.8
[2019-09-02 13:02] LABS: Anion Gap 4 (5-15); BUN 18 mg/dL (7-18); BUN/Creat Ratio 16.7 RATIO (10-20); Calcium,Total 9.1 mg/dL (8.5-10.1); Chloride 101 mmol/L (98-107); Creatinine, Serum 1.08 mg/dL (0.70-1.30); EST Glomerular Filtration Rate 70 mL/min (>60); Est Glom Filt Rate - Afr Amer 85 mL/min (>60); Glucose 94 mg/dL (74-106); Potassium 4.6 mmol/L (3.5-5.1); Sodium Level 135 mmol/L (136-145)
--- NOTE | 2019-09-02 14:15 | RAD_ITS ---
STUDY: X-RAY - PELVIS AND BILATERAL HIPS REASON FOR EXAM: Male, 78 years old. Bilateral hip pain, left worse than right. TECHNIQUE: AP view of the pelvis.? 2 views of the right hip, and 2 views of the left hip were obtained. COMPARISON: None. FINDINGS: There is a non-specific bowel gas pattern. Normal visualized soft tissue structures. There is narrowing with cortical sclerosis and osteophyte formation of the sacroiliac joint consistent with mild degenerative osteoarthritic changes. Normal bilateral superior and inferior pubic rami. Normal pubic symphysis. Normal bilateral ischial tuberosities. Normal visualized right femoral head. There is mild cortical sclerosis with sub-cortical cyst formation of the right acetabulum. There is mild articular joint space narrowing of the right hip. Normal visualized left femoral head. There is mild osteoarthritic spur formation of the left acetabular rim. There is mild articular joint space narrowing of the left hip. RAD/Hips B/L min 2 views w/ Pelvis IMPRESSION: Mild degenerative disease of bilateral hips. No acute fracture or subluxation. Electronically Signed: Vida Alfaro MD at 3:46 EST , Service support ,
== END ==
PROVIDERS: Family Provider Internal Medicine; PCP Internal Medicine; Referring Provider Internal Medicine; Visit Provider Internal Medicine
DX: I10 Essential (primary) hypertension (principal); M25.551 Pain in right hip; M25.552 Pain in left hip
CPT/HCPCS: 36415; 73521; 80048

== ENCOUNTER 2019-10-04 09:26 | Day surgery (SDC) | payer MEDICARE, OTHER, SELFPAY ==
[2018-09-08 08:47] VITALS: BMI 28.0
[2019-07-07 15:35] VITALS: BMI 26.9
[2019-09-02 11:07] VITALS: BMI 27.8
[2019-09-26 14:48] VITALS: BP 146/86; PULSE 72; RESP 16; TEMP 36.4; O2SAT 95; BMI 26.9
--- NOTE | 2019-09-26 15:11 | SDCEKG_ITS ---
Test Reason : Blood Pressure : / mmHG Vent. Rate : 065 BPM Atrial Rate : 065 BPM P-R Int : 150 ms QRS Dur : 096 ms QT Int : 374 ms P-R-T Axes : 062 -64 042 degrees QTc Int : 388 ms Normal sinus rhythm Incomplete right bundle branch block Left anterior fascicular block Poor R wave progression Abnormal ECG Confirmed by RASHAAD ANTONIO, VIVI ([id number]), multimedia editor JERAMIE REAL ([id number] on 09/28/2019 10:37:43 AM Referred By: Valdemar Germain Confirmed By:VIVI NEIL MD
[2019-09-26 15:26] LABS: Hematocrit 41.9 % (40-54); Hemoglobin 14.7 g/dL (13.0-16.5); Mean Corp Hgb Conc 35.1 g/dL (32-36); Mean Corpuscular Hgb 32.8 pg (27.0-32.0); Mean Corpuscular Volume 93.5 fL (80-94); Mean Platelet Vol. 8.8 fl (6.2-12.0); Platelet Count 246 K/mm3 (150-450); RBC Distribution Width CV 11.6 % (11.6-14.6); RBC Distribution Width SD 39.5 fl (35.1-43.9); Red Blood Count 4.48 M/mm3 (4.6-6.2)
[2019-09-26 16:05] LABS: Anion Gap 6 (5-15); BUN 23 mg/dL (7-18); BUN/Creat Ratio 21.7 RATIO (10-20); Calcium,Total 8.3 mg/dL (8.5-10.1); Chloride 102 mmol/L (98-107); Creatinine, Serum 1.06 mg/dL (0.70-1.30); EST Glomerular Filtration Rate 72 mL/min (>60); Est Glom Filt Rate - Afr Amer 87 mL/min (>60); Estimated Creatinine Clearance 56.46 ml/min; Glucose 106 mg/dL (74-106); Potassium 4.3 mmol/L (3.5-5.1); Sodium Level 135 mmol/L (136-145); Thyroid Stim Hormone (TSH) 0.69 uIU/mL (0.358-3.74)
[2019-10-04 09:52] VITALS: BP 134/70; PULSE 66; RESP 16; TEMP 36.6; O2SAT 99; BMI 26.9
[2019-10-04] MEDS: Lactated Ringers 1,000 ML 100 ML IV ×3 (10:01→15:44)
[2019-10-04] MEDS: Mupirocin Ointment 22gm Tube 1 APPLIC (12:41)
--- NOTE | 2019-10-04 14:10 | RAD_ITS ---
STUDY: X-RAY - SKULL REASON FOR EXAM: Male, 78 years old. COCHLEAR IMPLANT POSITIONING CHECK IN OR; -- GOOD PLACEMENT PER SURGEON TECHNIQUE: 1 view(s) of the skull were obtained. COMPARISON: None. FINDINGS: There is no demonstrated soft tissue swelling. Normal osseous calvarium. Skin meg noted posterior scalp. Cochlear implant noted posteriorly. Wire lead appears to terminate over the temporal bone. Normal visualized facial bones. Normal visualized paranasal sinuses. RAD/Skull less than 4 Views IMPRESSION: Limited one view skull series demonstrates cochlear implant electrode projecting over the temporal bone. CT would be more specific if clinically warranted. Electronically Signed: Leon Hester MD at 19:56 EST , Service support ,
--- NOTE | 2019-10-04 15:05 | DCINST_ITS ---
You will use the following diet at home:: No restrictions Discharge Activity: Return to Normal Activity Call your doctor if your incision/area has: Increased Pain/ Swelling Additional Dressing/Incision Instructions:: remove head wrap thursday morning. after that, place the given ointment on the incision twice daily. do not get the incision wet until seen in clinic. Allergies/Adverse Reactions: Allergies amoxicillin [From Augmentin] Adverse Reaction (Intermediate, Verified 10/04/19 09:48) Nausea/Vom/Diarrhea clavulanic acid [From Augmentin] Adverse Reaction (Intermediate, Verified 10/04/19 09:48) Nausea/Vom/Diarrhea lisinopril Adverse Reaction (Intermediate, Verified 10/04/19 09:48) cough atorvastatin [From Lipitor] Adverse Reaction (Verified 10/04/19 09:48) Pain in joints gemfibrozil [From Lopid] Adverse Reaction (Verified 10/04/19 09:48) Pain in joints niacin Adverse Reaction (Verified 10/04/19 09:48) Other HOT FLASHES Medications to take at Discharge Aspirin [Aspirin, Baby] 81 mg PO QHS 03/20/14 Finasteride [Proscar] 5 mg PO QHS 03/20/14 Magnesium 500 mg PO DAILY 03/20/14 Multivitamins,Therapeutic [Multivitamin] 1 tab PO DAILY 03/20/14 Allergy Shot 1 unit IM QWEEK 08/13/16 Bilberry 375 mg PO QHS 08/13/16 Calcium Carbonate [Calcium] 1,500 mg PO QHS 08/13/16 Cholecalciferol (VIT D3) [Vitamin D3] 2,000 unit PO QHS 08/13/16 cyanocobalamin (vitamin B-12) 500 mcg tablet 250 mcg PO DAILY@0800 tab 06/08/18 labetalol 200 mg tablet 200 mg PO BID #180 tab 11/10/18 budesonide-formoterol HFA 160 mcg-4.5 mcg/actuation aerosol inhaler 2 puff INHALATION BID PRN 12/23/18 coenzyme Q10 75 mg capsule 30 mg PO DAILY 06/01/19 losartan 50 mg tablet 50 mg PO BID #180 tab 06/20/19 sertraline 25 mg tablet 25 mg PO BID tab 07/07/19 clopidogrel 75 mg tablet 75 mg PO DAILY #90 tab 07/12/19 rosuvastatin 5 mg tablet 5 mg PO QHS #90 tab 07/12/19 famotidine 20 mg tablet 20 mg PO BID 08/22/19 testosterone cypionate 100 mg/mL intramuscular oil 100 mg IM .2WEEK #10 ml 08/22/19 triamcinolone acetonide 55 mcg nasal spray aerosol 2 spray INTRANASAL DAILY ml 08/22/19 gabapentin 300 mg capsule 300 mg PO TID #270 cap 08/23/19 isosorbide mononitrate 60 mg tablet,extended release 24 hr 60 mg PO BID #180 tab 08/31/19 levothyroxine 112 mcg tablet 112 mcg PO QDAY #90 tab 09/16/19 Nitroglycerin 0.4 mg SL PRN PRN 09/26/19 Wheat Dextrin [Benefiber] 1 ea PO DAILY 09/26/19 Acetaminophen/Codeine #3 [Tylenol#3] 1 tab PO Q6H PRN PRN 3 Days #10 tab 10/04/19 Doxycycline 100 mg PO DAILY #7 cap 10/04/19 The following prescriptions were given: Doxycycline 100 mg PO DAILY #7 cap Prescription Printed Acetaminophen/Codeine #3 [Tylenol#3] 1 tab PO Q6H PRN PRN 3 Days #10 tab PRN Reason: Pain Or Fever Prescription Printed Primary Care Physician: Tania Jackson MD [Primary Care Provider] - Test Results: Test results from this visit will be discussed in further detail at your follow- up appointment, if applicable.
--- NOTE | 2019-10-04 15:07 | OP.PCM_ITS ---
Problem List (1) Sensorineural deafness Status: Chronic Qualifiers: Laterality: bilateral Qualified Code(s): H90.3 - Sensorineural hearing loss, bilateral Report of Operation Date of Procedure: 10/04/19 Pre-Operative Diagnosis: 1. sensorineural hearing loss. 2. open wound of scalp Post-Operative Diagnosis: 1. sensorineural hearing loss. 2. open wound of scalp Surgery/Procedure Performed:: 1. cochlear implantation, left. 2. temporalis fascia graft. 3. adjacent tissue transfer 25 square cm Type of Anesthesia:: General Description of Procedure: on the day of the procedure, after appropriate informed consent was obtained, the patient was brought to the operating room and placed in supine position on the operating table. he was placed under general endotracheal anesthesia by the anesthesiologist. the endotracheal tube was secured, the eyes were taped. the table was rotated 90 degrees toward the surgeon. left sided facial nerve electrodes were placed. the left ear was marked, injected with lidocaine/epinephrine and prepped/draped in sterile fashion. a postauricular incision was made with a #15 blade with an additional superior/posterior limb creating a 5 x 5 cm posteriorly based flap. the periosteum and temporalis fascia was exposed. a T shaped incision was made along the temporal line as well as superiorly/inferiorly. the periosteum was swept away with a andrez periosteal elevator. the spine of henle was exposed. a cortical mastoidectomy was performed with the saber drill. the tegmen, sinodural angle, posterior canal wall, incus and lateral canal were all skeletonized and identified. the facial nerve was traced with irrigation and a sirisha yris. this was confirmed with the nerve monitor. the facial recess was drilled with a sirisha yris and the round window niche was visualized. the recess was very narrow and the newton over the niche was extensive. this newton was carefully drilled away and the round window was located. a well was drilled for the telescope operator/stimulator and a canal was drilled for the electrodes. a tight subperiosteal pocket was developed. the area was irrigated with saline adn the CI 512 device was placed into the well and fit into place. the ground electrode was inserted along the zygomatic root. a straight pick was used to make a linear incision in the round window membrane. the electrode was attempted to be placed into the cochlea. it coiled in the basal turn. it was removed, the stilet straightened and was re-inserted with the stilet in place. this was removed. given the difficulty during placement, an intraoperative x ray was performed. this showed the electrode to be in place in the cochlea. the electrode flange and array were also oriented in the correct position when visualized in the microscope. a temporalis fascia graft was taken and placed to seal the cochleostomy. the facial nerve was again stimulated and found to be intact. the postauricular posteriorly based flap was closed in multi-layers. the periosteum was closed with 3-0 vicryl. the overlying 25 sq cm flap was closed in a zig zag pattern as to not overlap with the periosteal incision. this was done with a combination of 3-0 vicryl and 3-0 nylon. the table was rotated back and a mastoid dressing was placed. the patient was awoken from anesthesia and transferred to the PACU in stable condition.
[2019-10-04 15:17] VITALS: BP 134/70; BP 162/82; PULSE 85; RESP 16; TEMP 36.1; O2SAT 96
[2019-10-04 15:30] VITALS: BP 134/70; BP 163/88; PULSE 74; RESP 16; O2SAT 94
[2019-10-04 15:45] VITALS: BP 134/70; BP 170/86; PULSE 75; RESP 16; O2SAT 92
[2019-10-04 16:00] VITALS: BP 134/70; BP 159/98; PULSE 79; RESP 16; TEMP 36.2; O2SAT 92
[2019-10-04] MEDS: Acetaminophen/Codeine #3 Tablet 1 TABLET PO (17:11)
[2019-10-04 17:36] VITALS: BP 134/70; BP 161/90; PULSE 82; RESP 16; TEMP 36.2; O2SAT 95
== END 2019-10-04 17:49 | disposition home or self-care (01) ==
LOC: SDC 09:26 → AC 09:26
PROVIDERS: Anesthesiology; Family Provider Internal Medicine; PCP Internal Medicine; Referring Provider Otolaryngology; Visit Provider Otolaryngology
PROC: (CPT 69930; principal; 2019-10-04 11:30)
DX: H90.3 Sensorineural hearing loss, bilateral (principal); S01.00XA Unspecified open wound of scalp, initial encounter; I10 Essential (primary) hypertension; E78.00 Pure hypercholesterolemia, unspecified; I27.20 Pulmonary hypertension, unspecified; G25.81 Restless legs syndrome; F32.9 Major depressive disorder, single episode, unspecified; F41.9 Anxiety disorder, unspecified
CPT/HCPCS: 00120; 14021; 69930; 70250; 80048; 84443; 85027; 93005; J7120; J2405

== ENCOUNTER → 2019-11-23 11:20 | Outpatient (CLI) | payer MEDICARE, OTHER, SELFPAY ==
[2018-09-08 08:47] VITALS: BMI 28.0
== END ==
PROVIDERS: PCP Internal Medicine; Referring Provider Nurse Practitioner Family; Visit Provider Nurse Practitioner Family
DX: I49.3 Ventricular premature depolarization (principal)
CPT/HCPCS: 93225; 93226

== ENCOUNTER → 2019-11-24 11:13 | Outpatient (CLI) | payer MEDICARE, OTHER, SELFPAY ==
[2018-09-08 08:47] VITALS: BMI 28.0
[2019-11-23 13:05] VITALS: BMI 26.9
--- NOTE | 2019-11-24 11:35 | RAD_ITS ---
STUDY: X-RAY - LUMBAR SPINE REASON FOR EXAM: Male, 78 years old. Low back pain TECHNIQUE: 2 view(s) of the lumbar spine were obtained. COMPARISON: None FINDINGS: Normal lumbar lordosis. There is no substantial scoliosis. There is a normal alignment of the vertebrae. There is multilevel endplate spondylosis of the lumbar vertebrae. There is multi-level degenerative disc disease with multi-level disc space narrowing, most pronounced at L5/S1 with vacuum disc phenomenon. There is no demonstrated fracture. There is atherosclerotic calcification of the abdominal aorta without a demonstrated aneurysm. RAD/Lumbar Spine 2 or 3 Views IMPRESSION: Degenerative changes of the spine, as detailed above. Electronically Signed: Morales Smith MD at 12:22 EST , Service support ,
== END ==
PROVIDERS: PCP Internal Medicine; Referring Provider Anesthesiology Pain Medicine; Visit Provider Anesthesiology Pain Medicine
DX: M54.9 Dorsalgia, unspecified (principal)
CPT/HCPCS: 72100

== ENCOUNTER → 2019-12-07 10:32 | Outpatient (CLI) | payer MEDICARE, OTHER, SELFPAY ==
[2018-09-08 08:47] VITALS: BMI 28.0
[2019-11-23 13:05] VITALS: BMI 26.9
--- NOTE | 2019-12-07 10:33 | STEWCON_ITS ---
Reason For Study: CHEST PAIN Stress Results Protocol: Jese Protocol WITH DEFINITY Maximum Predicted HR: 143 bpm Target HR: 122 bpm % Maximum Predicted HR: 103 % DurationHeart Rate Stage (mm:ss) (bpm) BP Comment BASELINE 63 168/845 CC DEFINITY TOTAL STAGE 1 3:00 96 170/70 STAGE 2 3:00 114 170/70 STAGE 3 2:30 148 / INCREASED SOB RECOVERY 95 164/82 Stress Duration: 8:30 mm:ss Maximum Stress HR: 148 bpm Baseline Echocardiogram Findings The estimated ejection fraction is 65 %. Stress Echo Wall motion Data Resting WM Intermediate WM Stress WM Resting Wall Motion Wall Motion Stress No regional wall motion No regional wall motion abnormalities noted. abnormalities noted. EKG Data The baseline ECG displays normal sinus rhythm. The patient exercised according to the regular Jese protocol for a total duration of 8:31. The maximum heart rate attained was 150 beats per minute. This was 104% of maximum predicted heart rate. The patient exercised into stage 3 of the Jese protocol. During stress, there were no ST or T wave changes noted to suggest ischemia. No clinical angina was noted. Interpretation Summary The estimated ejection fraction is 65 %. Normal, adequate, treadmill echocardiogram. Negative for ischemia by EKG and echocardiographic criteria. No anginal symptoms noted. Rare PVC noted. Appropriate blood pressure response to exercise. Average exercise capacity for age. Final LVEF is 75%. Decrease sensitivity due to poor echo windows requiring Definity agent. Patient tolerated procedure well. No complications. The study was technically difficult. Contrast injection was performed. Ordering Physician: Kike Eaton Referring Physician: Kike Eaton Performed By: Joleen Puente, MARGARITO, RVT
== END ==
PROVIDERS: PCP Internal Medicine; Referring Provider Internal Medicine Cardiovascular Disease; Visit Provider Internal Medicine Cardiovascular Disease
DX: I49.3 Ventricular premature depolarization (principal); R07.9 Chest pain, unspecified; Z95.5 Presence of coronary angioplasty implant and graft
CPT/HCPCS: 93017; 93350; Q9957; A4216; C8928

== ENCOUNTER → 2020-01-26 08:43 | Outpatient (CLI) | payer MEDICARE, OTHER, SELFPAY ==
[2018-09-08 08:47] VITALS: BMI 28.0
[2020-01-04 12:23] VITALS: BMI 27.0
[2020-01-26 09:33] LABS: AST(SGOT) 18 U/L (15-37); Alanine Aminotransfer ALT/SGPT 23 U/L (16-61); Albumin, Serum 3.6 g/dL (3.2-5.0); Alkaline Phosphatase 90 U/L (45-117); Bilirubin, Direct 0.19 mg/dL (0.00-0.30); Cholesterol 156 mg/dL (200); Globulin 3.1 g/dL (2.2-4.2); High Density Lipoprotein 42 mg/dL; Protein, Total 6.7 g/dL (6.4-8.2); Triglycerides 202 mg/dL; Very Low Density Lipoprotein 40 mg/dL (5-40)
== END ==
PROVIDERS: PCP Internal Medicine; Referring Provider Internal Medicine Cardiovascular Disease; Visit Provider Internal Medicine Cardiovascular Disease
DX: E78.00 Pure hypercholesterolemia, unspecified (principal)
CPT/HCPCS: 36415; 80061; 80076

== ENCOUNTER → 2020-02-08 14:05 | Outpatient (CLI) | payer MEDICARE, OTHER, SELFPAY ==
[2018-09-08 08:47] VITALS: BMI 28.0
[2020-01-04 12:23] VITALS: BMI 27.0
--- NOTE | 2020-02-08 14:08 | RAD_ITS ---
STUDY: X-RAY - CERVICAL SPINE REASON FOR EXAM: Male, 79 years old. Neck pain, bilateral arm pain TECHNIQUE: 4 view(s) of the cervical spine were obtained. COMPARISON: None FINDINGS: Normal anterior atlantoaxial articulation. Normal odontoid process. There is straightening of the normal cervical lordosis. There is multi-level endplate spondylosis. There is multi-level degenerative disc disease with multilevel disc space narrowing. No demonstrated fracture. The soft tissue structures are unremarkable. RAD/Cerv Spine 2 or 3 Views IMPRESSION: Multilevel degenerative changes, no acute findings Electronically Signed: Morales Smith MD at 14:33 EDT , Service support ,
== END ==
PROVIDERS: PCP Internal Medicine; Referring Provider Anesthesiology Pain Medicine; Visit Provider Anesthesiology Pain Medicine
DX: M54.2 Cervicalgia (principal)
CPT/HCPCS: 72040

== ENCOUNTER → 2020-02-29 14:10 | Outpatient (CLI) | payer MEDICARE, OTHER, SELFPAY ==
[2018-09-08 08:47] VITALS: BMI 28.0
[2020-01-04 12:23] VITALS: BMI 27.0
[2020-02-29 13:52] VITALS: BMI 28.6
[2020-02-29 15:03] LABS: PSA,Total - Annual Screen 0.92 ng/mL (0.00-4.00)
[2020-03-07 09:08] LABS: Testosterone, Free 12.11 ng/dL (5.00-21.00)
[2020-03-07 13:31] LABS: Testosterone, % Free 2.83 % (1.50-4.20); Testosterone, Total 428 ng/dL (264-916)
== END ==
PROVIDERS: PCP Internal Medicine; Referring Provider Nurse Practitioner Adult Health; Visit Provider Nurse Practitioner Adult Health
DX: Z12.5 Encounter for screening for malignant neoplasm of prostate (principal); N50.9 Disorder of male genital organs, unspecified
CPT/HCPCS: 36415; 84153; 84402; 84403; G0103

== ENCOUNTER → 2020-06-26 17:57 | Outpatient (CLI) | payer MEDICARE, OTHER, SELFPAY ==
[2020-06-26 08:45] VITALS: BMI 28.0; BMI 28.6
[2020-06-26 14:46] VITALS: BMI 28.6
== END ==
PROVIDERS: PCP Internal Medicine; Referring Provider Nurse Practitioner Family; Visit Provider Nurse Practitioner Family
DX: R05 Cough (principal); J02.9 Acute pharyngitis, unspecified
CPT/HCPCS: 87635; C9803; U0003

== ENCOUNTER → 2020-07-27 11:06 | Outpatient (CLI) | payer MEDICARE, OTHER, SELFPAY ==
[2020-06-26 08:45] VITALS: BMI 28.0
[2020-07-27 10:24] VITALS: BMI 28.8
[2020-07-27 12:32] LABS: AST(SGOT) 17 U/L (15-37); Alanine Aminotransfer ALT/SGPT 24 U/L (16-61); Albumin, Serum 3.5 g/dL (3.2-5.0); Alkaline Phosphatase 86 U/L (45-117); Bilirubin, Direct 0.16 mg/dL (0.00-0.30); Cholesterol 147 mg/dL (200); Globulin 3.4 g/dL (2.2-4.2); High Density Lipoprotein 42 mg/dL; Protein, Total 6.9 g/dL (6.4-8.2); Triglycerides 265 mg/dL; Very Low Density Lipoprotein 53 mg/dL (5-40)
== END ==
PROVIDERS: PCP Internal Medicine; Referring Provider Internal Medicine Cardiovascular Disease; Visit Provider Internal Medicine Cardiovascular Disease
DX: E78.00 Pure hypercholesterolemia, unspecified (principal)
CPT/HCPCS: 36415; 80061; 80076

== ENCOUNTER → 2020-07-30 15:41 | Outpatient (CLI) | payer MEDICARE, OTHER, SELFPAY ==
[2020-06-26 08:45] VITALS: BMI 28.0
[2020-07-30 14:23] VITALS: BMI 28.6
--- NOTE | 2020-07-30 15:43 | RAD_ITS ---
HISTORY: knee pain ADDITIONAL HISTORY: None provided. EXAMINATION/TECHNIQUE: XR Knee Complete 4 Views or More Right weightbearing images performed Number of images including paperwork: 4 COMPARISON: None FINDINGS: BONES: No acute fracture. JOINTS: No subluxation. Mild medial compartment joint space narrowing. SOFT TISSUES: No distinct foreign body. RAD/Knee 4 or More Views IMPRESSION: No acute osseous abnormality. Mild degenerative changes. at 0333 Reported and signed by: Daily Yang MD Electronically Signed: Daily Yang MD at 3:33 EST Tel , Service support ,
--- NOTE | 2020-07-30 15:47 | RAD_ITS ---
HISTORY: knee pain ADDITIONAL HISTORY: None provided. EXAMINATION/TECHNIQUE: XR Knee Complete 4 Views or More Left weightbearing views Number of images including paperwork: 4 COMPARISON: None FINDINGS: BONES: No acute fracture. JOINTS: No subluxation. Mild medial compartment joint space narrowing. SOFT TISSUES: No distinct foreign body. RAD/Knee 4 or More Views IMPRESSION: No acute osseous abnormality. Mild degenerative changes. at 0333 Reported and signed by: Daily Yang MD Electronically Signed: Daily Yang MD at 3:33 EST Tel , Service support ,
== END ==
LOC: MTLAB 15:43 → MTRAD 15:44
PROVIDERS: PCP Internal Medicine; Referring Provider Internal Medicine; Visit Provider Internal Medicine
DX: M25.561 Pain in right knee (principal); M25.562 Pain in left knee
CPT/HCPCS: 73564

== ENCOUNTER 2020-08-06 13:16 | Outpatient (RCR) | payer MEDICARE, OTHER, SELFPAY ==
[2020-06-26 08:45] VITALS: BMI 28.0
[2020-07-30 14:23] VITALS: BMI 28.6
--- NOTE | 2020-08-06 15:48 | HP.PTEVAL ---
Patient's Visit Information IMANI MORA is a 79 year old M referred to Physical Therapy by Dr. Tania Jackson MD with a diagnosis of Bilateral Knee Pain. Date of Evaluation: 08/06/20 Physical Therapist: Leela Luciano DPT - Visit Plan Frequency: 2x /Week Duration: 4 Weeks Plan: Aquatic Therapy-focus on LE and core strength/stabilization - Subjective Patient reports that he started with pain in his hips- sent him to Dr. Flowers who wanted him to do pain mgmt.- Dr. Villegas did injections in both hips about a year ago and then he started having pain in shoulder/neck and had injections in there. Since then he has started to have knee problems. 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 Saw PCP who told him to start using Voltaran on his knees- 2 weeks ago he mowed and when he came back in the house the right knee was hurting so bad down to the ankles. He took Tylenol and Voltaren didn?t help- used ice didn?t help then used a heating pad which seemed to help. He went back to - who did x-rays which showed mild OA and send him to PT. Last week he had a follow up with Bakari who offered injections but he wanted to see if PT would help more. He has numbness in the quads- intermittent- is unsure of the etiology- Dr. Villegas reports its probably his back. He does have back problems- and headaches. He was seeing a chiropractor but it was very expensive so he stopped going to him. He thinks his back is out of whack. He was coming to for Silversneakers but he had stints placed and that slowed him down. The right knee tends to bother him more but they both hurt some days. He wears compression hose all the time- does not wear at night. Worst: 8/10 Agg: being up on it, twisting, bending. Best: 0/10 Eases: heat and rest. Describe the pain as dull and achy. Sleep: disturbed - Objective Posture: FH, RS- can correct but does not maintain. Gait: no significant deviation noted- good arm swing and trunk rotation. SLS: weight shift but unable to SLS due to LOB bilaterally. HR/TR: able with UE A. Sensation: WNL to bilateral gross touch LE. ROM: Lumbar: limited by 50% in all directions with pain, Hip/knee/ankle: WNL. Strength: Core: poor, Hip: 4/5 throughout Knee: 5/5 Ankle: 5/5. Flex: HS: moderate, Gastroc: moderate. Special Test: [facility]: negative - Goals Goal 1:: Patient will be I with HEP and progression Goal Time Frame: 4-6 Weeks Goal 2:: Patient will asc/desc 8 stairs recip with good technique Goal Time Frame: 4-6 Weeks Goal 3:: Patient will maintain proper posture t/o tx session to demo increased core s/s Goal Time Frame: 4-6 Weeks Goal 4:: Patient will report no knee pain for 1 week Goal Time Frame: 4-6 Weeks - Rehabilitation Potential Physical Therapy Diagnosis: Patient presents with hypomobility- he has decreased strength and muscular endurance leading to poor posture and increased pain with ADL's. Rehabilitation Potential: Good - Anticipated Interventions Patient/Client Instruction: Educate patient on: Benefits of Fitness Program Therapeutic Exercise to Include: Strength training, Endurance training, Body mechanics, Postural training, Flexibilty training, Gait and locomotor training, In an aquatic setting, Dynamic Lumbar Stabilization, Scapular Strength/Stabilization For the Purpose of:: To improve muscle performance and motor function Thank you for the opportunity to evaluate your patient. For Medicare and Medicare HMO plans, please review the plan of care and approve it. It will need to be FAXED BACK to us at [phone] for Medicare purposes. For Medicare only, by signing this I certify the plan of care. Please let me know if there are questions or concerns regarding this plan of care. Physician Signature: Date:
--- NOTE | 2020-10-22 10:39 | HP.PT.NRP ---
IMANI MORA was seen in my office for initial evaluation on 08/06/20. The following Plan of Care was established for this patient: Initial Frequency: 2x /Week Initial Duration: 4 Weeks Patient/Client Instruction: Educate patient on: Benefits of Fitness Program Therapeutic Exercise to Include: Strength training, Endurance training, Body mechanics, Postural training, Flexibilty training, Gait and locomotor training, In an aquatic setting, Dynamic Lumbar Stabilization, Scapular Strength/Stabilization For the Purpose of:: To improve muscle performance and motor function This patient was last seen in our office . Pertinent comments regarding their Physical therapy will appear below: Patient presented for his initial evaluation then cancelled all visits due to COVID. Appropriate to be d/c at this time and return to MD for further evaluation. At this point I will be discontinuing this patient from physical therapy. I would be happy to see this patient again in the future if found appropriate by the physician. Thank you! Leela Luciano DPT
== END 2020-08-06 19:00 | disposition home or self-care (01) ==
LOC: PT 13:16
PROVIDERS: PCP Internal Medicine; Referring Provider Internal Medicine; Visit Provider Internal Medicine
DX: M25.561 Pain in right knee (principal); M25.562 Pain in left knee
CPT/HCPCS: 97162

== ENCOUNTER → 2020-08-21 18:33 | Outpatient (CLI) | payer MEDICARE, OTHER, SELFPAY ==
[2020-06-26 08:45] VITALS: BMI 28.0
== END ==
PROVIDERS: PCP Internal Medicine; Referring Provider Internal Medicine; Visit Provider Internal Medicine
DX: U07.1 COVID-19 (principal)
CPT/HCPCS: 87635; C9803; U0003

== ENCOUNTER → 2020-12-03 10:50 | Outpatient (CLI) | payer MEDICARE, OTHER, SELFPAY ==
[2020-06-26 08:45] VITALS: BMI 28.0
[2020-12-03 12:37] LABS: Absolute Lymphocyte Count 0.65 X10^3/uL (0.83-4.51); Absolute Neutrophil Count 5.1 X10^3/uL (2.0-7.7); Basophil# 0.02 X10^3/uL; Basophil% 0.3 % (0-1); Eosinophil# 0.22 X10^3/uL; Eosinophils% 3.3 % (0-5); Hematocrit 47.3 % (40-54); Hemoglobin 15.5 g/dL (13.0-16.5); Lymphocyte # 0.65 X10^3/ul (4.0); Lymphocyte % 9.7 % (19-41); Mean Corp Hgb Conc 32.8 g/dL (32-36); Mean Corpuscular Volume 97.7 fL (80-94); Mean Platelet Vol. 9.5 fl (6.2-12.0); Monocyte% 10.4 % (0-10); NRBC Flagged by Analyzer 0 % (0-5); Platelet Count 257 K/mm3 (150-450); RBC Distribution Width CV 12.2 % (11.6-14.6); RBC Distribution Width SD 43.8 fl (35.1-43.9); Red Blood Count 4.84 M/mm3 (4.6-6.2); White Blood Count 6.7 K/mm3 (4.4-11.0)
[2020-12-03 12:56] LABS: ALB/GLOB Ratio 1.1 RATIO (0.9-2.4); AST(SGOT) 17 U/L (15-37); Alanine Aminotransfer ALT/SGPT 27 U/L (16-61); Albumin, Serum 3.7 g/dL (3.2-5.0); Alkaline Phosphatase 88 U/L (45-117); Anion Gap 5 (5-15); BUN 22 mg/dL (7-18); BUN/Creat Ratio 18.2 RATIO (10-20); Calcium,Total 9.1 mg/dL (8.5-10.1); Chloride 105 mmol/L (98-107); Creatinine, Serum 1.21 mg/dL (0.70-1.30); EST Glomerular Filtration Rate 62 mL/min (>60); Est Glom Filt Rate - Afr Amer 74 mL/min (>60); Globulin 3.4 g/dL (2.2-4.2); Glucose 106 mg/dL (74-106); Potassium 4.3 mmol/L (3.5-5.1); Protein, Total 7.1 g/dL (6.4-8.2); Sodium Level 138 mmol/L (136-145); Thyroid Stim Hormone (TSH) 0.92 uIU/mL (0.358-3.74)
== END ==
PROVIDERS: PCP Internal Medicine; Visit Provider Internal Medicine
DX: I10 Essential (primary) hypertension (principal); R53.83 Other fatigue
CPT/HCPCS: 36415; 80053; 84443; 85025

== ENCOUNTER 2021-01-08 11:00 | Outpatient (RCR) | payer MEDICARE, OTHER, SELFPAY ==
[2020-06-26 08:45] VITALS: BMI 28.0
--- NOTE | 2020-12-13 10:49 | HP.PT.NRP ---
IMANI MORA was seen in my office for initial evaluation on 11/22/20. The following Plan of Care was established for this patient: Initial Frequency: 2x /Week Initial Duration: 4 Weeks Patient/Client Instruction: Educate patient on: Plan of Care For the Purpose of:: To improve muscle performance and motor function Therapeutic Exercise to Include: Strength training, Endurance training, Balance training, Coordination, Agility training, Body mechanics, Postural training, Flexibilty training, Dynamic Lumbar Stabilization For the Purpose of:: To improve muscle performance and motor function, To increase tolerance to activity/condition/position Cryotherapy (ice pack, ice massage): Yes Thermo therapy (hot pack): Yes This patient was last seen in our office . Pertinent comments regarding their Physical therapy will appear below: Patient to continue with PT for lumbar spine and hip pain- d/c knee chart at this time. At this point I will be discontinuing this patient from physical therapy. I would be happy to see this patient again in the future if found appropriate by the physician. Thank you! Leela Luciano DPT
--- NOTE | 2020-12-13 14:21 | HP.PTEVAL2_ITS ---
Patient's Visit Information IMANI MORA is a 79 year old M referred to Physical Therapy by Dr. Tania Vazquez MD with a diagnosis of SACROILITIS AND LESION OF THE SCIATIC NERVE WITH R LE INVOLVEMENT.. Date of Evaluation: 12/13/20 Physical Therapist: Ashlee Sommers, PT, Cert MDT - Visit Plan Frequency: 2x /Week Duration: 4-6 Weeks Plan: US TO RIGHT HIP/ALLERGIST/PEDIATRIC PULMONOLOGIST AREAS, POSTURE CORRECTION/STRENGTHENING, INSTRUCTION IN APPROPRIATE BODY MECHANICS AND ACTIVITY MODIFICATIONS. DLS STARTING WITH A NEUTRAL SPINE PROGRESSING ROM TOLERATED. KRISTOPHER LE ROM, STRETCHING AND STRENGTHENING. HEP INSTRUCTION. - Subjective Subjective: Work/Leisure: RETIRED. Disability: NO. Present symptoms: INTERMITTENT MILD LOW BACK PAIN, SOME LEFT HIP PAIN, A LOT OF R HIP PAIN. R ANKLE AND FOOT/TOE PAIN, NUMBNESS AND TINGLING. RIGHT THIGH AND KNEE PAIN. R KNEE NUMBNESS. ALSO RIGHT LOWER LEG PAIN, NUMBNESS AND TINGLING. MILD L KNEE PAIN. Present since: ABOUT 9 MONOTHS. Pain Scale: WORST 9/10, LEAST 0/10. Currently: 10/31. Commenced as a result of: NO APPARENT REASON. Symptoms at onset: KRISTOPHER HIP PAIN. Worse: DRIVING, STANDING IN CONFUCIANISM, SITTING AFTER STANDING AT CONFUCIANISM, LYING DOWN IN BED. TRYING TO HELP SON WITH CONSTRUCTION. Better: ICE, TYLONOL, REDUCING WEIGHTBEARING ON HIP IN SITTING, LEANING FORWARD IN SITTING. Disturbed sleep: YES. Previous history/Previous treatment: DX'S WITH RIGHT HIP CYST AND L HIP BONE SPUR BY DR. PAULINO. HE WAS THEN REFERRED TO DR. CRAMER FOR INJECTIONS AND THEY HELPED. NOW USING VOLTERON CREAM WHICH IS HELPFUL BUT PAIN IS SIGNIFICANT ENOUGH NOW THAT IT TOOK HIM BACK TO DR. VAZQUEZ. HE WAS ALSO HAVING KRISTOPHER KNEE PAIN AND WAS REFERRED TO PT FOR KNEE PAIN AND IS STILL IN PT. PATIENT REPORTS PT ISN'T HELPING. STATES POOL WAS RECOMMENDED AND HE REFUSED DUE TO FEAR OF WATER. NO BACK SURGERY. NO HIP SURGERY. NO BACK ESTRADA'S THAT PATIENT CAN RE-CALL. Coughing/sneezing/straining: NEGATIVE. Gait: NORMAL. Difficulty initiating urinatin: NO. Accidents: NO. Unexplained weight loss: NO. 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 LOSS OF NORMAL LUMBAR LORDOSIS. PMH/Recent major surgery: HEART STENTS AND BLOCKAGES THAT HAVE NOT BEEN ABLE TO BE TAKEN CARE OF. PROSTRATE SURGERY. COCHLEAR IMPLANT. HTN. - Objective Objective: Sitting/Standing Posture: POOR. Lordosis: REDUCED. Lateral shift: NO. Relevant shift: N/A. Other Observations: INDEP GAIT INTO PT WITHOUT ANY ASSISTIVE DEVICES OR LOB. Motor deficit: KRISTOPHER LE STRENGTH GROSSLY 5/5 WITH MMT'ING EXCEPT R HIP IR/ER GRADED 4/5 BUT PATIENT DENIES PAIN WITH TESTING. Sensory deficit: KRISTOPHER LE'S INTACT. ROM deficit: TIGHT KRISTOPHER HIPS ALL PLANES RIGHT > LEFT. TIGHT KRISTOPHER HS'S AND GASTROC SOLEUS COMPLEX'S. Dural Signs: NEGATIVE KRISTOPHER LE'S. Lumbar mvmt loss: flex - MOD. ext - LINDY. R SG - LINDY. L SG - LINDY. Core strength: FAIR. Palpation: NO ACUTE HIP, SACRAL OR LUMBAR TENDER AREAS. PATIENT REPORTS INTERMITTENT RIGHT HIP AND KNEE TENDERNESS. OTHER: POSITIVE RIGHT CARMINA TEST. OTHER: PATIENT WAS RESISTANT TO HAVING EVALUATION INITIALLY DUE TO THERAPY NOT WORKING FOR HIM SO FAR AND DUE TO THINKING HIS HIP IS THE PROBLEM NOT HIS BACK. DISCUSSED DX'S ON CURRENT PRESCRIPTION AND HOW BACK PT EVALUATION INCLUDES HIPS THEN PATIENT AGREEABLE WITH PROCEEDING AND ULTIMATELY WAS AGREEABLE WITH POC. - Goals Goal 1:: DECREASE C/O BACK AND KRISTOPHER LE SX'S (R LE SX'S MUCH GREATER THAN L) Goal Time Frame: 4-6 Weeks Goal 2:: IMPROVE DRIVING, SITTING, STANDING, LYING, SOCIAL LIFE, TRAVEL, HOMEMAKING AND RECREATIONAL FUNCTION. Goal Time Frame: 4-6 Weeks Goal 3:: INSTRUCT IN PROPHYLAXIS Goal Time Frame: 4-6 Weeks - Anticipated Interventions Patient/Client Instruction: Educate patient on: Condition, Plan of Care, Risk Factors, Benefits of Fitness Program For the Purpose of:: To improve self management Therapeutic Exercise to Include: Strength training, Body mechanics, Postural training, Flexibilty training, Neuromotor development, Dynamic Lumbar Stabilization For the Purpose of:: To decrease pain, To increase ROM, To improve muscle performance and motor function, To increase tolerance to activity/condition/position, To improve ability of physical actions for home/community/work/leisure Cryotherapy (ice pack, ice massage): Yes Thermo therapy (hot pack): Yes Ultrasound (thermal/non thermal): Yes For the Purpose of:: To decrease pain, To improve nutrient delivery to tissue Thank you for the opportunity to evaluate your patient. For Medicare and Medicare HMO plans, please review the plan of care and approve it. It will need to be FAXED BACK to us at [phone] for Medicare purposes. For Medicare only, by signing this I certify the plan of care. Please let me know if there are questions or concerns regarding this plan of care. Physician Signature: Date:
--- NOTE | 2021-01-08 11:36 | HP.PTDCS(2) ---
It has been my pleasure to treat IMANI MORA referred by Dr. Tania Jackson MD, with the diagnosis of SACROILITIS AND LESION OF THE SCIATIC NERVE WITH R LE INVOLVEMENT. for a total of 6 visit(s). Discharge Date: 01/08/21 Please see the following information for a summary of their discharge status. Subjective: I WANT TO GO TO A SPECIALIST. PATIENT REPORTS HE IS DOING HIS HOME EX'S (EXCEPT ISO HIP ADD) AND HE IS PLANNING TO CONTINUE THEM. % Improvement: 0 Objective/Function/Assessment: PATIENT WAS SEEN TODAY FOR RE-ASSESSMENT OF PROGRESS TOWARD THE SET PT GOALS AND THE NEED FOR FURTHER PHYSICAL THERAPY VS READINESS FOR DISCHARGE. PATIENT IS NOT MAKING PROGRESS WITH PT. UPON EXAM TODAY THERE ARE NO SIGNIFICANT CHANGES SINCE INITIAL EVAL. PATIENT IS APPROPRIATE FOR PHYSICIAN RE-ASSESSEMENT AT THIS TIIME. PATIENT IS AGREEABLE. Patient Goals: Decrease Pain, Other Other Goals: FREEDOM FROM PAIN Goal 1:: DECREASE C/O BACK AND KRISTOPHER LE SX'S (R LE SX'S MUCH GREATER THAN L) Goal Progress: Not Progressing Goal 2:: IMPROVE DRIVING, SITTING, STANDING, LYING, SOCIAL LIFE, TRAVEL, HOMEMAKING AND RECREATIONAL FUNCTION. Goal Progress: Not Progressing Goal 3:: INSTRUCT IN PROPHYLAXIS Goal Progress: Not Progressing Plan: D/C DUE TO LACK OF PROGRESS AND AT PATIENTS REQUEST. If there are questions or concerns regarding this patient's physical therapy, please feel free to call me at [phone]. Thank you for the referral of this patient. Sincerely, Ashlee Sommers, PT, Cert MDT
== END 2021-01-08 19:00 | disposition home or self-care (01) ==
LOC: PT 11:00
PROVIDERS: PCP Internal Medicine; Referring Provider Internal Medicine; Visit Provider Internal Medicine
DX: M25.561 Pain in right knee (principal); M25.562 Pain in left knee; M46.1 Sacroiliitis, not elsewhere classified; G57.03 Lesion of sciatic nerve, bilateral lower limbs
CPT/HCPCS: 97035; 97110; 97162; 97164; 97530

== ENCOUNTER → 2021-01-24 09:55 | Outpatient (CLI) | payer MEDICARE, OTHER, SELFPAY ==
[2020-06-26 08:45] VITALS: BMI 28.0
[2021-01-21 08:09] VITALS: BMI 28.6
[2021-01-24 12:54] LABS: AST(SGOT) 16 U/L (15-37); Alanine Aminotransfer ALT/SGPT 28 U/L (16-61); Albumin, Serum 3.6 g/dL (3.2-5.0); Alkaline Phosphatase 103 U/L (45-117); Bilirubin, Direct 0.22 mg/dL (0.00-0.30); Cholesterol 167 mg/dL (200); Globulin 3.3 g/dL (2.2-4.2); High Density Lipoprotein 45 mg/dL; Protein, Total 6.9 g/dL (6.4-8.2); Triglycerides 202 mg/dL; Very Low Density Lipoprotein 40 mg/dL (5-40)
== END ==
PROVIDERS: PCP Internal Medicine; Referring Provider Internal Medicine Cardiovascular Disease; Visit Provider Internal Medicine Cardiovascular Disease
DX: E78.00 Pure hypercholesterolemia, unspecified (principal)
CPT/HCPCS: 36415; 80061; 80076

== ENCOUNTER 2021-02-28 11:30 | Outpatient (RCR) | payer MEDICARE, OTHER, SELFPAY ==
[2020-06-26 08:45] VITALS: BMI 28.0
[2021-01-21 08:09] VITALS: BMI 28.6
--- NOTE | 2021-01-22 14:46 | HP.PTEVAL_ITS ---
Patient's Visit Information IMANI MORA is a 80 year old M referred to Physical Therapy by Dr. Sean Thompson, DO with a diagnosis of L5S1 DDD W/STENOSIS WITH RADICULITIS, PIRIFORMIS SYNDROME. Date of Evaluation: 01/22/21 Physical Therapist: Ashlee Sommers, PT, Cert MDT - Visit Plan Frequency: 2-3x /Week Duration: 4-6 Weeks Plan: US TO RIGHT HIP/NURSE COMPANION AREAS, POSTURE CORRECTION/STRENGTHENING, INSTRUCTION IN APPROPRIATE BODY MECHANICS AND ACTIVITY MODIFICATIONS. DLS STARTING WITH A NEUTRAL SPINE PROGRESSING ROM TOLERATED. KRISTOPHER LE ROM, STRETCHING AND STRENGTHENING. HEP INSTRUCTION. - Subjective Work/Leisure: RETIRED. Disability: NO. Present symptoms: INTERMITTENT MILD LOW BACK PAIN, SOME LEFT HIP PAIN, A LOT OF R HIP PAIN. R ANKLE AND FOOT/TOE PAIN, NUMBNESS AND TINGLING. RIGHT THIGH AND KNEE PAIN. R KNEE NUMBNESS. ALSO RIGHT LOWER LEG PAIN, NUMBNESS AND TINGLING. MILD L KNEE PAIN. NOW ALSO HAS SOME NUMBESS IN THE L THIGH. Present since: ABOUT A YEAR NOW. Pain Scale: WORST 9/10, LEAST 0/10. Currently: 6-7/10. Commenced as a result of: NO APPARENT REASON. Symptoms at onset: KRISTOPHER HIP PAIN. Worse: DRIVING, STANDING IN PENTECOSTALISM, SITTING AFTER STANDING AT PENTECOSTALISM, LYING DOWN IN BED. TRYING TO HELP SON WITH CONSTRUCTION. Better: ICE, TYLONOL, REDUCING WEIGHTBEARING ON HIP IN SITTING, LEANING FORWARD IN SITTING. Disturbed sleep: YES. Previous history/Previous treatment: DX'S WITH RIGHT HIP CYST AND L HIP BONE SPUR BY DR. PAULINO. HE WAS THEN REFERRED TO DR. CRAMER FOR INJECTIONS AND THEY HELPED. NOW USING VOLTERON CREAM WHICH IS HELPFUL BUT PAIN IS SIGNIFICANT ENOUGH NOW THAT IT TOOK HIM TO DR. THOMPSON. HE WAS ALSO HAVING KRISTOPHER KNEE PAIN AND WAS REFERRED TO PT FOR KNEE PAIN AND IS STILL IN PT. PATIENT REPORTS PT ISN'T HELPING. STATES POOL WAS RECOMMENDED AND HE REFUSED DUE TO FEAR OF WATER. NO BACK SURGERY. NO HIP SURGERY. NO BACK ESTRADA'S THAT PATIENT CAN RE-CALL. Coughing/sneezing/straining: NEGATIVE. Gait: NORMAL. Difficulty initiating urinatin: NO. Accidents: NO. Unexplained weight loss: NO. 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 LOSS OF NORMAL LUMBAR LORDOSIS. PMH/Recent major surgery: HEART STENTS AND BLOCKAGES THAT HAVE NOT BEEN ABLE TO BE TAKEN CARE OF. PROSTRATE SURGERY. COCHLEAR IMPLANT. HTN. OTHER: PATIENT REPORTS HE SAW DR. THOMPSON YESTERDAY FOR HIS R KNEE AND KRISTOPHER HIP PAIN AND HE GAVE HIM 3 OPTIONS 1. PT 2. PAIN MGMT 3. DR. NICOLE FOR SURGICAL CONSULT. HE STATES HE CHOSE PT AND PAIN MGMT. PATIENT REPORTS DR. THOMPSON CONCLUDED THAT HIS PAIN IS COMING FROM HIS LOW BACK. PATIENT PLANS TO SCHEDULE FOLLOW UP WITH PAIN MGMT. INJECTIONS IN THE PAST HAVE BEEN IN HIS HIPS NOT LOW BACK FAR PATIENT CAN RECALL. PATIENT REPORTS HE CAN PRETTY MUCH DO WHAT HE WANTS TO DO (EX: MOWING LAWN) BUT HE PAYS FOR IT LATER WITH PAIN IN HIS BACK AND LEGS R>L. - Objective Sitting/Standing Posture: POOR. Lordosis: REDUCED. Lateral shift: NO. Relevant shift: N/A. Other Observations: INDEP GAIT INTO PT WITHOUT ANY ASSISTIVE DEVICES OR LOB. Motor deficit: KRISTOPHER LE STRENGTH GROSSLY 5/5 WITH MMT'ING EXCEPT R HIP IR/ER GRADED 4/5 BUT PATIENT DENIES PAIN WITH TESTING. Sensory deficit: KRISTOPHER LE'S INTACT. ROM deficit: TIGHT KRISTOPHER HIPS ALL PLANES RIGHT > LEFT. TIGHT KRISTOPHER HS'S AND GASTROC SOLEUS COMPLEX'S. Dural Signs: NEGATIVE KRISTOPHER LE'S. Lumbar mvmt loss: flex - MOD. ext - LINDY. R SG - LINDY. L SG - LINDY. PATIENT C/O INREASED R KNEE PAIN WITH LUMBAR ROM TESTING TODAY. Core strength: FAIR. Palpation: NO ACUTE HIP, SACRAL OR LUMBAR TENDER AREAS. PATIE NT REPORTS INTERMITTENT RIGHT HIP AND KNEE TENDERNESS. THERE IS MILD R KNEE EDEMA COMPARED TO LEFT. OTHER: POSITIVE RIGHT CARMINA TEST. - Goals Goal 1:: DECREASE C/O BACK AND KRISTOPHER LE SX'S (R LE SX'S MUCH GREATER THAN L) Goal Time Frame: 4-6 Weeks Goal 2:: IMPROVE WALKING, SITTING, STANDING, SOCIAL LIFE, TRAVEL AND HOMEMAKING/YARDWORK FUNCTION Goal Time Frame: 4-6 Weeks Goal 3:: INSTRUCT IN PROPHYLAXIS Goal Time Frame: 4-6 Weeks - Anticipated Interventions Patient/Client Instruction: Educate patient on: Condition, Plan of Care, Risk Factors For the Purpose of:: To improve self management Therapeutic Exercise to Include: Strength training, Body mechanics, Postural training, Flexibilty training, Neuromotor development, In an aquatic setting, Dynamic Lumbar Stabilization For the Purpose of:: To decrease pain, To increase ROM, To improve muscle performance and motor function, To increase tolerance to activity/co ndition/position, To improve ability of physical actions for home/community/work/leisure Cryotherapy (ice pack, ice massage): Yes Thermo therapy (hot pack): Yes Ultrasound (thermal/non thermal): Yes For the Purpose of:: To decrease pain, To improve nutrient delivery to tissue Thank you for the opportunity to evaluate your patient. For Medicare and Medicare HMO plans, please review the plan of care and approve it. It will need to be FAXED BACK to us at [phone] for Medicare purposes. For Medicare only, by signing this I certify the plan of care. Please let me know if there are questions or concerns regarding this plan of care. Physician Signature: Date:
--- NOTE | 2021-03-07 08:37 | HP.PT.NRP ---
IMANI MORA was seen in my office for initial evaluation on 01/22/21. The following Plan of Care was established for this patient: Initial Frequency: 2-3x /Week Initial Duration: 4-6 Weeks Patient/Client Instruction: Educate patient on: Condition, Plan of Care, Risk Factors For the Purpose of:: To improve self management Therapeutic Exercise to Include: Strength training, Body mechanics, Postural training, Flexibilty training, Neuromotor development, In an aquatic setting, Dynamic Lumbar Stabilization For the Purpose of:: To decrease pain, To increase ROM, To improve muscle performance and motor function, To increase tolerance to activity/condition/position, To improve ability of physical actions for home/community/work/leisure Cryotherapy (ice pack, ice massage): Yes Thermo therapy (hot pack): Yes Ultrasound (thermal/non thermal): Yes For the Purpose of:: To decrease pain, To improve nutrient delivery to tissue This patient was last seen in our office . Pertinent comments regarding their Physical therapy will appear below: PATIENT CANCELLED REMAINING SHANNAN'TS AND SAID HE WILL LET US KNOW IF HE NEEDS PT AGAIN. At this point I will be discontinuing this patient from physical therapy. I would be happy to see this patient again in the future if found appropriate by the physician. Thank you! Ashlee Sommers, PT, Cert MDT
== END 2021-02-28 19:00 | disposition home or self-care (01) ==
LOC: PT 11:30
PROVIDERS: PCP Internal Medicine; Referring Provider Orthopaedic Surgery; Visit Provider Orthopaedic Surgery
DX: M51.17 Intervertebral disc disorders with radiculopathy, lumbosacral region (principal); M48.07 Spinal stenosis, lumbosacral region; G57.00 Lesion of sciatic nerve, unspecified lower limb
CPT/HCPCS: 97035; 97110; 97162; 97530

== ENCOUNTER 2021-05-08 17:39 | Emergency (ER) | payer MEDICARE, OTHER, SELFPAY ==
[2020-06-26 08:45] VITALS: BMI 28.0
[2021-05-08 17:40] VITALS: BP 157/94; PULSE 69; RESP 16; TEMP 36.2; O2SAT 94; BMI 27.8
[2021-05-08] MEDS: Lidocaine 1% (20 ml mdv) 20 ML Vial INFILT (18:34)
[2021-05-08] MEDS: Diphth,Pertuss(Acell),Tet Vac 0.5 ML Vial IM (18:35)
--- NOTE | 2021-05-08 19:38 | EX.ED.UPPERE ---
HPI History of Present Illness Chief Complaint: Laceration Informant: patient Occured/Mechanism Comment: Cut with electric tree trimmer helper Onset/Context/Timing Onset: Today Context: Sudden Onset Timing: Continuous Quality of Pain: Dull Location: Left long finger Worsened by: Nothing Relieved by: Nothing Associated Symptoms Associated Symptoms: Negative for Parasthesia and Weakness Narrative Narrative: Patient presents with a laceration to his left middle finger that occurred today. Patient was using an electric tree trimmer helper when he accidentally cut his finger. Patient is on Plavix. Patient states bleeding has been persistent. Patient denies any paresthesias or weakness. Patient states it has been approximately 25 years since his last tetanus shot. Patient describes his pain as dull. Patient states nothing makes it better nothing makes it worse. [facility] Medical History (Updated 05/08/21 @ 19:[address] Jack Rankin, DO) Anxiety Arthritis Atherosclerotic heart disease of [place] coronary artery with other forms of angina pectoris Back pain BPH (benign prostatic hyperplasia) Cochlear implant in place Crohns disease Essential hypertension Gastroesophageal reflux disease Hay fever Hearing loss Hyperlipidemia Hypothyroidism Malaise and fatigue Nonrheumatic tricuspid (valve) insufficiency EH (obstructive sleep apnea) Pre-operative cardiovascular exam, new EKG abnormalities c/w ischemia Premature ventricular contractions Restless leg syndrome Screening for intestinal cancer Sensorineural deafness Shoulder pain Thyroid disease Home Medications aspirin 81 mg PO QHS 03/20/14 [History Last Taken 09/25/19] finasteride 5 mg PO QHS 03/20/14 [History Last Taken 04/13/19 22:00] magnesium 500 mg PO DAILY 03/20/14 [History Last Taken 04/14/19] multivitamin with folic acid 1 tab PO DAILY 03/20/14 [History Last Taken 04/13/19 22:00] Allergy Shot 1 unit IM QWEEK 08/13/16 [History Last Taken 04/08/19] bilberry 375 mg PO QHS 08/13/16 [History Last Taken 04/13/19 22:00] calcium carbonate 1,500 mg PO QHS 08/13/16 [History Last Taken 04/13/19 22:00] cholecalciferol (vitamin D3) 2,000 unit PO QHS 08/13/16 [History Last Taken 04/13/19 22:00] cyanocobalamin (vitamin B-12) 500 mcg tablet 250 mcg PO DAILY@0800 tab 09/18/18 [History Last Taken 04/14/19] coenzyme Q10 75 mg capsule 30 mg PO DAILY 06/01/19 [History Last Taken Unknown] famotidine 20 mg tablet 20 mg PO BID 08/22/19 [History Last Taken 10/04/19 07:00] testosterone cypionate 100 mg/mL intramuscular oil 100 mg IM .2WEEK #10 ml 08/22/19 [History Last Taken Unknown] triamcinolone acetonide 55 mcg nasal spray aerosol 2 spray INTRANASAL DAILY ml 08/22/19 [History Last Taken Unknown] wheat dextrin 1 ea PO DAILY 09/26/19 [History Last Taken Unknown] diclofenac sodium 1 % topical gel 2 g TOPICAL ONCE 04/30/20 [History Last Taken Unknown] Flucelvax Quad (PF) 60 mcg (15 mcg x 4)/0.5 mL IM syringe 0.5 ml IM ONCE #0.5 ml NS 07/17/20 [Clinic Last Taken Unknown] losartan 100 mg tablet 100 mg PO DAILY #90 tab 07/30/20 [Rx Last Taken Unknown] fluticasone propionate 115 mcg-salmeterol 21 mcg/actuation HFA inhaler 2 puff INHALATION BID #8 g 08/30/20 [Rx Last Taken Unknown] clopidogrel 75 mg tablet 75 mg PO DAILY #90 tab 12/11/20 [Rx Last Taken Unknown] levothyroxine 112 mcg tablet 112 mcg PO QDAY #90 tab 12/11/20 [Rx Last Taken Unknown] rosuvastatin 5 mg tablet 5 mg PO QHS #90 tab 12/11/20 [Rx Last Taken Unknown] labetalol 200 mg tablet 200 mg PO BID #180 tab 12/12/20 [Rx Last Taken Unknown] sertraline 25 mg tablet 25 mg PO DAILY 01/21/21 [History Last Taken Unknown] gabapentin 300 mg capsule 300 mg PO .QID #360 cap 02/19/21 [Rx Last Taken Unknown] isosorbide mononitrate 60 mg tablet,extended release 24 hr 60 mg PO BID #1 tab 02/26/21 [Rx Last Taken Unknown] Allergy/AdvReac Type Severity Reaction Status Date / Time amoxicillin [From Augmentin] AdvReac Intermediate Nausea/Vom/ Verified 05/08/21 17:42 Diarrhea clavulanic acid AdvReac Intermediate Nausea/Vom/ Verified 05/08/21 17:42 [From Augmentin] Diarrhea lisinopril AdvReac Intermediate cough Verified 05/08/21 17:42 atorvastatin [From Lipitor] AdvReac Pain in Verified 05/08/21 17:42 joints gemfibrozil [From Lopid] AdvReac Pain in Verified 05/08/21 17:42 joints niacin AdvReac Other Verified 05/08/21 17:42 Family History Grandfather CVA (cerebral vascular accident) Depression Brother COPD (chronic obstructive pulmonary disease) Grandmother Depression Son Arthritis Father Arthritis CAD (coronary artery disease) Mother Hypertension Hyperlipidemia Pacemaker Other Cancer Surgical History eye lesion removal H/O hemorrhoidectomy H/O vasectomy History of coronary artery stent placement (09/07/18) History of left heart catheterization (11/12/18) History of prostate surgery Hx of appendectomy Social History household members: spouse housing: house current occupational status: retired pets and animals: No Smoking Status: Never smoker second hand exposure: No alcohol intake: never substance use type: does not use caffeine: No what type of physical activity do you participate in: walking frequency: 5-6 times per week ROS ROS ED Constitutional Constitutional ED: Denies chills or fever(s) Eyes Eyes: Denies blurry vision or change in vision ENT ENT ED: Denies rhinorrhea or sore throat Cardiovascular Cardiovascular: Denies chest pain or palpitations Respiratory/Chest Respiratory/Chest: Denies cough or dyspnea Gastrointestinal Gastrointestinal: Denies nausea or vomiting Genitourinary Genitourinary ED: Denies dysuria or hematuria Musculoskeletal Musculoskeletal: Denies back pain or neck pain Integumentary Denies abscess or rash Neurologic Neurologic: Denies headache(s) or weakness Allergic/Immunologic Allergic/Immunologic ED: Denies mouth swelling or urticaria EXAM Physical Exam Const Vital Signs: 05/08/21 17:40 Temperature 97.2 F L Temperature Source Temporal Pulse Rate 69 Respiratory Rate 16 Blood Pressure 157/94 H Blood Pressure Mean 115 Pulse Ox 94 Oxygen Delivery Method Room Air Positive well nourished and well developed General Appearance ED: well developed HEENT Reports moist mucous membranes Neck full ROM Extremity normal to inspection and full ROM Neuro oriented x3, CN's II-XII intact bilaterally, moves all extremities, no focal motor deficits and no sensory deficits noted Sensorium / Orientation: alert Skin Skin Narrative: There is a 2 cm curvilinear laceration over the pad of the left long finger. There is no foreign body noted. There is some mild bleeding noted. There is full range of motion. There is no laxity appreciated. Sensation was intact to light touch in all digits. Capillary refill was less than 2 seconds in all digits. MDM MDM MDM Narrative Medical decision making narrative: The wound was cleaned and irrigated with copious amounts of normal saline. The wound was anesthetized with 1% plain lidocaine via digital block. The wound was closed with 2 simple interrupted #4-0 nylon sutures under sterile technique. Patient tolerated the procedure well. Bacitracin dressing was applied. Patient was given a tetanus booster. Patient was instructed to keep the wound clean and dry. Patient was instructed to follow-up with his primary care physician in 5 days for wound recheck and suture removal. Patient and spouse understood and were agreeable with the plan. All questions were answered. Procedures Lacerations Left long finger: Length: 2 cm Depth: Sub Q Shape: Linear Prep: Sterile Conditions and Chlorhexadine Laceration repair: Digital block, Irrigated, Lidocaine and Wound explored Irrigated (ml): 60 Number of Sutures/Chan: 2 Suture Information: Ethilon, Simple and 4-0 Discharge Plan Triage Chief Complaint: Laceration ED Provider: Jack Rankin Dx/Rx/DC Orders Clinical Impression: Laceration of left middle finger Instructions: ED Laceration, Hand: All Closures Prescriptions: No Action Ultra CoQ10 75 mg capsule 30 mg PO DAILY RF: 0 triamcinolone acetonide 55 mcg aerosol,spray 2 spray INTRANASAL DAILY RF: 0 testosterone cypionate 100 mg/mL oil 100 mg IM .2WEEK Qty: 10 RF: 0 famotidine [Pepcid] 20 mg tablet 20 mg PO BID RF: 0 Flucelvax Quad 9586-8143 (PF) 60 mcg (15 mcg x 4)/0.5 mL syringe 0.5 ml IM ONCE Qty: 0.5 RF: 0 diclofenac sodium 1 % gel 2 g TOPICAL ONCE RF: 0 sertraline 25 mg tablet 25 mg PO DAILY RF: 0 aspirin 81 MG tablet,chewable 81 mg PO QHS RF: 0 magnesium 250 MG tablet 500 mg PO DAILY RF: 0 finasteride 5 MG tablet 5 mg PO QHS RF: 0 multivitamin with folic acid 1 TABLET tablet 1 tab PO DAILY RF: 0 cyanocobalamin (vitamin B-12) 500 mcg tablet 250 mcg PO DAILY@0800 RF: 0 calcium carbonate 600 MG tablet 1,500 mg PO QHS RF: 0 bilberry 100 MG capsule 375 mg PO QHS RF: 0 cholecalciferol (vitamin D3) 1,000 UNIT tablet 2,000 unit PO QHS RF: 0 Allergy Shot 1 unit IM QWEEK RF: 0 wheat dextrin 1 EACH powder in packet 1 ea PO DAILY RF: 0 losartan 100 mg tablet 100 mg PO DAILY Qty: 90 RF: 3 Advair HFA 115-21 mcg/actuation HFA aerosol inhaler 2 puff INHALATION BID Qty: 8 RF: 1 levothyroxine 112 mcg tablet 112 mcg PO QDAY Qty: 90 RF: 1 rosuvastatin 5 mg tablet 5 mg PO QHS Qty: 90 RF: 3 clopidogrel 75 mg tablet 75 mg PO DAILY Qty: 90 RF: 3 labetalol 200 mg tablet 200 mg PO BID Qty: 180 RF: 4 gabapentin 300 mg capsule 300 mg PO .QID Qty: 360 RF: 2 isosorbide mononitrate 60 mg tablet extended release 24 hr 60 mg PO BID Qty: 1 RF: 0 Primary Care Provider: Tania Jackson Referrals: Tania Jackson MD [Primary Care Provider] - 5 Days for suture removal Disposition Disposition: Home, Self Care
== END 2021-05-08 20:09 | disposition home or self-care (01) ==
PROVIDERS: Emergency Provider Emergency Medicine; PCP Internal Medicine
DX: S61.213A Laceration without foreign body of left middle finger without damage to nail, initial encounter (principal); W29.3XXA Contact with powered garden and outdoor hand tools and machinery, initial encounter; Y92.89 Other specified places as the place of occurrence of the external cause; Y99.8 Other external cause status; E03.9 Hypothyroidism, unspecified; E78.5 Hyperlipidemia, unspecified; F41.9 Anxiety disorder, unspecified; G47.33 Obstructive sleep apnea (adult) (pediatric); I10 Essential (primary) hypertension; I25.10 Atherosclerotic heart disease of native coronary artery without angina pectoris; K21.9 Gastro-esophageal reflux disease without esophagitis; K50.90 Crohn's disease, unspecified, without complications; N40.0 Benign prostatic hyperplasia without lower urinary tract symptoms; Z79.51 Long term (current) use of inhaled steroids; Z79.82 Long term (current) use of aspirin; Z79.899 Other long term (current) drug therapy; Z23 Encounter for immunization
CPT/HCPCS: 12001; 90471; 90715; 99283

== ENCOUNTER → 2021-07-10 14:04 | Outpatient (CLI) | payer MEDICARE, OTHER, SELFPAY ==
[2020-06-26 08:45] VITALS: BMI 28.0
[2021-07-10 16:52] LABS: Absolute Lymphocyte Count 0.61 X10^3/uL (0.83-4.51); Absolute Neutrophil Count 3.8 X10^3/uL (2.0-7.7); Basophil# 0.03 X10^3/uL; Basophil% 0.6 % (0-1); Eosinophil# 0.24 X10^3/uL; Eosinophils% 4.5 % (0-5); Hematocrit 44.7 % (40-54); Lymphocyte # 0.61 X10^3/ul (0.83-4.51); Lymphocyte % 11.4 % (19-41); Mean Corp Hgb Conc 33.6 g/dL (32-36); Mean Corpuscular Hgb 32.8 pg (27.0-32.0); Mean Corpuscular Volume 97.6 fL (80-94); Mean Platelet Vol. 9.4 fl (6.2-12.0); Monocyte# 0.67 X10^3/uL; Monocyte% 12.5 % (0-10); NRBC Flagged by Analyzer 0 % (0-5); Neutrophil # 3.78 X10^3/uL (2.7-7.7); Neutrophil % 70.8 % (47-70); Platelet Count 264 K/mm3 (150-450); RBC Distribution Width CV 11.6 % (11.6-14.6); RBC Distribution Width SD 41.6 fl (35.1-43.9); Red Blood Count 4.58 M/mm3 (4.6-6.2); White Blood Count 5.3 K/mm3 (4.4-11.0)
[2021-07-10 16:58] LABS: BUN 19 mg/dL (7-18); Creatinine, Serum 1.19 mg/dL (0.70-1.30); Glucose 110 mg/dL (74-106)
[2021-07-10 16:59] LABS: Anion Gap 5 (5-15); Calcium,Total 9.1 mg/dL (8.5-10.1); Chloride 104 mmol/L (98-107); EST Glomerular Filtration Rate 63 mL/min (>60); Est Glom Filt Rate - Afr Amer 76 mL/min (>60); Potassium 4.5 mmol/L (3.5-5.1); Sodium Level 140 mmol/L (136-145)
== END ==
PROVIDERS: PCP Internal Medicine; Referring Provider Internal Medicine; Visit Provider Internal Medicine
DX: I10 Essential (primary) hypertension (principal); K21.9 Gastro-esophageal reflux disease without esophagitis
CPT/HCPCS: 36415; 80048; 85025

== ENCOUNTER → 2021-07-22 08:43 | Outpatient (CLI) | payer MEDICARE, OTHER, SELFPAY ==
[2020-06-26 08:45] VITALS: BMI 28.0
[2021-07-22 11:05] LABS: AST(SGOT) 19 U/L (15-37); Alanine Aminotransfer ALT/SGPT 24 U/L (16-61); Albumin, Serum 3.4 g/dL (3.2-5.0); Alkaline Phosphatase 91 U/L (45-117); Bilirubin, Direct 0.24 mg/dL (0.00-0.30); Cholesterol 152 mg/dL (200); Globulin 3.4 g/dL (2.2-4.2); High Density Lipoprotein 35 mg/dL; Protein, Total 6.8 g/dL (6.4-8.2); Triglycerides 277 mg/dL; Very Low Density Lipoprotein 55 mg/dL (5-40)
== END ==
PROVIDERS: PCP Internal Medicine; Referring Provider Internal Medicine Cardiovascular Disease; Visit Provider Internal Medicine Cardiovascular Disease
DX: E78.00 Pure hypercholesterolemia, unspecified (principal)
CPT/HCPCS: 36415; 80061; 80076

== ENCOUNTER → 2022-01-27 | Outpatient (CLI) | payer MEDICARE, OTHER, SELFPAY ==
[2021-08-07 14:29] VITALS: BMI 28.0
[2022-01-27 10:37] LABS: AST(SGOT) 21 U/L (15-37); Alanine Aminotransfer ALT/SGPT 35 U/L (16-61); Albumin, Serum 3.7 g/dL (3.2-5.0); Alkaline Phosphatase 88 U/L (45-117); Cholesterol 166 mg/dL (200); Globulin 3.1 g/dL (2.2-4.2); High Density Lipoprotein 35 mg/dL; Protein, Total 6.8 g/dL (6.4-8.2); Triglycerides 260 mg/dL; Very Low Density Lipoprotein 52 mg/dL (5-40)
== END | disposition home or self-care (01) ==
LOC: MTLAB 08:08
PROVIDERS: PCP Internal Medicine; Referring Provider Nurse Practitioner Family; Visit Provider Nurse Practitioner Family
DX: E78.00 Pure hypercholesterolemia, unspecified (principal)
CPT/HCPCS: 36415; 80061; 80076

== ENCOUNTER → 2022-03-17 | Outpatient (CLI) | payer MEDICARE, OTHER, SELFPAY ==
[2021-08-07 14:29] VITALS: BMI 28.0
--- NOTE | 2022-03-17 11:15 | RAD_ITS ---
STUDY: LUMBOSACRAL SPINE X-RAY SERIES--3 VIEWS OF 2329 HOURS ON 03/17/2022 REASON FOR EXAM: 81-year-old male with low back pain. TECHNIQUE: 3. view(s) of the lumbar spine were obtained. COMPARISON: None FINDINGS: Mild demineralization. Straightening of the lumbar spine that may be indicative of muscle spasm. No fractures or subluxations. Marked narrowing of the L5-S1 intervertebral disc space with a mild vacuum phenomenon. No osseous lytic, sclerotic, or mass lesions. In the lateral view, a density overlies the L3 vertebra, which is not present in the AP view. Intact pedicles, processes and facets. Heavily calcified abdominal aorta without evidence of aneurysmal dilatation. RAD/Lumbar Spine 2 or 3 Views IMPRESSION: 1. Mild demineralization. 2. Straightening of the lumbar spine that may be indicative of muscle spasm. 3. No vertebral body fractures or subluxations. 4. Marked narrowing of the L5-S1 intervertebral disc space with a mild vacuum phenomenon. 5. No evidence of other abnormalities. 6. Heavily calcified abdominal aorta without evidence of aneurysmal dilatation. Electronically Signed: Evangelist Herzog MD at 3:02 EDT ,
--- NOTE | 2022-03-17 11:15 | RAD_ITS ---
STUDY: X-RAY - PELVIS AND RIGHT HIP REASON FOR EXAM: Male, 81 years old. R HIP PAIN TECHNIQUE: 3 views of the pelvis and hip. COMPARISON: X-rays of the pelvis and hips 01/21/2021. FINDINGS: No fracture demonstrated. Femoral heads are normal contour. No dislocation at the hips. Mild degenerative changes of both hips, symmetric bilaterally. The sacroiliac joints are symmetric. RAD/HIP, UNI W/ Pelvis 2-3 Views IMPRESSION: No acute findings. Mild degenerative changes of the hips. Electronically Signed: Joleen Lizarraga MD at 3:25 EDT ,
== END | disposition home or self-care (01) ==
LOC: RAD 11:13
PROVIDERS: PCP Internal Medicine; Referring Provider Anesthesiology Pain Medicine; Visit Provider Anesthesiology Pain Medicine
DX: M51.37 Other intervertebral disc degeneration, lumbosacral region (principal); M47.895 Other spondylosis, thoracolumbar region
CPT/HCPCS: 72100; 73502

== ENCOUNTER 2022-04-17 10:57 | Day surgery (SDC) | payer MEDICARE, OTHER, SELFPAY ==
[2022-03-26 12:12] VITALS: BMI 28.0
--- NOTE | 2022-04-10 15:49 | EKG12_ITS ---
Test Reason : PRE OP Blood Pressure : / mmHG Vent. Rate : 064 BPM Atrial Rate : 064 BPM P-R Int : 120 ms QRS Dur : 102 ms QT Int : 384 ms P-R-T Axes : 030 -64 069 degrees QTc Int : 396 ms Normal sinus rhythm Left anterior fascicular block Abnormal ECG Confirmed by KAYLA ANTONIO, LEE ([id number]), editorial clerk LAUREN ADAMS ([id number]) on 04/11/2022 8:18:36 AM Referred By: CARLOS Confirmed By:LEE GARZA MD
[2022-04-10 17:37] LABS: Hematocrit 43.8 % (40-54); Hemoglobin 14.7 g/dL (13.0-16.5); Mean Corp Hgb Conc 33.6 g/dL (32-36); Mean Corpuscular Hgb 32.2 pg (27.0-32.0); Mean Corpuscular Volume 96.1 fL (80-94); Platelet Count 275 K/mm3 (150-450); RBC Distribution Width CV 13.1 % (11.6-14.6); RBC Distribution Width SD 46.5 fl (35.1-43.9); Red Blood Count 4.56 M/mm3 (4.6-6.2); White Blood Count 5.1 K/mm3 (4.4-11.0)
[2022-04-10 18:04] LABS: Anion Gap 4 (5-15); BUN 26 mg/dL (7-18); BUN/Creat Ratio 21.8 RATIO (10-20); Chloride 104 mmol/L (98-107); Creatinine, Serum 1.19 mg/dL (0.70-1.30); EST Glomerular Filtration Rate 63 mL/min (>60); Est Glom Filt Rate - Afr Amer 76 mL/min (>60); Glucose 93 mg/dL (74-106); Sodium Level 138 mmol/L (136-145)
[2022-04-10 19:25] LABS: Thyroid Stim Hormone (TSH) 0.29 uIU/mL (0.358-3.74)
[2022-04-17] MEDS: Lactated Ringers 1,000 ML 15 ML IV ×2 (11:10→14:40)
[2022-04-17 11:44] VITALS: BP 140/67; PULSE 67; RESP 16; TEMP 36.6; O2SAT 98; BMI 27.4
--- NOTE | 2022-04-17 12:06 | PCM.HP.BLA ---
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 Required: No Is patient in pain?: No Allergies amlodipine [From Norvasc] Adverse Reaction (Intermediate, Verified 04/10/22 14:35) upset stomachamoxicillin [From Augmentin] Adverse Reaction (Intermediate, Verified 04/10/22 14:35) Nausea/Vom/Diarrheaclavulanic acid [From Augmentin] Adverse Reaction (Intermediate, Verified 04/10/22 14:35) Nausea/Vom/Diarrhealisinopril Adverse Reaction (Intermediate, Verified 04/10/22 14:35) coughatorvastatin [From Lipitor] Adverse Reaction (Verified 04/10/22 14:35) Pain in jointsgemfibrozil [From Lopid] Adverse Reaction (Verified 04/10/22 14:35) Pain in jointsniacin Adverse Reaction (Verified 04/10/22 14:35) Other Medications aspirin 81 mg chewable tablet 81 mg PO QHS Heart 03/20/14 [History Confirmed 04/10/22] magnesium 250 mg tablet 500 mg PO DAILY Vitamin 03/20/14 [History Confirmed 04/10/22] multivitamin with folic acid 400 mcg tablet 1 tab PO DAILY Vitamin 03/20/14 [History Confirmed 04/10/22] bilberry 100 mg capsule 375 mg PO QHS Eye function 08/13/16 [History Confirmed 04/10/22] calcium carbonate 600 mg calcium (1,500 mg) tablet 1,500 mg PO QHS vitamin 08/13/16 [History Confirmed 04/10/22] cholecalciferol (vitamin D3) 25 mcg (1,000 unit) tablet 2,000 unit PO QHS Vitamin 08/13/16 [History Confirmed 04/10/22] cyanocobalamin (vitamin B-12) 500 mcg tablet 250 mcg PO DAILY@0800 Vitamin 06/08/18 [History Confirmed 04/10/22] coenzyme Q10 75 mg capsule (Ultra CoQ10) 30 mg PO DAILY 06/01/19 [History Confirmed 04/10/22] famotidine 20 mg tablet (Pepcid) 20 mg PO BID 08/22/19 [History Confirmed 04/10/22] triamcinolone acetonide 55 mcg nasal spray aerosol 2 spray intranasal DAILY 08/22/19 [History Confirmed 04/10/22] wheat dextrin 3 gram/3.5 gram oral powder packet 1 ea PO DAILY 09/26/19 [History Confirmed 04/10/22] diclofenac sodium 1 % topical gel 2 g topical PRN PRN Pain 07/30/21 [History Confirmed 04/10/22] losartan 100 mg tablet 100 mg PO DAILY #90 tabs 09/12/21 [Rx Confirmed 04/10/22] testosterone cypionate 100 mg/mL intramuscular oil 100 mg IM Q2W #10 mL 10/29/21 [History Confirmed 04/10/22] hydrochlorothiazide 25 mg tablet 12.5 mg PO DAILY #90 tabs 11/28/21 [Rx Confirmed 04/10/22] clopidogrel 75 mg tablet 75 mg PO DAILY Heart #90 tabs 01/13/22 [Rx Confirmed 04/10/22] labetalol 200 mg tablet 200 mg PO BID Blood pressure #180 tabs 01/13/22 [Rx Confirmed 04/10/22] levothyroxine 112 mcg tablet 112 mcg PO QDAY Thyroid #90 tabs 01/13/22 [Rx Confirmed 04/10/22] rosuvastatin 5 mg tablet 5 mg PO QHS cholesterol #90 tabs 01/13/22 [Rx Confirmed 04/10/22] apple cider vinegar 600 mg capsule 600 mg PO DAILY 02/11/22 [History Confirmed 04/10/22] cinnamon bark 500 mg capsule (Cinnamon) 1,000 mg PO DAILY 02/11/22 [History Confirmed 04/10/22] sertraline 25 mg tablet 25 mg PO DAILY #90 tabs 03/27/22 [Rx Confirmed 04/10/22] gabapentin 300 mg capsule 300 mg PO 0200 Restless Legs 04/10/22 [History Confirmed 04/10/22] gabapentin 300 mg capsule 600 mg PO QHS 04/10/22 [History Confirmed 04/10/22] isosorbide mononitrate 60 mg tablet,extended release 24 hr 60 mg PO QHS 04/10/22 [History Confirmed 04/10/22] isosorbide mononitrate 60 mg tablet,extended release 24 hr 120 mg PO DAILY 04/10/22 [History Confirmed 04/10/22] PFSH Medical History?(Updated 04/10/22 @ 15:41 by Kayleen WELLINGTON, PAMoisésC) Anxiety Anxiety Arteriosclerotic heart disease (ASHD) Arthritis Asthma Atherosclerotic heart disease of [place] coronary artery with other forms of angina pectoris Back pain Back pain BPH (benign prostatic hyperplasia) Cardiology follow-up encounter Chest pain Cochlear implant in place CPAP (continuous positive airway pressure) dependence Crohns disease Essential hypertension Flu vaccine need Gastric reflux Gastroesophageal reflux disease Hay fever Hearing loss History of echocardiogram History of hiatal hernia History of pain when walking History of steroid therapy History of stress test Hyperlipidemia Hypothyroidism Leg cramps Malaise and fatigue Migraine headache Non-smoker Nonrheumatic tricuspid (valve) insufficiency EH (obstructive sleep apnea) Pre-operative cardiovascular exam, new EKG abnormalities c/w ischemia Premature ventricular contractions Prostate disease Rash Restless leg syndrome Screening for intestinal cancer Sensorineural deafness Shoulder pain Thyroid disease Umbilical hernia Umbilical hernia Wears glasses Wears hearing aid Surgical History? eye lesion removal H/O hemorrhoidectomy H/O vasectomy History of coronary artery stent placement (09/07/18) History of left heart catheterization (11/12/18) History of prostate surgery Hx of appendectomy Hx of tonsillectomy Family History? Grandfather CVA (cerebral vascular accident) DepressionBrother COPD (chronic obstructive pulmonary disease)Grandmother DepressionSon ArthritisFather Arthritis CAD (coronary artery disease)Mother Hypertension Hyperlipidemia PacemakerOther Cancer Social History? household members:? spouse housing:? house current occupational status:? retired pets and animals:? No Smoking Status:? Never smoker second hand exposure:? No alcohol intake:? never substance use type:? does not use caffeine:? No what type of physical activity do you participate in:? walking frequency:? 5-6 times per week HPI HPI Surgical H&P: Yes HPI: IMANI MINER, is a 81 M who presents to the office today for an update history and physical for an upcoming umbilical hernia. Patient denies any recent hospitalizations or illness since thew last office visit. Patient denies any recent changes in bowel habits. He denies nausea, vomiting. He notes some discomfort with lifting. He denies any previous complications or side effects with anesthesia. He denies any urinary issues. Patient's previous history per Dr. Cummings: IMANI MINER, is a 81 M who presents to the office today for school consultation regarding an umbilical hernia.? The patient is referred by Dr. Tania Jackson and a written copy my surgical consult recommendations will return to her.? The patient states that for multiple weeks he has had bulging at his umbilicus.? He had been doing a significant mount of lifting and moving at the time of its occurrence.? At that visit he was found to be markedly hypertensive.? He is also been seen by Dr. Brian Miner because of patient's chronic asthma.? Advair twice daily recommended.? Patient also has obstructive sleep apnea.? He is to remain compliant with his CPAP therapy.? On his most recent cardiology evaluation his blood pressure was 123/69.? Among his multiple medications he takes clopidogrel and rosuvastatin and labetalol and losartan and 81 mg aspirin. The patient states he cannot afford the pulmonary medicines that Dr. Brian Miner prescribes.? The patient however states that currently his lungs are quite good.? He is able to mow the lawn.? He did have some severe coughing episode a month or so ago.? He did take a home remedy assisted by his and that did help break up the phlegm.? But in so doing he noticed that his umbilical hernia has progressively enlarged.? He states that Dr. Dean Vazquez did a cystoscopy on him and demonstrated still a patent urachal sinus.? The patient has had no urinary drainage from his umbilicus.? He has had no previous infections in this area? ROS General General: Yes fatigue; No weight change, appetite, colon cancer, breast cancer or weakness HEENT HEENT: No difficulty swallowing, eye injury, eye surgery, swollen glands or hoarseness Endo Endocrine: Yes thyroid disease; No diabetes mellitus, thyroid cancer, Hair loss, heat intolerance or cold intolerance Skin Skin: No rash or changing moles Breast Breast: No left breast lump, right breast lump, nipple discharge, breast pain, abnormal mammogram, abnormal US or breast enlargement Musc Musculoskeletal: Yes back problems; No arthritis, rheumatoid arthritis, gout or joint pain Cardio Cardiovascular: Yes heart disease, high blood pressure and heart stent; No murmur, pacemaker, atrial fibrillation, heart attack, palpitations, shortness of breat with exertion or chest pain Psych Psychiatric: No depression, anxiety or hearing voices Resp Respiratory: No shortness of breath, Yes sleep apnea, Yes cough, Yes COPD, No asthma, No emphysema and No wheezing Gastro Gastrointestinal: No abdominal pain, No nausea or vomiting, No diarrhea, No constipation, No blood in stool, Yes acid reflux, No hemorrhoids, No ulcers, No gallbladder problem and No black,tarry stools Cl Hematologic: Yes blood thinners, No blood disorders, No bleeding, No anemia and No blood clots Neuro Neurologic: No system reviewed and no additional complaints, except as documented, No as per HPI, No abnormal gait, No abnormal hearing, No abnormal movements, No abnormal speech, No behavioral changes, No burning sensations, No confusion, No convulsions, No disequilibrium, No dizziness, No localized weakness, No frequent falls, No headache(s), No lack of coordination, No loss of vision, No memory loss, No numbness, No other visual disturbances, No radicular pain, No restless legs, No sensory deficit, No syncope, No tingling, No tremor(s), No weakness and No other Exam Const General: cooperative, healthy appearing, comfortable and no acute distress [facility] Head: normal to inspection Eyes General: appearance normal, both eyes and all related structures Neck Neck: normal visual inspection Neck mass: No Resp Effort & Inspection: normal respiratory effort Auscultation: clear to auscultation bilaterally Cardio Rate: regular rate Rhythm: regular rhythm GI Inspection: normal to inspection Palpation: soft and hernia umbilical Auscultation: normal bowel sounds Skin General: no rashes or lesions noted Neuro General: no focal motor deficits and CN's II-XI intact bilaterally Extrem General: normal to inspection Psych Appearance: grossly normal Affect: normal affect Assessment and Plan Assessment and Plan (1) Umbilical hernia: ?Status:?Acute ?Plan: Dr. Cummings will plan to perform an umbilical hernia repair with mesh considering a recto rectus placement. Procedure details, risks and benefits have been reviewed. Patient to hold Plavix on Thursday, 04/12. Patient has had the opportunity to ask and have questions answered. Patient verbally understands and agrees with the plan I have re-examined the patient. There are no clinical changes since date of exam. Duane Cummings M.D., F.A.C.S.
--- NOTE | 2022-04-17 12:45 | DCINST_ITS ---
Discharge Instructions Procedure General Surgery Diet Discharge Diet: Light diet - advance as tolerated (if you have questions about your diet instructions, please talk to you doctor.) Activity Discharge Activity: May Not Drive (for 3-5 days or while taking narcotic pain medicine.) May shower in (days): 1 Lifting Restrictions: 10 pounds Dressing / Incision Call your doctor if your incision/area has: Continuous Slow Oozing, Sudden Increased Bleeding, Increased Pain/ Swelling, Increased Redness and Foul Smelling Discharge Call your doctor if you observe: Fever of 101 or Higher Suture Line Care: Avoid Pulling/Pushing and Avoid Pinching/Bending Additional Dressing/Incision Instructions:: Change or remove dressing in 4 days. Leave steri-strips in place for 1 week. Follow Up Care Please Follow Up With: Duane Cummings MD When: Call [phone] to make an appointment to be seen in about 10 days. Test Results: Test results from this visit will be discussed in further detail at your follow- up appointment, if applicable. Discharge Plan Admission Attending Provider: Duane Cummings Primary Care Provider: Tania Jackson Discharge Orders/Prescriptions Prescriptions: No Action Ultra CoQ10 75 mg capsule 30 mg PO DAILY triamcinolone acetonide 55 mcg aerosol,spray 2 spray INTRANASAL DAILY Rx Instructions: administer into each nostril famotidine [Pepcid] 20 mg tablet 20 mg PO BID testosterone cypionate 100 mg/mL oil 100 mg IM Q2W Qty: 10 diclofenac sodium 1 % gel 2 g topical PRN PRN (Reason: Pain) Rx Instructions: apply to single elbow, wrist or hand; for hand includes palm/fingers/back of hand cinnamon bark [Cinnamon] 500 mg capsule 1,000 mg PO DAILY apple cider vinegar 600 mg capsule 600 mg PO DAILY aspirin 81 MG tablet,chewable 81 mg PO QHS Label Comments: preventative for stroke heart WAS TOLD TO STOP FOR 08/20/18 for endo on 08/24/18 Rx Instructions: Takes in Evening magnesium 250 MG tablet 500 mg PO DAILY Label Comments: suppliment multivitamin with folic acid 1 TABLET tablet 1 tab PO DAILY Label Comments: suppliment Rx Instructions: Takes in the evening cyanocobalamin (vitamin B-12) 500 mcg tablet 250 mcg PO DAILY@0800 Label Comments: suppliment calcium carbonate 600 MG tablet 1,500 mg PO QHS bilberry 100 MG capsule 375 mg PO QHS cholecalciferol (vitamin D3) 1,000 UNIT tablet 2,000 unit PO QHS wheat dextrin 1 EACH powder in packet 1 ea PO DAILY isosorbide mononitrate 60 mg Tablet Extended Release 24 Hr 60 mg PO QHS gabapentin 300 mg Capsule 600 mg PO QHS isosorbide mononitrate 60 mg tablet extended release 24 hr 120 mg PO DAILY Rx Instructions: 2 tablets in AM, and 1 tablet in PM gabapentin 300 mg capsule 300 mg PO 0200 Rx Instructions: Take 300 mg morning and afternoon and 600 mg at night. losartan 100 mg tablet 100 mg PO DAILY Qty: 90 3RF hydrochlorothiazide 25 mg tablet 12.5 mg PO DAILY Qty: 90 3RF clopidogrel 75 mg tablet 75 mg PO DAILY Qty: 90 3RF labetalol 200 mg tablet 200 mg PO BID Qty: 180 4RF levothyroxine 112 mcg tablet 112 mcg PO QDAY Qty: 90 1RF rosuvastatin 5 mg tablet 5 mg PO QHS Qty: 90 3RF sertraline 25 mg tablet 25 mg PO DAILY Qty: 90 1RF Referrals / Follow Up: Tania Jackson MD [Primary Care Provider] - Disposition Disposition (needs filled in before D/C Order can be placed): Home, Self Care
[2022-04-17] MEDS: Clindamycin 900 MG/50 ML BAG 75 MG IV (12:58)
[2022-04-17] MEDS: Bupivacaine 0.25% 30 ML Vial (13:15)
--- NOTE | 2022-04-17 13:25 | PCM.OPRPT ---
Report of Operation Date of Procedure: 04/17/22 Pre-Operative Diagnosis: Symptomatic umbilical hernia Post-Operative Diagnosis: Same Surgery/Procedure Performed:: [address] mesh repair umbilical herniorrhaphy Reference [id number], lot number [id number], expiry date 05/18/2023 Description of Surgical Findings:: Timeout informed consent was obtained. 81-year-old gentleman was taken to the operating placed on the table underwent general anesthesia. Ancef 2 g were given intravenously. The abdomen sterilely prepped and draped. A curvilinear incision was made the inferior portion of the umbilicus. The umbilical hernia sac and contents identified and carefully tediously dissected free from the umbilical skin which was admittedly quite thin. Then I did retrorectus dissection completely freeing up the tissue circumferentially. Electrocautery was used for hemostasis. In the retrorectus space no I placed the [address] mesh. Carefully assured that it unfolded correctly. I then transversely closed the defect with simple sutures of 0 Nurolon. With each suture ice also secured a portion of the anterior surface of the mesh to help approximated to the abdominal wall. The tails had already been secured with 0 Nurolon. Good closure was achieved. The subdermal tissues were approximated up to 4-0 Monocryl. Periincisional areas anesthetized with 30 cc of 0.25% Marcaine. Steri-Strips cottonball Telfa OpSite applied. Sponge and instrument and needle counts were reported to the surgeon to be correct. Specimen none. Drains none. Blood loss minimal Duane Cummings M.D., F.A.C.S. Surgeon: Duane Cummings Type of Anesthesia: General and Local Anesthesiologist: Lexie Nash
[2022-04-17 13:40] VITALS: BP 135/68; BP 140/67; PULSE 88; RESP 16; TEMP 36.2; O2SAT 91
[2022-04-17 13:45] VITALS: BP 124/64; BP 140/67; PULSE 88; RESP 16; O2SAT 92
[2022-04-17 14:00] VITALS: BP 133/74; BP 140/67; PULSE 88; RESP 16; O2SAT 92
[2022-04-17 14:14] VITALS: BP 140/67; BP 143/84; PULSE 84; RESP 16; TEMP 36.4; O2SAT 92
[2022-04-17 15:41] VITALS: BP 140/67; BP 156/77; PULSE 68; RESP 18; TEMP 36; O2SAT 97
[2022-04-17] MEDS: HYDROcodone Bitartrate/Apap 5/325 Tablet PO (15:41)
== END 2022-04-17 15:56 | disposition home or self-care (01) ==
LOC: SDC 10:58 → AC 10:58
PROVIDERS: Anesthesiology; PCP Internal Medicine; Referring Provider Surgery; Visit Provider Surgery
PROC: (CPT 49585; principal; 2022-04-17 12:45)
DX: K42.9 Umbilical hernia without obstruction or gangrene (principal); G47.33 Obstructive sleep apnea (adult) (pediatric); I25.10 Atherosclerotic heart disease of native coronary artery without angina pectoris; E78.5 Hyperlipidemia, unspecified; F41.9 Anxiety disorder, unspecified; K21.9 Gastro-esophageal reflux disease without esophagitis; E03.9 Hypothyroidism, unspecified; I10 Essential (primary) hypertension; Z79.82 Long term (current) use of aspirin; Z79.899 Other long term (current) drug therapy; Z95.5 Presence of coronary angioplasty implant and graft
CPT/HCPCS: 49585; 00830; 36415; 80048; 84443; 85027; 93005; J7120; C1781; J2405

== ENCOUNTER → 2022-06-27 | Outpatient (CLI) | payer MEDICARE, OTHER, SELFPAY ==
[2022-03-26 12:12] VITALS: BMI 28.0
== END | disposition home or self-care (01) ==
LOC: LABSPEC 16:11
PROVIDERS: Physician Assistant; PCP Internal Medicine; Referring Provider Nurse Practitioner Family; Visit Provider Nurse Practitioner Family
DX: U07.1 COVID-19 (principal)
CPT/HCPCS: 87635; U0003; U0005

== ENCOUNTER → 2022-07-10 | Outpatient (CLI) | payer MEDICARE, OTHER, SELFPAY ==
[2022-03-26 12:12] VITALS: BMI 28.0
== END | disposition home or self-care (01) ==
LOC: LABSPEC 16:22
PROVIDERS: PCP Internal Medicine; Referring Provider Nurse Practitioner Family; Visit Provider Nurse Practitioner Family
DX: J45.909 Unspecified asthma, uncomplicated (principal)
CPT/HCPCS: 87635; U0003; U0005

== ENCOUNTER 2022-07-16 22:51 | Emergency (ER) | payer MEDICARE, OTHER, SELFPAY ==
[2022-03-26 12:12] VITALS: BMI 28.0
[2022-07-16 22:52] VITALS: BP 190/84; PULSE 67; RESP 18; TEMP 36.8; O2SAT 100; BMI 57.6
--- NOTE | 2022-07-16 23:48 | EDS_ITS ---
HPI History of Present Illness Chief Complaint: Nosebleed Narrative Narrative: Patient presents with nosebleed out of his left naris that happened at 9:00 this evening. He states he is on Plavix, and has had problems with nosebleeds over the past 1 to [address] Morrison who cauterized an area on the left side. Afterwards, he had bleeding out of both nares again and went and saw the cold header operator and they were cauterized on both sides. He has been applying an ointment and using Afrin nasal spray which was working well for him until this evening. He states he had spontaneous nosebleed out of the left side only. He denies any chest pain or shortness of breath. No other bleeding diathesis. [facility] Medical History Anxiety Anxiety Arteriosclerotic heart disease (ASHD) Arthritis Atherosclerotic heart disease of [place] coronary artery with other forms of angina pectoris Back pain Back pain BPH (benign prostatic hyperplasia) Cardiology follow-up encounter Chest pain Cochlear implant in place CPAP (continuous positive airway pressure) dependence Crohns disease Essential hypertension Flu vaccine need Gastric reflux Gastroesophageal reflux disease Hay fever Hearing loss History of echocardiogram History of hiatal hernia History of pain when walking History of steroid therapy History of stress test Hyperlipidemia Hypothyroidism Leg cramps Malaise and fatigue Migraine headache Non-smoker Nonrheumatic tricuspid (valve) insufficiency EH (obstructive sleep apnea) Pre-operative cardiovascular exam, new EKG abnormalities c/w ischemia Premature ventricular contractions Prostate disease Rash Restless leg syndrome Screening for intestinal cancer Sensorineural deafness Shoulder pain Thyroid disease Umbilical hernia Umbilical hernia Wears glasses Wears hearing aid Home Medications aspirin 81 mg chewable tablet 81 mg PO QHS Heart 03/20/14 [History Last Taken 09/25/19] multivitamin with folic acid 400 mcg tablet 1 tab PO DAILY Vitamin 03/20/14 [History Last Taken 04/13/19 22:00] bilberry 100 mg capsule 375 mg PO QHS Eye function 08/13/16 [History Last Taken 04/13/19 22:00] cyanocobalamin (vitamin B-12) 500 mcg tablet 250 mcg PO DAILY@0800 Vitamin 06/08/18 [History Last Taken 04/14/19] coenzyme Q10 75 mg capsule (Ultra CoQ10) 30 mg PO DAILY 06/01/19 [History Last Taken Unknown] famotidine 20 mg tablet (Pepcid) 20 mg PO BID 08/22/19 [History Last Taken 04/17/22 07:00] wheat dextrin 3 gram/3.5 gram oral powder packet 1 ea PO DAILY 09/26/19 [History Last Taken Unknown] diclofenac sodium 1 % topical gel 2 g topical PRN PRN Pain 07/30/21 [History Last Taken Unknown] losartan 100 mg tablet 100 mg PO DAILY #90 tabs 09/12/21 [Rx Last Taken 04/17/22 07:00] testosterone cypionate 100 mg/mL intramuscular oil 100 mg IM Q2W #10 mL 10/29/21 [History Last Taken Unknown] clopidogrel 75 mg tablet 75 mg PO DAILY Heart #90 tabs 01/13/22 [Rx Last Taken 04/12/22] labetalol 200 mg tablet 200 mg PO BID Blood pressure #180 tabs 01/13/22 [Rx Last Taken 04/17/22 07:00] levothyroxine 112 mcg tablet 112 mcg PO QDAY Thyroid #90 tabs 01/13/22 [Rx Last Taken 04/17/22 07:00] rosuvastatin 5 mg tablet 5 mg PO QHS cholesterol #90 tabs 01/13/22 [Rx Last Taken Unknown] apple cider vinegar 600 mg capsule 600 mg PO DAILY 02/11/22 [History Last Taken Unknown] cinnamon bark 500 mg capsule (Cinnamon) 1,000 mg PO DAILY 02/11/22 [History Last Taken Unknown] sertraline 25 mg tablet 25 mg PO DAILY #90 tabs 03/27/22 [Rx Last Taken Unknown] isosorbide mononitrate 60 mg tablet,extended release 24 hr 120 mg PO DAILY 04/10/22 [History Last Taken 04/17/22 07:00] gabapentin 300 mg capsule 300 mg PO TID Restless Legs 04/29/22 [History Last Taken Unknown] nitroglycerin 0.4 mg sublingual tablet 0.4 mg sublingual Q5M PRN chest pain #25 tabs 04/29/22 [Rx Last Taken Unknown] triamcinolone acetonide 55 mcg nasal spray aerosol 2 spray intranasal DAILY PRN NOSE BLEEDS 04/29/22 [History Last Taken Unknown] calcium 600 mg-D3 800 unit-mag11 50 xr-ciwc-wileew-tamar-s.borat tablet 1 tab PO DAILY 07/15/22 [History Last Taken Unknown] Allergy/AdvReac Type Severity Reaction Status Date / Time amlodipine [From Norvasc] AdvReac Intermediate upset Verified 07/16/22 22:54 stomach amoxicillin [From Augmentin] AdvReac Intermediate Nausea/Vom/ Verified 07/16/22 22:54 Diarrhea clavulanic acid AdvReac Intermediate Nausea/Vom/ Verified 07/16/22 22:54 [From Augmentin] Diarrhea lisinopril AdvReac Intermediate cough Verified 07/16/22 22:54 atorvastatin [From Lipitor] AdvReac Pain in Verified 07/16/22 22:54 joints gemfibrozil [From Lopid] AdvReac Pain in Verified 07/16/22 22:54 joints niacin AdvReac Other Verified 07/16/22 22:54 Family History Grandfather CVA (cerebral vascular accident) Depression Brother COPD (chronic obstructive pulmonary disease) Grandmother Depression Son Arthritis Father Arthritis CAD (coronary artery disease) Mother Hypertension Hyperlipidemia Pacemaker Other Cancer Surgical History eye lesion removal H/O hemorrhoidectomy H/O vasectomy History of coronary artery stent placement (09/07/18) History of left heart catheterization (11/12/18) History of prostate surgery Hx of appendectomy Hx of tonsillectomy S/P umbilical hernia repair, follow-up exam Social History household members: spouse housing: house current occupational status: retired pets and animals: No Smoking Status: Never smoker second hand exposure: No alcohol intake: never substance use type: does not use caffeine: No what type of physical activity do you participate in: walking frequency: 5-6 times per week ROS ROS ED ROS Narrative Constitutional: No fever, no chills. HEENT: No sore throat. No neck pain. No loss of vision. No rhinorrhea. Epistaxis out of left naris. Cardiovascular: No chest pain. No palpitations. No pedal edema. Respiratory: No cough, no shortness of breath. Abdominal: No abdominal pain. No nausea. No vomiting. Genitourinary: No dysuria. No hematuria. Musculoskeletal: No myalgias. No arthralgias. Neurologic: No headaches. No dizziness. No lightheadedness. Skin: No rash. No change in color. Psychiatric: No depression. No anxiety. EXAM Physical Exam Narrative Exam Narrative: Afebrile. Vital signs noted. HEENT: Normocephalic. Atraumatic. PERRL, EOMI. Neck soft and supple. No point tenderness or step off. Nasal clamp on nose. No evidence of active bleeding. No posterior pharynx bleeding. Cardiovascular: Regular rate and rhythm. No murmurs, rubs, or gallops appreciated. Respiratory: No tachypnea. Lungs clear to auscultation bilaterally. Gastrointestinal: Abdomen soft, nontender, with normoactive bowel sounds. No rebound or guarding. Neurological: Awake. Alert. Nonfocal, nonlateralizing. Skin: No rash. Normal color. No pallor. Musculoskeletal: No pedal edema. Full range of motion extremities. Const Vital Signs: 07/16/22 22:52 07/17/22 00:32 Temperature 98.3 F Temperature Source Temporal Pulse Rate 67 67 Respiratory Rate 18 Blood Pressure 190/84 H 190/93 H Blood Pressure Mean 119 125 Pulse Ox 100 Oxygen Delivery Method Room Air MDM MDM MDM Narrative Medical decision making narrative: ENT card was put to bedside. I will remove the nasal clamp and have the patient clear his nasal passages through blowing. Tews area was on the nasal septum appeared to have been bleeding and appeared irritated. Lidocaine 4% and Afrin nasal spray cottonball soaked in the solutions was inserted in the left nares and left for 10 to 15 minutes. The areas were cauterized with silver nitrate. There is no sign of active bleeding. He was told to follow-up with otolaryngology tomorrow. Return instructions to the emergency department were reviewed. Disposition is discharged home in stable condition. Of note, patient did have elevated blood pressure of 190 systolic when the nasal clamp was in place. After this was removed, he feels much better and his blood pressure has come down. He will take his medications at home for his hypertension. I feel he can be discharged with follow-up. Discharge Plan Triage Chief Complaint: Nosebleed ED Provider: Jose Raul Berry Dx/Rx/DC Orders Clinical Impression: Epistaxis, Hypertension Instructions: ED Epistaxis (Adult) Prescriptions: No Action Ultra CoQ10 75 mg capsule 30 mg PO DAILY famotidine [Pepcid] 20 mg tablet 20 mg PO BID testosterone cypionate 100 mg/mL oil 100 mg IM Q2W Qty: 10 triamcinolone acetonide 55 mcg aerosol,spray 2 spray INTRANASAL DAILY PRN (Reason: NOSE BLEEDS) Rx Instructions: administer into each nostril diclofenac sodium 1 % gel 2 g topical PRN PRN (Reason: Pain) Rx Instructions: apply to single elbow, wrist or hand; for hand includes palm/fingers/back of hand nitroglycerin 0.4 mg tablet, sublingual 0.4 mg sublingual Q5M PRN (Reason: chest pain) Qty: 25 3RF Rx Instructions: do not exceed 3 doses per episode cinnamon bark [Cinnamon] 500 mg capsule 1,000 mg PO DAILY apple cider vinegar 600 mg capsule 600 mg PO DAILY [id number] 600 mg calcium- 800 unit-50 mg tablet 1 tab PO DAILY aspirin 81 MG tablet,chewable 81 mg PO QHS Label Comments: preventative for stroke heart WAS TOLD TO STOP FOR 08/20/18 for endo on 08/24/18 Rx Instructions: Takes in Evening multivitamin with folic acid 1 TABLET tablet 1 tab PO DAILY Label Comments: suppliment Rx Instructions: Takes in the evening cyanocobalamin (vitamin B-12) 500 mcg tablet 250 mcg PO DAILY@0800 Label Comments: suppliment bilberry 100 MG capsule 375 mg PO QHS wheat dextrin 1 EACH powder in packet 1 ea PO DAILY isosorbide mononitrate 60 mg tablet extended release 24 hr 120 mg PO DAILY Rx Instructions: 2 tablets in AM, and 1 tablet in PM gabapentin 300 mg capsule 300 mg PO TID losartan 100 mg tablet 100 mg PO DAILY Qty: 90 3RF clopidogrel 75 mg tablet 75 mg PO DAILY Qty: 90 3RF labetalol 200 mg tablet 200 mg PO BID Qty: 180 4RF levothyroxine 112 mcg tablet 112 mcg PO QDAY Qty: 90 1RF rosuvastatin 5 mg tablet 5 mg PO QHS Qty: 90 3RF sertraline 25 mg tablet 25 mg PO DAILY Qty: 90 1RF Primary Care Provider: Tania Jackson Referrals: Anthony Ansari MD [Med Staff - Courtesy Staff] - 1 Day Tania Jackson MD [Primary Care Provider] -
[2022-07-17 00:32] VITALS: BP 190/93; PULSE 67
[2022-07-17 01:07] VITALS: BP 168/84
[2022-07-17] MEDS: Oxymetazoline 0.05% 1 SPRAY SPRAY.BTL 2 SPRAY NASAL (01:07)
[2022-07-17] MEDS: Silver Nitrate (BKC) 1 EACH TOPICAL (01:07)
[2022-07-17] MEDS: Lidocaine 4% 50 ML Bottle TOPICAL (01:08)
--- NOTE | 2022-07-17 01:17 | ED.RN ---
pt's bp 168/84 after clip was removed from nose. per dr tapia, apressoline not to be ginve at this time as pt is going home to take his bp meds.
== END 2022-07-17 01:25 | disposition home or self-care (01) ==
LOC: ED 07-17 00:21
PROVIDERS: Emergency Provider Emergency Medicine; PCP Internal Medicine; Visit Provider Emergency Medicine
DX: R04.0 Epistaxis (principal); E78.5 Hyperlipidemia, unspecified; I25.10 Atherosclerotic heart disease of native coronary artery without angina pectoris; I10 Essential (primary) hypertension
CPT/HCPCS: 30901; 99282

== ENCOUNTER → 2022-07-22 | Outpatient (CLI) | payer MEDICARE, OTHER, SELFPAY ==
[2022-03-26 12:12] VITALS: BMI 28.0
[2022-07-22 10:39] LABS: AST(SGOT) 21 U/L (15-37); Alanine Aminotransfer ALT/SGPT 30 U/L (16-61); Albumin, Serum 3.4 g/dL (3.2-5.0); Alkaline Phosphatase 104 U/L (45-117); Bilirubin, Direct 0.29 mg/dL (0.00-0.30); Cholesterol 155 mg/dL (200); Globulin 3.4 g/dL (2.2-4.2); High Density Lipoprotein 39 mg/dL; Protein, Total 6.8 g/dL (6.4-8.2); Thyroid Stim Hormone (TSH) 0.46 uIU/mL (0.358-3.74); Triglycerides 162 mg/dL; Very Low Density Lipoprotein 32 mg/dL (5-40)
[2022-07-28 10:07] LABS: Testosterone, Free 11.82 ng/dL (5.00-21.00)
[2022-08-01 14:25] LABS: Testosterone, % Free 3.66 % (1.50-4.20); Testosterone, Total 323 ng/dL (264-916)
== END | disposition home or self-care (01) ==
LOC: MTLAB 08:47
PROVIDERS: Nurse Practitioner Family; PCP Internal Medicine; Referring Provider Urology; Visit Provider Urology
DX: N40.1 Benign prostatic hyperplasia with lower urinary tract symptoms (principal); E78.00 Pure hypercholesterolemia, unspecified; E03.9 Hypothyroidism, unspecified; Z79.899 Other long term (current) drug therapy
CPT/HCPCS: 36415; 80061; 80076; 84402; 84403; 84443

== ENCOUNTER → 2022-10-16 | Outpatient (CLI) | payer MEDICARE, OTHER, SELFPAY ==
[2022-03-26 12:12] VITALS: BMI 28.0
== END | disposition home or self-care (01) ==
LOC: CVS 10:49
PROVIDERS: PCP Internal Medicine; Visit Provider Nurse Practitioner Family
DX: R03.0 Elevated blood-pressure reading, without diagnosis of hypertension (principal)
CPT/HCPCS: 93788

== ENCOUNTER → 2022-10-27 | Outpatient (CLI) | payer MEDICARE, OTHER, SELFPAY ==
[2022-03-26 12:12] VITALS: BMI 28.0
--- NOTE | 2022-10-27 09:49 | CDU_ITS ---
Reason For Study: vertigo Rt. Velocities/BP Lt. Velocities/BP Prox CCA 57.0/11.6 cm/sec. Prox CCA 74.0/16.8 cm/sec. Mid CCA 73.0/14.5 cm/sec. Mid CCA 69.6/14.6 cm/sec. Dist CCA 67.4/14.5 cm/sec. Dist CCA 63.0/13.5 cm/sec. Prox ICA 56.0/14.5 cm/sec. Prox ICA 49.4/8.8 cm/sec. Mid ICA 60.7/14.5 cm/sec. Mid ICA 50.4/10.7 cm/sec. Dist ICA 68.3/18.2 cm/sec. Dist ICA 54.0/15.2 cm/sec. Rt. ICA/CCA = .9. Lt. ICA/CCA = .8. Prox ECA 70.2/6.9 cm/sec. Prox ECA 53.2/7.8 cm/sec. Rt. Vert. 40.4/10.7 cm/sec. Lt. Vert. 32.4/8.8 cm/sec. Right Extracranial There is intimal thickening but no significant atherosclerotic plaque noted in the right common carotid artery. There is intimal thickening but no significant atherosclerotic plaque noted in the right internal carotid artery. There is intimal thickening but no significant atherosclerotic plaque noted in the right external carotid artery. Antegrade flow is noted in the right vertebral artery. Left Extracranial There is intimal thickening but no significant atherosclerotic plaque noted in the left common carotid artery. There is intimal thickening but no significant atherosclerotic plaque noted in the left internal carotid artery. There is intimal thickening but no significant atherosclerotic plaque noted in the left external carotid artery. Antegrade flow is noted in the left vertebral artery. Procedure Carotid Duplex [id number]. This is a Carotid Duplex examination using B-mode, color flow and specral Doppler. The exam was diagnostic. Exam performed in department. VL/Carotid Duplex Ultrasound Interpretation Summary Minimal plaque at the proximal right internal carotid artery with less than 50% stenosis Less than 50% stenosis right external carotid artery Intimal thickening at the proximal left internal carotid artery with less than 50% stenosis Less than 50% stenosis left external carotid artery Patent and antegrade vertebral arteries bilaterally Ordering Physician: Chalino Lauren Performed By: Brandan Hubbard RVT
== END | disposition home or self-care (01) ==
LOC: CVS 09:46
PROVIDERS: PCP Internal Medicine; Visit Provider Nurse Practitioner Family
DX: G90.01 Carotid sinus syncope (principal); I25.118 Atherosclerotic heart disease of native coronary artery with other forms of angina pectoris; I25.10 Atherosclerotic heart disease of native coronary artery without angina pectoris; Z95.5 Presence of coronary angioplasty implant and graft; I10 Essential (primary) hypertension; R42 Dizziness and giddiness
CPT/HCPCS: 93880

== ENCOUNTER 2022-12-08 12:35 | Emergency (ER) | payer MEDICARE, OTHER, SELFPAY ==
[2022-03-26 12:12] VITALS: BMI 28.0
[2022-12-08 12:35] VITALS: BP 106/82; PULSE 93; RESP 14; TEMP 36.3; O2SAT 96; BMI 26.1
--- NOTE | 2022-12-08 13:50 | ED.VIS.GI ---
HPI <Jose Raul Berry MD - Last Filed: 12/09/22 09:38> HPI - GI History of Present Illness Chief Complaint: Diarrhea Narrative Narrative: 81-year-old male past medical history of coronary artery disease, hypertension, hyperlipidemia, and GERD presents with 3 days of diarrhea. He states his symptoms began on Thursday, 2 days ago. He states that he has had multiple episodes of diarrhea. He started taking [id number] Imodium without relief of his symptoms, so he switched to activated charcoal. He denies any fever or chills but may have had a low-grade fever on Thursday which has resolved. He states he never vomits but he was nauseated on Thursday. He denies any abdominal pain. Past surgical history includes colon resection because he states that he had an appendix that was perforated and attached itself to the colon. He had to have colon resection for that remotely. He presents because of the generalized weakness he is experiencing from his multiple episodes of diarrhea. He denies any blood in his stool but states it is now black because of the activated charcoal that he has taken. [facility] <Jose Raul Berry MD - Last Filed: 12/09/22 09:38> [facility] Medical History Anxiety Anxiety Arteriosclerotic heart disease (ASHD) Arthritis Asthma Atherosclerotic heart disease of [place] coronary artery with other forms of angina pectoris Back pain Back pain Bilateral knee pain BPH (benign prostatic hyperplasia) Cardiology follow-up encounter Carotid sinus syndrome Chest pain Chest pain Cochlear implant in place CPAP (continuous positive airway pressure) dependence Crohns disease Degenerative disc disease Elevated blood pressure reading in office with white coat syndrome, without diagnosis of hypertension Essential hypertension Facet arthritis of lumbar region Flu vaccine need Gastric reflux Gastroesophageal reflux disease Hay fever Hearing loss History of echocardiogram History of hiatal hernia History of pain when walking History of steroid therapy History of stress test Hyperlipidemia Hypothyroidism Laceration of left middle finger Leg cramps Long-term current use of high risk medication other than anticoagulant Lumbar back pain with radiculopathy affecting right lower extremity Malaise and fatigue Migraine headache Non-smoker Nonrheumatic tricuspid (valve) insufficiency EH (obstructive sleep apnea) Piriformis syndrome Pre-operative cardiovascular exam, new EKG abnormalities c/w ischemia Premature ventricular contractions Prostate disease Rash Restless leg syndrome Screening for intestinal cancer Sensorineural deafness Shoulder pain Thyroid disease Umbilical hernia Wears glasses Wears hearing aid Home Medications aspirin 81 mg chewable tablet 81 mg PO QHS Heart 03/20/14 [History Last Taken 09/25/19] multivitamin with folic acid 400 mcg tablet 1 tab PO DAILY Vitamin 03/20/14 [History Last Taken 04/13/19 22:00] cyanocobalamin (vitamin B-12) 500 mcg tablet 250 mcg PO DAILY@0800 Vitamin 06/08/18 [History Last Taken 04/14/19] coenzyme Q10 75 mg capsule (Ultra CoQ10) 30 mg PO DAILY 06/01/19 [History Last Taken Unknown] famotidine 20 mg tablet (Pepcid) 20 mg PO BID 08/22/19 [History Last Taken 04/17/22 07:00] wheat dextrin 3 gram/3.5 gram oral powder packet 1 ea PO DAILY 09/26/19 [History Last Taken Unknown] diclofenac sodium 1 % topical gel 2 g topical PRN PRN Pain 07/30/21 [History Last Taken Unknown] testosterone cypionate 100 mg/mL intramuscular oil 100 mg IM Q2W #10 mL 10/29/21 [History Last Taken Unknown] clopidogrel 75 mg tablet 75 mg PO DAILY Heart #90 tabs 01/13/22 [Rx Last Taken 04/12/22] labetalol 200 mg tablet 200 mg PO BID Blood pressure #180 tabs 01/13/22 [Rx Last Taken 04/17/22 07:00] rosuvastatin 5 mg tablet 5 mg PO QHS cholesterol #90 tabs 01/13/22 [Rx Last Taken Unknown] apple cider vinegar 600 mg capsule 600 mg PO DAILY 02/11/22 [History Last Taken Unknown] cinnamon bark 500 mg capsule (Cinnamon) 1,000 mg PO DAILY 02/11/22 [History Last Taken Unknown] isosorbide mononitrate 60 mg tablet,extended release 24 hr 120 mg PO DAILY 04/10/22 [History Last Taken 04/17/22 07:00] nitroglycerin 0.4 mg sublingual tablet 0.4 mg sublingual Q5M PRN chest pain #25 tabs 04/29/22 [Rx Last Taken Unknown] triamcinolone acetonide 55 mcg nasal spray aerosol 2 spray intranasal DAILY PRN NOSE BLEEDS 04/29/22 [History Last Taken Unknown] calcium 600 mg-D3 800 unit-mag11 50 wy-seht-jrsara-tamar-s.borat tablet 1 tab PO DAILY 07/15/22 [History Last Taken Unknown] levothyroxine 112 mcg tablet 112 mcg PO QDAY Thyroid #90 tabs 07/18/22 [Rx Last Taken Unknown] sertraline 25 mg tablet 25 mg PO DAILY #90 tabs 09/30/22 [Rx Last Taken Unknown] losartan 50 mg tablet 50 mg PO BID #180 tabs 10/10/22 [Rx Last Taken Unknown] bilberry 100 mg capsule 1,000 mg PO QHS Eye function 10/31/22 [History Last Taken Unknown] hydrochlorothiazide 25 mg tablet 25 mg PO DAILY #90 tabs 10/31/22 [Rx Last Taken Unknown] ipratropium bromide 42 mcg (0.06 %) nasal spray 2 spray intranasal DAILY PRN 10/31/22 [History Last Taken Unknown] nifedipine 30 mg tablet,extended release 30 mg PO DAILY #90 tabs 11/21/22 [Rx Last Taken Unknown] Allergy/AdvReac Type Severity Reaction Status Date / Time amlodipine [From Norvasc] AdvReac Intermediate upset Verified 12/08/22 12:37 stomach amoxicillin [From Augmentin] AdvReac Intermediate Nausea/Vom/ Verified 12/08/22 12:37 Diarrhea clavulanic acid AdvReac Intermediate Nausea/Vom/ Verified 12/08/22 12:37 [From Augmentin] Diarrhea lisinopril AdvReac Intermediate cough Verified 12/08/22 12:37 atorvastatin [From Lipitor] AdvReac Pain in Verified 12/08/22 12:37 joints gemfibrozil [From Lopid] AdvReac Pain in Verified 12/08/22 12:37 joints niacin AdvReac Other Verified 12/08/22 12:37 Family History Grandfather CVA (cerebral vascular accident) Depression Brother COPD (chronic obstructive pulmonary disease) Grandmother Depression Son Arthritis Father Arthritis CAD (coronary artery disease) Mother Hypertension Hyperlipidemia Pacemaker Other Cancer Surgical History eye lesion removal H/O hemorrhoidectomy H/O vasectomy History of coronary artery stent placement (09/07/18) History of left heart catheterization (11/12/18) History of prostate surgery Hx of appendectomy Hx of tonsillectomy S/P umbilical hernia repair, follow-up exam Social History household members: spouse housing: house current occupational status: retired pets and animals: No Smoking Status: Never smoker second hand exposure: No alcohol intake: never substance use type: does not use caffeine: No what type of physical activity do you participate in: walking frequency: 5-6 times per week ROS <Jose Raul Berry MD - Last Filed: 12/09/22 09:38> ROS ED ROS Narrative Constitutional: No fever, no chills. HEENT: No sore throat. No neck pain. No loss of vision. No rhinorrhea. Cardiovascular: No chest pain. No palpitations. No pedal edema. Respiratory: No cough, no shortness of breath. Abdominal: No abdominal pain. Resolved nausea. No vomiting. Multiple episodes of watery diarrhea. No melena, but stool is black secondary to taking activated charcoal. Genitourinary: No dysuria. No hematuria. Musculoskeletal: No myalgias. No arthralgias. Neurologic: No headaches. No dizziness. No lightheadedness. Skin: No rash. No change in color. Psychiatric: No depression. No anxiety. EXAM <Jose Raul Berry MD - Last Filed: 12/09/22 09:38> Physical Exam Narrative Exam Narrative: Afebrile. Vital signs noted. HEENT: Normocephalic. Atraumatic. PERRL, EOMI. Neck soft and supple. No point tenderness or step off. Cardiovascular: Regular rate and rhythm. No murmurs, rubs, or gallops appreciated. Respiratory: No tachypnea. Lungs clear to auscultation bilaterally. Gastrointestinal: Abdomen soft, nontender, with normoactive bowel sounds. No rebound or guarding. Neurological: Awake. Alert. Nonfocal, nonlateralizing. Skin: No rash. Normal color. No pallor. Musculoskeletal: No pedal edema. Full range of motion extremities. Const Vital Signs: 12/08/22 12:35 12/08/22 14:10 12/08/22 14:35 Temperature 97.4 F L 98.4 F 97.8 F Temperature Source Temporal Temporal Temporal Pulse Rate 93 78 78 Respiratory Rate 14 16 16 Blood Pressure 106/82 H 128/78 H 123/78 H Blood Pressure Mean 90 94 93 Pulse Ox 96 99 99 Oxygen Delivery Method Room Air Room Air Room Air 12/08/22 16:00 12/08/22 18:22 Temperature 97.8 F 97.6 F L Temperature Source Temporal Pulse Rate 78 76 Respiratory Rate 16 16 Blood Pressure 134/78 H 131/78 H Blood Pressure Mean 96 Pulse Ox 99 100 Oxygen Delivery Method Room Air <Dr. Umberto Han MD - Last Filed: 12/08/22 18:21> Physical Exam Const Vital Signs: 12/08/22 12:35 12/08/22 14:10 12/08/22 14:35 Temperature 97.4 F L 98.4 F 97.8 F Temperature Source Temporal Temporal Temporal Pulse Rate 93 78 78 Respiratory Rate 14 16 16 Blood Pressure 106/82 H 128/78 H 123/78 H Blood Pressure Mean 90 94 93 Pulse Ox 96 99 99 Oxygen Delivery Method Room Air Room Air Room Air 12/08/22 16:00 12/08/22 18:22 Temperature 97.8 F 97.6 F L Temperature Source Temporal Pulse Rate 78 76 Respiratory Rate 16 16 Blood Pressure 134/78 H 131/78 H Blood Pressure Mean 96 Pulse Ox 99 100 Oxygen Delivery Method Room Air MDM <Jose Raul Berry MD - Last Filed: 12/09/22 09:38> [facility] Narrative Medical decision making narrative: Concern is for dehydration given his multiple episodes of diarrhea. I will obtain a CMP to look for hyponatremia or hypokalemia, or elevation of his creatinine and BUN. Regarding the cause of his diarrhea, his stool be sent for ova and parasites to look for Giardia or another infectious process. On the differential diagnosis is ischemic colitis, but he is not having any pain, and certainly no pain out of proportion. I will obtain a lactic acid to help rule this out. He will be bolused normal saline. I do feel CT imaging is warranted. I will obtain a CBC to look for elevation in his white blood cell count which would be consistent with a colitis. Enteric stool pathogen will be obtained and pending also. At this point in time, patient will be signed out to Dr. Umberto Han to check the CT scan and make final disposition on this patient. Dr. Han: I reviewed the patient's blood work. Hemoglobin is a bit high likely due to dehydration. He has acute kidney injury with creatinine of 2.8. Independent interpretation of the patient's CT of the abdomen shows no signs of acute process. No ileus or obstruction. Slight calcification of the aorta but no enlargement. Final reading shows some mild sludge but no other acute process. With the patient's age symptoms positive rotavirus test and acute kidney injury I was expecting to admit this patient. But I went back to see him. He is still having some of the diarrhea. But he is hungry he has been drinking. His states he looks markedly better. He feels a lot better. He really did well with the IV fluids. They would like to try to go home. I think this is reasonable. I explained that if he has a decreased urination, has trouble keeping up with fluids, or any weakness they need to return. They need to have their blood work rechecked. They should follow-up with her doctor in the next 2 to 3 days. If there are any questions they should return. History & Record Review Discussion w/independent historian: Patient and Family Additional record(s) reviewed:: Prior ED visit Lab Data Attestation: I reviewed the patient's lab results. Labs: Laboratory Results - last 24 hr 12/08/22 12/08/22 12/08/22 14:10 14:10 14:10 WBC 4.9 RBC 5.36 Hgb 17.5 H Hct 50.5 MCV 94.2 H MCH 32.6 H MCHC 34.7 RDW Std Deviation 42.5 RDW Coeff of Beni 12.2 Plt Count 214 MPV 9.1 Immature Gran % (Auto) 0.200 Neut % (Auto) 68.0 Lymph % (Auto) 11.3 L [place] % (Auto) 18.9 H Eos % (Auto) 1.2 Baso % (Auto) 0.4 Absolute Neuts (auto) 3.3 Absolute Lymphs (auto) 0.55 L Nucleated RBC % 0 Differential Comment SCANNED Sodium 131 L Potassium 4.8 Chloride 104 Carbon Dioxide 18.0 L Anion Gap 9 BUN 74 H Creatinine 2.81 H Estim Creat Clear Calc 20.28 Est GFR (MDRD) Af Amer 28 L Est GFR (MDRD) Non-Af 23 L BUN/Creatinine Ratio 26.3 H Glucose 105 Lactic Acid 0.8 Calcium 8.3 L Total Bilirubin 1.30 H AST 18 ALT 28 Alkaline Phosphatase 82 Total Protein 7.4 Albumin 3.7 Globulin 3.7 Albumin/Globulin Ratio 1.0 Urine Color Urine Clarity Urine pH Ur Specific [place] Urine Protein Urine Glucose (UA) Urine Ketones Urine Occult Blood Urine Nitrite Urine Bilirubin Urine Urobilinogen Ur Leukocyte Esterase Urine RBC Urine WBC Ur Squamous Epith Cells Urine Bacteria Hyaline Casts Urine Mucus 12/08/22 15:25 WBC RBC Hgb Hct MCV MCH MCHC RDW Std Deviation RDW Coeff of Beni Plt Count MPV Immature Gran % (Auto) Neut % (Auto) Lymph % (Auto) [place] % (Auto) Eos % (Auto) Baso % (Auto) Absolute Neuts (auto) Absolute Lymphs (auto) Nucleated RBC % Differential Comment Sodium Potassium Chloride Carbon Dioxide Anion Gap BUN Creatinine Estim Creat Clear Calc Est GFR (MDRD) Af Amer Est GFR (MDRD) Non-Af BUN/Creatinine Ratio Glucose Lactic Acid Calcium Total Bilirubin AST ALT Alkaline Phosphatase Total Protein Albumin Globulin Albumin/Globulin Ratio Urine Color Yellow Urine Clarity Clear Urine pH 5.0 Ur Specific [place] 1.025 Urine Protein 30 H Urine Glucose (UA) Normal Urine Ketones 5 H Urine Occult Blood Negative Urine Nitrite Negative Urine Bilirubin 1 H Urine Urobilinogen 1 H Ur Leukocyte Esterase 25 H Urine RBC 0 SEEN Urine WBC 0-5 SEEN Ur Squamous Epith Cells 0 SEEN Urine Bacteria 0 SEEN Hyaline Casts 25-50 SEEN Urine Mucus 0 SEEN Radiography Diagnostic Testing: Clinical Impression(s) from Imaging Studies Abdomen/Pelvis CT 12/08/22 15:27 IMPRESSION: Multiple left renal cysts. Questionable sludge seen in the gallbladder lumen. Electronically Signed: Narciso Zamarripa MD at 15:47 EDT , <Dr. Umberto Han MD - Last Filed: 12/08/22 18:21> [facility] Narrative Medical decision making narrative: Concern is for dehydration given his multiple episodes of diarrhea. I will obtain a CMP to look for hyponatremia or hypokalemia, or elevation of his creatinine and BUN. Regarding the cause of his diarrhea, his stool be sent for ova and parasites to look for Giardia or another infectious process. On the differential diagnosis is ischemic colitis, but he is not having any pain, and certainly no pain out of proportion. I will obtain a lactic acid to help rule this out. He will be bolused normal saline. I do feel CT imaging is warranted. I will obtain a CBC to look for elevation in his white blood cell count which would be consistent with a colitis. Enteric stool pathogen will be obtained and pending also. I reviewed the patient's blood work. Hemoglobin is a bit high likely due to dehydration. He has acute kidney injury with creatinine of 2.8. Independent interpretation of the patient's CT of the abdomen shows no signs of acute process. No ileus or obstruction. Slight calcification of the aorta but no enlargement. Final reading shows some mild sludge but no other acute process. With the patient's age symptoms positive rotavirus test and acute kidney injury I was expecting to admit this patient. But I went back to see him. He is still having some of the diarrhea. But he is hungry he has been drinking. His states he looks markedly better. He feels a lot better. He really did well with the IV fluids. They would like to try to go home. I think this is reasonable. I explained that if he has a decreased urination, has trouble keeping up with fluids, or any weakness they need to return. They need to have their blood work rechecked. They should follow-up with her doctor in the next 2 to 3 days. If there are any questions they should return. Lab Data Labs: Laboratory Results - last 24 hr 12/08/22 12/08/22 12/08/22 14:10 14:10 14:10 WBC 4.9 RBC 5.36 Hgb 17.5 H Hct 50.5 MCV 94.2 H MCH 32.6 H MCHC 34.7 RDW Std Deviation 42.5 RDW Coeff of Beni 12.2 Plt Count 214 MPV 9.1 Immature Gran % (Auto) 0.200 Neut % (Auto) 68.0 Lymph % (Auto) 11.3 L [place] % (Auto) 18.9 H Eos % (Auto) 1.2 Baso % (Auto) 0.4 Absolute Neuts (auto) 3.3 Absolute Lymphs (auto) 0.55 L Nucleated RBC % 0 Differential Comment SCANNED Sodium 131 L Potassium 4.8 Chloride 104 Carbon Dioxide 18.0 L Anion Gap 9 BUN 74 H Creatinine 2.81 H Estim Creat Clear Calc 20.28 Est GFR (MDRD) Af Amer 28 L Est GFR (MDRD) Non-Af 23 L BUN/Creatinine Ratio 26.3 H Glucose 105 Lactic Acid 0.8 Calcium 8.3 L Total Bilirubin 1.30 H AST 18 ALT 28 Alkaline Phosphatase 82 Total Protein 7.4 Albumin 3.7 Globulin 3.7 Albumin/Globulin Ratio 1.0 Urine Color Urine Clarity Urine pH Ur Specific [place] Urine Protein Urine Glucose (UA) Urine Ketones Urine Occult Blood Urine Nitrite Urine Bilirubin Urine Urobilinogen Ur Leukocyte Esterase Urine RBC Urine WBC Ur Squamous Epith Cells Urine Bacteria Hyaline Casts Urine Mucus 12/08/22 15:25 WBC RBC Hgb Hct MCV MCH MCHC RDW Std Deviation RDW Coeff of Beni Plt Count MPV Immature Gran % (Auto) Neut % (Auto) Lymph % (Auto) [place] % (Auto) Eos % (Auto) Baso % (Auto) Absolute Neuts (auto) Absolute Lymphs (auto) Nucleated RBC % Differential Comment Sodium Potassium Chloride Carbon Dioxide Anion Gap BUN Creatinine Estim Creat Clear Calc Est GFR (MDRD) Af Amer Est GFR (MDRD) Non-Af BUN/Creatinine Ratio Glucose Lactic Acid Calcium Total Bilirubin AST ALT Alkaline Phosphatase Total Protein Albumin Globulin Albumin/Globulin Ratio Urine Color Yellow Urine Clarity Clear Urine pH 5.0 Ur Specific [place] 1.025 Urine Protein 30 H Urine Glucose (UA) Normal Urine Ketones 5 H Urine Occult Blood Negative Urine Nitrite Negative Urine Bilirubin 1 H Urine Urobilinogen 1 H Ur Leukocyte Esterase 25 H Urine RBC 0 SEEN Urine WBC 0-5 SEEN Ur Squamous Epith Cells 0 SEEN Urine Bacteria 0 SEEN Hyaline Casts 25-50 SEEN Urine Mucus 0 SEEN Radiography Diagnostic Testing: Clinical Impression(s) from Imaging Studies Abdomen/Pelvis CT 12/08/22 15:27 IMPRESSION: Multiple left renal cysts. Questionable sludge seen in the gallbladder lumen. Electronically Signed: Narciso Zamarripa MD at 15:47 EDT , Discharge Plan Triage Chief Complaint: Diarrhea ED Provider: Umberto Han Dx/Rx/DC Orders Clinical Impression: Diarrhea, Dehydration, Acute kidney injury, Rotavirus enteritis Instructions: ED Gastroenteritis, Viral (Adult) Prescriptions: No Action Ultra CoQ10 75 mg capsule 30 mg PO DAILY famotidine [Pepcid] 20 mg tablet 20 mg PO BID testosterone cypionate 100 mg/mL oil 100 mg IM Q2W Qty: 10 triamcinolone acetonide 55 mcg aerosol,spray 2 spray INTRANASAL DAILY PRN (Reason: NOSE BLEEDS) Rx Instructions: administer into each nostril diclofenac sodium 1 % gel 2 g topical PRN PRN (Reason: Pain) Rx Instructions: apply to single elbow, wrist or hand; for hand includes palm/fingers/back of hand nitroglycerin 0.4 mg tablet, sublingual 0.4 mg sublingual Q5M PRN (Reason: chest pain) Qty: 25 3RF Rx Instructions: do not exceed 3 doses per episode cinnamon bark [Cinnamon] 500 mg capsule 1,000 mg PO DAILY apple cider vinegar 600 mg capsule 600 mg PO DAILY [id number] 600 mg calcium- 800 unit-50 mg tablet 1 tab PO DAILY ipratropium bromide 42 mcg (0.06 %) spray,non-aerosol 2 spray intranasal DAILY PRN Label Comments: [place] 2 spray into both nostrils once a day as needed hydrochlorothiazide 25 mg tablet 25 mg PO DAILY Qty: 90 3RF aspirin 81 MG tablet,chewable 81 mg PO QHS Label Comments: preventative for stroke heart WAS TOLD TO STOP FOR 08/20/18 for endo on 08/24/18 Rx Instructions: Takes in Evening multivitamin with folic acid 1 TABLET tablet 1 tab PO DAILY Label Comments: suppliment Rx Instructions: Takes in the evening cyanocobalamin (vitamin B-12) 500 mcg tablet 250 mcg PO DAILY@0800 Label Comments: suppliment bilberry 100 mg capsule 1,000 mg PO QHS wheat dextrin 1 EACH powder in packet 1 ea PO DAILY isosorbide mononitrate 60 mg tablet extended release 24 hr 120 mg PO DAILY Rx Instructions: 2 tablets in AM, and 1 tablet in PM clopidogrel 75 mg tablet 75 mg PO DAILY Qty: 90 3RF labetalol 200 mg tablet 200 mg PO BID Qty: 180 4RF rosuvastatin 5 mg tablet 5 mg PO QHS Qty: 90 3RF levothyroxine 112 mcg tablet 112 mcg PO QDAY Qty: 90 2RF sertraline 25 mg tablet 25 mg PO DAILY Qty: 90 1RF losartan 50 mg tablet 50 mg PO BID Qty: 180 3RF nifedipine 30 mg tablet extended release 30 mg PO DAILY Qty: 90 3RF Primary Care Provider: Tania Jackson Referrals: Tania Jackson MD [Primary Care Provider] - 2 Days (Follow-up in the next 2 to 3 days. It would be appropriate to recheck blood work to make sure you are improving.) Disposition Disposition: Home, Self Care Discharge Date/Time: 12/08/22 18:33
[2022-12-08] MEDS: 0.9% Normal Saline 1,000 ML 1000 ML IV (14:09)
[2022-12-08 14:10] VITALS: BP 128/78; PULSE 78; RESP 16; TEMP 36.9; O2SAT 99
[2022-12-08 14:17] LABS: Absolute Lymphocyte Count 0.55 X10^3/uL (0.83-4.51); Absolute Neutrophil Count 3.3 X10^3/uL (2.0-7.7); Basophil# 0.02 X10^3/uL; Basophil% 0.4 % (0-1); Eosinophil# 0.06 X10^3/uL; Eosinophils% 1.2 % (0-5); Hematocrit 50.5 % (40-54); Hemoglobin 17.5 g/dL (13.0-16.5); Lymphocyte # 0.55 X10^3/ul (0.83-4.51); Lymphocyte % 11.3 % (19-41); Mean Corp Hgb Conc 34.7 g/dL (32-36); Mean Corpuscular Hgb 32.6 pg (27.0-32.0); Mean Corpuscular Volume 94.2 fL (80-94); Mean Platelet Vol. 9.1 fl (6.2-12.0); Monocyte# 0.92 X10^3/uL; Monocyte% 18.9 % (0-10); NRBC Flagged by Analyzer 0 % (0-5); POSITIVE DIFFERENTIAL YES; Platelet Count 214 K/mm3 (150-450); RBC Distribution Width CV 12.2 % (11.6-14.6); RBC Distribution Width SD 42.5 fl (35.1-43.9); Red Blood Count 5.36 M/mm3 (4.6-6.2); White Blood Count 4.9 K/mm3 (4.4-11.0)
[2022-12-08 14:19] LABS: Differential Indicated SCAN CRITERIA MET
[2022-12-08 14:34] LABS: AST(SGOT) 18 U/L (15-37); Alanine Aminotransfer ALT/SGPT 28 U/L (16-61); Albumin, Serum 3.7 g/dL (3.2-5.0); Alkaline Phosphatase 82 U/L (45-117); Anion Gap 9 (5-15); BUN 74 mg/dL (7-18); BUN/Creat Ratio 26.3 RATIO (10-20); Calcium,Total 8.3 mg/dL (8.5-10.1); Chloride 104 mmol/L (98-107); Creatinine, Serum 2.81 mg/dL (0.70-1.30); EST Glomerular Filtration Rate 23 mL/min (>60); Est Glom Filt Rate - Afr Amer 28 mL/min (>60); Estimated Creatinine Clearance 20.28 ml/min; Globulin 3.7 g/dL (2.2-4.2); Glucose 105 mg/dL (74-106); Potassium 4.8 mmol/L (3.5-5.1); Protein, Total 7.4 g/dL (6.4-8.2); Sodium Level 131 mmol/L (136-145)
[2022-12-08 14:35] VITALS: BP 123/78; PULSE 78; RESP 16; TEMP 36.6; O2SAT 99
[2022-12-08 14:45] LABS: Differential Comment SCANNED
[2022-12-08 14:51] LABS: Lactic Acid 0.8 mmol/L (0.4-1.9)
--- NOTE | 2022-12-08 15:27 | CT_ITS ---
STUDY: CT ABDOMEN AND PELVIS WITHOUT CONTRAST REASON FOR EXAM: Male, 81 years old. Diarrhea RADIATION DOSAGE (If Supplied By Facility): CTDIvol = ( 9.01 ) mGy, DLP = ( 484.21 ) mGycm TECHNIQUE: Transaxial images were obtained from the dome of the diaphragm to the symphysis pubis without oral contrast, and without intravenous contrast. Sagittal and coronal images were reconstructed. Individualized dose optimization techniques were used for this CT. COMPARISON: Comparison is made with prior study dated June 21, 2015. FINDINGS: Mild increased markings at the lung bases suggests a mild degree of scarring. Coronary artery calcification. Normal liver. Questionable sludge within the gallbladder lumen. Normal spleen. Normal pancreas. Normal bilateral adrenal glands. Small right renal cysts. Multiple cysts are seen in the left kidney. The largest cyst measures 6 cm x 5.1 cm. Normal visualized stomach. Normal small intestine. There are scattered colonic diverticula consistent with diverticulosis. The appendix is visualized and appears normal. There is scattered atherosclerotic calcification of the abdominal aorta, without a demonstrated aneurysm. Normal inferior vena cava. Normal retroperitoneum. Normal urinary bladder. Normal abdominal wall. Mild degree of disc space narrowing at the L5-S1 level. CT/Abdomen/Pelvis without Cont IMPRESSION: Multiple left renal cysts. Questionable sludge seen in the gallbladder lumen. Electronically Signed: Narciso Zamarripa MD at 15:47 EDT ,
[2022-12-08 15:31] LABS: Bacteria 0 SEEN /hpf (None Seen); Mucous, Urine 0 SEEN /hpf (<or=2+); Red Blood Cells-Urine 0 SEEN /hpf (0-5); Squamous Epithelial Cells - UA 0 SEEN /hpf (0-5)
[2022-12-08 16:00] VITALS: BP 134/78; PULSE 78; RESP 16; TEMP 36.6; O2SAT 99
[2022-12-08 16:09] LABS: Color, Urine Yellow (Yellow); Glucose, Dipstick Normal (Normal); Ketone-Dipstick 5 mg/dl (Negative); Leukocyte Esterase-Dipstick 25 /ul (Negative); Nitrite-Dipstick Negative (Negative); Occult Blood-Urine Negative /ul (Negative); Protein-Dipstick 30 mg/dl (Negative); Specific Gravity, Urine 1.025 (1.002-1.030); Urine Clarity Clear (Clear); Urine Urobilinogen 1 mg/dl (Normal)
[2022-12-08 16:31] LABS: Urine Bilirubin Dipstick 1 mg/dL (Negative)
[2022-12-08 16:47] LABS: White Blood Cells 0-5 SEEN /hpf (0-5)
[2022-12-08 16:48] LABS: Hyaline Cast 25-50 SEEN /lpf (0-5)
[2022-12-08 18:22] VITALS: BP 131/78; PULSE 76; RESP 16; TEMP 36.4; O2SAT 100
--- NOTE | 2022-12-17 11:50 | ED.RN ---
THIS RN INFORMED BY LAB OF STOOL RESULTS FINALIZED. PER DR. BYRNE REVIEW,THIS RN CONTACTED PT TO INQUIRE OF PT WELL BEING. PT REPORTS RESOLVE OF DIARRHEA. NO FURTHER TX NECESSARY. PT ENCOURAGED TO FOLLOW UP WITH PCP.
== END 2022-12-08 18:33 | disposition home or self-care (01) ==
PROVIDERS: Emergency Medicine; Emergency Provider Emergency Medicine; PCP Internal Medicine; Visit Provider Emergency Medicine
DX: R19.7 Diarrhea, unspecified (principal); N17.9 Acute kidney failure, unspecified; A08.0 Rotaviral enteritis; E86.0 Dehydration; I10 Essential (primary) hypertension; I25.10 Atherosclerotic heart disease of native coronary artery without angina pectoris; E78.5 Hyperlipidemia, unspecified; Z99.89 Dependence on other enabling machines and devices; Z79.899 Other long term (current) drug therapy; Z79.82 Long term (current) use of aspirin; K21.9 Gastro-esophageal reflux disease without esophagitis; F41.9 Anxiety disorder, unspecified; M19.90 Unspecified osteoarthritis, unspecified site
CPT/HCPCS: 99283; 74176; 80053; 81001; 83605; 85025; 87177; 87209; 87506; J7030

== ENCOUNTER 2022-12-10 00:22 | Inpatient (IN) | payer MEDICARE, OTHER, SELFPAY ==
[2022-03-26 12:12] VITALS: BMI 28.0
[2022-12-10] VITALS (10 sets, daily range): BP systolic 89–144; BP diastolic 54–74; PULSE 57–72; RESP 15–21; TEMP 35.8–36.9; O2SAT 94–100; BMI 25.5; BMI 25.6
--- NOTE | 2022-12-10 00:48 | ED.VIS.GI ---
HPI HPI - GI History of Present Illness Chief Complaint: Weakness Informant: patient Narrative Narrative: Patient has had diarrhea for about 4 days now, it has been profuse. He was seen here and diagnosed with rotavirus after submitting a specimen. He opted to go home despite some CHERELLE, he has been drinking fluids but still having lots of diarrhea feeling dehydrated, very lightheaded with standing, and hypotensive in the 80s tonight. He feels near syncopal every time he tries to stand up and go anywhere, he is very malaised and brought him back to see if they can get him admitted. He has been urinating. He states he just had a bowel movement before coming here that was solid and he thinks maybe the diarrhea has stopped. He denies any nausea, vomiting, fevers, or abdominal pain. [facility] Medical History Anxiety Anxiety Arteriosclerotic heart disease (ASHD) Arthritis Asthma Atherosclerotic heart disease of [place] coronary artery with other forms of angina pectoris Back pain Back pain Bilateral knee pain BPH (benign prostatic hyperplasia) Cardiology follow-up encounter Carotid sinus syndrome Chest pain Chest pain Cochlear implant in place CPAP (continuous positive airway pressure) dependence Crohns disease Degenerative disc disease Elevated blood pressure reading in office with white coat syndrome, without diagnosis of hypertension Essential hypertension Facet arthritis of lumbar region Flu vaccine need Gastric reflux Gastroesophageal reflux disease Hay fever Hearing loss History of echocardiogram History of hiatal hernia History of pain when walking History of steroid therapy History of stress test Hyperlipidemia Hypothyroidism Laceration of left middle finger Leg cramps Long-term current use of high risk medication other than anticoagulant Lumbar back pain with radiculopathy affecting right lower extremity Malaise and fatigue Migraine headache Non-smoker Nonrheumatic tricuspid (valve) insufficiency EH (obstructive sleep apnea) Piriformis syndrome Pre-operative cardiovascular exam, new EKG abnormalities c/w ischemia Premature ventricular contractions Prostate disease Rash Restless leg syndrome Screening for intestinal cancer Sensorineural deafness Shoulder pain Thyroid disease Umbilical hernia Wears glasses Wears hearing aid Home Medications aspirin 81 mg chewable tablet 81 mg PO QHS Heart 03/20/14 [History Last Taken 09/25/19] multivitamin with folic acid 400 mcg tablet 1 tab PO DAILY Vitamin 03/20/14 [History Last Taken 04/13/19 22:00] cyanocobalamin (vitamin B-12) 500 mcg tablet 250 mcg PO DAILY@0800 Vitamin 06/08/18 [History Last Taken 04/14/19] coenzyme Q10 75 mg capsule (Ultra CoQ10) 30 mg PO DAILY 06/01/19 [History Last Taken Unknown] famotidine 20 mg tablet (Pepcid) 20 mg PO BID 08/22/19 [History Last Taken 04/17/22 07:00] wheat dextrin 3 gram/3.5 gram oral powder packet 1 ea PO DAILY 09/26/19 [History Last Taken Unknown] diclofenac sodium 1 % topical gel 2 g topical PRN PRN Pain 07/30/21 [History Last Taken Unknown] testosterone cypionate 100 mg/mL intramuscular oil 100 mg IM Q2W #10 mL 10/29/21 [History Last Taken Unknown] clopidogrel 75 mg tablet 75 mg PO DAILY Heart #90 tabs 01/13/22 [Rx Last Taken 04/12/22] labetalol 200 mg tablet 200 mg PO BID Blood pressure #180 tabs 01/13/22 [Rx Last Taken 04/17/22 07:00] rosuvastatin 5 mg tablet 5 mg PO QHS cholesterol #90 tabs 01/13/22 [Rx Last Taken Unknown] apple cider vinegar 600 mg capsule 600 mg PO DAILY 02/11/22 [History Last Taken Unknown] cinnamon bark 500 mg capsule (Cinnamon) 1,000 mg PO DAILY 02/11/22 [History Last Taken Unknown] isosorbide mononitrate 60 mg tablet,extended release 24 hr 120 mg PO DAILY 04/10/22 [History Last Taken 04/17/22 07:00] nitroglycerin 0.4 mg sublingual tablet 0.4 mg sublingual Q5M PRN chest pain #25 tabs 04/29/22 [Rx Last Taken Unknown] triamcinolone acetonide 55 mcg nasal spray aerosol 2 spray intranasal DAILY PRN NOSE BLEEDS 04/29/22 [History Last Taken Unknown] calcium 600 mg-D3 800 unit-mag11 51 yo-shcz-lgiagb-tamar-s.borat tablet 1 tab PO DAILY 07/15/22 [History Last Taken Unknown] levothyroxine 112 mcg tablet 112 mcg PO QDAY Thyroid #90 tabs 07/18/22 [Rx Last Taken Unknown] sertraline 25 mg tablet 25 mg PO DAILY #90 tabs 09/30/22 [Rx Last Taken Unknown] losartan 50 mg tablet 50 mg PO BID #180 tabs 10/10/22 [Rx Last Taken Unknown] bilberry 100 mg capsule 1,000 mg PO QHS Eye function 10/31/22 [History Last Taken Unknown] hydrochlorothiazide 25 mg tablet 25 mg PO DAILY #90 tabs 10/31/22 [Rx Last Taken Unknown] ipratropium bromide 42 mcg (0.06 %) nasal spray 2 spray intranasal DAILY PRN 10/31/22 [History Last Taken Unknown] nifedipine 30 mg tablet,extended release 30 mg PO DAILY #90 tabs 11/21/22 [Rx Last Taken Unknown] Allergy/AdvReac Type Severity Reaction Status Date / Time amlodipine [From Norvasc] AdvReac Intermediate upset Verified 12/08/22 12:37 stomach amoxicillin [From Augmentin] AdvReac Intermediate Nausea/Vom/ Verified 12/08/22 12:37 Diarrhea clavulanic acid AdvReac Intermediate Nausea/Vom/ Verified 12/08/22 12:37 [From Augmentin] Diarrhea lisinopril AdvReac Intermediate cough Verified 12/08/22 12:37 atorvastatin [From Lipitor] AdvReac Pain in Verified 12/08/22 12:37 joints gemfibrozil [From Lopid] AdvReac Pain in Verified 12/08/22 12:37 joints niacin AdvReac Other Verified 12/08/22 12:37 Family History Grandfather CVA (cerebral vascular accident) Depression Brother COPD (chronic obstructive pulmonary disease) Grandmother Depression Son Arthritis Father Arthritis CAD (coronary artery disease) Mother Hypertension Hyperlipidemia Pacemaker Other Cancer Surgical History eye lesion removal H/O hemorrhoidectomy H/O vasectomy History of coronary artery stent placement (09/07/18) History of left heart catheterization (11/12/18) History of prostate surgery Hx of appendectomy Hx of tonsillectomy S/P umbilical hernia repair, follow-up exam Social History household members: spouse housing: house current occupational status: retired pets and animals: No Smoking Status: Never smoker second hand exposure: No alcohol intake: never substance use type: does not use caffeine: No what type of physical activity do you participate in: walking frequency: 5-6 times per week ROS ROS ED Constitutional Constitutional ED: Reports malaise and weakness; Denies chills or fever(s) Eyes Eyes: Denies change in vision or diplopia ENT ENT ED: Denies rhinorrhea or sore throat Cardiovascular Cardiovascular: Reports lightheadedness and orthostatic symptoms; Denies chest pain, palpitations or syncope Respiratory/Chest Respiratory/Chest: Denies cough or dyspnea Gastrointestinal Gastrointestinal: Reports diarrhea; Denies abdominal pain, hematochezia, melena, nausea or vomiting Genitourinary Genitourinary ED: Denies dysuria or hematuria Musculoskeletal Musculoskeletal: Denies back pain or neck pain Integumentary Denies abscess or rash Neurologic Neurologic: Denies headache(s), paresthesias or weakness Psychiatric Psychiatric: Denies anxiety or suicidal thoughts EXAM Physical Exam Const Vital Signs: 12/10/22 00:23 12/10/22 00:26 Temperature 96.5 F L Temperature Source Temporal Pulse Rate 58 L Respiratory Rate 16 Respiratory Effort Normal Respiratory Pattern Normal Blood Pressure 89/54 L Blood Pressure Mean 65 Pulse Ox 94 Oxygen Delivery Method Room Air Positive well nourished and well developed General Appearance ED: well developed and NAD HEENT Reports moist mucous membranes normocephalic and atraumatic Eyes PERRL and EOMs intact bilaterally Neck full ROM and supple Resp normal respiratory effort and clear to auscultation bilaterally Cardio regular rate, regular rhythm and no murmurs Rate: Negative for tachycardic GI non-tender and non-distended Auscultation: normoactive bowel sounds Palpation: soft Back/Spine no CVA tenderness General Back: other FROM Extremity normal to inspection General Extremety ED: Negative for edema, pulses abnormal or tenderness General Extremity: Negative for edema or pulses abnormal Neuro oriented x3, CN's II-XII intact bilaterally and no sensory deficits noted Sensorium / Orientation: awake and alert Motor Exam: strength 5/5 throughout Skin no rashes or lesions noted and no wounds MDM MDM MDM Narrative Medical decision making narrative: Kidney function not quite as bad as it was yesterday, still prerenal and dehydrated with a low bicarb. Not in need of a bicarb drip, but given IV fluids, watching his pressure, clinically he looks well but will admit due to acute functional decline. History & Record Review Additional record(s) reviewed:: Prior ED visit Lab Data Attestation: I reviewed the patient's lab results. Labs: Laboratory Results - last 24 hr 12/10/22 12/10/22 01:00 01:00 WBC 5.0 RBC 5.12 Hgb 16.6 H Hct 48.2 MCV 94.1 H MCH 32.4 H MCHC 34.4 RDW Std Deviation 42.3 RDW Coeff of Beni 12.0 Plt Count 242 MPV 9.2 Immature Gran % (Auto) 0.200 Neut % (Auto) 70.6 H Lymph % (Auto) 12.1 L [place] % (Auto) 12.3 H Eos % (Auto) 4.6 Baso % (Auto) 0.2 Absolute Neuts (auto) 3.6 Absolute Lymphs (auto) 0.61 L Nucleated RBC % 0 Sodium 134 L Potassium 4.0 Chloride 107 Carbon Dioxide 19.0 L Anion Gap 8 BUN 64 H Creatinine 1.63 H Estim Creat Clear Calc 34.97 Est GFR (MDRD) Af Amer 53 L Est GFR (MDRD) Non-Af 43 L BUN/Creatinine Ratio 39.3 H Glucose 135 H Calcium 8.2 L Management Discussion w/another healthcare provider: Hospitalist Discharge Plan Dx/Rx/DC Orders Clinical Impression: Dehydration, Acute kidney injury, Rotavirus enteritis Disposition Disposition: Acute Care [facility]
[2022-12-10 01:10] LABS: Absolute Lymphocyte Count 0.61 X10^3/uL (0.83-4.51); Absolute Neutrophil Count 3.6 X10^3/uL (2.0-7.7); Basophil# 0.01 X10^3/uL; Basophil% 0.2 % (0-1); Eosinophil# 0.23 X10^3/uL; Eosinophils% 4.6 % (0-5); Hematocrit 48.2 % (40-54); Hemoglobin 16.6 g/dL (13.0-16.5); Lymphocyte # 0.61 X10^3/ul (0.83-4.51); Lymphocyte % 12.1 % (19-41); Mean Corp Hgb Conc 34.4 g/dL (32-36); Mean Corpuscular Hgb 32.4 pg (27.0-32.0); Mean Corpuscular Volume 94.1 fL (80-94); Mean Platelet Vol. 9.2 fl (6.2-12.0); Monocyte# 0.62 X10^3/uL; Monocyte% 12.3 % (0-10); NRBC Flagged by Analyzer 0 % (0-5); Neutrophil # 3.56 X10^3/uL (2.7-7.7); Neutrophil % 70.6 % (47-70); Platelet Count 242 K/mm3 (150-450); RBC Distribution Width SD 42.3 fl (35.1-43.9); Red Blood Count 5.12 M/mm3 (4.6-6.2)
[2022-12-10 01:25] LABS: Anion Gap 8 (5-15); BUN 64 mg/dL (7-18); BUN/Creat Ratio 39.3 RATIO (10-20); Calcium,Total 8.2 mg/dL (8.5-10.1); Chloride 107 mmol/L (98-107); Creatinine, Serum 1.63 mg/dL (0.70-1.30); EST Glomerular Filtration Rate 43 mL/min (>60); Est Glom Filt Rate - Afr Amer 53 mL/min (>60); Estimated Creatinine Clearance 34.97 ml/min; Glucose 135 mg/dL (74-106); Sodium Level 134 mmol/L (136-145)
[2022-12-10] MEDS: 0.9% Normal Saline 1,000 ML 250 ML IV (02:23)
[2022-12-10 02:34] LABS: Magnesium 2.3 mg/dL (1.6-2.6); Phosphorus 4.1 mg/dL (2.5-4.9)
--- NOTE | 2022-12-10 03:10 | HP.PCM_ITS ---
HPI - General General Date of Admission: 12/10/22 Date of Service: 12/10/22 Chief Complaint: Weakness, debility, recent rotaviral diagnosis. HPI Narrative The patient is an 81 y/o M w/ PMHx: Anxiety and Depression, CAD s/p PCI, Asthma, BPH, EH on CPAP, Crohns disease, GERD, HTN, HLD, Hypothyroidism, Hx migraine headaches, recent ED evaluation on 12/08/22 with 3-day history at that time of persistent diarrhea, fatigue and malaise with low-grade temperatures with nausea without emesis with decreased oral intake complicated by history of partial colon resection secondary to complicated perforated appendicitis with work-up at that time with CT abdomen pelvis with no acute intra-abdominal findings, CBC with no marked WBC elevation or significant left shift with lymphopenia noted, CMP with sodium 131, complex and 18, BUN/creatinine 74/2.81, total bilirubin 1.30 with urinalysis with evidence of dehydration but no obvious UTI with ente rosemary stool and ova and parasite obtained at that time with patient preference for return to home following hydration who now represents to the [facility] ED on 12/10/22 secondary to worsening status with increasing weakness, fatigue and malaise as well as low blood pressures at home with systolics in the 80s prompting return. He did note that his diarrhea has significantly improved. Patient denies any ab dominal cramping or pain with his diarrheal illness. also reports that he had been very diaphoretic especially with his systolic in the 80s when at home. Work-up in the ED included T96.5, heart rate 58, BP 89/54, respiratory rate 16, 94% on room air, CBC with WC 5, hemoglobin 16.6, platelet 242 with lymphopenia, BMP with sodium 134, carbon dioxide 19, BUN/creatinine 64/1.63, glucose 135. In the ED administered normal saline maintenance IV fluids. [facility] Medical History (Updated 12/10/22 @ 02:[address] Sammie El MD) Anxiety Arthritis Asthma Atherosclerotic heart disease of [place] coronary artery with other forms of angina pectoris Back pain Bilateral knee pain BPH (benign prostatic hyperplasia) CAD (coronary artery disease) Cochlear implant in place CPAP (continuous positive airway pressure) dependence Crohns disease Degenerative disc disease Essential hypertension Gastroesophageal reflux disease History of hiatal hernia Hyperlipidemia Hypothyroidism Long-term current use of high risk medication other than anticoagulant Lumbar back pain with radiculopathy affecting right lower extremity Migraine headache Nonrheumatic tricuspid (valve) insufficiency EH (obstructive sleep apnea) Piriformis syndrome Prostate disease Restless leg syndrome Sensorineural deafness Thyroid disease Umbilical hernia Wears glasses Wears hearing aid Home Medications aspirin 81 mg chewable tablet 81 mg PO QHS Heart 03/20/14 [History Last Taken 09/25/19] multivitamin with folic acid 400 mcg tablet 1 tab PO DAILY Vitamin 03/20/14 [History Last Taken 04/13/19 22:00] cyanocobalamin (vitamin B-12) 500 mcg tablet 250 mcg PO DAILY@0800 Vitamin 06/08/18 [History Last Taken 04/14/19] coenzyme Q10 75 mg capsule (Ultra CoQ10) 30 mg PO DAILY pain 06/01/19 [History Last Taken Unknown] famotidine 20 mg tablet (Pepcid) 20 mg PO BID congestion 08/22/19 [History Last Taken 04/17/22 07:00] wheat dextrin 3 gram/3.5 gram oral powder packet 1 ea PO DAILY supplement 09/26/19 [History Last Taken Unknown] diclofenac sodium 1 % topical gel 2 g topical PRN PRN Pain 07/30/21 [History Last Taken Unknown] testosterone cypionate 100 mg/mL intramuscular oil 100 mg IM Q2W hormone #10 mL 10/29/21 [History Last Taken Unknown] clopidogrel 75 mg tablet 75 mg PO DAILY Heart #90 tabs 01/13/22 [Rx Last Taken 0 04/12/22] labetalol 200 mg tablet 200 mg PO BID Blood pressure #180 tabs 01/13/22 [Rx Last Taken 04/17/22 07:00] rosuvastatin 5 mg tablet 5 mg PO QHS cholesterol #90 tabs 01/13/22 [Rx Last Taken Unknown] apple cider vinegar 600 mg capsule 600 mg PO DAILY paiin 02/11/22 [History Last Taken Unknown] cinnamon bark 500 mg capsule (Cinnamon) 1,000 mg PO DAILY pain 02/11/22 [History Last Taken Unknown] isosorbide mononitrate 60 mg tablet,extended release 24 hr 120 mg PO BID blood pressure 04/10/22 [History Last Taken 04/17/22 07:00] nitroglycerin 0.4 mg sublingual tablet 0.4 mg sublingual Q5M PRN chest pain #25 tabs 08/09/22 [Rx Last Taken Unknown] triamcinolone acetonide 55 mcg nasal spray aerosol 2 spray intranasal DAILY PRN NOSE BLEEDS 04/29/22 [History Last Taken Unknown] calcium 600 mg-D3 800 unit-mag11 50 tr-batg-puejbn-tamar-s.borat tablet 1 tab PO DAILY pain 07/15/22 [History Last Taken Unknown] levothyroxine 112 mcg tablet 112 mcg PO QDAY Thyroid #90 tabs 07/18/22 [Rx Last Taken Unknown] sertraline 25 mg tablet 25 mg PO DAILY #90 tabs 09/30/22 [Rx Last Taken Unknown] bilberry 100 mg capsule 1,000 mg PO QHS Eye function 10/31/22 [History Last Taken Unknown] ipratropium bromide 42 mcg (0.06 %) nasal spray 2 spray intranasal DAILY PRN Congestion 10/31/22 [History Last Taken Unknown] gabapentin 300 mg tablet 300 mg PO DAILY pain 12/10/22 [History Last Taken Unknown] gabapentin 600 mg tablet 600 mg PO QHS neuropathy 12/10/22 [History Last Taken Unknown] hydrochlorothiazide 25 mg tablet 25 mg PO DAILY blood pressure 12/10/22 [History Last Taken Unknown] losartan 50 mg tablet 50 mg PO BID blood pressure 12/10/22 [History Last Taken Unknown] nifedipine 30 mg tablet,extended release 30 mg PO DAILY blood pressure 12/10/22 [History Last Taken Unknown] Allergy/AdvReac Type Severity Reaction Status Date / Time amlodipine [From Norvasc] AdvReac Intermediate upset Verified 12/08/22 12:37 stomach amoxicillin [From Augmentin] AdvReac Intermediate Nausea/Vom/ Verified 12/08/22 12:37 Diarrhea clavulanic acid AdvReac Intermediate Nausea/Vom/ Verified 12/08/22 12:37 [From Augmentin] Diarrhea lisinopril AdvReac Intermediate cough Verified 12/08/22 12:37 atorvastatin [From Lipitor] AdvReac Pain in Verified 12/08/22 12:37 joints gemfibrozil [From Lopid] AdvReac Pain in Verified 12/08/22 12:37 joints niacin AdvReac Other Verified 12/08/22 12:37 Family History Grandfather CVA (cerebral vascular accident) Depression Brother COPD (chronic obstructive pulmonary disease) Grandmother Depression Son Arthritis Father Arthritis CAD (coronary artery disease) Mother Hypertension Hyperlipidemia Pacemaker Other Cancer Surgical History eye lesion removal H/O hemorrhoidectomy H/O vasectomy History of coronary artery stent placement (09/07/18) History of left heart catheterization (11/12/18) History of prostate surgery Hx of appendectomy Hx of tonsillectomy S/P umbilical hernia repair, follow-up exam Social History household members: spouse housing: house current occupational status: retired pets and animals: No Smoking Status: Never smoker second hand exposure: No alcohol intake: never substance use type: does not use caffeine: No what type of physical activity do you participate in: walking frequency: 5-6 times per week ROS ROS Narrative Admission Review of Systems: CONSTITUTIONAL: No weight loss, chills, + low grade temperature, weakness or fatigue. HEENT: Eyes: No visual loss, blurred vision, double vision or yellow sclerae. Ears, Nose, Throat: No hearing loss, sneezing, congestion, runny nose or sore throat. SKIN: No rash or itching, lesions, wounds. CARDIOVASCULAR: No chest pain, chest pressure or chest discomfort, palpitations, edema, orthopnea, syncopal events. RESPIRATORY: No shortness of breath, cough or sputum, wheezing, hemoptysis. GASTROINTESTINAL: + anorexia, nausea without vomiting, diarrhea, No abdominal pain, melena, BRBPR. GENITOURINARY: No dysuria, frequency, urgency or retention. NEUROLOGICAL: No headache, dizziness, syncope, paralysis, ataxia, numbness or tingling in the extremities, focal weakness, change in bowel or bladder control, seizure. MUSCULOSKELETAL: + muscle, back pain, joint pain or stiffness. HEMATOLOGIC: + Easy bleeding or bruising. LYMPHATICS: No enlarged nodes. No history of splenectomy. PSYCHIATRIC: + history of depression or anxiety. ENDOCRINOLOGIC: No reports of sweating, cold or heat intolerance. No polyuria or polydipsia. ALLERGIES: + history of asthma, rhinitis. Vital Signs Vital Signs Vital Signs: 12/10/22 00:23 12/10/22 00:26 Temperature 96.5 F L Temperature Source Temporal Pulse Rate 58 L Respiratory Rate 16 Respiratory Effort Normal Respiratory Pattern Normal Blood Pressure 89/54 L Blood Pressure Mean 65 Pulse Ox 94 Oxygen Delivery Method Room Air Weight Weight: 168 lb 3.403 oz Body Mass Index (BMI) 25.5 Physical Exam Narrative Physical Examination: General: Awake, alert, oriented x 3 and cooperative, seated upright in the ED bed, fatigued, notes feeling somewhat improved with recent IV fluids. Skin: Normal color, normal turgor, no icterus, no cyanosis. HEENT: AT/NC, EOMI, PERRLA, dry MM, no carotid bruits or JVD noted. Lungs: Mild diminished, greater is, appropriate effort, no rales, ronchi or wheezing. Heart: Mildly bradycardic with rate rhythm; no gallop, rub audible. Abdomen: Soft, overweight, NTTP, mildly distended, mildly hyperactive bowel sounds, no obvious HSM. Extremities: No cyanosis, clubbing, or edema. Neurological: Patient awake, alert, oriented as noted, cognitive function intact; pupils equally reactive to light and accommodation, cranial nerves II- XII grossly normal, moving all 4 extremities, no focal deficits, strength moderately to severely global decrease secondary to recent acute illness Psychiatric: Affect appears flat, fatigued, no acute evidence of depressive or anxiety feelings. Results Lab / Micro Data Result Diagrams: 12/10/22 01:00 12/10/22 01:00 Labs: Laboratory Results - last 24 hr 12/10/22 01:00: WBC 5.0, RBC 5.12, Hgb 16.6 H, Hct 48.2, MCV 94.1 H, MCH 32.4 H, MCHC 34.4, RDW Std Deviation 42.3, RDW Coeff of Beni 12.0, Plt Count 242, MPV 9.2, Immature Gran % (Auto) 0.200, Neut % (Auto) 70.6 H, Lymph % (Auto) 12.1 L, [place] % (Auto) 12.3 H, Eos % (Auto) 4.6, Baso % (Auto) 0.2, Absolute Neuts (auto) 3.6, Absolute Lymphs (auto) 0.61 L, Nucleated RBC % 0 12/10/22 01:00: Sodium 134 L, Potassium 4.0, Chloride 107, Carbon Dioxide 19.0 L , Anion Gap 8, BUN 64 H, Creatinine 1.63 H, Estim Creat Clear Calc 34.97, Est GFR (MDRD) Af Amer 53 L, Est GFR (MDRD) Non-Af 43 L, BUN/Creatinine Ratio 39.3 H , Glucose 135 H, Calcium 8.2 L Assessment & Plan Assessment/Plan (1) Acute kidney injury: PLAN: Plan The patient is an 81 y/o M w/ PMHx: Anxiety and Depression, CAD s/p PCI, Asthma, BPH, EH on CPAP, Crohns disease, GERD, HTN, HLD, Hypothyroidism, Hx migraine headaches, recent ED evaluation on 12/08/22 with 3-day history at that time of persistent diarrhea, fatigue and malaise with low-grade temperatures with nausea without emesis with decreased oral intake complicated by history of partial colon resection secondary to complicated perforated appendicitis with work-up at that time notable for BUN/creatinine 74/2.81, enteric stool now returned with + rotaviral infection with preference for return to home following hydration who now represents to the [facility] ED on 12/10/22 secondary to worsening status with increasing weakness, fatigue and malaise as well as low blood pressures at home with systolics in the 80s prompting return. #1. Persistent nausea without emesis, diarrhea although lessening secondary to acute rotaviral gastroenteritis complicated by hypotension secondary to GI losses and acute kidney injury as noted #2: We will admit to medical surgical floor telemetry, will continue aggressive hydration, will continue conservative interventions given rotaviral illness, will initiate loperamide regimen, will have anti-emetics, pain regimen PRN, initiate clears and advance diet as tolerated, maintain on IV PPI until improving oral intake. PT/OT/case management consultation for discharge planning. #2. Acute kidney injury, improving: Secondary to GI losses. Admission BUN/Cr 60/1.63, recent presentation 12/08/2022 BUN/creatinine 74/2.81 at that time, prior baseline creatinine noted to be 0.9-1.1 primary. Will continue to do juices hydrate, hold nephrotoxic medications and repeat chemistry in AM. #3. CAD: Status post prior PCI, we will continue aspirin, Plavix, holding hypertensive regimen given hypotension, continue statin therapy. #4. Hypertension: As noted upon presentation given GI losses patient is hypotensive, holding all hypertensive regimen, add back once appropriate. #5. Hyperlipidemia: We will continue home statin therapy. #6. Chronic asthma: Not on any chronic inhaler regimen, will have as needed albuterol #7. Anxiety and depression: We will continue patient on sertraline regimen. #8. EH: Given persistent nausea type symptoms will defer usage of CPAP until sure clinically improving, may utilize supplemental oxygen in the interim. #9. Hypothyroidism: We will continue patient home levothyroxine regimen #10. GERD: Will maintain on PPI. #11. BPH: Per current list patient not on any chronic regimen, if necessary may add but would defer until BP improving. #12. Chart reported history of Crohn's disease: Per current list not on any chronic medications, encourage continued outpatient follow-up with gastroenterology as previously arranged. #13. DVT prophylaxis: Heparin. #14. CODE status: Patient HCPOA is and they believe that their sons are secondaries and living will is currently in place. Discussed CODE status at length including difference between FULL code, DNR-CCA and DNR-CC status. Following discussions about the differences in these status, requested Full Code status. Advanced Care Planning Face to Face Time: 16 minutes. Admission Evaluation Time spent evaluating chart, patient history, patient evaluation, care planning and discussion with specialists: 75 minutes. Charges/Coding Visit Charges Inpatient E&M: 25826 Init Hosp L3 Procedures Hospitalists Procedures: 00888 Advncd Care Plan 30 Min
[2022-12-10] MEDS: 0.9% Normal Saline 1,000 ML 125 ML IV ×2 (03:50→12:14)
[2022-12-10] MEDS: Levothyroxine 112 MCG Tablet PO (06:43)
[2022-12-10 07:10] LABS: Absolute Lymphocyte Count 0.59 X10^3/uL (0.83-4.51); Absolute Neutrophil Count 2.1 X10^3/uL (2.0-7.7); Basophil# 0.01 X10^3/uL; Basophil% 0.3 % (0-1); Eosinophil# 0.15 X10^3/uL; Eosinophils% 4.3 % (0-5); Hemoglobin 14.6 g/dL (13.0-16.5); Lymphocyte # 0.59 X10^3/ul (0.83-4.51); Mean Corpuscular Hgb 31.9 pg (27.0-32.0); Mean Corpuscular Volume 93.9 fL (80-94); Mean Platelet Vol. 9.3 fl (6.2-12.0); Monocyte# 0.59 X10^3/uL; NRBC Flagged by Analyzer 0 % (0-5); Neutrophil # 2.13 X10^3/uL (2.7-7.7); Neutrophil % 61.1 % (47-70); POSITIVE DIFFERENTIAL YES; Platelet Count 205 K/mm3 (150-450); RBC Distribution Width SD 41.9 fl (35.1-43.9); Red Blood Count 4.58 M/mm3 (4.6-6.2); White Blood Count 3.5 K/mm3 (4.4-11.0)
[2022-12-10 07:17] LABS: Differential Indicated SCAN CRITERIA MET
--- NOTE | 2022-12-10 07:30 | PN.HOSP_ITS ---
Reason for Visit Reason for Visit: Diagnoses Acute kidney failure, unspecified (12/10/22) Subjective Subjective Follow-up for acute kidney injury due to severe hypovolemia due to diarrhea. Objective Data Objective Data Vital Signs: Vital Signs Temp Pulse Resp BP Pulse Ox O2 Del Method 97.9 F 59 L 18 122/62 H 96 Room Air 12/10/22 03:30 12/10/22 03:30 12/10/22 03:30 12/10/22 03:30 12/10/22 03:30 12/10/22 03:30 Oxygen Delivery Method Room Air Weight: 168 lb 3.403 oz Body Mass Index (BMI) 25.5 Intake & Output: Intake and Output for Last 24 Hours 12/08/22 12/09/22 12/10/22 23:59 23:59 23:59 Intake Total 970.83 / 970.83 Balance 970.83 / 970.83 Lab / Micro Data Result Diagrams: 12/10/22 06:45 12/10/22 06:45 Labs: Laboratory Results - last 24 hr 12/10/22 01:00: WBC 5.0, RBC 5.12, Hgb 16.6 H, Hct 48.2, MCV 94.1 H, MCH 32.4 H, MCHC 34.4, RDW Std Deviation 42.3, RDW Coeff of Beni 12.0, Plt Count 242, MPV 9.2, Immature Gran % (Auto) 0.200, Neut % (Auto) 70.6 H, Lymph % (Auto) 12.1 L, [place] % (Auto) 12.3 H, Eos % (Auto) 4.6, Baso % (Auto) 0.2, Absolute Neuts (auto) 3.6, Absolute Lymphs (auto) 0.61 L, Nucleated RBC % 0 12/10/22 01:00: Sodium 134 L, Potassium 4.0, Chloride 107, Carbon Dioxide 19.0 L , Anion Gap 8, BUN 64 H, Creatinine 1.63 H, Estim Creat Clear Calc 34.97, Est GFR (MDRD) Af Amer 53 L, Est GFR (MDRD) Non-Af 43 L, BUN/Creatinine Ratio 39.3 H , Glucose 135 H, Calcium 8.2 L 12/10/22 01:00: Phosphorus 4.1, Magnesium 2.3 12/10/22 06:45: WBC 3.5 L, RBC 4.58 L, Hgb 14.6, Hct 43.0, MCV 93.9, MCH 31.9, MCHC 34.0, RDW Std Deviation 41.9, RDW Coeff of Beni 12.0, Plt Count 205, MPV 9.3, Immature Gran % (Auto) 0.300, Neut % (Auto) 61.1, Lymph % (Auto) 17.0 L, [place] % (Auto) 17.0 H, Eos % (Auto) 4.3, Baso % (Auto) 0.3, Absolute Neuts (auto) 2.1, Absolute Lymphs (auto) 0.59 L, Nucleated RBC % 0 Physical Exam Narrative Patient had severe diarrhea for last 2 days and then moderate yesterday. It was clear watery diarrhea with no blood or mucus. He also had muscle aches and calf and thigh and bony pain but feeling better today. No fever. No abdominal pain. Physical exam General: Alert, Oriented x3, Cooperative HEENT: Atraumatic, PERRLA, EOMI, Normocephalic Oral: Oral mucosa moist. No Gingival or Mucosal Lesions/ Ulcerations Neck: Supple, No JVD, Negative Carotid Bruits Lungs: Air entry diminished in bilateral lung bases. No crepitation/rhonchi Cardiovascular: Regular rate, Regular Rhythm, Normal S1, Normal S2, No murmurs Abdomen: Bowel Sounds Present, Soft, Non Tender, Non-Distended : No renal angle tenderness. No suprapubic tenderness. Extremities: No edema, Capillary Refill Less than 3 Seconds Skin: No rashes, No breakdown Musculoskeletal: No Tenderness to Palpation of Joints or Extremities Neurological: Cranial nerves II-XII grossly intact, DTR 2+/4 and Symmetrical, Neuro grossly intact Psych/Mental Status: Normal Affect, Appropriate. Assessment & Plan Assessment/Plan (1) Acute kidney injury: PLAN: Plan The patient is an 81 y/o M is being admitted for persistent profuse diarrhea for 4 days. Patient is diagnosed with rotavirus diarrhea on 12/09 after ED visit. Patient returned with severe dehydration, dizzy lightheaded on standing, hypotension and SBP 80s.Patient is urinating. Denies nausea vomiting or abdominal pain. #1. Severe dehydration and hypovolemia due to acute gastroenteritis from acute rotavirus diarrhea associated with symptomatic hypotension and CHERELLE: Patient is being admitted on pressure for volume resuscitation. Symptomatic management if needed for vomiting abdominal pain. Serum potassium magnesium and phosphorus are in normal range. #2. Acute kidney injury, prerenal improving: Secondary to GI losses. Admission BUN/Cr 60/1.63, recent presentation 12/08/2022 BUN/creatinine 74/2.81 at that time, prior baseline creatinine noted to be 0.9-1.1 primary. Hold nephrotoxic medications. Monitor intake and output. Monitor kidney function electrolytes #3. CAD: Status post prior PCI, continue aspirin, Plavix, holding hypertensive regimen given hypotension, continue statin therapy. #4. Hypertension: As noted upon presentation given GI losses patient is hypotensive, holding all hypertensive regimen, add back once appropriate. #5. Hyperlipidemia: continue home statin therapy. #6. Chronic asthma: Not on any chronic inhaler regimen, as needed albuterol #7. Anxiety and depression: We will continue patient on sertraline regimen. #8. EH: CPAP at night #9. Hypothyroidism continue patient home levothyroxine regimen #10. GERD: Will maintain on PPI. #11. BPH: Per current list patient not on any chronic regimen, if necessary may add but would defer until BP improving. #12. Chart reported history of Crohn's disease: Per current list not on any chronic medications, encourage continued outpatient follow-up with gastroent erology as previously arranged. #13. DVT prophylaxis: Heparin. #14. CODE status: Patient GIL is and they believe that their sons are secondaries and living will is currently in place. Discussed CODE status at length including difference between FULL code, DNR-CCA and DNR-CC status. Follow ing discussions about the differences in these status, requested Full Code status. Laboratory Results 12/10/22 01:00: Phosphorus 4.1, Magnesium 2.3 12/10/22 06:45: WBC 3.5 L, RBC 4.58 L, Hgb 14.6, Hct 43.0, MCV 93.9, MCH 31.9, MCHC 34.0, RDW Std Deviation 41.9, RDW Coeff of Beni 12.0, Plt Count 205, MPV 9.3, Immature Gran % (Auto) 0.300, Neut % (Auto) 61.1, Lymph % (Auto) 17.0 L, M audrey % (Auto) 17.0 H, Eos % (Auto) 4.3, Baso % (Auto) 0.3, Absolute Neuts (auto) 2.1, Absolute Lymphs (auto) 0.59 L, Nucleated RBC % 0, Differential Comment COMMENT, Diff Path Review January12/10/22 06:45: Sodium 136, Potassium 4.3, Chloride 109 H, Carbon Dioxide 19.0 L , Anion Gap 8, BUN 57 H, Creatinine 1.35 H, Estim Creat Clear Calc 42.22, Est GFR (MDRD) Af Amer 65, Est GFR (MDRD) Non-Af 54 L, BUN/Creatinine Ratio 42.2 H, Glucose 96, Calcium 7.7 L, Total Bilirubin 0.90, AST 15, ALT 22, Alkaline Phosphatase 66, Total Protein 5.8 L, Albumin 2.9 L, Globulin 2.9, Albumin/Globulin Ratio 1.0 Charges/Coding Visit Charges Inpatient E&M: 65303 Subs Hosp L2
[2022-12-10 07:35] LABS: AST(SGOT) 15 U/L (15-37); Alanine Aminotransfer ALT/SGPT 22 U/L (16-61); Albumin, Serum 2.9 g/dL (3.2-5.0); Alkaline Phosphatase 66 U/L (45-117); Anion Gap 8 (5-15); BUN 57 mg/dL (7-18); BUN/Creat Ratio 42.2 RATIO (10-20); Calcium,Total 7.7 mg/dL (8.5-10.1); Chloride 109 mmol/L (98-107); Creatinine, Serum 1.35 mg/dL (0.70-1.30); EST Glomerular Filtration Rate 54 mL/min (>60); Est Glom Filt Rate - Afr Amer 65 mL/min (>60); Estimated Creatinine Clearance 42.22 ml/min; Globulin 2.9 g/dL (2.2-4.2); Glucose 96 mg/dL (74-106); Potassium 4.3 mmol/L (3.5-5.1); Protein, Total 5.8 g/dL (6.4-8.2); Sodium Level 136 mmol/L (136-145)
[2022-12-10] MEDS: Cyanocobalamin 500 MCG Tablet 250 MCG PO (08:23)
--- NOTE | 2022-12-10 09:50 | CASEMGMT ---
RN JAN Face to Face with patient for initial transition planning/care coordination assessment. RN CM introduced self and role at [facility]. Patient lying in bed, alert and oriented, at bedside. Patient willing to participate in assessment and is able to answer all questions appropriately. Care providers, pharmacy, and demographics verified. Patient wishes to discharge home, denies need for home health at this time. Patient states he has no further needs or concerns at this time. CM to follow for discharge planning needs that may arise. PCP: Renetta Specialists: Martha, vulcanizer; Ignacio, urologist; Elan, ENT; Emiliano, surgeon Preferred Pharmacy: [facility] Insurance: Now In [employer] Prescription Benefit: yes Living Will/HPOA: yes, Radha Miner LNOK: , sons Living Arrangements: Patient lives with in a single story home with 2 steps and railing to enter the home. Patient states he is independent Transportation: self, children DME/HHC: Patient states he has built in shower chair, raised toilet, cane, walker, and cpap at home. No previous HHC or SNF. Disposition Plan: Patient to discharge home with family support and follow-up plans in place. Candace LAWRENCE, RN, CM
[2022-12-10] MEDS: Sertraline 50 MG Tablet 25 MG PO (09:56)
[2022-12-10] MEDS: Clopidogrel Bisulfate 75 MG Tablet PO (09:56)
[2022-12-10] MEDS: Heparin Injection (Vial) 5,000 UNIT/ML VIAL 5000 UNIT SC ×2 (09:56→21:48)
[2022-12-10] MEDS: Pantoprazole Sodium 20 MG Tablet PO ×2 (09:56→21:48)
[2022-12-10] MEDS: Lactated Ringers 1,000 ML 125 ML IV (16:34)
[2022-12-10] MEDS: Multivitamins,Therapeutic Tablet 1 TABLET PO (16:34)
[2022-12-10] MEDS: Rosuvastatin Calcium 5 MG Tablet PO (21:48)
[2022-12-10] MEDS: Aspirin 81 MG TAB.CHEW PO (21:48)
[2022-12-10] MEDS: Gabapentin 600 MG Tablet PO (23:29)
[2022-12-11 05:09] VITALS: BMI 25.6
[2022-12-11] MEDS: Levothyroxine 112 MCG Tablet PO (05:28)
[2022-12-11 05:30] VITALS: BP 138/68; PULSE 68; RESP 16; TEMP 36.7; O2SAT 95
[2022-12-11 07:37] LABS: Anion Gap 11 (5-15); BUN 30 mg/dL (7-18); BUN/Creat Ratio 26.8 RATIO (10-20); Calcium,Total 8.4 mg/dL (8.5-10.1); Chloride 107 mmol/L (98-107); Creatinine, Serum 1.12 mg/dL (0.70-1.30); EST Glomerular Filtration Rate 67 mL/min (>60); Est Glom Filt Rate - Afr Amer 81 mL/min (>60); Estimated Creatinine Clearance 50.89 ml/min; Glucose 92 mg/dL (74-106); Potassium 3.8 mmol/L (3.5-5.1); Sodium Level 140 mmol/L (136-145)
[2022-12-11 09:13] VITALS: BP 150/73; PULSE 70; RESP 16; TEMP 36.9; O2SAT 94
[2022-12-11] MEDS: Cyanocobalamin 500 MCG Tablet 250 MCG PO (09:23)
[2022-12-11] MEDS: Pantoprazole Sodium 20 MG Tablet PO (09:24)
[2022-12-11] MEDS: Heparin Injection (Vial) 5,000 UNIT/ML VIAL 5000 UNIT SC (09:24)
[2022-12-11] MEDS: Clopidogrel Bisulfate 75 MG Tablet PO (09:25)
[2022-12-11] MEDS: Sertraline 50 MG Tablet 25 MG PO (09:25)
--- NOTE | 2022-12-11 10:18 | DCINST_ITS ---
Discharge Instructions Diet Discharge Diet: No restrictions Activity Discharge Activity: Return to Normal Activity Weight Bearing Status: Weight bearing as tolerated Dressing / Incision Call your doctor if you observe: Fever of 101 or Higher, Coldness, Increased Pain, Numbness or Tingling, Change in Color, Inability to urinate, Inability to have a bowel movement, Shortness of breath, Dizziness, Fainting spells, Swelling in the ankles, Chest pain, Prolonged hiccupping, Increased palpitations (irregular heartbeat) and Calf discomfort Follow Up Care When: IN 2 WEEKS Test Results: Test results from this visit will be discussed in further detail at your follow- up appointment, if applicable. Discharge Plan Admission Admit Date/Time: 12/10/22 02:13 Attending Provider: Khanh Denson Primary Care Provider: Tania Jackson Consulting Providers: Sammie El Discharge Orders/Prescriptions Prescriptions: Continued Ultra CoQ10 75 mg capsule 30 mg PO DAILY famotidine [Pepcid] 20 mg tablet 20 mg PO BID testosterone cypionate 100 mg/mL oil 100 mg IM Q2W Qty: 10 triamcinolone acetonide 55 mcg aerosol,spray 2 spray INTRANASAL DAILY PRN (Reason: NOSE BLEEDS) Rx Instructions: administer into each nostril diclofenac sodium 1 % gel 2 g topical PRN PRN (Reason: Pain) Rx Instructions: apply to single elbow, wrist or hand; for hand includes palm/fingers/back of hand nitroglycerin 0.4 mg tablet, sublingual 0.4 mg sublingual Q5M PRN (Reason: chest pain) Qty: 25 3RF Rx Instructions: do not exceed 3 doses per episode cinnamon bark [Cinnamon] 500 mg capsule 1,000 mg PO DAILY apple cider vinegar 600 mg capsule 600 mg PO DAILY [id number] 600 mg calcium- 800 unit-50 mg tablet 1 tab PO DAILY ipratropium bromide 42 mcg (0.06 %) spray,non-aerosol 2 spray intranasal DAILY PRN (Reason: Congestion) Label Comments: [place] 2 spray into both nostrils once a day as needed aspirin 81 MG tablet,chewable 81 mg PO QHS Label Comments: preventative for stroke heart WAS TOLD TO STOP FOR 08/20/18 for endo on 08/24/18 Rx Instructions: Takes in Evening multivitamin with folic acid 1 TABLET tablet 1 tab PO DAILY Label Comments: suppliment Rx Instructions: Takes in the evening cyanocobalamin (vitamin B-12) 500 mcg tablet 250 mcg PO DAILY@0800 Label Comments: suppliment bilberry 100 mg capsule 1,000 mg PO QHS wheat dextrin 1 EACH powder in packet 1 ea PO DAILY isosorbide mononitrate 60 mg tablet extended release 24 hr 120 mg PO BID hydrochlorothiazide 25 mg tablet 25 mg PO DAILY losartan 50 mg tablet 50 mg PO BID nifedipine 30 mg tablet extended release 30 mg PO DAILY gabapentin 300 mg Tablet 300 mg PO 0200 gabapentin 600 mg Tablet 600 mg PO DINNER clopidogrel 75 mg tablet 75 mg PO DAILY Qty: 90 3RF labetalol 200 mg tablet 200 mg PO BID Qty: 180 4RF rosuvastatin 5 mg tablet 5 mg PO QHS Qty: 90 3RF levothyroxine 112 mcg tablet 112 mcg PO QDAY Qty: 90 2RF sertraline 25 mg tablet 25 mg PO DAILY Qty: 90 1RF Referrals / Follow Up: Tania Jackson MD [Primary Care Provider] - Within 2 Weeks Disposition Disposition (needs filled in before D/C Order can be placed): Home, Self Care
--- NOTE | 2022-12-11 12:24 | DS.PCM_ITS ---
Providers Date of Admission: 12/10/22 Date of Discharge: 12/11/22 Primary Care Physician: Dr. Tania Jackson MD Reason For Visit: ROTAVIRUS, RECENT CHERELLE, FTT ADULT Diagnosis Discharge Diagnosis (1) Acute kidney injury: Status: Acute Code(s): N17.9 - Acute kidney failure, unspecified Plan The patient is an 81 y/o M is being admitted for persistent profuse diarrhea for 4 days. Patient is diagnosed with rotavirus diarrhea on 12/09 after ED visit. Patient returned with severe dehydration, dizzy lightheaded on standing, hypotension and SBP 80s.Patient is urinating. Denies nausea vomiting or abdom inal pain. #1. Severe dehydration and hypovolemia due to acute gastroenteritis from acute rotavirus diarrhea associated with symptomatic hypotension and CHERELLE: Patient is being admitted on pressure for volume resuscitation. Symptomatic management if needed for vomiting abdominal pain. Serum potassium magnesium and phosphorus are in normal range. 12/11: Patient is fully rehydrated. Patient has soft to near normal bowel movement today. Diarrhea has resolved. Electrolytes in normal range. Patient is being discharged home. #2. Acute kidney injury, prerenal improving: Secondary to GI losses. Admission BUN/Cr 60/1.63, recent presentation 12/08/2022 BUN/creatinine 74/2.81 at that time, prior baseline creatinine noted to be 0.9-1.1 primary. Hold nephrotoxic medications. Monitor intake and output. Monitor kidney function electrolytes 12/11: CHERELLE resolved. BUN 30, creatinine 1.12. Patient advised to resume losartan and HCTZ and nifedipine. #3. CAD: Status post prior PCI, continue aspirin, Plavix, holding hypertensive regimen given hypotension, continue statin therapy. #4. Hypertension: As noted upon presentation given GI losses patient is hypotensive, holding all hypertensive regimen, add back once appropriate. 12/11: Hypotension has resolved. Patient blood pressure is mildly elevated because of holding antihypertensive medication. Home BP medications resumed. #5. Hyperlipidemia: continue home statin therapy. #6. Chronic asthma: Not on any chronic inhaler regimen, as needed albuterol #7. Anxiety and depression: We will continue patient on sertraline regimen. #8. EH: CPAP at night #9. Hypothyroidism continue patient home levothyroxine regimen #10. GERD: Will maintain on PPI. #11. BPH: Per current list patient not on any chronic regimen, if necessary may add but would defer until BP improving. #12. Chart reported history of Crohn's disease: Per current list not on any chronic medications, encourage continued outpatient follow-up with gastroente rology as previously arranged. #13. DVT prophylaxis: Heparin. #14. CODE status: Patient GIL is and they believe that their sons are secondaries and living will is currently in place. Discussed CODE status at length including difference between FULL code, DNR-CCA and DNR-CC status. Following discussions about the differences in these status, requested Full Code status. Medications at Discharge Home Medications aspirin 81 mg chewable tablet 81 mg PO QHS Heart 03/20/14 multivitamin with folic acid 400 mcg tablet 1 tab PO DAILY Vitamin 03/20/14 cyanocobalamin (vitamin B-12) 500 mcg tablet 250 mcg PO DAILY@0800 Vitamin 06/08/18 coenzyme Q10 75 mg capsule (Ultra CoQ10) 30 mg PO DAILY pain 06/01/19 famotidine 20 mg tablet (Pepcid) 20 mg PO BID congestion 08/22/19 wheat dextrin 3 gram/3.5 gram oral powder packet 1 ea PO DAILY supplement 09/26/19 diclofenac sodium 1 % topical gel 2 g topical PRN PRN Pain 07/30/21 testosterone cypionate 100 mg/mL intramuscular oil 100 mg IM Q2W hormone #10 mL 10/29/21 clopidogrel 75 mg tablet 75 mg PO DAILY Heart #90 tabs 01/13/22 labetalol 200 mg tablet 200 mg PO BID Blood pressure #180 tabs 01/13/22 rosuvastatin 5 mg tablet 5 mg PO QHS cholesterol #90 tabs 01/13/22 apple cider vinegar 600 mg capsule 600 mg PO DAILY paiin 02/11/22 cinnamon bark 500 mg capsule (Cinnamon) 1,000 mg PO DAILY pain 02/11/22 isosorbide mononitrate 60 mg tablet,extended release 24 hr 120 mg PO BID blood pressure 04/10/22 nitroglycerin 0.4 mg sublingual tablet 0.4 mg sublingual Q5M PRN chest pain #25 tabs 04/29/22 triamcinolone acetonide 55 mcg nasal spray aerosol 2 spray intranasal DAILY PRN NOSE BLEEDS 04/29/22 calcium 600 mg-D3 800 unit-mag11 50 [id number]-[id number]-tamar-s.borat tablet 1 tab PO DAILY pain 07/15/22 levothyroxine 112 mcg tablet 112 mcg PO QDAY Thyroid #90 tabs 07/18/22 sertraline 25 mg tablet 25 mg PO DAILY #90 tabs 09/30/22 bilberry 100 mg capsule 1,000 mg PO QHS Eye function 10/31/22 ipratropium bromide 42 mcg (0.06 %) nasal spray 2 spray intranasal DAILY PRN Congestion 10/31/22 gabapentin 300 mg tablet 300 mg PO 0200 RESTLESS LEGS 12/10/22 gabapentin 600 mg tablet 600 mg PO DINNER RESTLESS LEGS 12/10/22 hydrochlorothiazide 25 mg tablet 25 mg PO DAILY blood pressure 12/10/22 losartan 50 mg tablet 50 mg PO BID blood pressure 12/10/22 nifedipine 30 mg tablet,extended release 30 mg PO DAILY blood pressure 12/10/22 Physical Exam Narrative Seen and examined on the day of discharge. Soft bowel movement today. No abdominal pain. No muscle calf aches. Physical exam General: Alert, Oriented x3, Cooperative HEENT: Atraumatic, PERRLA, EOMI, Normocephalic Oral: Oral mucosa moist. No Gingival or Mucosal Lesions/ Ulcerations Neck: Supple, No JVD, Negative Carotid Bruits Lungs: Air entry diminished in bilateral lung bases. No crepitation/rhonchi Cardiovascular: Regular rate, Regular Rhythm, Normal S1, Normal S2, No murmurs Abdomen: Bowel Sounds Present, Soft, Non Tender, Non-Distended : No renal angle tenderness. No suprapubic tenderness. Extremities: No edema, Capillary Refill Less than 3 Seconds Skin: No rashes, No breakdown Musculoskeletal: No Tenderness to Palpation of Joints or Extremities Neurological: Cranial nerves II-XII grossly intact, DTR 2+/4 and Symmetrical, Neuro grossly intact Psych/Mental Status: Normal Affect, Appropriate. Medical Records Data Medical Nutrition Assessment Dietitian: Malnutrition Criteria Met Start: 12/10/22 15:22 Freq: Status: Active Protocol: Document 12/10/22 15:22 (Rec: 12/10/22 15:22 [id number]) Nutrition Malnutrition Evidence of Malnutrition Exists Yes Malnutrition (severe): Acute Illness/Injury Evidenced By Suboptimal Energy Intake ( Severe),Weight Loss (Severe) Clinical Problem Acute Disease or Injury Related Malnutrition Etiology severe, acute malnutrition related to inadequate energy intake w/ GI illness Signs/Symptoms as evidenced by unitentional 9 .8#/5.5% wt loss x 1 week; estimated PO intake meeting < 50% of estimated energy needs > 5 days Status Active Problem Recommendation Dietitian Recommendations/Changes will liberalize diet to regular, no added salt given recent acute malnutrition; will monitor PO intake as established and provide ONS if indicated Weight / BMI Weight Weight: 169 lb 5.04 oz Body Mass Index (BMI) 25.6 ABG / Lab / Microbiology Data Result Diagrams: 12/10/22 06:45 12/11/22 06:26 Laboratory: Laboratory Results - last 24 hr 12/11/22 06:26: Sodium 140, Potassium 3.8, Chloride 107, Carbon Dioxide 22.0, Anion Gap 11, BUN 30 H, Creatinine 1.12, Estim Creat Clear Calc 50.89, Est GFR (MDRD) Af Amer 81, Est GFR (MDRD) Non-Af 67, BUN/Creatinine Ratio 26.8 H, Glucose 92, Calcium 8.4 L D/C Instructions Discharge Diet: No restrictions Weight Bearing Status: Weight bearing as tolerated Call your doctor if you observe: Fever of 101 or Higher, Coldness, Increased Pain, Numbness or Tingling, Change in Color, Inability to urinate, Inability to have a bowel movement, Shortness of breath, Dizziness, Fainting spells, Swelling in the ankles, Chest pain, Prolonged hiccupping, Increased palpitations (irregular heartbeat) and Calf discomfort When: IN 2 WEEKS Meaningful Use Info Meaningful Use Diagnoses (Choose all that apply): None applicable Discharge Plan Admission Admit Date/Time: 12/10/22 02:13 Attending Provider: Khanh Denson Primary Care Provider: Tania Jackson Consulting Providers: Sammie El Discharge Orders/Prescriptions Prescriptions: Continued Ultra CoQ10 75 mg capsule 30 mg PO DAILY famotidine [Pepcid] 20 mg tablet 20 mg PO BID testosterone cypionate 100 mg/mL oil 100 mg IM Q2W Qty: 10 triamcinolone acetonide 55 mcg aerosol,spray 2 spray INTRANASAL DAILY PRN (Reason: NOSE BLEEDS) Rx Instructions: administer into each nostril diclofenac sodium 1 % gel 2 g topical PRN PRN (Reason: Pain) Rx Instructions: apply to single elbow, wrist or hand; for hand includes palm/fingers/back of hand nitroglycerin 0.4 mg tablet, sublingual 0.4 mg sublingual Q5M PRN (Reason: chest pain) Qty: 25 3RF Rx Instructions: do not exceed 3 doses per episode cinnamon bark [Cinnamon] 500 mg capsule 1,000 mg PO DAILY apple cider vinegar 600 mg capsule 600 mg PO DAILY [id number] 600 mg calcium- 800 unit-50 mg tablet 1 tab PO DAILY ipratropium bromide 42 mcg (0.06 %) spray,non-aerosol 2 spray intranasal DAILY PRN (Reason: Congestion) Label Comments: [place] 2 spray into both nostrils once a day as needed aspirin 81 MG tablet,chewable 81 mg PO QHS Label Comments: preventative for stroke heart WAS TOLD TO STOP FOR 08/20/18 for endo on 08/24/18 Rx Instructions: Takes in Evening multivitamin with folic acid 1 TABLET tablet 1 tab PO DAILY Label Comments: suppliment Rx Instructions: Takes in the evening cyanocobalamin (vitamin B-12) 500 mcg tablet 250 mcg PO DAILY@0800 Label Comments: suppliment bilberry 100 mg capsule 1,000 mg PO QHS wheat dextrin 1 EACH powder in packet 1 ea PO DAILY isosorbide mononitrate 60 mg tablet extended release 24 hr 120 mg PO BID hydrochlorothiazide 25 mg tablet 25 mg PO DAILY losartan 50 mg tablet 50 mg PO BID nifedipine 30 mg tablet extended release 30 mg PO DAILY gabapentin 300 mg Tablet 300 mg PO 0200 gabapentin 600 mg Tablet 600 mg PO DINNER clopidogrel 75 mg tablet 75 mg PO DAILY Qty: 90 3RF labetalol 200 mg tablet 200 mg PO BID Qty: 180 4RF rosuvastatin 5 mg tablet 5 mg PO QHS Qty: 90 3RF levothyroxine 112 mcg tablet 112 mcg PO QDAY Qty: 90 2RF sertraline 25 mg tablet 25 mg PO DAILY Qty: 90 1RF Referrals / Follow Up: Tania Jackson MD [Primary Care Provider] - Within 2 Weeks Disposition Disposition (needs filled in before D/C Order can be placed): Home, Self Care Charges/Coding Visit Charges Inpatient E&M: 66327 Disch Hosp >30min
[2022-12-11 13:21] LABS: Pathologist Review Reviewed
[2022-12-11 13:58] VITALS: BP 153/80; PULSE 73; RESP 16; TEMP 37; O2SAT 95
== END 2022-12-11 14:13 | disposition home or self-care (01) | DRG 682 ==
LOC: ED 01:15 → MS3 06:48
PROVIDERS: Admitting Provider Family Medicine; Emergency Provider Emergency Medicine; PCP Internal Medicine; Visit Provider Internal Medicine
DX: N17.9 Acute kidney failure, unspecified (principal); E43 Unspecified severe protein-calorie malnutrition; A08.0 Rotaviral enteritis; E03.9 Hypothyroidism, unspecified; E78.5 Hyperlipidemia, unspecified; G47.33 Obstructive sleep apnea (adult) (pediatric); K21.9 Gastro-esophageal reflux disease without esophagitis; I10 Essential (primary) hypertension; E86.0 Dehydration; E86.1 Hypovolemia; I25.10 Atherosclerotic heart disease of native coronary artery without angina pectoris; J45.909 Unspecified asthma, uncomplicated; F41.9 Anxiety disorder, unspecified; Z95.5 Presence of coronary angioplasty implant and graft; Z79.02 Long term (current) use of antithrombotics/antiplatelets; Z82.5 Family history of asthma and other chronic lower respiratory diseases; Z79.82 Long term (current) use of aspirin; F32.A Depression, unspecified; N40.0 Benign prostatic hyperplasia without lower urinary tract symptoms
CPT/HCPCS: 36415; 74176; 80048; 80053; 81001; 83605; 83735; 84100; 85025; 87177; 87209; 87506; 94668; 96360; 97802; 99252; 99283; 99284; J7030; J7040; J7120; A4216; G0463

== ENCOUNTER → 2022-12-31 | Outpatient (CLI) | payer MEDICARE, OTHER, SELFPAY ==
[2022-03-26 12:12] VITALS: BMI 28.0
[2022-12-31 10:46] LABS: Hematocrit 43.9 % (40-54); Hemoglobin 14.7 g/dL (13.0-16.5); Mean Corp Hgb Conc 33.5 g/dL (32-36); Mean Corpuscular Hgb 32.4 pg (27.0-32.0); Mean Corpuscular Volume 96.7 fL (80-94); Mean Platelet Vol. 9.2 fl (6.2-12.0); Platelet Count 262 K/mm3 (150-450); RBC Distribution Width CV 12.7 % (11.6-14.6); RBC Distribution Width SD 44.4 fl (35.1-43.9); Red Blood Count 4.54 M/mm3 (4.6-6.2)
[2022-12-31 11:20] LABS: Anion Gap 0 (5-15); BUN 27 mg/dL (7-18); BUN/Creat Ratio 23.1 RATIO (10-20); Calcium,Total 8.7 mg/dL (8.5-10.1); Chloride 103 mmol/L (98-107); Creatinine, Serum 1.17 mg/dL (0.70-1.30); EST Glomerular Filtration Rate 64 mL/min (>60); Est Glom Filt Rate - Afr Amer 77 mL/min (>60); Glucose 115 mg/dL (74-106); Potassium 4.5 mmol/L (3.5-5.1); Sodium Level 133 mmol/L (136-145); Thyroid Stim Hormone (TSH) 1.49 uIU/mL (0.358-3.74)
== END | disposition home or self-care (01) ==
LOC: BIMLAB 09:40
PROVIDERS: PCP Internal Medicine; Referring Provider Nurse Practitioner Family; Visit Provider Nurse Practitioner Family
DX: N17.9 Acute kidney failure, unspecified (principal); K21.9 Gastro-esophageal reflux disease without esophagitis; E03.9 Hypothyroidism, unspecified
CPT/HCPCS: 36415; 80048; 84443; 85027

== ENCOUNTER → 2023-01-19 | Outpatient (CLI) | payer MEDICARE, OTHER, SELFPAY ==
[2022-03-26 12:12] VITALS: BMI 28.0
[2023-01-19 12:58] LABS: AST(SGOT) 13 U/L (15-37); Alanine Aminotransfer ALT/SGPT 23 U/L (16-61); Albumin, Serum 3.5 g/dL (3.2-5.0); Alkaline Phosphatase 81 U/L (45-117); Bilirubin, Direct 0.32 mg/dL (0.00-0.30); Cholesterol 134 mg/dL (200); Globulin 3.3 g/dL (2.2-4.2); High Density Lipoprotein 44 mg/dL; Protein, Total 6.8 g/dL (6.4-8.2); Triglycerides 112 mg/dL; Very Low Density Lipoprotein 22 mg/dL (5-40)
== END | disposition home or self-care (01) ==
LOC: BIMLAB 10:13
PROVIDERS: PCP Internal Medicine; Referring Provider Nurse Practitioner Gerontology; Visit Provider Nurse Practitioner Gerontology
DX: E78.00 Pure hypercholesterolemia, unspecified (principal)
CPT/HCPCS: 36415; 80061; 80076

== ENCOUNTER 2023-02-02 08:56 | Outpatient (RCR) | payer MEDICARE, OTHER, SELFPAY ==
[2022-03-26 12:12] VITALS: BMI 28.0
--- NOTE | 2023-02-02 09:52 | HP.PTEVAL ---
Patient's Visit Information IMANI MORA is a 82 year old M referred to Physical Therapy by Dr. Tania Jackson MD with a diagnosis of Debility and vertigo. Date of Evaluation: 02/02/23 Physical Therapist: MARCELLE Pete - Visit Plan Plan: DC PT at pt is not having ANY symptoms of dizziness or LOB. His Hallpike B was negative - Subjective Pt had vertigo and he talked to the Dr and said to come into PT. He had it bad for 2 days and then mild for a week and now it is gone. He had constant dizziness for 2 days. At night when he would lay down and he was spinning. That spinning would last for about 15 minutes. if he turned his head to the R it made it worse. He can lay down on his R side now without an issue. He is 100% back to normal. He is not getting on a ladder anymore. He is not having any balance issues. - Objective R Hallpike: negative for dizziness and nystagmus. L Hallpike: negative for dizziness and nystagmus - Balance/Special Test Scores Dizziness Score: 6 - Anticipated Interventions Thank you for the opportunity to evaluate your patient. For Medicare and Medicare HMO plans, please review the plan of care and approve it. It will need to be FAXED BACK to us at [phone] for Medicare purposes. For Medicare only, by signing this I certify the plan of care. Please let me know if there are questions or concerns regarding this plan of care. Physician Signature: Date:
--- NOTE | 2023-02-02 09:54 | HP.PT.NRP ---
IMANI MORA was seen in my office for initial evaluation on 02/02/23. The following Plan of Care was established for this patient: This patient was last seen in our office 02/02/23. Pertinent comments regarding their Physical therapy will appear below: Pt has no signs of symptoms of dizziness and his Hallpike test B was negative. Pt feels comfortable with discharge at this time and he will contact his Dr if his symptoms return. DC PT At this point I will be discontinuing this patient from physical therapy. I would be happy to see this patient again in the future if found appropriate by the physician. Thank you! Adriana Mims, MARCELLE Balance/Gait/Functional tests - Balance/Special Test Scores Dizziness Score: 6
== END 2023-02-02 10:43 | disposition home or self-care (01) ==
LOC: PT 08:56
PROVIDERS: PCP Internal Medicine; Referring Provider Internal Medicine; Visit Provider Internal Medicine
DX: R42 Dizziness and giddiness (principal); R53.81 Other malaise
CPT/HCPCS: 97161

== ENCOUNTER 2023-02-12 21:36 | Emergency (ER) | payer MEDICARE, OTHER, SELFPAY ==
[2022-03-26 12:12] VITALS: BMI 28.0
[2023-02-12 21:37] VITALS: BP 132/76; PULSE 71; RESP 18; TEMP 37; O2SAT 95; BMI 28.5
[2023-02-12 21:46] VITALS: BP 139/81; PULSE 70; RESP 20; O2SAT 95
--- NOTE | 2023-02-12 21:46 | EKG12_ITS ---
Test Reason : CP Blood Pressure : / mmHG Vent. Rate : 068 BPM Atrial Rate : 068 BPM P-R Int : 156 ms QRS Dur : 110 ms QT Int : 382 ms P-R-T Axes : 051 -62 048 degrees QTc Int : 406 ms Normal sinus rhythm Left anterior fascicular block Abnormal ECG Confirmed by KAYLA ANTONIO, LEE ([id number]), editorial assistant ANA LUISA ALLEN ([id number]) on 02/17/2023 10:31:15 AM Referred By: YOANA Confirmed By:LEE GARZA MD
[2023-02-12] MEDS: Aspirin 81 MG TAB.CHEW 243 MG PO (22:09)
[2023-02-12 22:10] LABS: Absolute Lymphocyte Count 0.73 X10^3/uL (0.83-4.51); Absolute Neutrophil Count 4.6 X10^3/uL (2.0-7.7); Basophil# 0.02 X10^3/uL; Basophil% 0.3 % (0-1); Eosinophil# 0.24 X10^3/uL; Eosinophils% 3.7 % (0-5); Hematocrit 47.9 % (40-54); Hemoglobin 16.5 g/dL (13.0-16.5); Lymphocyte # 0.73 X10^3/ul (0.83-4.51); Lymphocyte % 11.3 % (19-41); Mean Corp Hgb Conc 34.4 g/dL (32-36); Mean Corpuscular Hgb 32.7 pg (27.0-32.0); Mean Platelet Vol. 8.2 fl (6.2-12.0); Monocyte# 0.88 X10^3/uL; Monocyte% 13.6 % (0-10); NRBC Flagged by Analyzer 0 % (0-5); Neutrophil # 4.56 X10^3/uL (2.7-7.7); Neutrophil % 70.3 % (47-70); Platelet Count 272 K/mm3 (150-450); RBC Distribution Width CV 12.3 % (11.6-14.6); RBC Distribution Width SD 42.8 fl (35.1-43.9); Red Blood Count 5.04 M/mm3 (4.6-6.2); White Blood Count 6.5 K/mm3 (4.4-11.0)
--- NOTE | 2023-02-12 22:10 | RAD_ITS ---
INDICATION: Sweats, palpitations, chest pain EXAMINATION/TECHNIQUE: X-RAY - XR Chest 1 View COMPARISON: 04/14/2019 FINDINGS: LUNGS: Mild bibasilar atelectasis. No consolidation, edema or effusion. No pneumothorax. MEDIASTINUM AND CARDIOVASCULAR STRUCTURES: Cardiac silhouette not enlarged. Central airways and mediastinal contour are unremarkable. RAD/Chest 1 View (Portable) IMPRESSION: Mild bibasilar atelectasis. Electronically Signed: Dean Aviles MD at 22:38 EDT ,
[2023-02-12 22:31] LABS: Anion Gap 8 (5-15); BUN 21 mg/dL (7-18); BUN/Creat Ratio 18.9 RATIO (10-20); Calcium,Total 8.8 mg/dL (8.5-10.1); Chloride 92 mmol/L (98-107); Creatinine, Serum 1.11 mg/dL (0.70-1.30); EST Glomerular Filtration Rate 68 mL/min (>60); Est Glom Filt Rate - Afr Amer 82 mL/min (>60); Glucose 101 mg/dL (74-106); Potassium 4.2 mmol/L (3.5-5.1); Sodium Level 124 mmol/L (136-145); Troponin-I HS (w/2H Reflex) 6 pg/mL (3.0-78.0)
--- NOTE | 2023-02-12 22:40 | EX.ED.DYSGE1 ---
HPI History of Present Illness Chief Complaint: Chest Pain Detail of Chief Complaint: Palpitations, chest pain Informant: patient Onset/Context/Timing Onset: Today Narrative Narrative: Patient presents after an episode of palpitations and feeling hot and sweaty at home. He states that he is currently on an antibiotic for bronchitis. He went out to dinner with his this evening. After returning home he told he was on to go to the grocery store was gone for about an hour. He carry groceries in the house and then went to sit in his chair to rest. While sitting at rest he developed chills. He states before he could even get a blanket he became very hot and sweaty and felt lightheaded. His checked his blood pressure which was not abnormally elevated or low. He states he had a rare abnormal heartbeat noted. After arrival to the emergency room he developed chest pressure which she rated a 6 out of 10 but it has spontaneously resolved and he is pain-free at the time of my exam. [facility] Medical History CHERELLE (acute kidney injury) Anxiety Arthritis Asthma Atherosclerotic heart disease of [place] coronary artery with other forms of angina pectoris Back pain Bilateral knee pain BPH (benign prostatic hyperplasia) CAD (coronary artery disease) Cochlear implant in place CPAP (continuous positive airway pressure) dependence Crohns disease Debility Degenerative disc disease Essential hypertension Gastroesophageal reflux disease History of hiatal hernia Hyperlipidemia Hypothyroidism Long-term current use of high risk medication other than anticoagulant Lumbar back pain with radiculopathy affecting right lower extremity Migraine headache Nonrheumatic tricuspid (valve) insufficiency EH (obstructive sleep apnea) Piriformis syndrome Prostate disease Restless leg syndrome Sensorineural deafness Thyroid disease Umbilical hernia Vertigo Wears glasses Wears hearing aid Home Medications aspirin 81 mg chewable tablet 81 mg PO QHS Heart 03/20/14 [History Last Taken 09/25/19] multivitamin with folic acid 400 mcg tablet 1 tab PO DAILY Vitamin 03/20/14 [History Last Taken 04/13/19 22:00] cyanocobalamin (vitamin B-12) 500 mcg tablet 250 mcg PO DAILY@0800 Vitamin 06/08/18 [History Last Taken 04/14/19] coenzyme Q10 75 mg capsule (Ultra CoQ10) 30 mg PO DAILY pain 06/01/19 [History Last Taken Unknown] famotidine 20 mg tablet (Pepcid) 20 mg PO BID congestion 08/22/19 [History Last Taken 04/17/22 07:00] wheat dextrin 3 gram/3.5 gram oral powder packet 1 ea PO DAILY supplement 09/26/19 [History Last Taken Unknown] diclofenac sodium 1 % topical gel 2 g topical PRN PRN Pain 07/30/21 [History Last Taken Unknown] testosterone cypionate 100 mg/mL intramuscular oil 100 mg IM Q2W hormone #10 mL 10/29/21 [History Last Taken Unknown] labetalol 200 mg tablet 200 mg PO BID Blood pressure #180 tabs 01/13/22 [Rx Last Taken 04/17/22 07:00] apple cider vinegar 600 mg capsule 600 mg PO DAILY paiin 02/11/22 [History Last Taken Unknown] cinnamon bark 500 mg capsule (Cinnamon) 1,000 mg PO DAILY pain 02/11/22 [History Last Taken Unknown] isosorbide mononitrate 60 mg tablet,extended release 24 hr 120 mg PO BID blood pressure 04/10/22 [History Last Taken 04/17/22 07:00] nitroglycerin 0.4 mg sublingual tablet 0.4 mg sublingual Q5M PRN chest pain #25 tabs 04/29/22 [Rx Last Taken Unknown] triamcinolone acetonide 55 mcg nasal spray aerosol 2 spray intranasal DAILY PRN NOSE BLEEDS 04/29/22 [History Last Taken Unknown] calcium 600 mg-D3 800 unit-mag11 50 sr-eieb-retbpo-tamar-s.borat tablet 1 tab PO DAILY pain 07/15/22 [History Last Taken Unknown] levothyroxine 112 mcg tablet 112 mcg PO QDAY Thyroid #90 tabs 07/18/22 [Rx Last Taken Unknown] sertraline 25 mg tablet 25 mg PO DAILY #90 tabs 09/30/22 [Rx Last Taken Unknown] bilberry 100 mg capsule 1,000 mg PO QHS Eye function 10/31/22 [History Last Taken Unknown] ipratropium bromide 42 mcg (0.06 %) nasal spray 2 spray intranasal DAILY PRN Congestion 10/31/22 [History Last Taken Unknown] gabapentin 300 mg tablet 300 mg PO 0200 RESTLESS LEGS 12/10/22 [History Last Taken Unknown] gabapentin 600 mg tablet 600 mg PO DINNER RESTLESS LEGS 12/10/22 [History Last Taken Unknown] hydrochlorothiazide 25 mg tablet 25 mg PO DAILY blood pressure 12/10/22 [History Last Taken Unknown] losartan 50 mg tablet 50 mg PO BID blood pressure 12/10/22 [History Last Taken Unknown] nifedipine 30 mg tablet,extended release 30 mg PO DAILY blood pressure 12/10/22 [History Last Taken Unknown] clopidogrel 75 mg tablet 75 mg PO DAILY Heart #90 tabs 12/29/22 [Rx Last Taken Unknown] rosuvastatin 5 mg tablet 5 mg PO QHS cholesterol #90 tabs 12/30/22 [Rx Last Taken Unknown] lactobacillus combination no.4 15 billion cell capsule (Senior Probiotic) 15,000 mmu cells PO DAILY 01/12/23 [History Last Taken Unknown] azithromycin 250 mg tablet See Rx Instructions PO .COMPLEX #6 tabs 02/10/23 [Rx Last Taken Unknown] benzonatate 100 mg capsule 200 mg PO TID PRN cough #30 caps 02/10/23 [Rx Last Taken Unknown] azithromycin 250 mg capsule mg PO 02/12/23 [History Last Taken Unknown] benzonatate 100 mg capsule 100 mg PO TID 02/12/23 [History Last Taken Unknown] Allergy/AdvReac Type Severity Reaction Status Date / Time amlodipine [From Norvasc] AdvReac Intermediate upset Verified 02/12/23 21:41 stomach amoxicillin [From Augmentin] AdvReac Intermediate Nausea/Vom/ Verified 02/12/23 21:41 Diarrhea clavulanic acid AdvReac Intermediate Nausea/Vom/ Verified 02/12/23 21:41 [From Augmentin] Diarrhea lisinopril AdvReac Intermediate cough Verified 02/12/23 21:41 atorvastatin [From Lipitor] AdvReac Pain in Verified 02/12/23 21:41 joints gemfibrozil [From Lopid] AdvReac Pain in Verified 02/12/23 21:41 joints niacin AdvReac Other Verified 02/12/23 21:41 Family History Grandfather CVA (cerebral vascular accident) Depression Brother COPD (chronic obstructive pulmonary disease) Grandmother Depression Son Arthritis Father Arthritis CAD (coronary artery disease) Mother Hypertension Hyperlipidemia Pacemaker Other Cancer Surgical History eye lesion removal H/O hemorrhoidectomy H/O vasectomy History of coronary artery stent placement (09/07/18) History of left heart catheterization (11/12/18) History of prostate surgery Hx of appendectomy Hx of tonsillectomy S/P umbilical hernia repair, follow-up exam Social History household members: spouse housing: house current occupational status: retired pets and animals: No Smoking Status: Never smoker second hand exposure: No alcohol intake: never substance use type: does not use caffeine: No what type of physical activity do you participate in: walking frequency: 5-6 times per week ROS ROS ED Constitutional Constitutional ED: Reports chills and sweats; Denies fever(s) Eyes Eyes: Denies change in vision or discharge from eye(s) ENT ENT ED: Denies discharge from eye(s), rhinorrhea or sore throat Cardiovascular Cardiovascular: Reports chest pain and palpitations Respiratory/Chest Respiratory/Chest: Reports cough; Denies dyspnea Gastrointestinal Gastrointestinal: Denies abdominal pain, diarrhea, nausea or vomiting Genitourinary Genitourinary ED: Denies dysuria Musculoskeletal Musculoskeletal: Denies back pain or extremity pain Integumentary Denies Abrasions or rash Neurologic Neurologic: Denies headache(s) or weakness Psychiatric Psychiatric: Denies anxiety or depression Allergic/Immunologic Allergic/Immunologic ED: Denies lip swelling or urticaria EXAM Physical Exam Const Vital Signs: 02/12/23 21:37 02/12/23 21:46 02/12/23 22:57 Temperature 98.6 F Temperature Source Temporal Pulse Rate 71 70 Respiratory Rate 18 20 H Blood Pressure 132/76 H 139/81 H Blood Pressure Mean 94 100 Pulse Ox 95 95 98 Oxygen Delivery Method Room Air Room Air Room Air 02/12/23 22:57 02/12/23 23:23 02/13/23 01:02 Temperature Temperature Source Pulse Rate 69 70 70 Respiratory Rate 16 16 18 Blood Pressure 139/80 H 130/78 H 134/79 H Blood Pressure Mean 99 95 97 Pulse Ox 96 95 96 Oxygen Delivery Method Room Air Room Air Room Air Positive well nourished and well developed General Appearance ED: well developed HEENT Reports normocephalic and head/scalp atraumatic Eyes PERRL and EOMs intact bilaterally Neck supple Chest Wall inspection of chest normal and palpation of chest normal Resp normal respiratory effort and clear to auscultation bilaterally Cardio regular rate and regular rhythm GI normal to inspection, nondistended, normoactive bowel sounds Palpation: soft Extremity normal to inspection Neuro oriented x3 and no sensory deficits noted Sensorium / Orientation: alert Motor Exam: strength 5/5 throughout Psych mental status grossly normal Skin no rashes or lesions noted MDM MDM MDM Narrative Medical decision making narrative: Patient placed on teletypesetter monitor. EKG obtained to evaluate for cardiac arrhythmia/ischemia. Chest x-ray obtained to evaluate for acute lung pathology, cardiac size, or mediastinal abnormality. Labwork obtained to evaluate for leukocytosis, anemia, and electrolyte derangement. Patient takes baby aspirin daily and was given an additional 243 mg on arrival. Lab Data Attestation: I reviewed the patient's lab results. Labs: Laboratory Results - last 24 hr 02/12/23 02/12/23 02/13/23 21:50 21:50 00:10 WBC 6.5 RBC 5.04 Hgb 16.5 Hct 47.9 MCV 95.0 H MCH 32.7 H MCHC 34.4 RDW Std Deviation 42.8 RDW Coeff of Beni 12.3 Plt Count 272 MPV 8.2 Immature Gran % (Auto) 0.800 Neut % (Auto) 70.3 H Lymph % (Auto) 11.3 L [place] % (Auto) 13.6 H Eos % (Auto) 3.7 Baso % (Auto) 0.3 Absolute Neuts (auto) 4.6 Absolute Lymphs (auto) 0.73 L Nucleated RBC % 0 Sodium 124 L 127 L Potassium 4.2 3.9 Chloride 92 L 96 L Carbon Dioxide 24.0 23.0 Anion Gap 8 8 BUN 21 H 18 Creatinine 1.11 0.98 Estim Creat Clear Calc 50.50 57.19 Est GFR (MDRD) Af Amer 82 94 Est GFR (MDRD) Non-Af 68 78 BUN/Creatinine Ratio 18.9 18.3 Glucose 101 100 Calcium 8.8 7.9 L Troponin I High Sens 6 02/13/23 00:10 WBC RBC Hgb Hct MCV MCH MCHC RDW Std Deviation RDW Coeff of Beni Plt Count MPV Immature Gran % (Auto) Neut % (Auto) Lymph % (Auto) [place] % (Auto) Eos % (Auto) Baso % (Auto) Absolute Neuts (auto) Absolute Lymphs (auto) Nucleated RBC % Sodium Potassium Chloride Carbon Dioxide Anion Gap BUN Creatinine Estim Creat Clear Calc Est GFR (MDRD) Af Amer Est GFR (MDRD) Non-Af BUN/Creatinine Ratio Glucose Calcium Troponin I High Sens 6 Radiography Chest X-Ray - ED: 1 View, Chronic Changes and No Infiltrates Diagnostic Testing: Clinical Impression(s) from Imaging Studies Chest X-Ray 02/12/23 22:10 IMPRESSION: Mild bibasilar atelectasis. Electronically Signed: Dean Aviles MD at 22:38 EDT , EKG Initial EKG: Attestation: I personally reviewed and interpreted this EKG as follows: Interpretation: Sinus Rhythm (Sinus at 68 with left anterior fascicular block. No acute ischemia.) Treatment and Re-Evaluation :: CBC was normal white count 6.5 and normal differential. Chemistry studies significant for a sodium of 124 and a chloride of 92. BUN is slightly elevated at 21. Troponin is normal at 6. On review of prior lab values, patient has had times of hyponatremia in the past but the lowest reading I have seen is 131. Patient states he does take hydrochlorothiazide. He does tend to drink a lot of water. He does not remember ever being told that he had a problem with his sodium level in the past. Patient was given IV fluids while awaiting 2-hour repeat troponin. 2-hour repeat troponin is again normal at 6. His BNP is also repeated at that time and his sodium is 127. Patient has been up ambulating to the restroom multiple times and is completely asymptomatic. We discussed discharge to home with limited water consumption and instead opting for Powerade or Gatorade that would have the salts added. Patient states he does not have a ride till morning as his son dropped him off. I will continue to give him normal saline and have him ready for discharge when his son is able to pick him up in the morning. I will speak with his primary care physician prior to end of my shift to help ensure patient can have repeat labs drawn on Thursday after the holiday weekend. Discharge Plan Triage Chief Complaint: Chest Pain ED Provider: Leonila Montemayor Dx/Rx/DC Orders Clinical Impression: Hyponatremia, Chest pain, Palpitations Instructions: ED Hyponatremia, ED Palpitations Prescriptions: No Action Ultra CoQ10 75 mg capsule 30 mg PO DAILY famotidine [Pepcid] 20 mg tablet 20 mg PO BID testosterone cypionate 100 mg/mL oil 100 mg IM Q2W Qty: 10 triamcinolone acetonide 55 mcg aerosol,spray 2 spray INTRANASAL DAILY PRN (Reason: NOSE BLEEDS) Rx Instructions: administer into each nostril diclofenac sodium 1 % gel 2 g topical PRN PRN (Reason: Pain) Rx Instructions: apply to single elbow, wrist or hand; for hand includes palm/fingers/back of hand nitroglycerin 0.4 mg tablet, sublingual 0.4 mg sublingual Q5M PRN (Reason: chest pain) Qty: 25 3RF Rx Instructions: do not exceed 3 doses per episode cinnamon bark [Cinnamon] 500 mg capsule 1,000 mg PO DAILY apple cider vinegar 600 mg capsule 600 mg PO DAILY [id number] 600 mg calcium- 800 unit-50 mg tablet 1 tab PO DAILY Senior Probiotic 15 billion cell capsule 15,000 mmu cells PO DAILY Rx Instructions: administer with a meal ipratropium bromide 42 mcg (0.06 %) spray,non-aerosol 2 spray intranasal DAILY PRN (Reason: Congestion) Label Comments: Lindsay 2 spray into both nostrils once a day as needed azithromycin 250 mg tablet See Rx Instructions PO .COMPLEX Qty: 6 0RF Rx Instructions: take 500 mg today (day 1), then 250 mg for 4 days (days 2-5) PO benzonatate 100 mg capsule 200 mg PO TID PRN (Reason: cough) Qty: 30 0RF aspirin 81 MG tablet,chewable 81 mg PO QHS Label Comments: preventative for stroke heart WAS TOLD TO STOP FOR 08/20/18 for endo on 08/24/18 Rx Instructions: Takes in Evening multivitamin with folic acid 1 TABLET tablet 1 tab PO DAILY Label Comments: suppliment Rx Instructions: Takes in the evening cyanocobalamin (vitamin B-12) 500 mcg tablet 250 mcg PO DAILY@0800 Label Comments: suppliment bilberry 100 mg capsule 1,000 mg PO QHS wheat dextrin 1 EACH powder in packet 1 ea PO DAILY isosorbide mononitrate 60 mg tablet extended release 24 hr 120 mg PO BID hydrochlorothiazide 25 mg tablet 25 mg PO DAILY losartan 50 mg tablet 50 mg PO BID nifedipine 30 mg tablet extended release 30 mg PO DAILY gabapentin 300 mg Tablet 300 mg PO 0200 gabapentin 600 mg Tablet 600 mg PO DINNER Zithromax Z-Herberth 250 mg Capsule PO benzonatate [Tessalon Perles] 100 mg Capsule 100 mg PO TID labetalol 200 mg tablet 200 mg PO BID Qty: 180 4RF levothyroxine 112 mcg tablet 112 mcg PO QDAY Qty: 90 2RF sertraline 25 mg tablet 25 mg PO DAILY Qty: 90 1RF clopidogrel 75 mg tablet 75 mg PO DAILY Qty: 90 3RF rosuvastatin 5 mg tablet 5 mg PO QHS Qty: 90 3RF Primary Care Provider: Tania Jackson Referrals: Tania Jackson MD [Primary Care Provider] - 3-5 Days Disposition Disposition: Home, Self Care
[2023-02-12 22:57] VITALS: BP 139/80; PULSE 69; RESP 16; O2SAT 96; O2SAT 98
[2023-02-12] MEDS: 0.9% Normal Saline 1,000 ML 150 ML IV (23:19)
[2023-02-12 23:23] VITALS: BP 130/78; PULSE 70; RESP 16; O2SAT 95
[2023-02-13 00:43] LABS: Troponin-I HS 6 pg/mL (3.0-78.0)
[2023-02-13 00:54] LABS: Anion Gap 8 (5-15); BUN 18 mg/dL (7-18); BUN/Creat Ratio 18.3 RATIO (10-20); Calcium,Total 7.9 mg/dL (8.5-10.1); Chloride 96 mmol/L (98-107); Creatinine, Serum 0.98 mg/dL (0.70-1.30); EST Glomerular Filtration Rate 78 mL/min (>60); Est Glom Filt Rate - Afr Amer 94 mL/min (>60); Estimated Creatinine Clearance 57.19 ml/min; Glucose 100 mg/dL (74-106); Potassium 3.9 mmol/L (3.5-5.1); Sodium Level 127 mmol/L (136-145)
[2023-02-13 01:02] VITALS: BP 134/79; PULSE 70; RESP 18; O2SAT 96
[2023-02-13 03:44] VITALS: BP 99/75; PULSE 78; RESP 18; O2SAT 98
[2023-02-13 05:01] VITALS: BP 141/82; PULSE 75; RESP 16; O2SAT 96
== END 2023-02-13 05:01 | disposition home or self-care (01) ==
PROVIDERS: Emergency Provider Emergency Medicine; PCP Internal Medicine; Visit Provider Emergency Medicine
DX: E87.1 Hypo-osmolality and hyponatremia (principal); R07.9 Chest pain, unspecified; I10 Essential (primary) hypertension; E78.5 Hyperlipidemia, unspecified; R00.2 Palpitations; I25.10 Atherosclerotic heart disease of native coronary artery without angina pectoris
CPT/HCPCS: 71045; 80048; 84484; 85025; 93005; 99284; J7030; A4216

== ENCOUNTER → 2023-02-17 | Outpatient (CLI) | payer MEDICARE, OTHER, SELFPAY ==
[2022-03-26 12:12] VITALS: BMI 28.0
[2023-02-17 12:51] LABS: Anion Gap 6 (5-15); BUN 16 mg/dL (7-18); BUN/Creat Ratio 14.8 RATIO (10-20); Calcium,Total 8.3 mg/dL (8.5-10.1); Chloride 97 mmol/L (98-107); Creatinine, Serum 1.08 mg/dL (0.70-1.30); EST Glomerular Filtration Rate 70 mL/min (>60); Est Glom Filt Rate - Afr Amer 84 mL/min (>60); Glucose 125 mg/dL (74-106); Potassium 4.2 mmol/L (3.5-5.1); Sodium Level 129 mmol/L (136-145)
== END | disposition home or self-care (01) ==
LOC: BIMLAB 10:43
PROVIDERS: PCP Internal Medicine; Referring Provider Nurse Practitioner Family; Visit Provider Nurse Practitioner Family
DX: E87.1 Hypo-osmolality and hyponatremia (principal); I10 Essential (primary) hypertension
CPT/HCPCS: 36415; 80048

== ENCOUNTER 2023-02-27 14:55 | Emergency (ER) | payer MEDICARE, OTHER, SELFPAY ==
[2022-03-26 12:12] VITALS: BMI 28.0
[2023-02-27 14:55] VITALS: BP 154/83; PULSE 72; RESP 16; TEMP 36.8; O2SAT 94; BMI 28.0
[2023-02-27 16:01] LABS: Absolute Neutrophil Count 4.3 X10^3/uL (2.0-7.7); Basophil# 0.03 X10^3/uL; Basophil% 0.5 % (0-1); Eosinophil# 0.14 X10^3/uL; Eosinophils% 2.4 % (0-5); Hematocrit 48.9 % (40-54); Hemoglobin 16.4 g/dL (13.0-16.5); Lymphocyte % 10.3 % (19-41); Mean Corp Hgb Conc 33.5 g/dL (32-36); Mean Corpuscular Hgb 33.2 pg (27.0-32.0); Mean Platelet Vol. 8.2 fl (6.2-12.0); NRBC Flagged by Analyzer 0 % (0-5); Neutrophil # 4.33 X10^3/uL (2.7-7.7); Neutrophil % 74.6 % (47-70); POSITIVE DIFFERENTIAL YES; Platelet Count 260 K/mm3 (150-450); RBC Distribution Width CV 12.6 % (11.6-14.6); RBC Distribution Width SD 46.5 fl (35.1-43.9); Red Blood Count 4.94 M/mm3 (4.6-6.2); White Blood Count 5.8 K/mm3 (4.4-11.0)
[2023-02-27 16:31] LABS: Differential Indicated SCAN CRITERIA MET
[2023-02-27 16:35] LABS: Anion Gap 5 (5-15); BUN 20 mg/dL (7-18); BUN/Creat Ratio 17.7 RATIO (10-20); Calcium,Total 8.9 mg/dL (8.5-10.1); Chloride 102 mmol/L (98-107); Creatinine, Serum 1.13 mg/dL (0.70-1.30); EST Glomerular Filtration Rate 66 mL/min (>60); Est Glom Filt Rate - Afr Amer 80 mL/min (>60); Glucose 89 mg/dL (74-106); Potassium 4.8 mmol/L (3.5-5.1); Sodium Level 133 mmol/L (136-145)
--- NOTE | 2023-02-27 16:39 | EX.ED.DYSGE1 ---
HPI <ELIZ Garcia - Last Filed: 02/27/23 19:47> History of Present Illness Chief Complaint: Weakness Narrative Narrative: Patient presenting today due to generalized weakness that he has had since yesterday. He reports that he has been sleeping a lot more than usual. He reports concerns for hyponatremia as he was hyponatremic during his last 2 ED visits in November and January of this year. He reports that he has been trying to drink less water and drink more Gatorade to help with the hyponatremia. He reports that he has been coughing more recently but is getting over bronchitis. He has been urinating frequently even after discontinuing his HCTZ per his PCP recommendations. He has a history of CAD with stent placement, hypertension. He denies any fever, chills, chest pain, shortness of breath, abdominal pain, nausea, and vomiting. [facility] <ELIZ Garcia - Last Filed: 02/27/23 19:47> [facility] Medical History CHERELLE (acute kidney injury) Anxiety Arthritis Asthma Atherosclerotic heart disease of [place] coronary artery with other forms of angina pectoris Back pain Bilateral knee pain BPH (benign prostatic hyperplasia) CAD (coronary artery disease) Cochlear implant in place CPAP (continuous positive airway pressure) dependence Crohns disease Debility Degenerative disc disease Essential hypertension Gastroesophageal reflux disease History of hiatal hernia HTN (hypertension) Hyperlipidemia Hypothyroidism Long-term current use of high risk medication other than anticoagulant Lumbar back pain with radiculopathy affecting right lower extremity Migraine headache Nonrheumatic tricuspid (valve) insufficiency EH (obstructive sleep apnea) Piriformis syndrome Prostate disease Restless leg syndrome Sensorineural deafness Thyroid disease Umbilical hernia Vertigo Wears glasses Wears hearing aid Home Medications aspirin 81 mg chewable tablet 81 mg PO QHS Heart 03/20/14 [History Last Taken 09/25/19] multivitamin with folic acid 400 mcg tablet 1 tab PO DAILY Vitamin 03/20/14 [History Last Taken 04/13/19 22:00] cyanocobalamin (vitamin B-12) 500 mcg tablet 250 mcg PO DAILY@0800 Vitamin 06/08/18 [History Last Taken 04/14/19] coenzyme Q10 75 mg capsule (Ultra CoQ10) 30 mg PO DAILY pain 06/01/19 [History Last Taken Unknown] famotidine 20 mg tablet (Pepcid) 20 mg PO BID congestion 08/22/19 [History Last Taken 04/17/22 07:00] wheat dextrin 3 gram/3.5 gram oral powder packet 1 ea PO DAILY supplement 09/26/19 [History Last Taken Unknown] diclofenac sodium 1 % topical gel 2 g topical PRN PRN Pain 07/30/21 [History Last Taken Unknown] testosterone cypionate 100 mg/mL intramuscular oil 100 mg IM Q2W hormone #10 mL 10/29/21 [History Last Taken Unknown] labetalol 200 mg tablet 200 mg PO BID Blood pressure #180 tabs 01/13/22 [Rx Last Taken 04/17/22 07:00] apple cider vinegar 600 mg capsule 600 mg PO DAILY paiin 02/11/22 [History Last Taken Unknown] cinnamon bark 500 mg capsule (Cinnamon) 1,000 mg PO DAILY pain 02/11/22 [History Last Taken Unknown] isosorbide mononitrate 60 mg tablet,extended release 24 hr 120 mg PO BID blood pressure 04/10/22 [History Last Taken 04/17/22 07:00] nitroglycerin 0.4 mg sublingual tablet 0.4 mg sublingual Q5M PRN chest pain #25 tabs 04/29/22 [Rx Last Taken Unknown] triamcinolone acetonide 55 mcg nasal spray aerosol 2 spray intranasal DAILY PRN NOSE BLEEDS 04/29/22 [History Last Taken Unknown] calcium 600 mg-D3 800 unit-mag11 50 rn-zymu-pjucwa-tamar-s.borat tablet 1 tab PO DAILY pain 07/15/22 [History Last Taken Unknown] levothyroxine 112 mcg tablet 112 mcg PO QDAY Thyroid #90 tabs 07/18/22 [Rx Last Taken Unknown] sertraline 25 mg tablet 25 mg PO DAILY #90 tabs 09/30/22 [Rx Last Taken Unknown] bilberry 100 mg capsule 1,000 mg PO QHS Eye function 10/31/22 [History Last Taken Unknown] ipratropium bromide 42 mcg (0.06 %) nasal spray 2 spray intranasal DAILY PRN Congestion 10/31/22 [History Last Taken Unknown] gabapentin 300 mg tablet 300 mg PO 0200 RESTLESS LEGS 12/10/22 [History Last Taken Unknown] gabapentin 600 mg tablet 600 mg PO DINNER RESTLESS LEGS 12/10/22 [History Last Taken Unknown] losartan 50 mg tablet 50 mg PO BID blood pressure 12/10/22 [History Last Taken Unknown] nifedipine 30 mg tablet,extended release 30 mg PO DAILY blood pressure 12/10/22 [History Last Taken Unknown] clopidogrel 75 mg tablet 75 mg PO DAILY Heart #90 tabs 12/29/22 [Rx Last Taken Unknown] rosuvastatin 5 mg tablet 5 mg PO QHS cholesterol #90 tabs 12/30/22 [Rx Last Taken Unknown] lactobacillus combination no.4 15 billion cell capsule (Senior Probiotic) 15,000 mmu cells PO DAILY 01/12/23 [History Last Taken Unknown] benzonatate 200 mg capsule 200 mg PO BID-TID PRN cough #60 caps 02/17/23 [Rx Last Taken Unknown] Allergy/AdvReac Type Severity Reaction Status Date / Time amlodipine [From Norvasc] AdvReac Intermediate upset Verified 02/27/23 14:57 stomach amoxicillin [From Augmentin] AdvReac Intermediate Nausea/Vom/ Verified 02/27/23 14:57 Diarrhea clavulanic acid AdvReac Intermediate Nausea/Vom/ Verified 02/27/23 14:57 [From Augmentin] Diarrhea lisinopril AdvReac Intermediate cough Verified 02/27/23 14:57 atorvastatin [From Lipitor] AdvReac Pain in Verified 02/27/23 14:57 joints gemfibrozil [From Lopid] AdvReac Pain in Verified 02/27/23 14:57 joints niacin AdvReac Other Verified 02/27/23 14:57 Family History Grandfather CVA (cerebral vascular accident) Depression Brother COPD (chronic obstructive pulmonary disease) Grandmother Depression Son Arthritis Father Arthritis CAD (coronary artery disease) Mother Hypertension Hyperlipidemia Pacemaker Other Cancer Surgical History eye lesion removal H/O hemorrhoidectomy H/O vasectomy History of coronary artery stent placement (09/07/18) History of left heart catheterization (11/12/18) History of prostate surgery Hx of appendectomy Hx of tonsillectomy S/P umbilical hernia repair, follow-up exam Social History household members: spouse housing: house current occupational status: retired pets and animals: No Smoking Status: Never smoker second hand exposure: No alcohol intake: never substance use type: does not use caffeine: No what type of physical activity do you participate in: walking frequency: 5-6 times per week ROS <ELIZ Garcia - Last Filed: 02/27/23 19:47> ROS ED Constitutional Constitutional ED: Denies chills or fever(s) Cardiovascular Cardiovascular: Denies chest pain or palpitations Respiratory/Chest Respiratory/Chest: Reports cough; Denies dyspnea or dyspnea on exertion Gastrointestinal Gastrointestinal: Denies abdominal pain, nausea or vomiting Genitourinary Genitourinary ED: Reports urinary frequency; Denies dysuria or hematuria Musculoskeletal Musculoskeletal: Denies arthralgias or myalgias Integumentary Denies abscess, Abrasions or rash Neurologic Neurologic: Reports weakness; Denies confusion or dizziness EXAM <ELIZ Garcia - Last Filed: 02/27/23 19:47> Physical Exam Const Vital Signs: 02/27/23 14:55 02/27/23 16:19 02/27/23 17:20 Temperature 98.2 F Temperature Source Temporal Pulse Rate 72 65 Respiratory Rate 16 14 Respiratory Effort Normal Non-Labored Blood Pressure 154/83 H 163/82 H Blood Pressure Mean 106 109 Pulse Ox 94 95 Oxygen Delivery Method Room Air Room Air Positive well nourished, well developed and no apparent distress General Appearance ED: well developed HEENT Reports normocephalic and head/scalp atraumatic Mouth ED: Yes moist mucous membranes normal Eyes PERRL and EOMs intact bilaterally Neck full ROM and supple Chest Wall inspection of chest normal Resp normal respiratory effort and clear to auscultation bilaterally Cardio regular rate and regular rhythm GI soft to palpation, non-tender, non-distended and no masses Back/Spine normal ROM and normal to inspection Extremity normal to inspection and full ROM Neuro oriented x3, CN's II-XII intact bilaterally, moves all extremities, no focal motor deficits and no sensory deficits noted Sensorium / Orientation: awake and alert Psych mental status grossly normal and thought process normal Skin no rashes or lesions noted and no wounds <Dr. Cedric Fonseca MD - Last Filed: 02/27/23 20:11> Physical Exam Const Vital Signs: 02/27/23 14:55 02/27/23 16:19 02/27/23 17:20 Temperature 98.2 F Temperature Source Temporal Pulse Rate 72 65 Respiratory Rate 16 14 Respiratory Effort Normal Non-Labored Blood Pressure 154/83 H 163/82 H Blood Pressure Mean 106 109 Pulse Ox 94 95 Oxygen Delivery Method Room Air Room Air [facility] <ELIZ Garcia - Last Filed: 02/27/23 19:47> [facility] Narrative Medical decision making narrative: Patient presenting today due to concerns for hyponatremia as he has been feeling weak over the past 2 days. He reports that he was here in the ED 12/08/2022 due to rotavirus and was hyponatremic with a sodium level of 131 and had an CHERELLE. He again came in 02/12/2023 due to chest pain and had a sodium level of 127 at that time. He was encouraged to drink less water and drink more Gatorade which he has been doing. His PCP recently discontinued his HCTZ. He has been coughing more recently but is getting over bronchitis, he reports concerns for walking pneumonia. Labs will be obtained to rule out leukocytosis, anemia, electrolyte abnormality. Sodium is 133, much improved from his previous laboratory results. Slightly elevated BUN at 20. He will be given fluids. Chest x-ray will be obtained to rule out infiltrate and urine will be obtained to rule out UA as he has been having increased urinary frequency. Chest x-ray and urine are unremarkable. Overall, patient's work-up is unremarkable. He is instructed to follow-up with his PCP and will be discharged home in stable condition. He is comfortable with plan. I have personally performed a face to face assessment of the patient and have reviewed the SHANNAN Note. I performed a substantive portion of the visit including all aspects of the following. My simmons findings include: History is remarkable for prior history of hyponatremia. Patient presents with 2 days of fatigue and sleeping a lot. He does have a cough. He states his cough is less than it was when he was diagnosed with bronchitis. His cough is nonproductive. He denies fever, chills night sweats. Nuys headache, visual, ocular auditory symptoms. He denies sore throat. He denies chest discomfort. He denies abdominal pain, nausea, vomiting diarrhea. He denies dysuria, frequency, urgency or hematuria. He denies swelling of his lower extremities or orthopnea. Exam is vital signs are marked for slight elevation of blood pressure. He does have a history of hypertension. HEENT exam is remarkable dry mucosa otherwise unremarkable. Heart is regular without murmur, gallop or rub. Rate is normal. Lungs are clear to auscultation with symmetric breath sounds. Abdomen soft nontender. Bowel sounds are diminished. There is no abdominal bruit. Examination lower extremity exam is no pitting edema. He does have a lack of hair which may be suggestive of peripheral arterial disease. He does not gives symptoms of claudication. His informed that he complains of dizziness. When asked to define dizziness he means lightheaded. This does occur when he rises from supine or sitting position. It does not matter if he rises slowly or quickly. Medical Decision Making since clinically he is dehydrated and reports orthostatic symptoms will administer 1 L of normal saline. Because of prior history hyponatremia concern for hyponatremia basic metabolic panel was obtained. CBC was obtained to rule out anemia and assess white count differential. Other additions or changes: [None] Lab Data Attestation: I reviewed the patient's lab results. Lab results narrative: Sodium 133, BUN 20 Labs: Laboratory Results - last 24 hr 02/27/23 02/27/23 02/27/23 15:56 15:56 17:03 WBC 5.8 RBC 4.94 Hgb 16.4 Hct 48.9 MCV 99.0 H MCH 33.2 H MCHC 33.5 RDW Std Deviation 46.5 H RDW Coeff of Beni 12.6 Plt Count 260 MPV 8.2 Immature Gran % (Auto) 0.200 Neut % (Auto) 74.6 H Lymph % (Auto) 10.3 L Irwin % (Auto) 12.0 H Eos % (Auto) 2.4 Baso % (Auto) 0.5 Absolute Neuts (auto) 4.3 Absolute Lymphs (auto) 0.60 L Nucleated RBC % 0 Differential Comment SCANNED Sodium 133 L Potassium 4.8 Chloride 102 Carbon Dioxide 26.0 Anion Gap 5 BUN 20 H Creatinine 1.13 Estim Creat Clear Calc 49.60 Est GFR (MDRD) Af Amer 80 Est GFR (MDRD) Non-Af 66 BUN/Creatinine Ratio 17.7 Glucose 89 Calcium 8.9 Urine Color Yellow Urine Clarity Clear Urine pH 6.0 Ur Specific [place] 1.020 Urine Protein 15 H Urine Glucose (UA) Normal Urine Ketones 5 H Urine Occult Blood 10 H Urine Nitrite Negative Urine Bilirubin Negative Urine Urobilinogen 1 H Ur Leukocyte Esterase 25 H Urine RBC 0 SEEN Urine WBC 0 SEEN Ur Squamous Epith Cells 0 SEEN Urine Bacteria 0 SEEN Urine Mucus 0 SEEN Radiography X-Ray: Read by ED Physician and Read by Radiologist Diagnostic Testing: Clinical Impression(s) from Imaging Studies Chest X-Ray 02/27/23 17:20 IMPRESSION: There are no acute findings. Electronically Signed: Maco Cox MD at 17:38 EDT , <Dr. Cedric Fonseca MD - Last Filed: 02/27/23 20:11> MDM MDM Narrative Medical decision making narrative: Patient presenting today due to concerns for hyponatremia as he has been feeling weak over the past 2 days. He reports that he was here in the ED 12/08/2022 due to rotavirus and was hyponatremic with a sodium level of 131 and had an CHERELLE. He again came in 02/12/2023 due to chest pain and had a sodium level of 127 at that time. He was encouraged to drink less water and drink more Gatorade which he has been doing. His PCP recently discontinued his HCTZ. He has been coughing more recently but is getting over bronchitis, he reports concerns for walking pneumonia. Labs will be obtained to rule out leukocytosis, anemia, electrolyte abnormality. Chest x-ray will be obtained to rule out infiltrate and urine will be obtained to rule out UA as he has been having increased urinary frequency. He will be given IV fluids. I have personally performed a face to face assessment of the patient and have reviewed the SHANNAN Note. I performed a substantive portion of the visit including all aspects of the following. My simmons findings include: History is remarkable for prior history of hyponatremia. Patient presents with 2 days of fatigue and sleeping a lot. He does have a cough. He states his cough is less than it was when he was diagnosed with bronchitis. His cough is nonproductive. He denies fever, chills night sweats. Nuys headache, visual, ocular auditory symptoms. He denies sore throat. He denies chest discomfort. He denies abdominal pain, nausea, vomiting diarrhea. He denies dysuria, frequency, urgency or hematuria. He denies swelling of his lower extremities or orthopnea. Exam is vital signs are marked for slight elevation of blood pressure. He does have a history of hypertension. HEENT exam is remarkable dry mucosa otherwise unremarkable. Heart is regular without murmur, gallop or rub. Rate is normal. Lungs are clear to auscultation with symmetric breath sounds. Abdomen soft nontender. Bowel sounds are diminished. There is no abdominal bruit. Examination lower extremity exam is no pitting edema. He does have a lack of hair which may be suggestive of peripheral arterial disease. He does not gives symptoms of claudication. His informed that he complains of dizziness. When asked to define dizziness he means lightheaded. This does occur when he rises from supine or sitting position. It does not matter if he rises slowly or quickly. Medical Decision Making since clinically he is dehydrated and reports orthostatic symptoms will administer 1 L of normal saline. Because of prior history hyponatremia concern for hyponatremia basic metabolic panel was obtained. CBC was obtained to rule out anemia and assess white count differential. Other additions or changes: [None] Lab Data Lab results narrative: Sodium 133, BUN 20 See if she is unremarkable. BUN is slightly elevated compared to prior however his BUN to creatinine ratio is less than 20-1. Labs: Laboratory Results - last 24 hr 02/27/23 02/27/23 02/27/23 15:56 15:56 17:03 WBC 5.8 RBC 4.94 Hgb 16.4 Hct 48.9 MCV 99.0 H MCH 33.2 H MCHC 33.5 RDW Std Deviation 46.5 H RDW Coeff of Beni 12.6 Plt Count 260 MPV 8.2 Immature Gran % (Auto) 0.200 Neut % (Auto) 74.6 H Lymph % (Auto) 10.3 L Irwin % (Auto) 12.0 H Eos % (Auto) 2.4 Baso % (Auto) 0.5 Absolute Neuts (auto) 4.3 Absolute Lymphs (auto) 0.60 L Nucleated RBC % 0 Differential Comment SCANNED Sodium 133 L Potassium 4.8 Chloride 102 Carbon Dioxide 26.0 Anion Gap 5 BUN 20 H Creatinine 1.13 Estim Creat Clear Calc 49.60 Est GFR (MDRD) Af Amer 80 Est GFR (MDRD) Non-Af 66 BUN/Creatinine Ratio 17.7 Glucose 89 Calcium 8.9 Urine Color Yellow Urine Clarity Clear Urine pH 6.0 Ur Specific [place] 1.020 Urine Protein 15 H Urine Glucose (UA) Normal Urine Ketones 5 H Urine Occult Blood 10 H Urine Nitrite Negative Urine Bilirubin Negative Urine Urobilinogen 1 H Ur Leukocyte Esterase 25 H Urine RBC 0 SEEN Urine WBC 0 SEEN Ur Squamous Epith Cells 0 SEEN Urine Bacteria 0 SEEN Urine Mucus 0 SEEN Radiography Diagnostic Testing: Clinical Impression(s) from Imaging Studies Chest X-Ray 02/27/23 17:20 IMPRESSION: There are no acute findings. Electronically Signed: Maco Cox MD at 17:38 EDT , Discharge Plan Triage Chief Complaint: Weakness ED Midlevel Provider: Sunshine Iyer ED Provider: Cedric Fonseca Dx/Rx/DC Orders Clinical Impression: Generalized weakness, Cough, HTN (hypertension), Hypothyroidism, EH (obstructive sleep apnea), Hyperlipidemia, Chronic hyponatremia Instructions: ED Weakness (Uncertain Cause) Prescriptions: No Action Ultra CoQ10 75 mg capsule 30 mg PO DAILY famotidine [Pepcid] 20 mg tablet 20 mg PO BID testosterone cypionate 100 mg/mL oil 100 mg IM Q2W Qty: 10 triamcinolone acetonide 55 mcg aerosol,spray 2 spray INTRANASAL DAILY PRN (Reason: NOSE BLEEDS) Rx Instructions: administer into each nostril diclofenac sodium 1 % gel 2 g topical PRN PRN (Reason: Pain) Rx Instructions: apply to single elbow, wrist or hand; for hand includes palm/fingers/back of hand nitroglycerin 0.4 mg tablet, sublingual 0.4 mg sublingual Q5M PRN (Reason: chest pain) Qty: 25 3RF Rx Instructions: do not exceed 3 doses per episode cinnamon bark [Cinnamon] 500 mg capsule 1,000 mg PO DAILY apple cider vinegar 600 mg capsule 600 mg PO DAILY [id number] 600 mg calcium- 800 unit-50 mg tablet 1 tab PO DAILY Senior Probiotic 15 billion cell capsule 15,000 mmu cells PO DAILY Rx Instructions: administer with a meal ipratropium bromide 42 mcg (0.06 %) spray,non-aerosol 2 spray intranasal DAILY PRN (Reason: Congestion) Label Comments: [place] 2 spray into both nostrils once a day as needed benzonatate 200 mg capsule 200 mg PO BID-TID PRN (Reason: cough) Qty: 60 0RF aspirin 81 MG tablet,chewable 81 mg PO QHS Label Comments: preventative for stroke heart WAS TOLD TO STOP FOR 08/20/18 for endo on 08/24/18 Rx Instructions: Takes in Evening multivitamin with folic acid 1 TABLET tablet 1 tab PO DAILY Label Comments: suppliment Rx Instructions: Takes in the evening cyanocobalamin (vitamin B-12) 500 mcg tablet 250 mcg PO DAILY@0800 Label Comments: suppliment bilberry 100 mg capsule 1,000 mg PO QHS wheat dextrin 1 EACH powder in packet 1 ea PO DAILY isosorbide mononitrate 60 mg tablet extended release 24 hr 120 mg PO BID losartan 50 mg tablet 50 mg PO BID nifedipine 30 mg tablet extended release 30 mg PO DAILY gabapentin 300 mg Tablet 300 mg PO 0200 gabapentin 600 mg Tablet 600 mg PO DINNER labetalol 200 mg tablet 200 mg PO BID Qty: 180 4RF levothyroxine 112 mcg tablet 112 mcg PO QDAY Qty: 90 2RF sertraline 25 mg tablet 25 mg PO DAILY Qty: 90 1RF clopidogrel 75 mg tablet 75 mg PO DAILY Qty: 90 3RF rosuvastatin 5 mg tablet 5 mg PO QHS Qty: 90 3RF Primary Care Provider: Tania Jackson Referrals: Tania Jackson MD [Primary Care Provider] - 3-5 Days Activity Restrictions/Additional Instructions: Please follow-up with your PCP and return for any worsening of your symptoms. Disposition Disposition: Home, Self Care Discharge Date/Time: 02/27/23 19:15
[2023-02-27 17:02] LABS: Differential Comment SCANNED
[2023-02-27 17:20] VITALS: BP 163/82; PULSE 65; RESP 14; O2SAT 95
--- NOTE | 2023-02-27 17:20 | RAD_ITS ---
STUDY: XR Chest 2 Views 02/27/2023 5:21 PM REASON FOR EXAM: Male, 82 years old. CHEST PAIN cough COMPARISON: 5.. TECHNIQUE: XR Chest 2 Views FINDINGS: There is no demonstrated pleural abnormality. Normal heart size. Normal mediastinum. Normal tati. Prominent appearing increased interstitial lung markings. Normal visualized pulmonary arteries. There is atherosclerotic calcification of the aortic arch with tortuosity. There are diffuse degenerative changes of the visualized thoracic spine. There is degenerative osteoarthritis of the bilateral shoulders. There is no demonstrated abnormality of the visualized soft tissue structures of the upper abdomen. RAD/Chest PA and Lateral IMPRESSION: There are no acute findings. Electronically Signed: Maco Cox MD at 17:38 EDT ,
[2023-02-27 17:24] LABS: Bacteria 0 SEEN /hpf (None Seen); Mucous, Urine 0 SEEN /hpf (<or=2+); Red Blood Cells-Urine 0 SEEN /hpf (0-5); Squamous Epithelial Cells - UA 0 SEEN /hpf (0-5); White Blood Cells 0 SEEN /hpf (0-5)
[2023-02-27 17:35] LABS: Color, Urine Yellow (Yellow); Glucose, Dipstick Normal (Normal); Ketone-Dipstick 5 mg/dl (Negative); Leukocyte Esterase-Dipstick 25 /ul (Negative); Nitrite-Dipstick Negative (Negative); Occult Blood-Urine 10 /ul (Negative); Protein-Dipstick 15 mg/dl (Negative); Urine Bilirubin Dipstick Negative (Negative); Urine Clarity Clear (Clear); Urine Urobilinogen 1 mg/dl (Normal)
== END 2023-02-27 19:15 | disposition home or self-care (01) ==
PROVIDERS: Physician Assistant; Emergency Provider Emergency Medicine; PCP Internal Medicine; Referring Provider Emergency Medicine; Visit Provider Emergency Medicine
DX: R53.1 Weakness (principal); E03.9 Hypothyroidism, unspecified; E78.5 Hyperlipidemia, unspecified; E87.1 Hypo-osmolality and hyponatremia; Z95.5 Presence of coronary angioplasty implant and graft; I10 Essential (primary) hypertension; G47.33 Obstructive sleep apnea (adult) (pediatric); I25.10 Atherosclerotic heart disease of native coronary artery without angina pectoris; R05.9 Cough, unspecified; Z79.82 Long term (current) use of aspirin; Z79.899 Other long term (current) drug therapy; F41.9 Anxiety disorder, unspecified; Z99.89 Dependence on other enabling machines and devices; Z79.02 Long term (current) use of antithrombotics/antiplatelets; Z90.49 Acquired absence of other specified parts of digestive tract
CPT/HCPCS: 71046; 80048; 81001; 85025; 99283

== ENCOUNTER → 2023-03-06 | Outpatient (CLI) | payer MEDICARE, OTHER, SELFPAY ==
[2022-03-26 12:12] VITALS: BMI 28.0
[2023-03-06 12:31] LABS: Thyroid Stim Hormone (TSH) 1.31 uIU/mL (0.358-3.74)
[2023-03-06 12:35] LABS: Vitamin B12 1904 pg/mL (211-911); Vitamin D,25 Hydroxy 48.7 ng/mL
== END | disposition home or self-care (01) ==
LOC: BIMLAB 08:58
PROVIDERS: PCP Internal Medicine; Referring Provider Internal Medicine; Visit Provider Internal Medicine
DX: E03.9 Hypothyroidism, unspecified (principal); D75.89 Other specified diseases of blood and blood-forming organs; E55.9 Vitamin D deficiency, unspecified
CPT/HCPCS: 36415; 82306; 82607; 84443

== ENCOUNTER → 2023-06-11 | Outpatient (CLI) | payer MEDICARE, OTHER, SELFPAY ==
[2022-03-26 12:12] VITALS: BMI 28.0
[2023-06-11 17:37] LABS: PSA,Total - Annual Screen 3.25 ng/mL (0.00-4.00)
== END | disposition home or self-care (01) ==
LOC: LAB 16:28
PROVIDERS: PCP Internal Medicine; Referring Provider Urology; Visit Provider Urology
DX: Z12.5 Encounter for screening for malignant neoplasm of prostate (principal)
CPT/HCPCS: 36415; 84153; G0103

== ENCOUNTER → 2023-07-08 | Outpatient (CLI) | payer MEDICARE, OTHER, SELFPAY ==
[2022-03-26 12:12] VITALS: BMI 28.0
[2023-07-08 17:37] LABS: ALB/GLOB Ratio 1.1 RATIO (0.9-2.4); AST(SGOT) 21 U/L (15-37); Alanine Aminotransfer ALT/SGPT 34 U/L (16-61); Albumin, Serum 3.4 g/dL (3.2-5.0); Alkaline Phosphatase 81 U/L (45-117); Anion Gap 3 (5-15); BUN 24 mg/dL (7-18); BUN/Creat Ratio 21.6 RATIO (10-20); Calcium,Total 8.6 mg/dL (8.5-10.1); Chloride 105 mmol/L (98-107); Creatinine, Serum 1.11 mg/dL (0.70-1.30); EST Glomerular Filtration Rate 68 mL/min (>60); Est Glom Filt Rate - Afr Amer 82 mL/min (>60); Glucose 99 mg/dL (74-106); Potassium 4.2 mmol/L (3.5-5.1); Protein, Total 6.4 g/dL (6.4-8.2); Sodium Level 138 mmol/L (136-145); Thyroid Stim Hormone (TSH) 0.72 uIU/mL (0.358-3.74)
== END | disposition home or self-care (01) ==
LOC: BIMLAB 14:35
PROVIDERS: PCP Internal Medicine; Referring Provider Internal Medicine; Visit Provider Internal Medicine
DX: I10 Essential (primary) hypertension (principal); E03.9 Hypothyroidism, unspecified
CPT/HCPCS: 36415; 80053; 84443

== ENCOUNTER → 2023-07-22 | Outpatient (CLI) | payer MEDICARE, OTHER, SELFPAY ==
[2022-03-26 12:12] VITALS: BMI 28.0
[2023-07-22 11:21] LABS: AST(SGOT) 22 U/L (15-37); Alanine Aminotransfer ALT/SGPT 31 U/L (16-61); Albumin, Serum 3.5 g/dL (3.2-5.0); Alkaline Phosphatase 87 U/L (45-117); Bilirubin, Direct 0.25 mg/dL (0.00-0.30); Cholesterol 150 mg/dL (200); Globulin 3.5 g/dL (2.2-4.2); High Density Lipoprotein 37 mg/dL; Triglycerides 188 mg/dL; Very Low Density Lipoprotein 38 mg/dL (5-40)
== END | disposition home or self-care (01) ==
PROVIDERS: PCP Internal Medicine; Referring Provider Nurse Practitioner Gerontology; Visit Provider Nurse Practitioner Gerontology
DX: E78.00 Pure hypercholesterolemia, unspecified (principal)
CPT/HCPCS: 36415; 80061; 80076

== ENCOUNTER → 2023-12-16 | Outpatient (CLI) | payer MEDICARE, OTHER, SELFPAY ==
[2022-03-26 12:12] VITALS: BMI 28.0
[2023-12-16 09:45] LABS: Bacteria 0 SEEN /hpf (None Seen); Mucous, Urine 0 SEEN /hpf (<or=2+); Red Blood Cells-Urine 0 SEEN /hpf (0-5); White Blood Cells 0 SEEN /hpf (0-5)
[2023-12-16 12:11] LABS: Absolute Lymphocyte Count 0.71 X10^3/uL (0.83-4.51); Absolute Neutrophil Count 4.8 X10^3/uL (2.0-7.7); Basophil# 0.03 X10^3/uL; Basophil% 0.5 % (0-1); Eosinophil# 0.24 X10^3/uL; Eosinophils% 3.7 % (0-5); Hematocrit 51.2 % (40-54); Hemoglobin 16.8 g/dL (13.0-16.5); Lymphocyte # 0.71 X10^3/ul (0.83-4.51); Mean Corp Hgb Conc 32.8 g/dL (32-36); Mean Corpuscular Hgb 32.1 pg (27.0-32.0); Mean Corpuscular Volume 97.7 fL (80-94); Mean Platelet Vol. 9.3 fl (6.2-12.0); Monocyte# 0.67 X10^3/uL; Monocyte% 10.4 % (0-10); NRBC Flagged by Analyzer 0 % (0-5); Neutrophil % 74.1 % (47-70); Platelet Count 276 K/mm3 (150-450); RBC Distribution Width CV 13.3 % (11.6-14.6); RBC Distribution Width SD 48.3 fl (35.1-43.9); Red Blood Count 5.24 M/mm3 (4.6-6.2); White Blood Count 6.5 K/mm3 (4.4-11.0)
[2023-12-16 12:17] LABS: Color, Urine Yellow (Yellow); Glucose, Dipstick Normal (Normal); Ketone-Dipstick Negative (Negative); Leukocyte Esterase-Dipstick Negative /ul (Negative); Nitrite-Dipstick Negative (Negative); Occult Blood-Urine Negative /ul (Negative); Protein-Dipstick Negative (Negative); Urine Bilirubin Dipstick Negative (Negative); Urine Clarity Sl. Cloudy (Clear); Urine Urobilinogen Normal (Normal)
[2023-12-16 12:28] LABS: Squamous Epithelial Cells - UA 0-5 SEEN /hpf (0-5)
[2023-12-16 13:40] LABS: ALB/GLOB Ratio 1.2 RATIO (0.9-2.4); AST(SGOT) 28 U/L (15-37); Alanine Aminotransfer ALT/SGPT 41 U/L (16-61); Albumin, Serum 3.7 g/dL (3.2-5.0); Alkaline Phosphatase 86 U/L (45-117); Anion Gap 6 (5-15); BUN 23 mg/dL (7-18); BUN/Creat Ratio 19.7 RATIO (10-20); CRP < 2.90 mg/L (0.0-3.0); Chloride 104 mmol/L (98-107); Creatinine, Serum 1.17 mg/dL (0.70-1.30); EST Glomerular Filtration Rate 63 mL/min (>60); Est Glom Filt Rate - Afr Amer 77 mL/min (>60); Globulin 3.1 g/dL (2.2-4.2); Glucose 96 mg/dL (74-106); Potassium 4.2 mmol/L (3.5-5.1); Protein, Total 6.8 g/dL (6.4-8.2); Sodium Level 137 mmol/L (136-145); T4 Free Direct 1.27 ng/dL (0.76-1.46); Thyroid Stim Hormone (TSH) 1.17 uIU/mL (0.358-3.74)
[2023-12-21 13:07] LABS: Testosterone, % Free 2.68 % (1.50-4.20); Testosterone, Free 8.23 ng/dL (5.00-21.00); Testosterone, Total 307 ng/dL (264-916)
== END | disposition home or self-care (01) ==
LOC: BIMLAB 09:32
PROVIDERS: PCP Internal Medicine; Referring Provider Nurse Practitioner; Visit Provider Nurse Practitioner
DX: J20.9 Acute bronchitis, unspecified (principal); R61 Generalized hyperhidrosis; I10 Essential (primary) hypertension
CPT/HCPCS: 36415; 80053; 81001; 84402; 84403; 84439; 84443; 85025; 86140

== ENCOUNTER → 2024-01-11 | Outpatient (CLI) | payer MEDICARE, OTHER, SELFPAY ==
[2022-03-26 12:12] VITALS: BMI 28.0
[2024-01-11 12:57] LABS: AST(SGOT) 23 U/L (15-37); Alanine Aminotransfer ALT/SGPT 40 U/L (16-61); Albumin, Serum 3.5 g/dL (3.2-5.0); Alkaline Phosphatase 110 U/L (45-117); Bilirubin, Direct 0.31 mg/dL (0.00-0.30); Cholesterol 140 mg/dL (200); Globulin 3.2 g/dL (2.2-4.2); High Density Lipoprotein 37 mg/dL; Protein, Total 6.7 g/dL (6.4-8.2); Triglycerides 215 mg/dL; Very Low Density Lipoprotein 43 mg/dL (5-40)
== END | disposition home or self-care (01) ==
PROVIDERS: PCP Internal Medicine; Referring Provider Nurse Practitioner Gerontology; Visit Provider Nurse Practitioner Gerontology
DX: E78.00 Pure hypercholesterolemia, unspecified (principal)
CPT/HCPCS: 36415; 80061; 80076

== ENCOUNTER → 2024-01-18 | Outpatient (CLI) | payer MEDICARE, OTHER, SELFPAY ==
[2022-03-26 12:12] VITALS: BMI 28.0
--- NOTE | 2024-01-18 12:56 | CT_ITS ---
STUDY: CT CHEST, ABDOMEN T PELVIS WITH CONTRAST REASON FOR EXAM: Male, 83 years old. POLYCYTHEMIA-NIGHT SWEATS RADIATION DOSAGE (If Supplied By Facility): CTDIvol = ( 21.87 ) mGy, DLP = ( 2281.43 ) mGycm TECHNIQUE: Transaxial imaging was performed following intravenous administration of IV 100mL Isovue-300. Multiplanar coronal and sagittal images were reformatted. Individualized dose optimization techniques were used for this CT. COMPARISON: No relevant priors. FINDINGS: CHEST Minimal increased markings at the lung bases suggestive of linear atelectasis and/or scarring. There is no demonstrated pleural abnormality. There are calcifications of the coronary arteries. Normal mediastinum. Normal hilar regions. Normal unenhanced pulmonary arteries. There is atherosclerotic calcification of the aortic arch . There are multi-level degenerative changes of the thoracic spine. ABDOMEN Normal liver. Normal gallbladder and extrahepatic biliary system. Normal spleen. Normal pancreas. Normal bilateral adrenal glands. Stable small right renal cyst. There are stable multiple left renal cysts. The largest measures 6 cm x 5.1 cm. Normal visualized stomach. Normal small intestine. There are multiple colonic diverticula consistent with diverticulosis. The appendix is visualized and appears normal. There is scattered atherosclerotic calcification of the abdominal aorta and its major visceral branches, without a demonstrated aneurysm. Normal inferior vena cava. Normal retroperitoneum. Normal abdominal wall. This space narrowing and degeneration at the L5-S1 level. Straightening of the normal lumbar lordosis. Stable small sclerotic focus in the body of the L3 vertebrae suggestive of a bone island. PELVIS Normal urinary bladder. There is heterogeneous enlargement of the prostate. Findings suggestive of prior TURP. The prostate measures 3.7 cm x 4.5 cm. Normal visualized small intestine. Normal visualized colon. There is no pelvic fluid. There is no pelvic lymphadenopathy or mass lesion. CT/CT Chest, Abd, Pel w/Contrast IMPRESSION: Sigmoid diverticulosis. Stable bilateral renal cysts more prominent in the left kidney. Mild linear atelectasis and/or scarring at the lung bases. Electronically Signed: Narciso Zamarripa MD at 15:08 EDT ,
--- NOTE | 2024-01-18 12:56 | CT_ITS ---
STUDY: CT BRAIN WITH AND WITHOUT CONTRAST REASON FOR EXAM: Male, 83 years old. POLYCYTHEMIA-NIGHT SWEATS-HEADACHES. History of prior cochlear implant. RADIATION DOSAGE (If Supplied By Facility): CTDIvol = ( 44.99 ) mGy, DLP = ( 1586.03 ) mGycm TECHNIQUE: Transaxial CT imaging of the brain was performed pre and post contrast administration. The examination was performed with intravenous administration of IV 100mL Isovue-300. Individualized dose optimization techniques were used for this CT. COMPARISON: None. FINDINGS: Normal soft tissue structures. Normal calvarium. Artifacts from a left-sided cochlear implant causes limited visualization of the left posterior aspect of the brain. There is mild cerebral atrophy with widening of the extra-axial spaces and ventricular dilatation. Normal white matter tracts of the cerebral hemispheres. Normal basal ganglia and thalami. Normal brainstem. Normal cerebellum. There is no intracranial hemorrhage. There are no findings of an acute ischemic infarction. Normal visualized paranasal sinuses. CT/Brain/Head W/WO Contrast IMPRESSION: Chronic involutional changes of the brain. Left-sided cochlear implant. Electronically Signed: Narciso Zamarripa MD at 14:57 EDT ,
== END | disposition home or self-care (01) ==
LOC: CT 12:55
PROVIDERS: PCP Internal Medicine; Referring Provider Internal Medicine Medical Oncology; Visit Provider Internal Medicine Medical Oncology
DX: D75.1 Secondary polycythemia (principal); R61 Generalized hyperhidrosis; R51.9 Headache, unspecified; R17 Unspecified jaundice
CPT/HCPCS: 70470; 71260; 74177; Q9967

== ENCOUNTER → 2024-01-25 | Outpatient (CLI) | payer MEDICARE, OTHER, SELFPAY ==
[2022-03-26 12:12] VITALS: BMI 28.0
--- NOTE | 2024-01-25 09:18 | US_ITS ---
STUDY: ABDOMINAL ULTRASOUND - RIGHT UPPER QUADRANT; ELASTOGRAPHY REASON FOR VISIT: Male, 83 years old. Abnormal liver function tests. TECHNIQUE: Ultrasound evaluation of the right upper quadrant was performed with real-time and static rico-scale imaging. Point quantification shear wave elastography was performed (Opternative). TECHNICAL QUALITY: Adequate. COMPARISON: Comparison is made with prior study dated December 27, 2012. FINDINGS: Liver: The liver measures 15.1 cm. There is increased echogenicity consistent with fatty infiltration. The bile ducts are within normal limits. There is hepatic color flow. The direction of portal flow is hepatopetal. There is no demonstrated mass lesion. Median liver stiffness measured 5.4 kPa. Gallbladder: Normal distended gallbladder. The gallbladder wall measures 3 mm. There is a negative sonographic Tineo''s sign. There is no pericholecystic fluid. There are no gallstones. Common Bile Duct (C.B.D.): The common bile duct measures 6 mm. Pancreas: There is normal echogenicity of the visualized pancreas. There is no demonstrated pancreatic mass or cyst. Right Kidney: Normal size of the right kidney. The right kidney measures 10.4 cm x 5.9 cm x 5.2 cm. Normal renal cortex. The right cortex measures 1.1 cm. There are 2 renal cysts. The larger cyst measures 1.6 cm x 1.6 times by 1.3 cm. There is no right hydronephrosis. US/ABD Limited w/ Elastography IMPRESSION: 1. Liver stiffness measures 5.4 kPa compatible with F0-F1 (Normal to mild liver fibrosis) Metavir score. Electronically Signed: Narciso Zamarripa MD at 8:51 EDT ,
== END | disposition home or self-care (01) ==
LOC: US 09:17
PROVIDERS: PCP Internal Medicine; Referring Provider Internal Medicine Medical Oncology; Visit Provider Internal Medicine Medical Oncology
DX: E61.1 Iron deficiency (principal); R79.89 Other specified abnormal findings of blood chemistry
CPT/HCPCS: 76705; 76981

== ENCOUNTER → 2024-02-05 | Outpatient (CLI) | payer MEDICARE, OTHER, SELFPAY ==
[2022-03-26 12:12] VITALS: BMI 28.0
[2024-02-05 14:08] LABS: Bacteria 0 SEEN /hpf (None Seen); Mucous, Urine 0 SEEN /hpf (<or=2+); Red Blood Cells-Urine 0 SEEN /hpf (0-5)
[2024-02-05 15:38] LABS: Color, Urine Yellow (Yellow); Glucose, Dipstick Normal (Normal); Ketone-Dipstick 5 mg/dl (Negative); Leukocyte Esterase-Dipstick 25 /ul (Negative); Nitrite-Dipstick Negative (Negative); Occult Blood-Urine Negative /ul (Negative); Protein-Dipstick 15 mg/dl (Negative); Urine Bilirubin Dipstick Negative (Negative); Urine Clarity Sl. Cloudy (Clear); Urine Urobilinogen 1 mg/dl (Normal)
[2024-02-05 15:56] LABS: Squamous Epithelial Cells - UA 0-5 SEEN /hpf (0-5); White Blood Cells 0-5 SEEN /hpf (0-5)
== END | disposition home or self-care (01) ==
LOC: LAB 14:04
PROVIDERS: PCP Internal Medicine; Referring Provider Surgery; Visit Provider Surgery
DX: R61 Generalized hyperhidrosis (principal); R10.9 Unspecified abdominal pain
CPT/HCPCS: 81001

== ENCOUNTER 2024-02-16 05:25 | Day surgery (SDC) | payer MEDICARE, OTHER, SELFPAY ==
[2022-03-26 12:12] VITALS: BMI 28.0
[2024-02-16] VITALS (7 sets, daily range): BP systolic 72–113; BP diastolic 47–76; PULSE 65–74; RESP 14–16; TEMP 36.2–36.6; O2SAT 93–97; BMI 27.9
--- NOTE | 2024-02-16 05:47 | HP.PCM_ITS ---
History and Physical Date of Admission: 02/16/[address] Duane Cummings MD on 02/05/24 at 1435 Intake Chief Complaint: iron deficiency anemia Allergies amlodipine (From Norvasc) Adverse Reaction (Intermediate, Verified 02/05/24 13:23) upset stomachamoxicillin (From Augmentin) Adverse Reaction (Intermediate, Verified 02/05/24 13:23) Nausea/Vom/Diarrheaclavulanic acid (From Augmentin) Adverse Reaction (Intermediate, Verified 02/05/24 13:23) Nausea/Vom/Diarrhealisinopril Adverse Reaction (Intermediate, Verified 02/05/24 13:23) coughatorvastatin (From Lipitor) Adverse Reaction (Verified 02/05/24 13:23) Pain in jointsgemfibrozil (From Lopid) Adverse Reaction (Verified 02/05/24 13:23) Pain in jointsniacin Adverse Reaction (Verified 02/05/24 13:23) Other Medications ?Medication ?Instructions ?Recorded ?Confirmed ?Type aspirin 81 mg chewable tablet 81 mg PO QHS Heart 03/20/14 02/05/24 History multivitamin with folic acid 400 1 tab PO DAILY Vitamin 03/20/14 02/05/24 History mcg tablet coenzyme Q10 75 mg capsule (Ultra 30 mg PO DAILY pain 06/01/19 02/05/24 History CoQ10) famotidine 20 mg tablet (Pepcid) 20 mg PO BID congestion 08/22/19 02/05/24 History wheat dextrin 3 gram/3.5 gram oral 1 ea PO DAILY supplement 09/26/19 02/05/24 History powder packet diclofenac sodium 1 % topical gel 2 g topical PRN PRN Pain 07/30/21 02/05/24 History testosterone cypionate 100 mg/mL 100 mg IM Q2W hormone #10 mL 10/29/21 02/05/24 History intramuscular oil apple cider vinegar 600 mg capsule 600 mg PO DAILY paiin 02/11/22 02/05/24 History cinnamon bark 500 mg capsule 1,000 mg PO DAILY pain 02/11/22 02/05/24 History (Cinnamon) bilberry 100 mg capsule 1,000 mg PO QHS Eye function 10/31/22 02/05/24 History ipratropium bromide 42 mcg (0.06 2 spray intranasal DAILY PRN 10/31/22 02/05/24 History %) nasal spray Congestion clopidogrel 75 mg tablet 75 mg PO DAILY Heart #90 tabs 12/29/22 02/05/24 Rx lactobacillus combination no.4 15 15,000 mmu cells PO DAILY 01/12/23 02/05/24 History billion cell capsule (Senior Probiotic) labetalol 200 mg tablet 200 mg PO BID Blood pressure #180 03/26/23 02/05/24 Rx tabs isosorbide mononitrate 120 mg 120 mg PO DAILY blood pressure #90 05/19/23 02/05/24 Rx tablet,extended release 24 hr tabs ketoconazole 2 % shampoo topical 07/08/23 02/05/24 History gabapentin 300 mg capsule 300 mg PO DAILY #90 caps 09/01/23 02/05/24 Rx losartan 50 mg tablet 50 mg PO BID blood pressure #180 09/01/23 02/05/24 Rx tabs nitroglycerin 0.4 mg sublingual 0.4 mg sublingual Q5M PRN chest 09/01/23 02/05/24 Rx tablet pain #25 tabs gabapentin 600 mg tablet 600 mg PO BID #180 tabs 09/07/23 02/05/24 Rx levothyroxine 112 mcg tablet 112 mcg PO QDAY Thyroid #90 tabs 12/14/23 02/05/24 Rx rosuvastatin 5 mg tablet 5 mg PO QHS cholesterol #90 tabs 12/14/23 02/05/24 Rx doxazosin 2 mg tablet 2 mg PO QHS #30 tabs 12/18/23 02/05/24 Rx Assessment and Plan Assessment and Plan (1) Iron deficiency: Status: Acute Comment: FOBT positive on 01/21/2024 (2) Polycythemia: Status: Chronic Comment: CT on 01/18/2024 shows no Malignancy. Hgb was normal on 01/05/2024. Orders: Orders Urinalysis, Complete Today R10.9 - Unspecified abdominal pain, R61 - Generalized hyperhidrosis Plan Addendum I have records from August 24, 2018 at a point where I did a previous colonoscopy on him. This demonstrates hemorrhoids. Diverticular the sigmoid and descending colon. Evidence of a prior end-to-end ileocolonic anastomosis at the hepatic flexure. Very healthy in appearance. No acute findings. Duane Cummings M.D., F.A.C.S. 02/05/24 1435 <Electronically signed by Duane Cmumings MD> Date Duane Cummings MD cc: Dr. Tania Jackson MD; Dr. Sean Campbell MD ~* Signed Intake Vital Signs 01/27/2413:42 02/04/2413:11 Height 5 ft 8 in 5 ft 8 in Weight: 188 lb 6 oz 190 lb BMI 28.6 28.8 BP 106/60 129/69 H Blood Pressure Location Lt brachial Rt brachial Position Sitting Sitting Respiration 18 16 Pulse 81 Pulse Source Monitor Temp 98.6 F Pulse Oximetry (%) 93 Oxygen Delivery Method room air Intake Visit Reasons: IRON DEFICENCY & POSITIVE FOBT Chief Complaint: iron deficiency anemia Maintenance Analyst Required: No Is patient in pain?: Yes Allergies amlodipine (From Norvasc) Adverse Reaction (Intermediate, Verified 02/05/24 13:23) upset stomachamoxicillin (From Augmentin) Adverse Reaction (Intermediate, Verified 02/05/24 13:23) Nausea/Vom/Diarrheaclavulanic acid (From Augmentin) Adverse Reaction (Intermediate, Verified 02/05/24 13:23) Nausea/Vom/Diarrhealisinopril Adverse Reaction (Intermediate, Verified 02/05/24 13:23) coughatorvastatin (From Lipitor) Adverse Reaction (Verified 02/05/24 13:23) Pain in jointsgemfibrozil (From Lopid) Adverse Reaction (Verified 02/05/24 13:23) Pain in jointsniacin Adverse Reaction (Verified 02/05/24 13:23) Other Medications ?Medication ?Instructions ?Recorded ?Confirmed ?Type aspirin 81 mg chewable tablet 81 mg PO QHS Heart 03/20/14 02/05/24 History multivitamin with folic acid 400 1 tab PO DAILY Vitamin 03/20/14 02/05/24 History mcg tablet coenzyme Q10 75 mg capsule (Ultra 30 mg PO DAILY pain 06/01/19 02/05/24 History CoQ10) famotidine 20 mg tablet (Pepcid) 20 mg PO BID congestion 08/22/19 02/05/24 History wheat dextrin 3 gram/3.5 gram oral 1 ea PO DAILY supplement 09/26/19 02/05/24 History powder packet diclofenac sodium 1 % topical gel 2 g topical PRN PRN Pain 07/30/21 02/05/24 History testosterone cypionate 100 mg/mL 100 mg IM Q2W hormone #10 mL 10/29/21 02/05/24 History intramuscular oil apple cider vinegar 600 mg capsule 600 mg PO DAILY paiin 02/11/22 02/05/24 History cinnamon bark 500 mg capsule 1,000 mg PO DAILY pain 02/11/22 02/05/24 History (Cinnamon) bilberry 100 mg capsule 1,000 mg PO QHS Eye function 10/31/22 02/05/24 History ipratropium bromide 42 mcg (0.06 2 spray intranasal DAILY PRN 10/31/22 02/05/24 History %) nasal spray Congestion clopidogrel 75 mg tablet 75 mg PO DAILY Heart #90 tabs 12/29/22 02/05/24 Rx lactobacillus combination no.4 15 15,000 mmu cells PO DAILY 01/12/23 02/05/24 History billion cell capsule (Senior Probiotic) labetalol 200 mg tablet 200 mg PO BID Blood pressure #180 03/26/23 02/05/24 Rx tabs isosorbide mononitrate 120 mg 120 mg PO DAILY blood pressure #90 05/19/23 02/05/24 Rx tablet,extended release 24 hr tabs ketoconazole 2 % shampoo topical 07/08/23 02/05/24 History gabapentin 300 mg capsule 300 mg PO DAILY #90 caps 09/01/23 02/05/24 Rx losartan 50 mg tablet 50 mg PO BID blood pressure #180 09/01/23 02/05/24 Rx tabs nitroglycerin 0.4 mg sublingual 0.4 mg sublingual Q5M PRN chest 09/01/23 02/05/24 Rx tablet pain #25 tabs gabapentin 600 mg tablet 600 mg PO BID #180 tabs 09/07/23 02/05/24 Rx levothyroxine 112 mcg tablet 112 mcg PO QDAY Thyroid #90 tabs 12/14/23 02/05/24 Rx rosuvastatin 5 mg tablet 5 mg PO QHS cholesterol #90 tabs 12/14/23 02/05/24 Rx doxazosin 2 mg tablet 2 mg PO QHS #30 tabs 12/18/23 02/05/24 Rx PFSH Medical History (Updated 02/05/24 @ 13:39 by Leela Hong) Abdominal pain Electrolyte abnormality Acute maxillary sinusitis, unspecified Viral syndrome Malaise and fatigue Macrocytosis HTN (hypertension) Debility Vertigo CHERELLE (acute kidney injury) CAD (coronary artery disease) Wears hearing aid Wears glasses Prostate disease Back pain Migraine headache History of hiatal hernia CPAP (continuous positive airway pressure) dependence Asthma Umbilical hernia Lumbar back pain with radiculopathy affecting right lower extremity Piriformis syndrome Degenerative disc disease Bilateral knee pain 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 Thyroid disease Essential hypertension Anxiety Atherosclerotic heart disease of [place] coronary artery with other forms of angina pectoris EH (obstructive sleep apnea) Crohns disease Nonrheumatic tricuspid (valve) insufficiency Hypothyroidism Arthritis BPH (benign prostatic hyperplasia) Long-term current use of high risk medication other than anticoagulant Restless leg syndrome Hyperlipidemia Gastroesophageal reflux disease Surgical History History of bilateral cataract extraction S/P umbilical hernia repair, follow-up exam Hx of tonsillectomy History of coronary artery stent placement (09/07/18) H/O vasectomy History of left heart catheterization (11/12/18) History of prostate surgery Hx of appendectomy H/O hemorrhoidectomy eye lesion removal Family History Grandfather CVA (cerebral vascular accident) DepressionBrother COPD (chronic obstructive pulmonary disease)Grandmother DepressionSon ArthritisFather Arthritis CAD (coronary artery disease)Mother Hypertension Hyperlipidemia PacemakerOther Cancer Social History household members: spouse housing: house current occupational status: retired pets and animals: No Smoking Status: Never smoker second hand exposure: No alcohol intake: never substance use type: does not use caffeine: No what type of physical activity do you participate in: walking frequency: 5-6 times per week HPI HPI HPI: 83-year-old gentleman is being referred by Dr. Sean Campbell for surgical consultation regarding iron deficiency with low iron and low iron saturation. He carries a diagnosis of polycythemia. By report he has a personal history of Crohn's disease. He also gastroesophageal reflux disease. Pertinent interventional history is that he has had a history of hemorrhoidectomy and coronary stent placement and prostate surgery. Among his other medications he is on 81 mg aspirin and famotidine 20 mg daily and clopidogrel 75 mg daily. On January 21, 2024 he had a fecal occult blood test that was positive. He has noted to have a fatty liver. As of January 05, 2024 white blood cell count was 8.4 with a hemoglobin of 16.3 hematocrit 47.2 platelet count of 199,000. 90% neutrophils. ESR at that time was 29. Reticulocyte count was 1.16 which was normal. PT was 13.6 with an INR of 1 and a PTT of 46.1. BUN is 36 and creatinine 1.2. His total bilirubin was 1.6 with a direct bilirubin of 0.31. GGT was 253. On January 18, [address] chest abdomen pelvis. Sigmoid diverticulosis identified. Stable renal cyst. Mild linear atelectasis of the lung bases. Additionally on January 25, 2024 he had a right upper quadrant ultrasound demonstrating liver stiffness measuring 5.1K PA felt to be normal to mild liver fibrosis. The patient is being referred to consider combined esophagogastroduodenoscopy and colonoscopy. A written copy my surgical consult recommendations will return to Dr. Sean Campbell. The patient is complaining of sweats. He is complaining of fatigue. He is hopeful that I will be able to assist him with his medical problems. He notes intermittent bright red blood per rectum on the tissue. Possibly notes some slight bloating of the left abdomen. He does recant the previous remote right colectomy. He notes some right flank pain. No dysuria or hematuria ROS General General: Yes fatigue; No weight change, appetite, colon cancer, breast cancer or weakness HEENT HEENT: Yes eye injury and eye surgery; No difficulty swallowing, swollen glands or hoarseness Endo Endocrine: Yes thyroid disease; No diabetes mellitus, thyroid cancer, Hair loss, heat intolerance or cold intolerance Skin Skin: Yes rash and changing moles Breast Breast: No left breast lump, right breast lump, nipple discharge, breast pain, abnormal mammogram, abnormal US or breast enlargement Musc Musculoskeletal: Yes back problems; No arthritis, rheumatoid arthritis, gout or joint pain Cardio Cardiovascular: Yes heart disease, high blood pressure and heart stent; No murmur, pacemaker, atrial fibrillation, heart attack, palpitations, shortness of breat with exertion or chest pain Psych Psychiatric: No depression, anxiety or hearing voices Resp Respiratory: No shortness of breath, Yes sleep apnea, Yes cough, Yes COPD, No as thma, No emphysema and No wheezing Gastro Gastrointestinal: No abdominal pain, No nausea or vomiting, Yes diarrhea, No constipation, Yes blood in stool, Yes acid reflux, No hemorrhoids, No ulcers, No gallbladder problem and No black,tarry stools Cl Hematologic: Yes blood thinners, No blood disorders, No bleeding, No anemia and No blood clots Neuro Neurologic: No system reviewed and no additional complaints, except as documented, No as per HPI, No abnormal gait, No abnormal hearing, No abnormal movements, No abnormal speech, No behavioral changes, No burning sensations, No confusion, No convulsions, No disequilibrium, No dizziness, No localized weakness, No frequent falls, No headache(s), No lack of coordination, No loss of vision, No memory loss, No numbness, No other visual disturbances, No radicular pain, No restless legs, No sensory deficit, No syncope, No tingling, No tremor(s), No weakness and No other Exam Const General: cooperative, comfortable and no acute distress Nutritional Appearance: overweight Orientation: alert, awake and oriented x3 [facility] Head: normal to inspection Eyes General: appearance normal, both eyes and all related structures Neck Neck: normal visual inspection Chest Chest palpation & inspection: normal inspection of the chest Resp Effort & Inspection: normal respiratory effort Auscultation: clear to auscultation bilaterally Cardio Rate: regular rate Rhythm: regular rhythm GI Other: Soft, rotund, some slight tenderness palpation in the left mid abdomen but no mass no rebound no guarding. Bowel sounds present unremarkable. Musc Cervical Spine: normal cervical lordosis Skin General: no rashes or lesions noted Neuro General: patient alert, patient awake and patient oriented x3 Extrem General: no calf tenderness Psych Appearance: grossly normal Assessment and Plan Assessment and Plan (1) Iron deficiency: Status: Acute Comment: FOBT positive on 01/21/2024 (2) Polycythemia: Status: Chronic Comment: CT on 01/18/2024 shows no Malignancy. Hgb was normal on 01/05/2024. Orders: Orders Urinalysis, Complete Today R10.9 - Unspecified abdominal pain, R61 - Generalized hyperhidrosis Plan Because of the right flank pain I will pursue a urinalysis with culture and sensitivity if indicated. Because of the Hemoccult positive stool and slightly low ferritin we will pursue a esophagogastroduodenoscopy with possible biopsy and colonoscopy with possible biopsy or polypectomy as indicated. At this time I do not have a surgical etiology of the patient's presentation. He has had an opportunity to ask and have questions answered. We will pursue as noted. I appreciate the ongoing option of assisting with his surgical care. Copy: Dr. Tania Jackson and Dr. Sean Cummings M.D., F.A.C.S I have examined the patient and the H&P has been reviewed. There are no clinical changes since date of exam. Duane Cummings M.D., F.A.C.S.
[2024-02-16] MEDS: Lactated Ringers 1,000 ML 15 ML IV (06:04)
--- NOTE | 2024-02-16 06:30 | IMM_PTH ---
PATIENT: IMANI MORA LOC: EN U#:[id number] AGE/SX: 83/M ROOM: RE02/16/[address]: Dr. Duane Cummings MD : 1940 BED: DIS: 02/16/2024 SPEC #: [id number] RECD: 02/16/24 11:25 STATUS: JAQUAN REQ #: [id number] CATY: 02/16/24 06:[address]: Duane Cummings DEPT: IMMUNOHISTOCHEMISTRY RECD BY: Pradeep Horvath ENTERED: 02/16/24 11:26 SP TYPE: IMMUNO OTHR DR: Dr. Tania Jackson MD Tissues: B - Gastric mucous membrane Procedures: H Pylori (initial) PHYSICIAN & INSTITUTION [place] [address] SPECIMEN INFORMATION: Tissue Source: B- Gastric antrum biopsy Clinical Info: Iron deficiency, polycythemia Specimen Number: [id number] CPT code: 47061 METHODOLOGY: Deparaffinized sections of prefer/formalin-fixed tissue or PAP/DQ stained slides are incubated with monoclonal/polyclonal antibodies/oligonucleotide probes. Localization is made via biotin free immunoperoxidase method. Appropriate controls are performed and reacted as expected. Results on target cell population are indicated in the following table: RESULTS: ANTIBODY / CLONE RESULT Block B H Pylori (polyclonal) negative These tests were developed and their performance characteristics determined by [facility]. They may not have been cleared or approved by the U.S. Food and Drug Administration. The FDA has determined that such clearance or approval is not necessary. The above immunohistochemical/dualISH markers are ordered and reviewed by the Pathologist. INTERPRETATION: B. Gastric antrum, biopsy: Negative for Helicobacter pylori organisms. CRYSTAL/ 02/17/2024
--- NOTE | 2024-02-16 06:30 | COLBX_PTH ---
PATIENT: IMANI MORA LOC: EN U#:[id number] AGE/SX: 83/M ROOM: RE02/16/[address]: Dr. Duane Cummings MD : 1940 BED: DIS: 02/16/2024 SPEC #: [id number] RECD: 02/16/24 09:53 STATUS: JAQUAN OGEli #: [id number] CATY: 02/16/24 06:[address]: Duane Cummings DEPT: SURGICAL PATHOLOGY RECD BY: Adina De Los Santos ENTERED: 02/16/24 13:11 SP TYPE: COLON BX OTHR DR: Dr. Tania Jackson MD Tissues: A - Duodenum, NOS B - Gastric mucous membrane C - Stomach, NOS D - Esophagus, NOS Procedures: Special Stain Group I Surgery Specimen Level IV Alcian Blue/PAS (control) HEADER OPERATION: Colonoscopy, EGD, biopsy, hemostasis clip PRE-OP DIAGNOSIS: Iron deficiency, polycyhtemia TISSUE SUBMITTED: A- Duodenum biopsy, B- Antrum biopsy, C- Greater curvature ulcer biopsy, D- Distal esophagus biopsy MICROSCOPIC DIAGNOSIS A. Duodenum, biopsy: Mild non-specific chronic inflammation. B. Gastric antrum, biopsy: Mild chronic inflammation. C. Gastric greater curvature ulcer, biopsy: Chronic inflammation and mucosal denudation. Focal acute inflammation. D. Distal esophagus, biopsy: Gastroesophageal junctional mucosa with mild chronic inflammation. Focal changes of reflux. No evidence of goblet cell metaplasia. See comment. CRYSTAL/ 02/17/2024 COMMENT B. The results of immunohistochemistry for Helicobacter pylori will be reported separately ([id number]). D. Alcian blue/PAS stain with matched control supports the above diagnosis. MICROSCOPIC DESCRIPTION Slides are reviewed. GROSS DESCRIPTION A. Received in fixative is one container labeled with the patient's name and designated Duodenum biopsy. The specimen consists of one irregular fragment of light sellers soft tissue that measures 0.5 x 0.3 x 0.1 cm. The specimen is totally submitted in one cassette. B. Received in fixative is one container labeled with the patient's name and designated Antrum biopsy. The specimen consists of one irregular fragment of light sellers soft tissue that measures 0.6 x 0.5 x 0.1 cm. The specimen is totally submitted in one cassette. C. Received in fixative is one container labeled with the patient's name and designated Greater curvature ulcer. The specimen consists of one irregular fragment of light sellers soft tissue that measures 0.3 x 0.3 x 0.1 cm. The specimen is totally submitted in one cassette. D. Received in fixative is one container labeled with the patient's name and designated Distal esophagus biopsy. The specimen consists of multiple irregular fragments of light sellers soft tissue that in aggregate measure 1.0 x 0.5 x 0.1 cm. The specimen is totally submitted in one cassette. Yaneli 02/16/2024 TC:3 CPT:04896f0,27671
--- NOTE | 2024-02-16 07:04 | OP.CCLET_ITS ---
02/16/2024 Sean Campbell MD [address] [place] [address] Re : Upper GI endoscopy procedure for Chapo Miner Dear Dr. Campbell This procedure was performed on Friday, February 16, 2024. My impressions and recommendations are as follows: Impressions : - Reflux esophagitis with no bleeding. Biopsied. - 2 cm hiatal hernia. - Non-bleeding gastric ulcer with pigmented material. Biopsied. Clip was placed. - Erythematous mucosa in the antrum. Biopsied. - Erythematous duodenopathy. Biopsied. Recommendations : - Discharge patient to home. - Resume previous diet. - Continue present medications. - Use Pepcid (famotidine) 20 mg PO BID. - Telephone my office for pathology results in 1 week The patient already is on famotidine we will double the dosing. There was no active bright red bleeding. Greater curvature shallow ulcer could be a potential for slow blood loss anemia.. My findings are described in the full procedure note, which is enclosed. If I can be of further assistance, please feel free to contact me at Doctor phone number(s): Work: . Sincerely, Duane Cummings MD 02/16/2024 7:02:51 AM This report has been signed electronically.
--- NOTE | 2024-02-16 07:04 | OP.EGD_ITS ---
Patient Name: Chapo Miner Procedure Date: 02/16/2024 6:14 AM Date of : 1940 Age: 83 Procedure: Upper GI endoscopy Indications: Iron deficiency anemia Providers: Duane Cummings MD Referring MD: Tania Jackson MD Medicines: See the Anesthesia note for documentation of the administered medications Complications: No immediate complications. Procedure: Pre-Anesthesia Assessment: - Prior to the procedure, a History and Physical was performed, and patient medications and allergies were reviewed. The patient's tolerance of previous anesthesia was also reviewed. The risks and benefits of the procedure and the sedation options and risks were discussed with the patient. All questions were answered, and informed consent was obtained. Prior Anticoagulants: The patient has taken Plavix (clopidogrel), last dose was 3 days prior to procedure. ASA Grade Assessment: III - A patient with severe systemic disease. After reviewing the risks and benefits, the patient was deemed in satisfactory condition to undergo the procedure. After obtaining informed consent, the endoscope was passed under direct vision. Throughout the procedure, the patient's blood pressure, pulse, and oxygen saturations were monitored continuously. The colonoscope was introduced through the mouth, and advanced to the second part of duodenum. The upper GI endoscopy was accomplished without difficulty. The patient tolerated the procedure well. Scope In: 6:35:46 AM Scope Out: 6:44:43 AM Total Procedure Duration Time 0 hours 8 minutes 57 seconds Findings: Esophagitis with no bleeding was found 41 cm from the incisors. Biopsies were taken with a cold forceps for histology. A 2 cm hiatal hernia was present. One non-bleeding linear gastric ulcer with pigmented material was found on the greater curvature of the stomach. The lesion was 4 mm in largest dimension. Biopsies were taken with a cold forceps for histology. To prevent bleeding post-intervention, one hemostatic clip was successfully placed. There was no bleeding at the end of the procedure. Diffuse mildly erythematous mucosa without bleeding was found in the gastric antrum. Biopsies were taken with a cold forceps for histology. Diffuse mildly erythematous mucosa without active bleeding and with no stigmata of bleeding was found in the duodenal bulb. Biopsies were taken with a cold forceps for histology. Impression: - Reflux esophagitis with no bleeding. Biopsied. - 2 cm hiatal hernia. - Non-bleeding gastric ulcer with pigmented material. Biopsied. Clip was placed. - Erythematous mucosa in the antrum. Biopsied. - Erythematous duodenopathy. Biopsied. Recommendation: - Discharge patient to home. - Resume previous diet. - Continue present medications. - Use Pepcid (famotidine) 20 mg PO BID. - Telephone my office for pathology results in 1 week The patient already is on famotidine we will double the dosing. There was no active bright red bleeding. Greater curvature shallow ulcer could be a potential for slow blood loss anemia.. Procedure Code(s): --- Professional --- 65877, Esophagogastroduodenoscopy, flexible, transoral; with biopsy, single or multiple Diagnosis Code(s): --- Professional --- K21.00, Gastro-esophageal reflux disease with esophagitis, without bleeding K44.9, Diaphragmatic hernia without obstruction or gangrene K25.9, Gastric ulcer, unspecified as acute or chronic, without hemorrhage or perforation K31.89, Other diseases of stomach and duodenum D50.9, Iron deficiency anemia, unspecified CPT copyright 2021 [employer]. All rights reserved. The codes documented in this report are preliminary and upon upholstery tech review may be revised to meet current compliance requirements. Duane Cummings MD 02/16/2024 7:02:51 AM This report has been signed electronically. Number of Addenda: 0 Note Initiated On: 02/16/2024 6:14 AM
--- NOTE | 2024-02-16 07:08 | OP.COLON_ITS ---
Patient Name: Chapo Miner Procedure Date: 02/16/2024 6:44 AM Date of : 1940 Age: 83 Procedure: Colonoscopy Indications: Iron deficiency anemia Providers: Duane Cummings MD Referring MD: Tania Jackson MD Medicines: See the Anesthesia note for documentation of the administered medications Patient Profile: Last Colonoscopy: date unknown. Complications: No immediate complications. Procedure: Pre-Anesthesia Assessment: - Prior to the procedure, a History and Physical was performed, and patient medications and allergies were reviewed. The patient's tolerance of previous anesthesia was also reviewed. The risks and benefits of the procedure and the sedation options and risks were discussed with the patient. All questions were answered, and informed consent was obtained. Prior Anticoagulants: The patient has taken Plavix (clopidogrel), last dose was 3 days prior to procedure. ASA Grade Assessment: III - A patient with severe systemic disease. After reviewing the risks and benefits, the patient was deemed in satisfactory condition to undergo the procedure. After I obtained informed consent, the scope was passed under direct vision. Throughout the procedure, the patient's blood pressure, pulse, and oxygen saturations were monitored continuously. The colonoscope was introduced through the anus and advanced to the ileocolonic anastomosis. The colonoscopy was performed without difficulty. The patient tolerated the procedure well. The quality of the bowel preparation was good. Ileocolonic anastomosis were photographed. Scope In: 6:46:50 AM Scope Withdrawal Time 0 hours 6 minutes 27 seconds Scope Out: 6:55:00 AM Total Procedure Duration Time 0 hours 8 minutes 10 seconds Findings: The digital rectal exam findings include non-thrombosed internal hemorrhoids and internal hemorrhoids that prolapse with straining, but require manual replacement into the anal canal (Grade III). There was evidence of a prior end-to-end ileo-colonic anastomosis in the proximal transverse colon. This was patent and was characterized by healthy appearing mucosa. Multiple diverticula were found in the sigmoid colon. Impression: - Non-thrombosed internal hemorrhoids and internal hemorrhoids that prolapse with straining, but require manual replacement into the anal canal (Grade III) found on digital rectal exam. - Patent end-to-end ileo-colonic anastomosis, characterized by healthy appearing mucosa. - Diverticulosis in the sigmoid colon. - No specimens collected. Recommendation: - Discharge patient to home. - Resume previous diet. - Continue present medications. - Repeat colonoscopy is not recommended due to current age (66 years or older) for screening purposes. - Telephone my office if symptomatic Hemorrhoids might be potential source for blood loss but patient should be able to recognize bright red blood per rectum on tissue or in the commode.. Procedure Code(s): --- Professional --- 16410, Colonoscopy, flexible; diagnostic, including collection of specimen(s) by brushing or washing, when performed (separate procedure) Diagnosis Code(s): --- Professional --- K64.2, Third degree hemorrhoids Z98.0, Intestinal bypass and anastomosis status D50.9, Iron deficiency anemia, unspecified K57.30, Diverticulosis of large intestine without perforation or abscess without bleeding CPT copyright 2021 [employer]. All rights reserved. The codes documented in this report are preliminary and upon air twist operator review may be revised to meet current compliance requirements. Duane Cummings MD 02/16/2024 7:07:51 AM This report has been signed electronically. Number of Addenda: 0 Note Initiated On: 02/16/2024 6:44 AM
--- NOTE | 2024-02-16 07:08 | OP.CCLET_ITS ---
02/16/2024 Sean Campbell MD [address] [facility] [address] [place] [address] Re : Colonoscopy procedure for Chapo Miner Dear Dr. Campbell This procedure was performed on Friday, February 16, 2024. My impressions and recommendations are as follows: Impressions : - Non-thrombosed internal hemorrhoids and internal hemorrhoids that prolapse with straining, but require manual replacement into the anal canal (Grade III) found on digital rectal exam. - Patent end-to-end ileo-colonic anastomosis, characterized by healthy appearing mucosa. - Diverticulosis in the sigmoid colon. - No specimens collected. Recommendations : - Discharge patient to home. - Resume previous diet. - Continue present medications. - Repeat colonoscopy is not recommended due to current age (66 years or older) for screening purposes. - Telephone my office if symptomatic Hemorrhoids might be potential source for blood loss but patient should be able to recognize bright red blood per rectum on tissue or in the commode.. My findings are described in the full procedure note, which is enclosed. If I can be of further assistance, please feel free to contact me at Doctor phone number(s): Work: . Sincerely, Duane Cummings MD 02/16/2024 7:07:51 AM This report has been signed electronically.
== END 2024-02-16 07:54 | disposition home or self-care (01) ==
LOC: EN 05:25 → AC 05:34
PROVIDERS: PCP Internal Medicine; Referring Provider Internal Medicine; Visit Provider Surgery
PROC: 0DJD8ZZ Inspection of Lower Intestinal Tract, Via Natural or Artificial Opening Endoscopic (ICD-10-PCS; CPT 45378; principal; 2024-02-16 06:25)
DX: K57.30 Diverticulosis of large intestine without perforation or abscess without bleeding (principal); K64.2 Third degree hemorrhoids; I25.10 Atherosclerotic heart disease of native coronary artery without angina pectoris; K44.9 Diaphragmatic hernia without obstruction or gangrene; K25.9 Gastric ulcer, unspecified as acute or chronic, without hemorrhage or perforation; K21.00 Gastro-esophageal reflux disease with esophagitis, without bleeding; I10 Essential (primary) hypertension; E78.00 Pure hypercholesterolemia, unspecified; G47.33 Obstructive sleep apnea (adult) (pediatric); E07.9 Disorder of thyroid, unspecified; K31.89 Other diseases of stomach and duodenum; Z79.82 Long term (current) use of aspirin; Z79.01 Long term (current) use of anticoagulants; Z79.899 Other long term (current) drug therapy; Z95.5 Presence of coronary angioplasty implant and graft; Z98.0 Intestinal bypass and anastomosis status
CPT/HCPCS: 45378; 43239; 88305; 88312; 88342; J7120; J2405

== ENCOUNTER → 2024-02-19 | Outpatient (CLI) | payer MEDICARE, OTHER, SELFPAY ==
[2022-03-26 12:12] VITALS: BMI 28.0
[2024-02-19 15:55] LABS: Absolute Lymphocyte Count 0.69 X10^3/uL (0.83-4.51); Absolute Neutrophil Count 4.6 X10^3/uL (2.0-7.7); Basophil# 0.03 X10^3/uL; Basophil% 0.5 % (0-1); Eosinophil# 0.49 X10^3/uL; Eosinophils% 7.5 % (0-5); Hematocrit 45.8 % (40-54); Hemoglobin 15.2 g/dL (13.0-16.5); Lymphocyte # 0.69 X10^3/ul (0.83-4.51); Lymphocyte % 10.6 % (19-41); Mean Corp Hgb Conc 33.2 g/dL (32-36); Mean Corpuscular Hgb 32.9 pg (27.0-32.0); Mean Corpuscular Volume 99.1 fL (80-94); Mean Platelet Vol. 9.8 fl (6.2-12.0); Monocyte# 0.73 X10^3/uL; Monocyte% 11.2 % (0-10); NRBC Flagged by Analyzer 0 % (0-5); Neutrophil # 4.55 X10^3/uL (2.7-7.7); Platelet Count 255 K/mm3 (150-450); RBC Distribution Width SD 43.7 fl (35.1-43.9); Red Blood Count 4.62 M/mm3 (4.6-6.2); White Blood Count 6.5 K/mm3 (4.4-11.0)
[2024-02-19 16:24] LABS: ALB/GLOB Ratio 1.1 RATIO (0.9-2.4); AST(SGOT) 21 U/L (15-37); Alanine Aminotransfer ALT/SGPT 23 U/L (16-61); Albumin, Serum 3.6 g/dL (3.2-5.0); Alkaline Phosphatase 84 U/L (45-117); Anion Gap 5 (5-15); BUN 17 mg/dL (7-18); BUN/Creat Ratio 14.8 RATIO (10-20); CRP 3.38 mg/L (0.0-3.0); Chloride 103 mmol/L (98-107); Creatinine, Serum 1.15 mg/dL (0.70-1.30); EST Glomerular Filtration Rate 65 mL/min (>60); Est Glom Filt Rate - Afr Amer 78 mL/min (>60); GGTP 71 U/L (15-85); Globulin 3.2 g/dL (2.2-4.2); Glucose 102 mg/dL (74-106); Potassium 4.7 mmol/L (3.5-5.1); Protein, Total 6.8 g/dL (6.4-8.2); Sodium Level 136 mmol/L (136-145)
[2024-02-22 13:07] LABS: ANTINUCLEAR ANTIBODIES DIRECT Negative (Negative)
== END | disposition home or self-care (01) ==
LOC: MTLAB 12:33
PROVIDERS: PCP Internal Medicine; Referring Provider Internal Medicine; Visit Provider Internal Medicine
DX: D75.1 Secondary polycythemia (principal); R74.8 Abnormal levels of other serum enzymes; R79.82 Elevated C-reactive protein (CRP); M19.90 Unspecified osteoarthritis, unspecified site; I10 Essential (primary) hypertension
CPT/HCPCS: 36415; 80053; 82977; 85025; 86038; 86140; 86225; 86235

== ENCOUNTER 2024-04-13 17:30 | Outpatient (RCR) | payer SELFPAY ==
[2022-03-26 12:12] VITALS: BMI 28.0
== END 2024-04-20 23:59 ==
LOC: NS 17:30
PROVIDERS: PCP Internal Medicine
DX: Z71.3 Dietary counseling and surveillance (principal)

== ENCOUNTER 2024-04-20 14:22 | Emergency (ER) | payer MEDICARE, OTHER, SELFPAY ==
[2022-03-26 12:12] VITALS: BMI 28.0
[2024-04-20 14:23] VITALS: BP 132/69; PULSE 91; RESP 18; TEMP 37.1; O2SAT 100; BMI 28.6
--- NOTE | 2024-04-20 14:36 | CT_ITS ---
STUDY: CT ABDOMEN AND PELVIS WITH CONTRAST REASON FOR EXAM: Male, 83 years old. RLQ abd pain RADIATION DOSAGE (If Supplied By Facility): CTDIvol = ( 17.02 ) mGy, DLP = ( 1170.01 ) mGycm TECHNIQUE: Transaxial images were obtained from the dome of the diaphragm to the symphysis pubis without oral contrast. IV 100mL Isovue-300 was administered. Sagittal and coronal images were reconstructed. Individualized dose optimization techniques were used for this CT. COMPARISON: January 18, 2024. FINDINGS: The visualized lung bases are unremarkable. The visualized portions of the heart are within normal limits. Normal liver. Normal gallbladder and extrahepatic biliary system. Normal spleen. Normal pancreas. Normal bilateral adrenal glands. Up to 1.5 cm cysts in the right kidney. Up to 6.1 cm cyst in the left kidney. Normal visualized stomach. Mild wall thickening of the terminal ileum with adjacent mesenteric stranding. Normal colon. The appendix is not visualized. Calcified abdominal aorta with a stable infrarenal aortic dissection similar to previous study. Normal inferior vena cava. Normal retroperitoneum. Normal urinary bladder. Mild fatty density in the inguinal canals. Normal abdominal wall. Normal osseous structures. CT/Abdomen/Pelvis W IV Cont ONLY IMPRESSION: Mild wall thickening of the terminal ileum with adjacent mesenteric stranding. Bilateral renal cysts. Stable focal infrarenal abdominal aortic dissection. Electronically Signed: Gurdeep Gregory DO at 16:40 EDT ,
--- NOTE | 2024-04-20 14:36 | EKG12_ITS ---
Test Reason : ABD PAIN Blood Pressure : / mmHG Vent. Rate : 084 BPM Atrial Rate : 084 BPM P-R Int : 158 ms QRS Dur : 102 ms QT Int : 346 ms P-R-T Axes : 061 -60 038 degrees QTc Int : 408 ms Normal sinus rhythm Left axis deviation Abnormal ECG Confirmed by NORBERTO ANTONIO, CASSIDY ([id number]), material expeditor LAUREN ADAMS ([id number]) on 04/22/2024 10:24:29 AM Referred By: Confirmed By:MORENA THORNTON MD
--- NOTE | 2024-04-20 14:37 | EDS_ITS ---
HPI History of Present Illness Chief Complaint: Abd Pain Narrative Narrative: Patient is a 83-year-old male past medical history of hypercholesteremia, CAD with stents, hypertension, hypothyroidism, BPH, hyperlipidemia who presented to the emergency department chief complaint of abdominal pain. He states that yesterday he started to develop abdominal pain however throughout the night his pain significantly worsened into today prompting him to come here for further evaluation management. Patient does note that he has had his appendix out in the past as well as a small portion of his bowel secondary to surrounding infection from his perforated appendix. Patient states that his pain is in the right lower side of his abdomen. He states that he tried to take gas relief pills at home and this did not help he states that he tried to apply some heat which seems to be helping his pain somewhat. Patient rates his pain a 7 out of 10 here in the emergency department. [facility] Medical History Elevated liver enzymes Elevated C-reactive protein (CRP) Abnormal colonoscopy Rosacea Psoriasis Loss of hearing High cholesterol History of Crohn's disease Non-smoker History of echocardiogram History of stress test Cardiology follow-up encounter Abdominal pain Electrolyte abnormality Acute maxillary sinusitis, unspecified Viral syndrome Malaise and fatigue Macrocytosis HTN (hypertension) Debility Vertigo CHERELLE (acute kidney injury) CAD (coronary artery disease) Wears hearing aid Wears glasses Prostate disease Back pain Migraine headache History of hiatal hernia CPAP (continuous positive airway pressure) dependence Asthma Umbilical hernia Lumbar back pain with radiculopathy affecting right lower extremity Piriformis syndrome Degenerative disc disease Bilateral knee pain 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 Thyroid disease Essential hypertension Anxiety Atherosclerotic heart disease of three affiliated coronary artery with other forms of angina pectoris EH (obstructive sleep apnea) Crohns disease Nonrheumatic tricuspid (valve) insufficiency Hypothyroidism Arthritis BPH (benign prostatic hyperplasia) Long-term current use of high risk medication other than anticoagulant Restless leg syndrome Hyperlipidemia Gastroesophageal reflux disease Home Medications ?Medication ?Instructions ?Recorded ?Last Taken ?Type aspirin 81 mg chewable tablet 81 mg PO QHS Heart 03/20/14 02/12/24 History multivitamin with folic acid 400 1 tab PO DAILY Vitamin 03/20/14 04/13/19 22:00 History mcg tablet coenzyme Q10 75 mg capsule (Ultra 30 mg PO DAILY pain 06/01/19 Unknown History CoQ10) wheat dextrin 3 gram/3.5 gram oral 1 ea PO DAILY supplement 09/26/19 Unknown History powder packet diclofenac sodium 1 % topical gel 2 g topical PRN PRN Pain 07/30/21 Unknown History testosterone cypionate 100 mg/mL 100 mg IM Q2W hormone #10 mL 10/29/21 Unknown History intramuscular oil apple cider vinegar 600 mg capsule 600 mg PO DAILY pain 02/11/22 Unknown History cinnamon bark 500 mg capsule 1,000 mg PO DAILY pain 02/11/22 Unknown History (Cinnamon) bilberry 100 mg capsule 1,000 mg PO QHS Eye function 10/31/22 Unknown History ipratropium bromide 42 mcg (0.06 2 spray intranasal DAILY PRN 10/31/22 Unknown History %) nasal spray Congestion lactobacillus combination no.4 15 15,000 mmu cells PO DAILY 01/12/23 Unknown History billion cell capsule (Senior Probiotic) ketoconazole 2 % shampoo 1 applic topical DAILY 07/08/23 Unknown History nitroglycerin 0.4 mg sublingual 0.4 mg sublingual Q5M PRN chest 09/01/23 Unknown Rx tablet pain #25 tabs rosuvastatin 5 mg tablet 5 mg PO QHS cholesterol #90 tabs 12/14/23 Unknown Rx levothyroxine 112 mcg tablet 112 mcg PO QHS Thyroid 02/10/24 Unknown History ferrous sulfate 325 mg (65 mg 325 mg PO Q OTHER DAY #90 tabs 02/19/24 Unknown Rx iron) tablet,delayed release gabapentin 300 mg capsule 300 mg PO DAILY #90 caps 02/19/24 Unknown Rx gabapentin 600 mg tablet 600 mg PO QHS 3 months #90 tabs 02/19/24 Unknown Rx pantoprazole 40 mg tablet,delayed 40 mg PO DAILY #90 tabs 02/19/24 Unknown Rx release clopidogrel 75 mg tablet 75 mg PO DAILY Heart #90 tabs 04/11/24 Unknown Rx losartan 50 mg tablet 25 mg (1/2 x 50 mg) PO BID blood 04/11/24 Unknown Rx pressure #0 tabs isosorbide mononitrate 60 mg 60 mg PO BID patient cannot cut 04/12/24 Unknown Rx tablet,extended release 24 hr the 120 mg tablet in half #180 tabs labetalol 200 mg tablet 200 mg PO BID Blood pressure #180 04/13/24 Unknown Rx tabs hyoscyamine sulfate 0.125 mg 0.125 mg PO Q6H 5 days #20 tabs 04/20/24 Unknown Rx tablet (Levsin) ondansetron 4 mg disintegrating 4 mg PO Q8H PRN nausea and 04/20/24 Unknown Rx tablet vomiting 5 days #15 tabs Allergy/AdvReac Type Severity Reaction Status Date / Time amlodipine (From Norvasc) AdvReac Intermediate upset Verified 04/20/24 14:23 stomach amoxicillin (From Augmentin) AdvReac Intermediate Nausea/Vom/ Verified 04/20/24 14:23 Diarrhea clavulanic acid (From AdvReac Intermediate Nausea/Vom/ Verified 04/20/24 14:23 Augmentin) Diarrhea lisinopril AdvReac Intermediate cough Verified 04/20/24 14:23 atorvastatin (From Lipitor) AdvReac Pain in Verified 04/20/24 14:23 joints gemfibrozil (From Lopid) AdvReac Pain in Verified 04/20/24 14:23 joints niacin AdvReac Other Verified 04/20/24 14:23 Family History Grandfather CVA (cerebral vascular accident) Depression Brother COPD (chronic obstructive pulmonary disease) Grandmother Depression Son Arthritis Father Arthritis CAD (coronary artery disease) Mother Hypertension Hyperlipidemia Pacemaker Other Cancer Surgical History History of umbilical hernia repair (~2013) History of partial colectomy (~1993) History of cardiac catheterization History of bilateral cataract extraction S/P umbilical hernia repair, follow-up exam Hx of tonsillectomy History of coronary artery stent placement (09/07/18) H/O vasectomy History of left heart catheterization (11/12/18) History of prostate surgery Hx of appendectomy H/O hemorrhoidectomy (~1989) eye lesion removal Social History household members: spouse housing: house current occupational status: retired pets and animals: No Smoking Status: Never smoker second hand exposure: No alcohol intake: never substance use type: does not use caffeine: No what type of physical activity do you participate in: walking frequency: 5-6 times per week ROS ROS ED ROS Narrative Constitutional: Denies fevers, chills, headaches, Shane, dizziness cardiovascular: Denies chest pain or palpitations Respiratory: Denies cough wheezing shortness of breath Abdomen: Complains of abdominal pain as noted above denies nausea vomiting or diarrhea denies any blood in stool : Denies painful urination, hematuria, polyuria Neurological: Denies numbness, weakness, tingling Musculoskeletal: Denies back pain Skin: Denies rashes or lesions EXAM Physical Exam Narrative Exam Narrative: General: Patient lying in bed resting comfortably did not appear to be in acute distress Head: Atraumatic, normocephalic Eyes: PERRL bilaterally, EOMI bilaterally, no conjunctival injection noted Neck: Soft, supple, trachea midline Cardiovascular: Regular rate and rhythm no murmurs gallops rubs noted Respiratory: Clear to auscultation bilaterally no rales rhonchi or wheeze noted Abdomen: Soft, nondistended, tenderness to palpation in the right lower quadrant no rebound or guarding on exam Extremities: +5/5 strength noted in the bilateral upper and lower extremities, no pedal edema on exam Neurological: Patient following commands knew he is [facility] the year is 2023 Skin: Warm, dry, intact Const Vital Signs: 04/20/24 14:23 Temperature 98.8 F Temperature Source Temporal Pulse Rate 91 Respiratory Rate 18 Blood Pressure 132/69 H Blood Pressure Mean 90 Pulse Ox 100 Oxygen Delivery Method Room Air MDM MDM MDM Narrative Medical decision making narrative: Patient is a 83-year-old male who presented to the emergency department with a chief complaint of abdominal pain. Patient will have a workup performed here on the differential diagnosis includes but not limited to small bowel obstruction, abscess, pancreatitis, cholecystitis, UTI, urolithiasis. Once workup is obtained reviewed he will be reevaluated. Patient be given IV fluids, morphine and Zofran. Patient CBC reviewed and showed no evidence of leukocytosis white blood count normal at 5.8, hemoglobin stable 14.1, plate count normal at 200. Patient's sodium was only 131, potassium normal at 4.3, creatinine normal at 0.98. Patient's AST and ALT were 31 and 37 respectively. Patient troponin normal at 5, lipase normal at 25. Patient's urinalysis did not reveal any evidence of infection. Patient's EKG was reviewed and showed sinus rhythm with a rate of 84 beats per minutes. Patient CT abdomen pelvis with contrast was reviewed and showed mild wall thickening of the terminal ileum with adjacent mesenteric stranding. Bilateral renal cyst. Stable focal infrarenal abdominal aortic dissection which is similar to previous study. Did discuss results with the patient and he would like to go home at this point in time. Patient was encouraged to follow-up with his primary care physician. He is encouraged to return for worsening pain, intractable nausea vomiting and fevers. He is agreeable this plan all question concerns he was discharged home in stable condition. Lab Data Labs: Laboratory Results - last 24 hr 04/20/24 04/20/24 14:47 15:00 WBC 5.8 RBC 4.31 L Hgb 14.1 Hct 40.9 MCV 94.9 H MCH 32.7 H MCHC 34.5 RDW Std Deviation 42.1 RDW Coeff of Beni 11.9 Plt Count 200 MPV 8.3 Immature Gran % (Auto) 0.200 Neut % (Auto) 77.2 H Lymph % (Auto) 7.4 L [place] % (Auto) 14.1 H Eos % (Auto) 0.9 Baso % (Auto) 0.2 Absolute Neuts (auto) 4.5 Absolute Lymphs (auto) 0.43 L Nucleated RBC % 0 Sodium 131 L Potassium 4.3 Chloride 99 Carbon Dioxide 26.0 Anion Gap 6 BUN 18 Creatinine 0.98 Estim Creat Clear Calc 61.85 Est GFR (MDRD) Af Amer 94 Est GFR (MDRD) Non-Af 78 BUN/Creatinine Ratio 18.3 Glucose 99 Calcium 8.4 L Total Bilirubin 1.60 H AST 31 ALT 37 Alkaline Phosphatase 98 Troponin I High Sens 5 Total Protein 6.2 L Albumin 3.2 Globulin 3.0 Albumin/Globulin Ratio 1.1 Lipase 25 Urine Color Yellow Urine Clarity Clear Urine pH 7.0 Ur Specific [place] 1.010 Urine Protein 15 H Urine Glucose (UA) Normal Urine Ketones 5 H Urine Occult Blood Negative Urine Nitrite Negative Urine Bilirubin 1 H Urine Urobilinogen 4 H Ur Leukocyte Esterase 25 H Urine RBC 0 SEEN Urine WBC 0 SEEN Ur Squamous Epith Cells 0 SEEN Urine Bacteria 0 SEEN Urine Mucus 0 SEEN Discharge Plan Triage Chief Complaint: Abd Pain ED Provider: Connor Mora Dx/Rx/DC Orders Clinical Impression: Abdominal pain Instructions: ED Abdominal Pain Unkn Cause Male... Prescriptions: New hyoscyamine sulfate [Levsin] 0.125 mg tablet 0.125 mg PO Q6H 5 Days Qty: 20 0RF ondansetron 4 mg tablet,disintegrating 4 mg PO Q8H PRN (Reason: nausea and vomiting) 5 Days Qty: 15 0RF No Action Ultra CoQ10 75 mg capsule 30 mg PO DAILY testosterone cypionate 100 mg/mL oil 100 mg IM Q2W Qty: 10 diclofenac sodium 1 % gel 2 g topical PRN PRN (Reason: Pain) Rx Instructions: apply to single elbow, wrist or hand; for hand includes palm/fingers/back of hand cinnamon bark [Cinnamon] 500 mg capsule 1,000 mg PO DAILY apple cider vinegar 600 mg capsule 600 mg PO DAILY Senior Probiotic 15 billion cell capsule 15,000 mmu cells PO DAILY Rx Instructions: administer with a meal ipratropium bromide 42 mcg (0.06 %) spray,non-aerosol 2 spray intranasal DAILY PRN (Reason: Congestion) Patient Comments: [place] 2 spray into both nostrils once a day as needed ketoconazole 2 % shampoo 1 applic topical DAILY Patient Comments: Wash scalp and face once a day, letting suds rest for a few minutes before rinsing pantoprazole 40 mg tablet,delayed release (DR/EC) 40 mg PO DAILY Qty: 90 1RF gabapentin 300 mg capsule 300 mg PO DAILY Qty: 90 0RF Rx Instructions: Take at 2:00 gabapentin 600 mg tablet 600 mg PO QHS 90 Days Qty: 90 0RF ferrous sulfate 325 mg (65 mg iron) tablet,delayed release (DR/EC) 325 mg PO Q OTHER DAY Qty: 90 1RF losartan 50 mg tablet 25 mg PO BID Qty: 0 0RF clopidogrel 75 mg tablet 75 mg PO DAILY Qty: 90 3RF aspirin 81 MG tablet,chewable 81 mg PO QHS Patient Comments: preventative for stroke heart WAS TOLD TO STOP FOR 08/20/18 for endo on 08/24/18 Rx Instructions: Takes in Evening multivitamin with folic acid 1 TABLET tablet 1 tab PO DAILY Patient Comments: suppliment Rx Instructions: Takes in the evening bilberry 100 mg capsule 1,000 mg PO QHS wheat dextrin 1 EACH powder in packet 1 ea PO DAILY levothyroxine 112 mcg tablet 112 mcg PO QHS nitroglycerin 0.4 mg tablet, sublingual 0.4 mg sublingual Q5M PRN (Reason: chest pain) Qty: 25 3RF Rx Instructions: do not exceed 3 doses per episode rosuvastatin 5 mg tablet 5 mg PO QHS Qty: 90 3RF isosorbide mononitrate 60 mg tablet extended release 24 hr 60 mg PO BID Qty: 180 3RF labetalol 200 mg tablet 200 mg PO BID Qty: 180 1RF Primary Care Provider: Tania Jackson Referrals: Tania Jackson MD [Primary Care Provider] - Activity Restrictions/Additional Instructions: Follow-up with your doctor in the outpatient setting. Return with fevers, worsening pain, vomiting not tolerating oral intake. Take prescriptions as prescribed. Take Tylenol [id number] for pain control. Print Language: Malay Disposition Disposition: Home, Self Care
[2024-04-20 14:56] LABS: Absolute Lymphocyte Count 0.43 X10^3/uL (0.83-4.51); Absolute Neutrophil Count 4.5 X10^3/uL (2.0-7.7); Basophil# 0.01 X10^3/uL; Basophil% 0.2 % (0-1); Eosinophil# 0.05 X10^3/uL; Eosinophils% 0.9 % (0-5); Hematocrit 40.9 % (40-54); Hemoglobin 14.1 g/dL (13.0-16.5); Lymphocyte # 0.43 X10^3/ul (0.83-4.51); Lymphocyte % 7.4 % (19-41); Mean Corp Hgb Conc 34.5 g/dL (32-36); Mean Corpuscular Hgb 32.7 pg (27.0-32.0); Mean Corpuscular Volume 94.9 fL (80-94); Mean Platelet Vol. 8.3 fl (6.2-12.0); Monocyte# 0.82 X10^3/uL; Monocyte% 14.1 % (0-10); NRBC Flagged by Analyzer 0 % (0-5); Neutrophil % 77.2 % (47-70); POSITIVE DIFFERENTIAL YES; Platelet Count 200 K/mm3 (150-450); RBC Distribution Width CV 11.9 % (11.6-14.6); RBC Distribution Width SD 42.1 fl (35.1-43.9); Red Blood Count 4.31 M/mm3 (4.6-6.2); White Blood Count 5.8 K/mm3 (4.4-11.0)
[2024-04-20] MEDS: 0.9% Normal Saline (1000mL) 1,000 ML 999 ML IV (14:57)
[2024-04-20] MEDS: Ondansetron 4 MG/2 ML Vial IV (15:03)
[2024-04-20] MEDS: Morphine 4 MG/ML Syringe IV ×2 (15:04→16:54)
[2024-04-20 15:11] LABS: Bacteria 0 SEEN /hpf (None Seen); Mucous, Urine 0 SEEN /hpf (<or=2+); Red Blood Cells-Urine 0 SEEN /hpf (0-5); Squamous Epithelial Cells - UA 0 SEEN /hpf (0-5); White Blood Cells 0 SEEN /hpf (0-5)
[2024-04-20 15:15] LABS: ALB/GLOB Ratio 1.1 RATIO (0.9-2.4); AST(SGOT) 31 U/L (15-37); Alanine Aminotransfer ALT/SGPT 37 U/L (16-61); Albumin, Serum 3.2 g/dL (3.2-5.0); Alkaline Phosphatase 98 U/L (45-117); Anion Gap 6 (5-15); BUN 18 mg/dL (7-18); BUN/Creat Ratio 18.3 RATIO (10-20); Calcium,Total 8.4 mg/dL (8.5-10.1); Chloride 99 mmol/L (98-107); Creatinine, Serum 0.98 mg/dL (0.70-1.30); EST Glomerular Filtration Rate 78 mL/min (>60); Est Glom Filt Rate - Afr Amer 94 mL/min (>60); Estimated Creatinine Clearance 61.85 ml/min; Glucose 99 mg/dL (74-106); Lipase 25 U/L (13-75); Potassium 4.3 mmol/L (3.5-5.1); Protein, Total 6.2 g/dL (6.4-8.2); Sodium Level 131 mmol/L (136-145); Troponin-I HS 5 pg/mL (3.0-78.0)
[2024-04-20 15:18] LABS: Color, Urine Yellow (Yellow); Glucose, Dipstick Normal (Normal); Ketone-Dipstick 5 mg/dl (Negative); Leukocyte Esterase-Dipstick 25 /ul (Negative); Nitrite-Dipstick Negative (Negative); Occult Blood-Urine Negative /ul (Negative); Protein-Dipstick 15 mg/dl (Negative); Urine Clarity Clear (Clear); Urine Urobilinogen 4 mg/dl (Normal)
[2024-04-20 15:22] LABS: Urine Bilirubin Dipstick 1 mg/dL (Negative)
[2024-04-20 16:22] VITALS: BP 150/81; PULSE 84; RESP 16; O2SAT 95
[2024-04-20 17:09] VITALS: BP 149/80; PULSE 86; RESP 16; TEMP 37.1; O2SAT 95
== END 2024-04-20 17:10 | disposition home or self-care (01) ==
PROVIDERS: Emergency Provider Emergency Medicine; PCP Internal Medicine; Visit Provider Emergency Medicine
DX: R10.9 Unspecified abdominal pain (principal); I25.10 Atherosclerotic heart disease of native coronary artery without angina pectoris; I10 Essential (primary) hypertension; E78.00 Pure hypercholesterolemia, unspecified; N28.1 Cyst of kidney, acquired; E03.9 Hypothyroidism, unspecified; N40.0 Benign prostatic hyperplasia without lower urinary tract symptoms; Z95.5 Presence of coronary angioplasty implant and graft; G47.33 Obstructive sleep apnea (adult) (pediatric); Z79.82 Long term (current) use of aspirin
CPT/HCPCS: 74177; 80053; 81001; 83690; 84484; 85025; 93005; 96361; 96374; 96375; 96376; 99283; J7030; Q9967; A4216; J2405

== ENCOUNTER 2024-04-21 17:54 | Emergency (ER) | payer MEDICARE, OTHER, SELFPAY ==
[2022-03-26 12:12] VITALS: BMI 28.0
[2024-04-21 17:54] VITALS: BP 125/71; PULSE 107; RESP 16; TEMP 37.6; O2SAT 93; BMI 29.1
--- NOTE | 2024-04-21 19:33 | EDS_ITS ---
HPI HPI - GI History of Present Illness Chief Complaint: Abd Pain Informant: patient, spouse/S.O. and PCP Narrative Narrative: 83-year-old male has had right-sided abdominal pain for 2-3 days approximately. No nausea, vomiting, problems urinating, or fevers/chills. No worse with meals. No radiation into his back or the other side of his abdomen or migrating elsewhere. He had a prior partial colon resection and hernia repair remotely and no other abdominal surgeries. He was seen here yesterday in the ER, had blood test and a CT scan and discharged on hyoscyamine and Zofran, he states it is not helping the pain at all. He denies any new symptoms. He states the pain is severe. He talked to his nurse practitioner for follow-up today and was directed back here to the ER. [facility] Medical History Elevated liver enzymes Elevated C-reactive protein (CRP) Abnormal colonoscopy Rosacea Psoriasis Loss of hearing High cholesterol History of Crohn's disease Non-smoker History of echocardiogram History of stress test Cardiology follow-up encounter Abdominal pain Electrolyte abnormality Acute maxillary sinusitis, unspecified Viral syndrome Malaise and fatigue Macrocytosis HTN (hypertension) Debility Vertigo CHERELLE (acute kidney injury) CAD (coronary artery disease) Wears hearing aid Wears glasses Prostate disease Back pain Migraine headache History of hiatal hernia CPAP (continuous positive airway pressure) dependence Asthma Umbilical hernia Lumbar back pain with radiculopathy affecting right lower extremity Piriformis syndrome Degenerative disc disease Bilateral knee pain 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 Thyroid disease Essential hypertension Anxiety Atherosclerotic heart disease of [place] coronary artery with other forms of angina pectoris EH (obstructive sleep apnea) Crohns disease Nonrheumatic tricuspid (valve) insufficiency Hypothyroidism Arthritis BPH (benign prostatic hyperplasia) Long-term current use of high risk medication other than anticoagulant Restless leg syndrome Hyperlipidemia Gastroesophageal reflux disease Home Medications ?Medication ?Instructions ?Recorded ?Last Taken ?Type aspirin 81 mg chewable tablet 81 mg PO QHS Heart 03/20/14 02/12/24 History multivitamin with folic acid 400 1 tab PO DAILY Vitamin 03/20/14 04/13/19 22:00 History mcg tablet coenzyme Q10 75 mg capsule (Ultra 30 mg PO DAILY pain 06/01/19 Unknown History CoQ10) wheat dextrin 3 gram/3.5 gram oral 1 ea PO DAILY supplement 09/26/19 Unknown History powder packet diclofenac sodium 1 % topical gel 2 g topical PRN PRN Pain 07/30/21 Unknown History testosterone cypionate 100 mg/mL 100 mg IM Q2W hormone #10 mL 10/29/21 Unknown History intramuscular oil apple cider vinegar 600 mg capsule 600 mg PO DAILY pain 02/11/22 Unknown History cinnamon bark 500 mg capsule 1,000 mg PO DAILY pain 02/11/22 Unknown History (Cinnamon) bilberry 100 mg capsule 1,000 mg PO QHS Eye function 10/31/22 Unknown History ipratropium bromide 42 mcg (0.06 2 spray intranasal DAILY PRN 10/31/22 Unknown History %) nasal spray Congestion lactobacillus combination no.4 15 15,000 mmu cells PO DAILY 01/12/23 Unknown History billion cell capsule (Senior Probiotic) ketoconazole 2 % shampoo 1 applic topical DAILY 07/08/23 Unknown History nitroglycerin 0.4 mg sublingual 0.4 mg sublingual Q5M PRN chest 09/01/23 Unknown Rx tablet pain #25 tabs rosuvastatin 5 mg tablet 5 mg PO QHS cholesterol #90 tabs 12/14/23 Unknown Rx levothyroxine 112 mcg tablet 112 mcg PO QHS Thyroid 02/10/24 Unknown History ferrous sulfate 325 mg (65 mg 325 mg PO Q OTHER DAY #90 tabs 02/19/24 Unknown Rx iron) tablet,delayed release gabapentin 300 mg capsule 300 mg PO DAILY #90 caps 02/19/24 Unknown Rx gabapentin 600 mg tablet 600 mg PO QHS 3 months #90 tabs 02/19/24 Unknown Rx pantoprazole 40 mg tablet,delayed 40 mg PO DAILY #90 tabs 02/19/24 Unknown Rx release clopidogrel 75 mg tablet 75 mg PO DAILY Heart #90 tabs 04/11/24 Unknown Rx losartan 50 mg tablet 25 mg (1/2 x 50 mg) PO BID blood 04/11/24 Unknown Rx pressure #0 tabs isosorbide mononitrate 60 mg 60 mg PO BID patient cannot cut 04/12/24 Unknown Rx tablet,extended release 24 hr the 120 mg tablet in half #180 tabs labetalol 200 mg tablet 200 mg PO BID Blood pressure #180 04/13/24 Unknown Rx tabs hyoscyamine sulfate 0.125 mg 0.125 mg PO Q6H 5 days #20 tabs 04/20/24 Unknown Rx tablet (Levsin) ondansetron 4 mg disintegrating 4 mg PO Q8H PRN nausea and 04/20/24 Unknown Rx tablet vomiting 5 days #15 tabs ciprofloxacin HCl 500 mg tablet 500 mg PO BID #14 TABLETS 04/21/24 Unknown Rx hydrocodone-acetaminophen 5-325mg 1 tab PO Q6H PRN PRN Pain 4 days 04/21/24 Unknown Rx 5mg-325mg #15 TABLETS metronidazole 500 mg tablet 500 mg PO BID #14 tabs 04/21/24 Unknown Rx prednisone 20 mg tablet 40 mg (2 x 20 mg) PO DAILY 2 weeks 04/21/24 Unknown Rx #28 TABLETS Allergy/AdvReac Type Severity Reaction Status Date / Time amlodipine (From Norvasc) AdvReac Intermediate upset Verified 04/20/24 14:23 stomach amoxicillin (From Augmentin) AdvReac Intermediate Nausea/Vom/ Verified 04/20/24 14:23 Diarrhea clavulanic acid (From AdvReac Intermediate Nausea/Vom/ Verified 04/20/24 14:23 Augmentin) Diarrhea lisinopril AdvReac Intermediate cough Verified 04/20/24 14:23 atorvastatin (From Lipitor) AdvReac Pain in Verified 04/20/24 14:23 joints gemfibrozil (From Lopid) AdvReac Pain in Verified 04/20/24 14:23 joints niacin AdvReac Other Verified 04/20/24 14:23 Family History Grandfather CVA (cerebral vascular accident) Depression Brother COPD (chronic obstructive pulmonary disease) Grandmother Depression Son Arthritis Father Arthritis CAD (coronary artery disease) Mother Hypertension Hyperlipidemia Pacemaker Other Cancer Surgical History History of umbilical hernia repair (~2013) History of partial colectomy (~1993) History of cardiac catheterization History of bilateral cataract extraction S/P umbilical hernia repair, follow-up exam Hx of tonsillectomy History of coronary artery stent placement (09/07/18) H/O vasectomy History of left heart catheterization (11/12/18) History of prostate surgery Hx of appendectomy H/O hemorrhoidectomy (~1989) eye lesion removal Social History household members: spouse housing: house current occupational status: retired pets and animals: No Smoking Status: Never smoker second hand exposure: No alcohol intake: never substance use type: does not use caffeine: No what type of physical activity do you participate in: walking frequency: 5-6 times per week ROS ROS ED Constitutional Constitutional ED: Denies chills or fever(s) Eyes Eyes: Denies change in vision or diplopia ENT ENT ED: Denies rhinorrhea or sore throat Cardiovascular Cardiovascular: Denies chest pain or palpitations Respiratory/Chest Respiratory/Chest: Denies cough or dyspnea Gastrointestinal Gastrointestinal: Reports abdominal pain; Denies diarrhea, nausea or vomiting Genitourinary Genitourinary ED: Denies dysuria or hematuria Musculoskeletal Musculoskeletal: Denies back pain or neck pain Integumentary Denies abscess or rash Neurologic Neurologic: Denies headache(s), paresthesias or weakness Psychiatric Psychiatric: Denies suicidal thoughts EXAM Physical Exam Const Vital Signs: 04/21/24 17:54 04/21/24 20:00 04/21/24 20:04 Temperature 99.6 F H 99.2 F H Temperature Source Temporal Oral Pulse Rate 107 H 87 90 Respiratory Rate 16 18 16 Blood Pressure 125/71 H 138/69 H 143/63 H Blood Pressure Mean 89 92 89 Pulse Ox 93 92 94 Oxygen Delivery Method Room Air Room Air Room Air 04/21/24 22:00 Temperature Temperature Source Pulse Rate 84 Respiratory Rate 16 Blood Pressure 138/68 H Blood Pressure Mean 91 Pulse Ox 93 Oxygen Delivery Method Room Air Positive well nourished and well developed General Appearance ED: well developed and NAD HEENT Reports moist mucous membranes normocephalic and atraumatic Eyes PERRL and EOMs intact bilaterally Neck full ROM and supple Resp normal respiratory effort and clear to auscultation bilaterally Cardio regular rate, regular rhythm and no murmurs GI non-distended GI Narrative: Protuberant abdomen, soft. Tender in the right lower quadrant around McBurney's point. He has also been mildly/less tender in the lateral aspect of the right upper quadrant and right mid abdomen but more so in the right lower quadrant. Negative Rovsing. Negative psoas, negative obturator signs. There is some mild involuntary guarding in the right lower quadrant but no rebound tenderness. Auscultation: normoactive bowel sounds Palpation: soft Back/Spine no CVA tenderness General Back: other FROM Extremity normal to inspection General Extremety ED: Negative for edema, pulses abnormal or tenderness General Extremity: Negative for edema or pulses abnormal Neuro oriented x3, CN's II-XII intact bilaterally and no sensory deficits noted Sensorium / Orientation: awake and alert Motor Exam: strength 5/5 throughout Psych mental status grossly normal and thought process normal Skin no rashes or lesions noted and no wounds MDM MDM MDM Narrative Medical decision making narrative: I reviewed the patient's chart from 2 days ago. I reviewed the CT and the results. It shows some terminal ileitis. I asked the patient if he is ever been diagnosed with Crohn's disease or other type of inflammatory bowel disease. He states in fact, back in the s he had a partial bowel resection which included his appendix, because he had a scope showing Crohn's disease. He was told it would be less likely to return. Given this information, I suspect it is related to his pain. He states he had a screening colonoscopy 2 or [address] Cummings right before he retired, that was unremarkable. I advised him that this is just past the colon and if he did not have pain and inflammation then, certainly this could all coexist along with a normal colonoscopy 2 or 3 weeks ago. I think treating him as a Crohn's exacerbation would be the most appropriate treatment/course of action for right now. Given that his white count was 5.8 two days ago, that argues against an acute infection. Given that, pain medication in addition to steroids may be the most appropriate thing. I asked the patient if he was in so much pain that he was unwilling to try outpatient treatment and follow-up instead being admitted to the hospital. He states no he prefers to try outpatient treatment and follow-up and if he had something more for pain that could be better. Therefore I am repeating his labs, treating him with IV Solu-Medrol, morphine, a small dose of Toradol for the inflammation which I think may help more tonight, and some prophylactic Zofran along with some IV fluids, if the labs look good plans to discharge him on steroids and hyd rocodone as needed for pain. He and were comfortable with that plan, I spoke to them at length. Labs noted. His total bilirubin went up from 1.6-2.6, so I did obtain a right upper quadrant ultrasound although the majority of his pain is lower than this, to rule out biliary obstruction. The ultrasound is normal. Patient is doing much better after the medications. I do not think he needs to be reimaged emergently, especially knowing now that he no longer has an appendix. I discussed this case with Dr. Leiva. He agrees with the above and states he will squeeze the patient in sometime next week if he calls for an appointment. He recommends prednisone 40 mg a day, to give him a 2-week supply as well as a course of Cipro and Flagyl. I relayed this to the patient, and gave him a p rescription for some pain medication to use as needed as well. He is comfortable going home. Lab Data Attestation: I reviewed the patient's lab results. Labs: Laboratory Results - last 24 hr 04/21/24 19:50 WBC 8.3 RBC 4.08 L Hgb 13.2 Hct 39.0 L MCV 95.6 H MCH 32.4 H MCHC 33.8 RDW Std Deviation 42.0 RDW Coeff of Beni 12.0 Plt Count 193 MPV 8.8 Immature Gran % (Auto) 0.200 Neut % (Auto) 78.5 H Lymph % (Auto) 5.6 L [place] % (Auto) 14.9 H Eos % (Auto) 0.6 Baso % (Auto) 0.2 Absolute Neuts (auto) 6.5 Absolute Lymphs (auto) 0.46 L Nucleated RBC % 0 Sodium 131 L Potassium 4.3 Chloride 100 Carbon Dioxide 25.0 Anion Gap 6 BUN 21 H Creatinine 1.17 Estim Creat Clear Calc 52.18 Est GFR (MDRD) Af Amer 77 Est GFR (MDRD) Non-Af 63 BUN/Creatinine Ratio 17.9 Glucose 129 H Calcium 8.1 L Total Bilirubin 2.60 H AST 41 H ALT 45 Alkaline Phosphatase 127 H Total Protein 6.2 L Albumin 2.9 L Globulin 3.3 Albumin/Globulin Ratio 0.9 Radiography Diagnostic Testing: Clinical Impression(s) from Imaging Studies Gallbladder Ultrasound 04/21/24 21:31 IMPRESSION: No acute sonographic abnormality is demonstrated in the right upper quadrant. 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 Discharge Plan Triage Chief Complaint: Abd Pain ED Provider: Vipul Martinez Dx/Rx/DC Orders Clinical Impression: Terminal ileitis Instructions: ED Crohn's Disease Prescriptions: New metronidazole 500 mg tablet 500 mg PO BID Qty: 14 0RF ciprofloxacin HCl 500 mg tablet 500 mg PO BID Qty: 14 0RF prednisone 20 mg tablet 40 mg PO DAILY 14 Days Qty: 28 0RF hydrocodone-acetaminophen 5-325 mg tablet 1 tab PO Q6H PRN PRN (Reason: Pain) 4 Days Qty: 15 0RF No Action Ultra CoQ10 75 mg capsule 30 mg PO DAILY testosterone cypionate 100 mg/mL oil 100 mg IM Q2W Qty: 10 diclofenac sodium 1 % gel 2 g topical PRN PRN (Reason: Pain) Rx Instructions: apply to single elbow, wrist or hand; for hand includes palm/fingers/back of hand cinnamon bark [Cinnamon] 500 mg capsule 1,000 mg PO DAILY apple cider vinegar 600 mg capsule 600 mg PO DAILY Senior Probiotic 15 billion cell capsule 15,000 mmu cells PO DAILY Rx Instructions: administer with a meal ipratropium bromide 42 mcg (0.06 %) spray,non-aerosol 2 spray intranasal DAILY PRN (Reason: Congestion) Patient Comments: [place] 2 spray into both nostrils once a day as needed ketoconazole 2 % shampoo 1 applic topical DAILY Patient Comments: Wash scalp and face once a day, letting suds rest for a few minutes before rinsing pantoprazole 40 mg tablet,delayed release (DR/EC) 40 mg PO DAILY Qty: 90 1RF gabapentin 300 mg capsule 300 mg PO DAILY Qty: 90 0RF Rx Instructions: Take at 2:00 gabapentin 600 mg tablet 600 mg PO QHS 90 Days Qty: 90 0RF ferrous sulfate 325 mg (65 mg iron) tablet,delayed release (DR/EC) 325 mg PO Q OTHER DAY Qty: 90 1RF losartan 50 mg tablet 25 mg PO BID Qty: 0 0RF clopidogrel 75 mg tablet 75 mg PO DAILY Qty: 90 3RF aspirin 81 MG tablet,chewable 81 mg PO QHS Patient Comments: preventative for stroke heart WAS TOLD TO STOP FOR 08/20/18 for endo on 08/24/18 Rx Instructions: Takes in Evening multivitamin with folic acid 1 TABLET tablet 1 tab PO DAILY Patient Comments: suppliment Rx Instructions: Takes in the evening bilberry 100 mg capsule 1,000 mg PO QHS wheat dextrin 1 EACH powder in packet 1 ea PO DAILY levothyroxine 112 mcg tablet 112 mcg PO QHS hyoscyamine sulfate [Levsin] 0.125 mg tablet 0.125 mg PO Q6H 5 Days Qty: 20 0RF ondansetron 4 mg tablet,disintegrating 4 mg PO Q8H PRN (Reason: nausea and vomiting) 5 Days Qty: 15 0RF nitroglycerin 0.4 mg tablet, sublingual 0.4 mg sublingual Q5M PRN (Reason: chest pain) Qty: 25 3RF Rx Instructions: do not exceed 3 doses per episode rosuvastatin 5 mg tablet 5 mg PO QHS Qty: 90 3RF isosorbide mononitrate 60 mg tablet extended release 24 hr 60 mg PO BID Qty: 180 3RF labetalol 200 mg tablet 200 mg PO BID Qty: 180 1RF Primary Care Provider: Tania Jackson Referrals: Tania Jackson MD [Primary Care Provider] - Friend,DO Te [Med Staff - Active Staff] - (next week - call for appt; said he would fit you in sometime next wk) Print Language: Latvian Disposition Disposition: Home, Self Care
[2024-04-21] MEDS: Morphine 4 MG/ML Syringe IV (19:49)
[2024-04-21] MEDS: 0.9% Normal Saline (1000mL) 1,000 ML 125 ML IV (19:49)
[2024-04-21] MEDS: Ketorolac 15 MG/ML Vial 10 MG IV (19:50)
[2024-04-21] MEDS: Ondansetron 4 MG/2 ML Vial IV (19:50)
[2024-04-21 20:00] VITALS: BP 138/69; PULSE 87; RESP 18; TEMP 37.3; O2SAT 92
[2024-04-21] MEDS: MethylPREDNISolone 125 MG/2 ML Vial IV (20:00)
[2024-04-21 20:04] VITALS: BP 143/63; PULSE 90; RESP 16; O2SAT 94
[2024-04-21 20:18] LABS: Absolute Lymphocyte Count 0.46 X10^3/uL (0.83-4.51); Absolute Neutrophil Count 6.5 X10^3/uL (2.0-7.7); Basophil# 0.02 X10^3/uL; Basophil% 0.2 % (0-1); Eosinophil# 0.05 X10^3/uL; Eosinophils% 0.6 % (0-5); Hemoglobin 13.2 g/dL (13.0-16.5); Lymphocyte # 0.46 X10^3/ul (0.83-4.51); Lymphocyte % 5.6 % (19-41); Mean Corp Hgb Conc 33.8 g/dL (32-36); Mean Corpuscular Hgb 32.4 pg (27.0-32.0); Mean Corpuscular Volume 95.6 fL (80-94); Mean Platelet Vol. 8.8 fl (6.2-12.0); Monocyte# 1.23 X10^3/uL; Monocyte% 14.9 % (0-10); NRBC Flagged by Analyzer 0 % (0-5); Neutrophil # 6.47 X10^3/uL (2.7-7.7); Neutrophil % 78.5 % (47-70); POSITIVE DIFFERENTIAL YES; Platelet Count 193 K/mm3 (150-450); Red Blood Count 4.08 M/mm3 (4.6-6.2); White Blood Count 8.3 K/mm3 (4.4-11.0)
[2024-04-21 21:01] LABS: ALB/GLOB Ratio 0.9 RATIO (0.9-2.4); AST(SGOT) 41 U/L (15-37); Alanine Aminotransfer ALT/SGPT 45 U/L (16-61); Albumin, Serum 2.9 g/dL (3.2-5.0); Alkaline Phosphatase 127 U/L (45-117); Anion Gap 6 (5-15); BUN 21 mg/dL (7-18); BUN/Creat Ratio 17.9 RATIO (10-20); Calcium,Total 8.1 mg/dL (8.5-10.1); Chloride 100 mmol/L (98-107); Creatinine, Serum 1.17 mg/dL (0.70-1.30); EST Glomerular Filtration Rate 63 mL/min (>60); Est Glom Filt Rate - Afr Amer 77 mL/min (>60); Estimated Creatinine Clearance 52.18 ml/min; Globulin 3.3 g/dL (2.2-4.2); Glucose 129 mg/dL (74-106); Potassium 4.3 mmol/L (3.5-5.1); Protein, Total 6.2 g/dL (6.4-8.2); Sodium Level 131 mmol/L (136-145)
--- NOTE | 2024-04-21 21:31 | US_ITS ---
INDICATION: pain, elevated bilirubin EXAMINATION: Ultrasound US Abdomen RUQ (limited) TECHNIQUE: Currie scale and color doppler imaging was performed of the right upper quadrant. COMPARISON: Prior study dated: CT 04/20/2024 FINDINGS: LIVER: The liver is normal in size, shape, and echogenicity. No focal hepatic lesion. No intrahepatic biliary ductal dilatation. There is no free fluid. GALLBLADDER AND BILIARY TREE: Normally distended gallbladder. No shadowing gallstone, pericholecystic fluid or gallbladder wall thickening. The proximal common bile duct measures 0.3 cm, which is within normal limits for the patient''s age. Songraphic Tineo''s sign: Negative. PANCREAS: No focal abnormality is demonstrated in the pancreas. No pancreatic ductal dilatation. RIGHT KIDNEY: The right kidney measures 10.2 cm. No hydronephrosis or nephrolithiasis. Simple renal cysts are present measuring up to 1.6 cm the midpole. No specific follow-up recommended. US/Gallbladder IMPRESSION: No acute sonographic abnormality is demonstrated in the right upper quadrant. Electronically Signed: Viral Matthews MD at 22:16 EDT Reading Location ID and State: [id number] [facility] Tel , Service support ,
[2024-04-21 22:00] VITALS: BP 138/68; PULSE 84; RESP 16; O2SAT 93
[2024-04-21] MEDS: metroNIDAZOLE 500 MG Tablet PO (23:52)
[2024-04-21] MEDS: Ciprofloxacin 500 MG Tablet PO (23:52)
[2024-04-22] VITALS: BP 133/87; PULSE 100; RESP 18; O2SAT 96
[2024-04-22 00:25] VITALS: BP 126/80; PULSE 96; RESP 17; TEMP 37.3; O2SAT 95
== END 2024-04-22 00:15 | disposition home or self-care (01) ==
PROVIDERS: Emergency Provider Emergency Medicine; PCP Internal Medicine; Visit Provider Emergency Medicine
DX: K50.00 Crohn's disease of small intestine without complications (principal); E78.00 Pure hypercholesterolemia, unspecified; I10 Essential (primary) hypertension; I25.10 Atherosclerotic heart disease of native coronary artery without angina pectoris; Z95.5 Presence of coronary angioplasty implant and graft; E03.9 Hypothyroidism, unspecified
CPT/HCPCS: 76705; 80053; 85025; 96361; 96374; 96375; 99284; J7030; A4216; J2405

== ENCOUNTER → 2024-04-25 | Outpatient (CLI) | payer MEDICARE, OTHER, SELFPAY ==
[2022-03-26 12:12] VITALS: BMI 28.0
[2024-04-25 12:22] LABS: Erythrocyte Sedimentation Rate 38 mm/hr (0-20)
[2024-04-25 12:28] LABS: Absolute Lymphocyte Count 0.67 X10^3/uL (0.83-4.51); Absolute Neutrophil Count 7.4 X10^3/uL (2.0-7.7); Basophil# 0.05 X10^3/uL; Basophil% 0.5 % (0-1); Eosinophil# 0.08 X10^3/uL; Eosinophils% 0.9 % (0-5); Hemoglobin 14.2 g/dL (13.0-16.5); Lymphocyte # 0.67 X10^3/ul (0.83-4.51); Lymphocyte % 7.2 % (19-41); Mean Corp Hgb Conc 33.8 g/dL (32-36); Mean Corpuscular Hgb 32.1 pg (27.0-32.0); Mean Platelet Vol. 8.6 fl (6.2-12.0); Monocyte# 0.85 X10^3/uL; Monocyte% 9.2 % (0-10); NRBC Flagged by Analyzer 0 % (0-5); Neutrophil # 7.42 X10^3/uL (2.7-7.7); Neutrophil % 79.9 % (47-70); Platelet Count 280 K/mm3 (150-450); RBC Distribution Width CV 12.1 % (11.6-14.6); RBC Distribution Width SD 42.1 fl (35.1-43.9); Red Blood Count 4.42 M/mm3 (4.6-6.2); White Blood Count 9.3 K/mm3 (4.4-11.0)
[2024-04-25 12:48] LABS: Vitamin B12 1073 pg/mL (211-911); Vitamin D,25 Hydroxy 39.1 ng/mL
[2024-04-25 13:33] LABS: ALB/GLOB Ratio 0.9 RATIO (0.9-2.4); AST(SGOT) 72 U/L (15-37); Alanine Aminotransfer ALT/SGPT 68 U/L (16-61); Alkaline Phosphatase 109 U/L (45-117); Anion Gap 7 (5-15); BUN 23 mg/dL (7-18); BUN/Creat Ratio 22.3 RATIO (10-20); Calcium,Total 8.5 mg/dL (8.5-10.1); Chloride 103 mmol/L (98-107); Creatinine, Serum 1.03 mg/dL (0.70-1.30); EST Glomerular Filtration Rate 73 mL/min (>60); Est Glom Filt Rate - Afr Amer 89 mL/min (>60); Ferritin 568 ng/mL (26-388); Globulin 3.4 g/dL (2.2-4.2); Glucose 130 mg/dL (74-106); Iron 99 ug/dL (65-175); Iron Binding Capacity,Total 307 ug/dL (250-450); LDH 177 U/L (87-241); PERCENT IRON SATURATION 32.2 % (15.0-55.0); Potassium 4.2 mmol/L (3.5-5.1); Protein, Total 6.4 g/dL (6.4-8.2); Sodium Level 135 mmol/L (136-145)
--- NOTE | 2024-04-25 17:23 | STRESSREP_ITS ---
Stress Test Report Pharmacologic myocardial perfusion stress test. 83-year-old male with a history of previous LAD disease Resting EKG demonstrates normal sinus rhythm with a rate of 63 bpm. Resting blood pressure is 138/80 mmHg. 0.4 mg of regadenoson was infused per usual protocol followed by rapid intravenous saline flush injection. Continuous EKG monitoring was performed. The maximum heart rate was 92 bpm which was 66% of max impacted heart rate the maximum workload was 1 metabolic equivalent. At rest there were no ST or T wave changes noted to suggest ischemia and at peak infusion nonspecific ST changes were noted which did not meet the criteria for ischemia. No clinical angina is noted. The final blood pressure was 144/78 mmHg. Myocardial perfusion protocol. 11.8 mCi of technetium 99m sestamibi was injected at rest. 0.4 mg of regadenoson was infused per usual protocol. At peak infusion 34.3 mCi of technetium 99m sestamibi was injected stress images were obtained stress and rest images were reconstructed and compared in the short axis vertical long and horizontal long axis. Gated images were also obtained. Perfusion SPECT analysis: Review of the stress images demonstrate normal uptake of tracer noted in all areas of the myocardium. A small area in the anteroseptal wall does demonstrate lack of perfusion. The resting images similar demonstrated normal uptake of tracer noted in all areas of the myocardium. There is an area persistent in the anterior septal wall with reduced perfusion. Previous anteroseptal infarct c annot be completely excluded. Conclusion: Normal pharmacologic myocardial perfusion stress test.
[2024-04-26 12:09] LABS: Anti-Centromere B Ab <0.2 AI (0.0-0.9); Anti-Chromatin <0.2 AI (0.0-0.9); Anti-Jo <0.2 AI (0.0-0.9); Anti-Scleroderma-70 AB <0.2 AI (0.0-0.9); Anti-dsDNA Ab <1 IU/mL (0-9); RNP Ab <0.2 AI (0.0-0.9); SJOGREN'S Anti-SS-A test < 0.2 AI (0.0-0.9); SJOGREN'S Anti-SS-B test < 0.2 AI (0.0-0.9); Smith Ab <0.2 AI (0.0-0.9)
[2024-04-30 10:42] LABS: ACCA 21 units (0-90); ALCA 35 units (0-60); AMCA 121 units (0-100); Albumin 3.3 g/dL (2.9-4.4); Alpha-1-Globulins 0.3 g/dL (0.0-0.4); Alpha-2-Globulins 0.9 g/dL (0.4-1.0); Cytoplasmic Ab (C-ANCA) <1:20 titer (Neg:<1:20); Endomysial Antibody IgA Negative (Negative); Gamma Globulin 0.5 g/dL (0.4-1.8); Immunoglobulin A 192 mg/dL (61-437); Immunoglobulin E 54 IU/mL (6-495); Immunoglobulin G 614 mg/dL (603-1613); Immunoglobulin M 57 mg/dL (15-143); PROEL- TOTAL PROTEIN 5.8 g/dL (6.0-8.5); Perinuclear Ab (P-ANCA) <1:20 titer (Neg:<1:20); gASCA 34 units (0-50); t-Transglutaminase IgA <2 U/mL (0-3)
== END | disposition home or self-care (01) ==
PROVIDERS: Student in an Organized Health Care Education/Training Program; PCP Internal Medicine; Referring Provider Nurse Practitioner Family; Visit Provider Nurse Practitioner Family
DX: R07.9 Chest pain, unspecified (principal); K50.00 Crohn's disease of small intestine without complications; Z95.5 Presence of coronary angioplasty implant and graft; I10 Essential (primary) hypertension; E78.00 Pure hypercholesterolemia, unspecified; E61.1 Iron deficiency
CPT/HCPCS: 36415; 78452; 80053; 82306; 82607; 82728; 82746; 82784; 82785; 83516; 83540; 83550; 83615; 84165; 85025; 85652; 86036; 86140; 86225; 86235; 86255; 86256; 86334; 86671; 93017; A9500; J2785

== ENCOUNTER → 2024-04-27 | Outpatient (CLI) | payer MEDICARE, OTHER, SELFPAY ==
[2022-03-26 12:12] VITALS: BMI 28.0
[2024-04-30 10:42] LABS: Calprotectin, Stool 507 ug/g (0-120)
[2024-05-03 11:59] LABS: HEPATITIS B SURFACE AG Negative (Negative); Hep C Antibodies Non Reactive (Non Reactive); Hepatitis A IgM Antibody Negative (Negative); Hepatitis B Core AB IgM Negative (Negative); Pancreatic Elastase, Fecal > 800 (>200); QNTFERON TB Mitogen Value > 10.00 IU/mL (.); QNTFERON TB Nil Value 0 IU/mL (.); QNTFERON TB1+ Ag Value 0 IU/mL (.); QNTFERON TB2+ Ag Value 0.13 IU/mL (.); QNTIFERON TB Positive Criteria Negative (Negative)
== END | disposition home or self-care (01) ==
PROVIDERS: PCP Internal Medicine; Referring Provider Student in an Organized Health Care Education/Training Program; Visit Provider Student in an Organized Health Care Education/Training Program
DX: R74.8 Abnormal levels of other serum enzymes (principal); K50.00 Crohn's disease of small intestine without complications; R17 Unspecified jaundice
CPT/HCPCS: 80074; 82653; 83630; 83993; 86480; 87177; 87209; 87493

== ENCOUNTER → 2024-04-29 | Outpatient (CLI) | payer MEDICARE, OTHER, SELFPAY ==
[2022-03-26 12:12] VITALS: BMI 28.0
--- NOTE | 2024-04-29 14:48 | CT_ITS ---
HISTORY: Crohn''s disease-- with enterography. TECHNIQUE: Helically acquired images were obtained of the abdomen and pelvis after the intravenous administration of 100mL Isovue-370. A radiation dose optimization technique was used for this scan. 873 images. COMPARISON: US 04/21/2024, CT 04/20/2024. FINDINGS: LOWER CHEST: Lung bases clear. Coronary artery calcification present. BOWEL: Small linear metallic object in the stomach again seen. Resolution of terminal ileal wall thickening and mesenteric stranding. Bowel nondilated. Appendix not visualized. Colonic diverticulosis without focal inflammatory change observed. PERITONEUM: No significant ascites. Decreased prominence of right lower quadrant mesenteric lymph nodes. LIVER: No enhancing mass. GALLBLADDER/BILIARY TREE: Gallbladder present. SPLEEN/PANCREAS/ADRENAL GLANDS: Homogeneous and nonenlarged. KIDNEYS: No hydronephrosis. Bilateral cysts measuring up to 5.8 cm on the left again seen. 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 Atherosclerosis of the abdominal aorta and its major branches. PELVIC ORGANS: Unremarkable. ABDOMINAL WALL: Small fat-containing inguinal hernias BONES: Mild degenerative change. CT/Abdomen/Pelvis WITH Contrast IMPRESSION: Interval resolution of terminal ileitis. Colonic diverticulosis without acute diverticulitis. Other chronic findings as above. Electronically Signed: Shawnee Romano MD at 9:51 EDT ,
== END | disposition home or self-care (01) ==
LOC: CT 14:46
PROVIDERS: PCP Internal Medicine; Referring Provider Student in an Organized Health Care Education/Training Program; Visit Provider Student in an Organized Health Care Education/Training Program
DX: K50.00 Crohn's disease of small intestine without complications (principal)
CPT/HCPCS: 74177; Q9967

== ENCOUNTER 2024-05-02 05:25 | Day surgery (SDC) | payer MEDICARE, OTHER, SELFPAY ==
[2022-03-26 12:12] VITALS: BMI 28.0
[2024-05-02] VITALS (8 sets, daily range): BP systolic 90–129; BP diastolic 40–78; PULSE 67–77; RESP 16; TEMP 36.2–36.4; O2SAT 96–98; BMI 27.1
[2024-05-02] MEDS: Lactated Ringers 1,000 ML 15 ML IV (06:14)
--- NOTE | 2024-05-02 06:30 | COLBX_PTH ---
PATIENT: IMANI MORA LOC: EN U#:[id number] AGE/SX: 83/M ROOM: RE05/02/[address]: Dr. Te Leiva DO : 1940 BED: DIS: 05/02/2024 SPEC #: [id number] RECD: 05/02/24 12:40 STATUS: JAQUAN REEli #: [id number] CATY: 05/02/24 06:[address]: Te Leiva DEPT: SURGICAL PATHOLOGY RECD BY: Karina Camara ENTERED: 05/02/24 13:19 SP TYPE: COLON BX OT DR: Dr. Tania Jackson MD Tissues: A - Ileum, NOS B - COLON BIOPSY Procedures: Surgery Specimen Level IV HEADER OPERATION: Colonoscopy with biopsies PRE-OP DIAGNOSIS: Crohn's disease of small intestine without complications TISSUE SUBMITTED: A- Terminal ileum biopsy, B- Random colon biopsy MICROSCOPIC DIAGNOSIS A. Terminal ileum, biopsy: Fragments of small intestinal mucosa with focal ulceration, moderate acute and chronic inflammation and granulation tissue reaction. See comment. B. Colon, random biopsy: Fragments of colonic mucosa, no pathologic diagnosis. [facility] 05/03/2024 COMMENT A. Significant glandular distortion or granulomas are not seen. Correlation with clinical, endoscopic findings and appropriate follow up are necessary. MICROSCOPIC DESCRIPTION Slides are reviewed. GROSS DESCRIPTION A. Received in fixative is one container labeled with the patient's name and designated Terminal ileum biopsy. The specimen consists of multiple irregular fragments of light sellers soft tissue that in aggregate measure 1.2 x 0.4 x 0.1 cm. The specimen is totally submitted in one cassette. B. Received in fixative is one container labeled with the patient's name and designated Random colon biopsy. The specimen consists of multiple irregular fragments of light sellesr soft tissue that in aggregate measure 1.8 x 0.6 x 0.1 cm. The specimen is totally submitted in one cassette. [facility] 05/02/2024 TC:2 CPT:95061e1
--- NOTE | 2024-05-02 06:32 | HP.PCM_ITS ---
History and Physical Date of Admission: 05/02/24 OV 04.25.24 Pt here for f/u from ED for abdominal pain. Pt reports he has not had abdominal pain or constipation like he did when he went to the ED. He feels that maybe some of his issues is from crohn's. States he is very bloated feeliHe denies blood in stool, vomiting, or constipation. Takes hyoscyamine, gabapentin, ondansetron, pantoprazole, rosuvastatin and prednisone. [facility]LY [facility] Medical History Elevated liver enzymes Elevated C-reactive protein (CRP) Abnormal colonoscopy Rosacea Psoriasis Loss of hearing High cholesterol History of Crohn's disease Non-smoker History of echocardiogram History of stress test Cardiology follow-up encounter Abdominal pain Electrolyte abnormality Acute maxillary sinusitis, unspecified Viral syndrome Malaise and fatigue Macrocytosis HTN (hypertension) Debility Vertigo CHERELLE (acute kidney injury) CAD (coronary artery disease) Wears hearing aid Wears glasses Prostate disease Back pain Migraine headache History of hiatal hernia CPAP (continuous positive airway pressure) dependence Asthma Umbilical hernia Lumbar back pain with radiculopathy affecting right lower extremity Piriformis syndrome Degenerative disc disease Bilateral knee pain 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 Thyroid disease Essential hypertension Anxiety Atherosclerotic heart disease of [place] coronary artery with other forms of angina pectoris EH (obstructive sleep apnea) Crohns disease Nonrheumatic tricuspid (valve) insufficiency Hypothyroidism Arthritis BPH (benign prostatic hyperplasia) Long-term current use of high risk medication other than anticoagulant Restless leg syndrome Hyperlipidemia Gastroesophageal reflux disease Surgical History History of umbilical hernia repair (~2013) History of partial colectomy (~1993) History of cardiac catheterization History of bilateral cataract extraction S/P umbilical hernia repair, follow-up exam Hx of tonsillectomy History of coronary artery stent placement (09/07/18) H/O vasectomy History of left heart catheterization (11/12/18) History of prostate surgery Hx of appendectomy H/O hemorrhoidectomy (~1989) eye lesion removal Family History Grandfather CVA (cerebral vascular accident) DepressionBrother COPD (chronic obstructive pulmonary disease)Grandmother DepressionSon ArthritisFather Arthritis CAD (coronary artery disease)Mother Hypertension Hyperlipidemia PacemakerOther Cancer Social History household members: spouse housing: house current occupational status: retired pets and animals: No Smoking Status: Never smoker second hand exposure: No alcohol intake: never substance use type: does not use caffeine: No what type of physical activity do you participate in: walking frequency: 5-6 times per week HPI HPI Chief Complaint: ED follow up Details: IMANI MORA, is a 83 M who presents to the office today for establishment with [facility] after ED visit for severe abdominal pain. He was found to have possible crohns disease on CT. He was discharged from the ED with prednisone 40 daily, Cipro and Flagyl. CT abdomen/Pelvis 04.20.24 Mild wall thickening of the terminal ileum with adjacent mesenteric stranding.Bilateral renal cysts.Stable focal infrarenal abdominal aortic dissection. Biochemical work up 04.20.24: Na 131, BUN 21, Ca 8.1, WBC 8.3, RBC 4.08 OV 8.5.24 He continues to have some abdominal pain but not as bad as it was previously. He tells me he was diagnosed with Crohns in the when Dr. Cummings took out his appendix the biopsy came back positive for Crohns. He has not had any GI issues prior to when this all recently started. When he is having the pain he will also get some diarrhea. Along with these symptoms he has been very fatigued. He recently started seeing a dietitian and eating vegetable like cabbage and broccoli. He is nervous these veggies might irratate his colon more. He denies melena, hematochezia, n/v, weight loss, rash, joint pain fever or hematemesis. ROS Const Constitutional: Positive for weight change; No fatigue or fever(s) ENT ENT: No difficulty swallowing Gastro GI: Positive for abdominal pain, bloating, change in bowel habits, diarrhea and excessive flatus; No belching, change in stool character, coffee ground emesis, constipation, cramping, heartburn, difficulty swallowing, feeling full early, incontinent of stools, Vomiting blood/hematemesis, Blood in stool, loose stools, Black,tarry stools, nausea/dyspepsia, pain with swallowing, vomiting or other Musc Musculoskeletal: Positive for joint pain, back pain, muscle cramps, muscle weakness, numbness, tingling, Arthritis, sciatica, restless legs and leg pain at night Skin Skin: No yellowing of the eye or itchy eyes Neuro Neurology: Positive for numbness, tingling and restless legs Psych Psychiatric: No anxiety and No depression Endo Endocrine: Positive for weight change; No fatigue Aller/Imm Allergy/Immunologic: No itchy eyes Cl/Lymp Hematologic/Lymphatic: No easy bleeding or easy bruising Exam Const General: cooperative and comfortable Nutritional Appearance: average body habitus and well nourished HENOK Head: normal to inspection Ears: hearing grossly normal bilaterally Nose: external nose normal Face and sinus: normal facial exam Mouth: oral mucosae normal Throat: posterior oropharynx normal Eyes General: appearance normal, both eyes and all related structures Neck Neck: normal visual inspection Chest Chest palpation & inspection: normal inspection of the chest and normal palpation of entire chest wall Resp Effort & Inspection: normal respiratory effort Auscultation: Bilateral: Clear to Auscultation Cardio Palpation: normal PMI Rate: regular rate Rhythm: regular rhythm GI Inspection: normal to inspection Auscultation: normal bowel sounds Percussion: normal to percussion Palpation: no hepatosplenomegaly Skin General: no rashes or lesions noted Neuro General: patient alert Extrem General: normal to inspection Psych Affect: normal affect Assessment and Plan Assessment and Plan (1) Crohn's disease of small intestine without complications: Status: Acute Plan: Patient is here today for f/u after ED visit for abdominal pain that resulted in CT showing possible Crohns at the terminal ileum. Differenytail diagnosis includes Crohns, UC, viral enteritis, or IBD -We will order stool tests to rule out infection vs inflammation within the bowels -WIll order blood work for IBD, celiac, CBC, CMP, ESR, CMP and other autoimmune conditions -WIll consider CT enterography in the future once lab results are back -Last colonoscopy was in January 2024 with no abnormalities, I do not think another colonoscopy is indicated at this time -He will continue taking the prednisone, Cipro and Flagyl -Discussed with patient possible approached to treatment of Crohns, step up vs step down -Will call patient with results to discuss treatment plans Orders: Orders ANCA Today K50.00 - Crohn's disease of small intestine without complications CBC W/Diff, Automated Today K50.00 - Crohn's disease of small intestine without complications Celiac Disease Profile Today K50.00 - Crohn's disease of small intestine without complications Comprehensive Metabolic Profil Today K50.00 - Crohn's disease of small intestine without complications Ferritin Today E61.1 - Iron deficiency Erythrocyte Sed Rate Today K50.00 - Crohn's disease of small intestine without complications CRP Today K50.00 - Crohn's disease of small intestine without complications LDH Today K50.00 - Crohn's disease of small intestine without complications ENTERIC PATHOGEN PANEL STOOL Today K58.9 - Irritable bowel syndrome without diarrhea, R19.7 - Diarrhea, unspecified Calprotectin, Stool Today K50.00 - Crohn's disease of small intestine without complications CDIFF (PCR) Today K50.00 - Crohn's disease of small intestine without complications ANGIE + Protein Elect, Serum Today K50.00 - Crohn's disease of small intestine without complications IBD Expanded Profile Today K50.00 - Crohn's disease of small intestine without complications Pancreatic Elastase, Fecal Today K50.00 - Crohn's disease of small intestine without complications Ova and Parasites [id number] Today K58.9 - Irritable bowel syndrome without diarrhea Immunoglobulins G/A/M/E Today K50.00 - Crohn's disease of small intestine without complications Folates, (Folic Acid) Today K50.00 - Crohn's disease of small intestine without complications Vitamin D,25 Hydroxy Today K50.00 - Crohn's disease of small intestine without complications Vitamin B12 Today K50.00 - Crohn's disease of small intestine without complications Iron+Iron Binding Capacity Today K50.00 - Crohn's disease of small intestine without complications ELSA Comprehensive Panel Today Stool Lactoferrin/WBC Today K58.9 - Irritable bowel syndrome without diarrhea I have examined the patient and the H&P has been reviewed. There are no clinical changes since date of exam.
--- NOTE | 2024-05-02 06:33 | PCM.PRE.AN2 ---
ASA Classification* ASA Classification ASA Classification: 3 Assessment & Plan Anesthesia* Anesthesia Assessment Anesthesia Assessment: Discussed sedation and/or anesthesia options, risks, benefits, and alternatives with patient/parents/legal guardian/POA. Questions invited. The patient/parents/legal guardian/POA seems to understand and agrees to proceed with anesthesia plan. Reviewed the physical assessment, medical history, allergy history and patient home medications list prior to surgery/procedure/anesthetic and documented any changes. Performed airway and anesthesia risk assessments. Anesthesia Type Anesthesia Type: MAC History Source History Obtained from:: Patient and Chart Anesthesia Focused Assessment* Temperature: 97.6 F Pulse Rate: 67 Blood Pressure: 129/78 Respiratory Rate: 16 Pulse Ox: 96 Airway Assessment Mouth opens: >3 cm Mallampati Score: II Focused Labs Anesthesia Preop lab: CBC WBC 9.3 K/mm3 (4.4-11.0) 04/25/24 12:00 RBC 4.42 M/mm3 (4.6-6.2) L 04/25/24 12:00 Hgb 14.2 g/dL (13.0-16.5) 04/25/24 12:00 Hct 42.0 % (40-54) 04/25/24 12:00 Plt Count 280 K/mm3 (150-450) 04/25/24 12:00 CHEMISTRY Potassium 4.2 mmol/L (3.5-5.1) 04/25/24 12:00 Sodium 135 mmol/L (136-145) L 04/25/24 12:00 Magnesium 2.1 mg/dL (1.6-2.6) 01/05/24 10:40 Phosphorus 2.9 mg/dL (2.5-4.9) 01/05/24 10:40 BUN 23 mg/dL (7-18) H 04/25/24 12:00 Creatinine 1.03 mg/dL (0.70-1.30) 04/25/24 12:00 Glucose 130 mg/dL (74-106) H 04/25/24 12:00 TSH 1.17 uIU/mL (0.358-3.74) 12/16/23 09:32 COAG PT 13.6 SECONDS (11.7-14.9) 01/05/24 10:40 Pre-Assessment Diagnosis/Proposed Procedure Planned Operative Procedure(s): CSCOPE Anesthesia History Anesthesia History - 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 When Was Last Pacemaker Check QUESTION #4 FULL TEXT: You/Your Family Experience fever (hyperthermia) with Anesthesia Last Oral Intake Last Oral intake: Last Oral Intake NPO since 00:00 05/02/24 06:09 Meds taken in AM with sips of Yes 05/02/24 06:09 water? Meds patient instructed to losartan, isosorbide, 05/02/24 06:09 take am of surgery labetolol, pantropazole PONV PONV - electronic prepress system operator: PONV - electronic prepress system operator Female No 04/29/24 09:37 HX of Motion Sickness No 04/29/24 09:37 HX of N/V After Surgery No 04/29/24 09:37 Non-Smoker Yes 04/29/24 09:37 Duration of Surgery greater No 04/29/24 09:37 than 60 minutes Number of Risk Factors 1 04/29/24 09:37 PONV Score Low Risk 04/29/24 09:37 Height & Weight Height & Weight: Anesthesia: Height & Weight Height 5 ft 8 in 05/02/24 06:09 Weight: 81 kg 05/02/24 06:09 Body Mass Index (BMI) 27.1 05/02/24 06:09 Respiratory Assessment Respiratory Assessment - electronic prepress system operator: Respiratory Tract Infection Hx - electronic prepress system operator Hx Respiratory Tract Infection No 04/29/24 09:37 STOP Sleep Apnea STOP Sleep Apnea - electronic prepress system operator: STOP Sleep Apnea - electronic prepress system operator Hx Hypertension Yes: CONTROLLED WITH MED 04/29/24 09:37 Hx Sleep Apnea Yes 04/29/24 09:37 CPAP Yes: NONCOMPLIANT 04/29/24 09:37 BIPAP No 04/29/24 09:37 Do you snore loudly (louder than talking or can be heard Do you often feel tired/ fatigued/ sleepy during daytime? Has anyone observed you stop breathing during sleep? STOP Results Positive 04/29/24 09:37 QUESTION #5 FULL TEXT : Do you snore loudly (louder than talking or can be heard through closed doors)? Tobacco Use History Tobacco Use History - electronic prepress system operator: Tobacco Use History - electronic prepress system operator Tobacco Use Non-smoker 03/26/22 12:12 Smoking Status Never smoker 04/29/24 09:37 Hx Tobacco Use No 04/29/24 09:37 Years Smoking Packs Smoked per Day Smoking Cessation Date was within the last 15 years Hx Smoking Cessation Date Hx Smoking Cessation Counseling Hematologic Medial History Hematologic Hx - electronic prepress system operator: Hematologic Medical Hx - line supply Hx of Blood Transfusion No 04/29/24 09:37 Hx of Transfusion in last 3 No 04/29/24 09:37 Months Date of Last Transfusion (if within last 3 months) Ever experience any problems No 04/29/24 09:37 with transfusion(s)? Specify any problems Hx of Preganancy in last 3 N/A 04/29/24 09:37 Months Nurse Filling Out Transfusion DSCHRIBER 04/29/24 09:37 & Questions: Date: 04/29/24 04/29/24 09:37 Time: 09:39 04/29/24 09:37 Patient unable to answer at this time (ie. confused, unrespo /Reproduction History /Reproductive History - electronic prepress system operator: /Reproductive Hx- electronic prepress system operator Hx Now Gestational Age (in weeks): EDC: Hx Hx Para Hx Section SAB No 04/29/24 09:37 Active Medications Active Medications: Current Medications Generic Name Dose Route Start Last Admin Trade Name Freq PRN Reason Stop Dose Admin Lactated Ringer's 1,000 mls @ 15 mls/hr 05/02/24 05:45 05/02/24 06:14 IV 15 mls/hr .Q48H ABHIJEET Administration PFSH Medical History History of Holter monitoring History of ulceration Elevated liver enzymes Elevated C-reactive protein (CRP) Rosacea Psoriasis Loss of hearing High cholesterol History of Crohn's disease Non-smoker History of echocardiogram History of stress test Cardiology follow-up encounter Abdominal pain Electrolyte abnormality Acute maxillary sinusitis, unspecified Viral syndrome Malaise and fatigue Macrocytosis HTN (hypertension) Debility Vertigo CHERELLE (acute kidney injury) CAD (coronary artery disease) Wears hearing aid Wears glasses Prostate disease Back pain Migraine headache History of hiatal hernia CPAP (continuous positive airway pressure) dependence Asthma Umbilical hernia Lumbar back pain with radiculopathy affecting right lower extremity Piriformis syndrome Degenerative disc disease Bilateral knee pain 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 Thyroid disease Essential hypertension Anxiety Atherosclerotic heart disease of [place] coronary artery with other forms of angina pectoris EH (obstructive sleep apnea) Crohns disease Nonrheumatic tricuspid (valve) insufficiency Hypothyroidism Arthritis BPH (benign prostatic hyperplasia) Long-term current use of high risk medication other than anticoagulant Restless leg syndrome Hyperlipidemia Gastroesophageal reflux disease Home Medications ?Medication ?Instructions ?Recorded ?Last Taken ?Type aspirin 81 mg chewable tablet 81 mg PO QHS Heart 03/20/14 04/28/24 History multivitamin with folic acid 400 1 tab PO DAILY Vitamin 03/20/14 05/01/24 History mcg tablet coenzyme Q10 75 mg capsule (Ultra 30 mg PO DAILY pain 06/01/19 05/01/24 History CoQ10) wheat dextrin 3 gram/3.5 gram oral 1 ea PO DAILY supplement 09/26/19 05/01/24 History powder packet diclofenac sodium 1 % topical gel 2 g topical PRN PRN Pain 07/30/21 Unknown History testosterone cypionate 100 mg/mL 100 mg IM Q2W hormone #10 mL 10/29/21 Unknown History intramuscular oil apple cider vinegar 600 mg capsule 600 mg PO DAILY pain 02/11/22 05/01/24 History cinnamon bark 500 mg capsule 1,000 mg PO DAILY pain 02/11/22 05/01/24 History (Cinnamon) bilberry 100 mg capsule 1,000 mg PO QHS Eye function 10/31/22 05/01/24 History ipratropium bromide 42 mcg (0.06 2 spray intranasal DAILY PRN 10/31/22 05/01/24 History %) nasal spray Congestion lactobacillus combination no.4 15 15,000 mmu cells PO DAILY 01/12/23 05/01/24 History billion cell capsule (Senior Probiotic) ketoconazole 2 % shampoo 1 applic topical DAILY 07/08/23 05/01/24 History nitroglycerin 0.4 mg sublingual 0.4 mg sublingual Q5M PRN chest 09/01/23 Unknown Rx tablet pain #25 tabs rosuvastatin 5 mg tablet 5 mg PO QHS cholesterol #90 tabs 12/14/23 05/01/24 Rx levothyroxine 112 mcg tablet 112 mcg PO QHS Thyroid 02/10/24 05/01/24 History ferrous sulfate 325 mg (65 mg 325 mg PO Q OTHER DAY #90 tabs 02/19/24 05/01/24 Rx iron) tablet,delayed release gabapentin 300 mg capsule 300 mg PO DAILY #90 caps 02/19/24 05/01/24 Rx gabapentin 600 mg tablet 600 mg PO QHS 3 months #90 tabs 02/19/24 05/01/24 Rx pantoprazole 40 mg tablet,delayed 40 mg PO DAILY #90 tabs 02/19/24 05/02/24 Rx release losartan 50 mg tablet 25 mg (1/2 x 50 mg) PO BID blood 04/11/24 05/02/24 Rx pressure #0 tabs isosorbide mononitrate 60 mg 60 mg PO BID patient cannot cut 04/12/24 05/02/24 Rx tablet,extended release 24 hr the 120 mg tablet in half #180 tabs labetalol 200 mg tablet 200 mg PO BID Blood pressure #180 04/13/24 05/02/24 Rx tabs hyoscyamine sulfate 0.125 mg 0.125 mg PO Q6H 5 days #20 tabs 04/20/24 05/01/24 Rx tablet (Levsin) ondansetron 4 mg disintegrating 4 mg PO Q8H PRN nausea and 04/20/24 Unknown Rx tablet vomiting 5 days #15 tabs ciprofloxacin HCl 500 mg tablet 500 mg PO BID #14 TABLETS 04/21/24 05/01/24 Rx hydrocodone-acetaminophen 5-325mg 1 tab PO Q6H PRN PRN Pain 4 days 04/21/24 05/01/24 Rx 5mg-325mg #15 TABLETS metronidazole 500 mg tablet 500 mg PO BID #14 tabs 04/21/24 05/01/24 Rx prednisone 20 mg tablet 40 mg (2 x 20 mg) PO DAILY 2 weeks 04/26/24 05/01/24 Rx #28 TABLETS Allergy/AdvReac Type Severity Reaction Status Date / Time amlodipine (From Norvasc) AdvReac Intermediate upset Verified 04/29/24 09:35 stomach amoxicillin (From Augmentin) AdvReac Intermediate Nausea/Vom/ Verified 04/29/24 09:35 Diarrhea clavulanic acid (From AdvReac Intermediate Nausea/Vom/ Verified 04/29/24 09:35 Augmentin) Diarrhea lisinopril AdvReac Intermediate cough Verified 04/29/24 09:35 atorvastatin (From Lipitor) AdvReac Pain in Verified 04/29/24 09:35 joints gemfibrozil (From Lopid) AdvReac Pain in Verified 04/29/24 09:35 joints niacin AdvReac Other Verified 04/29/24 09:35 Family History Grandfather CVA (cerebral vascular accident) Depression Brother COPD (chronic obstructive pulmonary disease) Grandmother Depression Son Arthritis Father Arthritis CAD (coronary artery disease) Mother Hypertension Hyperlipidemia Pacemaker Other Cancer Surgical History Hx of colonoscopy History of umbilical hernia repair (~2013) History of partial colectomy (~1993) History of bilateral cataract extraction S/P umbilical hernia repair, follow-up exam Hx of tonsillectomy History of coronary artery stent placement (09/07/18) H/O vasectomy History of left heart catheterization (11/12/18) History of prostate surgery Hx of appendectomy H/O hemorrhoidectomy (~1989) eye lesion removal Social History household members: spouse housing: house current occupational status: retired pets and animals: No Smoking Status: Never smoker second hand exposure: No alcohol intake: never substance use type: does not use caffeine: No what type of physical activity do you participate in: walking frequency: 5-6 times per week Review of Systems (Anesthesia) ROS Narrative System reviewed and no additional complaints, except as documented.
--- NOTE | 2024-05-02 07:01 | OP.CCLET_ITS ---
05/02/2024 Tania Jackson MD [address] [place] [address] [place] [address] Re : Colonoscopy procedure for Chapo Miner Dear Dr. Jackson This procedure was performed on Thursday, May 02, 2024. My impressions and recommendations are as follows: Impressions : - Simple Endoscopic Score for Crohn's Disease: 10, mucosal inflammatory changes secondary to Crohn's disease. Biopsied. - Patent end-to-end ileo-colonic anastomosis, characterized by healthy appearing mucosa. Recommendations : - Discharge patient to home. - Resume previous diet. - Continue present medications. - Await pathology results. - Repeat colonoscopy is recommended for surveillance. The colonoscopy date will be determined after pathology results from today's exam become available for review. My findings are described in the full procedure note, which is enclosed. If I can be of further assistance, please feel free to contact me at . Sincerely, Te Leiva, 05/02/2024 6:59:55 AM This report has been signed electronically.
--- NOTE | 2024-05-02 07:01 | OP.COLON_ITS ---
Patient Name: Chapo Miner Procedure Date: 05/02/2024 6:16 AM Date of : 1940 Age: 83 Procedure: Colonoscopy Indications: Crohn's disease of the small bowel, Disease activity assessment of Crohn's disease of the small bowel Providers: Te Leiva DO Medicines: Monitored Anesthesia Care Patient Profile: This is an 83 year old male. Refer to note in patient chart for documentation of history and physical. Last Colonoscopy: within the past 6 months. Complications: No immediate complications. Procedure: Pre-Anesthesia Assessment: - Prior to the procedure, a History and Physical was performed, and patient medications and allergies were reviewed. The patient is competent. The risks and benefits of the procedure and the sedation options and risks were discussed with the patient. All questions were answered and informed consent was obtained. Patient identification and proposed procedure were verified by the physician in the pre-procedure area. Mental Status Examination: alert and oriented. Airway Examination: normal oropharyngeal airway and neck mobility. Respiratory Examination: clear to auscultation. CV Examination: normal. Prophylactic Antibiotics: The patient does not require prophylactic antibiotics. Prior Anticoagulants: The patient has taken no anticoagulant or antiplatelet agents except for NSAID medication. ASA Grade Assessment: II - A patient with mild systemic disease. After reviewing the risks and benefits, the patient was deemed in satisfactory condition to undergo the procedure. The anesthesia plan was to use monitored anesthesia care (MAC). Immediately prior to administration of medications, the patient was re-assessed for adequacy to receive sedatives. The heart rate, respiratory rate, oxygen saturations, blood pressure, adequacy of pulmonary ventilation, and response to care were monitored throughout the procedure. The physical status of the patient was re-assessed after the procedure. After I obtained informed consent, the scope was passed under direct vision. Throughout the procedure, the patient's blood pressure, pulse, and oxygen saturations were monitored continuously. The Colonoscope was introduced through the anus and advanced to the terminal ileum. The colonoscopy was performed without difficulty. The patient tolerated the procedure well. The quality of the bowel preparation was adequate. The terminal ileum was photographed. Scope In: 6:44:05 AM Scope Withdrawal Time 0 hours 5 minutes 4 seconds Scope Out: 6:53:06 AM Total Procedure Duration Time 0 hours 9 minutes 1 second Findings: The perianal and digital rectal examinations were normal. The Simple Endoscopic Score for Crohn's Disease was determined based on the endoscopic appearance of the mucosa in the following segments: - Ileum: Findings include ulcers greater than 2 cm in size, greater than 30% ulcerated surfaces, 50-75% of surfaces affected and multiple narrowings that can be passed. Segment score: 10. - Right Colon: Findings include no ulcers present, no ulcerated surfaces, no affected surfaces and no narrowings. Segment score: 0. - Transverse Colon: Findings include no ulcers present, no ulcerated surfaces, no affected surfaces and no narrowings. Segment score: 0. - Left Colon: Findings include no ulcers present, no ulcerated surfaces, no affected surfaces and no narrowings. Segment score: 0. - Rectum: Findings include no ulcers present, no ulcerated surfaces, no affected surfaces and no narrowings. Segment score: 0. - Total SES-CD aggregate score: 10. Biopsies were taken with a cold forceps for histology. Verification of patient identification for the specimen was done. Estimated blood loss was minimal. There was evidence of a prior end-to-end ileo-colonic anastomosis in the ascending colon. This was patent and was characterized by healthy appearing mucosa. Multiple small-mouthed diverticula were found in the recto-sigmoid colon and sigmoid colon. Impression: - Simple Endoscopic Score for Crohn's Disease: 10, mucosal inflammatory changes secondary to Crohn's disease. Biopsied. - Patent end-to-end ileo-colonic anastomosis, characterized by healthy appearing mucosa. Recommendation: - Discharge patient to home. - Resume previous diet. - Continue present medications. - Await pathology results. - Repeat colonoscopy is recommended for surveillance. The colonoscopy date will be determined after pathology results from today's exam become available for review. Procedure Code(s): --- Professional --- 80224, Colonoscopy, flexible; with biopsy, single or multiple CPT copyright 2021 [employer]. All rights reserved. The codes documented in this report are preliminary and upon certified coder review may be revised to meet current compliance requirements. Te Leiva DO 05/02/2024 6:59:55 AM This report has been signed electronically. Number of Addenda: 0 Note Initiated On: 05/02/2024 6:16 AM
--- NOTE | 2024-05-02 07:01 | PCM.POST.ANE ---
Anesthesia: Postop Eval I Current Vital Signs Temperature: 97.2 F Pulse Rate: 76 Blood Pressure: 93/54 Respiratory Rate: 16 Pulse Ox: 98 Oxygen Delivery Method: Room Air Assessment Airway patent: Yes Spontaneous unlabored respirations: Yes Mental status: Asleep nausea: No Vomiting: No Anesthesia Complication: No Fluid Hydration Crystalloid volume administer (ml): 600 Total IV fluid infused: 600 Progress Note Anesthesia document: Postop Eval 1 completed: Yes
--- NOTE | 2024-05-02 07:16 | PCM.POSTANE2 ---
Anesthesia Postop Eval I Sum Postop Eval Completion status Anesthesia document: Postop Eval 1 completed: Yes Anesthesia Postop Eval I Summary Anesthesia Postop Eval I Summary: Anesthesia Postop Eval I: Assessment Summary Airway patent Yes 05/02/24 07:01 [email or web address] Spontaneous unlabored Yes 05/02/24 07:01 [email or web address] respirations Mental status Asleep 05/02/24 07:01 [email or web address] nausea No 05/02/24 07:01 [email or web address] Vomiting No 05/02/24 07:01 [email or web address] Anesthesia Postop Eval I: Fluid Summary Crystalloid volume administer 600 05/02/24 07:01 [email or web address] (ml) Colloids volume administered ( ml) Blood Product volume administered (ml) Total IV fluid infused 600 05/02/24 07:01 [email or web address] Anesthesia Postop Eval I: Summary Notes Anesthesia Complication No 05/02/24 07:01 [email or web address] Anesthesia Complication Comment: Post-operative progress note Anesthesia: Postop Eval II Evaluation Mental status: Awake Pain Level: 0 nausea: No Vomiting: No Complications Anesthesia Complication: No
== END 2024-05-02 07:57 | disposition home or self-care (01) ==
LOC: EN 05:25 → AC 05:26
PROVIDERS: PCP Internal Medicine; Referring Provider Internal Medicine; Visit Provider Internal Medicine Gastroenterology
PROC: 0DJD8ZZ Inspection of Lower Intestinal Tract, Via Natural or Artificial Opening Endoscopic (ICD-10-PCS; CPT 45378; principal; 2024-05-02 06:25)
DX: K63.3 Ulcer of intestine (principal); K50.00 Crohn's disease of small intestine without complications; I10 Essential (primary) hypertension; Z79.52 Long term (current) use of systemic steroids; E78.00 Pure hypercholesterolemia, unspecified; I25.10 Atherosclerotic heart disease of native coronary artery without angina pectoris; R53.83 Other fatigue; K21.9 Gastro-esophageal reflux disease without esophagitis; J45.909 Unspecified asthma, uncomplicated; Z90.49 Acquired absence of other specified parts of digestive tract; Z98.0 Intestinal bypass and anastomosis status; Z79.82 Long term (current) use of aspirin; Z79.890 Hormone replacement therapy; Z79.899 Other long term (current) drug therapy; E03.9 Hypothyroidism, unspecified
CPT/HCPCS: 45380; 88305; J7120; J2405

== ENCOUNTER → 2024-05-03 | Outpatient (CLI) | payer MEDICARE, OTHER, SELFPAY ==
[2022-03-26 12:12] VITALS: BMI 28.0
[2024-05-05 05:07] LABS: HEPATITIS B SURFACE AG Negative (Negative); Hep C Antibodies Non Reactive (Non Reactive); Hepatitis A IgM Antibody Negative (Negative); Hepatitis B Core AB IgM Negative (Negative)
== END | disposition home or self-care (01) ==
LOC: MTLAB 15:57
PROVIDERS: PCP Internal Medicine; Referring Provider Student in an Organized Health Care Education/Training Program; Visit Provider Student in an Organized Health Care Education/Training Program
DX: R74.8 Abnormal levels of other serum enzymes (principal); K50.00 Crohn's disease of small intestine without complications; R17 Unspecified jaundice
CPT/HCPCS: 36415; 80074

== ENCOUNTER → 2024-05-04 | Outpatient (CLI) | payer MEDICARE, OTHER, SELFPAY ==
[2022-03-26 12:12] VITALS: BMI 28.0
== END | disposition home or self-care (01) ==
PROVIDERS: PCP Internal Medicine; Referring Provider Student in an Organized Health Care Education/Training Program; Visit Provider Student in an Organized Health Care Education/Training Program
DX: R10.9 Unspecified abdominal pain (principal); K59.00 Constipation, unspecified; R19.7 Diarrhea, unspecified

== ENCOUNTER → 2024-05-24 | Outpatient (CLI) | payer MEDICARE, OTHER, SELFPAY ==
[2022-03-26 12:12] VITALS: BMI 28.0
--- NOTE | 2024-05-24 11:17 | RAD_ITS ---
STUDY: X-RAY - CERVICAL SPINE REASON FOR EXAM: Male, 83 years old. Other cervical disc degeneration, unspecified cervical region TECHNIQUE: 3 view(s) of the cervical spine were obtained. COMPARISON: 02/08/2020 FINDINGS: Normal anterior atlantoaxial articulation. Normal odontoid process. Normal cervical lordosis. There is multi-level endplate spondylosis. There is multi-level degenerative disc disease with multilevel disc space narrowing. Normal visualized intervertebral neuroforamina. The soft tissue structures are unremarkable. 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 Electronically Signed: Narayan Baez MD at 8:26 EDT ,
== END | disposition home or self-care (01) ==
LOC: RAD 11:14
PROVIDERS: PCP Internal Medicine; Referring Provider Anesthesiology Pain Medicine; Visit Provider Anesthesiology Pain Medicine
DX: M50.30 Other cervical disc degeneration, unspecified cervical region (principal)
CPT/HCPCS: 72040

== ENCOUNTER → 2024-06-02 | Outpatient (CLI) | payer MEDICARE, OTHER, SELFPAY ==
[2022-03-26 12:12] VITALS: BMI 28.0
[2024-06-02 17:16] LABS: ALB/GLOB Ratio 1.1 RATIO (0.9-2.4); AST(SGOT) 20 U/L (15-37); Alanine Aminotransfer ALT/SGPT 37 U/L (16-61); Albumin, Serum 3.1 g/dL (3.2-5.0); Alkaline Phosphatase 75 U/L (45-117); Anion Gap 9 (5-15); BUN 44 mg/dL (7-18); BUN/Creat Ratio 34.4 RATIO (10-20); Calcium,Total 8.8 mg/dL (8.5-10.1); Chloride 103 mmol/L (98-107); Creatinine, Serum 1.28 mg/dL (0.70-1.30); EST Glomerular Filtration Rate 57 mL/min (>60); Est Glom Filt Rate - Afr Amer 69 mL/min (>60); Globulin 2.8 g/dL (2.2-4.2); Glucose 190 mg/dL (74-106); Protein, Total 5.9 g/dL (6.4-8.2); Sodium Level 136 mmol/L (136-145); T4 Free Direct 1.16 ng/dL (0.76-1.46); Thyroid Stim Hormone (TSH) 0.377 uIU/mL (0.358-3.740)
== END | disposition home or self-care (01) ==
LOC: BIMLAB 15:32
PROVIDERS: PCP Internal Medicine; Referring Provider Internal Medicine; Visit Provider Internal Medicine
DX: E03.9 Hypothyroidism, unspecified (principal); R74.8 Abnormal levels of other serum enzymes
CPT/HCPCS: 36415; 80053; 84439; 84443

== ENCOUNTER → 2024-06-03 | Outpatient (CLI) | payer MEDICARE, OTHER, SELFPAY ==
[2022-03-26 12:12] VITALS: BMI 28.0
--- NOTE | 2024-06-03 07:54 | CT_ITS ---
STUDY: CT CERVICAL SPINE WITHOUT CONTRAST REASON FOR EXAM: Male, 83 years old. Radiculopathy, cervical region RADIATION DOSAGE (If Supplied By Facility): CTDIvol = ( 18.34 ) mGy, DLP = ( 369.29 ) mGycm TECHNIQUE: High resolution transaxial imaging was performed without contrast material. Sagittal and coronal images were reconstructed. Individualized dose optimization techniques were used for this CT. COMPARISON: Comparison made with prior radiographs dated May 24, 2024. FINDINGS: Normal craniovertebral junction. There are degenerative changes of the anterior atlantoaxial articulation. Normal odontoid process. There is straightening of the normal cervical lordosis. C2-3: Normal endplates. Normal disc height and morphology. Normal central canal and intervertebral neuroforamina. C3-4: Normal endplates. Normal disc height and morphology. Normal central canal and intervertebral neuroforamina. C4-5: Normal endplates. Normal disc height and morphology. Facet joint osteoarthritis and hypertrophy more prominent on the right side. No significant stenosis seen. C5-6: Marked degree of disc space narrowing with spondylosis. No significant stenosis is seen. C6-7: Marked degree of disc space narrowing and spondylosis. Mild degree of right neural foraminal stenosis. C7-T1: Normal endplates. Normal disc height and morphology. Normal central canal and intervertebral neuroforamina. Normal visualized soft tissue structures. CT/Spine Cervical without Contras IMPRESSION: Disc space narrowing and spondylosis at the C5-C6 and C6-C7 levels with mild degree of right neural foraminal stenosis. Electronically Signed: Narciso Zamarripa MD at 10:58 EDT ,
== END | disposition home or self-care (01) ==
LOC: CT 07:53
PROVIDERS: PCP Internal Medicine; Referring Provider Anesthesiology Pain Medicine; Visit Provider Anesthesiology Pain Medicine
DX: M54.12 Radiculopathy, cervical region (principal)
CPT/HCPCS: 72125

== ENCOUNTER → 2024-06-13 | Outpatient (CLI) | payer MEDICARE, OTHER, SELFPAY ==
[2022-03-26 12:12] VITALS: BMI 28.0
== END | disposition home or self-care (01) ==
LOC: LABSPEC 15:13
PROVIDERS: PCP Internal Medicine; Referring Provider Internal Medicine; Visit Provider Internal Medicine
DX: R05.9 Cough, unspecified (principal)
CPT/HCPCS: 87502; 87635

== ENCOUNTER → 2024-07-04 | Outpatient (CLI) | payer MEDICARE, OTHER, SELFPAY ==
[2022-03-26 12:12] VITALS: BMI 28.0
[2024-07-04 18:24] LABS: PSA,Total- Diagnostic 3.73 ng/mL (0.0-4.0)
== END | disposition home or self-care (01) ==
PROVIDERS: PCP Internal Medicine; Referring Provider Urology; Visit Provider Urology
DX: N40.1 Benign prostatic hyperplasia with lower urinary tract symptoms (principal)
CPT/HCPCS: 36415; 84153

== ENCOUNTER → 2024-07-15 | Outpatient (CLI) | payer MEDICARE, OTHER, SELFPAY ==
[2022-03-26 12:12] VITALS: BMI 28.0
--- OUTSIDE RECORDS SUMMARY | 2024-07-15 11:38 | XMS RPT_ITS | CCD ---
Author Organization [facility] Care Team Providers Care Education Liaison Name Role Phone Unavailable Primary Care Provider Unavailabl e SELF Referring Unavailable LETA ORTIZ Attending Unavailable LETA ORTIZ Attending Unavailable Medications Current Medications Medication Drug Class(es) Dates Sig (Normalized) Sig (Original) acetaminophen 500 mg / HYDROcodone bitartrate 5 mg oral tablet (2 sources) Opioid Agonist Start: 8 HYDROCODONE-ACETAM INOPHEN 5 MG-500 MG TAB Take one(1) tablet every four(4) to six(6) hours as needed for pain. 0 09/01/2008 Active Comment on above: Take one(1) tablet e very four(4) to six(6) hours as needed for pain. aspirin 81 mg delayed release oral tablet (2 sources) Platelet Aggregation Inhibitor, Nonsteroidal Anti-inflammatory Drug Start: 8 aspirin(ASPIR-LOW 81 MG TAB) Take one(1) tablet daily. 0 09/01/2008 Active Comment on above: Take one(1) tablet d aily. azelaic acid 0.15 mg/mg topical gel (2 sources) Start: 8 azelaic acid(FINACEA 15 % TOPICAL GEL) as needed 0 09/01/2008 Active Comment on above: as needed bilberry fruit(BILBERRY 500 MG CAP) (2 sources) Start: 8 bilberry fruit(BILBERRY 500 MG CAP) Take one(1) tablet daily. 0 09/01/2008 Active Comment on above: Take one(1) tablet d aily. calcium carbonate 1250 mg / cholecalciferol 0.01 mg oral tablet (2 sources) Vitamin D Start: 8 calcium carbonate/vitamin d3(CALCIUM 500 WITH D 500 MG (1,250 MG)-400 UNIT TAB) As Directed 0 09/01/2008 Active Comment on above: As Directed diclofenac sodium 0.01 mg/mg topical gel (2 sources) Nonsteroidal Anti-inflammatory Drug Start: 8 diclofenac sodium(VOLTAREN 1 % TOPICAL GEL) four times daily 0 09/01/2008 Active Comment on above: four times daily 12 hr hyoscyamine sulfate 0.375 mg extended release oral tablet (2 sources) Start: 8 hyoscyamine sulfate(HYOMAX-SR 0.375 MG 12 HR TAB) in morning 0 09/01/2008 Active Comment on above: in morning levothyroxine sodium 0.05 mg oral tablet (2 sources) l-Thyroxine Start: 8 LEVOTHYROXINE 50 MCG TAB Take one(1) tablet daily. 0 09/01/2008 Active Comment on above: Take one(1) tablet d aily. lisinopril 10 mg oral tablet (2 sources) Angiotensin Converting Enzyme Inhibitor Start: 8 lisinopril(ZESTRIL 10 MG TAB) Take one(1) tablet daily. 0 09/01/2008 Active Comment on above: Take one(1) tablet d aily. multivitamins(DAILY VITAMIN TAB) (2 sources) Start: 8 multivitamins(GUERLINE Y VITAMIN TAB) Take one(1) tablet daily. 0 09/01/2008 Active Comment on above: Take one(1) tablet d aily. pimecrolimus 10 mg/ml topical cream (2 sources) Calcineurin Inhibitor Immunosuppressant Start: 8 pimecrolimus(ELIDE L 1 % TOPICAL CREAM) as needed 0 09/01/2008 Active Comment on above: as needed potassium gluconate 2.5 meq oral tablet (2 sources) Start: 8 POTASSIUM 99 MG TAB Take one(1) tablet daily. 0 09/01/2008 Active Comment on above: Take one(1) tablet d aily. raNITIdine 300 mg oral tablet (2 sources) Histamine-2 Receptor Antagonist Start: 8 RANITIDINE 300 MG TAB Take one(1) tablet two(2) times daily. 0 09/01/2008 Active Comment on above: Take one(1) tablet t wo(2) times daily. simvastatin 40 mg oral tablet (2 sources) HMG-CoA Reductase Inhibitor Start: 8 simvastatin(ZOCOR 40 MG TAB) Take one(1) tablet daily at bedtime. 0 09/01/2008 Active Comment on above: Take one(1) tablet d aily at bedtime. tamsulosin hydrochloride 0.4 mg oral capsule (2 sources) alpha-Adrenergic Bruno Start: 8 tamsulosin hcl(FLOMAX 0.4 MG 24 HR CAP) Take one(1) tablet at bedtime. 0 09/01/2008 Active Comment on above: Take one(1) tablet a t bedtime. ubidecarenone 200 mg oral capsule (2 sources) Start: 8 ubidecarenone(CO Q-10 200 MG CAP) Take one(1) tablet daily. 0 09/01/2008 Active Comment on above: Take one(1) tablet d aily. vitamin b12 1 mg oral tablet (2 sources) Vitamin B12 Start: 8 CYANOCOBALAMIN 1,000 MCG TAB Take one(1) tablet daily. 0 09/01/2008 Active Comment on above: Take one(1) tablet d aily. Problems Active Problems Problem Classification Problem Date Documented Date Episodic/Chronic Other aftercare (4 sources) Cochlear prosthesis in situ; Translations: [Encounter for other specified surgical aftercare] Onset: 07-10-2023 07-10-2023 Episodic Other ear and sense organ disorders (4 sources) Sensorineural hearing loss, bilateral; Translations: [Sensorineural hearing loss, bilateral] Onset: 07-10-2023 07-10-2023 Chronic Past or Other Problems Problem Classification Problem Date Documented Da te Episodic/Chronic Abdominal pain (2 sources) Left upper quadrant pain; Translations: [Left upper quadrant pain] Onset: 09-01-2008 09-01-2008 Episodic Results Test Name Value Interpretation Reference Range Facil ity SIGRIDon 05-27-2024 CNOV Office Visit (OTAUME ) IMANI MINER ([id number]) 1940 M Date Time Provider Department 05/27/24 2:30 PM LETA ORTIZ During your visit today, we recorded the following information about you: OrtizLeta, QUINTON 05/27/2024 4:37 PM Signed [facility] [place] [facility] COCHLEAR IMPLANT ADULT PROGRAMMING Name: Imani Miner CC#: [id number] Date of Service: May 27, 2024 Date of : 1940 Age: [age] year old COCHLEAR IMPLANT INFORMATION (see below for all device details) Updated: July 10, 2023 RIGHT ear: RIGHT: ReSound Juan 998 SN: [id number] Earmold/Tubing/Weasand Trimmer /Dome: 13/Full shell earmold Fitting Date: 2019 Repair Warranty Expiration Date: Unknown Loss/Damage Expiration Date: Unknown Fitting Conveyor Monitor: Hali GAN LEFT ear: External Processor Cochlear [employer] Nucleus 7 ([id number]) Processor SN [id number] Processor SN Back-up [id number] Magnet Strength 1 Internal Device CI512 Inactive electrodes None Surgery Date October 04, 2019 Initial activation date October [address] Ortiz ([facility]) HISTORY: Mr. Miner was seen for troubleshooting of the device/s. He was accompanied to today's visit by his and son (Glen) The patient reported: * No pain, redness, swelling at magnet site. 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 Use Mini microphone * not loud enough for the past few months. Not clear. Friends and family are noticing a decline in performance. * recently diagnosed with severe chron's disease. Started Stelara. In ED April 20, 2024. Ulcers that are being treated as well. *Diagnosed with a depleted immune system. *BP fluctuating for approximately 6 months. Sees cardiology. Has sudden drops in BP, with dizziness, dyphoresis. *Patient no longer drives due to these BP changes. AIDED AUDIOMETRIC TESTING: Audiologic testing was completed in the sound field with the speech processor(s) at user settings (Program: 1; Volume: 10; Sensitivity: 12.) before programming. See the Bhar[employer]ony Audiogram for obtained thresholds. Speech perception testing was completed at 60 barkeep using recorded stimuli in the sound field at 0 degrees azimuth. NOTE: The contralateral ear was plugged and muffed or masked during testing. The following testing and results were obtained: Ouuzdodlg-Pvwlxrl-Ptwsc nant Words (CNC) Test Condition List # Phonemes Words Clinically significant change compared to previous visit? Left Ear 1 83% 56% Baseline AZ BIO (quiet) Test Condition List # Score Clinically significant change compared to previous visit? Left Ear 1 83% Baseline AZ BIO (+10 SNR) Test Condition List # Score Clinically significant change compared to previous visit? Left Ear 2 40% Baseline Summary: Detection levels obtained between 20-35 dBHL for 250-6000 Hz with the left cochlear implant only. Speech perception testing was completed to obtain baseline measures before programming today. CONTRALATERAL HEARING AID PROGRAMMING/TROUBLESHOO TING: This patient was seen today for a Hearing Aid Check. Listening check revealed microphones are non-functional. Microphones were brushed and vacuumed with no change in function. Patient advised to follow up with his hearing aid case maker for repair as he reported that his warranty just around May 01, 2024. COCHLEAR IMPLANT PROGRAMMING/TROUBLESHOO TING: Dataloggin.9 hours/day (3.8 hours in quiet) LEFT Programming: Headset pressure, magnet strength, and incision site were checked with no problems noted. Electrode impedances, used to monitor internal device function, were measured across the electrode array. Impedances were WNL across all active electrodes. Review of impedances obtained today with comparison to previous 4 visits and 60-day postactivation baseline did not identify any remarkable changes or atypical measurements. Programming consisted of setting Comfort (C) levels at loud, but comfortable using a loudness scale. Several active electrodes were measured and the rest were interpolated. Following programming patient was able to repeat 5/6 Ling sounds on the first try (consistently missed /m/) minor fine tuning was completed and patient improved but still often missed /m/ in isolation. However, he was able to understand words with the /m/ sound without visual cues. The function/use of the programs created were discussed and are listed below: Left Ear Program/Map # Program Feature 1 32 SCAN (ADRO + ASC), SNR-NR,WNR 2 32 Noise (Zoom+ADRO+ASC) 3 32 Focus (Beam+ADRO+ASC) Active controls include: volume, forward focus. Battery Life: Recharge (more content not included)... [facility] CNOVon 07-10-2023 CNOV Office Visit (OTAR[place]AIN ) IMANI MINER ([id number]) 1940 [place] Date Time Provider Department 07/10/23 2:30 PM LETA ORTIZ During your visit today, we recorded the following information about you: Leta Ortiz AUD 07/10/2023 5:09 PM Signed [facility] [place] [facility] COCHLEAR IMPLANT ADULT PROGRAMMING Name: Imani Miner CCF#: [id number] Date of Service: July 10, 2023 Date of : 1940 Age: [age] year old COCHLEAR IMPLANT INFORMATION (see below for all device details) Updated: July 10, 2023 RIGHT ear: RIGHT: ReSound Juan 998 SN: [id number] Earmold/Tubing/Weasand Trimmer /Dome: 13/Full shell earmold Fitting Date: 2019 Repair Warranty Expiration Date: Unknown Loss/Damage Expiration Date: Unknown Fitting Conveyor Monitor: Hali GAN LEFT ear: External Processor Cochlear Geniuss Nucleus 7 ([id number]) Processor SN [id number] Processor SN Back-up [id number] Magnet Strength 1 Internal Device CI512 Inactive electrodes None Surgery Date October 04, 2019 Initial activation date October [address] Ortiz ([facility]) HISTORY: Mr. Miner was seen to establish care with [facility] for his cochlear implant. Former patient of Quinton Landrum. The patient reported: No pain, redness, swelling at magnet site. Wearing sound processor: all waking hours hours per day Program 1, Volume 9 is used most commonly Had shingles in the right ear. Dr. Ortiz-[facility] implanted the left ear in 2019. Wearing hearing aids since the age of 51. 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 Some loud sounds distort vision. Can hear well without the hearing aid as long as the processor on. Had tinnitus-resolved approximately 1 month after activation. Uses bluetooth and enjoys the connection. Contacts Co[facility] when he needs new batteries. COCHLEAR IMPLANT PROGRAMMING/TROUBLESHOO TING: Troubleshooting: coil on patient's primary implant is damaged and the coating is lifting from the cable. Both processor cables are stiff and worn. Dataloggin.2 hours/ day (11.9 in quiet) wears at volume 9 most of the time. LEFT Programming: Headset pressure, magnet strength, and incision site were checked, a 1 cm (approximately) round divot along his incision line that was approximately 1 cm deep was noted. Skin was not broken and no sores were noted. Patients stated that it is something that has developed over time. Electrode impedances, used to monitor internal device function, were measured across the electrode array. Impedances were WNL across all active electrodes. Programming consisted of evaluating Threshold (T) levels using the counting method and setting Comfort (C) levels at loud, but comfortable using a loudness scale. All electrodes were measured. While measuring C levels 5 electrodes in the middle of the array centered around electrode 11 were out of compliance. PW was changed from 25 to 50 to accommodate compliance needs. Patient noted improved volume and clarity. The function/use of the programs created were discussed and are listed below: Incoming settings LEFT Ear Program/Map # Program Feature 1 25 SCAN (ADRO + ASC), SNR-NR,WNR Volume 9 default 2 26 SCAN (ADRO + ASC), SNR-NR,WNR Volume 7 default 3 24 SCAN (ADRO + ASC), SNR-NR,WNR Volume 7 default 4 23 SCAN (ADRO + ASC), SNR-NR,WNR Volume 7 default Ending Settings: Left Ear Program/Map # Program Feature 1 28 SCAN (ADRO + ASC), SNR-NR,WNR 2 28 Noise (Zoom+ADRO+ASC) 3 28 Focus (Beam+ADRO+ASC) Active controls include: volume, sensitivity,master gaffney and treble and telecoil, forward focus Battery Life: Rechargeable: 12 hours Disposable: 20 hours SUMMARY AND RECOMMENDATIONS: Counseling Points: * Make an appointment with Dr. Ortiz (implanting ENT) or [facility] Otology to review incision line *Call [facility] at . Let them know you have 2 processors and you need replacement cable/coils for each. * Continue to monitor magnet/incision site for pain, redness, swelling, scabbing etc. Should any of these occur discontinue use of device immediately and contact the office. * Continue use of processor and hearing aid all waking during all waking hours. Follow-up Programming: It was recommended that the patient return in 1 year for monitoring of auditory performance and potential programming needs. The center should be contacted if there are problems or concerns before that time. NOTE: It should be noted that the patient left the appointment with all the equipment. None of the patient's equipment was left in the Audiology Section of the Clinic. TOTAL TIME: 110 minutes Programming right 0 minutes Programming le (more content not included)... [facility] Encounters Encounter Date Encounter Type Care Provider Facility Start: 05-27-2024 End: 05-27-2024 ambulatory SELF Facility:[facility] Start: 05-27-2024 End: 05-27-2024 Patient encounter procedure Leta ALCANTARA Work Phone: Audiology Comment on above: Sensorineural hearin g loss, bilateral (Primary Dx); Cochlear implant follow-up Start: 07-10-2023 End: 07-10-2023 ambulatory LETA ORTIZ Facility:[facility] Start: 07-10-2023 End: 07-10-2023 Patient encounter procedure Leta ALCANTARA Work Phone: Audiology Comment on above: Sensorineural hearin g loss, bilateral (Primary Dx); Cochlear implant follow-up Plan of Treatment Date Care Activity Detail Author Start: 05-08-2031 Urine microalbumin profile DTaP,Tdap,Td Vaccine (3 - Td or Tdap) [facility] Start: 08-05-2024 End: 08-05-2024 Patient encounter procedure 08/05/2024 12:30 PM EST Office Visit Audiology [address] [address] Leta Ortiz, AUD [address] [place] [address] 2 month follow up Audiology Comment on above: 2 month follow up Start: 05-22-2024 Covid-19 Vaccine ( season) Covid-19 Vaccine ( season) [facility] Start: 05-22-2024 Influenza vaccination Influenza Vacc ine (#1) [facility] Start: 09-21-2023 Advance Directive Discussion Advance Directive Discussion [facility] Start: 05-22-2023 Influenza vaccination Influenza Vacc ine (#1) [facility] Start: 09-21-2022 Advance Directive Discussion Advance Directive Discussion [facility] Start: 09-21-2022 Depression Assessment Depression Ass essment [facility] Start: 08-04-2019 Pneumococcal Vaccine : 65+ (2 - PCV) Pneumococcal Vaccine: 65+ (2 - PCV) [facility] Start: 08-04-2019 Pneumococcal Vaccine : 65+ (2 of 2 - PCV) Pneumococcal Vaccine: 65+ (2 of 2 - PCV) [facility] Start: 2001 RSV Vaccine (1 - 1-d ose 60+ series) RSV Vaccine (1 - 1-dose 60+ series) [facility] Start: 1986 Diabetes Screening Diabetes Screenin g [facility] Start: 01-01-1960 Anxiety Screening Anxiety Screening [facility] Start: 01-01-1960 Depression Screening Depression Scre ening [facility] Start: [birth year]-02-1942 Covid-19 Vaccine (#1) Covid-19 Vacci ne (#1) [facility] HEARING IMPLANTABLE DEVICES (E.G. COCHLEAR IMPLANTS (CI), BONE ANCHORED (ORESTES), SENSORY DEVICES) HEARING IMPLANTABLE DEVICES (E.G. COCHLEAR IMPLANTS (CI), BONE ANCHORED (ORESTES), SENSORY DEVICES) Audiology Routine 05/27/2024 3:12 PM EDT [facility] Work Phone: Immunizations Immunization Date Immunization Notes Care Provider Rasheeda tran 05-28-2021 influenza virus vacc ine, unspecified formulation Leta ALCANTARA Work Phone: [facility] Payers Date Payer Category Payer Private Health Insurance [id number] 2020 Medicare [id number] 2006 Medicare MEDICARE MEDICAR E A AND B [id number] 2006-Present [phone] [place] [address] Medicare [id number] 2006 Medicare [id number] Social History Date Type Detail [facility] Work Phone: Start: 09-11-2008 Alcohol intake 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) [facility] Start: 07-10-2023 History of Social function [facility] Start: 07-10-2023 Area Deprivation Index [facility] National Score (1-10 0), lower number is lower risk 72 [facility] Start: 1940 Sex Assigned At Not on file [facility] History of Present illness Narrative 05-27-2024 Leta Ortiz, AUD - 05/27/2024 2:30 PM EDT Note Date & Type Note Facility 05-27-2024 History of Presen t illness Narrative [facility] [place] [facility] COCHLEAR IMPLANT ADULT PROGRAMMING Name: Imani Miner CCF#: [id number] Date of Service: May 27, 2024 Date of : 1940 Age: [age] year old COCHLEAR IMPLANT INFORMATION (see below for all device details) Updated: July 10, 2023 RIGHT ear: RIGHT: ReSound Juan 998 SN: [id number] Earmold/Tubing/Weasand Trimmer/Dome: 13/Full shell earmold Fitting Date: 2019 Repair Warranty Expiration Date: Unknown Loss/Damage Expiration Date: Unknown Fitting Conveyor Monitor: Hali GAN LEFT ear: External Processor Cochlear [employer] Nucleus 7 ([id number]) Processor SN [id number] Processor SN Back-up [id number] Magnet Strength 1 Internal Device CI512 Inactive electrodes None Surgery Date October 04, 2019 Initial activation date October [address] Ortiz ([facility]) HISTORY: Mr. Miner was seen for troubleshooting of the device/s. He was accompanied to today's visit by his and son (Glen) The patient reported: * No pain, redness, swelling at magnet site. 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 Use Mini microphone * not loud enough for the past few months. Not clear. Friends and family are noticing a decline in performance. * recently diagnosed with severe chron's disease. Started Stelara. In ED April 20, 2024. Ulcers that are being treated as well. *Diagnosed with a depleted immune system. *BP fluctuating for approximately 6 months. Sees cardiology. Has sudden drops in BP, with dizziness, dyphoresis. *Patient no longer drives due to these BP changes. AIDED AUDIOMETRIC TESTING: Audiologic testing was completed in the sound field with the speech processor(s) at user settings (Program: 1; Volume: 10; Sensitivity: 12.) before programming. See the [employer] Audiogram for obtained thresholds. Speech perception testing was completed at 60 barkeep using recorded stimuli in the sound field at 0 degrees azimuth. NOTE: The contralateral ear was plugged and muffed or masked during testing. The following testing and results were obtained: Wnztzrtzn-Ncmjkja-Avycghrkr Words (CNC) Test Condition List # Phonemes Words Clinically significant change compared to previous visit? Left Ear 1 83% 56% Baseline AZ BIO (quiet) Test Condition List # Score Clinically significant change compared to previous visit? Left Ear 1 83% Baseline AZ BIO (+10 SNR) Test Condition List # Score Clinically significant change compared to previous visit? Left Ear 2 40% Baseline Summary: Detection levels obtained between 20-35 dBHL for 250-6000 Hz with the left cochlear implant only. Speech perception testing was completed to obtain baseline measures before programming today. CONTRALATERAL HEARING AID PROGRAMMING/TROUBLESHOOTING: This patient was seen today for a Hearing Aid Check. Listening check revealed microphones are non-functional. Microphones were brushed and vacuumed with no change in function. Patient advised to follow up with his hearing aid case maker for repair as he reported that his warranty just around May 01, 2024. COCHLEAR IMPLANT PROGRAMMING/TROUBLESHOOTING: Dataloggin.9 hours/day (3.8 hours in quiet) LEFT Programming: Headset pressure, magnet strength, and incision site were checked with no problems noted. Electrode impedances, used to monitor internal device function, were measured across the electrode array. Impedances were WNL across all active electrodes. Review of impedances obtained today with comparison to previous 4 visits and 60-day postactivation baseline did not identify any remarkable changes or atypical measurements. Programming consisted of setting Comfort (C) levels at loud, but comfortable using a loudness scale. Several active electrodes were measured and the rest were interpolated. Following programming patient was able to repeat 5/6 Ling sounds on the first try (consistently missed /m/) minor fine tuning was completed and patient improved but still often missed /m/ in isolation. However, he was able to understand words with the /m/ sound without visual cues. The function/use of the programs created were discussed and are listed below: Left Ear Program/Map # Program Feature 1 32 SCAN (ADRO + ASC), SNR-NR,WNR 2 32 Noise (Zoom+ADRO+ASC) 3 32 Focus (Beam+ADRO+ASC) Active controls include: volume, forward focus. Battery Life: Rechargeable: 16 hours Disposable: 30 hours SUMMARY AND RECOMMENDATIONS: Assistive Technologies: The potential benefit of assistive devices such as TV Streamer was reviewed, discussed connecting via optical cable. Counseling Points: * Follow up with hearing aid case maker for repair of right hearing aid. *Contact [facility] to discuss an upgrade in October 2024. * Continue to monitor magnet/incision site for pain, redness, swelling, scabbing etc. Should any of these occur discontinue use of device immediately and contact the office. * Continue use of processor and hearing aid during all waking hours. *Obtain microphone covers from [facility] and change them every 3 months. *Consider changing coil/cables on both processors due to wear. (Two new cables requested from [employer]: SR: [id number]) Follow-up Programming: It was recommended that the patient return in 1-2 months for monitoring of auditory performance and potential programming needs, however, if today's adjustments and a hearing aid repaired resolved his difficulties hearing, he can cancel that appointment and follow up in 1 year. The center should be contacted if there are problems or concerns before that time. NOTE: It should be noted that the patient left the appointment with all the equipment. None of the patient's equipment was left in the Audiology Section of the Clinic. TOTAL TIME: 100 minutes Programming right 0 minutes Programming left 20 minutes Evaluation of auditory status 20 minutes Quinton Garcia, DEREK-A Clinical and Senior Hearing Implant Conveyor Monitor documented in this encounter [facility] Progress note 05-27-2024 Note Date & Type Note Facility 05-27-2024 Note HNO ID: [id number] Author: LETA ORTIZ AUD Service: ? Author Type: Conveyor Monitor Type: Progress Notes Filed: 05/27/2024 16:37 Note Text: [facility] [place] [facility] COCHLEAR IMPLANT ADULT PROGRAMMING Name: Imani Miner CC#: [id number] Date of Service: May 27, 2024 Date of : 1940 Age: [age] year old COCHLEAR IMPLANT INFORMATION (see below for all device details) Updated: July 10, 2023 RIGHT ear: RIGHT: ReSound Juan 998 SN: [id number] Earmold/Tubing/Weasand Trimmer/Dome: 13/Full shell earmold Fitting Date: 2019 Repair Warranty Expiration Date: Unknown Loss/Damage Expiration Date: Unknown Fitting Conveyor Monitor: Hali GAN LEFT ear: External Processor Cochlear [employer] Nucleus 7 ([id number]) Processor SN [id number] Processor SN Back-up [id number] Magnet Strength 1 Internal Device [id number] Inactive electrodes None Surgery Date October 04, 2019 Initial activation date October [address] Ortiz ([facility]) HISTORY: Mr. Miner was seen for troubleshooting of the device/s. He was accompanied to today's visit by his and son (Glen) The patient reported: * No pain, redness, swelling at magnet site. 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 Use Mini microphone * not loud enough for the past few months. Not clear. Friends and family are noticing a decline in performance. * recently diagnosed with severe chron's disease. Started Stelara. In ED April 20, 2024. Ulcers that are being treated as well. *Diagnosed with a depleted immune system. *BP fluctuating for approximately 6 months. Sees cardiology. Has sudden drops in BP, with dizziness, dyphoresis. *Patient no longer drives due to these BP changes. AIDED AUDIOMETRIC TESTING: Audiologic testing was completed in the sound field with the speech processor(s) at user settings (Program: 1; Volume: 10; Sensitivity: 12.) before programming. See the SmartKapture Audio Audiogram for obtained thresholds. Speech perception testing was completed at 60 barkeep using recorded stimuli in the sound field at 0 degrees azimuth. NOTE: The contralateral ear was plugged and muffed or masked during testing. The following testing and results were obtained: Afllwwzxq-Qerfhjl-Ethfwjckl Words (CNC) Test Condition List # Phonemes Words Clinically significant change compared to previous visit? Left Ear 1 83% 56% Baseline AZ BIO (quiet) Test Condition List # Score Clinically significant change compared to previous visit? Left Ear 1 83% Baseline AZ BIO (+10 SNR) Test Condition List # Score Clinically significant change compared to previous visit? Left Ear 2 40% Baseline Summary: Detection levels obtained between 20-35 dBHL for 250-6000 Hz with the left cochlear implant only. Speech perception testing was completed to obtain baseline measures before programming today. CONTRALATERAL HEARING AID PROGRAMMING/TROUBLESHOOTING: This patient was seen today for a Hearing Aid Check. Listening check revealed microphones are non-functional. Microphones were brushed and vacuumed with no change in function. Patient advised to follow up with his hearing aid case maker for repair as he reported that his warranty just around May 01, 2024. COCHLEAR IMPLANT PROGRAMMING/TROUBLESHOOTING: Dataloggin.9 hours/day (3.8 hours in quiet) LEFT Programming: Headset pressure, magnet strength, and incision site were checked with no problems noted. Electrode impedances, used to monitor internal device function, were measured across the electrode array. Impedances were WNL across all active electrodes. Review of impedances obtained today with comparison to previous 4 visits and 60-day postactivation baseline did not identify any remarkable changes or atypical measurements. Programming consisted of setting Comfort (C) levels at loud, but comfortable using a loudness scale. Several active electrodes were measured and the rest were interpolated. Following programming patient was able to repeat 5/6 Ling sounds on the first try (consistently missed /m/) minor fine tuning was completed and patient improved but still often missed /m/ in isolation. However, he was able to understand words with the /m/ sound without visual cues. The function/use of the programs created were discussed and are listed below: Left Ear Program/Map # Program Feature 1 32 SCAN (ADRO + ASC), SNR-NR,WNR 2 32 Noise (Zoom+ADRO+ASC) 3 32 Focus (Beam+ADRO+ASC) Active controls include: volume, forward focus. Battery Life: Rechargeable: 16 hours Disposable: 30 hours SUMMARY AND RECOMMENDATIONS: Assistive Technologies: The potential benefit of assistive devices such as TV Streamer was reviewed, discussed connect (more content not included)... [facility] Instructions 07-10-2023 Patient Instructions Note Date & Type Note Facility 07-10-2023 Instructions Leta Ortiz AUD - 07/10/2023 4:07 PM EDT Schedule an appointment with Dr. Ortiz or [facility] otologists to have your incision site assessed. Otologists at [facility] Anila Huffman ([facility]) Huber Echevarria ([facility]) Nayan Sr ([facility]) Antonella Lacy ([facility]) Luisa [facility] Cochlear Implant Audiologists Leta Kent Call [facility] at . Let them know you have 2 processors and you need replacement cable/coils for each. Your new programs Program 1 Automatic adjusting Program 2 Restaurant/social mode Program 3 Really Loud noise situations Return annually for follow up programming and speech testing. documented in this encounter [facility] Progress note 07-10-2023 Note Date & Type Note Facility 07-10-2023 Note HNO ID: [id number] Author: Leta Ortiz AUD Service: ? Author Type: Conveyor Monitor Type: Progress Notes Filed: 07/10/2023 5:09 PM Note Text: [facility] [place] [facility], Speech and Balance [facility] COCHLEAR IMPLANT ADULT PROGRAMMING Name: Imani Miner [facility]#: [id number] Date of Service: July 10, 2023 Date of : 1940 Age: [age] year old COCHLEAR IMPLANT INFORMATION (see below for all device details) Updated: July 10, 2023 RIGHT ear: RIGHT: ReSound Juan 998 SN: [id number] Earmold/Tubing/Weasand Trimmer/Dome: 13/Full shell earmold Fitting Date: 2019 Repair Warranty Expiration Date: Unknown Loss/Damage Expiration Date: Unknown Fitting Conveyor Monitor: Hali GAN LEFT ear: External Processor Cochlear [employer] Nucleus 7 ([id number]) Processor SN [id number] Processor SN Back-up [id number] Magnet Strength 1 Internal Device CI512 Inactive electrodes None Surgery Date October 04, 2019 Initial activation date October [address] Ortiz ([facility]) HISTORY: Mr. Miner was seen to establish care with [facility] for his cochlear implant. Former patient of [facility]. The patient reported: No pain, redness, swelling at magnet site. Wearing sound processor: all waking hours hours per day Program 1, Volume 9 is used most commonly Had shingles in the right ear. Dr. Ortiz-[facility] implanted the left ear in 2019. Wearing hearing aids since the age of 51. 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 Some loud sounds distort vision. Can hear well without the hearing aid as long as the processor on. Had tinnitus-resolved approximately 1 month after activation. Uses bluetooth and enjoys the connection. Contacts [facility] when he needs new batteries. COCHLEAR IMPLANT PROGRAMMING/TROUBLESHOOTING: Troubleshooting: coil on patient's primary implant is damaged and the coating is lifting from the cable. Both processor cables are stiff and worn. Dataloggin.2 hours/ day (11.9 in quiet) wears at volume 9 most of the time. LEFT Programming: Headset pressure, magnet strength, and incision site were checked, a 1 cm (approximately) round divot along his incision line that was approximately 1 cm deep was noted. Skin was not broken and no sores were noted. Patients stated that it is something that has developed over time. Electrode impedances, used to monitor internal device function, were measured across the electrode array. Impedances were WNL across all active electrodes. Programming consisted of evaluating Threshold (T) levels using the counting method and setting Comfort (C) levels at loud, but comfortable using a loudness scale. All electrodes were measured. While measuring C levels 5 electrodes in the middle of the array centered around electrode 11 were out of compliance. PW was changed from 25 to 50 to accommodate compliance needs. Patient noted improved volume and clarity. The function/use of the programs created were discussed and are listed below: Incoming settings LEFT Ear Program/Map # Program Feature 1 25 SCAN (ADRO + ASC), SNR-NR,WNR Volume 9 default 2 26 SCAN (ADRO + ASC), SNR-NR,WNR Volume 7 default 3 24 SCAN (ADRO + ASC), SNR-NR,WNR Volume 7 default 4 23 SCAN (ADRO + ASC), SNR-NR,WNR Volume 7 default Ending Settings: Left Ear Program/Map # Program Feature 1 28 SCAN (ADRO + ASC), SNR-NR,WNR 2 28 Noise (Zoom+ADRO+ASC) 3 28 Focus (Beam+ADRO+ASC) Active controls include: volume, sensitivity,master gaffney and treble and telecoil, forward focus Battery Life: Rechargeable: 12 hours Disposable: 20 hours SUMMARY AND RECOMMENDATIONS: Counseling Points: * Make an appointment with Dr. Ortiz (implanting ENT) or [facility] Otology to review incision line *Call [facility] at . Let them know you have 2 processors and you need replacement cable/coils for each. * Continue to monitor magnet/incision site for pain, redness, swelling, scabbing etc. Should any of these occur discontinue use of device immediately and contact the office. * Continue use of processor and hearing aid all waking during all waking hours. Follow-up Programming: It was recommended that the patient return in 1 year for monitoring of auditory performance and potential programming needs. The center should be contacted if there are problems or concerns before that time. NOTE: It should be noted that the patient left the appointment with all the equipment. None of the patient's equipment was left in the Audiology Section of the Clinic. TOTAL TIME: 110 minutes Programming right 0 minutes Programming left 35 minutes Evaluation of auditory status 0 minutes Quinton Garcia, CCC-A Clinical and Senior Hearing Implant Conveyor Monitor [facility] History of Present illness Narrative 07-10-2023 Leta Ortiz AUD - 07/10/2023 2:44 PM EDT Note Date & Type Note Facility 07-10-2023 History of Presen t illness Narrative [facility] [place] [facility] Balance [facility] COCHLEAR IMPLANT ADULT PROGRAMMING Name: Imani Miner [facility]#: [id number] Date of Service: July 10, 2023 Date of : 1940 Age: [age] year old COCHLEAR IMPLANT INFORMATION (see below for all device details) Updated: July 10, 2023 RIGHT ear: RIGHT: ReSound Juan 998 SN: [id number] Earmold/Tubing/Weasand Trimmer/Dome: 13/Full shell earmold Fitting Date: 2019 Repair Warranty Expiration Date: Unknown Loss/Damage Expiration Date: Unknown Fitting Conveyor Monitor: Hali GAN LEFT ear: External Processor Cochlear [employer] Nucleus 7 ([id number]) Processor SN [id number] Processor SN Back-up [id number] Magnet Strength 1 Internal Device CI512 Inactive electrodes None Surgery Date October 04, 2019 Initial activation date October [address] Ortiz ([facility]) HISTORY: Mr. Miner was seen to establish care with [facility] for his cochlear implant. Former patient of [facility]rum. The patient reported: No pain, redness, swelling at magnet site. Wearing sound processor: all waking hours hours per day Program 1, Volume 9 is used most commonly Had shingles in the right ear. Dr. Oritz-[facility] implanted the left ear in 2019. Wearing hearing aids since the age of 51. 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 Some loud sounds distort vision. Can hear well without the hearing aid as long as the processor on. Had tinnitus-resolved approximately 1 month after activation. Uses bluetooth and enjoys the connection. Contacts [facility] when he needs new batteries. COCHLEAR IMPLANT PROGRAMMING/TROUBLESHOOTING: Troubleshooting: coil on patient's primary implant is damaged and the coating is lifting from the cable. Both processor cables are stiff and worn. Dataloggin.2 hours/ day (11.9 in quiet) wears at volume 9 most of the time. LEFT Programming: Headset pressure, magnet strength, and incision site were checked, a 1 cm (approximately) round divot along his incision line that was approximately 1 cm deep was noted. Skin was not broken and no sores were noted. Patients stated that it is something that has developed over time. Electrode impedances, used to monitor internal device function, were measured across the electrode array. Impedances were WNL across all active electrodes. Programming consisted of evaluating Threshold (T) levels using the counting method and setting Comfort (C) levels at loud, but comfortable using a loudness scale. All electrodes were measured. While measuring C levels 5 electrodes in the middle of the array centered around electrode 11 were out of compliance. PW was changed from 25 to 50 to accommodate compliance needs. Patient noted improved volume and clarity. The function/use of the programs created were discussed and are listed below: Incoming settings LEFT Ear Program/Map # Program Feature 1 25 SCAN (ADRO + ASC), SNR-NR,WNR Volume 9 default 2 26 SCAN (ADRO + ASC), SNR-NR,WNR Volume 7 default 3 24 SCAN (ADRO + ASC), SNR-NR,WNR Volume 7 default 4 23 SCAN (ADRO + ASC), SNR-NR,WNR Volume 7 default Ending Settings: Left Ear Program/Map # Program Feature 1 28 SCAN (ADRO + ASC), SNR-NR,WNR 2 28 Noise (Zoom+ADRO+ASC) 3 28 Focus (Beam+ADRO+ASC) Active controls include: volume, sensitivity,master gaffney and treble and telecoil, forward focus Battery Life: Rechargeable: 12 hours Disposable: 20 hours SUMMARY AND RECOMMENDATIONS: Counseling Points: * Make an appointment with Dr. Ortiz (implanting ENT) or [facility] Otology to review incision line *Call [facility] at . Let them know you have 2 processors and you need replacement cable/coils for each. * Continue to monitor magnet/incision site for pain, redness, swelling, scabbing etc. Should any of these occur discontinue use of device immediately and contact the office. * Continue use of processor and hearing aid all waking during all waking hours. Follow-up Programming: It was recommended that the patient return in 1 year for monitoring of auditory performance and potential programming needs. The center should be contacted if there are problems or concerns before that time. NOTE: It should be noted that the patient left the appointment with all the equipment. None of the patient's equipment was left in the Audiology Section of the Clinic. TOTAL TIME: 110 minutes Programming right 0 minutes Programming left 35 minutes Evaluation of auditory status 0 minutes Quinton Garcia CCC-A Clinical and Senior Hearing Implant Conveyor Monitor documented in this encounter [facility] Evaluation note Note Date & Type Note Facility Evaluation note Diagnosis Sensorineural hearing loss, bilateral- Primary Cochlear implant follow-up Other specified aftercare following surgery documented in this encounter [facility] Evaluation note Note Date & Type Note Facility Evaluation note Diagnosis Sensorineural hearing loss, bilateral- Primary Cochlear implant follow-up Other specified aftercare following surgery documented in this encounter [facility] Summary Purpose Family History No Family History Records Found Advance Directives No Advanced Directives Records Found Additional Source Comments Source Comments (unrecognize d section and content) In the event this informatio n is protected by the Federal Confidentiality of Alcohol and Drug Abuse Patient Records regulations: The Federal rules restrict any use of the information to criminally investigate or prosecute any alcohol or drug abuse patient[facility] the event this information is protected by the Federal Confidentiality of Alcohol and Drug Abuse Patient Records regulations: The Federal rules restrict any use of the information to criminally investigate or prosecute any alcohol or drug abuse patient.[facility] (unrecognized sect ion and content) No Status Records Found INFORMATION SOURCE (unrecogn ized section and content) DATE CREATED AUTHOR 05/29/2024 [facility] FOR RECORDS PERTAINING TO PATIENTS WHO ARE OR HAVE BEEN ENROLLED IN A CHEMICAL DEPENDENCY/SUBSTANCEABUSE PROGRAM, SOME INFORMATION MAY BE OMITTED. This clinical summary was aggregated from multiple sources. Caution should be exercised in using it in the provision of clinical care. This summary normalizes information from multiple sources, and as a consequence, information in this document may materially change the coding, format and clinical context of patient data. In addition, data may be omitted in some cases. CLINICAL DECISIONS SHOULD BE BASED ON THE PRIMARY CLINICAL RECORDS. [facility] [employer] [facility]. provides no warranty or guarantee of the accuracy or completeness of information in this document.
[2024-07-15 15:29] LABS: Anion Gap 4 (5-15); BUN 22 mg/dL (7-18); BUN/Creat Ratio 24.2 RATIO (10-20); Calcium,Total 8.9 mg/dL (8.5-10.1); Chloride 103 mmol/L (98-107); Creatinine, Serum 0.91 mg/dL (0.70-1.30); EST Glomerular Filtration Rate 85 mL/min (>60); Est Glom Filt Rate - Afr Amer 103 mL/min (>60); Glucose 94 mg/dL (74-106); Sodium Level 133 mmol/L (136-145)
[2024-07-15 15:38] LABS: AST(SGOT) 24 U/L (15-37); Alanine Aminotransfer ALT/SGPT 54 U/L (16-61); Albumin, Serum 2.9 g/dL (3.2-5.0); Alkaline Phosphatase 75 U/L (45-117); Bilirubin, Direct 0.26 mg/dL (0.00-0.30); Cholesterol 178 mg/dL (200); Globulin 3.6 g/dL (2.2-4.2); High Density Lipoprotein 69 mg/dL; Protein, Total 6.5 g/dL (6.4-8.2); Triglycerides 172 mg/dL; Very Low Density Lipoprotein 34 mg/dL (5-40)
== END | disposition home or self-care (01) ==
LOC: MTLAB 11:16
PROVIDERS: Nurse Practitioner Gerontology; PCP Internal Medicine; Referring Provider Internal Medicine; Visit Provider Internal Medicine
DX: E78.00 Pure hypercholesterolemia, unspecified (principal); E03.9 Hypothyroidism, unspecified; I10 Essential (primary) hypertension
CPT/HCPCS: 36415; 80048; 80061; 80076; 84443

== ENCOUNTER 2024-07-20 21:08 | Emergency (ER) | payer MEDICARE, OTHER, SELFPAY ==
[2022-03-26 12:12] VITALS: BMI 28.0
[2024-07-20 21:09] VITALS: BP 152/80; PULSE 87; RESP 19; TEMP 37.1; O2SAT 94; BMI 29.5
--- NOTE | 2024-07-20 21:24 | EKG12_ITS ---
Test Reason : CP Blood Pressure : */* mmHG Vent. Rate : 91 BPM Atrial Rate : 91 BPM P-R Int : 134 ms QRS Dur : 98 ms QT Int : 340 ms P-R-T Axes : 61 -61 61 degrees QTcB Int : 418 ms Normal sinus rhythm Left anterior fascicular block Minimal voltage criteria for LVH, may be normal variant ( R in aVL ) Abnormal ECG Confirmed by KAYLA ANTONIO, LEE ([id number]), film or videotape editor ANA LUISA ALLEN ([id number]) on 07/22/2024 8:18:20 AM Referred By: Rivka Carlos Confirmed By: LEE GARZA MD
[2024-07-20 21:33] LABS: Absolute Lymphocyte Count 0.38 X10^3/uL (0.83-4.51); Absolute Neutrophil Count 5.7 X10^3/uL (2.0-7.7); Basophil# 0.02 X10^3/uL; Basophil% 0.3 % (0-1); Eosinophil# 0.15 X10^3/uL; Eosinophils% 2.2 % (0-5); Hematocrit 46.6 % (40-54); Hemoglobin 15.2 g/dL (13.0-16.5); Lymphocyte # 0.38 X10^3/ul (0.83-4.51); Lymphocyte % 5.6 % (19-41); Mean Corp Hgb Conc 32.6 g/dL (32-36); Mean Corpuscular Hgb 32.5 pg (27.0-32.0); Mean Corpuscular Volume 99.6 fL (80-94); Mean Platelet Vol. 8.6 fl (6.2-12.0); Monocyte# 0.44 X10^3/uL; Monocyte% 6.5 % (0-10); NRBC Flagged by Analyzer 0 % (0-5); Neutrophil # 5.66 X10^3/uL (2.7-7.7); Neutrophil % 84.2 % (47-70); POSITIVE DIFFERENTIAL YES; Platelet Count 223 K/mm3 (150-450); RBC Distribution Width CV 12.5 % (11.6-14.6); RBC Distribution Width SD 46.7 fl (35.1-43.9); Red Blood Count 4.68 M/mm3 (4.6-6.2); White Blood Count 6.7 K/mm3 (4.4-11.0)
--- NOTE | 2024-07-20 21:35 | RAD_ITS ---
STUDY: X-RAY CHEST REASON FOR EXAM: Male, 83 years old. Chest pain TECHNIQUE: Single AP portable view of the chest. COMPARISON: February 27, 2023 FINDINGS: There are monitoring devices. There is mild lower lung scarring or atelectasis. There is no demonstrated pleural abnormality. Normal size heart. Normal mediastinum and tati. Normal visualized pulmonary arteries. There is atherosclerotic calcification of the aortic arch. Normal visualized thoracic spine. Normal visualized ribs, clavicles, and shoulders. There is no demonstrated abnormality of the visualized soft tissue structures of the upper abdomen. RAD/Chest 1 View (Portable) IMPRESSION: Degenerative changes, as described above. No demonstrated acute cardiopulmonary process. Electronically Signed: Vipul Ortiz MD at 22:22 EDT ,
[2024-07-20 21:51] LABS: Anion Gap 7 (5-15); BUN 26 mg/dL (7-18); BUN/Creat Ratio 21.3 RATIO (10-20); Calcium,Total 8.8 mg/dL (8.5-10.1); Chloride 102 mmol/L (98-107); Creatinine, Serum 1.22 mg/dL (0.70-1.30); EST Glomerular Filtration Rate 60 mL/min (>60); Est Glom Filt Rate - Afr Amer 73 mL/min (>60); Estimated Creatinine Clearance 50.36 ml/min; Glucose 125 mg/dL (74-106); Potassium 4.5 mmol/L (3.5-5.1); Sodium Level 135 mmol/L (136-145); Troponin-I HS (w/2H Reflex) 6 pg/mL (3.0-78.0)
[2024-07-20 22:09] VITALS: BP 129/75; PULSE 90; RESP 21; O2SAT 93
--- NOTE | 2024-07-20 22:11 | ED.VIS.CHEST ---
HPI History of Present Illness Chief Complaint: Chest Pain Informant: patient and spouse/S.O. Narrative Narrative: Patient is an 83 year old male presenting from home for chest pain. He is history of psoriasis, cochlear implants, thyroid disease, hypertension, anxiety, coronary artery disease, GERD and recent diagnosis of Crohn's disease. He states he has been on high doses of prednisone for 12 weeks and he also completed a Z-Herberth for bronchitis which was diagnosed at the [facility] clinic 07/15. Patient states he woke up was not feeling good this morning. This afternoon however he mowed his front lawn with a push mower. He then had a son come over and they changed light in the kitchen. After all this activity which involves going up and down multiple flights of stairs he sat down and then started to have chest pressure. States is in the center of his chest. He did have some discomfort going into his left neck and underneath his left axilla. He took nitroglycerin and waited 5 minutes with no relief. He did this 2 more times for a total of 3 doses of nitroglycerin and then called EMS. EMS gave him aspirin and route. He notes that prior times that chest pain has been sharp. He denies associate nausea or vomiting. No sweating reported. He is had some vague pain in his upper abdomen as well is not sure if this is related to his Crohn's. Denies any recent change in his bowel movements states he has not had any blood in his stool for the past 3 days. States he is continue to have a cough which is productive of yellow and brown sputum. No report of any fevers. Notes that he did feel short of breath today. also notes that his face has been very red but attributes that to the steroids he has been on. Patient had a stress test on 04/25/2024 which was normal. He does have a history of LAD disease. [facility] Medical History URI (upper respiratory infection) Tremor History of Holter monitoring History of ulceration Elevated liver enzymes Elevated C-reactive protein (CRP) Rosacea Psoriasis Loss of hearing High cholesterol History of Crohn's disease Non-smoker History of echocardiogram History of stress test Cardiology follow-up encounter Abdominal pain Electrolyte abnormality Acute maxillary sinusitis, unspecified Viral syndrome Malaise and fatigue Macrocytosis HTN (hypertension) Debility Vertigo CHERELLE (acute kidney injury) CAD (coronary artery disease) Wears hearing aid Wears glasses Prostate disease Back pain Migraine headache History of hiatal hernia CPAP (continuous positive airway pressure) dependence Asthma Umbilical hernia Lumbar back pain with radiculopathy affecting right lower extremity Piriformis syndrome Degenerative disc disease Bilateral knee pain 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 Thyroid disease Essential hypertension Anxiety Atherosclerotic heart disease of [place] coronary artery with other forms of angina pectoris EH (obstructive sleep apnea) Crohns disease Nonrheumatic tricuspid (valve) insufficiency Hypothyroidism Arthritis BPH (benign prostatic hyperplasia) Long-term current use of high risk medication other than anticoagulant Restless leg syndrome Hyperlipidemia Gastroesophageal reflux disease Home Medications ?Medication ?Instructions ?Recorded ?Last Taken ?Type aspirin 81 mg chewable tablet 81 mg PO QHS Heart 03/20/14 04/28/24 History multivitamin with folic acid 400 1 tab PO DAILY Vitamin 03/20/14 05/01/24 History mcg tablet coenzyme Q10 75 mg capsule (Ultra 30 mg PO DAILY pain 06/01/19 05/01/24 History CoQ10) wheat dextrin 3 gram/3.5 gram oral 1 ea PO DAILY supplement 09/26/19 05/01/24 History powder packet diclofenac sodium 1 % topical gel 2 g topical PRN PRN Pain 07/30/21 Unknown History cinnamon bark 500 mg capsule 1,000 mg PO DAILY pain 02/11/22 05/01/24 History (Cinnamon) bilberry 100 mg capsule 1,000 mg PO QHS Eye function 10/31/22 05/01/24 History ipratropium bromide 42 mcg (0.06 2 spray intranasal DAILY PRN 10/31/22 05/01/24 History %) nasal spray Congestion lactobacillus combination no.4 15 15,000 mmu cells PO DAILY 01/12/23 05/01/24 History billion cell capsule (Senior Probiotic) ketoconazole 2 % shampoo 1 applic topical DAILY 07/08/23 05/01/24 History nitroglycerin 0.4 mg sublingual 0.4 mg sublingual Q5M PRN chest 09/01/23 Unknown Rx tablet pain #25 tabs rosuvastatin 5 mg tablet 5 mg PO QHS cholesterol #90 tabs 12/14/23 05/01/24 Rx levothyroxine 112 mcg tablet 112 mcg PO QHS Thyroid 02/10/24 05/01/24 History ferrous sulfate 325 mg (65 mg 325 mg PO Q OTHER DAY #90 tabs 02/19/24 05/01/24 Rx iron) tablet,delayed release losartan 50 mg tablet 25 mg (1/2 x 50 mg) PO BID blood 04/11/24 05/02/24 Rx pressure #0 tabs labetalol 200 mg tablet 200 mg PO BID Blood pressure #180 04/13/24 05/02/24 Rx tabs isosorbide mononitrate 60 mg 60 mg PO BID patient cannot cut 05/30/24 Unknown Rx tablet,extended release 24 hr the 120 mg tablet in half #180 tabs gabapentin 300 mg capsule 300 mg PO DAILY #90 caps 06/03/24 Unknown Rx gabapentin 600 mg tablet 600 mg PO QHS 3 months #90 tabs 06/06/24 Unknown Rx pantoprazole 40 mg tablet,delayed 40 mg PO DAILY #90 tabs 06/22/24 Unknown Rx release sertraline 25 mg tablet 25 mg PO DAILY #90 tabs 06/22/24 Unknown Rx azathioprine 50 mg tablet 50 mg PO QDAY #30 tabs 06/30/24 Unknown Rx omega 7-gsa-ety-fish oil 60 mg-90 1 cap PO DAILY supplement 07/20/24 Unknown History mg-500 mg capsule (Fish Oil) turmeric 400 mg capsule mg PO DAILY crohns 07/20/24 Unknown History Allergy/AdvReac Type Severity Reaction Status Date / Time amlodipine (From Norvasc) AdvReac Intermediate upset Verified 07/20/24 21:20 stomach amoxicillin (From Augmentin) AdvReac Intermediate Nausea/Vom/ Verified 07/20/24 21:20 Diarrhea clavulanic acid (From AdvReac Intermediate Nausea/Vom/ Verified 07/20/24 21:20 Augmentin) Diarrhea lisinopril AdvReac Intermediate cough Verified 07/20/24 21:20 atorvastatin (From Lipitor) AdvReac Pain in Verified 07/20/24 21:20 joints gemfibrozil (From Lopid) AdvReac Pain in Verified 07/20/24 21:20 joints niacin AdvReac Other Verified 07/20/24 21:20 Family History Grandfather CVA (cerebral vascular accident) Depression Brother COPD (chronic obstructive pulmonary disease) Grandmother Depression Son Arthritis Father Arthritis CAD (coronary artery disease) Mother Hypertension Hyperlipidemia Pacemaker Other Cancer Surgical History Hx of colonoscopy History of umbilical hernia repair (~2013) History of partial colectomy (~1993) History of bilateral cataract extraction S/P umbilical hernia repair, follow-up exam Hx of tonsillectomy History of coronary artery stent placement (09/07/18) H/O vasectomy History of left heart catheterization (11/12/18) History of prostate surgery Hx of appendectomy H/O hemorrhoidectomy (~1989) eye lesion removal Social History household members: spouse housing: house current occupational status: retired pets and animals: No Smoking Status: Never smoker second hand exposure: No alcohol intake: never substance use type: does not use caffeine: No what type of physical activity do you participate in: walking frequency: 5-6 times per week ROS ROS ED Constitutional Constitutional ED: Denies chills or fever(s) ENT ENT ED: Reports other Details: Facial swelling and flushing from steroids Cardiovascular Cardiovascular: Reports as per HPI and chest pain Respiratory/Chest Respiratory/Chest: Reports cough; Denies dyspnea Gastrointestinal Gastrointestinal: Reports diarrhea; Denies vomiting Genitourinary Genitourinary ED: Denies dysuria or hematuria Musculoskeletal Musculoskeletal: Denies arthralgias or myalgias Integumentary Reports rash Neurologic Neurologic: Reports weakness Psychiatric Psychiatric: Denies anxiety Hematologic/Lymphatic Hematologic/Lymphatic: Denies easy bleeding or easy bruising EXAM Physical Exam Const Vital Signs: 07/20/24 21:09 07/20/24 21:20 07/20/24 21:24 Temperature 98.8 F Temperature Source Oral Pulse Rate 87 Respiratory Rate 19 H Respiratory Effort Normal Blood Pressure 152/80 H Blood Pressure Mean 104 Pulse Ox 94 Oxygen Delivery Method Room Air Room Air 07/20/24 22:09 07/20/24 22:51 07/20/24 23:24 Temperature Temperature Source Pulse Rate 90 89 88 Respiratory Rate 21 H 18 22 H Respiratory Effort Blood Pressure 129/75 H 130/81 H 130/73 H Blood Pressure Mean 93 97 92 Pulse Ox 93 95 93 Oxygen Delivery Method Room Air Room Air Room Air 07/21/24 00:00 Temperature Temperature Source Pulse Rate 89 Respiratory Rate 18 Respiratory Effort Blood Pressure 129/77 H Blood Pressure Mean 94 Pulse Ox 95 Oxygen Delivery Method Room Air Positive well nourished and well developed General Appearance ED: well developed and NAD HEENT Reports moist mucous membranes atraumatic Eyes PERRL and EOMs intact bilaterally Neck supple Chest Wall inspection of chest normal and palpation of chest normal Resp normal respiratory effort and clear to auscultation bilaterally Cardio regular rate, regular rhythm and no murmurs GI normal to inspection, nondistended, normoactive bowel sounds and non-tender Extremity normal to inspection General Extremety ED: Negative for edema General Extremity: Negative for edema Neuro oriented x3 Sensorium / Orientation: awake and alert Motor Exam: Negative for general weakness Psych mental status grossly normal Skin no rashes or lesions noted and no wounds Skin Narrative: Slight flushing/erythema of the face present Heart Score History: Moderately Suspicious ECG: Normal Age: >/= 65 years Risk Factors: >/= 3 Risk Factors or History of CAD Troponin: </= Normal Limit Score: 5 MDM MDM MDM Narrative Medical decision making narrative: Patient evaluated for chest pain but describes as a pressure. Started at rest. He is quite active today was not having chest pain making angina less likely. Chest pain is since resolved since being in the ER. Does report recent cough. CBC, BMP, D-dimer and delta high sensitive troponin all largely normal. No obvious source of his symptoms. Chest x-rays not show any acute pneumothorax, pneumonia or other acute process. Patient is clinically not appear fluid overloaded. Given that he is asymptomatic, has normal vital signs and normal cardiac workup at this time I feel that he can be discharged home with outpatient follow-up. Patient and agreeable this plan of care. Patient discharged home in stable condition. History & Record Review Additional record(s) reviewed:: Prior outpatient record Lab Data Attestation: I reviewed the patient's lab results. Labs: Laboratory Results - last 24 hr 07/20/24 07/20/24 21:09 23:25 WBC 6.7 RBC 4.68 Hgb 15.2 Hct 46.6 MCV 99.6 H MCH 32.5 H MCHC 32.6 RDW Std Deviation 46.7 H RDW Coeff of Beni 12.5 Plt Count 223 MPV 8.6 Immature Gran % (Auto) 1.200 H Neut % (Auto) 84.2 H Lymph % (Auto) 5.6 L Day % (Auto) 6.5 Eos % (Auto) 2.2 Baso % (Auto) 0.3 Absolute Neuts (auto) 5.7 Absolute Lymphs (auto) 0.38 L Nucleated RBC % 0 D-Dimer Quant (PE/DVT) 0.38 Sodium 135 L Potassium 4.5 Chloride 102 Carbon Dioxide 27.0 Anion Gap 7 BUN 26 H Creatinine 1.22 Estim Creat Clear Calc 50.36 Est GFR (MDRD) Af Amer 73 Est GFR (MDRD) Non-Af 60 BUN/Creatinine Ratio 21.3 H Glucose 125 H Calcium 8.8 Troponin I High Sens 6 7 Radiography Chest X-Ray - ED: 1 View, Read by ED Physician, Read by Radiologist and No Acute Disease Diagnostic Testing: Clinical Impression(s) from Imaging Studies Chest X-Ray 07/20/24 21:35 IMPRESSION: Degenerative changes, as described above. No demonstrated acute cardiopulmonary process. Electronically Signed: Vipul Ortiz MD at 22:22 EDT , Rhythm Strip Rhythm Strip: Sinus Rhythm Rate: 91 Ectopy: None EKG Initial EKG: Attestation: I personally reviewed and interpreted this EKG as follows: Interpretation: Sinus Rhythm Comments: Normal sinus rhythm at a rate of 91 bpm Normal axis Minimal voltage criteria for LVH Left anterior fascicular block No change compared to prior EKG Prior EKG tracings: available for review Prior: Unchanged Differential Diagnosis Chest pain/SOB: pulmonary embolism Reason(s) PE less likely: Positive for Well's <3, D-Dimer negative, not tachycardic and not hypoxic, ACS ACS: Positive for no evidence of ACS based on cardiac biomarkers and EKG without ischemia and pneumonia Reason(s) pneumonia less likely: Positive for no infiltrate on CXR and no noted fever Discharge Plan Triage Chief Complaint: Chest Pain ED Provider: Rivka Carlos Dx/Rx/DC Orders Clinical Impression: Chest pain Prescriptions: No Action Ultra CoQ10 75 mg capsule 30 mg PO DAILY diclofenac sodium 1 % gel 2 g topical PRN PRN (Reason: Pain) Rx Instructions: apply to single elbow, wrist or hand; for hand includes palm/fingers/back of hand cinnamon bark [Cinnamon] 500 mg capsule 1,000 mg PO DAILY Senior Probiotic 15 billion cell capsule 15,000 mmu cells PO DAILY Rx Instructions: administer with a meal ipratropium bromide 42 mcg (0.06 %) spray,non-aerosol 2 spray intranasal DAILY PRN (Reason: Congestion) Patient Comments: [place] 2 spray into both nostrils once a day as needed ketoconazole 2 % shampoo 1 applic topical DAILY Patient Comments: Wash scalp and face once a day, letting suds rest for a few minutes before rinsing ferrous sulfate 325 mg (65 mg iron) tablet,delayed release (DR/EC) 325 mg PO Q OTHER DAY Qty: 90 1RF losartan 50 mg tablet 25 mg PO BID Qty: 0 0RF azathioprine 50 mg tablet 50 mg PO QDAY Qty: 30 3RF aspirin 81 MG tablet,chewable 81 mg PO QHS Patient Comments: preventative for stroke heart WAS TOLD TO STOP FOR 08/20/18 for endo on 08/24/18 Rx Instructions: Takes in Evening multivitamin with folic acid 1 TABLET tablet 1 tab PO DAILY Patient Comments: suppliment Rx Instructions: Takes in the evening bilberry 100 mg capsule 1,000 mg PO QHS wheat dextrin 1 EACH powder in packet 1 ea PO DAILY levothyroxine 112 mcg tablet 112 mcg PO QHS omega 6-clz-vvi-fish oil [Fish Oil] 60-90-500 mg capsule 1 cap PO DAILY turmeric 400 mg capsule PO DAILY Patient Comments: pt unsure of dosage nitroglycerin 0.4 mg tablet, sublingual 0.4 mg sublingual Q5M PRN (Reason: chest pain) Qty: 25 3RF Rx Instructions: do not exceed 3 doses per episode rosuvastatin 5 mg tablet 5 mg PO QHS Qty: 90 3RF labetalol 200 mg tablet 200 mg PO BID Qty: 180 1RF isosorbide mononitrate 60 mg tablet extended release 24 hr 60 mg PO BID Qty: 180 3RF gabapentin 300 mg capsule 300 mg PO DAILY Qty: 90 0RF Rx Instructions: Take at 2:00 gabapentin 600 mg tablet 600 mg PO QHS 90 Days Qty: 90 1RF pantoprazole 40 mg tablet,delayed release (DR/EC) 40 mg PO DAILY Qty: 90 1RF sertraline 25 mg tablet 25 mg PO DAILY Qty: 90 1RF Primary Care Provider: Tania Jackson Referrals: Tania Jackson MD [Primary Care Provider] - Activity Restrictions/Additional Instructions: The exact cause of your symptoms is unclear however your workup today was very reassuring. Please follow-up with your primary care doctor and tassel snipper for further evaluation. Please return if you have a progression worsening your symptoms. Print Language: Norwegian Disposition Disposition: Home, Self Care
[2024-07-20 22:30] LABS: D-Dimer Quantitative (DVT/PE) 0.38 FEU/ug/m (0.27-0.49)
[2024-07-20 22:51] VITALS: BP 130/81; PULSE 89; RESP 18; O2SAT 95
[2024-07-20 23:24] VITALS: BP 130/73; PULSE 88; RESP 22; O2SAT 93
[2024-07-20 23:29] LABS: Reflex Troponin-HS? (from REC) Y
[2024-07-20 23:50] LABS: Troponin-I HS 7 pg/mL (3.0-78.0)
[2024-07-21] VITALS: BP 129/77; PULSE 89; RESP 18; O2SAT 95
[2024-07-21 00:48] VITALS: BP 134/77; PULSE 89; RESP 20; O2SAT 94
== END 2024-07-21 00:49 | disposition home or self-care (01) ==
PROVIDERS: Emergency Provider Emergency Medicine; PCP Internal Medicine; Referring Provider Emergency Medicine; Visit Provider Emergency Medicine
DX: R07.9 Chest pain, unspecified (principal); K50.90 Crohn's disease, unspecified, without complications; I10 Essential (primary) hypertension; E78.5 Hyperlipidemia, unspecified; F41.9 Anxiety disorder, unspecified; I25.10 Atherosclerotic heart disease of native coronary artery without angina pectoris; R53.1 Weakness; R19.7 Diarrhea, unspecified; R05.9 Cough, unspecified; Z95.5 Presence of coronary angioplasty implant and graft; K21.9 Gastro-esophageal reflux disease without esophagitis; E03.9 Hypothyroidism, unspecified; G47.33 Obstructive sleep apnea (adult) (pediatric); Z99.89 Dependence on other enabling machines and devices
CPT/HCPCS: 71045; 80048; 84484; 85025; 85379; 93005; 99285

== ENCOUNTER → 2024-08-02 | Outpatient (CLI) | payer MEDICARE, OTHER, SELFPAY ==
[2022-03-26 12:12] VITALS: BMI 28.0
[2024-08-02 10:12] LABS: Erythrocyte Sedimentation Rate 9 mm/hr (0-20)
[2024-08-02 10:15] LABS: Absolute Lymphocyte Count 0.51 X10^3/uL (0.83-4.51); Absolute Neutrophil Count 2.8 X10^3/uL (2.0-7.7); Basophil# 0.03 X10^3/uL; Basophil% 0.7 % (0-1); Eosinophil# 0.21 X10^3/uL; Hematocrit 43.5 % (40-54); Hemoglobin 14.7 g/dL (13.0-16.5); Lymphocyte # 0.51 X10^3/ul (0.83-4.51); Lymphocyte % 12.3 % (19-41); Mean Corp Hgb Conc 33.8 g/dL (32-36); Mean Corpuscular Hgb 32.9 pg (27.0-32.0); Mean Corpuscular Volume 97.3 fL (80-94); Mean Platelet Vol. 8.8 fl (6.2-12.0); Monocyte# 0.59 X10^3/uL; Monocyte% 14.2 % (0-10); NRBC Flagged by Analyzer 0 % (0-5); Neutrophil % 67.3 % (47-70); POSITIVE DIFFERENTIAL YES; Platelet Count 308 K/mm3 (150-450); RBC Distribution Width SD 43.1 fl (35.1-43.9); Red Blood Count 4.47 M/mm3 (4.6-6.2); White Blood Count 4.2 K/mm3 (4.4-11.0)
[2024-08-02 10:36] LABS: AST(SGOT) 23 U/L (15-37); Alanine Aminotransfer ALT/SGPT 31 U/L (16-61); Albumin, Serum 3.3 g/dL (3.2-5.0); Alkaline Phosphatase 95 U/L (45-117); Anion Gap 5 (5-15); BUN 19 mg/dL (7-18); BUN/Creat Ratio 18.8 RATIO (10-20); CRP 4.13 mg/L (0.0-3.0); Calcium,Total 9.2 mg/dL (8.5-10.1); Chloride 102 mmol/L (98-107); Creatinine, Serum 1.01 mg/dL (0.70-1.30); EST Glomerular Filtration Rate 75 mL/min (>60); Est Glom Filt Rate - Afr Amer 91 mL/min (>60); Globulin 3.4 g/dL (2.2-4.2); Glucose 108 mg/dL (74-106); Potassium 4.3 mmol/L (3.5-5.1); Protein, Total 6.7 g/dL (6.4-8.2); Sodium Level 136 mmol/L (136-145)
== END | disposition home or self-care (01) ==
LOC: MTLAB 08:17
PROVIDERS: PCP Internal Medicine; Referring Provider Internal Medicine Gastroenterology; Visit Provider Internal Medicine Gastroenterology
DX: K50.00 Crohn's disease of small intestine without complications (principal)
CPT/HCPCS: 36415; 80053; 85025; 85652; 86140

== ENCOUNTER → 2024-08-30 | Outpatient (CLI) | payer MEDICARE, OTHER, SELFPAY ==
[2022-03-26 12:12] VITALS: BMI 28.0
--- NOTE | 2024-08-30 10:18 | RAD_ITS ---
STUDY: X-RAY CHEST REASON FOR EXAM: Male, 83 years old. Cough TECHNIQUE: PA and lateral views of the chest. COMPARISON: Comparison is made with prior study dated July 20, 2024. FINDINGS: Stable mild increased markings at the lung bases suggestive of atelectasis superimposed on mild bibasilar scarring. There is no demonstrated pleural abnormality. Normal size heart. Normal mediastinum and tati. Normal visualized pulmonary arteries. There is atherosclerotic calcification of the aortic arch with tortuosity. Normal visualized thoracic spine. Normal visualized ribs, clavicles, and shoulders. There is no demonstrated abnormality of the visualized soft tissue structures of the upper abdomen. RAD/Chest PA and Lateral IMPRESSION: Increased linear markings at the lung bases suggest bibasilar linear atelectasis and/or scarring. There has been essentially no change. Electronically Signed: Narciso Zamarripa MD at 10:51 EST ,
[2024-08-30 13:17] LABS: Thyroid Stim Hormone (TSH) 0.188 uIU/mL (0.358-3.740)
== END | disposition home or self-care (01) ==
PROVIDERS: PCP Internal Medicine; Referring Provider Physician Assistant; Visit Provider Physician Assistant
DX: R05.9 Cough, unspecified (principal); E03.9 Hypothyroidism, unspecified
CPT/HCPCS: 36415; 71046; 84443

== ENCOUNTER → 2024-09-20 | Outpatient (CLI) | payer MEDICARE, OTHER, SELFPAY ==
[2024-09-07 11:18] VITALS: BMI 28.0
--- NOTE | 2024-09-20 12:46 | ECHOD_ITS ---
Version 2 Reason For Study: Dyspnea/SOB Procedure This was a 2D Doppler, Color Flow transthoracic echocardiogram. Contrast injection was performed. Exam performed in department. Left Ventricle Normal LV size. Left ventricular systolic function is normal. The left ventricular ejection fraction is 50 %. No regional wall motion abnormalities noted. Right Ventricle Normal RV size. Normal systolic function. Atria Normal left atrium. Normal right atrium. Mitral Valve Normal mitral valve. Tricuspid Valve Normal tricuspid valve. Mild tricuspid valve insufficiency. Pulmonary artery systolic pressure is 30 mmHg. Aortic Valve The aortic valve is not well visualized. Pulmonic Valve Normal pulmonic valve. Great Vessels Normal aortic root. The pulmonary artery is normal size. Normal inferior vena cava. Pericardium/Pleural No pericardial effusion. Medication Diluted definity 2ml given slow IV push to enhance endocardial definition. MMode/2D Measurements & Calculations LVIDd: 5.2 cm IVSd: 1.0 cm asc Aorta Diam: 3.6 cm LVIDs: 3.8 cm LVPWd: 0.98 cm RVDd: 4.1 cm FS: 27.8 % LAV(MOD-bp): 42.3 ml LVAd ap4: 31.9 cm2 SV(MOD-sp4): 54.2 ml LAV(MOD-bp) Indexed: 21.5 ml/m2 LVLd ap4: 7.8 cm SI(MOD-sp4): 27.5 ml/m2 LAV(MOD-sp2): 45.7 ml EDV(MOD-sp4): 109.7 ml LAV(MOD-sp4): 38.1 ml EDV(sp4-el): 110.8 ml LVAs ap4: 21.3 cm2 LVLs ap4: 7.1 cm ESV(MOD-sp4): 55.5 ml ESV(sp4-el): 54.5 ml EF(MOD-sp4): 49.4 % EF(sp4-el): 50.8 % SV(sp4-el): 56.3 ml LA A4 area: 15.6 cm2 LA dimension(2D): 4.1 cm RA A4 area: 10.3 cm2 TAPSE: 2.0 cm Time Measurements MV dec time: 0.37 sec Doppler Measurements & Calculations MV E max gt: 55.3 cm/sec Lat Peak E' Gt: 6.9 cm/sec Med Peak E' Gt: 6.2 cm/sec MV A max gt: 84.3 cm/sec E/E' lat: 8.1 E/E' med: 9.0 MV E/A: 0.66 MV dec slope: 150.6 cm/sec2 Ao V2 max: 103.9 cm/sec LV V1 max: 86.4 cm/sec Ao max P.3 mmHg LV V1 max P.0 mmHg Ao V2 mean: 76.6 cm/sec Ao mean P.5 mmHg Ao V2 VTI: 21.0 cm PA V2 max: 86.7 cm/sec PI end-d gt: 137.7 cm/sec TR max gt: 263.6 cm/sec TR max P.8 mmHg ECHO/Echo Complete W/ Contrast Interpretation Summary Normal LV size. Left ventricular systolic function is normal. The left ventricular ejection fraction is 50 %. Pulmonary artery systolic pressure is 30 mmHg. Contrast injection was performed. Ordering Physician: Tania Jackson Referring Physician: Tania Jackson Performed By: Brandee Lauren, MARGARITO, RVT
== END | disposition home or self-care (01) ==
LOC: CVS 12:44
PROVIDERS: PCP Internal Medicine; Referring Provider Internal Medicine; Visit Provider Internal Medicine
DX: R06.00 Dyspnea, unspecified (principal)
CPT/HCPCS: 93306; Q9957; A4216; C8929

== ENCOUNTER → 2024-10-03 | Outpatient (CLI) | payer MEDICARE, OTHER, SELFPAY ==
[2024-09-07 11:18] VITALS: BMI 28.0
== END | disposition home or self-care (01) ==
LOC: LABSPEC 16:54
PROVIDERS: PCP Internal Medicine; Referring Provider Otolaryngology; Visit Provider Otolaryngology
DX: J32.8 Other chronic sinusitis (principal)

== ENCOUNTER → 2024-10-12 | Outpatient (CLI) | payer MEDICARE, OTHER, SELFPAY ==
[2024-09-07 11:18] VITALS: BMI 28.0
--- NOTE | 2024-10-12 13:44 | CT_ITS ---
INDICATION: Cough, Shortness of breath EXAMINATION: CT CHEST WITH CONTRAST - CT Chest W/ Contrast Injection TECHNIQUE: Helically acquired images were obtained of the chest following IV contrast. The protocol utilizes one or more of the following dose reduction techniques: automated exposure control, adjustment of mA and/or kV according to patient size,and/or use of iterative reconstruction technique. IV Contrast dosage and agent: 100 cc of Isovue-300 RADIATION DOSAGE (If Supplied By Facility): CTDIvol = ( 11.87 ) mGy, DLP = ( 524.40 ) mGycm COMPARISON: No relevant prior comparison study available FINDINGS: LUNGS, PLEURA AND LARGE AIRWAYS: There is minimal lower lobe dependent atelectasis. No pleural effusion or thickening. No pneumothorax. THYROID: No thyroid lesions. HEART AND PERICARDIUM: Heart size is normal. No pericardial effusion. There is a coronary artery stent in place. There are coronary artery calcifications. VESSELS: Thoracic aorta is not dilated. No aortic dissection. No obvious central pulmonary embolism although this study was not performed with the pulmonary embolism protocol. MEDIASTINUM AND PAULINE: No mediastinal or hilar adenopathy. Esophagus is unremarkable. No hiatal hernia. UPPER ABDOMEN: The limited images of the upper abdomen demonstrate partial visualization of left renal cyst. BONES: No suspicious lytic or blastic abnormality. CT/Chest WITH Contrast IMPRESSION: Minimal lower lobe dependent atelectasis. Atherosclerosis. [employer] RECOMMENDATIONS FOR FOLLOW-UP OF SMALL SOLID LUNG NODULES DETECTED INCIDENTALLY ON CT (for PATIENTS ? 35 YEARS OF AGE with no known extra-pulmonary cancer and no clinical evidence of infection). Electronically Signed: Amalia Stock MD at 16:59 EST ,
[2024-10-12 14:38] LABS: CREATININE FINGERSTICK < 1.0 mg/dL (0.70-1.30); EGFR FINGERSTICK > 60.0000 mL/min (>60)
== END | disposition home or self-care (01) ==
LOC: CT 13:43
PROVIDERS: PCP Internal Medicine; Referring Provider Internal Medicine; Visit Provider Internal Medicine
DX: R05.9 Cough, unspecified (principal); R06.02 Shortness of breath
CPT/HCPCS: 71260; Q9967

== ENCOUNTER → 2024-10-25 | Outpatient (CLI) | payer MEDICARE, OTHER, SELFPAY ==
[2024-09-07 11:18] VITALS: BMI 28.0
[2024-10-25 10:36] LABS: Thyroid Stim Hormone (TSH) 0.527 uIU/mL (0.358-3.740)
== END | disposition home or self-care (01) ==
LOC: MTLAB 08:07
PROVIDERS: PCP Internal Medicine; Referring Provider Internal Medicine; Visit Provider Internal Medicine
DX: E03.9 Hypothyroidism, unspecified (principal)
CPT/HCPCS: 84443

== ENCOUNTER → 2024-12-05 | Outpatient (CLI) | payer MEDICARE, OTHER, SELFPAY ==
[2024-09-07 11:18] VITALS: BMI 28.0
[2024-12-05 13:08] LABS: AST(SGOT) 22 U/L (<=37); Alanine Aminotransfer ALT/SGPT 18 U/L (<=46); Albumin, Serum 4.1 g/dL (3.4-4.8); Alkaline Phosphatase 90 U/L (40-129); Bilirubin, Direct 0.28 mg/dL (0.00-0.30); Globulin 2.3 g/dL (2.2-4.2); Protein, Total 6.4 g/dL (5.9-8.4); Total Bilirubin 0.62 mg/dL (0.00-1.30)
[2024-12-05 18:32] LABS: Cholesterol 157 mg/dL (<=200); High Density Lipoprotein 40 mg/dL; Low Density Lipoprotein Calc. 72 mg/dL; Triglycerides 224 mg/dL; Very Low Density Lipoprotein 45 mg/dL (5-40); cholesterol:hdl ratio screen 3.91
== END | disposition home or self-care (01) ==
LOC: MTLAB 08:10
PROVIDERS: PCP Internal Medicine; Referring Provider Nurse Practitioner Gerontology; Visit Provider Nurse Practitioner Gerontology
DX: E78.00 Pure hypercholesterolemia, unspecified (principal)
CPT/HCPCS: 36415; 80061; 80076

== ENCOUNTER → 2024-12-07 | Outpatient (CLI) | payer MEDICARE, OTHER, SELFPAY ==
[2024-09-07 11:18] VITALS: BMI 28.0
[2024-12-07 16:48] LABS: Absolute Lymphocyte Count 0.46 X10^3/uL (0.83-4.51); Basophil# 0.01 X10^3/uL; Basophil% 0.1 % (0-1); Hematocrit 36.7 % (40-54); Hemoglobin 12.8 g/dL (13.0-16.5); Lymphocyte # 0.46 X10^3/ul (0.83-4.51); Lymphocyte % 4.5 % (19-41); Mean Corp Hgb Conc 34.9 g/dL (32-36); Mean Corpuscular Hgb 32.7 pg (27.0-32.0); Mean Corpuscular Volume 93.9 fL (80-94); Mean Platelet Vol. 9.2 fl (6.2-12.0); Monocyte# 0.66 X10^3/uL; Monocyte% 6.5 % (0-10); NRBC Flagged by Analyzer 0 % (0-5); Neutrophil # 9.02 X10^3/uL (2.7-7.7); Neutrophil % 88.5 % (47-70); POSITIVE DIFFERENTIAL YES; Platelet Count 257 K/mm3 (150-450); RBC Distribution Width CV 11.7 % (11.6-14.6); RBC Distribution Width SD 40.2 fl (35.1-43.9); Red Blood Count 3.91 M/mm3 (4.6-6.2); White Blood Count 10.2 K/mm3 (4.4-11.0)
[2024-12-07 18:00] LABS: ALB/GLOB Ratio 1.7 RATIO (0.9-2.4); AST(SGOT) 23 U/L (<=37); Alanine Aminotransfer ALT/SGPT 19 U/L (<=46); Albumin, Serum 4.3 g/dL (3.4-4.8); Alkaline Phosphatase 96 U/L (40-129); Anion Gap 13 (5-15); BUN 44 mg/dL (4-19); BUN/Creat Ratio 37.8 RATIO (10-20); Calcium,Total 9.4 mg/dL (7.6-11.0); Carbon Dioxide 21.5 mmol/L (21.0-32.0); Chloride 101 mmol/L (98-108); Creatinine, Serum 1.17 mg/dL (0.70-1.20); EST Glomerular Filtration Rate 62 (>60); Globulin 2.5 g/dL (2.2-4.2); Glucose 129 mg/dL (70-99); Potassium 4.7 mmol/L (3.3-5.1); Pro- Brain NATRIURETIC PEPTIDE 429 pg/mL (<=1800); Protein, Total 6.8 g/dL (5.9-8.4); Sodium Level 136 mmol/L (133-145); Total Bilirubin 0.62 mg/dL (0.00-1.30)
== END | disposition home or self-care (01) ==
LOC: BIMLAB 16:08
PROVIDERS: PCP Internal Medicine; Referring Provider Internal Medicine; Visit Provider Internal Medicine
DX: R06.02 Shortness of breath (principal); I10 Essential (primary) hypertension
CPT/HCPCS: 36415; 80053; 83880; 85025

== ENCOUNTER → 2024-12-09 | Outpatient (CLI) | payer MEDICARE, OTHER, SELFPAY ==
[2024-09-07 11:18] VITALS: BMI 28.0
== END | disposition home or self-care (01) ==
LOC: MTLAB 09:11
PROVIDERS: PCP Internal Medicine; Referring Provider Internal Medicine; Visit Provider Internal Medicine
DX: R79.89 Other specified abnormal findings of blood chemistry (principal)
CPT/HCPCS: 82274

== ENCOUNTER 2024-12-28 14:16 | Day surgery (SDC) | payer MEDICARE, OTHER, SELFPAY ==
[2024-09-07 11:18] VITALS: BMI 28.0
--- NOTE | 2024-12-23 17:03 | PAT.ANE_ITS ---
Pre-Assessment Diagnosis/Proposed Procedure Planned Operative Procedure(s): EGD Anesthesia History Anesthesia History - terrazzo helper: Anesthesia History - terrazzo helper Hx Hospitalization No 12/23/24 09:08 Any Problems With Anesthesia No 12/23/24 09:08 Cholinesterase deficiency No 12/23/24 09:08 You/Your Family Experience No 12/23/24 09:08 fever (hyperthermia) with Relationship Recent Exposure to Contagious No 09/07/24 11:18 Disease Does patient have nerve No 12/23/24 09:08 stimulator Patient instructed to have device shut off --Does patient have Pacemaker or ICD? When Was Last Pacemaker Check QUESTION #4 FULL TEXT: You/Your Family Experience fever (hyperthermia) with Anesthesia Last Oral Intake Last Oral intake: Last Oral Intake NPO since Meds taken in AM with sips of water? Meds patient instructed to take am of surgery PONV PONV - terrazzo helper: PONV - terrazzo helper Female No 12/23/24 09:08 HX of Motion Sickness No 12/23/24 09:08 HX of N/V After Surgery No 12/23/24 09:08 Non-Smoker Yes 12/23/24 09:08 Duration of Surgery greater No 12/23/24 09:08 than 60 minutes Number of Risk Factors 1 12/23/24 09:08 PONV Score Low Risk 12/23/24 09:08 Height & Weight Height & Weight: Anesthesia: Height & Weight Height 5 ft 8 in 12/07/24 15:20 Respiratory Assessment Respiratory Assessment - terrazzo helper: Respiratory Tract Infection Hx - terrazzo helper Hx Respiratory Tract Infection No 12/23/24 09:08 STOP Sleep Apnea STOP Sleep Apnea - terrazzo helper: STOP Sleep Apnea - terrazzo helper Hx Hypertension Yes 12/23/24 09:08 Hx Sleep Apnea Yes 12/23/24 09:08 CPAP Yes: NON COMPLIANT 12/23/24 09:08 BIPAP No 12/23/24 09:08 Do you snore loudly (louder than talking or can be heard Do you often feel tired/ fatigued/ sleepy during daytime? Has anyone observed you stop breathing during sleep? STOP Results Positive 12/23/24 09:08 QUESTION #5 FULL TEXT : Do you snore loudly (louder than talking or can be heard through closed doors)? 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 Specify any problems Hx of Preganancy in last 3 N/A 12/23/24 09:08 Months Nurse Filling Out Transfusion JZOLLINGE 12/23/24 09:08 & Questions: Date: 12/23/24 12/23/24 09:08 Time: 09:11 12/23/24 09:08 Patient unable to answer at this time (ie. confused, unrespo /Reproduction History /Reproductive History - terrazzo helper: /Reproductive Hx- terrazzo helper Hx Now No 12/23/24 09:08 Gestational Age (in weeks): EDC: Hx Hx Para Hx Section SAB No 12/23/24 09:08 [facility] Medical History (Updated 12/23/24 @ 09:26 by Radha Viramontes) Depression Easy bruising Heartburn Sleep apnea Chronic cough Abnormal SVO-bs-jiddgrqxpa ratio Lightheadedness Shortness of breath Acute sinusitis, unspecified URI (upper respiratory infection) Tremor History of Holter monitoring History of ulceration Elevated liver enzymes Elevated C-reactive protein (CRP) Rosacea Psoriasis Loss of hearing High cholesterol History of Crohn's disease Non-smoker History of echocardiogram History of stress test Cardiology follow-up encounter Abdominal pain Electrolyte abnormality Acute maxillary sinusitis, unspecified Viral syndrome Malaise and fatigue Macrocytosis HTN (hypertension) Debility Vertigo CHERELLE (acute kidney injury) CAD (coronary artery disease) Wears hearing aid Wears glasses Prostate disease Back pain Migraine headache History of hiatal hernia CPAP (continuous positive airway pressure) dependence Asthma Umbilical hernia Lumbar back pain with radiculopathy affecting right lower extremity Piriformis syndrome Degenerative disc disease Bilateral knee pain 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 Thyroid disease Essential hypertension Anxiety Atherosclerotic heart disease of [place] coronary artery with other forms of angina pectoris EH (obstructive sleep apnea) Crohns disease Nonrheumatic tricuspid (valve) insufficiency Hypothyroidism Arthritis BPH (benign prostatic hyperplasia) Long-term current use of high risk medication other than anticoagulant Restless leg syndrome Hyperlipidemia Gastroesophageal reflux disease Home Medications ?Medication ?Instructions ?Recorded ?Last Taken ?Type aspirin 81 mg chewable tablet 81 mg PO QHS Heart 03/2004/28/24 History multivitamin with folic acid 400 1 tab PO DAILY Vitami n 03/20/14 05/01/24 History mcg tablet coenzyme Q10 75 mg capsule (Ultra 30 mg PO DAILY pain 06/01/19 05/01/24 History CoQ10) wheat dextrin 3 gram/3.5 gram oral 1 ea PO DAILY suppl ement 09/26/19 05/01/24 History powder packet diclofenac sodium 1 % topical gel 2 g topical PRN PRN Pain 07/30/21 Unknown History cinnamon bark 500 mg capsule 1,000 mg PO DAILY pain 05/01/24 History (Cinnamon) bilberry 100 mg capsule 1,000 mg PO QHS Eye function 10/31/22 05/01/24 History ipratropium bromide 42 mcg (0.06 2 spray intranasal DA NEIDA PRN 10/31/22 05/01/24 History %) nasal spray Congestion lactobacillus combination no.4 15 15,000 mmu cells PO DAILY 01/12/23 05/01/24 History billion cell capsule (Senior Probiotic) ketoconazole 2 % shampoo 1 applic topical DAILY 07/0805/01/24 History ferrous sulfate 325 mg (65 mg 325 mg PO Q OTHER DAY #9 0 tabs 02/19/24 05/01/24 Rx iron) tablet,delayed release isosorbide mononitrate 60 mg 60 mg PO BID patient jr ot cut 05/30/24 Unknown Rx tablet,extended release 24 hr the 120 mg tablet in carmelita f #180 tabs pantoprazole 40 mg tablet,delayed 40 mg PO DAILY #90 t abs 06/22/24 Unknown Rx release nitroglycerin 0.4 mg sublingual 0.4 mg sublingual Q5-1 5M #25 08/29/24 Unknown Rx tablet TABLETS Boswellia chilo extract 307 mg mg PO 09/07/24 Unknow n History tablet benzonatate 100 mg capsule 100 mg PO TID PRN cough #60 caps 09/07/24 Unknown Rx gabapentin 600 mg tablet 600 mg PO QHS 3 months #90 t abs 09/07/24 Unknown Rx levothyroxine 112 mcg tablet 112 mcg PO QHS Thyroid #9 0 tabs 09/07/24 Unknown Rx omega 6-jle-xaa-fish oil 60 mg-90 1 cap PO DAILY suppl ement 09/07/24 Unknown History mg-500 mg capsule (Fish Oil) turmeric 400 mg capsule mg PO DAILY crohns 09/07/24 Unknown History beclomethasone dipropionate 80 1 inh inhalation BID #1 0.6 grams 09/26/24 Unknown Rx mcg/actuation HFA breath activated aerosol (Qvar RediHaler) labetalol 200 mg tablet 200 mg PO BID #180 TABLETS 0 10/12/24 Unknown Rx gabapentin 300 mg capsule 300 mg PO DAILY PRN pain Unknown History losartan 25 mg tablet 25 mg PO BID #180 tabs 12/19 Unknown Rx rosuvastatin 5 mg tablet 5 mg PO QHS cholesterol #90 tabs 12/20/24 Unknown Rx sertraline 25 mg tablet 25 mg PO DAILY #90 tabs 04/0 10/15 Unknown Rx Allergy/AdvReac Type Severity Reaction Status Date / Time amlodipine (From Norvasc) AdvReac Intermediate upset Verified 12/23/24 08:52 stomach amoxicillin (From Augmentin) AdvReac Intermediate Nausea/Vom/ Verified 12/23/24 08:52 Diarrhea clavulanic acid (From AdvReac Intermediate Nausea/Vom/ Verified 12/23/24 08:52 Augmentin) Diarrhea lisinopril AdvReac Intermediate cough Verified 12/23/24 08:52 atorvastatin (From Lipitor) AdvReac Pain in Verified 12/23/24 08:52 joints gemfibrozil (From Lopid) AdvReac Pain in Verified 12/23/24 08:52 joints niacin AdvReac Other Verified 12/23/24 08:52 Family History Grandfather CVA (cerebral vascular accident) Depression Brother COPD (chronic obstructive pulmonary disease) Grandmother Depression Son Arthritis Father Arthritis CAD (coronary artery disease) Mother Hypertension Hyperlipidemia Pacemaker Other Cancer Surgical History Hx of colonoscopy History of umbilical hernia repair (~2013) History of partial colectomy (~1993) History of bilateral cataract extraction S/P umbilical hernia repair, follow-up exam Hx of tonsillectomy History of coronary artery stent placement (09/07/18) H/O vasectomy History of left heart catheterization (11/12/18) History of prostate surgery Hx of appendectomy H/O hemorrhoidectomy (~1989) eye lesion removal Social History household members: spouse housing: house current occupational status: retired pets and animals: No Smoking Status: Never smoker second hand exposure: No alcohol intake: never substance use type: does not use caffeine: No what type of physical activity do you participate in: walking frequency: 5-6 times per week Audit: Pertinent Findings Pertinent Findings EKG Perinent findings: July 20, 2024. Normal sinus rhythm. Left anterior fascicular block. Minimal LVH. Stress test pertinent findings: April 25, 2024. Normal pharmacologic myocardial perfusion stress test. Previous anterior septal infarct cannot be completely excluded. Echo (EF%) pertinent findings: September 20, 2024. Left ventricular ejection fraction is 50%. PA systolic pressure is 30 mmHg. Aortic valve is not well- visualized. Consult pertinent findings: December 13, 2024. Leonor PRAKASH. 1. History of coronary artery stent placement-status post CAMERON of the mid LAD and CAMERON of the D1. Last stress test in April 2024 was negative for ischemia. No further cardiac testing needed. 2. Hypertension?[id number]. Recommendation Anesthesia Recommendation Anesthesia recommendation: OPTIMIZED for anesthesia
[2024-12-28] VITALS (7 sets, daily range): BP systolic 105–150; BP diastolic 66–78; PULSE 63–79; RESP 16–18; TEMP 36–36.6; O2SAT 95–97; BMI 29.1
--- NOTE | 2024-12-28 14:25 | PRE.ANES_ITS ---
ASA Classification* ASA Classification ASA Classification: 3 Assessment & Plan Anesthesia* Anesthesia Assessment Anesthesia Assessment: Discussed sedation and/or anesthesia options, risks, benefits, and alternatives with patient/parents/legal guardian/POA. Questions invited. The patient/parents/legal guardian/POA seems to understand and agrees to proceed with anesthesia plan. Reviewed the physical assessment, medical history, allergy history and patient home medications list prior to surgery/procedure/anesthetic and documented any changes. Performed airway and anesthesia risk assessments. Anesthesia Type Anesthesia Type: MAC Anesthesia Focused Assessment* Airway Assessment Mouth opens: >3 cm Mallampati Score: II Focused Labs Anesthesia Preop lab: CBC WBC 10.2 K/mm3 (4.4-11.0) 12/07/24 16:08 12/07/24 RBC 3.91 M/mm3 (4.6-6.2) L 12/07/24 16:08 12/07/24 Hgb 12.8 g/dL (13.0-16.5) L 12/07/24 16:08 5 Hct 36.7 % (40-54) L 12/07/24 16:08 12/07/24 Plt Count 257 K/mm3 (150-450) 12/07/24 16:08 12/07/24 CHEMISTRY Potassium 4.7 mmol/L (3.3-5.1) 12/07/24 16:08 12/07/24 Sodium 136 mmol/L (133-145) 12/07/24 16:08 12/07/24 Magnesium 2.1 mg/dL (1.6-2.6) 01/05/24 10:40 01/05/24 Phosphorus 2.9 mg/dL (2.5-4.9) 01/05/24 10:40 01/05/24 BUN 44 mg/dL (4-19) H 12/07/24 16:08 12/07/24 Creatinine 1.17 mg/dL (0.70-1.20) 12/07/24 16:08 12/07/24 Glucose 129 mg/dL (70-99) H 12/07/24 16:08 12/07/24 TSH 0.527 uIU/mL (0.358-3.740) 10/25/24 08:11 01/13 COAG PT 13.6 SECONDS (11.7-14.9) 01/05/24 10:40 Pre-Assessment Diagnosis/Proposed Procedure Planned Operative Procedure(s): EGD Anesthesia History Anesthesia History - director of annual giving: Anesthesia History - director of annual giving Hx Hospitalization No 12/23/24 09:08 Any Problems With Anesthesia No 12/23/24 09:08 Cholinesterase deficiency No 12/23/24 09:08 You/Your Family Experience No 12/23/24 09:08 fever (hyperthermia) with Relationship Recent Exposure to Contagious No 09/07/24 11:18 Disease Does patient have nerve No 12/23/24 09:08 stimulator Patient instructed to have device shut off --Does patient have Pacemaker or ICD? When Was Last Pacemaker Check QUESTION #4 FULL TEXT: You/Your Family Experience fever (hyperthermia) with Anesthesia Last Oral Intake Last Oral intake: Last Oral Intake NPO since Meds taken in AM with sips of water? Meds patient instructed to take am of surgery PONV PONV - director of annual giving: PONV - director of annual giving Female No 12/23/24 09:08 HX of Motion Sickness No 12/23/24 09:08 HX of N/V After Surgery No 12/23/24 09:08 Non-Smoker Yes 12/23/24 09:08 Duration of Surgery greater No 12/23/24 09:08 than 60 minutes Number of Risk Factors 1 12/23/24 09:08 PONV Score Low Risk 12/23/24 09:08 Height & Weight Height & Weight: Anesthesia: Height & Weight Height 5 ft 8 in 12/13/24 07:28 Respiratory Assessment Respiratory Assessment - director of annual giving: Respiratory Tract Infection Hx - director of annual giving Hx Respiratory Tract Infection No 12/23/24 09:08 STOP Sleep Apnea STOP Sleep Apnea - director of annual giving: STOP Sleep Apnea - director of annual giving Hx Hypertension Yes 12/23/24 09:08 Hx Sleep Apnea Yes 12/23/24 09:08 CPAP Yes: NON COMPLIANT 12/23/24 09:08 BIPAP No 12/23/24 09:08 Do you snore loudly (louder than talking or can be heard Do you often feel tired/ fatigued/ sleepy during daytime? Has anyone observed you stop breathing during sleep? STOP Results Positive 12/23/24 09:08 QUESTION #5 FULL TEXT : Do you snore loudly (louder than talking or can be heard through closed doors)? 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 Specify any problems Hx of Preganancy in last 3 N/A 12/23/24 09:08 Months Nurse Filling Out Transfusion JZOLLINGE 12/23/24 09:08 & Questions: Date: 12/23/24 12/23/24 09:08 Time: 09:11 12/23/24 09:08 Patient unable to answer at this time (ie. confused, unrespo /Reproduction History /Reproductive History - director of annual giving: /Reproductive Hx- director of annual giving Hx Now No 12/23/24 09:08 Gestational Age (in weeks): EDC: Hx Hx Para Hx Section SAB No 12/23/24 09:08 [facility] Medical History Depression Easy bruising Heartburn Sleep apnea Chronic cough Abnormal TPW-dw-kqxzohwlzi ratio Lightheadedness Shortness of breath Acute sinusitis, unspecified URI (upper respiratory infection) Tremor History of Holter monitoring History of ulceration Elevated liver enzymes Elevated C-reactive protein (CRP) Rosacea Psoriasis Loss of hearing High cholesterol History of Crohn's disease Non-smoker History of echocardiogram History of stress test Cardiology follow-up encounter Abdominal pain Electrolyte abnormality Acute maxillary sinusitis, unspecified Viral syndrome Malaise and fatigue Macrocytosis HTN (hypertension) Debility Vertigo CHERELLE (acute kidney injury) CAD (coronary artery disease) Wears hearing aid Wears glasses Prostate disease Back pain Migraine headache History of hiatal hernia CPAP (continuous positive airway pressure) dependence Asthma Umbilical hernia Lumbar back pain with radiculopathy affecting right lower extremity Piriformis syndrome Degenerative disc disease Bilateral knee pain 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 Thyroid disease Essential hypertension Anxiety Atherosclerotic heart disease of [place] coronary artery with other forms of angina pectoris EH (obstructive sleep apnea) Crohns disease Nonrheumatic tricuspid (valve) insufficiency Hypothyroidism Arthritis BPH (benign prostatic hyperplasia) Long-term current use of high risk medication other than anticoagulant Restless leg syndrome Hyperlipidemia Gastroesophageal reflux disease Home Medications ?Medication ?Instructions ?Recorded ?Last Taken ?Type aspirin 81 mg chewable tablet 81 mg PO QHS Heart 03/2004/28/24 History multivitamin with folic acid 400 1 tab PO DAILY Vitami n 03/20/14 05/01/24 History mcg tablet coenzyme Q10 75 mg capsule (Ultra 30 mg PO DAILY pain 06/01/19 05/01/24 History CoQ10) wheat dextrin 3 gram/3.5 gram oral 1 ea PO DAILY suppl ement 09/26/19 05/01/24 History powder packet diclofenac sodium 1 % topical gel 2 g topical PRN PRN Pain 07/30/21 Unknown History cinnamon bark 500 mg capsule 1,000 mg PO DAILY pain 05/01/24 History (Cinnamon) bilberry 100 mg capsule 1,000 mg PO QHS Eye function 10/31/22 05/01/24 History ipratropium bromide 42 mcg (0.06 2 spray intranasal DA NEIDA PRN 10/31/22 05/01/24 History %) nasal spray Congestion lactobacillus combination no.4 15 15,000 mmu cells PO DAILY 01/12/23 05/01/24 History billion cell capsule (Senior Probiotic) ketoconazole 2 % shampoo 1 applic topical DAILY 07/0805/01/24 History ferrous sulfate 325 mg (65 mg 325 mg PO Q OTHER DAY #9 0 tabs 02/19/24 05/01/24 Rx iron) tablet,delayed release isosorbide mononitrate 60 mg 60 mg PO BID patient jr ot cut 05/30/24 Unknown Rx tablet,extended release 24 hr the 120 mg tablet in carmelita f #180 tabs pantoprazole 40 mg tablet,delayed 40 mg PO DAILY #90 t abs 06/22/24 Unknown Rx release nitroglycerin 0.4 mg sublingual 0.4 mg sublingual Q5-1 5M #25 08/29/24 Unknown Rx tablet TABLETS Boswellia chilo extract 307 mg mg PO 09/07/24 Unknow n History tablet benzonatate 100 mg capsule 100 mg PO TID PRN cough #60 caps 09/07/24 Unknown Rx gabapentin 600 mg tablet 600 mg PO QHS 3 months #90 t abs 09/07/24 Unknown Rx levothyroxine 112 mcg tablet 112 mcg PO QHS Thyroid #9 0 tabs 09/07/24 Unknown Rx omega 7-auw-iia-fish oil 60 mg-90 1 cap PO DAILY suppl ement 09/07/24 Unknown History mg-500 mg capsule (Fish Oil) turmeric 400 mg capsule mg PO DAILY crohns 09/07/24 Unknown History beclomethasone dipropionate 80 1 inh inhalation BID #1 0.6 grams 09/26/24 Unknown Rx mcg/actuation HFA breath activated aerosol (Qvar RediHaler) labetalol 200 mg tablet 200 mg PO BID #180 TABLETS 0 10/12/24 Unknown Rx gabapentin 300 mg capsule 300 mg PO DAILY PRN pain Unknown History losartan 25 mg tablet 25 mg PO BID #180 tabs 12/19 Unknown Rx rosuvastatin 5 mg tablet 5 mg PO QHS cholesterol #90 tabs 12/20/24 Unknown Rx sertraline 25 mg tablet 25 mg PO DAILY #90 tabs 0410/15 Unknown Rx Allergy/AdvReac Type Severity Reaction Status Date / Time amlodipine (From Norvasc) AdvReac Intermediate upset Verified 12/23/24 08:52 stomach amoxicillin (From Augmentin) AdvReac Intermediate Nausea/Vom/ Verified 12/23/24 08:52 Diarrhea clavulanic acid (From AdvReac Intermediate Nausea/Vom/ Verified 12/23/24 08:52 Augmentin) Diarrhea lisinopril AdvReac Intermediate cough Verified 12/23/24 08:52 atorvastatin (From Lipitor) AdvReac Pain in Verified 12/23/24 08:52 joints gemfibrozil (From Lopid) AdvReac Pain in Verified 12/23/24 08:52 joints niacin AdvReac Other Verified 12/23/24 08:52 Family History Grandfather CVA (cerebral vascular accident) Depression Brother COPD (chronic obstructive pulmonary disease) Grandmother Depression Son Arthritis Father Arthritis CAD (coronary artery disease) Mother Hypertension Hyperlipidemia Pacemaker Other Cancer Surgical History Hx of colonoscopy History of umbilical hernia repair (~2013) History of partial colectomy (~1993) History of bilateral cataract extraction S/P umbilical hernia repair, follow-up exam Hx of tonsillectomy History of coronary artery stent placement (09/07/18) H/O vasectomy History of left heart catheterization (11/12/18) History of prostate surgery Hx of appendectomy H/O hemorrhoidectomy (~1989) eye lesion removal Social History household members: spouse housing: house current occupational status: retired pets and animals: No Smoking Status: Never smoker second hand exposure: No alcohol intake: never substance use type: does not use caffeine: No what type of physical activity do you participate in: walking frequency: 5-6 times per week Review of Systems (Anesthesia) ROS Narrative System reviewed and no additional complaints, except as documented.
--- NOTE | 2024-12-28 14:46 | PCM.HP.STD ---
HPI - General General Date of Admission: 12/28/24 Date of Service: 12/28/24 Chief Complaint: GERD and abdominal pain HPI Narrative IMANI MORA, is a 83 M who presents for the evaluation of abdominal pain and GERD OV 8.5.24 Pt here for f/u from ED for abdominal pain. Pt reports he has not had abdominal pain or constipation like he did when he went to the ED. He feels that maybe some of his issues is from crohn's. States he is very bloated. He denies blood in stool, vomiting, or constipation. Takes hyoscyamine, gabapentin, ondansetron, pantoprazole, rosuvastatin and prednisone. EGD 8.12.24 Simple Endoscopic Score for Crohn's Disease: 10, mucosal inflammatory changes secondary to Crohn's disease. Biopsied. Patent end-to-end ileo-colonic anastomosis, characterized by healthy appearing mucosa. OV 10.10.24 pt reports that he is feeling well overall and only notes some blood in his stool when he strains. Pt states that he was never able to get Stelara approved, and does not wish to keep pursing that. azathioprine 50 mg PO QDAY 30 tabs 3RF [facility] Medical History Depression Easy bruising Heartburn Sleep apnea Chronic cough Abnormal YGS-un-rcazaioxqf ratio Lightheadedness Shortness of breath Acute sinusitis, unspecified URI (upper respiratory infection) Tremor History of Holter monitoring History of ulceration Elevated liver enzymes Elevated C-reactive protein (CRP) Rosacea Psoriasis Loss of hearing High cholesterol History of Crohn's disease Non-smoker History of echocardiogram History of stress test Cardiology follow-up encounter Abdominal pain Electrolyte abnormality Acute maxillary sinusitis, unspecified Viral syndrome Malaise and fatigue Macrocytosis HTN (hypertension) Debility Vertigo CHERELLE (acute kidney injury) CAD (coronary artery disease) Wears hearing aid Wears glasses Prostate disease Back pain Migraine headache History of hiatal hernia CPAP (continuous positive airway pressure) dependence Asthma Umbilical hernia Lumbar back pain with radiculopathy affecting right lower extremity Piriformis syndrome Degenerative disc disease Bilateral knee pain 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 Thyroid disease Essential hypertension Anxiety Atherosclerotic heart disease of [place] coronary artery with other forms of angina pectoris EH (obstructive sleep apnea) Crohns disease Nonrheumatic tricuspid (valve) insufficiency Hypothyroidism Arthritis BPH (benign prostatic hyperplasia) Long-term current use of high risk medication other than anticoagulant Restless leg syndrome Hyperlipidemia Gastroesophageal reflux disease Home Medications ?Medication ?Instructions ?Recorded ?Last Taken ?Type aspirin 81 mg chewable tablet 81 mg PO QHS Heart 03/20/14 12/24/24 History multivitamin with folic acid 400 1 tab PO DAILY Vitamin 03/20/14 05/01/24 History mcg tablet coenzyme Q10 75 mg capsule (Ultra 30 mg PO DAILY pain 06/01/19 05/01/24 History CoQ10) wheat dextrin 3 gram/3.5 gram oral 1 ea PO DAILY supplement 09/26/19 05/01/24 History powder packet diclofenac sodium 1 % topical gel 2 g topical PRN PRN Pain 07/30/21 Unknown History cinnamon bark 500 mg capsule 1,000 mg PO DAILY pain 02/11/22 05/01/24 History (Cinnamon) bilberry 100 mg capsule 1,000 mg PO QHS Eye function 10/31/22 05/01/24 History ipratropium bromide 42 mcg (0.06 2 spray intranasal DAILY PRN 10/31/22 05/01/24 History %) nasal spray Congestion lactobacillus combination no.4 15 15,000 mmu cells PO DAILY 01/12/23 05/01/24 History billion cell capsule (Senior Probiotic) ketoconazole 2 % shampoo 1 applic topical DAILY 07/08/23 05/01/24 History ferrous sulfate 325 mg (65 mg 325 mg PO Q OTHER DAY #90 tabs 02/19/24 12/24/24 Rx iron) tablet,delayed release isosorbide mononitrate 60 mg 60 mg PO BID patient cannot cut 05/30/24 Unknown Rx tablet,extended release 24 hr the 120 mg tablet in half #180 tabs pantoprazole 40 mg tablet,delayed 40 mg PO DAILY #90 tabs 06/22/24 Unknown Rx release nitroglycerin 0.4 mg sublingual 0.4 mg sublingual Q5-15M #25 08/29/24 Unknown Rx tablet TABLETS Boswellia chilo extract 307 mg mg PO 09/07/24 Unknown History tablet benzonatate 100 mg capsule 100 mg PO TID PRN cough #60 caps 09/07/24 Unknown Rx gabapentin 600 mg tablet 600 mg PO QHS 3 months #90 tabs 12/18/24 Unknown Rx levothyroxine 112 mcg tablet 112 mcg PO QHS Thyroid #90 tabs 09/07/24 12/28/24 03:00 Rx omega 3-qml-xxo-fish oil 60 mg-90 1 cap PO DAILY supplement 09/07/24 12/27/24 History mg-500 mg capsule (Fish Oil) turmeric 400 mg capsule mg PO DAILY crohns 09/07/24 Unknown History beclomethasone dipropionate 80 1 inh inhalation BID #10.6 grams 09/26/24 Unknown Rx mcg/actuation HFA breath activated aerosol (Qvar RediHaler) labetalol 200 mg tablet 200 mg PO BID #180 TABLETS 10/12/24 12/28/24 07:00 Rx gabapentin 300 mg capsule 300 mg PO DAILY PRN pain 12/07/24 Unknown History losartan 25 mg tablet 25 mg PO BID #180 tabs 12/19/24 12/28/24 07:00 Rx rosuvastatin 5 mg tablet 5 mg PO QHS cholesterol #90 tabs 12/20/24 Unknown Rx sertraline 25 mg tablet 25 mg PO DAILY #90 tabs 12/20/24 12/28/24 07:00 Rx Allergy/AdvReac Type Severity Reaction Status Date / Time amlodipine (From Norvasc) AdvReac Intermediate upset Verified 12/28/24 14:34 stomach amoxicillin (From Augmentin) AdvReac Intermediate Nausea/Vom/ Verified 12/23/24 08:52 Diarrhea clavulanic acid (From AdvReac Intermediate Nausea/Vom/ Verified 12/28/24 14:34 Augmentin) Diarrhea lisinopril AdvReac Intermediate cough Verified 12/28/24 14:34 atorvastatin (From Lipitor) AdvReac Pain in Verified 12/28/24 14:34 joints gemfibrozil (From Lopid) AdvReac Pain in Verified 12/28/24 14:34 joints niacin AdvReac Other Verified 12/28/24 14:34 Family History Grandfather CVA (cerebral vascular accident) Depression Brother COPD (chronic obstructive pulmonary disease) Grandmother Depression Son Arthritis Father Arthritis CAD (coronary artery disease) Mother Hypertension Hyperlipidemia Pacemaker Other Cancer Surgical History Hx of colonoscopy History of umbilical hernia repair (~2013) History of partial colectomy (~1993) History of bilateral cataract extraction S/P umbilical hernia repair, follow-up exam Hx of tonsillectomy History of coronary artery stent placement (09/07/18) H/O vasectomy History of left heart catheterization (11/12/18) History of prostate surgery Hx of appendectomy H/O hemorrhoidectomy (~1989) eye lesion removal Social History household members: spouse housing: house current occupational status: retired pets and animals: No Smoking Status: Never smoker second hand exposure: No alcohol intake: never substance use type: does not use caffeine: No what type of physical activity do you participate in: walking frequency: 5-6 times per week ROS Constitutional Constitutional: Denies fatigue, fever(s), poor appetite, weight gain or weight loss Gastrointestinal Gastrointestinal: Denies belching, bloating, change in bowel habits, change in stool character, chewing difficulty, coffee ground emesis, constipation, cramping, diarrhea, dyspepsia, dysphagia, early satiety, excessive flatus, fecal incontinence, heartburn, hematemesis, hematochezia, hemorrhoids, loose stools, melena, nausea, odynophagia, rectal bleeding, tenesmus, vomiting or weight changes Vital Signs Vital Signs Vital Signs: 12/28/24 14:37 12/28/24 14:37 Temperature 97.4 F L Temperature Source Temporal Pulse Rate 63 Respiratory Rate 16 Respiratory Pattern Normal Blood Pressure 150/78 H Blood Pressure Mean 102 Blood Pressure Source Monitor Blood Pressure Position Semi-Fowlers Blood Pressure Location Left Arm Pulse Ox 97 Oxygen Delivery Method Room Air Weight Weight: 191 lb 12.835 oz Body Mass Index (BMI) 29.1 Physical Exam Const alert, oriented x3, no apparent distress and healthy appearing General Appearance: cooperative GI normal to inspection, nondistended, normoactive bowel sounds, soft to palpation, non-tender and non-distended Percussion: normal to percussion Rectal Exam: deferred Assessment & Plan Assessment/Plan (1) Iron deficiency: (2) Abdominal pain: (3) Gastroesophageal reflux disease: PLAN: Assessment and Plan Assessment and Plan (1) Crohn's disease of small intestine without complications: Status: Chronic Plan: Patient is here today for f/u after ED visit for abdominal pain that resulted in CT showing possible Crohns at the terminal ileum. Differential diagnosis includes Crohns, UC, viral enteritis, or IBD He underwent colonoscopy. These were the findings from the colonoscopy. -Findings: The perianal and digital rectal examinations were normal. The Simple Endoscopic Score for Crohn's Disease was determined based on the endoscopic appearance of the mucosa in the following segments: - Ileum: Findings include ulcers greater than 2 cm in size, greater than 30% ulcerated surfaces, 50-75% of surfaces affected and multiple narrowings that can be passed. Segment score: 10. - Right Colon: Findings include no ulcers present, no ulcerated surfaces, no affected surfaces and no narrowings. Segment score: 0. - Transverse Colon: Findings include no ulcers present, no ulcerated surfaces, no affected surfaces and no narrowings. Segment score: 0. - Left Colon: Findings include no ulcers present, no ulcerated surfaces, no affected surfaces and no narrowings. Segment score: 0. - Rectum: Findings include no ulcers present, no ulcerated surfaces, no affected surfaces and no narrowings. Segment score: 0. - Total SES-CD aggregate score: 10. Biopsies were taken with a cold forceps for histology. Verification of patient identification for the specimen was done. Estimated blood loss was minimal. There was evidence of a prior end-to-end ileo-colonic anastomosis in the ascending colon. This was patent and was characterized by healthy appearing mucosa. Multiple small-mouthed diverticula were found in the recto-sigmoid colon and sigmoid colon. Impression: - Simple Endoscopic Score for Crohn's Disease: 10, mucosal inflammatory changes secondary to Crohn's disease. Biopsied. - Patent end-to-end ileo-colonic anastomosis, characterized by healthy appearing mucosa. Recommendation: - Discharge patient to home. - Resume previous diet. - Continue present medications. - Await pathology results. - Repeat colonoscopy is recommended for surveillance. The colonoscopy date will be determined after pathology results from today's exam become available for review. He has been on prednisone since the procedure. His Crohn's is doing very well but he is having a lot of side effects from the prednisone. He is on 40 mg a day. We tried to get him Stelara but we were not able to get the medicine for him. Recommendation: -We will wean the prednisone to off -We will start azathioprine 50 mg a day to hopefully titrated up to 150 mg a day -Check CBC, CMP, ESR, CRP and amylase lipase -The risk-benefit benefits of azathioprine were explained to the patient. Medications: New azathioprine 50 mg PO QDAY 30 tabs 3RF
--- NOTE | 2024-12-28 15:15 | EGD_PTH ---
PATIENT: IMANI MORA LOC: EN U#:[id number] AGE/SX: 83/M ROOM: RE12/28/[address]: Dr. Te Leiva DO : 1940 BED: DIS: 12/28/2024 SPEC #: [id number] RECD: 12/29/24 08:37 STATUS: JAQUAN REEli #: [id number] CATY: 12/28/24 15:[address]: Te Leiva DEPT: SURGICAL PATHOLOGY RECD BY: Pradeep Horvath ENTERED: 12/29/24 08:38 SP TYPE: EGD BIOPSY JOSÉ DR: Dr. Tania Jackson MD Tissues: A - Esophagus, NOS Procedures: Surgery Specimen Level IV HEADER OPERATION: EGD with biopsy PRE-OP DIAGNOSIS: Iron deficiency, abdominal pain, gastroesophageal reflux disease, Crohn's disease of small intestine without complications TISSUE SUBMITTED: A- Distal esophagus biopsy MICROSCOPIC DIAGNOSIS A. Distal esophagus, biopsy: * Benign squamous epithelium * Oxyntocardiac type mucosa with mild chronic inflammation, negative for goblet cells MICROSCOPIC DESCRIPTION Slides are reviewed. GROSS DESCRIPTION A. Received in formalin in a container labeled with the patient's name, date of , and distal esophagus biopsy are 2 sellers-pink fragments of mucosal tissue measuring 0.3 x 0.3 x 0.3 cm and 0.7 x 0.2 x 0.2 cm. Submitted in toto in A1. [facility] 12-29-2024 CPT:58165
--- NOTE | 2024-12-28 15:55 | OP.CCLET_ITS ---
12/28/2024 Tania Jackson MD [address] [place] [address] [place] [address] Re : Upper GI endoscopy procedure for Chapo Miner Dear Dr. Jackson This procedure was performed on Saturday, December 28, 2024. My impressions and recommendations are as follows: Impressions : - Z-line irregular, 39 cm from the incisors. Biopsied. - No gross lesions in the entire stomach. - Normal third portion of the duodenum. Recommendations : - Discharge patient to home. - Resume previous diet. - Continue present medications. - Await pathology results. My findings are described in the full procedure note, which is enclosed. If I can be of further assistance, please feel free to contact me at . Sincerely, Te Leiva, 12/28/2024 3:54:55 PM This report has been signed electronically.
--- NOTE | 2024-12-28 15:55 | OP.EGD_ITS ---
Patient Name: Chapo Miner Procedure Date: 12/28/2024 3:29 PM Date of : 1940 Age: 83 Procedure: Upper GI endoscopy Indications: Iron deficiency anemia, Peptic ulcer Providers: Te Leiva DO Referring MD: Te Leiva DO Medicines: Monitored Anesthesia Care Patient Profile: This is an 83 year old male. Refer to note in patient chart for documentation of history and physical. Patient has symptoms. His most recent EGD for treatment of bleeding. Complications: No immediate complications. Procedure: Pre-Anesthesia Assessment: - Prior to the procedure, a History and Physical was performed, and patient medications and allergies were reviewed. The patient is competent. The risks and benefits of the procedure and the sedation options and risks were discussed with the patient. All questions were answered and informed consent was obtained. Patient identification and proposed procedure were verified by the physician in the pre-procedure area. Mental Status Examination: alert and oriented. Airway Examination: normal oropharyngeal airway and neck mobility. Respiratory Examination: clear to auscultation. CV Examination: normal. Prophylactic Antibiotics: The patient does not require prophylactic antibiotics. Prior Anticoagulants: The patient has taken no anticoagulant or antiplatelet agents except for NSAID medication. ASA Grade Assessment: II - A patient with mild systemic disease. After reviewing the risks and benefits, the patient was deemed in satisfactory condition to undergo the procedure. The anesthesia plan was to use monitored anesthesia care (MAC). Immediately prior to administration of medications, the patient was re-assessed for adequacy to receive sedatives. The heart rate, respiratory rate, oxygen saturations, blood pressure, adequacy of pulmonary ventilation, and response to care were monitored throughout the procedure. The physical status of the patient was re-assessed after the procedure. After obtaining informed consent, the endoscope was passed under direct vision. Throughout the procedure, the patient's blood pressure, pulse, and oxygen saturations were monitored continuously. The Endoscope was introduced through the mouth, and advanced to the third part of the duodenum. Small bowel enteroscopy was deemed necessary. The upper GI endoscopy was accomplished without difficulty. The patient tolerated the procedure well. Scope In: 3:43:41 PM Scope Out: 3:47:19 PM Total Procedure Duration Time 0 hours 3 minutes 38 seconds Findings: The Z-line was irregular and was found 39 cm from the incisors. Biopsies were taken with a cold forceps for histology. Verification of patient identification for the specimen was done. Estimated blood loss was minimal. No gross lesions were noted in the entire examined stomach. The third portion of the duodenum was normal. Impression: - Z-line irregular, 39 cm from the incisors. Biopsied. - No gross lesions in the entire stomach. - Normal third portion of the duodenum. Recommendation: - Discharge patient to home. - Resume previous diet. - Continue present medications. - Await pathology results. Procedure Code(s): --- Professional --- 85369, Small intestinal endoscopy, enteroscopy beyond second portion of duodenum, not including ileum; with biopsy, single or multiple CPT copyright 2021 [employer]. All rights reserved. The codes documented in this report are preliminary and upon medical record coder review may be revised to meet current compliance requirements. Te Leiva DO 12/28/2024 3:54:55 PM This report has been signed electronically. Number of Addenda: 0 Note Initiated On: 12/28/2024 3:29 PM
--- NOTE | 2024-12-28 15:59 | PCM.POST.ANE ---
Anesthesia: Postop Eval I Current Vital Signs Temperature: 97.9 F Pulse Rate: 79 Blood Pressure: 114/66 Respiratory Rate: 16 Pulse Ox: 96 Oxygen Delivery Method: Room Air Assessment Airway patent: Yes Spontaneous unlabored respirations: Yes Mental status: Asleep nausea: No Vomiting: No Anesthesia Complication: No Fluid Hydration Crystalloid volume administer (ml): 30 Total IV fluid infused: 30 Progress Note Anesthesia document: Postop Eval 1 completed: Yes
--- NOTE | 2024-12-28 16:24 | PCM.POSTANE2 ---
Anesthesia Postop Eval I Sum Postop Eval Completion status Anesthesia document: Postop Eval 1 completed: Yes Anesthesia Postop Eval I Summary Anesthesia Postop Eval I Summary: Anesthesia Postop Eval I: Assessment Summary Airway patent Yes 12/28/24 15:59 [email or web address] Spontaneous unlabored Yes 12/28/24 15:59 [email or web address] respirations Mental status Asleep 12/28/24 15:59 [email or web address] nausea No 12/28/24 15:59 [email or web address] Vomiting No 12/28/24 15:59 [email or web address] Anesthesia Postop Eval I: Fluid Summary Crystalloid volume administer 30 12/28/24 15:59 [email or web address] (ml) Colloids volume administered ( ml) Blood Product volume administered (ml) Total IV fluid infused 30 12/28/24 15:59 [email or web address] Anesthesia Postop Eval I: Summary Notes Anesthesia Complication No 12/28/24 15:59 [email or web address] Anesthesia Complication Comment: Post-operative progress note Anesthesia: Postop Eval II Evaluation Mental status: Awake Pain Level: 0 nausea: No Vomiting: No
== END 2024-12-28 16:45 | disposition home or self-care (01) ==
LOC: EN 14:16 → AC 14:18
PROVIDERS: PCP Internal Medicine; Referring Provider Internal Medicine; Visit Provider Internal Medicine Gastroenterology
PROC: 0DJ08ZZ Inspection of Upper Intestinal Tract, Via Natural or Artificial Opening Endoscopic (ICD-10-PCS; CPT 43235; principal; 2024-12-28 15:10)
DX: K20.90 Esophagitis, unspecified without bleeding (principal); K50.90 Crohn's disease, unspecified, without complications; K27.9 Peptic ulcer, site unspecified, unspecified as acute or chronic, without hemorrhage or perforation; E61.1 Iron deficiency; I25.10 Atherosclerotic heart disease of native coronary artery without angina pectoris; E78.00 Pure hypercholesterolemia, unspecified; I10 Essential (primary) hypertension; Z95.5 Presence of coronary angioplasty implant and graft; Z99.89 Dependence on other enabling machines and devices; G47.33 Obstructive sleep apnea (adult) (pediatric)
CPT/HCPCS: 44361; 88305; A4216; J2405

== ENCOUNTER 2025-04-25 16:00 | Outpatient (RCR) | payer MEDICARE, OTHER, SELFPAY ==
[2024-09-07 11:18] VITALS: BMI 28.0
--- NOTE | 2025-01-26 11:05 | HP.PTEVAL_ITS ---
Patient's Visit Information Visit Information Visit Information: IMANI MORA is a 84 year old M referred to Physical Therapy by Dr. Azael Villegas MD with a diagnosis of Back pain. Date of Evaluation: 01/20/25 Physical Therapist: Emmanuel Rahman DPT Visit Plan Frequency: 2x /Week Duration: 6 Weeks Plan: 1) neutral spine core stability 2) re check tolerance to extension. He had a mild + response. If continues to have + response then progress motion/forces. Subjective Subjective: Pt. is here today for his initial evaluation with diagnosis of back pain. Patient is doing okay. He has been seeing pain management with some relief. Pt. reports no radicular symptoms currently. Pt. reports no weakness in either LE. Pt. reports pain mostly in lumbar spine, occasional tingling in LLE. Pt. reports minimal issues with sitting, some mild increase with standing. Sleeping is okay. Pt. is able to do most activities at home without limitations. Pt. is is able to sit for longer periods well, but has difficulty with prolonged static standing. He is hopeful to get back to all household activities without limitations. Pain Lumbar spine: Pain Intensity (Out of 10): 2 Objective Objective: POSTURE: Pt. has decent posture in stance. Slight fwrd flex PALPATION: Pt. has tenderness at lumbar spine with marked hypomobility with spring testing. NEURO: Pt. has normal sensation throughout BLEs. Normal DTR noted. PT. is able to rise on heels and toes without issues. ROM: Lumbar spine: flexion min loss NE, ext mod loss NE, Sb min loss bilat NE, rotation mod loss bilat NE. Tightness in B HS and hip flexors. MMT: Pt. has 5/5 strength throughout distal BLEs. Pt. has poor+ core strength., GAIT: Pt. has fairly normal gait pattern noted. Pt. has fairly normal arm swing. STAIRS: normal with use of BHR. Balance/Special Test Scores Oswestry Low Back Score: 10 Goals Goal 1:: LTG: Pt. to be I with HEP. Goal Time Frame: 4-6 Weeks Goal 2:: STG: Pt. to have increased lumbar ROM by 25%. Goal Time Frame: 2-4 Weeks Goal 3:: LTG: Pt. to complete all daily activities without increase in symptoms. Goal Time Frame: 4-6 Weeks Goal 4:: LTG: pt. to have increased core strength to fair+. Goal Time Frame: 4-6 Weeks Rehabilitation Potential Physical Therapy Diagnosis: Pt. has signs and symptoms consistent with low back pain. Pt. has marked hypomobility and core weakness. He would benefit from PT to address the above limitations progressing back to all household work without symptoms. Rehabilitation Potential: Excellent Anticipated Interventions Patient/Client Instruction: Educate patient on: Condition, Plan of Care, Risk Factors and Benefits of Fitness Program For the Purpose of:: To improve decision making, To facilitate caregiver knowledge, To improve self management, To prevent re-injury and To improve ability to perform tasks related to life management Therapeutic Exercise to Include: Strength training, Power training, Endurance training, Balance training, Postural training, Flexibilty training, Gait and locomotor training, Passive ROM, Active ROM and Dynamic Lumbar Stabilization For the Purpose of:: To decrease pain, To decrease swelling/inflammation, To in crease ROM, To improve nutrient delivery to tissue, To increase oxygenation perfusion, To improve muscle performance and motor function, To improve ability to perform ADL's, To improve health of tissue, To decrease soft tissue restriction and To increase flexibility/ROM Text: Thank you for the opportunity to evaluate your patient. For Medicare and Medicare HMO plans, please review the plan of care and approve it. It will need to be FAXED BACK to us at [phone] for Medicare purposes. For Medicare only, by signing this I certify the plan of care. Please let me know if there are questions or concerns regarding this plan of care. Physician Signature: Date:
--- NOTE | 2025-04-04 16:39 | HP.PTREVAL ---
Re-Evaluation Intro: Dr. Azael Villegas MD, It has been my pleasure to treat IMANI MORA over the last 5 visits for Back pain. Please see the progress note below for an update on the physical therapy plan of care! Subjective Subjective: Pt. reports he was sick and was unable to come back to PT due to it. Pt. reports 0/10 pain at rest. He was able to push mow yesterday without much issues. Pt. reports being a little better overall since starting PT. He does have relief with use of Voltarin gel. Objective Objective/Function: ROM: Flexion min/mod loss increase nW, ext min loss decrease NB, SB min loss NE, rotation min loss bilat NE. Pt. has tightness in B hip flexors MMT: Normal B LE strength, core strength poor. GAIT: Pt. has marked anterior pelvic tilt in stance and gait. He has decreased hip extension bilaterally no pain with gait today. Pt. has benefit from hip flexor stretching, and REIL. I would like him to add in gym core and hip strengthening as well. Plan Plan Plan: I am extending bill in PT. He was not able to attend many visits due to illness. He is feeling better now. Focus on REIL, hip flexor stretcing progressing to gym core/hip strengthening. Balance/Gait/Functional tests Balance/Special Test Scores Oswestry Low Back Score: 12 Goals Goals Goal 1:: LTG: Pt. to be I with HEP. Goal Time Frame: 4-6 Weeks Goal Progress: Progressing Goal 2:: STG: Pt. to have increased lumbar ROM by 25%. Goal Time Frame: 2-4 Weeks Goal Progress: Progressing Goal 3:: LTG: Pt. to complete all daily activities without increase in symptoms. Goal Time Frame: 4-6 Weeks Goal Progress: Progressing Goal 4:: LTG: pt. to have increased core strength to fair+. Goal Time Frame: 4-6 Weeks Goal Progress: Progressing Anticipated Interventions Anticipated Interventions Patient/Client Instruction: Educate patient on: Condition, Plan of Care, Risk Factors and Benefits of Fitness Program For the Purpose of:: To improve decision making, To facilitate caregiver knowledge, To improve self management, To prevent re-injury and To improve ability to perform tasks related to life management Therapeutic Exercise to Include: Strength training, Power training, Endurance training, Balance training, Postural training, Flexibilty training, Gait and locomotor training, Passive ROM, Active ROM and Dynamic Lumbar Stabilization For the Purpose of:: To decrease pain, To decrease swelling/inflammation, To increase ROM, To improve nutrient delivery to tissue, To increase oxygenation perfusion, To improve muscle performance and motor function, To improve ability to perform ADL's, To improve health of tissue, To decrease soft tissue restriction and To increase flexibility/ROM Re-Evaluation Ending Re-evaluation ending: Please do not hesitate to contact me at [phone] by phone or if you have questions or concerns regarding this new plan of care! Sincerely, MELISSA TavarezT
--- NOTE | 2025-04-26 11:46 | HP.PTDCSUM ---
Discharge Summary D/C summary: It has been my pleasure to treat IMANI MORA referred by Dr. Azael Villegas MD, with the diagnosis of Back pain for a total of 10 visit(s). Discharge Date: 04/26/25 Please see the following information for a summary of their discharge status. Subjective Subjective: Sore generalized R>L over the weekend. Unsure if it was exercise related or not. Symptoms back to baseline 0/10. Pain Lumbar spine: Pain Intensity (Out of 10): 0 Overall Improvement % Improvement: 30 Objective Objective/Function: -Provided exercise log outlined with machine settings, sets, reps and loads. -Communicated good understanding of gym program. -Plans to continue gym exercises 2 days/week. Goals Goal 1:: LTG: Pt. to be I with HEP. Goal Progress: Progressing Goal 2:: STG: Pt. to have increased lumbar ROM by 25%. Goal Progress: Progressing Goal 3:: LTG: Pt. to complete all daily activities without increase in symptoms. Goal Progress: Progressing Goal 4:: LTG: pt. to have increased core strength to fair+. Goal Progress: Progressing Plan Plan: Re-assess with Emmanuel Rahman PT, DPT. D/C Information d/c sentence: If there are questions or concerns regarding this patient's physical therapy, please feel free to call me at [phone]. Thank you for the referral of this patient. Sincerely, Emmanuel Rahman, DPT Balance/Gait/Functional tests Balance/Special Test Scores Oswestry Low Back Score: 11 Improvement % Improvement: 30
== END 2025-04-25 19:00 | disposition home or self-care (01) ==
LOC: PT 16:00
PROVIDERS: PCP Internal Medicine; Referring Provider Anesthesiology Pain Medicine; Visit Provider Anesthesiology Pain Medicine
DX: M54.9 Dorsalgia, unspecified (principal)
CPT/HCPCS: 97110; 97161; 97530

== ENCOUNTER → 2025-04-26 | Outpatient (CLI) | payer MEDICARE, OTHER, SELFPAY ==
[2024-09-07 11:18] VITALS: BMI 28.0
[2025-04-26 15:38] LABS: Hematocrit 35.9 % (40-54); Hemoglobin 12.3 g/dL (13.0-16.5); Immature Granulocytes Count 0.020 X10^3/uL (0.0-0.0); Mean Corp Hgb Conc 34.3 g/dL (32-36); Mean Corpuscular Volume 95.0 fL (80-94); Mean Platelet Vol. 9.3 fl (6.2-12.0); NRBC Flagged by Analyzer 0 % (0-5); Platelet Count 265 K/mm3 (150-450); RBC Distribution Width CV 11.9 % (11.6-14.6); RBC Distribution Width SD 41.2 fl (35.1-43.9); Red Blood Count 3.78 M/mm3 (4.6-6.2); White Blood Count 4.7 K/mm3 (4.4-11.0)
[2025-04-26 16:09] LABS: Anion Gap 11 (5-15); BUN 24 mg/dL (4-19); BUN/Creat Ratio 19.6 RATIO (10-20); Calcium,Total 9.1 mg/dL (7.6-11.0); Carbon Dioxide 25.1 mmol/L (21.0-32.0); Chloride 102 mmol/L (98-108); Glucose 116 mg/dL (70-99); Potassium 4.7 mmol/L (3.3-5.1)
[2025-04-27 09:24] LABS: Ferritin 208 ng/mL (37-417); Iron 96 ug/dL (65-175); Iron Binding Capacity,Total 337 ug/dL (250-450); Iron Binding Capacity,Unsat 241 ug/dL (228-428); Vitamin B12 586 pg/mL (180-914)
== END | disposition home or self-care (01) ==
LOC: BIMLAB 14:22
PROVIDERS: PCP Internal Medicine; Referring Provider Internal Medicine; Visit Provider Internal Medicine
DX: I10 Essential (primary) hypertension (principal); E03.9 Hypothyroidism, unspecified; D64.9 Anemia, unspecified
CPT/HCPCS: 36415; 80048; 82607; 82728; 83540; 83550; 84443; 85025

== ENCOUNTER → 2025-06-02 | Outpatient (CLI) | payer MEDICARE, OTHER, SELFPAY ==
[2025-05-17 09:04] VITALS: BMI 28.0
== END | disposition home or self-care (01) ==
LOC: LABSPEC 11:22
PROVIDERS: PCP Internal Medicine
DX: R05.8 Other specified cough (principal)
CPT/HCPCS: 87070; 87205

== ENCOUNTER → 2025-07-28 | Outpatient (CLI) | payer MEDICARE, OTHER, SELFPAY ==
[2025-05-17 09:04] VITALS: BMI 28.0
[2025-07-28 18:02] LABS: Anion Gap 10 (5-15); BUN 27 mg/dL (4-19); BUN/Creat Ratio 22.8 RATIO (10-20); Calcium,Total 8.3 mg/dL (7.6-11.0); Carbon Dioxide 25.7 mmol/L (21.0-32.0); Chloride 102 mmol/L (98-108); Glucose 101 mg/dL (70-99); Potassium 4.7 mmol/L (3.3-5.1)
[2025-07-28 18:03] LABS: Hematocrit 37.7 % (40-54); Hemoglobin 12.7 g/dL (13.0-16.5); Immature Granulocytes Count 0.020 X10^3/uL (0.0-0.0); Mean Corp Hgb Conc 33.7 g/dL (32-36); Mean Corpuscular Volume 96.7 fL (80-94); Mean Platelet Vol. 9.5 fl (6.2-12.0); NRBC Flagged by Analyzer 0 % (0-5); Platelet Count 275 K/mm3 (150-450); RBC Distribution Width CV 12.2 % (11.6-14.6); RBC Distribution Width SD 43.2 fl (35.1-43.9); Red Blood Count 3.90 M/mm3 (4.6-6.2); White Blood Count 5.4 K/mm3 (4.4-11.0)
== END | disposition home or self-care (01) ==
LOC: MTLAB 15:16
PROVIDERS: PCP Internal Medicine; Referring Provider Internal Medicine; Visit Provider Internal Medicine
DX: I10 Essential (primary) hypertension (principal)
CPT/HCPCS: 36415; 80048; 84443; 85025

== ENCOUNTER → 2025-08-08 | Outpatient (CLI) | payer MEDICARE, OTHER, SELFPAY ==
[2025-05-17 09:04] VITALS: BMI 28.0
== END | disposition home or self-care (01) ==
LOC: SL 12:05
PROVIDERS: PCP Internal Medicine; Referring Provider Internal Medicine; Visit Provider Internal Medicine
DX: G47.33 Obstructive sleep apnea (adult) (pediatric) (principal)
CPT/HCPCS: 98960; G0463

== ENCOUNTER → 2025-08-16 | Outpatient (CLI) | payer MEDICARE, OTHER, SELFPAY ==
[2025-05-17 09:04] VITALS: BMI 28.0
--- NOTE | 2025-08-16 08:48 | RAD_ITS ---
PROCEDURE: THORACIC SPINE 2 VIEWS 08/16/2025 REASON FOR EXAM: BACK PAIN TECHNIQUE: Procedure Code: RADSPT2 Modality: DX Procedure: THORACIC SPINE 2 VIEWS COMPARISON: Lumbar spine of the same day FINDINGS: Vertebrae: No fracture Discs: Disc spaces are well preserved. Alignment: Mild curvature thoracolumbar spine to the left centered at T10. Other: Aortic atherosclerosis. Partially imaged lungs are clear. RAD/Thoracic Spine 2 Views IMPRESSION: Curvature thoracolumbar spine to the left centered at T10. Otherwise unremarka ble. Reading Location: [id number]
--- NOTE | 2025-08-16 08:48 | RAD_ITS ---
PROCEDURE: L/S SPINE MIN 4 VIEWS 08/16/2025 REASON FOR EXAM: LOW BACK PAIN TECHNIQUE: Procedure Code: RADSPLS Modality: DX Procedure: L/S SPINE MIN 4 VIEWS COMPARISON: March 17, 2022 FINDINGS: Alignment: Curvature thoracolumbar spine to the right centered at L2. Vertebra/discs: Mild disc space narrowing L4/5, L5/S1. Bone island in L3 is benign. Mild lower lumbar facet hypertrophy, [id number] related to the curvature. Aortic atherosclerosis is present. 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 Reading Location: [id number]
[2025-08-16 13:14] LABS: CPK Total, Creatine Kinase 92 U/L (24-195); CRP 3.14 mg/L (0.0-3.0)
[2025-08-18 08:07] LABS: ANTINUCLEAR ANTIBODIES DIRECT Negative (Negative)
== END | disposition home or self-care (01) ==
LOC: MTLAB 08:48
PROVIDERS: PCP Internal Medicine; Referring Provider Physician Assistant; Visit Provider Physician Assistant
DX: M54.6 Pain in thoracic spine (principal); M54.50 Low back pain, unspecified; M25.50 Pain in unspecified joint
CPT/HCPCS: 36415; 72070; 72110; 82550; 85652; 86038; 86140; 86200; 86225; 86235; 86431